=== PATIENT | female | born 1985 | race Caucasian/White ===

== ENCOUNTER 2017-02-01 05:39 | Outpatient (CLI) | payer MEDICAID ==
[~2017-02-01] VITALS: Ht 172.7 cm; Wt 103.9 kg
[~2017-02-01 05:39] MED LIST: AC325T PO; ALBU17AE23 IH; AMOX1TAB12 PO; AMOX500C2 PO; AMOX500T2 PO; ANTI ANXIETY; BUSP5TAB59 PO; BUTA1TAB55 PO; CEPH500C PO; CITA10TA70 PO; DCS100C PO; DULO60CA6 PO; FAMO40TA6 PO; FERR-74 PO; FLUO20CA25 PO; FLUO40CA PO; FRS325T PO; Famotidine PO; HYDR-1231 PO; HYDR-2997 PO; IBP800T PO; Ibuprofen PO; METR500T PO; NITR100C3 PO; ONDA4TAB11 PO; OXC5T PO; PNV1TABL67 PO; PREN-93 PO; PREN1TAB39 PO; PREN1TAB71 PO; PROP1TAB77; SULF-222 PO; TRM50T PO; ZPR40C PO; antibiotic PO
[2017-02-01] MEDS ORDERED: VILA40TA PO (14:20)
[2017-02-03] MEDS ORDERED: DICY10CA59 PO (11:56)
== END 2017-02-01 14:26 ==
LOC: PREOP 05:39
PROVIDERS: ATTEND Surgery Pediatric Surgery
DX: Z01.818 Encounter for other preprocedural examination (principal); R19.5 Other fecal abnormalities; R19.7 Diarrhea, unspecified

== ENCOUNTER → 2017-02-03 | Day surgery (SDC) | payer MEDICAID ==
[~2017-02-03] VITALS: Ht 172.7 cm; Wt 103.9 kg
[~2017-02-03] MED LIST changes: +ACETAMINOPHEN 325 MG TABLET/CAPLET (TYLENOL) PO PRN; +DICY10CA59 PO; +FLUMAZENIL (ROMAZICON) 0.1 MG/ML 5 ML VIAL INJ PRN; +HURRICAINE EXT TUBE (BENZOCAINE) XX PRN; +HYDROcodone/APAP 5 MG/325 MG (LORTAB) TAB PO PRN; +LIDOCAINE JELLY 2% (XYLOCAINE) 5 ML TUBE MM PRN; +MIDAZOLAM 2 MG/2 ML (VERSED) VIAL IVP PRN; +MIDAZOLAM 2 MG/2 ML (VERSED) VIAL ONE; +NALOXONE 0.4 MG/ML 1 ML (NARCAN) VIAL IVP PRN; +NS IV 1000 ML 0 ML ONE; +NS IV 500 ML 500 ML IV PRN; +NS IV 500 ML 500 ML ONE; +ONDANSETRON 4 MG/2 ML (SDV) Z0FRAN IV PRN; +VILA40TA PO; +fentaNYL INJECTION 100 MCG/2 ML AMP IVP PRN; +morphine INJ 10 MG/ML 1ML (SYR OR VIAL) IV PRN; +proPOfol 200 MG/20 ML (DIPRIVAN) VIAL IV ONE
[2017-02-03 09:05] VITALS: BP_SYST 133; BP_SYST 134; BP_DIAS 74; BP_DIAS 79
--- NOTE | 2017-02-03 09:43 | Conscious Sedation/ASA ---
Conscious Sedation Pre-Proced Time Reviewed: 09:40 ASA Class: 2 Airway Mallampati Classification: ([place] appropriate class) I. II. III, IV Lungs Heart ASA score ASA 1: a normal healthy patient ASA 2: a patient with a mild systemic disease (mid diabetes, controlled hypertension, obesity ASA 3: a patient with a severe systemic disease that limits activity (angina , COPD, prior Myocardial infarction) ASA 4: a patient with an incapacitating disease that is a constant threat to life (CHF, renal failure) ASA 5: a moribund patient not expected to survive 24 hrs. (ruptured aneurysm) ASA 6: a declared brain patient whose organs are being harvested. For emergent operations, add the letter E after the classification Grade 2 Sedation Plan: Analgesia, Amnesia, Plan communicated to team members, Discussed options with patient/fam, Discussed risks with patient/fam Note The patient is an appropriate candidate to undergo the planned procedure, sedation, and anesthesia. The patient immediately re-assessed prior to indication. ANGLE GARCIA MD Feb 03, 2017 9:43 am
--- NOTE | 2017-02-03 09:44 | Progress Note-Pre Operative ---
Pre-Operative Progress Note H&P Reviewed The H&P was reviewed, patient examined and no changes noted. Date H&P Reviewed: Feb 03, 2017 Time H&P Reviewed: 09:40 Pre-Operative Diagnosis: heme occ positive ANGLE GARCIA MD Feb 03, 2017 9:44 am
[2017-02-03 11:45] VITALS: BP 114/74
--- NOTE | 2017-02-03 11:55 | Progress Note-Post Operative ---
Post-Operative Progess Note Surgeon (s)/Cardiovascular Tech (s) Surgeon ANGLE GARCIA MD Cardiovascular Tech: none Pre-Operative Diagnosis heme occ positive Post-Operative Diagnosis chronic stage 2 ext and int hemorrhoids, small lesions anal canal, no inflammatory changes. Post-Op Procedure Note Date of Procedure: Feb 03, 2017 Name of Procedure Performed: Colonoscopy with bx. Description of the Procedure: Colonoscopy with bx. Findings of the Procedure . Anesthesia Type MAC Estimated blood loss (mL): minimal Specimen(s) collected/removed anal canal lesion. ANGLE GARCIA MD Feb 03, 2017 11:55 am
--- NOTE | 2017-02-03 11:57 | Discharge Inst-Surgical ---
D/C Lap Instructions-KIDO New, Converted, or Re-Newed RX: RX on Chart Follow Up PRN Activity as tolerated High Fiber Diet 25g or more per day Avoid Alcohol, Caffeine, Spicy [place] and Acid foods. Drink 64 fluid oz or more of fluids per day. Symptoms to Report: Fever over 101 degree F, Nausea/Vomiting If any problems/questions: Contact your physician or go to Emergency Room ANGLE GARCIA MD Feb 03, 2017 11:57 am
[2017-02-03 12:10] VITALS: BP 120/76
[2017-02-03 12:20] VITALS: BP 120/76
--- NOTE | 2017-02-03 15:02 | PROCEDURE REPORT ---
PROCEDURE PHYSICIAN: ANGLE GARCÍA DATE OF PROCEDURE: 02/03/2017 ATTENDING PRIMARY CARE PHYSICIAN: Dr. Josefa Jenkins. PREOPERATIVE DIAGNOSIS: 1. Chronic diarrhea. 2. Hemoccult positive stools. 3. Remote family history of colon cancer with her maternal grandfather having the disease. POSTOPERATIVE DIAGNOSES: 1. Chronic, stage II external and internal hemorrhoids. 2. Small multiple small lesions at the anal canal. 3. The remainder of the rectum and colon were normal. PROCEDURE: Colonoscopy with biopsy. SURGEON: Dr. García. ANESTHESIA: Monitored anesthesia care administered by anesthesia. ESTIMATED BLOOD LOSS: Minimal. FINDINGS: Chronic, stage II external and internal hemorrhoids. Within the anal canal just below the dentate line, were small fleshy projections which may indicate possible condyloma. The remainder of the rectum and colon were normal. There were no mucosal inflammatory changes, no polyps. DISPOSITION: The patient tolerated procedure well. Ms. Melisa Hartley is a 31-year-old female who is referred over to us for a colonoscopy. She has been having issues with diarrhea for a significant amount of time. She also reports crampy lower abdominal pain as well. She did have a Hemoccult test performed, which was positive. She also does report a remote family history of colon cancer with her maternal grandfather having the disease. The patient was brought to the endoscopy suite and laid in left lateral decubitus position. Due to her severe anxiety and needing MAC anesthesia in the past we consulted anesthesia for another MAC anesthesia. A digital rectal examination was performed. Chronic, stage II external and internal hemorrhoids were identified which were not actively edematous or inflamed and no bleeding. Normal sphincter tone was felt and there were no palpable mass. The endoscope was then intubated into the anus and the rectum gently insufflated. At just below the dentate line were small fleshy fingerlike projections. This may be consistent with condyloma. Biopsies were taken of one of these using forceps and electrocautery with visualization of good hemostasis. The endoscope was then advanced through the valves of Casey the rectum where no polyps or any neoplasms identified, as well as no mucosal inflammatory changes. The endoscope was then advanced through the sigmoid colon where no diverticulosis identified. The endoscope was advanced through the remainder of the descending, transverse, and ascending colon of the cecum. These segments were normal as well. There were no mucosal inflammatory changes or any polyps identified throughout the colon or rectum. The endoscope was slowly withdrawn while taking a second look and suctioning of residual air with no additional findings. The patient tolerated the procedure well. We will have her continue with medical management a high fiber diet with at least 25 grams of fiber per day to promote soft stools on a daily basis. We will also proceed with a trial of Bentyl for potential diarrhea, predominant irritable bowel syndrome, as well as [id number] antidiarrheals such as diphenoxylate. Job ID: [id number] Dictated Date: 02/03/2017 11:49:00 Facility Maintenance Worker Date: 02/03/2017 14:53:47 / vonnie
--- OUTSIDE RECORDS SUMMARY | 2017-03-07 16:43 | XMS REPORT ---
Author Author FABY GONZALEZ Organization 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
--- OUTSIDE RECORDS SUMMARY | 2017-03-07 16:43 | XMS REPORT ---
Author Author FABY GONZALEZ [facility] eClinicalWorks Address Unknown Phone Unavailable Care Team Providers Care Inspector Firearms Name Role Phone FABY GONZALEZ CP Unavailable Allergies No Known Allergies Problems Problem Type Condition Code Onset Dates Condition Status Assessment 30 weeks gestation of Z3A.30 Active Assessment Unspecified high-risk O09.90 Active Assessment Encounter for immunization Z23 Active Problem Major depressive disorder, recurrent episode, moderate F33.1 Active Problem Tobacco use affecting in second trimester, antepartum O99.332 Active Problem Generalized anxiety disorder F41.1 Active Problem ASCUS with positive high risk HPV 796.9 Active Problem Unspecified high-risk O09.90 Active Problem Atyp squam cell of undet signfc cyto smr crvx (ASC-US) R87.610 Active Problem Cervical high risk HPV (human papillomavirus) test positive R87.810 Active Medications No Known Medications Procedures Procedure Coding System Code Date Office Visit, Est Pt., Level 2 CPT-4 40564 Sep 17, 2015 TDAP (BOOSTRIX) CPT-4 46964 Sep 17, 2015 URINE-NO MICRO CPT-4 51492 Sep 17, 2015 SINGLE IMMUNIZATION ADMIN CPT-4 57777 Sep 17, 2015 Vital Signs Date/Time: Sep 17, 2015 Temperature 97.0 F Weight 224.9 lbs Height 68 in BMI 34.196 Index Blood Pressure Diastolic 70 mmHg Blood Pressure Systolic 126 mmHg Cardiac Monitoring Heart Rate 78 bpm Results Name Result Date Reference Range Unit Abnormality Flag UA OB DIP (IN HOUSE) Immunizations Vaccine Administration Date TDAP (BOOSTRIX) Sep 17, 2015 Summary Purpose eClinicalWorks Submission
--- OUTSIDE RECORDS SUMMARY | 2017-03-07 16:43 | XMS REPORT ---
Author Author FABY GONZALEZ [facility] eClinicalWorks Address Unknown Phone Unavailable Care Team Providers Care Culturist Name Role Phone FABY GONZALEZ Unavailable Allergies No Known Allergies Problems Problem Type Condition Code Onset Dates Condition Status Problem UTI in 646.60 Active Problem Vomiting 643.90 Active Problem ASCUS with positive high risk HPV 796.9 Active Problem Tobacco use disorder complicating , childbirth, or the puerperium, unspecified as to episode of care or not applicable 649.00 Active Assessment Dysuria R30.0 Active Problem Major depressive disorder, recurrent episode, moderate 296.32 Active Problem Unspecified high-risk V23.9 Active Medications No Known Medications Results No Known Results Summary Purpose eClinicalWorks Submission
--- OUTSIDE RECORDS SUMMARY | 2017-03-07 16:43 | XMS REPORT ---
Author Author SKY ANDERSON [facility] eClinicalWorks Address Unknown Phone Unavailable Care Team Providers Care Piping Blocker Name Role Phone SKY ANDERSON CP Unavailable Allergies, Adverse Reactions, Alerts Substance Reaction Event Type Naproxen Info Not Available Drug Allergy Problems Problem Type Condition Code Onset Dates Condition Status Problem UTI in 646.60 Active Problem Vomiting 643.90 Active Problem ASCUS with positive high risk HPV 796.9 Active Problem Tobacco use disorder complicating , childbirth, or the puerperium, unspecified as to episode of care or not applicable 649.00 Active Assessment Dental infection K04.7 Active Problem Major depressive disorder, recurrent episode, moderate 296.32 Active Problem Unspecified high-risk V23.9 Active Medications Medication Code System Code Instructions Start Date End Date Status Dosage BuSpar NDC 0 not defined One Daily [facility] [address] 27-0.8 MG Orally not defined Clindamycin HCl [facility] [address]-10 150 MG Orally 4 times a day Aug 07, 2015 Aug 17, 2015 2 caps for first dose then 1 capsule Procedures Procedure Coding System Code Date Office Visit, Est Pt., Level 3 CPT-4 60637 Aug 07, 2015 Vital Signs Date/Time: Aug 07, 2015 Temperature 97.0 F Weight 220.0 lbs Height 68 in BMI 33.451 Index Blood Pressure Diastolic 78 mmHg Blood Pressure Systolic 130 mmHg Cardiac Monitoring Heart Rate 80 bpm Results No Known Results Summary Purpose eClinicalWorks Submission
--- OUTSIDE RECORDS SUMMARY | 2017-03-07 16:43 | XMS REPORT ---
Author Author FABY GONZALEZ [facility] eClinicalWorks Address Unknown Phone Unavailable Care Team Providers Care Roller Shop Supervisor Name Role Phone FABY GONZALEZ Unavailable Allergies No Known Allergies Problems Problem Type Condition ICD-9 Code Onset Dates Condition Status Problem UTI in 646.60 Active Problem Vomiting 643.90 Active Problem ASCUS with positive high risk HPV 796.9 Active Problem Tobacco use disorder complicating , childbirth, or the puerperium, unspecified as to episode of care or not applicable 649.00 Active Assessment Unspecified high-risk V23.9 Active Problem Major depressive disorder, recurrent episode, moderate 296.32 Active Problem Unspecified high-risk V23.9 Active Medications No Known Medications Results No Known Results Summary Purpose eClinicalWorks Submission
--- OUTSIDE RECORDS SUMMARY | 2017-03-07 16:43 | XMS REPORT ---
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 Problem Generalized anxiety disorder F41.1 Active Problem Tobacco abuse Z72.0 Active Problem Cervical high risk HPV (human papillomavirus) test positive R87.810 Active Assessment Generalized anxiety disorder F41.1 Active Problem Major depressive disorder, recurrent episode, moderate F33.1 Active Problem Atyp squam cell of undet signfc cyto smr crvx (ASC-US) R87.610 Active Medications No Known Medications Procedures Procedure Coding System Code Date Psychotherapy, patient &/family, 30 minutes, established patient CPT-4 41595 May 11, 2016 Results No Known Results Summary Purpose Mobile [employer] Submission
--- OUTSIDE RECORDS SUMMARY | 2017-03-07 16:43 | XMS REPORT ---
Author Author FABY GONZALEZ Organization eClinicalWorks Address Unknown Phone Unavailable Care Team Providers Care Web Producer Name Role Phone FABY GONZALEZ CP Unavailable Allergies, Adverse Reactions, Alerts Substance Reaction Event Type Naproxen Info Not Available Drug Allergy Problems Problem Type Condition Code Onset Dates Condition Status Assessment Unspecified high-risk O09.90 Active Assessment 38 weeks gestation of Z3A.38 Active Problem Major depressive disorder, recurrent episode, [...] (human papillomavirus) test positive R87.810 Active Medications Medication Code System Code Instructions Start Date End Date Status Dosage Clindamycin HCl [facility] [address]-96 300 MG Orally every 8 hrs Nov 06, 2015 Nov 16, 2015 1 capsule Procedures Procedure Coding System Code Date Office Visit, Est Pt., Level 2 CPT-4 20912 Nov 13, 2015 URINE-NO MICRO CPT-4 46703 Nov 13, 2015 Vital Signs Date/Time: Nov 13, 2015 Temperature 98.4 F Weight 235.4 lbs Height 68 in BMI 35.792 Index Blood Pressure Diastolic 88 mmHg Blood Pressure Systolic 132 mmHg Cardiac Monitoring Heart Rate 84 bpm Results Name Result Date Reference Range Unit Abnormality Flag UA OB DIP (IN HOUSE) ----Glucose negative 20151113 ----Protein negative 20151113 Summary Purpose eClinicalWorks Submission
--- OUTSIDE RECORDS SUMMARY | 2017-03-07 16:43 | XMS REPORT ---
Author Author IRENA SHETH Organization eClinicalWorks Address Unknown Phone Unavailable Care Team Providers Care Inspector Wire Rope Name Role Phone IRENA SHETH CP Unavailable Allergies No Known Allergies Problems Problem Type Condition ICD-9 Code Onset Dates Condition Status Problem Vomiting 643.90 Active Problem Major depressive disorder, recurrent episode, moderate 296.32 Active Problem UTI in 646.60 Active Problem Tobacco use disorder complicating , childbirth, or the puerperium, unspecified as to episode of care or not applicable 649.00 Active Problem Unspecified high-risk V23.9 Active Problem Maternal drug dependence complicating , childbirth, or the puerperium, unspecified as to episode of care 648.30 Active Medications No Known Medications Results No Known Results Summary Purpose eClinicalWorks Submission
--- OUTSIDE RECORDS SUMMARY | 2017-03-07 16:43 | XMS REPORT ---
Author Author IRENA SHETH Organization eClinicalWorks Address Unknown Phone Unavailable Care Team Providers Care Property Manager Name Role Phone IRENA SHETH CP Unavailable Allergies No Known Allergies Problems Problem Type Condition ICD-9 Code Onset Dates Condition Status Problem Absence of menstruation 626.0 Active Problem Vomiting alone 787.03 Active Problem Cough 786.2 Active Problem Vomiting 643.90 Active Problem examination or test, negative result V72.41 Active Problem UTI in 646.60 Active Problem Major depressive disorder, recurrent episode, moderate 296.32 Active Problem Diarrhea 787.91 Active Problem Other malaise and fatigue 780.79 Active Problem Lump or mass in breast 611.72 Active Problem Tobacco use disorder complicating , childbirth, or the puerperium, unspecified as to episode of care or not applicable 649.00 Active Problem Maternal drug dependence complicating , childbirth, or the puerperium, unspecified as to episode of care 648.30 Active Problem Infections of genitourinary tract in , unspecified as to episode of care 646.60 Active Problem Abdominal pain, unspecified site 789.00 Active Problem Unspecified high-risk V23.9 Active Medications No Known Medications Results No Known Results Summary Purpose eClinicalWorks Submission
--- OUTSIDE RECORDS SUMMARY | 2017-03-07 16:43 | XMS REPORT ---
Author Author SUZANNE BURNHAM [facility] eClinicalWorks Address Unknown Phone Unavailable Care Team Providers Care Training And Development Coordinator Name Role Phone SUZANNE BURNHAM Unavailable Allergies [...] Coding System Code Date Psychotherapy, patient &/family, 45 minutes, established patient CPT-4 26595 Sep 16, 2016 Results No Known Results Summary Purpose [employer]Works Submission
--- OUTSIDE RECORDS SUMMARY | 2017-03-07 16:43 | XMS REPORT ---
Author Author FABY GONZALEZ [facility] eClinicalWorks Address Unknown Phone Unavailable Care Team Providers Care Office Rep Name Role Phone FABY GONZALEZ Unavailable Allergies [...] high-risk V23.9 Active Medications No Known Medications Procedures Procedure Coding System Code Date URINALYSIS, AUTO, W/O SCOPE CPT-4 43840 Aug 05, 2015 URINE CULTURE/COLONY COUNT CPT-4 10040 Aug 05, 2015 Results No Known Results Summary Purpose eClinicalWorks Submission
--- OUTSIDE RECORDS SUMMARY | 2017-03-07 16:43 | XMS REPORT ---
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 Problem Generalized anxiety disorder F41.1 Active Problem Tobacco abuse Z72.0 Active Problem Cervical high risk HPV (human papillomavirus) test positive R87.810 Active Assessment Encounter for Depo-Provera contraception Z30.42 Active Problem Major depressive disorder, recurrent episode, moderate F33.1 Active Problem Atyp squam cell of undet signfc cyto smr crvx (ASC-US) R87.610 Active Medications No Known Medications Procedures Procedure Coding System Code Date THER/PROPH/DIAG INJ, SC/IM CPT-4 46696 Sep 01, 2016 DEPO PROVERA (150 MG/ML) CPT-4 J1050 Sep 01, 2016 Results No Known Results Summary Purpose eClinicalWorks Submission
--- OUTSIDE RECORDS SUMMARY | 2017-03-07 16:43 | XMS REPORT ---
Author Author FABY GONZALEZ eClinicalWorks Address Unknown Phone Unavailable Care Team Providers Care Manager Latin Name Role Phone FABY GONZALEZ CP Unavailable Allergies No Known Allergies Problems Problem Type Condition Code Onset Dates Condition Status Assessment 37 weeks gestation of Z3A.37 Active Assessment Unspecified high-risk O09.90 Active Assessment Dental infection K04.7 Active Problem [...] Date End Date Status Dosage Clindamycin HCl [facility] [address]-93 300 MG Orally every 8 hrs Nov 06, 2015 Nov 16, 2015 1 capsule Procedures Procedure Coding System Code Date Office Visit, Est Pt., Level 2 CPT-4 83149 Nov 06, 2015 URINE-NO MICRO CPT-4 28518 Nov 06, 2015 Vital Signs Date/Time: Nov 06, 2015 Temperature 97.6 F Weight 231.4 lbs Height 68 in BMI 35.184 Index Blood Pressure Diastolic 78 mmHg Blood Pressure Systolic 117 mmHg Cardiac Monitoring Heart Rate 82 bpm Results Name Result Date Reference Range Unit Abnormality Flag UA OB DIP (IN HOUSE) ----Glucose negative 20151106 ----Protein negative [id number] Summary Purpose eClinicalWorks Submission
--- OUTSIDE RECORDS SUMMARY | 2017-03-07 16:43 | XMS REPORT ---
Author Author IRENA SHETH Organization eClinicalWorks Address Unknown Phone Unavailable Care Team Providers Care Vending Supervisor Name Role Phone IRENA SHETH CP Unavailable Allergies, Adverse Reactions, Alerts Substance Reaction Event Type Naproxen Info Not Available Drug Allergy Problems Problem Type Condition ICD-9 Code Onset [...] Lump or mass in breast 611.72 Active Assessment UTI in 646.60 Active Assessment Unspecified high-risk V23.9 Active Assessment Vomiting 643.90 Active Problem Tobacco use disorder complicating , childbirth, or the puerperium, unspecified as to episode of care or not applicable 649.00 Active Problem Maternal drug dependence complicating , childbirth, or the puerperium, unspecified as to episode of care 648.30 Active Assessment test positive V72.42 Active Problem Infections of genitourinary tract in , unspecified as to episode of care 646.60 Active Problem Abdominal pain, unspecified site 789.00 Active Problem Unspecified high-risk V23.9 Active Medications Medication Code System Code Instructions Start Date End Date Status Dosage BuSpar NDC 0 not defined Amoxicillin [facility] [address]-80 500 MG Orally Twice a day Jun 18, 2015 Jun 25, 2015 1 tablet Zofran ODT [facility] [address]-62 8 MG Orally every 8 hrs as needed Jun 18, 2015 as directed Procedures Procedure Coding System Code Date URINE CULTURE/COLONY COUNT CPT-4 75503 Jun 18, 2015 Office Visit, Est Pt., Level 3 CPT-4 68260 Jun 18, 2015 URINALYSIS, AUTO, W/O SCOPE CPT-4 86230 Jun 18, 2015 Vital Signs Date/Time: Jun 18, 2015 Temperature 98.7 F Weight 218.1 lbs Height 68 in BMI 33.16 Index Blood Pressure Diastolic 82 mmHg Blood Pressure Systolic 120 mmHg Cardiac Monitoring Heart Rate 76 bpm Results Name Result Date Reference Range Unit Abnormality Flag UA W/CULTURE IF INDICATED (IN HOUSE) CULTURE, URINE Summary Purpose eClinicalWorks Submission
--- OUTSIDE RECORDS SUMMARY | 2017-03-07 16:43 | XMS REPORT ---
Author Author FABY GONZALEZ [facility] eClinicalWorks Address Unknown Phone Unavailable Care Team Providers Care Biochemistry Professor Name Role Phone FABY GONZALEZ CP Unavailable [...] Medications Procedures Procedure Coding System Code Date DEPO PROVERA (150 MG/ML) CPT-4 J1050 Jun 15, 2016 THER/PROPH/DIAG INJ, SC/IM CPT-4 92225 Jun 15, 2016 URINE TEST CPT-4 95570 Jun 15, 2016 Results No Known Results Summary Purpose eClinicalWorks Submission
--- OUTSIDE RECORDS SUMMARY | 2017-03-07 16:43 | XMS REPORT ---
Author Author FABY GONZALEZ eClinicalWorks Address Unknown Phone Unavailable Care Team Providers Care Finish Mill Operator Name Role Phone FABY GONZALEZ CP Unavailable Allergies, Adverse Reactions, Alerts Substance Reaction Event Type Naproxen Info Not Available Drug Allergy Problems Problem Type Condition Code Onset Dates Condition Status Assessment Unspecified high-risk O09.90 Active Assessment 34 weeks gestation of Z3A.34 Active Problem Major depressive disorder, recurrent episode, [...] Instructions Start Date End Date Status Dosage One Daily [facility] [address] 27-0.8 MG Orally not defined BuSpar NDC 0 not defined Procedures Procedure Coding System Code Date Office Visit, Est Pt., Level 2 CPT-4 38866 Oct 15, 2015 URINE CULTURE/COLONY COUNT CPT-4 31734 Oct 15, 2015 URINALYSIS, AUTO, W/O SCOPE CPT-4 27550 Oct 15, 2015 Vital Signs Date/Time: Oct 15, 2015 Temperature 97.8 F Weight 229.4 lbs Height 68 in BMI 34.88 Index Blood Pressure Diastolic 84 mmHg Blood Pressure Systolic 126 mmHg Cardiac Monitoring Heart Rate 84 bpm Results Name Result Date Reference Range Unit Abnormality Flag UA LONG DIP (IN HOUSE) ----SIN 1+ 20151015 ----NIT negative 20151015 ----SG 1.015 20151015 ----KET negative 20151015 ----DOROTA negative 20151015 ----GLU negative 20151015 ----Odor no 20151015 ----pH 6.5 20151015 ----BLO negative 20151015 ----URO 0.2 20151015 ----Protein negative 20151015 ----Lot # [id number] ----Exp date 20151015 ----Clarity slightly cloudy 20151015 ----Color yellow 20151015 Summary Purpose eClinicalWorks Submission
--- OUTSIDE RECORDS SUMMARY | 2017-03-07 16:44 | XMS REPORT ---
Author Author SKY ANDERSON [facility] [place] eClinicalWorks Address Unknown Phone Unavailable Care Team Providers Care Meat Cutting Teacher Name Role Phone SKY ANDERSON CP Unavailable Allergies No Known Allergies Problems [...]
--- OUTSIDE RECORDS SUMMARY | 2017-03-07 16:45 | XMS REPORT ---
Author Author SUZANNE BURNHAM [facility] eClinicalWorks Address Unknown Phone Unavailable Care Team Providers Care Water Project Manager Name Role Phone SUZANNE BURNHAM Unavailable Allergies No Known Allergies Problems Problem Type Condition Code Onset Dates Condition Status Assessment Generalized anxiety disorder F41.1 Active Assessment Major depressive disorder, recurrent episode, moderate F33.1 Active Problem Major depressive disorder, recurrent episode, [...] Date End Date Status Dosage One Daily NDC 19608-34824 27-0.8 MG Orally not defined BuSpar NDC 0 not defined Procedures Procedure Coding System Code Date Psych diagnostic evaluation, established patient CPT-4 60980 Sep 11, 2015 Results No Known Results Summary Purpose eClinicalWorks Submission
--- OUTSIDE RECORDS SUMMARY | 2017-03-07 16:45 | XMS REPORT ---
Author Author IRENA SHETH Organization eClinicalWorks Address Unknown Phone Unavailable Care Team Providers Care Record Searcher Name Role Phone IRENA SHETH CP Unavailable Allergies, Adverse Reactions, Alerts Substance Reaction Event Type Naproxen Info Not Available Drug Allergy Problems Problem Type Condition ICD-9 Code Onset Dates Condition Status Assessment Pap test, as part of routine gynecological examination V76.2 Active Assessment Screen for STD (sexually transmitted disease) V74.5 Active Problem Vomiting 643.90 Active Problem Major depressive disorder, recurrent episode, moderate 296.32 Active Problem UTI in 646.60 Active Problem Tobacco use disorder complicating , childbirth, or the puerperium, unspecified as to episode of care or not applicable 649.00 Active Assessment Unspecified high-risk V23.9 Active Problem Unspecified high-risk V23.9 Active Problem Maternal drug dependence complicating , childbirth, or the puerperium, unspecified as to episode of care 648.30 Active Medications Medication Code System Code Instructions Start Date End Date Status Dosage BuSpar NDC 0 not defined Zofran ODT [facility] [address]-95 8 MG Orally every 8 hrs as needed Jun 18, 2015 as directed Amoxicillin [facility] [address]-26 500 MG Orally Twice a day Jun 18, 2015 Jun 25, 2015 1 tablet Procedures Procedure Coding System Code Date COMPREHEN METABOLIC PANEL CPT-4 08753 Jun 24, 2015 BLOOD TYPING, ABO CPT-4 82830 Jun 24, 2015 SPECIMEN HANDLING CPT-4 90363 Jun 24, 2015 COMPLETE CBC W/AUTO DIFF WBC CPT-4 17878 Jun 24, 2015 No Charge CPT-4 51327 Jun 24, 2015 BLOOD TYPING, RH (D) CPT-4 08681 Jun 24, 2015 RUBELLA ANTIBODY CPT-4 21034 Jun 24, 2015 CULTURE, BACTERIA, OTHER CPT-4 22662 Jun 24, 2015 TRICHOMONAS VAGIN, DIR PROBE CPT-4 76233 Jun 24, 2015 ASSAY THYROID STIM HORMONE CPT-4 07093 Jun 24, 2015 VENIPUNCT, ROUTINE* CPT-4 69362 Jun 24, 2015 Office Visit, Est Pt., Level 4 CPT-4 72691 Jun 24, 2015 DRUG SCREEN NON TLC DEVICES CPT-4 41148 Jun 24, 2015 RBC ANTIBODY SCREEN CPT-4 08379 Jun 24, 2015 Vital Signs Date/Time: Jun 24, 2015 Temperature 98.1 F Weight 219.7 lbs Height 68 in BMI 33.405 Index Blood Pressure Diastolic 80 mmHg Blood Pressure Systolic 122 mmHg Cardiac Monitoring Heart Rate 74 bpm Results Name Result Date Reference Range Unit Abnormality Flag TRICHOMONAS (IN HOUSE) TSH () Summary Purpose eClinicalWorks Submission
--- OUTSIDE RECORDS SUMMARY | 2017-03-07 16:45 | XMS REPORT ---
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 Active 638980119 Problem Atyp squam cell of undet signfc cyto smr crvx (ASC-US) R87.610 Active 318278686 Problem Cervical high risk HPV (human papillomavirus) test positive R87.810 Active 688111990 Problem Generalized anxiety disorder F41.1 Active 29467280 Problem Major depressive disorder, recurrent episode, moderate F33.1 Active [id number] ALLERGIES Unknown Allergies SOCIAL HISTORY No smoking Hx information available PLAN OF CARE VITAL SIGNS MEDICATIONS Unknown Medications RESULTS No Results PROCEDURES Procedure Date Ordered Related Diagnosis Body Site FLUARIX QUAD P-FREE 3 AND UP .50 2015Jul 20, 2016 SINGLE IMMUNIZATION ADMIN Jul 20, 2016 IMMUNIZATIONS Vaccine Route Administration Date Status FLUARIX QUAD P-FREE 3 AND UP .50 2015 IM Intramuscular Jul 20, 2016 Administered
--- OUTSIDE RECORDS SUMMARY | 2017-03-07 16:45 | XMS REPORT ---
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 Problem Generalized anxiety disorder F41.1 Active Problem Tobacco abuse Z72.0 Active Problem Cervical high risk HPV (human papillomavirus) test positive R87.810 Active Assessment Oral infection K12.2 Active Problem Major depressive disorder, recurrent episode, moderate F33.1 Active Problem Atyp squam cell of undet signfc cyto smr crvx (ASC-US) R87.610 Active Medications Medication Code System Code Instructions Start Date End Date Status Dosage Augmentin [facility] [address]-66 875-125 MG Orally every 12 hrs February 21, 2016 March 02, 2016 1 tablet HydrOXYzine HCl [facility] [address]-36 25 MG Orally every 8 hrs 1 tablet as needed Viibryd [facility] [address]-14 20 MG Orally Once a day 1 tablets with food Depo-Provera [facility] [address]-83 150 MG/ML Intramuscular 1 ml Chantix Continuing Month Devin [facility] [address]-51 1 MG Orally Twice a day February 20, 2016 April 20, 2016 1 tablet Procedures Procedure Coding System Code Date Office Visit, Est Pt., Level 3 CPT-4 91524 February 21, 2016 Vital Signs Date/Time: February 21, 2016 Temperature 98.8 F Weight 220.6 lbs Height 68 in BMI 33.54 Index Blood Pressure Diastolic 86 mmHg Blood Pressure Systolic 140 mmHg Cardiac Monitoring Heart Rate 84 bpm Results No Known Results Summary Purpose eClinicalWorks Submission
--- OUTSIDE RECORDS SUMMARY | 2017-03-07 16:45 | XMS REPORT ---
Author Author FABY GONZALEZ eClinicalWorks Address Unknown Phone Unavailable Care Team Providers Care Electronics Assembler And Tester Name Role Phone FABY GONZALEZ CP Unavailable Allergies No Known Allergies Problems Problem Type Condition Code Onset Dates Condition Status Problem Tobacco use affecting in second trimester, antepartum O99.332 Active Problem Atyp squam cell of undet signfc cyto smr crvx (ASC-US) R87.610 Active Problem Major depressive disorder, recurrent episode, moderate F33.1 Active Problem Unspecified high-risk O09.90 Active Assessment Unspecified high-risk O09.90 Active Problem Cervical high risk HPV (human papillomavirus) test positive R87.810 Active Problem ASCUS with positive high risk HPV 796.9 Active Medications No Known Medications Procedures Procedure Coding System Code Date Office Visit, Est Pt., Level 2 CPT-4 36450 Aug 20, 2015 URINE-NO MICRO CPT-4 81231 Aug 20, 2015 Vital Signs Date/Time: Aug 20, 2015 Temperature 98.0 F Weight 220.9 lbs Height 68 in BMI 33.588 Index Blood Pressure Diastolic 78 mmHg Blood Pressure Systolic 126 mmHg Cardiac Monitoring Heart Rate 82 bpm Results No Known Results Summary Purpose eClinicalWorks Submission
--- OUTSIDE RECORDS SUMMARY | 2017-03-07 16:45 | XMS REPORT | Continuity of Care Document ---
Author Author [facility] Address Unknown Phone Unavailable Allergies Active Description Code Type Severity Reaction Onset Reported/Identified Relationship to Patient Clinical Status Yes naproxen [id number] Drug Allergy Severe N/A 09/14/2008 Yes naproxen Drug Allergy 05/25/2009 Yes naproxen Drug Allergy N/A N/A 05/25/2009 Medications Problems Date Dx Coded Attending Type Code Diagnosis Diagnosed By 05/25/2009 V22.0 Supervision Of Normal First 05/25/2009 YESSY CHINO MD V22.0 Supervision Of Normal First 05/25/2009 EHSAN BUCHANAN APRN V22.0 Supervision Of Normal First 05/25/2009 EHSAN BUCHANAN APRN V22.0 Supervision Of Normal First 05/25/2009 IRENA SHETH APRN V22.0 Supervision Of Normal First 05/25/2009 IRENA SHETH APRN V22.0 Supervision Of Normal First 05/25/2009 DEBORAH BRYANT DDS V22.0 Supervision Of Normal First 05/25/2009 DEBORAH BRYANT DDS V22.0 Supervision Of Normal First 05/25/2009 ARMEN MCINTYRE APRN R V22.0 Supervision Of Normal First 05/25/2009 RICHARD NELSON APRN R V22.0 Supervision Of Normal First 05/25/2009 MAN BARRIENTOS, DAVID Finney V22.0 Supervision Of Normal First 08/06/2009 656.90 And Placental Problem Affecting Care Of Mother 08/06/2009 YESSY CHINO MD 656.90 And Placental Problem Affecting Care Of Mother 08/06/2009 EHSAN BUCHANAN APRN 656.90 And Placental Problem Affecting Care Of Mother 08/06/2009 EHSAN BUCHANAN APRN 656.90 And Placental Problem Affecting Care Of Mother 08/06/2009 MERYL VOLTAGE INSPECTOR, IRENA A 656.90 And Placental Problem Affecting Care Of Mother 08/06/2009 MERYL HAND, IRENA A 656.90 And Placental Problem Affecting Care Of Mother 08/06/2009 WHITE DDS, DEBORAH J 656.90 And Placental Problem Affecting Care Of Mother 08/06/2009 WHITE DDS, DEBORAH J 656.90 And Placental Problem Affecting Care Of Mother 08/06/2009 ARMEN MCINTYRE APRN R 656.90 And Placental Problem Affecting Care Of Mother 08/06/2009 RICHARD NELSON APRN R 656.90 And Placental Problem Affecting Care Of Mother 08/06/2009 MAN PHD, DAVID Finney 656.90 And Placental Problem Affecting Care Of Mother 08/13/2009 599.0 Urinary Tract Infection 08/13/2009 616.10 Vaginitis 08/13/2009 795.03 Pap Smear (+) Low Grade Squamous Intraepithelial Lesion 08/13/2009 YESSY CHINO MD 599.0 Urinary Tract Infection 08/13/2009 YESSY CHINO MD 616.10 Vaginitis 08/13/2009 YESSY CHINO MD 795.03 Pap Smear (+) Low Grade Squamous Intraepithelial Lesion 08/13/2009 EHSAN BUCHANAN APRN 599.0 Urinary Tract Infection 08/13/2009 EHSAN BUCHANAN APRN 616.10 Vaginitis 08/13/2009 EHSAN BUCHANAN APRN 795.03 Pap Smear (+) Low Grade Squamous Intraepithelial Lesion 08/13/2009 EHSAN BUCHANAN APRN 599.0 Urinary Tract Infection 08/13/2009 EHSAN BUCHANAN APRN 616.10 Vaginitis 08/13/2009 EHSAN BUCHANAN APRNH 795.03 Pap Smear (+) Low Grade Squamous Intraepithelial Lesion 08/13/2009 IRENA SHETH APRN A 599.0 Urinary Tract Infection 08/13/2009 IRENA SHETH APRN A 616.10 Vaginitis 08/13/2009 IRENA SHETH APRN A 795.03 Pap Smear (+) Low Grade Squamous Intraepithelial Lesion 08/13/2009 IRENA SHETH APRN A 599.0 Urinary Tract Infection 08/13/2009 MERYL FRANKN, IRENA A 616.10 Vaginitis 08/13/2009 MERYL APRN, IRENA A 795.03 Pap Smear (+) Low Grade Squamous Intraepithelial Lesion 08/13/2009 WHITE DDS, DEBORAH J 599.0 Urinary Tract Infection 08/13/2009 WHITE DDS, DEBORAH J 616.10 Vaginitis 08/13/2009 WHITE DDS, DEBORAH J 795.03 Pap Smear (+) Low Grade Squamous Intraepithelial Lesion 08/13/2009 WHITE DDS, DEBORAH J 599.0 Urinary Tract Infection 08/13/2009 WHITE DDS, DEBORAH J 616.10 Vaginitis 08/13/2009 WHITE DDS, DEBORAH J 795.03 Pap Smear (+) Low Grade Squamous Intraepithelial Lesion 08/13/2009 MIGUELINA HAND, ARMEN R 599.0 Urinary Tract Infection 08/13/2009 MIGUELINA HAND, ARMEN R 616.10 Vaginitis 08/13/2009 MIGUELINA HAND ARMEN R 795.03 Pap Smear (+) Low Grade Squamous Intraepithelial Lesion 08/13/2009 OMAR HAND, RICHARD R 599.0 Urinary Tract Infection 08/13/2009 OMAR FRANKN, RICHARD R 616.10 Vaginitis 08/13/2009 OMAR HAND, RICHARD R 795.03 Pap Smear (+) Low Grade Squamous Intraepithelial Lesion 08/13/2009 MAN PHD, DAVID Finney 599.0 Urinary Tract Infection 08/13/2009 MAN PHD, DAVID Finney 616.10 Vaginitis 08/13/2009 MAN PHD, DAVID Finney 795.03 Pap Smear (+) Low Grade Squamous Intraepithelial Lesion 10/15/2009 133.0 Scabies 10/15/2009 YESSY CHINO MD 133.0 Scabies 10/15/2009 EHSAN BUCHANAN APRN 133.0 Scabies 10/15/2009 EHSAN BUCHANAN APRN 133.0 Scabies 10/15/2009 MERYL HAND, IRENA A 133.0 Scabies 10/15/2009 MERYL APRN, IRENA A 133.0 Scabies 10/15/2009 WHITE DDS, DEBORAH J 133.0 Scabies 10/15/2009 WHITE DDS, DEBORAH J 133.0 Scabies 10/15/2009 MIGUELINA VOLTAGE INSPECTOR, ARMEN R 133.0 Scabies 10/15/2009 OMAR VOLTAGE INSPECTOR, RICHARD R 133.0 Scabies 10/15/2009 MAN PHD, DAVID Finney 133.0 Scabies 10/29/2009 599.0 Urinary Tract Infection, Site Not Specified 10/29/2009 YESSY CHINO MD 599.0 Urinary Tract Infection, Site Not Specified 10/29/2009 BUCHANAN VOLTAGE INSPECTOR, EHSAN BOLIVAR 599.0 Urinary Tract Infection, Site Not Specified 10/29/2009 BUCHANAN VOLTAGE INSPECTOR, EHSAN BOLIVAR 599.0 Urinary Tract Infection, Site Not Specified 10/29/2009 MERYL VOLTAGE INSPECTOR, IRENA A 599.0 Urinary Tract Infection, Site Not Specified 10/29/2009 MERYL VOLTAGE INSPECTOR, IRENA A 599.0 Urinary Tract Infection, Site Not Specified 10/29/2009 WHITE DDS, DEBORAH J 599.0 Urinary Tract Infection, Site Not Specified 10/29/2009 WHITE DDS, DEBORAH J 599.0 Urinary Tract Infection, Site Not Specified 10/29/2009 MIGUELINA VOLTAGE INSPECTOR, ARMEN R 599.0 Urinary Tract Infection, Site Not Specified 10/29/2009 OMAR VOLTAGE INSPECTOR, RICHARD R 599.0 Urinary Tract Infection, Site Not Specified 10/29/2009 MAN PHD, DAVID Finney 599.0 Urinary Tract Infection, Site Not Specified 11/20/2009 466.0 Acute Bronchitis 11/20/2009 YESSY CHINO MD 466.0 Acute Bronchitis 11/20/2009 BUCHANAN VOLTAGE INSPECTOR, EHSAN BOLIVAR 466.0 Acute Bronchitis 11/20/2009 BUCHANAN VOLTAGE INSPECTOR, EHSAN OSMEL 466.0 Acute Bronchitis 11/20/2009 MERYL VOLTAGE INSPECTOR, IRENA A 466.0 Acute Bronchitis 11/20/2009 MERYL VOLTAGE INSPECTOR, IRENA A 466.0 Acute Bronchitis 11/20/2009 WHITE DDS, DEBORAH J 466.0 Acute Bronchitis 11/20/2009 WHITE DDS, DEBORAH J 466.0 Acute Bronchitis 11/20/2009 MIGUELINA VOLTAGE INSPECTOR, ARMEN R 466.0 Acute Bronchitis 11/20/2009 OMAR HAND, RICHARD R 466.0 Acute Bronchitis 11/20/2009 MAN PHD, DAVID Finney 466.0 Acute Bronchitis 11/20/2009 Ot 646.83 11/20/2009 Ot 787.02 11/22/2009 Ot 646.83 11/22/2009 Ot 787.02 12/04/2009 782.1 Rash And Other Nonspecific Skin Eruption 12/04/2009 YESSY CHINO MD 782.1 Rash And Other Nonspecific Skin Eruption 12/04/2009 EHSAN BUCHANAN APRN 782.1 Rash And Other Nonspecific Skin Eruption 12/04/2009 EHSAN BUCHANAN APRN 782.1 Rash And Other Nonspecific Skin Eruption 12/04/2009 MERYLBecki HAND IRENA A 782.1 Rash And Other Nonspecific Skin Eruption 12/04/2009 MERYLKOREY Connell APRNIDI A 782.1 Rash And Other Nonspecific Skin Eruption 12/04/2009 WHITE DDS, DEBORAH J 782.1 Rash And Other Nonspecific Skin Eruption 12/04/2009 WHITE DDS, DEBORAH J 782.1 Rash And Other Nonspecific Skin Eruption 12/04/2009 MIGUELINA HAND ARMEN R 782.1 Rash And Other Nonspecific Skin Eruption 12/04/2009 OMAR HAND RICHARD R 782.1 Rash And Other Nonspecific Skin Eruption 12/04/2009 MAN BARRIENTOS, DAVID Finney 782.1 Rash And Other Nonspecific Skin Eruption 12/12/2009 655.70 Decreased Movements, Affecting Management Of Mother, Unspecified As To Episode Of Care Or Not Applicable 12/12/2009 YESSY CHINO MD 655.70 Decreased Movements, Affecting Management Of Mother, Unspecified As To Episode Of Care Or Not Applicable 12/12/2009 EHSAN BUCHANAN APRN 655.70 Decreased Movements, Affecting Management Of Mother, Unspecified As To Episode Of Care Or Not Applicable 12/12/2009 EHSAN BUCHANAN APRN 655.70 Decreased Movements, Affecting Management Of Mother, Unspecified As To Episode Of Care Or Not Applicable 12/12/2009 IRENA SHETH APRN A 655.70 Decreased Movements, Affecting Management Of Mother, Unspecified As To Episode Of Care Or Not Applicable 12/12/2009 IRENA SHETH APRN A 655.70 Decreased Movements, Affecting Management Of Mother, Unspecified As To Episode Of Care Or Not Applicable 12/12/2009 WHITE DDS, DEBORAH J 655.70 Decreased Movements, Affecting Management Of Mother, Unspecified As To Episode Of Care Or Not Applicable 12/12/2009 ANNETTE GABRIELSDEBORAH J 655.70 Decreased Movements, Affecting Management Of Mother, Unspecified As To Episode Of Care Or Not Applicable 12/12/2009 ARMEN MCINTYRE APRN R 655.70 Decreased Movements, Affecting Management Of Mother, Unspecified As To Episode Of Care Or Not Applicable 12/12/2009 RICHARD NELSON APRN R 655.70 Decreased Movements, Affecting Management Of Mother, Unspecified As To Episode Of Care Or Not Applicable 12/12/2009 MAN PHD, DAVID Finney 655.70 Decreased Movements, Affecting Management Of Mother, Unspecified As To Episode Of Care Or Not Applicable 05/09/2010 132.0 Lice Head 05/09/2010 YESSY CHINO MD 132.0 Lice Head 05/09/2010 EHSAN BUCHANAN APRN 132.0 Lice Head 05/09/2010 EHSAN BUCHANAN APRN 132.0 Lice Head 05/09/2010 MERYLBecki HAND IRENA A 132.0 Lice Head 05/09/2010 MERYLBecki HAND IRENA A 132.0 Lice Head 05/09/2010 DEBORAH BRYANT DDS J 132.0 Lice Head 05/09/2010 DEBORAH BRYANT DDS J 132.0 Lice Head 05/09/2010 ARMEN MCINTYRE APRN R 132.0 Lice Head 05/09/2010 ILIA ENLSON APRNINA R 132.0 Lice Head 05/09/2010 MAN PHD, DAVID Finney 132.0 Lice Head 08/29/2010 Ot 784.0 10/08/2010 305.1 NICOTINE DEPENDENCE 10/08/2010 346.90 MIGRAINE HEADACHE 10/08/2010 YESSY CHINO MD 305.1 NICOTINE DEPENDENCE 10/08/2010 YESSY CHINO MD 346.90 MIGRAINE HEADACHE 10/08/2010 EHSAN BUCHANAN APRN 305.1 NICOTINE DEPENDENCE 10/08/2010 DEWAYNE HAND, EHSAN BOLIVAR 346.90 MIGRAINE HEADACHE 10/08/2010 EHSAN BUCHANAN APRN 305.1 NICOTINE DEPENDENCE 10/08/2010 EHSAN BUCHANAN APRN 346.90 MIGRAINE HEADACHE 10/08/2010 MERYL FRANKN, IRENA A 305.1 NICOTINE DEPENDENCE 10/08/2010 MERYL FRANKN, IRENA A 346.90 MIGRAINE HEADACHE 10/08/2010 MERYL VOLTAGE INSPECTOR, IRENA A 305.1 NICOTINE DEPENDENCE 10/08/2010 MERYL FRANKN, IRENA A 346.90 MIGRAINE HEADACHE 10/08/2010 WHITE DDS, DEBORAH J 305.1 NICOTINE DEPENDENCE 10/08/2010 WHITE DDS, DEBORAH J 346.90 MIGRAINE HEADACHE 10/08/2010 WHITE DDS, DEBORAH J 305.1 NICOTINE DEPENDENCE 10/08/2010 WHITE DDS, DEBORAH J 346.90 MIGRAINE HEADACHE 10/08/2010 MIGUELINA HAND, ARMEN R 305.1 NICOTINE DEPENDENCE 10/08/2010 MIGUELINA HAND, ARMEN R 346.90 MIGRAINE HEADACHE 10/08/2010 OMAR HAND, RICHARD R 305.1 NICOTINE DEPENDENCE 10/08/2010 OMAR HAND, RICHARD R 346.90 MIGRAINE HEADACHE 10/08/2010 MAN BARRIENTOS, DAVID Finney 305.1 NICOTINE DEPENDENCE 10/08/2010 DAVID CONWAY PHD 346.90 MIGRAINE HEADACHE 10/16/2010 298.9 UNSPECIFIED PSYCHOSIS 10/16/2010 300.00 AN ANXIETY UNSPEC 10/16/2010 311 MO DEPRESS NOS 10/16/2010 YESSY CHINO MD 298.9 UNSPECIFIED PSYCHOSIS 10/16/2010 YESSY CHINO MD 300.00 AN ANXIETY UNSPEC 10/16/2010 YESSY CHINO MD 311 MO DEPRESS NOS 10/16/2010 BUCHANAN APRN, EHSAN OSMEL 298.9 UNSPECIFIED PSYCHOSIS 10/16/2010 BUCHANAN APRN, EHSAN OSMEL 300.00 AN ANXIETY UNSPEC 10/16/2010 DEWAYNE FRANKN, EHSAN SANCHEZH 311 MO DEPRESS NOS 10/16/2010 BUCHANAN VOLTAGE INSPECTOR, EHSAN OSMEL 298.9 UNSPECIFIED PSYCHOSIS 10/16/2010 DEWAYNE FRANKN, EHSAN SANCHEZH 300.00 AN ANXIETY UNSPEC 10/16/2010 BUCHANAN VOLTAGE INSPECTOR, EHSAN OSMEL 311 MO DEPRESS NOS 10/16/2010 MERYL VOLTAGE INSPECTOR, IRENA A 298.9 UNSPECIFIED PSYCHOSIS 10/16/2010 MERYL VOLTAGE INSPECTOR, IRENA A 300.00 AN ANXIETY UNSPEC 10/16/2010 MERYL VOLTAGE INSPECTOR, IRENA A 311 MO DEPRESS NOS 10/16/2010 MERYL VOLTAGE INSPECTOR, IRENA A 298.9 UNSPECIFIED PSYCHOSIS 10/16/2010 MERYL VOLTAGE INSPECTOR, IRENA A 300.00 AN ANXIETY UNSPEC 10/16/2010 MERYL VOLTAGE INSPECTOR, IRENA A 311 MO DEPRESS NOS 10/16/2010 WHITE DDS, DEBORAH J 298.9 UNSPECIFIED PSYCHOSIS 10/16/2010 WHITE DDS, DEBORAH J 300.00 AN ANXIETY UNSPEC 10/16/2010 WHITE DDS, DEBORAH J 311 MO DEPRESS NOS 10/16/2010 WHITE DDS, DEBORAH J 298.9 UNSPECIFIED PSYCHOSIS 10/16/2010 WHITE DDS, DEBORAH J 300.00 AN ANXIETY UNSPEC 10/16/2010 WHITE DDS, DEBORAH J 311 MO DEPRESS NOS 10/16/2010 MIGUELINA HAND, ARMEN R 298.9 UNSPECIFIED PSYCHOSIS 10/16/2010 MIGUELINA HAND, ARMEN R 300.00 AN ANXIETY UNSPEC 10/16/2010 MIGUELINA HAND ARMEN R 311 MO DEPRESS NOS 10/16/2010 OMAR HAND, RICHARD R 298.9 UNSPECIFIED PSYCHOSIS 10/16/2010 OMAR HAND, RICHARD R 300.00 AN ANXIETY UNSPEC 10/16/2010 OMAR HAND, RICHARD R 311 MO DEPRESS NOS 10/16/2010 MAN PHD, DAVID Finney 298.9 UNSPECIFIED PSYCHOSIS 10/16/2010 MAN PHD, DAVID Finney 300.00 AN ANXIETY UNSPEC 10/16/2010 MAN PHD, DAVID Finney 311 MO DEPRESS NOS 10/17/2010 Ot 846.0 10/17/2010 Ot 959.19 10/17/2010 Ot E000.8 10/17/2010 Ot E029.9 10/17/2010 Ot E849.0 10/17/2010 Ot E927.0 11/27/2010 296.90 MO MOOD DIS NOS 11/27/2010 300.02 AN GEN ANXIETY 11/27/2010 YESSY CHINO MD 296.90 MO MOOD DIS NOS 11/27/2010 YESSY CHINO MD 300.02 AN GEN ANXIETY 11/27/2010 EHSAN BUCHANAN APRN 296.90 MO MOOD DIS NOS 11/27/2010 EHSAN BUCHANAN APRN 300.02 AN GEN ANXIETY 11/27/2010 EHSAN BUCHANAN APRN 296.90 MO MOOD DIS NOS 11/27/2010 BUCHANANNANCY HAND EHSAN OSMEL 300.02 AN GEN ANXIETY 11/27/2010 MERYL APRN, IRENA A 296.90 MO MOOD DIS NOS 11/27/2010 MERYL VOLTAGE INSPECTOR, IRENA A 300.02 AN GEN ANXIETY 11/27/2010 MERYL FRANKN, IRENA A 296.90 MO MOOD DIS NOS 11/27/2010 MERYL HAND, IRENA A 300.02 AN GEN ANXIETY 11/27/2010 WHITE DDS, DEBORAH J 296.90 MO MOOD DIS NOS 11/27/2010 WHITE DDS, DEBORAH J 300.02 AN GEN ANXIETY 11/27/2010 WHITE DDS, DEBORAH J 296.90 MO MOOD DIS NOS 11/27/2010 WHITE DDS, DEBORAH J 300.02 AN GEN ANXIETY 11/27/2010 MIGUELINA HAND, ARMEN R 296.90 MO MOOD DIS NOS 11/27/2010 MIGUELINA HAND, ARMEN R 300.02 AN GEN ANXIETY 11/27/2010 OMAR HAND, RICHARD R 296.90 MO MOOD DIS NOS 11/27/2010 OMAR HAND, RICHARD R 300.02 AN GEN ANXIETY 11/27/2010 MAN PHD, DAVID Finney 296.90 MO MOOD DIS NOS 11/27/2010 MAN PHD, DAVID Finney 300.02 AN GEN ANXIETY 12/05/2010 616.10 Vaginitis 12/05/2010 V25.01 Oral Contraceptives 12/05/2010 V72.31 Routine Pelvic Exam 12/05/2010 V74.5 Visit For: Screening Exam Bact/spirochetal Venereal Disease 12/05/2010 YESSY CHINO MD 616.10 Vaginitis 12/05/2010 YESSY CHINO MD V25.01 Oral Contraceptives 12/05/2010 YESSY CHINO MD V72.31 Routine Pelvic Exam 12/05/2010 YESSY CHINO MD V74.5 Visit For: Screening Exam Bact/spirochetal Venereal Disease 12/05/2010 EHSAN BUCHANAN APRN 616.10 Vaginitis 12/05/2010 EHSAN BUCHANAN APRN V25.01 Oral Contraceptives 12/05/2010 EHSAN BUCHANAN APRN V72.31 Routine Pelvic Exam 12/05/2010 EHSAN BUCHANAN APRN V74.5 Visit For: Screening Exam Bact/ spirochetal Venereal Disease 12/05/2010 EHSAN BUCHANAN APRN 616.10 Vaginitis 12/05/2010 EHSAN BUCHANAN APRN V25.01 Oral Contraceptives 12/05/2010 EHSAN BUCHANAN APRN V72.31 Routine Pelvic Exam 12/05/2010 EHSAN BUCHANAN APRN V74.5 Visit For: Screening Exam Bact/ spirochetal Venereal Disease 12/05/2010 MERYL YAZAN IRENA A 616.10 Vaginitis 12/05/2010 MERYLBecki HAND IRENA A V25.01 Oral Contraceptives 12/05/2010 MERYLBecki HAND IRENA A V72.31 Routine Pelvic Exam 12/05/2010 MERYLBecki HAND IRENA A V74.5 Visit For: Screening Exam Bact/ spirochetal Venereal Disease 12/05/2010 MERYLBecki HAND IRENA A 616.10 Vaginitis 12/05/2010 MERYLBecki HAND IRENA A V25.01 Oral Contraceptives 12/05/2010 MERYLBecki HAND IRENA A V72.31 Routine Pelvic Exam 12/05/2010 MERYLBecki HAND IRENA A V74.5 Visit For: Screening Exam Bact/ spirochetal Venereal Disease 12/05/2010 WHITE DDS, DEBORAH J 616.10 Vaginitis 12/05/2010 WHITE DDS, DEBORAH J V25.01 Oral Contraceptives 12/05/2010 WHITE DDS, DEBORAH J V72.31 Routine Pelvic Exam 12/05/2010 WHITE DDS, DEBORAH J V74.5 Visit For: Screening Exam Bact/ spirochetal Venereal Disease 12/05/2010 WHITE DDS, DEBORAH J 616.10 Vaginitis 12/05/2010 WHITE DDS, DEBORAH J V25.01 Oral Contraceptives 12/05/2010 WHITE DDS, DEBORAH J V72.31 Routine Pelvic Exam 12/05/2010 WHITE DDS, DEBORAH J V74.5 Visit For: Screening Exam Bact/ spirochetal Venereal Disease 12/05/2010 ARMEN MCINTYRE APRN 616.10 Vaginitis 12/05/2010 MIGUELINA HAND, ARMEN R V25.01 Oral Contraceptives 12/05/2010 MIGUELINA HAND, ARMEN R V72.31 Routine Pelvic Exam 12/05/2010 NATALIE MCINTYRE APRNRICIA R V74.5 Visit For: Screening Exam Bact/ spirochetal Venereal Disease 12/05/2010 OMAR VOLTAGE INSPECTOR, RICHARD R 616.10 Vaginitis 12/05/2010 OMAR VOLTAGE INSPECTOR, RICHARD R V25.01 Oral Contraceptives 12/05/2010 OMAR VOLTAGE INSPECTOR, RICHARD R V72.31 Routine Pelvic Exam 12/05/2010 OMAR VOLTAGE INSPECTOR, RICHARD R V74.5 Visit For: Screening Exam Bact/ spirochetal Venereal Disease 12/05/2010 MAN PHD, DAVID Finney 616.10 Vaginitis 12/05/2010 MAN BARRIENTOS, DAVID Finney V25.01 Oral Contraceptives 12/05/2010 MAN PHD, DAVID Finney V72.31 Routine Pelvic Exam 12/05/2010 MAN BARRIENTOS, DAVID Finney V74.5 Visit For: Screening Exam Bact/ spirochetal Venereal Disease 01/25/2011 Ot 648.93 01/25/2011 Ot 922.31 01/25/2011 Ot 995.81 01/25/2011 Ot E000.8 01/25/2011 Ot E849.0 01/25/2011 Ot E960.0 01/25/2011 Ot E967.0 02/24/2011 796.2 Elevated Blood Pressure Reading Without Diagnosis Of Hypertension 02/24/2011 YESSY CHINO MD 796.2 Elevated Blood Pressure Reading Without Diagnosis Of Hypertension 02/24/2011 EHSAN BUCHANAN APRN 796.2 Elevated Blood Pressure Reading Without Diagnosis Of Hypertension 02/24/2011 EHSAN BUCHANAN APRN 796.2 Elevated Blood Pressure Reading Without Diagnosis Of Hypertension 02/24/2011 IRENA SHETH APRN 796.2 Elevated Blood Pressure Reading Without Diagnosis Of Hypertension 02/24/2011 IRENA SHETH APRN A 796.2 Elevated Blood Pressure Reading Without Diagnosis Of Hypertension 02/24/2011 DEBORAH BRYANT DDS 796.2 Elevated Blood Pressure Reading Without Diagnosis Of Hypertension 02/24/2011 DEBORAH BRYANT DDS 796.2 Elevated Blood Pressure Reading Without Diagnosis Of Hypertension 02/24/2011 MIGUELINA HAND, ARMEN R 796.2 Elevated Blood Pressure Reading Without Diagnosis Of Hypertension 02/24/2011 OMAR HAND RICHARD R 796.2 Elevated Blood Pressure Reading Without Diagnosis Of Hypertension 02/24/2011 MAN PHD, DAVID Finney 796.2 Elevated Blood Pressure Reading Without Diagnosis Of Hypertension 03/05/2011 785.1 Palpitations 03/05/2011 786.52 Chest Wall Pain 03/05/2011 YESSY CHINO MD 785.1 Palpitations 03/05/2011 YESSY CHINO MD 786.52 Chest Wall Pain 03/05/2011 BUCHANAN VOLTAGE INSPECTOR, EHSAN BOLIVAR 785.1 Palpitations 03/05/2011 BUCHANAN VOLTAGE INSPECTOR, EHSAN BOLIVAR 786.52 Chest Wall Pain 03/05/2011 BUCHANAN VOLTAGE INSPECTOR, EHSAN BOLIVAR 785.1 Palpitations 03/05/2011 BUCHANAN VOLTAGE INSPECTOR, EHSAN BOLIVAR 786.52 Chest Wall Pain 03/05/2011 MERYL VOLTAGE INSPECTOR, IRENA A 785.1 Palpitations 03/05/2011 MERYL VOLTAGE INSPECTOR, IRENA A 786.52 Chest Wall Pain 03/05/2011 MERYL VOLTAGE INSPECTOR, IRENA A 785.1 Palpitations 03/05/2011 MERYL VOLTAGE INSPECTOR, IRENA A 786.52 Chest Wall Pain 03/05/2011 WHITE DDS, DEBORAH J 785.1 Palpitations 03/05/2011 WHITE DDS, DEBORAH J 786.52 Chest Wall Pain 03/05/2011 WHITE DDS, DEBORAH J 785.1 Palpitations 03/05/2011 WHITE DDS, DEBORAH J 786.52 Chest Wall Pain 03/05/2011 MIGUELINA HAND, ARMEN R 785.1 Palpitations 03/05/2011 MIGUELINA FRANKN, ARMEN R 786.52 Chest Wall Pain 03/05/2011 OMAR HAND, RICHARD R 785.1 Palpitations 03/05/2011 OMAR HAND RICHARD R 786.52 Chest Wall Pain 03/05/2011 MAN BARRIENTOS, DAVID Finney 785.1 Palpitations 03/05/2011 MAN BARRIENTOS, DAVID Finney 786.52 Chest Wall Pain 08/24/2011 V22.1 , NORMAL OTHER 08/24/2011 YESSY CHINO MD V22.1 , NORMAL OTHER 08/24/2011 DEWAYNE FRANKNEHSAN V22.1 , NORMAL OTHER 08/24/2011 DEWAYNE FRANKNEHSAN V22.1 , NORMAL OTHER 08/24/2011 MERYLCHRIS FRANKN, IRENA A V22.1 , NORMAL OTHER 08/24/2011 MERYL VOLTAGE INSPECTOR, IRENA A V22.1 , NORMAL OTHER 08/24/2011 WHITE DDS, DEBORAH J V22.1 , NORMAL OTHER 08/24/2011 WHITE DDS, DEBORAH J V22.1 , NORMAL OTHER 08/24/2011 NATALIE MCINTYRE APRNRICIA R V22.1 , NORMAL OTHER 08/24/2011 OMAR HAND RICHARD R V22.1 , NORMAL OTHER 08/24/2011 MAN PHD, DAVID Finney V22.1 , NORMAL OTHER 09/02/2011 789.00 Abdominal Pain Unspecified Site 09/02/2011 YESSY CHINO MD 789.00 Abdominal Pain Unspecified Site 09/02/2011 EHSAN BUCHANAN APRN 789.00 Abdominal Pain Unspecified Site 09/02/2011 DEWAYNE FRANKN, EHSAN BOLIVAR 789.00 Abdominal Pain Unspecified Site 09/02/2011 MERYL FRANKN, IRENA A 789.00 Abdominal Pain Unspecified Site 09/02/2011 MERYL FRANKN, IRENA A 789.00 Abdominal Pain Unspecified Site 09/02/2011 ANNETTE DDS, DEBORAH J 789.00 Abdominal Pain Unspecified Site 09/02/2011 ANNETTE DDS, DEBORAH J 789.00 Abdominal Pain Unspecified Site 09/02/2011 NATALIE MCINTYRE APRNRICIA R 789.00 Abdominal Pain Unspecified Site 09/02/2011 OMAR HAND RICHARD R 789.00 Abdominal Pain Unspecified Site 09/02/2011 MAN PHD, DAVID Finney 789.00 Abdominal Pain Unspecified Site 09/07/2011 Ot 599.0 URIN TRACT INFECTION NOS 09/07/2011 Ot 646.63 INFECTION-ANTEPARTUM 10/12/2011 Ot 465.9 ACUTE URI NOS 10/12/2011 Ot 519.11 ACUTE BRONCHOSPASM 10/12/2011 Ot 786.2 COUGH 10/15/2011 692.9 Dermatitis Contact Unspecified 10/15/2011 YESSY CHINO MD 692.9 Dermatitis Contact Unspecified 10/15/2011 EHSAN BUCHANAN APRN 692.9 Dermatitis Contact Unspecified 10/15/2011 BUCHANANEHSAN THORNTON APRN 692.9 Dermatitis Contact Unspecified 10/15/2011 MERYL VOLTAGE INSPECTOR, IRENA A 692.9 Dermatitis Contact Unspecified 10/15/2011 MERYL VOLTAGE INSPECTOR, IRENA A 692.9 Dermatitis Contact Unspecified 10/15/2011 WHITE DDS, DEBORAH J 692.9 Dermatitis Contact Unspecified 10/15/2011 WHITE DDS, DEBORAH J 692.9 Dermatitis Contact Unspecified 10/15/2011 ARMEN MCINTYRE APRN R 692.9 Dermatitis Contact Unspecified 10/15/2011 RICHARD NELSON APRN R 692.9 Dermatitis Contact Unspecified 10/15/2011 MAN BARRIENTOS, DAVID Finney 692.9 Dermatitis Contact Unspecified 10/21/2011 599.0 Urinary Tract Infection 10/21/2011 616.10 Vaginitis Vulvovaginitis Unspecified 10/21/2011 YESSY CHINO MD 599.0 Urinary Tract Infection 10/21/2011 YESSY CHINO MD 616.10 Vaginitis Vulvovaginitis Unspecified 10/21/2011 EHSAN BUCHANAN APRN 599.0 Urinary Tract Infection 10/21/2011 EHSAN BUCHANAN APRN 616.10 Vaginitis Vulvovaginitis Unspecified 10/21/2011 EHSAN BUCHANAN APRN 599.0 Urinary Tract Infection 10/21/2011 BUCHANANEHSAN THORNTON APRN 616.10 Vaginitis Vulvovaginitis Unspecified 10/21/2011 MERYL VOLTAGE INSPECTOR, IRENA A 599.0 Urinary Tract Infection 10/21/2011 MERYL VOLTAGE INSPECTOR, IRENA A 616.10 Vaginitis Vulvovaginitis Unspecified 10/21/2011 MERYL VOLTAGE INSPECTOR, IRENA A 599.0 Urinary Tract Infection 10/21/2011 MERYL VOLTAGE INSPECTOR, IRENA A 616.10 Vaginitis Vulvovaginitis Unspecified 10/21/2011 ANNETTE DDS, DEBORAH J 599.0 Urinary Tract Infection 10/21/2011 WHITE DDS, DEBORAH J 616.10 Vaginitis Vulvovaginitis Unspecified 10/21/2011 WHITE DDS, DEBORAH J 599.0 Urinary Tract Infection 10/21/2011 WHITE DDS, DEBORAH J 616.10 Vaginitis Vulvovaginitis Unspecified 10/21/2011 MIGUELINA HAND, ARMEN R 599.0 Urinary Tract Infection 10/21/2011 MIGUELINA HAND ARMEN R 616.10 Vaginitis Vulvovaginitis Unspecified 10/21/2011 OMAR HAND RICHARD R 599.0 Urinary Tract Infection 10/21/2011 OMAR HAND RICHARD R 616.10 Vaginitis Vulvovaginitis Unspecified 10/21/2011 MAN PHD, DAVID Finney 599.0 Urinary Tract Infection 10/21/2011 MAN PHD, DAVID Finney 616.10 Vaginitis Vulvovaginitis Unspecified 11/26/2011 Ot 648.93 OTH CURR COND-ANTEPARTUM 11/26/2011 Ot 789.00 ABDOMINAL PAIN, UNSPECIFIED SITE 12/12/2011 296.32 MO DEPRESSIVE RECURRENT MODERATE 12/12/2011 YESSY CHINO MD 296.32 MO DEPRESSIVE RECURRENT MODERATE 12/12/2011 DEWAYEN HAND EHSAN OSMEL 296.32 MO DEPRESSIVE RECURRENT MODERATE 12/12/2011 DEWAYNE HAND EHSAN OSMEL 296.32 MO DEPRESSIVE RECURRENT MODERATE 12/12/2011 IRENA SHETH APRN A 296.32 MO DEPRESSIVE RECURRENT MODERATE 12/12/2011 KOREY SHETH APRNIDI A 296.32 MO DEPRESSIVE RECURRENT MODERATE 12/12/2011 ANNETTE DDSBEHZADON J 296.32 MO DEPRESSIVE RECURRENT MODERATE 12/12/2011 ANNETTE DDS, DEBORAH J 296.32 MO DEPRESSIVE RECURRENT MODERATE 12/12/2011 NATALIE MCINTYRE APRNRICIA R 296.32 MO DEPRESSIVE RECURRENT MODERATE 12/12/2011 OMAR HAND RICHARD R 296.32 MO DEPRESSIVE RECURRENT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
--- OUTSIDE RECORDS SUMMARY | 2017-03-07 16:45 | XMS REPORT ---
Author Author SUZANNE BUNRHAM [facility] Address [address] [place] [address] Care Team Providers Care Uniform Attendant Name Role Phone SUZANNE BURNHAM Unavailable PROBLEMS Type Condition ICD9-CM Code [id number] Code Onset Dates Condition Status SNOMED Code Problem Cervical high risk HPV (human papillomavirus) test positive R87.810 Active 909792138 Assessment Generalized anxiety disorder F41.1 Oct, Active 68879273 Problem Other chronic pain G89.29 Active 67878300 Problem Tobacco abuse Z72.0 Active 47850668 Problem Major depressive disorder, recurrent episode, moderate F33.1 Active 487132838 Problem Atyp squam cell of undet signfc cyto smr crvx (ASC-US) R87.610 Active 237313017 Problem History of methamphetamine abuse Z87.898 Active 730922477 Problem Generalized anxiety disorder F41.1 Active 95376900 ALLERGIES Unknown Allergies SOCIAL HISTORY No smoking Hx information available PLAN OF CARE VITAL SIGNS MEDICATIONS Unknown Medications RESULTS No Results PROCEDURES Procedure Date Ordered Related Diagnosis Body Site Psychotherapy, patient &/family, 45 minutes, established patient Oct 14, 2016 IMMUNIZATIONS No Known Immunizations
--- OUTSIDE RECORDS SUMMARY | 2017-03-07 16:46 | XMS REPORT ---
Author Author SUZANNE BURNHAM [facility] [employer] Address Unknown Phone Unavailable Care Team Providers Care Non Destructive Testing Supervisor Name Role Phone SUZANNE BURNHAM Unavailable Allergies [...] patient &/family, 45 minutes, established patient CPT-4 97269 Jun 01, 2016 Results No Known Results Summary Purpose [employer] Submission
--- OUTSIDE RECORDS SUMMARY | 2017-03-07 16:46 | XMS REPORT ---
Author Author FABY GONZALEZ [facility] e[employer] Address Unknown Phone Unavailable Care Team Providers Care Food Counter Worker Name Role Phone FABY GONZALEZ CP Unavailable Allergies No Known Allergies Problems Problem Type Condition Code Onset Dates Condition Status Assessment 32 weeks gestation of Z3A.32 Active Assessment Unspecified high-risk O09.90 Active Problem Major depressive disorder, recurrent episode, [...] Office Visit, Est Pt., Level 2 CPT-4 09698 Oct 01, 2015 NON-STRESS TEST CPT-4 49440 Oct 01, 2015 URINALYSIS, AUTO, W/O SCOPE CPT-4 42604 Oct 01, 2015 Vital Signs Date/Time: Oct 01, 2015 Temperature 97.8 F Weight 224.8 lbs Height 68 in BMI 34.181 Index Blood Pressure Diastolic 76 mmHg Blood Pressure Systolic 116 mmHg Cardiac Monitoring Heart Rate 78 bpm Results No Known Results Summary Purpose [employer] Submission
--- OUTSIDE RECORDS SUMMARY | 2017-03-07 16:46 | XMS REPORT ---
Author Author SUZANNE BURNHAM [facility] [employer] Address Unknown Phone Unavailable Care Team Providers Care Collision Technician Name Role Phone SUZANNE BURNHAM Unavailable Allergies [...] patient &/family, 45 minutes, established patient CPT-4 61883 February 25, 2016 Results No Known Results Summary Purpose [employer] Submission
--- OUTSIDE RECORDS SUMMARY | 2017-03-07 16:46 | XMS REPORT ---
Author Author FABY GONZALEZ [employer] Address Unknown Phone Unavailable Care Team Providers Care Mail List Librarian Name Role Phone FABY GONZALEZ CP Unavailable [...] Medications Procedures Procedure Coding System Code Date COMPLETE CBC W/AUTO DIFF WBC CPT-4 94548 Aug 27, 2015 VENIPUNCT, ROUTINE* CPT-4 70083 Aug 27, 2015 GLUCOSE TEST CPT-4 39978 Aug 27, 2015 Results Name Result Date Reference Range Unit Abnormality Flag ROUTINE VENIPUNCTURE Summary Purpose [employer]ClinicalWorks Submission
--- OUTSIDE RECORDS SUMMARY | 2017-03-07 16:46 | XMS REPORT ---
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 Active Problem Generalized anxiety disorder F41.1 Active Problem Tobacco abuse Z72.0 Active Problem Cervical high risk HPV (human papillomavirus) test positive R87.810 Active Assessment Tobacco abuse Z72.0 Active Problem Major depressive disorder, recurrent episode, moderate F33.1 Active Problem Atyp squam cell of undet signfc cyto smr crvx (ASC-US) R87.610 Active Medications Medication Code System Code Instructions Start Date End Date Status Dosage Viibryd [facility] [address]-09 20 MG Orally Once a day 1 tablets with food HydrOXYzine HCl [facility] [address]-43 25 MG Orally every 8 hrs 1 tablet as needed Depo-Provera [facility] [place] [address]-34 150 MG/ML Intramuscular 1 ml Chantix Continuing Month Devin [facility] [place] [address]-61 1 MG Orally Twice a day February 20, 2016 April 20, 2016 1 tablet Procedures Procedure Coding System Code Date [facility] NOBLL February 20, 2016 VENIPUNCT, ROUTINE* CPT-4 29036 February 20, 2016 Office Visit, Est Pt., Level 3 CPT-4 76819 February 20, 2016 Vital Signs Date/Time: February 20, 2016 Temperature 98.3 F Weight 222.0 lbs Height 68 in BMI 33.75 Index Blood Pressure Diastolic 90 mmHg Blood Pressure Systolic 142 mmHg Cardiac Monitoring Heart Rate 88 bpm Results Name Result Date Reference Range Unit Abnormality Flag ROUTINE VENIPUNCTURE BMP ----Calcium, Serum 8.8 20160220 8.7-10.2 mg/dL ----Sodium, Serum 141 20160220 134-144 mmol/L ----BUN/Creatinine Ratio 13 20160220 8-20 ----Chloride, Serum 104 20160220 97-108 mmol/L ----Carbon Dioxide, Total 21 20160220 18-29 mmol/L ----Potassium, Serum 3.5 20160220 3.5-5.2 mmol/L ----eGFR If NonAfricn Am 98 20160220 >59 mL/min/1.73 ----eGFR If Africn Am 113 [id number] >59 mL/min/1.73 ----BUN 10 20160220 6-20 mg/dL ----Creatinine, Serum 0.80 20160220 0.57-1.00 mg/dL ----Glucose, Serum 129 20160220 65-99 mg/dL H Summary Purpose eClinicalWorks Submission
--- OUTSIDE RECORDS SUMMARY | 2017-03-07 16:46 | XMS REPORT ---
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
--- OUTSIDE RECORDS SUMMARY | 2017-03-07 16:46 | XMS REPORT ---
Author Author FABY GONZALEZ eClinicalWorks Address Unknown Phone Unavailable Care Team Providers Care Production Supv Name Role Phone FABY GONZALEZ CP Unavailable Allergies, Adverse Reactions, Alerts Substance Reaction Event Type Naproxen Info Not Available Drug Allergy Problems Problem Type Condition Code Onset Dates Condition Status Assessment Breech presentation, not applicable or unspecified fetus O32.1XX0 Active Assessment screening for streptococcus B Z36 Active Assessment 36 weeks gestation of Z3A.36 Active Problem Major depressive disorder, recurrent episode, [...] Instructions Start Date End Date Status Dosage Albuterol Sulfate [facility] [address]-29 90 mcg/actuation Oct 19, 2014 inhale 1 puff by Inhalation route as needed every 4-6 hours PRN SOB, wheezing, cough BuSpar NDC 0 not defined Amoxicillin [facility] [address]-09 500 MG Orally every 12 hrs 1 tablet One Daily [facility] [address] 27-0.8 MG Orally not defined Procedures Procedure Coding System Code Date URINE-NO MICRO CPT-4 24573 Oct 29, 2015 Office Visit, Est Pt., Level 3 CPT-4 71724 Oct 29, 2015 DETECT AGNT MULT, DNA, AMPLI CPT-4 87942 Oct 29, 2015 Vital Signs Date/Time: Oct 29, 2015 Temperature 97.1 F Weight 232 lbs Height 68 in BMI 35.275 Index Blood Pressure Diastolic 84 mmHg Blood Pressure Systolic 124 mmHg Cardiac Monitoring Heart Rate 84 bpm Results Name Result Date Reference Range Unit Abnormality Flag CULTURE, GROUP B STREP (VAGINAL) ----Strep Gp B Culture Negative [id number] Negative Summary Purpose eClinicalWorks Submission
--- OUTSIDE RECORDS SUMMARY | 2017-03-07 16:46 | XMS REPORT ---
Author Author FABY GONZALEZ Organization [facility] Address [address] [place] [address] Care Team Providers Care Supervisor Fur Floor Worker Name Role Phone FABY GONZALEZ Unavailable PROBLEMS Type Condition ICD9-CM Code NNP93-SR Code Onset Dates Condition Status SNOMED Code Problem Tobacco abuse Z72.0 Active 57556146 Problem History of methamphetamine abuse Z87.898 Active 800701220 Problem Atyp squam cell of undet signfc cyto smr crvx (ASC-US) R87.610 Active 910730504 Problem Cervical high risk HPV (human papillomavirus) test positive R87.810 Active 825328550 Problem Generalized anxiety disorder F41.1 Active 74516516 Problem Major depressive disorder, recurrent episode, moderate F33.1 Active 300630805 ALLERGIES Unknown Allergies SOCIAL HISTORY No smoking Hx information available PLAN OF CARE VITAL SIGNS MEDICATIONS Medication Instructions Dosage Frequency Start Date End Date Duration Status Natroba 0.9 % as directed Jan, Active RESULTS No Results PROCEDURES No Known procedures IMMUNIZATIONS No Known Immunizations
--- OUTSIDE RECORDS SUMMARY | 2017-03-07 16:46 | XMS REPORT ---
Author Author SUZANNE BURNHAM [facility] eClinicalWorks Address Unknown Phone Unavailable Care Team Providers Care Boring Machine Operator Horizontal Name Role Phone SUZANNE BURNHAM Unavailable Allergies [...] patient &/family, 45 minutes, established patient CPT-4 52114 Dec 09, 2015 Results No Known Results Summary Purpose eClinicalWorks Submission
== END | disposition home or self-care (01) ==
LOC: ENDO 08:48
PROVIDERS: ATTEND Surgery Pediatric Surgery
DX: K64.1 Second degree hemorrhoids (principal); K62.9 Disease of anus and rectum, unspecified; I10 Essential (primary) hypertension; F32.9 Major depressive disorder, single episode, unspecified; F41.9 Anxiety disorder, unspecified
CPT/HCPCS: 84703; 88305

== ENCOUNTER 2017-03-16 16:55 | Emergency (ER) | payer MEDICAID ==
[~2017-03-16] VITALS: Ht 172.7 cm; Wt 103.9 kg
[~2017-03-16 16:55] MED LIST changes: -ACETAMINOPHEN 325 MG TABLET/CAPLET (TYLENOL) PO PRN; -FLUMAZENIL (ROMAZICON) 0.1 MG/ML 5 ML VIAL INJ PRN; -HURRICAINE EXT TUBE (BENZOCAINE) XX PRN; -HYDROcodone/APAP 5 MG/325 MG (LORTAB) TAB PO PRN; -LIDOCAINE JELLY 2% (XYLOCAINE) 5 ML TUBE MM PRN; -MIDAZOLAM 2 MG/2 ML (VERSED) VIAL IVP PRN; -MIDAZOLAM 2 MG/2 ML (VERSED) VIAL ONE; -NALOXONE 0.4 MG/ML 1 ML (NARCAN) VIAL IVP PRN; -NS IV 1000 ML 0 ML ONE; -NS IV 500 ML 500 ML IV PRN; -NS IV 500 ML 500 ML ONE; -ONDANSETRON 4 MG/2 ML (SDV) Z0FRAN IV PRN; -fentaNYL INJECTION 100 MCG/2 ML AMP IVP PRN; -morphine INJ 10 MG/ML 1ML (SYR OR VIAL) IV PRN; -proPOfol 200 MG/20 ML (DIPRIVAN) VIAL IV ONE
--- NOTE | 2017-03-16 18:17 | ED General ---
General Chief Complaint: Dizziness/Syncope Stated Complaint: VOMITING/DIZZINESS/CP/DENTAL PAIN Nursing Triage Note: PT STATES HER GUMS ARE INFLAMMED, DIZZY, VOMITED X1 TODAY, AND HAVING CHEST PAIN. Nursing Sepsis Screen: No Definite Risk Source of Information: Patient Exam Limitations: No Limitations History of Present Illness Time Seen by Provider: 18:03 Initial Comments This 31-year-old woman presents to the emergency room with numerous vague complaints including left-sided dental pain, dizziness, lightheadedness, vomiting 1, and chest pain. Most of the symptoms have been present for about a week except the chest pain which has been present just today. She has had diarrhea for about one year and is presently under workup for that. She had a colonoscopy about one month ago. She denies any new medications to correlate with the symptoms. She denies any cough or fever. Chest discomfort is worse with inspiration. Allergies and Home Medications Allergies Coded Allergies: naproxen (Unverified Allergy, Severe, 09/14/08) Home Medications Clindamycin HCl 300 Mg Capsule, 300 MG PO QID, #40 Prescribed by: DANAE GA on 03/16/17 1852 Dicyclomine HCl 10 Mg Capsule, 10 MG PO QID, #120 Prescribed by: ANGLE GARCIA on 02/03/17 1156 Vilazodone Hydrochloride 40 Mg Tablet, 40 MG PO HS, (Reported) Constitutional: no symptoms reported EENTM: see HPI Respiratory: see HPI Cardiovascular: no symptoms reported Gastrointestinal: see HPI Genitourinary: no symptoms reported : No Musculoskeletal: no symptoms reported Skin: no symptoms reported Psychiatric/Neurological: See HPI Hematologic/Lymphatic: No Symptoms Reported Past Yhqyffx-Pizmoh-Wwmzdk Hx Patient Social History Alcohol Use: Denies Use Recreational Drug Use: No Smoking Status: Former Smoker 2nd Hand Smoke Exposure: No Recent Foreign Travel: No Contact w/Someone Who Travel: No Recent Infectious Disease Expo: No Recent Hopitalizations: No Immunizations Up To Date Tetanus Booster (TDap): Unknown PED Vaccines UTD: Yes Date of Influenza Vaccine: Aug 27, 2016 Seasonal Allergies Seasonal Allergies: No Surgeries HX Surgeries: Yes Surgeries: Adenoidectomy, Gallbladder, Tonsillectomy Respiratory Hx Respiratory Disorders: No Cardiovascular Hx Cardiac Disorders: No Neurological Hx Neurological Disorders: No Reproductive System Hx Reproductive Disorders: No Sexually Transmitted Disease: No HIV/AIDS: No Genitourinary Hx Genitourinary Disorders: No Gastrointestinal Hx Gastrointestinal Disorders: Yes Gastrointestinal Disorders: Chronic Diarrhea Musculoskeletal Hx Musculoskeletal Disorders: No Endocrine Hx Endocrine Disorders: No HEENT HX ENT Disorders: No Loss of Vision: Denies Hearing Impairment: Denies Cancer Hx Cancer: No Psychosocial Hx Psychiatric Problems: Yes Behavioral Health Disorders: Anxiety, Bipolar, Depression Integumentary HX Skin/Integumentary Disorder: Yes (scarred arms and legs) Blood Transfusions Hx Blood Disorders: No Adverse Reaction to a Blood Tr: No Family Medical History Significant Family History: Heart Disease, Stroke Family Medial History: Patient reports no known family medical history. Physical Exam Vital Signs Vital Sign - Last 12Hours 03/16/17 03/16/17 17:06 19:03 Temp 98.5 Pulse 76 Resp 20 B/P (MAP) 140/81 Pulse Ox 99 O2 Delivery Room Air Capillary Refill : Less Than 3 Seconds General Appearance: No Apparent Distress, WD/WN HEENT: Normal ENT Inspection, Other (significant dental decay and gingivitis on the left lower jaw. Gums are swollen and inflamed.) Neck: Normal Inspection Respiratory: Chest Non Tender, Lungs Clear, Normal Breath Sounds, No Accessory Muscle Use, No Respiratory Distress, Other (no wheezing with forced expiration) Cardiovascular: Regular Rate, Rhythm, No Edema, No Murmur Gastrointestinal: Normal Bowel Sounds, Non Tender, Soft Extremity: Normal Capillary Refill, Normal Inspection, Non Tender, No Calf Tenderness, No Pedal Edema, Other (negative Blaise) Neurologic/Psychiatric: Alert, Oriented x3, No Motor/Sensory Deficits, Normal Mood/Affect, denture laboratory technician II-XII Norm as Tested Skin: Normal Color, Warm/Dry Progress/Results/Core Measures Results/Orders Lab Results Laboratory Tests Test 03/16/17 17:28 Range/Units White Blood Count 7.2 4.3-11.0 10^3/uL Red Blood Count 4.84 4.35-5.85 10^6/uL Hemoglobin 12.6 11.5-16.0 G/DL Hematocrit 39 35-52 % Mean Corpuscular Volume 80 80-99 FL Mean Corpuscular Hemoglobin 26 25-34 PG Mean Corpuscular Hemoglobin Concent 33 32-36 G/DL Red Cell Distribution Width 14.6 H 10.0-14.5 % Platelet Count 356 130-400 10^3/uL Mean Platelet Volume 10.2 7.4-10.4 FL Neutrophils (%) (Auto) 48 42-75 % Lymphocytes (%) (Auto) 41 12-44 % Monocytes (%) (Auto) 9 0-12 % Eosinophils (%) (Auto) 2 0-10 % Basophils (%) (Auto) 0 0-10 % Neutrophils # (Auto) 3.5 1.8-7.8 X 10^3 Lymphocytes # (Auto) 2.9 1.0-4.0 X 10^3 Monocytes # (Auto) 0.6 0.0-1.0 X 10^3 Eosinophils # (Auto) 0.2 0.0-0.3 10^3/uL Basophils # (Auto) 0.0 0.0-0.1 10^3/uL Sodium Level 139 135-145 MMOL/L Potassium Level 3.7 3.6-5.0 MMOL/L Chloride Level 112 H 98-107 MMOL/L Carbon Dioxide Level 17 L 21-32 MMOL/L Anion Gap 10 5-14 MMOL/L Blood Urea Nitrogen 8 7-18 MG/DL Creatinine 0.87 0.60-1.30 MG/DL Estimat Glomerular Filtration Rate > 60 BUN/Creatinine Ratio 9 Glucose Level 102 70-105 MG/DL Calcium Level 8.6 8.5-10.1 MG/DL Magnesium Level 2.3 1.8-2.4 MG/DL Total Bilirubin 0.7 0.1-1.0 MG/DL Aspartate Amino Transf (AST/SGOT) 21 5-34 U/L Alanine Aminotransferase (ALT/SGPT) 19 0-55 U/L Alkaline Phosphatase 106 40-136 U/L Total Protein 6.9 6.4-8.2 G/DL Albumin 4.0 3.2-4.5 G/DL Serum Test, Qualitative NEGATIVE NEGATIVE My Orders Orders - DANAE PHILLIPS MD Cbc With Automated Diff (03/16/17 18:12) Comprehensive Metabolic Panel (03/16/17 18:12) Hcg,Qualitative Serum (03/16/17 18:12) Magnesium (03/16/17 18:12) Chest Pa/Lat (2 View) (03/16/17 18:12) Saline Lock/Iv-Start (03/16/17 18:12) Vital Signs/I&O Vital Sign - Last 12Hours 03/16/17 03/16/17 17:06 19:03 Temp 98.5 97.3 Pulse 76 72 Resp 20 20 B/P (MAP) 140/81 Pulse Ox 99 O2 Delivery Room Air Blood Pressure Mean: 100 Progress Note : Time: 18:16 Progress Note Chest x-ray and labs pending. Patient seen and examined. Chest pain is worse with inspiration and atypical in nature. There is no tachycardia, lower extremity pain or tenderness, or hypoxia. Homans sign negative. Vital signs all within normal limits. Patient has significant gingivitis of the left lower jaw which may be a contributing factor to her symptoms. Diagnostic Imaging Diagonstic Imaging: Xray Plain Films/CT/US/NM/MRI: chest Comments Chest x-ray viewed by me and report reviewed. See report below: NAME: [facility] REC#: [id number] PT STATUS: DEP ER : 1985 PHYSICIAN: DANAE PHILLIPS MD ADMIT DATE: 03/16/17/ER Signed Date of Exam: 03/16/17 CHEST PA/LAT (2 VIEW) CLINICAL INDICATION: Patient with dizziness, vomiting x1 today and having chest pain. EXAM: Chest x-ray, PA and lateral views. COMPARISONS: Chest x-ray dated 07/13/2007. FINDINGS: Lungs/pleura: Lungs are clear. There is no pneumothorax. There is no pleural effusion. Mediastinum: Unremarkable. Pulmonary vasculature: Unremarkable. Heart: Unremarkable. Bones/extrathoracic soft tissue: Unremarkable. IMPRESSION: There is no radiographic evidence of acute cardiopulmonary process. Dictated by: Dictated on workstation # [id number] Dict: 03/16/171835 Trans: 03/16/171945 Interpreted by: KRISTEN LANDAVERDE MD Electronically signed by: KRISTEN LANDAVERDE MD 03/16/171945 Departure Impression Impression: Primary Impression: Lightheaded Additional Impressions: Gingivitis Dental caries Atypical chest pain Disposition: 01 HOME, SELF-CARE Condition: Stable Departure-Patient Inst. Decision time for Depature: 18:50 Referrals: FABY GONZALEZ MD (PCP/Family) Primary Care Physician Patient Instructions: Gingivitis (DC) Add. Discharge Instructions: Drink plenty of clear liquids. Follow-up with your primary care provider and your dentist as soon as possible. Ultimately, you need to have your effected teeth extracted. For pain you may take ibuprofen up to 600 mg every 6 hours as needed. You may also take Tylenol (acetaminophen) up to 1000 mg every 6 hours as needed for additional pain relief. You may use Orajel topically for pain as well. Return to emergency room if symptoms worsen. Complete your antibiotics as prescribed. All discharge instructions reviewed with patient and/or family. Voiced understanding. Scripts Clindamycin HCl (Clindamycin HCl) 300 Mg Capsule 300 MG PO QID, #40 CAP Prov: DANAE PHILLIPS MD 03/16/17 DANAE PHILLIPS MD March 16, 2017 18:17
[2017-03-16 18:18] LABS: BASOPHILS % (AUTO) 0 % (0-10); EOSINOPHILS # (AUTO) 0.2 10^3/uL (0.0-0.3); EOSINOPHILS % (AUTO) 2 % (0-10); LYMPHOCYTES # (AUTO) 2.9 X 10^3 (1.0-4.0); LYMPHOCYTES % (AUTO) 41 % (12-44); MEAN CORPUSCULAR HEMOGLOBIN 26 PG (25-34); MEAN CORPUSCULAR HGB CONC 33 G/DL (32-36); MEAN CORPUSCULAR VOLUME 80 FL (80-99); MEAN PLATELET VOLUME 10.2 FL (7.4-10.4); MONOCYTES # (AUTO) 0.6 X 10^3 (0.0-1.0); MONOCYTES % (AUTO) 9 % (0-12); NEUTROPHILS # (AUTO) 3.5 X 10^3 (1.8-7.8); NEUTROPHILS % (AUTO) 48 % (42-75); PLATELET COUNT 356 10^3/uL (130-400); RED BLOOD COUNT 4.84 10^6/uL (4.35-5.85); RED CELL DISTRIBUTION WIDTH 14.6 % (10.0-14.5); WHITE BLOOD COUNT 7.2 10^3/uL (4.3-11.0)
[2017-03-16 18:30] LABS: ALANINE AMINOTRANSFERASE 19 U/L (0-55); ANION GAP 10 MMOL/L (5-14); ASPARTATE AMINO TRANSFERASE 21 U/L (5-34); BILIRUBIN,TOTAL 0.7 MG/DL (0.1-1.0); BLOOD UREA NITROGEN 8 MG/DL (7-18); BUN/CREATININE RATIO 9; CALCIUM 8.6 MG/DL (8.5-10.1); CARBON DIOXIDE 17 MMOL/L (21-32); CHLORIDE 112 MMOL/L (98-107); CREATININE SERUM 0.87 MG/DL (0.60-1.30); GFR ESTIMATED > 60; GLUCOSE 102 MG/DL (70-105); MAGNESIUM 2.3 MG/DL (1.8-2.4); POTASSIUM 3.7 MMOL/L (3.6-5.0); SODIUM 139 MMOL/L (135-145); TOTAL PROTEIN 6.9 G/DL (6.4-8.2)
--- NOTE | 2017-03-16 18:40 | Diagnostic Imaging Report ---
CLINICAL INDICATION: Patient with dizziness, vomiting x1 today and having chest pain. EXAM: Chest x-ray, PA and lateral views. COMPARISONS: Chest x-ray dated 07/13/2007. FINDINGS: Lungs/pleura: Lungs are clear. There is no pneumothorax. There is no pleural effusion. Mediastinum: Unremarkable. Pulmonary vasculature: Unremarkable. Heart: Unremarkable. Bones/extrathoracic soft tissue: Unremarkable. IMPRESSION: There is no radiographic evidence of acute cardiopulmonary process. Dictated by: Dictated on workstation # [id number]
[2017-03-16] MEDS ORDERED: CLIN300C11 PO (18:52)
[2017-03-16 19:03] VITALS: BP 147/101
== END 2017-03-16 19:03 | disposition home or self-care (01) ==
LOC: EDUNIT# 16:55 → ER 16:56
DX: R42 Dizziness and giddiness (principal); K05.10 Chronic gingivitis, plaque induced; K02.9 Dental caries, unspecified; R07.89 Other chest pain
CPT/HCPCS: 36415; 71020; 80053; 83735; 84703; 85025

== ENCOUNTER 2017-10-31 17:33 | Emergency (ER) | payer MEDICAID ==
[~2017-10-31] VITALS: Ht 172.7 cm; Wt 113.4 kg
[~2017-10-31 17:33] MED LIST changes: +CLIN300C11 PO
--- OUTSIDE RECORDS SUMMARY | 2017-10-31 17:38 | XMS REPORT ---
Demographics Address [address] [place] [address] Preferred Language Unknown Marital Status Unknown Religion Affiliation Unknown Race Unknown Ethnic Group Unknown Author Author SUZANNE BURNHAM Organization [facility] Address [address] [place] [address] Care Team Providers Care Agricultural Science Professor Name Role Phone SUZANNE BURNHAM Unavailable PROBLEMS Type Condition ICD9-CM Code PUZ39-RS Code Onset Dates Condition Status SNOMED Code Problem Cervical high risk HPV (human papillomavirus) test positive R87.810 Active 881492423 Problem Major depressive disorder, recurrent episode, moderate F33.1 Active 899909635 Problem Atyp squam cell of undet signfc cyto smr crvx (ASC-US) R87.610 Active 756694870 Problem Anxiety F41.9 Active 08755558 Problem Alkaline phosphatase elevation R74.8 Active 945141389 Problem History of methamphetamine abuse Z87.898 Active 503009796 Problem Generalized anxiety disorder F41.1 Active 25890405 Problem Irritable bowel syndrome with diarrhea K58.0 Active 061238207 Problem Other chronic pain G89.29 Active 46063152 ALLERGIES No Information SOCIAL HISTORY Never Assessed PLAN OF CARE Activity Details Follow Up 3 Weeks Reason:BH F/U VITAL SIGNS MEDICATIONS Unknown Medications RESULTS No Results PROCEDURES Procedure Date Ordered Result Body Site Psychotherapy, patient &/family, 45 minutes, established patient March 12, 2017 IMMUNIZATIONS No Known Immunizations MEDICAL (GENERAL) HISTORY Type Description Date Medical History Tobacco abuse Surgical History tonsillectomy age 15 Surgical History cholecystectomy 2010 Surgical History colonoscopy 3 times Surgical History 4 natural births Hospitalization History Hospitalization for surgery only
--- OUTSIDE RECORDS SUMMARY | 2017-10-31 17:39 | XMS REPORT ---
Demographics Address [address] [place] [address] Preferred Language Unknown Marital Status Unknown Shinto Affiliation Unknown Race Unknown Ethnic Group Unknown Author Author SUZANNE BURNHAM [facility] Address [address] [place] [address] Care Team Providers Care Venetian Blind Installer Name Role Phone SUZANNE BURNHAM Unavailable PROBLEMS Type Condition ICD9-CM Code TTY56-DF Code Onset Dates Condition Status SNOMED Code Problem Atyp squam cell of undet signfc cyto smr crvx (ASC-US) R87.610 Active 787341709 Problem Cervical high risk HPV (human papillomavirus) test positive R87.810 Active 369017667 Problem Alkaline phosphatase elevation R74.8 Active 552893095 Problem Irritable bowel syndrome with diarrhea K58.0 Active 099354060 Problem Generalized anxiety disorder F41.1 Active 70870981 Problem Major depressive disorder, recurrent episode, moderate F33.1 Active 074589301 Problem Other chronic pain G89.29 Active 77478670 Problem History of methamphetamine abuse Z87.898 Active 914467781 ALLERGIES No Information SOCIAL HISTORY Never Assessed PLAN OF CARE Activity Details Follow Up 2 Weeks Reason:BH F/U VITAL SIGNS MEDICATIONS Unknown Medications RESULTS No Results PROCEDURES Procedure Date Ordered Result Body Site Psychotherapy, patient &/family, 45 minutes, established patient January 01, 2017 IMMUNIZATIONS No Known Immunizations MEDICAL (GENERAL) HISTORY Type Description Date Medical History Tobacco abuse Surgical History tonsillectomy age 15 Surgical History cholecystectomy 2010 Hospitalization History Hospitalization for surgery only
--- OUTSIDE RECORDS SUMMARY | 2017-10-31 17:39 | XMS REPORT ---
Author Author BETH MCCANN Organization [facility] Address [address] [place] [address] Care Team Providers Care Penal Officer Name Role Phone BETH MCCANN Unavailable PROBLEMS Type Condition ICD9-CM Code FJS50-HZ Code Onset Dates Condition Status SNOMED Code Problem Atyp squam cell of undet signfc cyto smr crvx (ASC-US) R87.610 Active 268834143 Problem Cervical high risk HPV (human papillomavirus) test positive R87.810 Active 036244344 Problem Alkaline phosphatase elevation R74.8 Active 175033041 Problem Irritable bowel syndrome with diarrhea K58.0 Active 333420324 Problem Generalized anxiety disorder F41.1 Active 09661395 Problem Major depressive disorder, recurrent episode, moderate F33.1 Active 674504317 Problem Other chronic pain G89.29 Active 11128574 Problem History of methamphetamine abuse Z87.898 Active 673755854 ALLERGIES Substance Reaction Event Type Date Status Naproxen Unknown Drug Allergy Nov, Active SOCIAL HISTORY No smoking Hx information available PLAN OF CARE Activity Details Follow Up prn Reason: VITAL SIGNS Height 68 in 2016-11-27 Weight 239.0 lbs 2016-11-27 Temperature 97.7 degrees Fahrenheit 2016-11-27 Heart Rate 74 bpm 2016-11-27 Respiratory Rate 18 2016-11-27 BMI 36.34 kg/m2 2016-11-27 Blood pressure systolic 120 mmHg 2016-11-27 Blood pressure diastolic 80 mmHg 2016-11-27 MEDICATIONS Medication Instructions Dosage Frequency Start Date End Date Duration Status Viibryd 20 MG Orally Once a day 1 tablets with food 24h Active Tizanidine HCl 4 MG Orally Three times a day 1 tablet as needed 8h 30 Sep, 2016 Active Depo-Provera 150 MG/ML 1 ml Active RESULTS Name Result Date Reference Range INFLUENZA A & B (IN HOUSE) 2016-11-27 INFLUENZA A negative INFLUENZA B negative Control + Lot # [id number] Exp date 2018-12-01 PROCEDURES Procedure Date Ordered Related Diagnosis Body Site INFLUENZA ASSAY W/OPTIC Nov 27, 2016 Office Visit, Est Pt., Level 3 Nov 27, 2016 IMMUNIZATIONS No Known Immunizations
--- OUTSIDE RECORDS SUMMARY | 2017-10-31 17:39 | XMS REPORT ---
Demographics Address [address] [place] [address] Preferred Language Unknown Marital Status Unknown Orthodoxy Affiliation Unknown Race Unknown Ethnic Group Unknown Author Author SUZANNE BURNHAM [facility] Address [address] [place] [address] Care Team Providers Care Parole Or Probation Officer Name Role Phone SUZANNE BURNHAM Unavailable PROBLEMS Type Condition ICD9-CM Code BVE12-VO Code Onset Dates Condition Status SNOMED Code Problem Atyp squam cell of undet signfc cyto smr crvx (ASC-US) R87.610 Active 646335868 Problem Cervical high risk HPV (human papillomavirus) test positive R87.810 Active 756648418 Problem Alkaline phosphatase elevation R74.8 Active 732601025 Problem Irritable bowel syndrome with diarrhea K58.0 Active 907530502 Problem Generalized anxiety disorder F41.1 Active 89169028 Problem Major depressive disorder, recurrent episode, moderate F33.1 Active 537833604 Problem Other chronic pain G89.29 Active 98778265 Problem History of methamphetamine abuse 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
--- OUTSIDE RECORDS SUMMARY | 2017-10-31 17:39 | XMS REPORT ---
Demographics Address [address] [place] [address] Preferred Language Unknown Marital Status Unknown Congregational Affiliation Unknown Race Unknown Ethnic Group Unknown Author Author FABY GONZALEZ [facility] Address [address] [place] [address] Care Team Providers Care Multimedia Authoring Specialist Name Role Phone FABY GONZALEZ Unavailable PROBLEMS Type Condition ICD9-CM Code DFS66-FB Code Onset Dates Condition Status SNOMED Code Problem Atyp squam cell of undet signfc cyto smr crvx (ASC-US) R87.610 Active 292227786 Problem Cervical high risk HPV (human papillomavirus) test positive R87.810 Active 362403687 Problem Alkaline phosphatase elevation R74.8 Active 987219421 Problem Irritable bowel syndrome with diarrhea K58.0 Active 800450622 Problem Generalized anxiety disorder F41.1 Active 82724818 Problem Major depressive disorder, recurrent episode, moderate F33.1 Active 906488790 Problem Other chronic pain G89.29 Active 33083180 Problem History of methamphetamine abuse 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 Active 558064399 ALLERGIES Substance Reaction Event Type Date Status Naproxen Unknown Drug Allergy Dec, Active SOCIAL HISTORY Never Assessed PLAN OF CARE Activity Details Follow Up prn Reason: VITAL SIGNS Height 68 in 2017-01-05 Weight 240 lbs 2017-01-05 Temperature 99 degrees Fahrenheit 2017-01-05 Heart Rate 86 bpm 2017-01-05 Respiratory Rate 20 2017-01-05 BMI 36.49 kg/m2 2017-01-05 Blood pressure systolic 110 mmHg 2017-01-05 Blood pressure diastolic 80 mmHg 2017-01-05 MEDICATIONS Medication Instructions Dosage Frequency Start Date End Date Duration Status Viibryd 20 MG Orally Once a day 1 tablets with food 24h Active Depo-Provera 150 MG/ML 1 ml Active Tizanidine HCl 4 MG Orally Three times a day 1 tablet as needed 8h 30 Sep, 2016 Active RESULTS Name Result Date Reference Range GGT 2017-01-05 GGT 17 0-60 ESR/SED RATE 2017-01-05 Sedimentation Rate-Westergren 24 0-32 CMP 2017-01-05 Glucose, Serum 113 65-99 BUN 7 6-20 Creatinine, Serum 0.84 0.57-1.00 eGFR If NonAfricn Am 92 >59 eGFR If Africn Am 106 >59 BUN/Creatinine Ratio 8 8-20 Sodium, Serum 142 134-144 Potassium, Serum 3.5 3.5-5.2 Chloride, Serum 105 96-106 Carbon Dioxide, Total 24 18-29 Calcium, Serum 8.4 8.7-10.2 Protein, Total, Serum 6.4 6.0-8.5 Albumin, Serum 3.8 3.5-5.5 Globulin, Total 2.6 1.5-4.5 A/G Ratio 1.5 1.1-2.5 Bilirubin, Total 0.4 0.0-1.2 Alkaline Phosphatase, S 115 39-117 AST (SGOT) 12 0-40 ALT (SGPT) 7 0-32 PROCEDURES Procedure Date Ordered Result Body Site COMPREHEN METABOLIC PANEL January 05, 2017 ASSAY OF GGT January 05, 2017 VENIPUNCT, ROUTINE* January 05, 2017 RBC SED RATE, AUTOMATED January 05, 2017 IMMUNIZATIONS No Known Immunizations MEDICAL (GENERAL) HISTORY Type Description Date Medical History Tobacco abuse Surgical History tonsillectomy age 15 Surgical History cholecystectomy 2010 Hospitalization History Hospitalization for surgery only
--- OUTSIDE RECORDS SUMMARY | 2017-10-31 17:39 | XMS REPORT ---
Author Author SUZANNE BURNHAM [facility] Address [address] [place] [address] Care Team Providers Care Deputy Bailiff Name Role Phone SUZANNE BURNHAM Unavailable PROBLEMS Type Condition ICD9-CM Code BAY00-ZH Code Onset Dates Condition Status SNOMED Code Problem Atyp squam cell of undet signfc cyto smr crvx (ASC-US) R87.610 Active 839727394 Problem Cervical high risk HPV (human papillomavirus) test positive R87.810 Active 788435176 Problem Alkaline phosphatase elevation R74.8 Active 667583886 Problem Irritable bowel syndrome with diarrhea K58.0 Active 568743524 Problem Generalized anxiety disorder F41.1 Active 25094559 Problem Major depressive disorder, recurrent episode, moderate F33.1 Active 595498383 Problem Other chronic pain G89.29 Active 84113397 Problem History of methamphetamine abuse Z87.898 Active 640429763 ALLERGIES Unknown Allergies SOCIAL HISTORY No smoking Hx information available PLAN OF CARE Activity Details Follow Up 1 Week Reason:BH F/U VITAL SIGNS MEDICATIONS Unknown Medications RESULTS No Results PROCEDURES Procedure Date Ordered Related Diagnosis Body Site Psychotherapy, patient &/family, 45 minutes, established patient Nov 19, 2016 IMMUNIZATIONS No Known Immunizations
--- OUTSIDE RECORDS SUMMARY | 2017-10-31 17:39 | XMS REPORT ---
Demographics Address [address] [place] [address] Preferred Language Unknown Marital Status Unknown Taoist Affiliation Unknown Race Unknown Ethnic Group Unknown Author Author SUZANNE BURNHAM [facility] Address [address] [place] [address] Care Team Providers Care Camp Nurse Name Role Phone SUZANNE BURNHAM Unavailable PROBLEMS Type Condition ICD9-CM Code [id number] Code Onset Dates Condition Status SNOMED Code Problem Cervical high risk HPV (human papillomavirus) test positive R87.810 Active 779557743 Problem Major depressive disorder, recurrent episode, moderate F33.1 Active 004012729 Problem Atyp squam cell of undet signfc cyto smr crvx (ASC-US) R87.610 Active 765202653 Problem Anxiety F41.9 Active 03240816 Problem Alkaline phosphatase elevation R74.8 Active 902800251 Problem History of methamphetamine abuse Z87.898 Active 766306009 Problem Generalized anxiety disorder F41.1 Active 31480305 Problem Irritable bowel syndrome with diarrhea K58.0 Active 823357890 Problem Other chronic pain G89.29 Active 08811118 ALLERGIES No Information SOCIAL HISTORY Never Assessed PLAN OF CARE VITAL SIGNS MEDICATIONS Unknown Medications RESULTS No Results PROCEDURES No Known procedures IMMUNIZATIONS No Known Immunizations MEDICAL (GENERAL) HISTORY Type Description Date Medical History Tobacco abuse Surgical History tonsillectomy age 15 Surgical History cholecystectomy 2010 Surgical History colonoscopy 3 times Surgical History 4 natural births Hospitalization History Hospitalization for surgery only
--- OUTSIDE RECORDS SUMMARY | 2017-10-31 17:39 | XMS REPORT ---
Author Author FABY GONZALEZ Organization [facility] Address [address] [place] [address] Care Team Providers Care Gate Watchman Name Role Phone FABY GONZALEZ Unavailable PROBLEMS Type Condition ICD9-CM Code [id number] Code Onset Dates Condition Status SNOMED Code Problem Atyp squam cell of undet signfc cyto smr crvx (ASC-US) R87.610 Active 301149846 Problem Cervical high risk HPV (human papillomavirus) test positive R87.810 Active 123510518 Problem Alkaline phosphatase elevation R74.8 Active 788415003 Problem Irritable bowel syndrome with diarrhea K58.0 Active 044072269 Problem Generalized anxiety disorder F41.1 Active 80712208 Problem Major depressive disorder, recurrent episode, moderate F33.1 Active 774865261 Problem Other chronic pain G89.29 Active 32563649 Problem History of methamphetamine abuse Z87.898 Active 194943031 ALLERGIES Unknown Allergies SOCIAL HISTORY No smoking Hx information available PLAN OF CARE VITAL SIGNS MEDICATIONS Medication Instructions Dosage Frequency Start Date End Date Duration Status Tizanidine HCl 4 MG Orally Three times a day 1 tablet as needed 8h 30 Sep, 2016 Active RESULTS No Results PROCEDURES No Known procedures IMMUNIZATIONS No Known Immunizations
--- OUTSIDE RECORDS SUMMARY | 2017-10-31 17:39 | XMS REPORT ---
Demographics Address [address] [place] [address] Preferred Language Unknown Marital Status Unknown Anabaptist Affiliation Unknown Race Unknown Ethnic Group Unknown Author Author FABY GONZALEZ [facility] Address [address] [place] [address] Care Team Providers Care Compound Worker Name Role Phone CARLOSKESHA GRIGGSY Unavailable PROBLEMS Type Condition ICD9-CM Code [id number]-[id number] Code Onset Dates Condition Status SNOMED Code Problem Atyp squam cell of undet signfc cyto smr crvx (ASC-US) R87.610 Active 559876874 Problem Cervical high risk HPV (human papillomavirus) test positive R87.810 Active 689405278 Problem Alkaline phosphatase elevation R74.8 Active 475452235 Problem Irritable bowel syndrome with diarrhea K58.0 Active 799435860 Problem Generalized anxiety disorder F41.1 Active 58355113 Problem Major depressive disorder, recurrent episode, moderate F33.1 Active 666902558 Problem Other chronic pain G89.29 Active 09193575 Problem History of methamphetamine abuse Z87.898 Active 400709100 ALLERGIES Substance Reaction Event Type Date Status Naproxen Unknown Drug Allergy Dec, Active SOCIAL HISTORY Never Assessed PLAN OF CARE Activity Details Follow Up 4 Weeks Reason:Diarrhea VITAL SIGNS Height 68 in 2016-12-09 Weight 248.2 lbs 2016-12-09 Temperature 99.0 degrees Fahrenheit 2016-12-09 Heart Rate 94 bpm 2016-12-09 Respiratory Rate 20 2016-12-09 BMI 37.73 kg/m2 2016-12-09 Blood pressure systolic 130 mmHg 2016-12-09 Blood pressure diastolic 88 mmHg 2016-12-09 MEDICATIONS Medication Instructions Dosage Frequency Start Date End Date Duration Status Depo-Provera 150 MG/ML 1 ml Active Viibryd 20 MG Orally Once a day 1 tablets with food 24h Active Tizanidine HCl 4 MG Orally Three times a day 1 tablet as needed 8h 30 Sep, 2016 Active RESULTS Name Result Date Reference Range TSH 2016-12-09 TSH 2.140 0.450-4.500 CBC 2016-12-09 WBC 8.9 3.4-10.8 RBC 5.00 3.77-5.28 Hemoglobin 12.9 11.1-15.9 Hematocrit 39.5 34.0-46.6 MCV 79 79-97 MCH 25.8 26.6-33.0 MCHC 32.7 31.5-35.7 RDW 14.5 12.3-15.4 Platelets 347 150-379 Neutrophils 60 Lymphs 33 Monocytes 6 Eos 1 Basos 0 Neutrophils (Absolute) 5.4 1.4-7.0 Lymphs (Absolute) 2.9 0.7-3.1 Monocytes(Absolute) 0.5 0.1-0.9 Eos (Absolute) 0.1 0.0-0.4 Baso (Absolute) 0.0 0.0-0.2 Immature Granulocytes 0 Immature Grans (Abs) 0.0 0.0-0.1 ESR/SED RATE 2016-12-09 Sedimentation Rate-Westergren 40 0-32 CMP 2016-12-09 Glucose, Serum 105 65-99 BUN 8 6-20 Creatinine, Serum 0.80 0.57-1.00 eGFR If NonAfricn Am 97 >59 eGFR If Africn Am 112 >59 BUN/Creatinine Ratio 10 8-20 Sodium, Serum 140 134-144 Potassium, Serum 3.8 3.5-5.2 Chloride, Serum 103 96-106 Carbon Dioxide, Total 21 18-29 Calcium, Serum 8.7 8.7-10.2 Protein, Total, Serum 6.9 6.0-8.5 Albumin, Serum 4.3 3.5-5.5 Globulin, Total 2.6 1.5-4.5 A/G Ratio 1.7 1.1-2.5 Bilirubin, Total 0.9 0.0-1.2 Alkaline Phosphatase, S 142 39-117 AST (SGOT) 18 0-40 ALT (SGPT) 16 0-32 PROCEDURES Procedure Date Ordered Result Body Site VENIPUNCT, ROUTINE* Dec 09, 2016 IMMUNIZATIONS No Known Immunizations MEDICAL (GENERAL) HISTORY Type Description Date Medical History Tobacco abuse Surgical History tonsillectomy age 15 Surgical History cholecystectomy 2009 Hospitalization History Hospitalization for surgery only
--- OUTSIDE RECORDS SUMMARY | 2017-10-31 17:40 | XMS REPORT ---
Author Author CARLOS FABY Organization [facility] Address [address] [place] [address] Care Team Providers Care Manufacturer'S Representative Name Role Phone FABY GONZALEZ Unavailable PROBLEMS Type Condition ICD9-CM Code [id number] Code Onset Dates Condition Status SNOMED Code Problem Atyp squam cell of undet signfc cyto smr crvx (ASC-US) R87.610 Active 265418144 Problem Cervical high risk HPV (human papillomavirus) test positive R87.810 Active 289427293 Problem Alkaline phosphatase elevation R74.8 Active 706875297 Problem Irritable bowel syndrome with diarrhea K58.0 Active 561625075 Problem Generalized anxiety disorder F41.1 Active 76830944 Problem Major depressive disorder, recurrent episode, moderate F33.1 Active 084501791 Problem Other chronic pain G89.29 Active 97439637 Problem History of methamphetamine abuse Z87.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
--- OUTSIDE RECORDS SUMMARY | 2017-10-31 17:40 | XMS REPORT ---
Demographics Address [address] [place] [address] Preferred Language Unknown Marital Status Unknown Latter-Day Affiliation Unknown Race Unknown Ethnic Group Unknown Author Author FABY GONZALEZ [facility] Address [address] [place] [address] Care Team Providers Care Regional Environmental Manager Name Role Phone CARLOSSHANICE GRIGGSHANY Unavailable PROBLEMS Type Condition ICD9-CM Code [id number] Code Onset Dates Condition Status SNOMED Code Problem Cervical high risk HPV (human papillomavirus) test positive R87.810 Active 168701266 Problem Major depressive disorder, recurrent episode, moderate F33.1 Active 196293333 Problem Atyp squam cell of undet signfc cyto smr crvx (ASC-US) R87.610 Active 657299909 Problem Anxiety F41.9 Active 66126625 Problem Alkaline phosphatase elevation R74.8 Active 177491488 Problem History of methamphetamine abuse 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 Active 595807669 Problem Generalized anxiety disorder F41.1 Active 82248085 Problem Irritable bowel syndrome with diarrhea K58.0 Active 486549766 Problem Other chronic pain G89.29 Active 34155435 ALLERGIES Substance Reaction Event Type Date Status Naproxen Unknown Drug Allergy March, Active SOCIAL HISTORY Never Assessed PLAN OF CARE Activity Details Follow Up Next avail well woman Reason: VITAL SIGNS Height 68 in 2017-03-09 Weight 247 lbs 2017-03-09 Temperature 98.9 degrees Fahrenheit 2017-03-09 Heart Rate 90 bpm 2017-03-09 Respiratory Rate 20 2017-03-09 BMI 37.55 kg/m2 2017-03-09 Blood pressure systolic 112 mmHg 2017-03-09 Blood pressure diastolic 84 mmHg 2017-03-09 MEDICATIONS Medication Instructions Dosage Frequency Start Date End Date Duration Status Viibryd 20 MG Orally Once a day 1 tablets with food 24h Active Tizanidine HCl 4 MG Orally Three times a day 1 tablet as needed 8h 30 Sep, 2016 Active Bentyl 10 MG Orally Four times a day 1 capsule 6h Active RESULTS No Results PROCEDURES No Known procedures IMMUNIZATIONS No Known Immunizations MEDICAL (GENERAL) HISTORY Type Description Date Medical History Tobacco abuse Surgical History tonsillectomy age 15 Surgical History cholecystectomy 2009 Surgical History colonoscopy 3 times Surgical History 4 natural births Hospitalization History Hospitalization for surgery only
--- OUTSIDE RECORDS SUMMARY | 2017-10-31 17:40 | XMS REPORT ---
Demographics Address [address] [place] [address] Preferred Language Unknown Marital Status Unknown Advent Affiliation Unknown Race Unknown Ethnic Group Unknown Author Author CARLOSFABY GRIGGS [facility] Address [address] [place] [address] Care Team Providers Care Third Hand Name Role Phone FABY GONZALEZ Unavailable PROBLEMS Type Condition ICD9-CM Code [id number] Code Onset Dates Condition Status SNOMED Code Problem Atyp squam cell of undet signfc cyto smr crvx (ASC-US) R87.610 Active 695435498 Problem Cervical high risk HPV (human papillomavirus) test positive R87.810 Active 473770361 Problem Alkaline phosphatase elevation R74.8 Active 516981950 Problem Irritable bowel syndrome with diarrhea K58.0 Active 821306649 Problem Generalized anxiety disorder F41.1 Active 31922355 Problem Major depressive disorder, recurrent episode, moderate F33.1 Active 034982622 Problem Other chronic pain G89.29 Active 63465100 Problem History of methamphetamine abuse Z87.898 Active 374532320 ALLERGIES No Information SOCIAL HISTORY Never Assessed PLAN OF CARE VITAL SIGNS MEDICATIONS Unknown Medications RESULTS Name Result Date Reference Range HEMOCCULT (IN HOUSE)-Additional 2017-01-13 RESULTS POSITIVE Control + Lot # [id number] Exp Date Oct 2017 HEMOCCULT (IN HOUSE) 2017-01-13 RESULTS POSITIVE Control + Lot # [id number] Exp date Oct 2017 CULTURE, STOOL 2017-01-13 Salmonella/Shigella Screen Final report Campylobacter Culture Final report E coli Shiga Toxin EIA Negative Negative Result 1 Result 1 STOOL (O & P) 2017-01-13 Ova + Parasite Exam Final report Result 1 STOOL (WBC) 2017-01-13 White Blood Cells (WBC), Stool Final report None Seen Result 1 PROCEDURES Procedure Date Ordered Result Body Site FECES CULTURE, BACTERIA January 13, 2017 OVA AND PARASITES SMEARS January 13, 2017 TEST FOR BLOOD, FECES January 13, 2017 SMEAR, COMPLEX STAIN January 13, 2017 LEUKOCYTE COUNT, FECAL January 13, 2017 IMMUNIZATIONS No Known Immunizations MEDICAL (GENERAL) HISTORY Type Description Date Medical History Tobacco abuse Surgical History tonsillectomy age 15 Surgical History cholecystectomy 2010 Hospitalization History Hospitalization for surgery only
--- OUTSIDE RECORDS SUMMARY | 2017-10-31 17:40 | XMS REPORT ---
Demographics Address [address] [place] [address] Preferred Language Unknown Marital Status Unknown Yarsani Affiliation Unknown Race Unknown Ethnic Group Unknown Author Author SUZANNE BURNHAM [facility] Address [address] [place] [address] Care Team Providers Care E Learning Developer Name Role Phone SUZANNE BURNHAM Unavailable PROBLEMS Type Condition ICD9-CM Code POL03-YL Code Onset Dates Condition Status SNOMED Code Problem Atyp squam cell of undet signfc cyto smr crvx (ASC-US) R87.610 Active 982564340 Problem Cervical high risk HPV (human papillomavirus) test positive R87.810 Active 073815565 Problem Alkaline phosphatase elevation R74.8 Active 634420856 Problem Irritable bowel syndrome with diarrhea K58.0 Active 804995350 Problem Generalized anxiety disorder F41.1 Active 47951823 Problem Major depressive disorder, recurrent episode, moderate F33.1 Active 938028029 Problem Other chronic pain G89.29 Active 41351519 Problem History of methamphetamine abuse Z87.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
--- OUTSIDE RECORDS SUMMARY | 2017-10-31 17:40 | XMS REPORT ---
Author Author ISADORA MILLER [facility] Address [address] [place] [address] Care Team Providers Care Mail Manager Name Role Phone ISADORA MILLER Unavailable PROBLEMS Type Condition ICD9-CM Code [id number] Code Onset Dates Condition Status SNOMED Code Problem Cervical high risk HPV (human papillomavirus) test positive R87.810 Active 795419679 Problem Major depressive disorder, recurrent episode, moderate F33.1 Active 991864170 Problem Atyp squam cell of undet signfc cyto smr crvx (ASC-US) R87.610 Active 218700133 Problem Anxiety F41.9 Active 18749238 Problem Alkaline phosphatase elevation R74.8 Active 294836187 Problem History of methamphetamine abuse Z87.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 Active 400215939 Problem Generalized anxiety disorder F41.1 Active 62808100 Problem Irritable bowel syndrome with diarrhea K58.0 Active 612492599 Problem Other chronic pain G89.29 Active 33779423 ALLERGIES No Information SOCIAL HISTORY Never Assessed PLAN OF CARE Activity Details Follow Up 2-3 Weeks Reason:F/U PT VITAL SIGNS MEDICATIONS Unknown Medications RESULTS No Results PROCEDURES Procedure Date Ordered Result Body Site PT EVAL MOD COMPLEX 30 MIN Dec 23, 2016 THERAPEUTIC EXERCISES Dec 23, 2016 IMMUNIZATIONS No Known Immunizations MEDICAL (GENERAL) HISTORY Type Description Date Medical History Tobacco abuse Surgical History tonsillectomy age 15 Surgical History cholecystectomy 2010 Surgical History colonoscopy 3 times Surgical History 4 natural births Hospitalization History Hospitalization for surgery only
--- OUTSIDE RECORDS SUMMARY | 2017-10-31 17:40 | XMS REPORT ---
Demographics Address [address] [place] [address] [place] [address] Preferred Language Unknown Marital Status Unknown Gnosticism Affiliation Unknown Race Unknown Ethnic Group Unknown Author Author FBAY GONZALEZ [facility] Address [address] [place] [address] Care Team Providers Care Resident Program Specialist Name Role Phone CARLOS FABY Unavailable PROBLEMS Type Condition ICD9-CM Code [id number] Code Onset Dates Condition Status SNOMED Code Problem Cervical high risk HPV (human papillomavirus) test positive R87.810 Active 113220129 Problem Major depressive disorder, recurrent episode, moderate F33.1 Active 894871685 Problem Atyp squam cell of undet signfc cyto smr crvx (ASC-US) R87.610 Active 303844282 Problem Anxiety F41.9 Active 79054104 Problem Alkaline phosphatase elevation R74.8 Active 201621582 Problem History of methamphetamine abuse Z87.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
--- OUTSIDE RECORDS SUMMARY | 2017-10-31 17:40 | XMS REPORT ---
Author Author SUZANNE BURNHAM Organization [facility] Address [address] [place] [address] Care Team Providers Care Paper Rewinder Operator Name Role Phone SUZANNE BURNHAM Unavailable PROBLEMS Type Condition ICD9-CM Code PRT54-ZO Code Onset Dates Condition Status SNOMED Code Problem Cervical high risk HPV (human papillomavirus) test positive R87.810 Active 164852084 Problem Major depressive disorder, recurrent episode, moderate F33.1 Active 543014319 Problem Atyp squam cell of undet signfc cyto smr crvx (ASC-US) R87.610 Active 911482041 Problem Anxiety F41.9 Active 66195610 Problem Alkaline phosphatase elevation R74.8 Active 570547045 Problem History of methamphetamine abuse Z87.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 Active 679193443 Problem Generalized anxiety disorder F41.1 Active 12025354 Problem Irritable bowel syndrome with diarrhea K58.0 Active 058690780 Problem Other chronic pain G89.29 Active 08953625 ALLERGIES No Information SOCIAL HISTORY Never Assessed PLAN OF CARE Activity Details Follow Up Next available Reason:BH F/U VITAL SIGNS MEDICATIONS Unknown Medications RESULTS No Results PROCEDURES Procedure Date Ordered Result Body Site Psychotherapy, patient &/family, 45 minutes, established patient January 14, 2017 IMMUNIZATIONS No Known Immunizations MEDICAL (GENERAL) HISTORY Type Description Date Medical History Tobacco abuse Surgical History tonsillectomy age 15 Surgical History cholecystectomy 2010 Surgical History colonoscopy 3 times Surgical History 4 natural births Hospitalization History Hospitalization for surgery only
--- OUTSIDE RECORDS SUMMARY | 2017-10-31 17:40 | XMS REPORT ---
Demographics Address [address] [place] [address] Preferred Language Unknown Marital Status Unknown Confucianist Affiliation Unknown Race Unknown Ethnic Group Unknown Author Author FABY GONZALEZ [facility] Address [address] [place] [address] Care Team Providers Care Solar System Designer Name Role Phone FABY GONZALEZ Unavailable PROBLEMS Type Condition ICD9-CM Code SIL49-JT Code Onset Dates Condition Status SNOMED Code Problem Atyp squam cell of undet signfc cyto smr crvx (ASC-US) R87.610 Active 266324764 Problem Cervical high risk HPV (human papillomavirus) test positive R87.810 Active 412453136 Problem Alkaline phosphatase elevation R74.8 Active 428036945 Problem Irritable bowel syndrome with diarrhea K58.0 Active 914339213 Problem Generalized anxiety disorder F41.1 Active 98648958 Problem Major depressive disorder, recurrent episode, moderate F33.1 Active 282290933 Problem Other chronic pain G89.29 Active 61829342 Problem History of methamphetamine abuse Z87.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
--- OUTSIDE RECORDS SUMMARY | 2017-10-31 17:42 | XMS REPORT | Continuity of Care Document ---
Author Author [facility] Address Unknown Phone Unavailable Allergies Active Description Code Type Severity Reaction Onset Reported/Identified Relationship to Patient Clinical Status Yes naproxen [id number] Drug Allergy Severe N/A 09/14/2008 Yes naproxen Drug Allergy 05/25/2009 Yes naproxen Drug Allergy N/A N/A 05/25/2009 Medications There is no data. Problems Date Dx Coded Attending Type Code [...] V22.0 Supervision Of Normal First 05/25/2009 MAN PHD, DAVID Finney V22.0 Supervision Of Normal First 08/06/2009 656.90 And Placental Problem Affecting Care Of Mother 08/06/2009 YESSY CHINO MD 656.90 And Placental Problem Affecting Care Of Mother 08/06/2009 EHSAN BUCHANAN APRN 656.90 And Placental Problem Affecting Care Of Mother 08/06/2009 EHSAN BUCHANAN APRN 656.90 And Placental Problem Affecting Care Of Mother 08/06/2009 IRENA SHETH APRN A 656.90 And Placental Problem Affecting Care Of Mother 08/06/2009 IRENA SHETH APRN A 656.90 And Placental Problem Affecting Care Of Mother 08/06/2009 WHITE DDS, DEBORAH J 656.90 And Placental Problem Affecting Care Of Mother 08/06/2009 WHITE DDS, DEBORAH J 656.90 And Placental Problem Affecting Care Of Mother 08/06/2009 ARMEN MCINTYRE APRN R 656.90 And Placental Problem Affecting Care Of Mother 08/06/2009 RICHARD NELSON APRN R 656.90 And Placental Problem Affecting Care Of Mother 08/06/2009 MAN BARRIENTOS, DAVID Finney 656.90 And Placental Problem Affecting Care Of Mother 08/13/2009 599.0 Urinary Tract Infection 08/13/2009 616.10 Vaginitis 08/13/2009 795.03 Pap Smear (+ ) Low Grade Squamous Intraepithelial Lesion 08/13/2009 YESSY CHINO MD 599.0 Urinary Tract Infection 08/13/2009 YESSY CHINO MD 616.10 Vaginitis 08/13/2009 YESSY CHINO MD 795.03 Pap Smear (+) Low Grade Squamous Intraepithelial Lesion 08/13/2009 EHSAN BUCHANAN APRN 599.0 Urinary Tract Infection 08/13/2009 EHSAN BUCHANAN APRNH 616.10 Vaginitis 08/13/2009 DEWAYNE HAND HESAN OSMEL 795.03 Pap Smear (+) Low Grade Squamous Intraepithelial Lesion 08/13/2009 EHSAN BUCHANAN APRN 599.0 Urinary Tract Infection 08/13/2009 DEWAYNE HAND, EHSAN OSMEL 616.10 Vaginitis 08/13/2009 DEWAYNE HAND [facility] 795.03 Pap Smear (+) Low Grade Squamous Intraepithelial Lesion 08/13/2009 IRENA SHETH APRN A 599.0 Urinary Tract Infection 08/13/2009 IRENA SHETH APRN A 616.10 Vaginitis 08/13/2009 IRENA SHETH APRN A 795.03 Pap Smear (+) Low Grade Squamous Intraepithelial Lesion 08/13/2009 IRENA SHETH APRN A 599.0 Urinary Tract Infection 08/13/2009 MERYL APRN, IRENA A 616.10 Vaginitis 08/13/2009 MERYLCHRIS HAND, IRENA A 795.03 Pap Smear (+) Low [...] R 599.0 Urinary Tract Infection 08/13/2009 MIGUELINA HAND ARMEN R 616.10 Vaginitis 08/13/2009 MIGUELINA HAND ARMEN R 795.03 Pap Smear (+) Low Grade Squamous Intraepithelial Lesion 08/13/2009 OMAR HAND, RICHARD R 599.0 Urinary Tract Infection 08/13/2009 OMAR HAND, RICHARD R 616.10 Vaginitis 08/13/2009 OMAR HAND, RICHARD R 795.03 Pap Smear (+) Low Grade Squamous Intraepithelial Lesion 08/13/2009 MAN PHD, DAVID Finney 599.0 Urinary Tract Infection 08/13/2009 MAN PHD, DAVID Finney 616.10 Vaginitis 08/13/2009 MAN BARRIENTOS, DAVID Finney 795.03 Pap Smear (+) Low Grade Squamous Intraepithelial Lesion 10/15/2009 133.0 Scabies 10/15/2009 YESSY CHINO MD 133.0 Scabies 10/15/2009 EHSAN BUCHANAN APRN 133.0 Scabies 10/15/2009 EHSAN BUCHANAN APRN 133.0 Scabies 10/15/2009 IRENA SHETH APRN A 133.0 Scabies 10/15/2009 KOREY SHETH APRNIDI A 133.0 Scabies 10/15/2009 WHITE DDS, DEBORAH J 133.0 Scabies 10/15/2009 WHITE DDS, DEBORAH J 133.0 Scabies 10/15/2009 MIGUELINA BUSINESS ANALYST PROJECT MANAGER, ARMEN R 133.0 Scabies 10/15/2009 OMAR HAND, RICHARD R 133.0 Scabies 10/15/2009 MAN PHD, DAVID Finney 133.0 Scabies 10/29/2009 599.0 Urinary Tract Infection, Site Not Specified 10/29/2009 YESSY CHINO MD 599.0 Urinary Tract Infection, Site Not Specified 10/29/2009 BUCHANAN BUSINESS ANALYST PROJECT MANAGER, EHSAN OSMEL 599.0 Urinary Tract Infection, Site Not Specified 10/29/2009 BUCHANAN BUSINESS ANALYST PROJECT MANAGER, EHSAN OSMEL 599.0 Urinary Tract Infection, Site Not Specified 10/29/2009 MERYL BUSINESS ANALYST PROJECT MANAGER, IRENA A 599.0 Urinary Tract Infection, Site Not Specified 10/29/2009 MERYL BUSINESS ANALYST PROJECT MANAGER, IRENA A 599.0 Urinary Tract Infection, Site Not Specified 10/29/2009 ANNETTE DDS, DEBORAH J 599.0 Urinary Tract Infection, Site Not Specified 10/29/2009 WHITE DDS, DEBORAH J 599.0 Urinary Tract Infection, Site Not Specified 10/29/2009 MIGUELINA FRANKN, ARMEN R 599.0 Urinary Tract Infection, Site Not Specified 10/29/2009 ILIA NELSON APRNINA R 599.0 Urinary Tract Infection, Site Not Specified 10/29/2009 MAN PHD, DAVID Finney 599.0 Urinary Tract Infection, Site Not Specified 11/20/2009 466.0 Acute Bronchitis 11/20/2009 YESSY CHINO MD 466.0 Acute Bronchitis 11/20/2009 BUCHANAN BUSINESS ANALYST PROJECT MANAGER, EHSAN OSMEL 466.0 Acute Bronchitis 11/20/2009 BUCHANAN BUSINESS ANALYST PROJECT MANAGER, EHSAN OSMEL 466.0 Acute Bronchitis 11/20/2009 MERYL BUSINESS ANALYST PROJECT MANAGER, IRENA A 466.0 Acute Bronchitis 11/20/2009 MERYL BUSINESS ANALYST PROJECT MANAGER, IRENA A 466.0 Acute Bronchitis 11/20/2009 WHITE DDS, DEBORAH J 466.0 Acute Bronchitis 11/20/2009 WHITE DDS, DEBORAH J 466.0 Acute Bronchitis 11/20/2009 MIGUELINA HAND, ARMEN R 466.0 Acute Bronchitis 11/20/2009 OMAR HAND RICHARD R 466.0 Acute Bronchitis 11/20/2009 MAN PHD, DAVID Finney 466.0 Acute Bronchitis 11/20/2009 Ot 646.83 11/20/2009 Ot 787.02 11/22/2009 Ot 646.83 11/22/2009 Ot 787.02 12/04/2009 782.1 Rash And Other Nonspecific Skin Eruption 12/04/2009 YESSY CHINO MD 782.1 Rash And Other Nonspecific Skin Eruption 12/04/2009 BUCHANAN BUSINESS ANALYST PROJECT MANAGEREHSAN 782.1 Rash And Other Nonspecific Skin Eruption 12/04/2009 BUCHANAN BUSINESS ANALYST PROJECT MANAGEREHSAN 782.1 Rash And Other Nonspecific Skin Eruption 12/04/2009 MERYL BUSINESS ANALYST PROJECT MANAGER, IRENA A 782.1 Rash And Other Nonspecific Skin Eruption 12/04/2009 MERYL BUSINESS ANALYST PROJECT MANAGER, IRENA A 782.1 Rash And Other Nonspecific Skin Eruption 12/04/2009 WHITE DDS, DEBORAH J 782.1 Rash And Other Nonspecific Skin Eruption 12/04/2009 WHITE DDS, DEBORAH J 782.1 Rash And Other Nonspecific Skin Eruption 12/04/2009 MCINTYRE BUSINESS ANALYST PROJECT MANAGER, ARMEN R 782.1 Rash And Other Nonspecific Skin Eruption 12/04/2009 OMAR BUSINESS ANALYST PROJECT MANAGER, RICHARD R 782.1 Rash And Other Nonspecific Skin Eruption 12/04/2009 MAN PHD, DAVID Finney 782.1 Rash And Other Nonspecific [...] Of Care Or Not Applicable 12/12/2009 EHSAN BUCHNAAN APRN 655.70 Decreased Movements, Affecting Management Of Mother, Unspecified As To Episode Of Care Or Not Applicable 12/12/2009 IRENA SHETH APRN A 655.70 Decreased Movements, Affecting Management Of Mother, Unspecified As To Episode Of Care Or Not Applicable 12/12/2009 IRENA SHETH APRN A 655.70 Decreased Movements, Affecting Management Of Mother, Unspecified As To Episode Of Care Or Not Applicable 12/12/2009 ANNETTE DDSDEBORAH J 655.70 Decreased Movements, Affecting Management Of Mother, Unspecified As To Episode Of Care Or Not Applicable 12/12/2009 ANNETTE DDSDEBORAH J 655.70 Decreased Movements, Affecting Management Of Mother, Unspecified As To Episode Of Care Or Not Applicable 12/12/2009 ARMEN MCINTYRE APRN R 655.70 Decreased Movements, Affecting Management Of Mother, Unspecified As To Episode Of Care Or Not Applicable 12/12/2009 ILIA NELSON APRNINA R 655.70 Decreased Movements, Affecting Management Of Mother, Unspecified As To Episode Of Care Or Not Applicable 12/12/2009 MAN PHD, DAVID Finney 655.70 Decreased Movements, Affecting Management Of Mother, Unspecified As To Episode Of Care Or Not Applicable 05/09/2010 132.0 Lice Head 05/09/2010 YESSY CHINO MD 132.0 Lice Head 05/09/2010 EHSAN BUCHANAN APRN 132.0 Lice Head 05/09/2010 EHSAN BUCAHNAN APRN 132.0 Lice Head 05/09/2010 MERYLBecki HAND IRENA A 132.0 Lice Head 05/09/2010 MERYLBecki HAND IRENA A 132.0 Lice Head 05/09/2010 DEBORAH BRYANT DDS J 132.0 Lice Head 05/09/2010 DEBORAH BRYANT DDS J 132.0 Lice Head 05/09/2010 ARMEN MCINTYRE APRN R 132.0 Lice Head 05/09/2010 ILAI NELSON APRNINA R 132.0 Lice Head 05/09/2010 MAN PHD, DAVID Finney 132.0 Lice Head 08/29/2010 Ot 784.0 10/08/2010 305.1 NICOTINE DEPENDENCE 10/08/2010 346.90 MIGRAINE HEADACHE 10/08/2010 YESSY CHINO MD 305.1 NICOTINE DEPENDENCE 10/08/2010 YESSY CHINO MD 346.90 MIGRAINE HEADACHE 10/08/2010 EHSAN BUCHANAN APRN 305.1 NICOTINE DEPENDENCE 10/08/2010 EHSAN BUCHANAN APRN 346.90 MIGRAINE HEADACHE 10/08/2010 EHSAN BUCHANAN APRN 305.1 NICOTINE DEPENDENCE 10/08/2010 EHSAN BUCHANAN APRN OSMEL 346.90 MIGRAINE HEADACHE 10/08/2010 MERYL FRANKN, IRENA A 305.1 NICOTINE DEPENDENCE 10/08/2010 MERYL BUSINESS ANALYST PROJECT MANAGER, IRENA A 346.90 MIGRAINE HEADACHE 10/08/2010 MERYL BUSINESS ANALYST PROJECT MANAGER, IRENA A 305.1 NICOTINE DEPENDENCE 10/08/2010 MERYL BUSINESS ANALYST PROJECT MANAGER, IRENA A 346.90 MIGRAINE HEADACHE 10/08/2010 WHITE DDS, DEBORAH J 305.1 NICOTINE DEPENDENCE 10/08/2010 WHITE DDS, DEBORAH J 346.90 MIGRAINE HEADACHE 10/08/2010 WHITE DDS, DEBORAH J 305.1 NICOTINE DEPENDENCE 10/08/2010 WHITE DDS, DEBORAH J 346.90 MIGRAINE HEADACHE 10/08/2010 MIGUELINA HAND, ARMEN R 305.1 NICOTINE DEPENDENCE 10/08/2010 MCINTYRE YAZAN, ARMEN R 346.90 MIGRAINE HEADACHE 10/08/2010 OMAR [...] EHSAN OSMEL 298.9 UNSPECIFIED PSYCHOSIS 10/16/2010 BUCHANAN BUSINESS ANALYST PROJECT MANAGER, EHSAN OSMEL 300.00 AN ANXIETY UNSPEC 10/16/2010 BUCHANAN BUSINESS ANALYST PROJECT MANAGER, EHSAN OSMEL 311 MO DEPRESS NOS 10/16/2010 BUCHANANNANCY FRANKBecki EHSAN OSMEL 298.9 UNSPECIFIED PSYCHOSIS 10/16/2010 BUCHANAN BUSINESS ANALYST PROJECT MANAGER, EHSAN OSMEL 300.00 AN ANXIETY UNSPEC 10/16/2010 BUCHANAN BUSINESS ANALYST PROJECT MANAGER, EHSAN OSMEL 311 MO DEPRESS NOS 10/16/2010 MERYL BUSINESS ANALYST PROJECT MANAGER, IRENA A 298.9 UNSPECIFIED PSYCHOSIS 10/16/2010 MERYL BUSINESS ANALYST PROJECT MANAGER, IRENA A 300.00 AN ANXIETY UNSPEC 10/16/2010 MERYL HAND IRENA A 311 MO DEPRESS NOS 10/16/2010 MERYL BUSINESS ANALYST PROJECT MANAGER, IRENA A 298.9 UNSPECIFIED PSYCHOSIS 10/16/2010 MERYL BUSINESS ANALYST PROJECT MANAGER, IRENA A 300.00 AN ANXIETY UNSPEC 10/16/2010 MERYL FRANKN, IRENA A 311 MO DEPRESS NOS 10/16/2010 WHITE DDS, DEBORAH J 298.9 UNSPECIFIED PSYCHOSIS 10/16/2010 WHITE DDS, DEBORAH J 300.00 AN ANXIETY UNSPEC 10/16/2010 WHITE DDS, DEBORAH J 311 MO DEPRESS NOS 10/16/2010 WHITE DDS, DEBORAH J 298.9 UNSPECIFIED PSYCHOSIS 10/16/2010 WHITE DDS, DEBORAH J 300.00 AN ANXIETY UNSPEC 10/16/2010 WHITE DDS, DEBORAH J 311 MO DEPRESS NOS 10/16/2010 MIGUELINA HAND ARMEN R 298.9 UNSPECIFIED PSYCHOSIS 10/16/2010 MIGUELINA HAND, ARMEN R 300.00 AN ANXIETY UNSPEC 10/16/2010 MIGUELINA HAND ARMEN R 311 MO DEPRESS NOS 10/16/2010 OMAR HAND RICHARD R 298.9 UNSPECIFIED PSYCHOSIS 10/16/2010 OMAR HAND RICHARD R 300.00 AN ANXIETY UNSPEC 10/16/2010 [...] BUCHANAN APRN 300.02 AN GEN ANXIETY 11/27/2010 MERYL HAND, IRENA A 296.90 MO MOOD DIS NOS 11/27/2010 MERYLCHRIS FRANKN, IRENA A 300.02 AN GEN ANXIETY 11/27/2010 MERYL HAND, IRENA A 296.90 MO MOOD DIS NOS [...] 296.90 MO MOOD DIS NOS 11/27/2010 MIGUELINA HAND ARMEN R 300.02 AN GEN ANXIETY 11/27/2010 [...] 12/05/2010 EHSAN BUCHANAN APRN 616.10 Vaginitis 12/05/2010 DEWAYNE HAND EHSAN OSMEL V25.01 Oral Contraceptives 12/05/2010 DEWAYNE HAND EHSAN OSMEL V72.31 Routine Pelvic Exam 12/05/2010 EHSAN BUCHANAN APRN V74.5 Visit For: Screening Exam Bact/spirochetal Venereal Disease 12/05/2010 EHSAN BUCHANAN APRN 616.10 Vaginitis 12/05/2010 EHSAN BUCHANAN APRN V25.01 Oral Contraceptives 12/05/2010 EHSAN BUCHANAN APRN V72.31 Routine Pelvic Exam 12/05/2010 EHSAN BUCHANAN APRN V74.5 Visit For: Screening Exam Bact/spirochetal Venereal Disease 12/05/2010 MERYLBecki HAND IRENA A 616.10 Vaginitis 12/05/2010 MERYLCHRIS HAND IRENA A V25.01 Oral Contraceptives 12/05/2010 MERYLBecki HAND IRENA A V72.31 Routine Pelvic Exam 12/05/2010 MERYLBecki HAND IRENA A V74.5 Visit For: Screening Exam Bact/spirochetal Venereal Disease 12/05/2010 MERYL HAND IRENA A 616.10 Vaginitis 12/05/2010 MERYLBecki HAND IRENA A V25.01 Oral Contraceptives 12/05/2010 MERYLBecki HAND IRENA A V72.31 Routine Pelvic Exam 12/05/2010 MERYLBecki HAND IRENA A V74.5 Visit For: Screening Exam Bact/spirochetal Venereal Disease 12/05/2010 WHITE DDS, DEBORAH J 616.10 Vaginitis 12/05/2010 WHITE DDS, DEBORAH J V25.01 Oral Contraceptives 12/05/2010 WHITE DDS, DEBORAH J V72.31 Routine Pelvic Exam 12/05/2010 WHITE DDS, DEBORAH J V74.5 Visit For: Screening Exam Bact/spirochetal Venereal Disease 12/05/2010 WHITE DDS, DEBORAH J 616.10 Vaginitis 12/05/2010 WHITE DDS, DEBORAH J V25.01 Oral Contraceptives 12/05/2010 WHITE DDS, DEBORAH J V72.31 Routine Pelvic Exam 12/05/2010 WHITE DDS, DEBORAH J V74.5 Visit For: Screening Exam Bact/spirochetal Venereal Disease 12/05/2010 ARMEN MCINTYRE APRN 616.10 Vaginitis 12/05/2010 MIGUELINA HAND, ARMEN R V25.01 Oral Contraceptives 12/05/2010 MIGUELINA HAND, ARMEN R V72.31 Routine Pelvic Exam 12/05/2010 MIGUELINA HAND ARMEN R V74.5 Visit For: Screening Exam Bact/spirochetal Venereal Disease 12/05/2010 OMAR BUSINESS ANALYST PROJECT MANAGER, RICHARD R 616.10 Vaginitis 12/05/2010 OMAR BUSINESS ANALYST PROJECT MANAGER, RICHARD R V25.01 Oral Contraceptives 12/05/2010 OMAR BUSINESS ANALYST PROJECT MANAGER, RICHARD R V72.31 Routine Pelvic Exam 12/05/2010 OMAR BUSINESS ANALYST PROJECT MANAGER, RICHARD R V74.5 Visit For: Screening Exam Bact/spirochetal Venereal Disease 12/05/2010 MAN BARRIENTOS, DAVID Finney 616.10 Vaginitis 12/05/2010 DAVID CONWAY PHD V25.01 Oral Contraceptives 12/05/2010 DAVID CONWAY PHD V72.31 Routine Pelvic Exam 12/05/2010 MAN BARRIENTOS, DAVID Finney V74.5 Visit For: Screening Exam Bact/spirochetal Venereal Disease 01/25/2011 Ot 648.93 01/25/2011 Ot [...] Reading Without Diagnosis Of Hypertension 02/24/2011 OMAR HAND, RICHARD R 796.2 Elevated Blood Pressure Reading Without Diagnosis Of Hypertension 02/24/2011 MAN BARRIENTOS, DAVID Finney 796.2 Elevated Blood Pressure Reading Without Diagnosis Of Hypertension 03/05/2011 785.1 Palpitations 03/05/2011 786.52 Chest Wall Pain 03/05/2011 YESSY CHINO MD 785.1 Palpitations 03/05/2011 YESSY CHINO MD 786.52 Chest Wall Pain 03/05/2011 BUCHANAN BUSINESS ANALYST PROJECT MANAGER, EHSAN BOLIVAR 785.1 Palpitations 03/05/2011 BUCHANAN BUSINESS ANALYST PROJECT MANAGER, EHSAN BOLIVAR 786.52 Chest Wall Pain 03/05/2011 BUCHANAN BUSINESS ANALYST PROJECT MANAGER, EHSAN BOLIVAR 785.1 Palpitations 03/05/2011 BUCHANAN BUSINESS ANALYST PROJECT MANAGER, EHSAN BOLIVAR 786.52 Chest Wall Pain 03/05/2011 MERYL BUSINESS ANALYST PROJECT MANAGER, IRENA A 785.1 Palpitations 03/05/2011 MERYL BUSINESS ANALYST PROJECT MANAGER, IRENA A 786.52 Chest Wall Pain 03/05/2011 MERYL BUSINESS ANALYST PROJECT MANAGER, IRENA A 785.1 Palpitations 03/05/2011 MERYL BUSINESS ANALYST PROJECT MANAGER, IRENA A 786.52 Chest Wall Pain 03/05/2011 WHITE DDS, DEBORAH J 785.1 Palpitations 03/05/2011 WHITE DDS, DEBORAH J 786.52 Chest Wall Pain 03/05/2011 WHITE DDS, DEBORAH J 785.1 Palpitations 03/05/2011 WHITE DDS, DEBORAH J 786.52 Chest Wall Pain 03/05/2011 MIGUELINA HAND, ARMEN R 785.1 Palpitations 03/05/2011 MIGUELINA HAND, ARMEN R 786.52 Chest Wall Pain 03/05/2011 OMAR HAND, RICHARD R 785.1 Palpitations 03/05/2011 OMAR HAND, RICHARD R 786.52 Chest Wall Pain 03/05/2011 MAN BARRIENTOS, DAVID Finney 785.1 Palpitations 03/05/2011 MAN BARRIENTOS, DAVID Finney 786.52 Chest Wall Pain 08/24/2011 V22.1 , NORMAL OTHER 08/24/2011 YESSY CHINO MD V22.1 , NORMAL OTHER 08/24/2011 BUCHANAN BUSINESS ANALYST PROJECT MANAGER, EHSAN BOLIVAR V22.1 , NORMAL OTHER 08/24/2011 BUCHANAN BUSINESS ANALYST PROJECT MANAGER, EHSAN BOLIVAR V22.1 , NORMAL OTHER 08/24/2011 MERYL BUSINESS ANALYST PROJECT MANAGER, IRENA A V22.1 , NORMAL OTHER 08/24/2011 MERYL BUSINESS ANALYST PROJECT MANAGER, IRENA A V22.1 , NORMAL OTHER 08/24/2011 WHITE DDS, DEBORAH J V22.1 , NORMAL OTHER 08/24/2011 WHITE DDS, DEBORAH J V22.1 , NORMAL OTHER 08/24/2011 MIGUELINA BUSINESS ANALYST PROJECT MANAGER, ARMEN R V22.1 , NORMAL OTHER 08/24/2011 OMAR BUSINESS ANALYST PROJECT MANAGER, RICHARD R V22.1 , NORMAL OTHER 08/24/2011 MAN PHD, DAVID Finney V22.1 , NORMAL OTHER 09/02/2011 789.00 Abdominal Pain Unspecified Site 09/02/2011 LULÚ IBRAHIM, YESSY 789.00 Abdominal Pain Unspecified Site 09/02/2011 DEWAYNE BUSINESS ANALYST PROJECT MANAGER, EHSAN BOLIVAR 789.00 Abdominal Pain Unspecified Site 09/02/2011 BUCHANAN BUSINESS ANALYST PROJECT MANAGER, EHSAN SANCHEZH 789.00 Abdominal Pain Unspecified Site 09/02/2011 MERYL BUSINESS ANALYST PROJECT MANAGER, IRENA A 789.00 Abdominal Pain Unspecified Site 09/02/2011 MERYL BUSINESS ANALYST PROJECT MANAGER, IRENA A 789.00 Abdominal Pain Unspecified Site 09/02/2011 ANNETTE DDS, DEBORAH J 789.00 Abdominal Pain Unspecified Site 09/02/2011 ANNETTE DDS, DEBORAH J 789.00 Abdominal Pain Unspecified Site 09/02/2011 MIGUELINA HAND, ARMEN R 789.00 Abdominal Pain Unspecified Site 09/02/2011 OMAR HAND, RICHARD R 789.00 Abdominal Pain Unspecified Site 09/02/2011 MAN PHD, DAVID Finney 789.00 Abdominal Pain Unspecified Site 09/07/2011 Ot 599.0 URIN TRACT INFECTION NOS 09/07/2011 Ot 646.63 INFECTION -ANTEPARTUM 10/12/2011 Ot 465.9 ACUTE URI NOS 10/12/2011 Ot 519.11 ACUTE BRONCHOSPASM 10/12/2011 Ot 786.2 COUGH 10/15/2011 692.9 Dermatitis Contact Unspecified 10/15/2011 YESSY CHINO MD 692.9 Dermatitis Contact Unspecified 10/15/2011 BUCHANANEHSAN THORNTON APRN 692.9 Dermatitis Contact Unspecified 10/15/2011 BUCHANAN BUSINESS ANALYST PROJECT MANAGEREHSAN Connell 692.9 Dermatitis Contact Unspecified 10/15/2011 MERYL BUSINESS ANALYST PROJECT MANAGER, IRENA A 692.9 Dermatitis Contact Unspecified 10/15/2011 MERYL BUSINESS ANALYST PROJECT MANAGER, IRENA A 692.9 Dermatitis Contact Unspecified 10/15/2011 WHITE DDS, DEBORAH J 692.9 Dermatitis Contact Unspecified 10/15/2011 WHITE DDS, DEBORAH J 692.9 Dermatitis Contact Unspecified 10/15/2011 ARMEN MCINTYRE APRN R 692.9 Dermatitis Contact Unspecified 10/15/2011 ILIA NELSON APRNINA R 692.9 Dermatitis Contact Unspecified 10/15/2011 MAN [...] BUCHANAN APRN 599.0 Urinary Tract Infection 10/21/2011 BUCHANAN BUSINESS ANALYST PROJECT MANAGEREHSAN Connell 616.10 Vaginitis Vulvovaginitis Unspecified 10/21/2011 MERYL BUSINESS ANALYST PROJECT MANAGER, IRENA A 599.0 Urinary Tract Infection 10/21/2011 MERYL BUSINESS ANALYST PROJECT MANAGER, IRENA A 616.10 Vaginitis Vulvovaginitis Unspecified 10/21/2011 MERYL BUSINESS ANALYST PROJECT MANAGER, IRENA A 599.0 Urinary Tract Infection 10/21/2011 MERYL BUSINESS ANALYST PROJECT MANAGER, IRENA A 616.10 Vaginitis Vulvovaginitis Unspecified 10/21/2011 WHITE DDS, DEBORAH J 599.0 Urinary Tract Infection 10/21/2011 WHITE DDS, DEBORAH J 616.10 Vaginitis Vulvovaginitis Unspecified 10/21/2011 WHITE DDS, DEBORAH J 599.0 Urinary Tract Infection 10/21/2011 WHITE DDS, DEBORAH J 616.10 Vaginitis Vulvovaginitis Unspecified 10/21/2011 MIGUELINA HAND, ARMEN R 599.0 Urinary Tract Infection 10/21/2011 MIGUELINA HAND, ARMEN R 616.10 Vaginitis Vulvovaginitis Unspecified 10/21/2011 OMAR HAND, RICHARD R 599.0 Urinary Tract Infection 10/21/2011 OMAR FRANKN, RICHARD R 616.10 Vaginitis Vulvovaginitis Unspecified 10/21/2011 MAN PHD, DAVID Finney 599.0 Urinary Tract Infection 10/21/2011 MAN BARRIENTOS, DAVID Finney 616.10 Vaginitis Vulvovaginitis Unspecified 11/26/2011 Ot 648.93 OTH CURR COND-ANTEPARTUM 11/26/2011 Ot 789.00 ABDOMINAL PAIN, UNSPECIFIED SITE 12/12/2011 296.32 MO DEPRESSIVE RECURRENT MODERATE 12/12/2011 YESSY CHINO MD 296.32 MO DEPRESSIVE RECURRENT MODERATE 12/12/2011 DEWAYNE HAND EHSAN BOLIVAR 296.32 MO DEPRESSIVE RECURRENT MODERATE 12/12/2011 DEWAYNE HAND EHSAN BOLIVAR 296.32 MO DEPRESSIVE RECURRENT MODERATE 12/12/2011 IRENA SHETH APRN A 296.32 MO DEPRESSIVE RECURRENT MODERATE 12/12/2011 KOREY SHETH APRNIDI A 296.32 MO DEPRESSIVE RECURRENT MODERATE 12/12/2011 ANNETTE DDS, DEBORAH J 296.32 MO DEPRESSIVE RECURRENT MODERATE 12/12/2011 ANNETTE DDS, DEBORAH J 296.32 MO DEPRESSIVE RECURRENT MODERATE 12/12/2011 MIGUELINA HAND ARMEN R 296.32 MO DEPRESSIVE RECURRENT MODERATE 12/12/2011 [...] HAND, IRENA A 787.91 Diarrhea 12/14/2011 MERYL HAND, IRENA A 787.03 Vomiting Alone 12/14/2011 MERYL HAND, IRENA A 787.91 Diarrhea 12/14/2011 WHITE DDS, DEBORAH J 787.03 Vomiting Alone 12/14/2011 WHITE DDS, DEBORAH J 787.91 Diarrhea 12/14/2011 WHITE DDS, DEBORAH J 787.03 Vomiting Alone 12/14/2011 WHITE DDS, DEBORAH J 787.91 Diarrhea 12/14/2011 MIGUELINA HAND ARMEN R 787.03 Vomiting Alone 12/14/2011 MIGUELINA HAND ARMEN R 787.91 Diarrhea 12/14/2011 OMAR HAND RICHARD [...] URIN TRACT INFECTION NOS 01/13/2012 Ot 646.63 INFECTION -ANTEPARTUM 02/01/2012 Ot 623.5 NONINFECT VAG LEUKORRHEA 02/01/2012 Ot 644.13 THREAT LABOR NEC-ANTEPAR 02/01/2012 Ot 654.73 ABNORM VAGINA-ANTEPARTUM 02/05/2012 Ot 285.9 ANEMIA NOS 02/05/2012 Ot 295.90 SCHIZOPHRENIA NOS-UNSPEC 02/05/2012 Ot 311 DEPRESSIVE DISORDER NEC 02/05/2012 Ot 622.11 MILD DYSPLASIA OF CERVIX 02/05/2012 Ot 648.22 ANEMIA- DELIVERED W P/P 02/05/2012 Ot 648.41 MENTAL DISORDER-DELIVER 02/05/2012 Ot 649.01 TOBACCO USE DISORDER COMP PREG/CHILDBIRT 02/05/2012 Ot 654.61 ABN CERVIX NEC-DELIVERED 02/05/2012 Ot 663.31 CORD ENTANGLE NEC-DELIV 02/05/2012 Ot 664.21 DEL W 3 DEG LACERAT-DEL 02/05/2012 Ot V27.0 DELIVER- SINGLE LIVEBORN 06/09/2012 Ot 521.00 UNSPEC DENTAL CARIES 06/09/2012 Ot 525.9 DENTAL DISORDER NOS 09/01/2012 V72.41 TEST NEGATIVE RESULT 09/01/2012 YESSY CHINO MD V72.41 TEST NEGATIVE RESULT 09/01/2012 EHSAN BUCHANAN APRN V72.41 TEST NEGATIVE RESULT 09/01/2012 EHSAN BUCHANAN APRN V72.41 TEST NEGATIVE RESULT 09/01/2012 IRENA SHETH APRN A V72.41 TEST NEGATIVE RESULT 09/01/2012 IRENA SHETH APRN A V72.41 TEST NEGATIVE RESULT 09/01/2012 ANNETTE DDSDEBORAH J V72.41 TEST NEGATIVE RESULT 09/01/2012 ANNETTE DDSDEBORAH J V72.41 TEST NEGATIVE RESULT 09/01/2012 ARMEN [...] EHSAN BUCHANAN APRN 780.79 FATIGUE 10/05/2012 MERYL BUSINESS ANALYST PROJECT MANAGER, IRENA A 611.72 breast lump 10/05/2012 MERYL HAND, IRENA A 780.79 FATIGUE 10/05/2012 MERYL HAND, IRENA A 611.72 breast lump 10/05/2012 MERYL HAND, IRENA A 780.79 FATIGUE 10/05/2012 WHITE DDS, DEBORAH J 611.72 breast lump 10/05/2012 WHITE DDS, DEBORAH J 780.79 FATIGUE 10/05/2012 WHITE DDS, DEBORAH J 611.72 breast lump 10/05/2012 WHITE DDS, DEBORAH J 780.79 FATIGUE 10/05/2012 MIGUELINA FRANKN, ARMEN R 611.72 breast lump 10/05/2012 MCINTYRE BUSINESS ANALYST PROJECT MANAGER, ARMEN R 780.79 FATIGUE 10/05/2012 OMAR BUSINESS ANALYST PROJECT MANAGER, RICHARD R 611.72 breast lump 10/05/2012 OMAR BUSINESS ANALYST PROJECT MANAGER, RICHARD R 780.79 FATIGUE 10/05/2012 MAN PHD, [...] J V23.9 , HIGH-RISK (UNSPEC) 11/22/2013 MIGUELINA BUSINESS ANALYST PROJECT MANAGER, ARMEN R 646.60 COMPL OF - UTI 11/22/2013 MIGUELINA BUSINESS ANALYST PROJECT MANAGER, ARMEN R 648.30 COMPL OF - DRUG DEPENDENCE 11/22/2013 MIGUELINA BUSINESS ANALYST PROJECT MANAGER, ARMEN R 649.00 COMPL OF - TOBACCO USE 11/22/2013 NATALIE MCINTYRE APRNRICIA R V23.9 , HIGH-RISK (UNSPEC) 11/22/2013 OMAR HAND RICHARD R 646.60 COMPL OF - UTI 11/22/2013 OMAR FRANKN, RICHARD R 648.30 COMPL OF - DRUG DEPENDENCE 11/22/2013 OMAR FRANKN, RICHARD R 649.00 COMPL OF - TOBACCO USE 11/22/2013 OMAR HAND RICHARD R V23.9 , HIGH-RISK (UNSPEC) 11/22/2013 MAN PHD, DAVID Finney 646.60 COMPL OF - UTI 11/22/2013 MAN PHD, DAVID Finney 648.30 COMPL OF - DRUG DEPENDENCE 11/22/2013 MAN PHD, DAVID Finney 649.00 COMPL OF - TOBACCO USE 11/22/2013 MAN BARRIENTOS, DAVID Finney V23.9 , HIGH-RISK (UNSPEC) 02/14/2014 WILLIAM IBRAHIM, RIMMA Sorto Ot 525.9 DENTAL DISORDER NOS 02/14/2014 WILLIAM IBRAHIM, RIMMA Sorto Ot 648.93 OTH CURR COND-ANTEPARTUM 02/14/2014 RIMMA THOMAS MD Ot 789.09 ABDOMINAL PAIN, OTHER SPECIFIED SITE 03/05/2014 FRANKLIN IBRAHIM, JACKI Byers Ot 644.13 THREAT LABOR NEC-ANTEPAR 04/09/2014 JACKI REID MD Ot 521.00 UNSPEC DENTAL CARIES 04/09/2014 FRANKLIN IBRAHIM, JACKI Byers Ot 648.93 OTH CURR COND-ANTEPARTUM 04/09/2014 JACQUELINE [...] 611.72 10/30/2014 Ot V16.3 10/30/2014 LUPE ANTONY BUSINESS ANALYST PROJECT MANAGER Ot 599.0 URIN TRACT INFECTION NOS 10/30/2014 LUPE ANTONY BUSINESS ANALYST PROJECT MANAGER Ot 620.2 OVARIAN CYST NEC/NOS 10/30/2014 LUPE ANTONY BUSINESS ANALYST PROJECT MANAGER Ot 626.4 IRREGULAR MENSTRUATION 10/30/2014 LUPE ANTONY BUSINESS ANALYST PROJECT MANAGER Ot 789.04 ABDOMINAL PAIN, LEFT LOWER QUADRANT 10/31/2014 OMAR BUSINESS ANALYST PROJECT MANAGER, RICHARD R 787.91 DIARRHEA 10/31/2014 OMAR BUSINESS ANALYST PROJECT MANAGER, RICHARD R 789.00 ABDOMINAL PAIN UNSPECIFIED SITE [...] LEONILA IBRAHIM, SANDOR Garcia Ot V57.1 04/23/2015 SANDOR KEEN MD Ot 724.2 04/23/2015 LEONILA IBRAHIM, SANDOR Garcia Ot V57.1 05/01/2015 LEONILA IBRAHIM, SANDOR aGrcia Ot 724.2 05/01/2015 LEONILA IBRAHIM, SANDOR Garcia Ot V57.1 05/01/2015 SANDOR KEEN MD Ot 724.2 05/01/2015 SANDOR KEEN MD Ot V57.1 05/01/2015 LEONILA IBRAHIM, SANDOR Garcia Ot 724.2 05/01/2015 LEONILA IBRAHIM, SANDOR Garcia Ot V57.1 05/07/2015 LEONILA IBRAHIM, SANDOR Garcia Ot 724.2 LUMBAGO 05/07/2015 LEONILA IBRAHIM, SANDOR Garcia Ot V57.1 PHYSICAL THERAPY NEC 06/03/2015 NEYMAR IBRAHIM, DEYSI Aldridge Ot 276.51 06/03/2015 DEYSI BLACKMON MD Ot 276.8 06/03/2015 DEYSI BLACKMON MD Ot 305.70 06/03/2015 DEYSI BLACKMON MD Ot 573.3 06/03/2015 DEYSI BLACKMON MD Ot 599.0 06/03/2015 EDYSI BLACKMON MD Ot 646.63 06/03/2015 DEYSI BLACKMON [...] 06/05/2015 DEYSI BLACKMON MD, Ot 648.93 06/05/2015 DEYSI BLACKMON MD Ot 649.03 TOBACCO USE DISOR COMP PREG/CHILDBIRTH/P 06/05/2015 DEYSI BLACKMON MD Ot 659.33 SEPTICEM IN LABOR-ANTEPA 06/05/2015 DEYSI BLACKMON MD Ot 995.91 SEPSIS 06/08/2015 WILLIAM IBRAHIM, RIMMA Sorto Ot 599.0 URIN TRACT INFECTION NOS 06/08/2015 RIMMA THOMAS MD Ot 646.63 INFECTION-ANTEPARTUM 06/08/2015 RIMMA THOMAS MD Ot 789.09 ABDOMINAL PAIN, OTHER SPECIFIED SITE 07/02/2015 Ot V22.1 07/02/2015 Ot V28.89 07/02/2015 Ot 611.71 07/02/2015 Ot 611.72 07/02/2015 Ot V16.3 07/02/2015 LEONILA IBRAHIM, SANDOR Garcia Ot 724.2 07/09/2015 IRENA SHETH BUSINESS ANALYST PROJECT MANAGER Ot V23.9 07/09/2015 IRENA SHETH BUSINESS ANALYST PROJECT MANAGER Ot V28.81 07/15/2015 IRENA SHETH BUSINESS ANALYST PROJECT MANAGER Ot V23.9 07/15/2015 IRENA SHETH BUSINESS ANALYST PROJECT MANAGER Ot V28.81 08/05/2015 JACQUELINE IBRAHIM, DANAE Berg Ot R42 DIZZINESS AND GIDDINESS 08/06/2015 FABY GONZALEZ MD Ot V23.9 08/06/2015 FABY GONZALEZ MD Ot V28.81 08/13/2015 FABY GONZALEZ MD Ot V23.9 08/13/2015 FABY GOZNALEZ MD Ot V28.81 10/27/2015 FABY GONZALEZ MD Ot O23.43 UNSP INFCT OF URINARY TRACT IN 10/27/2015 FABY GONZALEZ MD Ot O47.03 FALSE LABOR BEFORE 37 COMPLETED WEEKS OF 10/27/2015 FABY GONZALEZ MD Ot Z3A.36 36 WEEKS GESTATION OF 11/20/2015 Ot V22.1 11/20/2015 Ot V28.89 11/20/2015 Ot 611.71 11/20/2015 Ot 611.72 11/20/2015 Ot V16.3 11/20/2015 LEONILA IBRAHIM, SANDOR L Ot 724.2 11/20/2015 IRENA SHETH APRN Ot [...] MASS IN BREAST 02/03/2017 Ot V16.3 FAMILY HX- BREAST MALIG 02/03/2017 LEONILA IBRAHIM, SANDOR L Ot 724.2 LUMBAGO 02/03/2017 IRENA SHETH APRN [...] MASS IN BREAST 02/03/2017 Ot V16.3 FAMILY HX- BREAST MALIG 02/03/2017 LEONILA IBRAHIM, SANDOR Garcia Ot 724.2 LUMBAGO 02/03/2017 IRENA SHETH APRN Ot V23.9 SUPRV HIGH-RISK PREG NOS 02/03/2017 IRENA SHETH BUSINESS ANALYST PROJECT MANAGER Ot V28.81 ENCOUNTER FOR ANATOMIC SURVEY 02/03/2017 [...] K64.1 SECOND DEGREE HEMORRHOIDS 02/16/2017 ANGLE GARCIA MD Ot F32.9 MAJOR DEPRESSIVE DISORDER, SINGLE EPISOD 02/16/2017 ANGLE GARCIA MD, Ot F41.9 ANXIETY DISORDER, UNSPECIFIED 02/16/2017 ANGLE GARCIA MD Ot I10 ESSENTIAL (PRIMARY) HYPERTENSION 02/16/2017 ANGLE GARCIA MD Ot K62.9 DISEASE OF ANUS AND RECTUM, UNSPECIFIED 02/16/2017 ANGLE GARCIA MD Ot K64.1 SECOND DEGREE HEMORRHOIDS 03/16/2017 Ot V28.89 OTHER SPECIFIED SCREENING 03/16/2017 Ot 611.71 MASTODYNIA 03/16/2017 Ot 611.72 LUMP OR MASS IN BREAST 03/16/2017 Ot V16.3 FAMILY HX- BREAST MALIG 03/16/2017 LEONILA IBRAHIM, SANDOR Garcia Ot 724.2 LUMBAGO 03/16/2017 IRENA SHETH APRN Ot V23.9 SUPRV HIGH-RISK PREG NOS 03/16/2017 IRENA SHETH BUSINESS ANALYST PROJECT MANAGER Ot V28.81 ENCOUNTER FOR ANATOMIC SURVEY 03/16/2017 FABY GONZALEZ MD Ot V23.9 SUPRV HIGH-RISK PREG NOS 03/16/2017 FABY GONZALEZ MD Ot V28.81 ENCOUNTER FOR ANATOMIC SURVEY 03/16/2017 ANGLE GARCIA MD Ot F32.9 MAJOR DEPRESSIVE DISORDER, SINGLE EPISOD 03/16/2017 ANGLE GARCIA MD, Ot F41.9 ANXIETY DISORDER, UNSPECIFIED 03/16/2017 ANGLE GARCIA MD Ot I10 ESSENTIAL (PRIMARY) HYPERTENSION 03/16/2017 ANGLE GARCIA MD Ot K62.9 DISEASE OF ANUS AND RECTUM, UNSPECIFIED 03/16/2017 ANGLE GARCIA MD Ot K64.1 SECOND DEGREE HEMORRHOIDS 03/16/2017 DANAE PHILLIPS MD Ot K02.9 DENTAL CARIES, UNSPECIFIED 03/16/2017 DANAE PHILLIPS MD Ot K05.10 CHRONIC GINGIVITIS, PLAQUE INDUCED 03/16/2017 DANAE PHILLIPS MD Ot R07.89 OTHER CHEST PAIN 03/16/2017 DANAE PHILLIPS MD Ot R11.2 NAUSEA WITH VOMITING, UNSPECIFIED 03/16/2017 DANAE PHILLIPS MD Ot R42 DIZZINESS AND GIDDINESS 03/17/2017 DANAE PHILLIPS MD Ot K02.9 DENTAL CARIES, UNSPECIFIED 03/17/2017 DANAE PHILLIPS MD Ot K05.10 CHRONIC GINGIVITIS, PLAQUE INDUCED 03/17/2017 DANAE PHILLIPS MD Ot R07.89 OTHER CHEST PAIN 03/17/2017 DANAE PHILLIPS MD Ot R11.2 NAUSEA WITH VOMITING, UNSPECIFIED 03/17/2017 JACQUELINE IBRAHIM, DANAE Berg Ot R42 DIZZINESS AND GIDDINESS Procedures Code Description Performed By Performed On 96.49 OTHER INSTILLATION 02/02/2012 75.62 REPAIR OB LAC RECT/ANUS 02/03/2012 92567 URINE TEST (IN- HOUSE) 09/01/2012 79280 PSYCH IND W/MED CK 20 10/05/2012 79723 US OB - EARLY <14 WEEKS 11/22/2013 68215 TEST, URINE (IN- HOUSE) 11/22/2013 78078 UA W/ CULTURE IF INDICATED 11/22/2013 37085 URINE DRUG SCREEN (IN-HOUSE ) 11/22/2013 36756 CULTURE URINE 11/23/2013 73.59 MANUAL ASSIST DELIV NEC 07/15/2014 48912 TEST, URINE (IN- HOUSE) 10/19/2014 64384 OXIMETRY 10/19/2014 20002 AMERITOX 10/31/2014 39221 PSYCH DIAGNOSTIC EVALUATION 11/09/2014 [id number] DELIVERY OF PRODUCTS OF CONCEPTION, EXTE 11/20/2015 [id number] INTRODUCTION OF OTH HORMONE INTO PERIPH 11/20/2015 Results Test Result Range Urine beta human chorionic gonadotropin (hCG) measurement - 02/03/17 09:00 Urine beta human chorionic gonadotropin (hCG) measurement NEGATIVE NEGATIVE Complete blood count (CBC) with automated white blood cell (WBC) differential - 03/16/17 17:28 Blood leukocytes automated count (number/volume) 7.2 10*3/uL 4.3-11.0 Blood erythrocytes automated count (number/volume) 4.84 10*6/uL 4.35-5.85 Venous blood hemoglobin measurement (mass/volume) 12.6 g/dL 11.5-16.0 Blood hematocrit (volume fraction) 39 % 35-52 Automated erythrocyte mean corpuscular volume 80 [foz_us] 80-99 Automated erythrocyte mean corpuscular hemoglobin (mass per erythrocyte) 26 pg 25-34 Automated erythrocyte mean corpuscular hemoglobin concentration measurement ( mass/volume) 33 g/dL 32-36 Automated erythrocyte distribution width ratio 14.6 % 10.0-14.5 Automated blood platelet count (count/volume) 356 10*3/uL 130-400 Automated blood platelet mean volume measurement 10.2 [foz_us] 7.4-10.4 Automated blood neutrophils/100 leukocytes 48 % 42-75 Automated blood lymphocytes/100 leukocytes 41 % 12-44 Blood monocytes/100 leukocytes 9 % 0-12 Automated blood eosinophils/100 leukocytes 2 % 0-10 Automated blood basophils/100 leukocytes 0 % 0-10 Blood neutrophils automated count (number/volume) 3.5 10*3 1.8-7.8 Blood lymphocytes automated count (number/volume) 2.9 10*3 1.0-4.0 Blood monocytes automated count (number/volume) 0.6 10*3 0.0-1.0 Automated eosinophil count 0.2 10*3/uL 0.0-0.3 Automated blood basophil count (count/volume) 0.0 10*3/uL 0.0-0.1 Serum or plasma choriogonadotropin ( test) detection - 03/16/17 17:28 Serum or plasma choriogonadotropin ( test) detection NEGATIVE NEGATIVE Comprehensive metabolic panel - 03/16/17 17:28 Serum or plasma sodium measurement (moles/volume) 139 mmol/L 135-145 Serum or plasma potassium measurement (moles/volume) 3.7 mmol/L 3.6-5.0 Serum or plasma chloride measurement (moles/volume) 112 mmol/L 98-107 Carbon dioxide 17 mmol/L 21-32 Serum or plasma anion gap determination (moles/volume) 10 mmol/L 5-14 Serum or plasma urea nitrogen measurement (mass/volume) 8 mg/dL 7-18 Serum or plasma creatinine measurement (mass/volume) 0.87 mg/dL 0.60-1.30 Serum or plasma urea nitrogen/creatinine mass ratio 9 NRG Serum or plasma creatinine measurement with calculation of estimated glomerular filtration rate > NRG Serum or plasma glucose measurement (mass/volume) 102 mg/dL 70-105 Serum or plasma calcium measurement (mass/volume) 8.6 mg/dL 8.5-10.1 Serum or plasma total bilirubin measurement (mass/volume) 0.7 mg/dL 0.1-1.0 Serum or plasma alkaline phosphatase measurement (enzymatic activity/volume) 106 U/L 40-136 Serum or plasma aspartate aminotransferase measurement (enzymatic activity/ volume) 21 U/L 5-34 Serum or plasma alanine aminotransferase measurement (enzymatic activity/volume ) 19 U/L 0-55 Serum or plasma protein measurement (mass/volume) 6.9 g/dL 6.4-8.2 Serum or plasma albumin measurement (mass/volume) 4.0 g/dL 3.2-4.5 Magnesium - 03/16/17 17:28 Magnesium 2.3 mg/dL 1.8-2.4 Encounters ACCT No. Visit Date/Time Discharge Status Pt. Type Provider Facility Loc./Unit Complaint [id number] 11/09/2014 14:55:00 11/09/2014 23:59:59 CLS Outpatient MAN BARRIENTOS, DAVID Finney [id number] 10/31/2014 13:40:00 10/31/2014 23:59:59 CLS Outpatient RICHARD NELSON APRN [id number] 10/19/2014 14:19:00 10/19/2014 23:59:59 CLS Outpatient ARMEN MCINTYRE APRN [id number] 04/09/2014 13:50:00 04/09/2014 23:59:59 CLS Outpatient DEBORAH BRYANT DDS [id number] 02/16/2014 09:59:00 02/16/2014 23:59:59 CLS Outpatient DEBORAH BRYANT DDS [id number] 11/22/2013 08:23:00 11/22/2013 23:59:59 CLS Outpatient IRENA SHETH APRN [id number] 11/22/2013 08:23:00 11/22/2013 23:59:59 CLS Outpatient IRENA SHETH APRN [id number] 08/30/2013 00:00:00 08/30/2013 23:59:59 CLS Outpatient DEWAYNE HAND EHSAN OSMEL [id number] 06/09/2013 10:04:00 06/09/2013 23:59:59 CLS Outpatient DEWAYNE HAND EHSAN OSMEL [id number] 10/05/2012 15:02:00 10/05/2012 23:59:59 CLS Outpatient LULÚ IBRAHIM, YESSY [id number] 09/01/2012 10:39:00 09/01/2012 23:59:59 CLS Outpatient [id number] 03/16/2017 16:56:00 03/16/2017 19:03:00 DIS Emergency DANAE PHILLIPS MD [facility] ER VOMITING/DIZZINESS/CP/ DENTAL PAIN [id number] 02/03/2017 08:48:00 02/03/2017 23:59:59 CLS Outpatient ANGLE GARCIA MD [facility] ENDO POSITIVE OCCULT BLOOD; DIARRHEA [id number] 02/01/2017 05:39:00 02/01/2017 14:26:00 DIS Outpatient ANGLE GARCIA MD [facility] PREOP POSITIVE OCCULT BLOOD; DIARRHEA [id number] 11/20/2015 06:08:00 11/22/2015 12:05:00 DIS Inpatient FABY GONZALEZ MD [facility] LDRP INDUCTION [id number] 10/27/2015 19:37:00 10/27/2015 22:36:00 DIS Outpatient FABY GONZALEZ MD [facility] WSo CONTRACTIONS [id number] 08/05/2015 11:40:00 08/05/2015 13:28:00 DIS Emergency DANAE PHILILPS MD [facility] ER DIZZINESS/SOA 24 WKS PREG [id number] 07/30/2015 15:20:00 07/30/2015 23:59:59 CLS Outpatient FABY GONZALEZ MD [facility] RAD FOLLOW POOR VISUALIZATION OF HEART AND SPINE [id number] 07/02/2015 12:48:00 07/02/2015 23:59:59 CLS Outpatient IRNEA SHETH APRN [facility] RAD SURVEY, LATE CARE [id number] 06/08/2015 01:48:00 06/08/2015 02:38:00 DIS Emergency RIMMA THOMAS MD [facility] ER UPPER ABD PAIN,POSS SEPSIS [id number] 06/02/2015 03:41:00 06/05/2015 16:35:00 DIS Inpatient NEYMAR IBRAHIM, DEYSI Aldridge [facility] 4TH HYPOKALEMIA,N/V,ABD PAIN, ACUTE HEPATITIS, [id number] 04/29/2015 09:16:00 05/07/2015 13:55:00 DIS Outpatient SANDOR KEEN MD [facility] REHAB CHRONIC LOW BACK PAIN [id number] 11/23/2014 13:57:00 11/23/2014 23:59:59 CLS Preadmit SANDOR KEEN MD [facility] REHAB [id number] 11/21/2014 10:26:00 11/21/2014 23:59:59 CLS Outpatient SANDOR KEEN MD [facility] RAD CHRONIC LBP [id number] 11/01/2014 20:54:00 11/01/2014 21:24:00 DIS Emergency RIMMA THOMAS MD [facility] ER OVERDOSE [id number] 10/30/2014 19:58:00 10/30/2014 22:32:00 DIS Emergency LUPE ANTONY APRN [facility] ER HIGH BP;DIZZINESS;DIARRHEA ;BLOODY STOOL;WEIGHT LOS [id number] 07/15/2014 13:14:00 07/17/2014 13:55:00 DIS Inpatient TANO GRANDA DO [facility] LDRP LABOR [id number] 06/30/2014 18:18:00 07/01/2014 09:17:00 [id number]/19/2014 12:15:00 06/19/2014 14:05:00 DIS [facility] [id number] 06/10/2014 19:31:00 06/10/2014 22:45:00 DIS Outpatient SK[facility] ANDERSON DO [facility] FALL [id number] 05/24/2014 14:20:00 05/24/2014 15:45:00 DIS Outpatient JACKI REID MD [facility] C/O ABD CRAMPING [id number] 04/09/2014 03:57:00 04/09/2014 04:34:00 DIS Emergency DANAE PHILLIPS MD [facility] ER DENTAL PAIN [id number] 04/09/2014 03:26:00 04/09/2014 03:53:00 DIS Outpatient JACKI REID MD [facility] DENTAL PAIN [id number] 03/05/2014 01:34:00 03/05/2014 10:10:00 DIS Outpatient JACKI REID MD [facility] WSo CTXS;ABD PAIN [id number] 02/14/2014 19:49:00 02/14/2014 21:10:00 DIS Emergency RIMMA THOMAS MD [facility] ER ABD PAIN [id number] 10/30/2014 19:57:00 Document Registration [id number] 10/30/2014 19:57:00 Document Registration [id number] 10/30/2014 19:57:00 Document Registration [id number] 11/02/2012 10:50:00 Document Registration [id number] 06/09/2012 19:52:00 Document Registration [id number] 02/02/2012 16:38:00 Document Registration [id number] 01/31/2012 21:13:00 Document Registration [id number] 01/13/2012 19:41:00 Document Registration [id number] 12/29/2011 19:17:00 Document Registration [id number] 12/14/2011 16:34:00 Document Registration [id number] 11/25/2011 22:14:00 Document Registration [id number] 11/20/2011 12:40:00 Document Registration [id number] 10/12/2011 18:41:00 Document Registration [id number] 09/07/2011 13:55:00 Document Registration [id number] 08/28/2011 12:37:00 Document Registration [id number] 01/25/2011 22:53:00 Document Registration [id number] 10/17/2010 20:56:00 Document Registration [id number] 08/29/2010 19:57:00 Document Registration [id number] 12/12/2009 12:29:00 Document Registration [id number] 11/22/2009 22:35:00 Document Registration [id number] 11/19/2009 23:30:00 Document Registration [id number] 10/16/2009 09:46:00 Document Registration [id number] 07/30/2009 12:35:00 Document Registration
[2017-10-31] MEDS ORDERED: VILA20TA PO (19:05)
[2017-10-31] MEDS ORDERED: HYDR-3584 PO (19:05)
[2017-10-31] MEDS ORDERED: TIZA4TAB3 PO (19:05)
--- NOTE | 2017-10-31 19:22 | ED General ---
General Chief Complaint: Cough/Cold/Flu Symptoms Stated Complaint: CONGESTION/COUGH/CP/DIZZINESS Nursing Triage Note: Pt c/o cough and fever x4 days and dizziness and CP starting today. Pt states pain in chest is worse w/ movement. Nursing Sepsis Screen: Possible Sepsis Risk Source of Information: Patient Exam Limitations: No Limitations History of Present Illness Time Seen by Provider: 19:22 Initial Comments To ER with a four-day history of nonproductive cough, dizziness, chest pain, body aches, sore throat. Timing/Duration: 3-4 Days Severity: Moderate Associated Systoms: Cough Allergies and Home Medications Allergies Coded Allergies: naproxen (Unverified Allergy, Severe, 09/14/08) Home Medications Hydroxyzine HCl 10 Mg Tablet, 10 MG PO DAILY, (Reported) Tizanidine HCl 4 Mg Tablet, 8 MG PO HS, (Reported) Vilazodone Hydrochloride 20 Mg Tablet, 20 MG PO HS, (Reported) Constitutional: see HPI, fever EENTM: see HPI Respiratory: see HPI, cough Cardiovascular: no symptoms reported Genitourinary: no symptoms reported Musculoskeletal: no symptoms reported Skin: no symptoms reported Psychiatric/Neurological: No Symptoms Reported Past Tsjzdml-Bewphg-Lmpptt Hx Patient Social History Alcohol Use: Denies Use Recreational Drug Use: No Smoking Status: Former Smoker Former Smoker, Quit: Feb 02, 2016 2nd Hand Smoke Exposure: No Recent Foreign Travel: No Contact w/Someone Who Travel: No Recent Infectious Disease Expo: No Recent Hopitalizations: No Immunizations Up To Date Tetanus Booster (TDap): Unknown PED Vaccines UTD: Yes Date of Influenza Vaccine: Aug 27, 2016 Seasonal Allergies Seasonal Allergies: No Surgeries History of Surgeries: Yes (GALL BLADDER & TONSILS REMOVED) Surgeries: Adenoidectomy, Gallbladder, Tonsillectomy Respiratory History of Respiratory Disorde: No Cardiovascular History of Cardiac Disorders: No Neurological History of Neurological Disord: No Reproductive System Hx Reproductive Disorders: No Sexually Transmitted Disease: No HIV/AIDS: No Genitourinary History of Genitourinary Disor: No Gastrointestinal History of Gastrointestinal Di: No Gastrointestinal Disorders: Chronic Diarrhea Musculoskeletal History of Musculoskeletal Dis: Yes Musculoskeletal Disorders: Chronic Back Pain Endocrine History of Endocrine Disorders: No HEENT History of HEENT Disorders: No Loss of Vision: Denies Hearing Impairment: Denies Cancer History of Cancer: No Psychosocial History of Psychiatric Problem: Yes Behavioral Health Disorders: Anxiety, Bipolar, Depression Integumentary History of Skin or Integumenta: Yes (scarred arms and legs) Blood Transfusions History of Blood Disorders: No Adverse Reaction to a Blood Tr: No Family Medical History Significant Family History: Heart Disease, Stroke Family Medial History: Patient reports no known family medical history. Physical Exam Vital Signs Vital Sign - Last 12Hours 10/31/17 18:58 Temp 100.0 Pulse 113 Resp 18 B/P (MAP) 146/113 (124) Pulse Ox 97 O2 Delivery Room Air Capillary Refill : Less Than 3 Seconds General Appearance: No Apparent Distress, WD/WN, Obese Eyes: Bilateral Eye Normal Inspection, Bilateral Eye PERRL, Bilateral Eye EOMI HEENT: PERRL/EOMI, TMs Normal Neck: Full Range of Motion, Normal Inspection Respiratory: Normal Breath Sounds, No Accessory Muscle Use, No Respiratory Distress Cardiovascular: Regular Rate, Rhythm, Normal Peripheral Pulses Gastrointestinal: Normal Bowel Sounds, Non Tender, Soft Extremity: Normal Capillary Refill, Normal Inspection Neurologic/Psychiatric: Alert, Oriented x3, No Motor/Sensory Deficits Progress/Results/Core Measures Suspected Sepsis Recent Fever Within 48 Hours: Yes Infection Criteria Present: Suspected New Infection New/Unexplained Altered Menta: No Sepsis Screen: Possible Sepsis Risk Sepsis Diagnosis: SIRS Temperature:100.0 Pulse: 113 Respiratory Rate: 18 Laboratory Tests 10/31/17 19:17: White Blood Count 7.5 Blood Pressure 146 /113 Mean: 124 Laboratory Tests 10/31/17 19:17: Platelet Count 278 Results/Orders Lab Results Laboratory Tests Test 10/31/17 19:17 Range/Units White Blood Count 7.5 4.3-11.0 10^3/uL Red Blood Count 4.88 4.35-5.85 10^6/uL Hemoglobin 12.8 11.5-16.0 G/DL Hematocrit 39 35-52 % Mean Corpuscular Volume 80 80-99 FL Mean Corpuscular Hemoglobin 26 25-34 PG Mean Corpuscular Hemoglobin Concent 33 32-36 G/DL Red Cell Distribution Width 13.8 10.0-14.5 % Platelet Count 278 130-400 10^3/uL Mean Platelet Volume 9.8 7.4-10.4 FL Neutrophils (%) (Auto) 64 42-75 % Lymphocytes (%) (Auto) 23 12-44 % Monocytes (%) (Auto) 12 0-12 % Eosinophils (%) (Auto) 1 0-10 % Basophils (%) (Auto) 0 0-10 % Neutrophils # (Auto) 4.8 1.8-7.8 X 10^3 Lymphocytes # (Auto) 1.7 1.0-4.0 X 10^3 Monocytes # (Auto) 0.9 0.0-1.0 X 10^3 Eosinophils # (Auto) 0.1 0.0-0.3 10^3/uL Basophils # (Auto) 0.0 0.0-0.1 10^3/uL My Orders Orders - LUPE ANTONY APRN Cbc With Automated Diff (10/31/17 19:05) Ekg Tracing (10/31/17 19:05) Chest Pa/Lat (2 View) (10/31/17 19:05) Influenza A And B Antigens (10/31/17 19:05) Vital Signs/I&O Vital Sign - Last 12Hours 10/31/17 10/31/17 18:58 18:58 Temp 100.0 Pulse 113 Resp 18 B/P (MAP) 146/113 (124) Pulse Ox 97 O2 Delivery Room Air Room Air Capillary Refill : Less Than 3 Seconds Blood Pressure Mean: 124 Departure Impression Impression: Primary Impression: Viral syndrome Disposition: 01 HOME, SELF-CARE Condition: Stable Departure-Patient Inst. Decision time for Depature: 19:39 Referrals: FABY GONZALEZ MD (PCP/Family) Primary Care Physician Patient Instructions: VIRAL SYNDROME Add. Discharge Instructions: 1. Tylenol and Motrin for fevers and body aches 2. Cough medication as directed 3. Use qsht-dib-obhyhkm cough medication which would be DayQuil and NyQuil. All discharge instructions reviewed with patient and/or family. Voiced understanding. LUPE ANTONY APRN Oct 31, 2017 19:22
[2017-10-31 19:29] LABS: BASOPHILS % (AUTO) 0 % (0-10); EOSINOPHILS # (AUTO) 0.1 10^3/uL (0.0-0.3); EOSINOPHILS % (AUTO) 1 % (0-10); HEMATOCRIT 39 % (35-52); HEMOGLOBIN 12.8 G/DL (11.5-16.0); LYMPHOCYTES # (AUTO) 1.7 X 10^3 (1.0-4.0); LYMPHOCYTES % (AUTO) 23 % (12-44); MEAN CORPUSCULAR HEMOGLOBIN 26 PG (25-34); MEAN CORPUSCULAR HGB CONC 33 G/DL (32-36); MEAN CORPUSCULAR VOLUME 80 FL (80-99); MEAN PLATELET VOLUME 9.8 FL (7.4-10.4); MONOCYTES # (AUTO) 0.9 X 10^3 (0.0-1.0); MONOCYTES % (AUTO) 12 % (0-12); NEUTROPHILS # (AUTO) 4.8 X 10^3 (1.8-7.8); NEUTROPHILS % (AUTO) 64 % (42-75); PLATELET COUNT 278 10^3/uL (130-400); RED BLOOD COUNT 4.88 10^6/uL (4.35-5.85); RED CELL DISTRIBUTION WIDTH 13.8 % (10.0-14.5); WHITE BLOOD COUNT 7.5 10^3/uL (4.3-11.0)
--- NOTE | 2017-10-31 19:37 | Diagnostic Imaging Report ---
INDICATION: Cough and fever COMPARISON: 03/16/2017 FINDINGS: Frontal and lateral views of the chest demonstrate clear lungs bilaterally. The heart is normal. No pneumothorax. The osseous structures normal. IMPRESSION: Negative chest Dictated by: Dictated on workstation # [id number]
[2017-10-31 20:08] VITALS: BP 145/105
== END 2017-10-31 20:08 | disposition home or self-care (01) ==
LOC: EDUNIT# 17:33 → ER 17:34
DX: B34.9 Viral infection, unspecified (principal); F41.9 Anxiety disorder, unspecified; F31.9 Bipolar disorder, unspecified; Z82.49 Family history of ischemic heart disease and other diseases of the circulatory system; Z87.891 Personal history of nicotine dependence; Z90.89 Acquired absence of other organs; Z87.19 Personal history of other diseases of the digestive system
CPT/HCPCS: 36415; 71020; 85025; 87804; 93005

== ENCOUNTER → 2017-12-16 | Outpatient (CLI) | payer MEDICAID ==
[~2017-12-16] MED LIST changes: -FERR-74 PO; +FERR325T18 PO; +HYDR-3584 PO; +TIZA4TAB3 PO; +VILA20TA PO
[2017-12-16 11:06] LABS: ALANINE AMINOTRANSFERASE 14 U/L (0-55); ALBUMIN 3.8 GM/DL (3.2-4.5); ALKALINE PHOSPHATASE 124 U/L (40-136); BILIRUBIN,TOTAL 0.8 MG/DL (0.1-1.0); BUN/CREATININE RATIO 8; CALCIUM 8.5 MG/DL (8.5-10.1); CARBON DIOXIDE 22 MMOL/L (21-32); CHLORIDE 109 MMOL/L (98-107); CREATININE SERUM 0.79 MG/DL (0.60-1.30); GFR ESTIMATED > 60; GLUCOSE 103 MG/DL (70-105); MAGNESIUM 1.9 MG/DL (1.8-2.4); PHOSPHORUS 3.2 MG/DL (2.3-4.7); POTASSIUM 3.2 MMOL/L (3.6-5.0); SODIUM 142 MMOL/L (135-145); TOTAL PROTEIN 6.8 GM/DL (6.4-8.2)
== END ==
LOC: LAB 10:21
PROVIDERS: ATTEND Internal Medicine Endocrinology, Diabetes & Metabolism
DX: R74.8 Abnormal levels of other serum enzymes (principal)
CPT/HCPCS: 36415; 80053; 82306; 83735; 83970; 84100

== ENCOUNTER → 2017-12-23 | Outpatient (CLI) | payer MEDICAID ==
--- NOTE | 2017-12-23 09:01 | Diagnostic Imaging Report ---
INDICATION: Elevated alkaline phosphatase. The liver is normal in size at 17 cm. There is increased echogenicity consistent with hepatic steatosis. No discrete liver mass is identified. The gallbladder is surgically absent. No biliary ductal dilatation is seen. The visualized pancreas is unremarkable. The right kidney is unremarkable. There is no ascites. IMPRESSION: Hepatic steatosis. No other significant abnormality is seen. Dictated by: Dictated on workstation # [id number]
--- NOTE | 2017-12-23 09:17 | Diagnostic Imaging Report ---
INDICATION: Elevated alkaline phosphatase. Time of exam 8:52 AM A skeletal survey was performed. The skull is unremarkable. Cervical, thoracic and lumbar spine are unremarkable. The ribs bilaterally are unremarkable. The upper and lower extremities of the long bones and the bony pelvis are unremarkable. No osteolytic or blastic lesions are seen. No areas of abnormal trabecular thickening are seen. IMPRESSION: Unremarkable skeletal survey. Dictated by: Dictated on workstation # [id number]
== END ==
LOC: RAD 07:43
PROVIDERS: ATTEND Internal Medicine Endocrinology, Diabetes & Metabolism
DX: R74.8 Abnormal levels of other serum enzymes (principal)
CPT/HCPCS: 76705; 77075

== ENCOUNTER 2018-04-12 11:22 | Emergency (ER) | payer MEDICAID ==
[~2018-04-12] VITALS: Ht 172.7 cm; Wt 109.8 kg
--- NOTE | 2018-04-12 11:31 | ED General ---
General Stated Complaint: PRESCRIPTION REACTION -REACTION TO PHENTERMINE Source of Information: Patient Exam Limitations: No Limitations History of Present Illness Date Seen by Provider: Apr 12, 2018 Time Seen by Provider: 11:29 Initial Comments to ER with reports of palpitations and has pain. She was started on 15 mg of phentermine yesterday. She first noticed some palpitations yesterday evening. She then took her phentermine 15 mg tablet this morning at about 8 AM. About 1 hour ago she had a recurrence of the chest pain palpitations. She is worried she may be having a heart attack. Timing/Duration: 1-2 Days Severity: Moderate Allergies and Home Medications Allergies Coded Allergies: naproxen (Unverified Allergy, Severe, 09/14/08) Home Medications Hydroxyzine HCl 10 Mg Tablet, 10 MG PO DAILY, (Reported) Tizanidine HCl 4 Mg Tablet, 8 MG PO HS, (Reported) Vilazodone Hydrochloride 20 Mg Tablet, 20 MG PO HS, (Reported) Patient Home Medication List Home Medication List Reviewed: Yes Review of Systems Constitutional: see HPI EENTM: see HPI Respiratory: no symptoms reported Cardiovascular: no symptoms reported Genitourinary: no symptoms reported Musculoskeletal: no symptoms reported Skin: no symptoms reported Psychiatric/Neurological: No Symptoms Reported Hematologic/Lymphatic: No Symptoms Reported Past [id number] Hx Patient Social History Former Smoker, Quit: Feb 02, 2016 2nd Hand Smoke Exposure: No Recent Foreign Travel: No Contact w/Someone Who Travel: No Recent Hopitalizations: No Immunizations Up To Date Tetanus Booster (TDap): Unknown PED Vaccines UTD: Yes Date of Influenza Vaccine: Aug 27, 2016 Seasonal Allergies Seasonal Allergies: No Past Medical History Surgeries: Yes (GALL BLADDER & TONSILS REMOVED) Adenoidectomy, Gallbladder, Tonsillectomy Respiratory: No Cardiac: No Neurological: No Reproductive Disorders: No Sexually Transmitted Disease: No HIV/AIDS: No Genitourinary: No Gastrointestinal: No Chronic Diarrhea Musculoskeletal: Yes Chronic Back Pain Endocrine: No HEENT: No Loss of Vision: Denies Hearing Impairment: Denies Cancer: No Psychosocial: Yes Anxiety, Bipolar, Depression Integumentary: Yes (scarred arms and legs) Blood Disorders: No Adverse Reaction/Blood Tranf: No Family Medical History Patient reports no known family medical history. Heart Disease, Stroke Physical Exam Vital Signs Capillary Refill : General Appearance: No Apparent Distress, WD/WN Eyes: Bilateral Eye Normal Inspection, Bilateral Eye PERRL HEENT: PERRL/EOMI, TMs Normal Neck: Full Range of Motion, Normal Inspection Respiratory: No Accessory Muscle Use, No Respiratory Distress Cardiovascular: Normal Peripheral Pulses, Tachycardia (sinus 113 no ectopy) Gastrointestinal: Normal Bowel Sounds, Non Tender, Soft Extremity: Normal Capillary Refill Neurologic/Psychiatric: Alert, Oriented x3 Skin: Normal Color, Warm/Dry Progress/Results/Core Measures Suspected Sepsis SIRS Temperature: Pulse: Respiratory Rate: Laboratory Tests 04/12/18 11:36: Blood Pressure / Mean: Laboratory Tests 04/12/18 11:36: Results/Orders Lab Results Laboratory Tests Test 04/12/18 11:36 Range/Units My Orders Orders - LUPE ANTONY APRN Cbc With Automated Diff (04/12/18 11:28) Comprehensive Metabolic Panel (04/12/18 11:28) Troponin I (04/12/18 11:28) Ekg Tracing (04/12/18 11:28) Chest 1 View, Ap/Pa Only (04/12/18 11:28) Vital Signs/I&O Capillary Refill : ECG Initial ECG Impression Date: Apr 12, 2018 Initial ECG Impression Time: 11:46 Initial ECG Rate: 77 Initial ECG Rhythm: Normal Sinus Initial ECG Intervals: Normal Initial ECG Impression: Normal Comment no ST segment changes, sinus rhythm, no ectopy, normal intervals. Departure Impression Primary Impression: Adverse effects of medication Disposition: 01 HOME, SELF-CARE Condition: Stable Departure-Patient Inst. Decision time for Depature: 11:46 Referrals: FABY GONZALEZ MD (PCP/Family) Primary Care Physician Patient Instructions: MEDICATION REACTION Add. Discharge Instructions: 1. Stop using the phentermine. Follow-up with your primary care provider for other weight loss strategies. LUPE ANTONY APRN Apr 12, 2018 11:31
[2018-04-12 11:43] LABS: BASOPHILS % (AUTO) 0 % (0-10); EOSINOPHILS # (AUTO) 0.1 10^3/uL (0.0-0.3); EOSINOPHILS % (AUTO) 1 % (0-10); HEMATOCRIT 38 % (35-52); HEMOGLOBIN 12.5 G/DL (11.5-16.0); LYMPHOCYTES # (AUTO) 2.1 X 10^3 (1.0-4.0); LYMPHOCYTES % (AUTO) 31 % (12-44); MEAN CORPUSCULAR HEMOGLOBIN 27 PG (25-34); MEAN CORPUSCULAR HGB CONC 33 G/DL (32-36); MEAN CORPUSCULAR VOLUME 80 FL (80-99); MEAN PLATELET VOLUME 10.5 FL (7.4-10.4); MONOCYTES # (AUTO) 0.4 X 10^3 (0.0-1.0); MONOCYTES % (AUTO) 6 % (0-12); NEUTROPHILS # (AUTO) 4.2 X 10^3 (1.8-7.8); NEUTROPHILS % (AUTO) 62 % (42-75); PLATELET COUNT 285 10^3/uL (130-400); RED CELL DISTRIBUTION WIDTH 14.8 % (10.0-14.5); WHITE BLOOD COUNT 6.9 10^3/uL (4.3-11.0)
[2018-04-12 12:02] LABS: ALANINE AMINOTRANSFERASE 36 U/L (0-55); ALBUMIN 4.1 GM/DL (3.2-4.5); ALKALINE PHOSPHATASE 112 U/L (40-136); BILIRUBIN,TOTAL 0.8 MG/DL (0.1-1.0); BUN/CREATININE RATIO 12; CALCIUM 8.8 MG/DL (8.5-10.1); CARBON DIOXIDE 21 MMOL/L (21-32); CHLORIDE 111 MMOL/L (98-107); CREATININE SERUM 0.84 MG/DL (0.60-1.30); GFR ESTIMATED > 60; GLUCOSE 106 MG/DL (70-105); POTASSIUM 3.9 MMOL/L (3.6-5.0); SODIUM 140 MMOL/L (135-145); TOTAL PROTEIN 7.4 GM/DL (6.4-8.2)
--- NOTE | 2018-04-12 12:24 | Diagnostic Imaging Report ---
INDICATION: Drug reaction COMPARISON: 10/31/2017 FINDINGS: Single view of the chest demonstrates clear lungs bilaterally. The heart is normal. There is no pneumothorax. The osseous structures normal. IMPRESSION: Negative chest Dictated by: Dictated on workstation # [id number]
[2018-04-12 12:31] VITALS: BP 119/68
== END 2018-04-12 12:31 | disposition home or self-care (01) ==
LOC: EDUNIT# 11:22 → ER 11:24
DX: R00.2 Palpitations (principal); T50.5X5A Adverse effect of appetite depressants, initial encounter; F41.9 Anxiety disorder, unspecified; F31.9 Bipolar disorder, unspecified; Z82.49 Family history of ischemic heart disease and other diseases of the circulatory system; Z88.8 Allergy status to other drugs, medicaments and biological substances; Z87.891 Personal history of nicotine dependence; Z90.89 Acquired absence of other organs
CPT/HCPCS: 36415; 71045; 80053; 84484; 85025; 93005

== ENCOUNTER → 2018-05-06 | Outpatient (CLI) | payer MEDICAID ==
[2018-05-06 09:59] LABS: ALANINE AMINOTRANSFERASE 23 U/L (0-55); ALBUMIN 4.1 GM/DL (3.2-4.5); ALKALINE PHOSPHATASE 120 U/L (40-136); BUN/CREATININE RATIO 14; CALCIUM 8.9 MG/DL (8.5-10.1); CARBON DIOXIDE 22 MMOL/L (21-32); CHLORIDE 110 MMOL/L (98-107); CREATININE SERUM 0.83 MG/DL (0.60-1.30); GFR ESTIMATED > 60; GLUCOSE 108 MG/DL (70-105); POTASSIUM 3.6 MMOL/L (3.6-5.0); SODIUM 138 MMOL/L (135-145); TOTAL PROTEIN 7.1 GM/DL (6.4-8.2)
== END ==
LOC: LAB 09:23
PROVIDERS: ATTEND Internal Medicine Endocrinology, Diabetes & Metabolism
DX: E55.9 Vitamin D deficiency, unspecified (principal)
CPT/HCPCS: 36415; 80053; 82306; 83970

== ENCOUNTER 2018-08-17 17:58 | Emergency (ER) | payer MEDICAID ==
[~2018-08-17] VITALS: Ht 170.2 cm; Wt 104.3 kg
--- OUTSIDE RECORDS SUMMARY | 2018-08-17 18:04 | XMS REPORT ---
Author Author SUZANNE BURNHAM [facility] Address [address] [place] [address] Care Team Providers Care Hotel Guest Service Agent Name Role Phone SUZANNE BURNHAM Unavailable PROBLEMS Type Condition ICD9-CM Code CZV48-CB Code Onset Dates Condition Status SNOMED Code Problem Generalized anxiety disorder F41.1 Active 98746270 Problem Other chronic pain G89.29 Active 38895583 Problem History of methamphetamine abuse Z87.898 Active 772845929 Problem Cervical high risk HPV (human papillomavirus) test positive R87.810 Active 308039172 Problem Atyp squam cell of undet signfc cyto smr crvx (ASC-US) R87.610 Active 658627365 Problem Major depressive disorder, recurrent episode, moderate F33.1 Active 700724164 Problem BMI 36.0-36.9,adult Z68.36 Active 382977337 Problem BMI 39.0-39.9,adult Z68.39 Active 700845920 Problem Alkaline phosphatase elevation R74.8 Active 761263360 Problem Irritable bowel syndrome with diarrhea K58.0 Active 258537353 Problem Recurrent major depressive disorder, in partial remission F33.41 Active 60731076 Problem Anxiety F41.9 Active 58605459 ALLERGIES No Information ENCOUNTERS Encounter Location Date Diagnosis [facility] [id number] [place] [address] 06585- 3177 May, Generalized anxiety disorder F41.1 and Major depressive disorder, recurrent episode, moderate F33.1 [facility] [id number] [place] [address] 43766- 0860 Apr, Anxiety F41.9 [facility] [id number] [place] [address] 20925- 2522 Apr, [facility] [id number] [place] [address] 02580- 6062 Apr, Weight loss counseling, encounter for Z71.3 and BMI 36.0- 36.9,adult Z68.36 [facility] [id number] [place] [address] 35523- 2685 04 Apr, 2018 Anxiety F41.9 [facility] [id number] [place] [address] 06984- 7966 March, Other chronic pain G89.29 [facility] [id number] [place] [address] 72768- 9647 March, [facility] [id number] [place] [address] 03958- 5361 March, Generalized anxiety disorder F41.1 and Major depressive disorder, recurrent episode, moderate F33.1 [facility] [id number] [place] [address] 16296- 6699 Jan, Encounter for Depo-Provera contraception Z30.42 [facility] [id number] [place] [address] 83887- 7849 Jan, Generalized anxiety disorder F41.1 and Major depressive disorder, recurrent episode, moderate F33.1 [facility] [id number] [place] [address] 78913- 4527 Dec, Anxiety F41.9 and Recurrent major depressive disorder, in partial remission F33.41 [facility] [id number] [place] [address] 58504- 4496 Nov, [place] [id number] [place] [address] 55087- 9467 Nov, Other chronic pain G89.29 ; Encounter for surveillance of injectable contraceptive Z30.42 ; BMI 39.0-39.9,adult Z68.39 and Encounter for Depo-Provera contraception Z30.42 [facility] [address] [place] [address] 23871- 6813 Sep, Anxiety F41.9 and Recurrent major depressive disorder, in partial remission F33.41 [facility] [id number] [place] [address] 11385- 7364 Aug, Generalized anxiety disorder F41.1 and Major depressive disorder, recurrent episode, moderate F33.1 [facility] [id number] [place] [address] 81881- 7858 Aug, [facility] [id number] [place] [address] 51556- 4072 Aug, Anxiety F41.9 and Major depressive disorder, recurrent episode, moderate F33.1 [facility] [id number] [place] [address] 80328- 7379 25 Jul, 2017 Encounter for immunization Z23 [facility] [id number] [place] [address] 87658- 4388 19 Jul, 2017 [facility] [id number] [place] [address] 66284- 1625 Jul, [facility] [id number] [place] [address] 61830- 6954 14 Jul, 2017 Alkaline phosphatase elevation R74.8 [facility] [address] 11086- 0573 13 Jul, 2017 Encounter for annual physical exam Z00.00 [facility] [id number] [place] [address] 26675- 1164 Jul, [facility] [id number] [place] [address] 33278- 3907 12 Jul, 2017 Routine gynecological examination Z01.419 ; Dysuria R30.0 and Screening breast examination Z12.31 [facility] [id number] [place] [address] 63085- 0226 12 Jul, 2017 Generalized anxiety disorder F41.1 and Major depressive disorder, recurrent episode, moderate F33.1 [facility] [id number] [place] [address] 18803- 8920 08 Jul, 2017 [facility] [address] [place] [address]- 2079 Jun, Generalized anxiety disorder F41.1 and Major depressive disorder, recurrent episode, moderate F33.1 [facility] [id number] [place] [address] 19923- 0572 Jun, Other chronic pain G89.29 [facility] [address] [place] [address] [id number] May, Dental caries K02.9 [facility] [id number] [place] [address] 07733- 3185 May, Generalized anxiety disorder F41.1 and Major depressive disorder, recurrent episode, moderate F33.1 [facility] [id number] [place] [address] [id number] May, Dental examination Z01.20 [facility] [id number] [place] [address] 32279- 9441 March, [facility] [id number] [place] [address] 35541- 8103 March, Generalized anxiety disorder F41.1 and Major depressive disorder, recurrent episode, moderate F33.1 [facility] [address] [place] [address] 14087- 0998 March, Encounter for annual physical exam Z00.00 and Other chronic pain G89.29 [facility] [address] [address]- 4789 Jan, Generalized anxiety disorder F41.1 and Major depressive disorder, recurrent episode, moderate F33.1 [facility] [address] [place] [address] 90610- 4990 Jan, [facility] [id number] [place] [address] 09621- 5822 Dec, Generalized anxiety disorder F41.1 and Major depressive disorder, recurrent episode, moderate F33.1 [facility] [address] [place] [address] 12595- 7672 Dec, Generalized anxiety disorder F41.1 and Major depressive disorder, recurrent episode, moderate F33.1 [facility] [id number] [place] [address] 95061- 3791 Dec, [facility] [id number] [place] [address] 69745- 9113 Dec, Generalized anxiety disorder F41.1 and Major depressive disorder, recurrent episode, moderate F33.1 [facility] [id number] [place] [address] 24619- 5179 Dec, Diarrhea, unspecified type R19.7 ; Irritable bowel syndrome with diarrhea K58.0 and Alkaline phosphatase elevation R74.8 [facility] [id number] [place] [address] 89559- 0108 Dec, Diarrhea, unspecified type R19.7 and Alkaline phosphatase elevation R74.8 [facility] [address] 69775- 9099 Dec, Generalized anxiety disorder F41.1 and Major depressive disorder, recurrent episode, moderate F33.1 [facility] [id number] [place] [address] 99263- 1501 Dec, Low back pain M54.5 [facility] [id number] [place] [address] 58541- 3938 Dec, Generalized anxiety disorder F41.1 and Major depressive disorder, recurrent episode, moderate F33.1 [facility] [id number] [place] [address] 54835- 3203 Dec, Irritable bowel syndrome with diarrhea K58.0 and Diarrhea, unspecified type R19.7 [facility] [address] 58992- 9821 Dec, [facility] [id number] [place] [address] 53662- 6836 Dec, Generalized anxiety disorder F41.1 and Major depressive disorder, recurrent episode, moderate F33.1 [facility] [id number] [place] [address] 86978 -0331 Nov, Cough R05 ; Viral illness B34.9 and Chronic diarrhea K52.9 [facility] [address] 48272- 3091 Nov, Generalized anxiety disorder F41.1 and Major depressive disorder, recurrent episode, moderate F33.1 [facility] [address] 98603- 0242 Nov, Encounter for Depo-Provera contraception Z30.42 [facility] [address] 72635- 1171 Nov, Generalized anxiety disorder F41.1 and Major depressive disorder, recurrent episode, moderate F33.1 [facility] [address] 23224- 1960 Nov, Low back pain M54.5 [facility] [address] 18244- 3749 Oct, Generalized anxiety disorder F41.1 and Major depressive disorder, recurrent episode, moderate F33.1 [facility] [address] 74867- 4674 Sep, Low back pain M54.5 and Other chronic pain G89.29 [facility] [address] 58888- 9993 Sep, Generalized anxiety disorder F41.1 and Major depressive disorder, recurrent episode, moderate F33.1 [facility] [address] 42357- 2080 Sep, Encounter for Depo-Provera contraception Z30.42 [facility] [address] 47672- 8020 Jul, [facility] [address] 07761- 2075 Jul, [facility] [id number] [place] [address] 26719- 1635 Jul, Encounter for immunization Z23 [facility] [facility] [address] 63036- 2571 Jun, Encounter for Depo-Provera contraception Z30.42 [facility] [id number] [place] [address] 59995- 9706 Jun, Generalized anxiety disorder F41.1 and Major depressive disorder, recurrent episode, moderate F33.1 [facility] [id number] [place] [address] 46134- 5285 May, Generalized anxiety disorder F41.1 and Major depressive disorder, recurrent episode, moderate F33.1 [facility] [id number] [place] [address] 79612- 7837 Apr, Generalized anxiety disorder F41.1 and Major depressive disorder, recurrent episode, moderate F33.1 [facility] [id number] [place] [address] 71866- 9681 March, Encounter for Depo-Provera contraception Z30.42 [facility] [id number] [place] [address] 30749- 2957 March, Generalized anxiety disorder F41.1 and Major depressive disorder, recurrent episode, moderate F33.1 [facility] [id number] [place] [address] 82962- 2632 Jan, Generalized anxiety disorder F41.1 and Major depressive disorder, recurrent episode, moderate F33.1 [facility] [id number] [place] [address] 83776- 4425 Jan, [facility] [id number] [place] [address] 52997 -1950 Jan, Oral infection K12.2 [facility] [id number] [place] [address] 33757- 5816 Jan, Tobacco abuse Z72.0 and Hypokalemia E87.6 [facility] [address] [place] [address] 54628- 0589 Jan, [facility] [id number] [place] [address] 91562- 1350 Dec, Screening, lipid Z13.220 and Hypokalemia E87.6 [facility] [id number] [place] [address] 93910- 4871 Dec, Screening, lipid Z13.220 ; Screening for diabetes mellitus Z13.1 and Tobacco abuse Z72.0 [place] [id number] [place] [address] 97991- 5091 Dec, Generalized anxiety disorder F41.1 and Major depressive disorder, recurrent episode, moderate F33.1 [place] [id number] [place] [address] 39639- 8428 Dec, Routine follow-up Z39.2 ; Encounter for Depo- Provera contraception Z30.42 ; Atyp squam cell of undet signfc cyto smr crvx ( ASC-US) R87.610 and Cervical high risk human papillomavirus (HPV) DNA test positive R87.810 [place] [id number] [place] [address] 01657- 6339 08 Dec, 2015 Generalized anxiety disorder F41.1 and Major depressive disorder, recurrent episode, moderate F33.1 [address] [place] [address] 69635- 8684 Nov, Unspecified high-risk O09.90 and 39 weeks gestation of Z3A.39 [place] [id number] [place] [address] 71376- 3088 Nov, Unspecified high-risk O09.90 and 38 weeks gestation of Z3A.38 [facility] [id number] [place] [address] 24955- 8969 Nov, Unspecified high-risk O09.90 ; Dental infection K04.7 and 37 weeks gestation of Z3A.[id number] [place] [address] 82419- 7404 Oct, screening for streptococcus B Z36 ; 36 weeks gestation of Z3A.36 and Breech presentation, not applicable or unspecified fetus O32.1XX0 [facility] [id number] [place] [address] 51077- 7307 Oct, Unspecified high-risk O09.90 and 34 weeks gestation of Z3A.34 [facility] [address] 84848- 5788 Oct, 32 weeks gestation of Z3A.32 and Unspecified high- risk O09.90 [facility] [facility] [address] 72979- 6375 Sep, Unspecified high-risk O09.90 ; Encounter for immunization Z23 and 30 weeks gestation of Z3A.30 [facility] [address] 34987- 2102 Sep, Generalized anxiety disorder F41.1 and Major depressive disorder, recurrent episode, moderate F33.1 [facility] [address] 04375- 7697 Aug, Unspecified high-risk O09.90 [facility] [id number] [place] [address] 73152- 1997 Aug, Unspecified high-risk O09.90 [facility] [id number] [place] [address] 31999- 0439 Aug, Dental infection K04.7 [facility] [address] 35292- 0782 Aug, Dysuria R30.0 [facility] [id number] [place] [address] 38924- 5723 Aug, Dysuria R30.0 [facility] [facility] [address] 85030- 4907 Jul, Influenza vaccine administered V04.81 [facility] [address] [address]- 9025 Jul, Unspecified high-risk V23.9 [place] [address] [place] [address] 15649- 1478 Jul, Unspecified high-risk V23.9 and ASCUS with positive high risk HPV 796.9 [facility] [place] [id number] [place] [address] 02927- 2489 Jul, [place] [address] [place] [address] 06405- 1182 Jun, [place] [id number] [place] [address] 55958- 2244 Jun, Unspecified high-risk V23.9 ; Pap test, as part of routine gynecological examination V76.2 and Screen for STD (sexually transmitted disease) V74.5 [facility] [address] [address]- 1276 Jun, test positive V72.42 ; Unspecified high-risk V23.9 ; UTI in 646.60 and Vomiting 643.90 [place] [address] [address]- 2836 Jun, [place] [address] [address]- 7932 Jun, [place] [address] [place] [address] 35200- 1159 Jun, [place] [address] [place] [address] 00322- 8716 May, [place] [id number] [place] [address] 21846- 2368 Apr, [place] [address] [place] [address] 46905- 0984 Apr, Absence of menstruation 626.0 [facility] [place] [facility] [address] [id number] [place] [address]- 2593 14 Jan, 2015 [facility] [place] [facility] [address] [id number] [place] [address]- 6526 Jan, [facility] [place] [facility] [address] [id number] [place] [address]- 6209 Dec, [facility] [place] [facility] [address] [id number] [place] [address]- 4145 Dec, [facility] [place] [facility] [address] [id number] [place] [address]- 1148 Dec, [facility] [place] [facility] [address] [id number] [place] [address]- 7015 Dec, [facility] [place] [facility] [address] [facility] [id number] [place] [address]- 1525 Nov, [facility] [place] [facility] [address] [id number], [place] [address]- 6335 Nov, [facility] [place] [facility] [address] [facility] [id number] [place] [address]- 3805 Nov, [facility] [place] [facility] [address] [facility] [id number], [place] [address]- 6300 Nov, [facility] [place] [facility] [address] [facility] [id number], [place] [address]- 6550 Nov, [facility] [place] [facility] [address] [id number], [place] [address]- 4691 Nov, [facility] [place] [facility] [address] [id number] [place] [address]- 6990 Nov, [facility] [place] [facility] [address] [id number], [place] [address]- 3900 Nov, [facility] [place] [facility] [address] [facility] [id number] [place] [address]- 9558 Oct, [facility] [place] [facility] [address] [id number] [place] [address]- 6280 Oct, [facility] [place] [facility] [address] [id number] [place] [address]- 3331 Oct, [facility] [place] [facility] [address] [id number] [place] 9633 Oct, [facility] [place] [facility] [address] [id number] [place] [address]- 2733 Sep, [facility] [place] [facility] [address] [id number] [place] [address]- 9581 Sep, [facility] [place] [facility] [address] [id number] [place] 9197 Jul, [facility] [place] [facility] [address] [id number] [place] [address]- 8581 Jul, [facility] [place] [facility] [address] [id number] [place] [address]- 7344 Apr, [facility] [place] [facility] [address] [id number] [place] [address]- 6685 Apr, [facility] [place] [facility] [address] [id number] [place] [address]- 8505 March, [facility] [place] [facility] [address] [id number] [place] [address]- 3010 March, [facility] [place] [facility] [address] [id number] [place] [address]- 1227 March, [facility] [place] [facility] [address] [id number] [place] [address]- 2829 March, [facility] [place] [facility] [address] [id number] [place] [address]- 0382 Nov, [facility] [place] [facility] [address] [id number] [place] 4833 Nov, [facility] [place] [facility] [address] [id number] [place] [address]- 6209 Nov, [facility] [place] [facility] [address] [id number] [place] [address]- 1783 Nov, [facility] [address] [id number] [place] [address]- 9069 Nov, [facility] [address] [id number] [place] [address]- 5187 Nov, [facility] [address] [id number] [place] [address]- 3770 Nov, [facility] [address] [id number] [place] [address]- 8196 Nov, [facility] [address] [id number] [place] [address]- 5900 Nov, [facility] [address] [id number] [place] [address]- 7652 Nov, [facility] [address] [id number] [place] [address]- 7230 Nov, [facility] [address] [id number] [place] [address]- 5727 Oct, [facility] [address] [id number] [place] [address]- 3767 Oct, [facility] [address] [id number] [place] [address]- 7971 16 Oct, 2013 [facility] [address] [id number] [place] [address]- 7584 13 Oct, 2013 [facility] [address] [id number] [place] [address]- 6931 Oct, [facility] [place] [facility] [address] [id number] [place] [address]- 2253 12 Oct, 2013 [facility] [place] [facility] [address] [id number] [place] [address]- 3934 11 Oct, 2013 [facility] [address] [id number] [place] [address]- 4812 Oct, [facility] [place] [facility] [address] [id number] [place] [address]- 8347 Oct, [facility] [place] [facility] [address] [id number] [place] [address]- 1732 Oct, [facility] [place] [facility] [address] [id number] [place] 4803 Oct, [facility] [place] [facility] [address] [id number] [place] 9184 Oct, [facility] [place] [facility] [address] [id number] [place] [address]- 9030 Sep, [facility] [place] [facility] [address] [id number] [place] [address]- 5996 Sep, [facility] [place] [facility] [address] [id number] [place] 0770 Sep, [facility] [place] [facility] [address] [id number] [place] [address]- 7082 Sep, [facility] [place] [facility] [address] [id number] [place] [address]- 6267 Aug, [facility] [place] [facility] [address] [id number] [place] [address]- 4077 Aug, [facility] [place] [facility] [address] [id number], [place] [address]- 5861 Aug, [facility] [place] [facility] [address] [id number], [place] [address] Aug, [facility] [place] [facility] [address] [id number] [place] [address] Jun, [facility] [place] [facility] [address] [id number], [place] [address] Jun, [facility] [place] [facility] [address] [id number] [place] [address] Apr, [facility] [place] [facility] [address] [id number] [place] [address] 14 Mar, 2013 [facility] [address] [id number] [place] [address] 17 Jan, 2013 [facility] [address] [id number] [place] [address] 16 Jan, 2013 [facility] [address] [id number] [place] [address] 15 Jan, 2013 [facility] [address] [id number] [place] [address] 11 Jan, 2013 [facility] [address] [id number] [place] [address] Dec, [facility] [address] [id number] [place] [address] Dec, [facility] [address] [id number] [place] [address] Dec, [facility] [address] [id number] [place] [address] Dec, [facility] [address] [id number] [place] [address] Oct, [facility] [address] [id number] [place] [address] Oct, [facility] [address] [id number] [place] [address] Oct, [facility] [address] [id number] [place] [address] Oct, [facility] [place] [facility] [address] [id number] [place] [address] Oct, [facility] [place] [facility] [address] [id number] [place] [address] Oct, [facility] [address] [id number] [place] [address] Sep, [facility] [place] [facility] [address] [id number] [place] [address] Sep, [facility] [place] [facility] [address] [id number] [place] [address] Aug, [facility] [place] [facility] [address] [id number] [place] [address] Aug, [facility] [place] [facility] [address] [id number] [place] [address] Aug, [facility] [place] [facility] [address] [id number] [place] [address] Jul, [facility] [place] [facility] [address] [id number] [place] [address] Jul, [facility] [place] [facility] [address] [id number] [place] [address] Jul, [facility] [place] [facility] [address] [id number] [place] [address] Jul, [facility] [place] [facility] [address] [id number] [place] [address] Jun, [facility] [place] [facility] [address] [id number] [place] [address] Jun, [facility] [place] [facility] [address] [id number] [place] [address] Jun, [facility] [place] [facility] [address] [id number], [place] [address] Jun, [facility] [place] [facility] [address] [id number] [place] [address] Jun, [facility] [place] [facility] [address] [id number] [place] [address] May, [facility] [place] [facility] [address] [id number] [place] [address] May, [facility] [place] [facility] [address] [id number] [place] [address] Apr, [facility] [place] [facility] [address] [id number] [place] [address] 2000 Apr, [facility] [place] [facility] [address] [id number] [place] [address] Apr, [facility] [place] [facility] [address] [id number] [place] [address] March, [facility] [place] [facility] [address] [id number] [place] [address] March, [facility] [place] [facility] [address] [id number] [place] [address] March, [facility] [place] [facility] [address] [id number] [place] [address] Jan, [facility] [place] [facility] [address] [id number] [place] [address] Dec, [facility] [place] [facility] [address] [id number] [place] [address] Dec, [facility] [place] [facility] [address] [id number] [place] [address] Dec, [facility] [place] [facility] [address] [facility] [id number] [place] [address] Dec, [facility] [place] [facility] [address] [id number] [place] [address] Dec, [facility] [place] [facility] [address] [id number] [place] [address] 16 Dec, 2011 [facility] [place] [facility] [address] [id number] [place] [address] Dec, [facility] [place] [facility] [address] [id number] [place] [address] 29 Dec, 2011 [facility] [place] [facility] [address] [id number] [place] [address] Dec, [facility] [place] [facility] [address] [id number] [place] [address] Dec, [facility] [place] [facility] [address] [id number] [place] [address]- 4[address] 13 Dec, 2011 [facility] [place] [facility] [address] [id number] [place] [address] 11 Dec, 2011 [facility] [place] [facility] [address] [id number] [place] [address] 47[address] Dec, [facility] [place] [facility] [address] [id number] [place] [address]- [address] 30 Nov, 2011 [facility] [place] [facility] [address] [id number] [place] [address] Nov, [facility] [place] [facility] [address] [id number] [place] [address] 30[address] Nov, [facility] [place] [facility] [address] [id number] [place] [address] Nov, [facility] [place] [facility] [address] [id number] [place] [address] Nov, [facility] [place] [facility] [address] [id number] [place] [address] Nov, [facility] [place] [facility] [address] [id number] [place] [address] 18[address] Nov, [facility] [place] [facility] [address] [id number] [place] [address] Nov, [facility] [place] [facility] [address] [id number] [place] [address] Oct, [facility] [place] [facility] [address] [id number] [place] [address] Oct, [facility] [place] [facility] [address] [id number] [place] [address] 4199 Oct, [facility] [place] [facility] [address] [id number], [place] [address] 15 Oct, 2011 [facility] [place] [facility] [address] [id number] [place] [address] 13 Oct, 2011 [facility] [place] [facility] [address] [id number] [place] [address] 13 Oct, 2011 [facility] [place] [facility] [address] [facility] [id number] [place] [address] 07 Oct, 2011 [facility] [place] [facility] [address] [id number] [place] [address]- 60[address] 23 Sep, 2011 [facility] [place] [facility] [address] [id number] [place] [address], [place] [address]- [address] 18 Sep, 2011 [facility] [place] [facility] [address] [id number] [place] [address] 18 Sep, 2011 [facility] [place] [facility] [address] [facility] [id number], [place] [address] 16 Sep, 2011 [facility] [place] [facility] [address] [id number] [place] [address]- 9687 16 Sep, 2011 [facility] [place] [facility] [address] [facility] [id number] [place] [address] 08 Sep, 2011 [facility] [place] [facility] [address] [facility] [id number] [place] [address] Sep, [facility] [place] [facility] [address] [id number], [place] [address] Aug, [facility] [place] [facility] [address] [id number], [place] [address] Aug, [facility] [place] [facility] [address] [id number], [place] [address] Jun, [facility] [place] [facility] [address] [id number] [place] [address]- 8[address] Oct, [facility] [place] [facility] [address] [facility] [id number], [place] [address] 19 Oct, 2010 [facility] [place] [facility] [address] [id number] [place] [address]- [address] 08 Oct, 2010 [facility] [place] [facility] [address] [id number] [place] [address]- [address]296 16 Dec, 2009 [facility] [place] [facility] [address] [id number] [place] [address] 2546 11 Dec, 2009 [facility] [place] [facility] [address] [id number] [place] [address] 2546 18 Dec, 2009 [facility] [place] [facility] [address] [id number] [place] [address] 2546 11 Dec, 2009 [facility] [place] [facility] [address] [id number] [place] [address]- 7636 Nov, [facility] [place] [facility] [address] [id number] [place] [address] 3856 29 Oct, 2009 [facility] [place] [facility] [address] [id number] [place] [address]- 8616 17 Oct, 2009 [facility] [place] [facility] [address] [id number] [place] [address]- 7795 15 Oct, 2009 [facility] [place] [facility] [address] [id number] [place] [address]- 8587 15 Oct, 2009 [facility] [place] [facility] [address] [id number] [place] [address] 2548 24 Sep, 2009 [facility] [place] [facility] [address] [id number], [place] [address] 2546 03 Sep, 2009 [facility] [place] [facility] [address] [id number] [place] [address] 2548 29 Aug, 2009 [facility] [place] [facility] [address] [id number] [place] [address] 2546 23 Aug, 2009 [facility] [place] [facility] [address] [id number] [place] [address] 2546 13 Aug, 2009 [facility] [place] [facility] [address] [id number] [place] [address] 6[address] Aug, [facility] [address] [facility] [id number] [place] [address] Aug, [facility] [address] [facility] [id number] [place] [address]- [address] Jun, IMMUNIZATIONS No Known Immunizations SOCIAL HISTORY Never Assessed REASON FOR VISIT f/u PLAN OF CARE Activity Details Follow Up prn Reason: F/U VITAL SIGNS MEDICATIONS Unknown Medications RESULTS No Results PROCEDURES Procedure Date Ordered Result Body Site Psychotherapy, patient &/family, 30 minutes, established patient May 09, 2018 INSTRUCTIONS MEDICATIONS ADMINISTERED No Known Medications MEDICAL (GENERAL) HISTORY Type Description Date Medical History Tobacco abuse Surgical History tonsillectomy age 15 Surgical History cholecystectomy 2009 Surgical History colonoscopy 3 times Surgical History 4 natural births Hospitalization History Hospitalization for surgery only
--- OUTSIDE RECORDS SUMMARY | 2018-08-17 18:04 | XMS REPORT ---
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 Name Role Phone FABY GONZALEZ Unavailable PROBLEMS Type Condition ICD9-CM Code YNY95-DG Code Onset Dates Condition Status SNOMED Code Problem Generalized anxiety disorder F41.1 Active 80506325 Problem Other chronic pain G89.29 Active 39366387 Problem History of methamphetamine abuse Z87.898 Active 675779156 Problem Cervical high risk HPV (human papillomavirus) test positive R87.810 Active 418618618 Problem Atyp squam cell of undet signfc cyto smr crvx (ASC-US) R87.610 Active 037137940 Problem Major depressive disorder, recurrent episode, moderate F33.1 Active 631451040 Problem BMI 36.0-36.9,adult Z68.36 Active 628783290 Problem BMI 39.0-39.9,adult Z68.39 Active 575980538 Problem Alkaline phosphatase elevation R74.8 Active 106616023 Problem Irritable bowel syndrome with diarrhea K58.0 Active 748110457 Problem Recurrent major depressive disorder, in partial remission F33.41 Active 62270313 Problem Anxiety F41.9 Active 08557995 ALLERGIES No Information ENCOUNTERS Encounter Location Date Diagnosis [facility] [id number] [place] [address] 12799- 9953 May, Generalized anxiety disorder F41.1 and Major depressive disorder, recurrent episode, moderate F33.1 [facility] [address] [place] [address] 57144- 9987 Apr, Anxiety F41.9 [facility] [address] [place] [address] 16424- 9222 Apr, [facility] [address] [place] [address] 03589- 1650 Apr, Weight loss counseling, encounter for Z71.3 and BMI 36.0- 36.9,adult Z68.36 [facility] [id number] [place] [address] 11340- 3334 04 Apr, 2018 Anxiety F41.9 [facility] [id number] [place] [address] 15529- 4769 March, Other chronic pain G89.29 [facility] [id number] [place] [address] 57547- 7959 March, [facility] [id number] [place] [address] 44891- 6780 March, Generalized anxiety disorder F41.1 and Major depressive disorder, recurrent episode, moderate F33.1 [facility] [id number] [place] [address] 75685- 3821 Jan, Encounter for Depo-Provera contraception Z30.42 [facility] [id number] [place] [address] 33038- 0447 Jan, Generalized anxiety disorder F41.1 and Major depressive disorder, recurrent episode, moderate F33.1 [facility] [id number] [place] [address] 09944- 4645 Dec, Anxiety F41.9 and Recurrent major depressive disorder, in partial remission F33.41 [facility] [id number] [place] [address] 28913- 3156 Nov, [place] [id number] [place] [address] 58674- 3559 Nov, Other chronic pain G89.29 ; Encounter for surveillance of injectable contraceptive Z30.42 ; BMI 39.0-39.9,adult Z68.39 and Encounter for Depo-Provera contraception Z30.42 [facility] [address] [place] [address] 93565- 4987 Sep, Anxiety F41.9 and Recurrent major depressive disorder, in partial remission F33.41 [facility] [id number] [place] [address] 63125- 9729 Aug, Generalized anxiety disorder F41.1 and Major depressive disorder, recurrent episode, moderate F33.1 [facility] [id number] [place] [address] 99052- 0978 Aug, [facility] [id number] [place] [address] 33046- 4747 Aug, Anxiety F41.9 and Major depressive disorder, recurrent episode, moderate F33.1 [facility] [id number] [place] [address] 97889- 3123 25 Jul, 2017 Encounter for immunization Z23 [facility] [id number] [place] [address] 52368- 4540 19 Jul, 2017 [facility] [id number] [place] [address] 42429- 7582 Jul, [facility] [id number] [place] [address] 58139- 8600 14 Jul, 2017 Alkaline phosphatase elevation R74.8 [facility] [address] 43473- 4133 13 Jul, 2017 Encounter for annual physical exam Z00.00 [facility] [id number] [place] [address] 49706- 6660 Jul, [facility] [id number] [place] [address] 98822- 3984 12 Jul, 2017 Routine gynecological examination Z01.419 ; Dysuria R30.0 and Screening breast examination Z12.31 [facility] [id number] [place] [address] 04614- 9971 12 Jul, 2017 Generalized anxiety disorder F41.1 and Major depressive disorder, recurrent episode, moderate F33.1 [facility] [id number] [place] [address] 17256- 4649 08 Jul, 2017 [facility] [address] [place] [address]- 0290 Jun, Generalized anxiety disorder F41.1 and Major depressive disorder, recurrent episode, moderate F33.1 [facility] [id number] [place] [address] 77805- 4968 Jun, Other chronic pain G89.29 [facility] [address] [place] [address] [id number] May, Dental caries K02.9 [facility] [id number] [place] [address] 95478- 5075 May, Generalized anxiety disorder F41.1 and Major depressive disorder, recurrent episode, moderate F33.1 [facility] [id number] [place] [address] [id number] May, Dental examination Z01.20 [facility] [id number] [place] [address] 33512- 1383 March, [facility] [id number] [place] [address] 16091- 8509 March, Generalized anxiety disorder F41.1 and Major depressive disorder, recurrent episode, moderate F33.1 [facility] [address] [place] [address] 29968- 0724 March, Encounter for annual physical exam Z00.00 and Other chronic pain G89.29 [facility] [address], [place] [address]- 5716 Jan, Generalized anxiety disorder F41.1 and Major depressive disorder, recurrent episode, moderate F33.1 [facility] [address] [place] [address] 28654- 4297 Jan, [facility] [id number] [place] [address] 98168- 2639 Dec, Generalized anxiety disorder F41.1 and Major depressive disorder, recurrent episode, moderate F33.1 [facility] [address] [place] [address] 40299- 9087 Dec, Generalized anxiety disorder F41.1 and Major depressive disorder, recurrent episode, moderate F33.1 [facility] [id number] [place] [address] 24435- 0056 Dec, [facility] [id number] [place] [address] 98301- 1545 Dec, Generalized anxiety disorder F41.1 and Major depressive disorder, recurrent episode, moderate F33.1 [facility] [id number] [place] [address] 62880- 7752 Dec, Diarrhea, unspecified type R19.7 ; Irritable bowel syndrome with diarrhea K58.0 and Alkaline phosphatase elevation R74.8 [facility] [id number] [place] [address] 43747- 3619 Dec, Diarrhea, unspecified type R19.7 and Alkaline phosphatase elevation R74.8 [facility] [address] 57283- 7650 Dec, Generalized anxiety disorder F41.1 and Major depressive disorder, recurrent episode, moderate F33.1 [facility] [id number] [place] [address] 92795- 9716 Dec, Low back pain M54.5 [facility] [id number] [place] [address] 78786- 5130 Dec, Generalized anxiety disorder F41.1 and Major depressive disorder, recurrent episode, moderate F33.1 [facility] [id number] [place] [address] 95648- 0668 Dec, Irritable bowel syndrome with diarrhea K58.0 and Diarrhea, unspecified type R19.7 [facility] [address] 88498- 5109 Dec, [facility] [id number] [place] [address] 78145- 9375 Dec, Generalized anxiety disorder F41.1 and Major depressive disorder, recurrent episode, moderate F33.1 [facility] [id number] [place] [address] 60312 -3896 Nov, Cough R05 ; Viral illness B34.9 and Chronic diarrhea K52.9 [facility] [address] 90104- 6862 Nov, Generalized anxiety disorder F41.1 and Major depressive disorder, recurrent episode, moderate F33.1 [facility] [address] 36406- 2830 Nov, Encounter for Depo-Provera contraception Z30.42 [facility] [facility] [address] 20655- 3767 Nov, Generalized anxiety disorder F41.1 and Major depressive disorder, recurrent episode, moderate F33.1 [facility] [address] 24059- 7963 Nov, Low back pain M54.5 [facility] [address] 97912- 9845 Oct, Generalized anxiety disorder F41.1 and Major depressive disorder, recurrent episode, moderate F33.1 [facility] [address] 10199- 7139 Sep, Low back pain M54.5 and Other chronic pain G89.29 [facility] [address] 49876- 6079 Sep, Generalized anxiety disorder F41.1 and Major depressive disorder, recurrent episode, moderate F33.1 [facility] [address] 23656- 6909 Sep, Encounter for Depo-Provera contraception Z30.42 [facility] [address] 83871- 0675 Jul, [facility] [address] 63660- 5767 Jul, [facility] [id number] [place] [address] 01981- 0566 Jul, Encounter for immunization Z23 [facility] [address] 46352- 3076 Jun, Encounter for Depo-Provera contraception Z30.42 [facility] [id number] [place] [address] 37581- 1144 Jun, Generalized anxiety disorder F41.1 and Major depressive disorder, recurrent episode, moderate F33.1 [facility] [id number] [place] [address] 86973- 9672 May, Generalized anxiety disorder F41.1 and Major depressive disorder, recurrent episode, moderate F33.1 [facility] [id number] [place] [address] 12181- 1531 Apr, Generalized anxiety disorder F41.1 and Major depressive disorder, recurrent episode, moderate F33.1 [facility] [id number] [place] [address] 14399- 8926 March, Encounter for Depo-Provera contraception Z30.42 [facility] [id number] [place] [address] 70944- 9129 March, Generalized anxiety disorder F41.1 and Major depressive disorder, recurrent episode, moderate F33.1 [facility] [id number] [place] [address] 81287- 2659 Jan, Generalized anxiety disorder F41.1 and Major depressive disorder, recurrent episode, moderate F33.1 [facility] [id number] [place] [address] 32775- 0061 Jan, [facility] [id number] [place] [address] 45595 -8076 Jan, Oral infection K12.2 [facility] [id number] [place] [address] 68931- 9982 Jan, Tobacco abuse Z72.0 and Hypokalemia E87.6 [facility] [address] [place] [address] 67899- 7235 Jan, [facility] [id number] [place] [address] 57950- 4460 Dec, Screening, lipid Z13.220 and Hypokalemia E87.6 [facility] [id number] [place] [address] 06180- 3824 Dec, Screening, lipid Z13.220 ; Screening for diabetes mellitus Z13.1 and Tobacco abuse Z72.0 [place] [id number] [place] [address] 32294- 8997 Dec, Generalized anxiety disorder F41.1 and Major depressive disorder, recurrent episode, moderate F33.1 [place] [id number] [place] [address] 90187- 5141 Dec, Routine follow-up Z39.2 ; Encounter for Depo- Provera contraception Z30.42 ; Atyp squam cell of undet signfc cyto smr crvx ( ASC-US) R87.610 and Cervical high risk human papillomavirus (HPV) DNA test positive R87.810 [place] [id number] [place] [address] 16751- 1379 08 Dec, 2015 Generalized anxiety disorder F41.1 and Major depressive disorder, recurrent episode, moderate F33.1 [address] [place] [address] 11141- 9809 Nov, Unspecified high-risk O09.90 and 39 weeks gestation of Z3A.39 [place] [id number] [place] [address] 02775- 4653 Nov, Unspecified high-risk O09.90 and 38 weeks gestation of Z3A.38 [facility] [id number] [place] [address] 00183- 5919 Nov, Unspecified high-risk O09.90 ; Dental infection K04.7 and 37 weeks gestation of Z3A.[id number] [place] [address] 79318- 5781 Oct, screening for streptococcus B Z36 ; 36 weeks gestation of Z3A.36 and Breech presentation, not applicable or unspecified fetus O32.1XX0 [facility] [id number] [place] [address] 98023- 7869 Oct, Unspecified high-risk O09.90 and 34 weeks gestation of Z3A.34 [facility] [address] 23716- 7872 Oct, 32 weeks gestation of Z3A.32 and Unspecified high- risk O09.90 [facility] [address] 17476- 6375 Sep, Unspecified high-risk O09.90 ; Encounter for immunization Z23 and 30 weeks gestation of Z3A.30 [facility] [address] 17754- 1170 Sep, Generalized anxiety disorder F41.1 and Major depressive disorder, recurrent episode, moderate F33.1 [facility] [address] 17959- 7417 Aug, Unspecified high-risk O09.90 [facility] [place] [id number] [place] [address] 04006- 3507 Aug, Unspecified high-risk O09.90 [facility] [place] [id number] [place] [address] 62986- 1285 Aug, Dental infection K04.7 [facility] [address] 74034- 7246 Aug, Dysuria R30.0 [place] [id number] [place] [address] 60401- 6280 Aug, Dysuria R30.0 [facility] [address] 57210- 7747 Jul, Influenza vaccine administered V04.81 [facility] [address] [place] [address]- 3439 Jul, Unspecified high-risk V23.9 [facility] [address] [place] [address] 92426- 0794 Jul, Unspecified high-risk V23.9 and ASCUS with positive high risk HPV 796.9 [place] [id number] [place] [address] 78756- 6250 Jul, [facility] [address] [place] [address] 82032- 6260 Jun, [place] [id number] [place] [address] 10321- 0140 Jun, Unspecified high-risk V23.9 ; Pap test, as part of routine gynecological examination V76.2 and Screen for STD (sexually transmitted disease) V74.5 [facility] [address] [address]- 2740 Jun, test positive V72.42 ; Unspecified high-risk V23.9 ; UTI in 646.60 and Vomiting 643.90 [place] [address], [place] [address]- 6712 Jun, [facility] [address] [address]- 8119 Jun, [facility] [place] [address] [place] [address] 03254- 7685 Jun, [facility] [address] [place] [address] 23372- 6595 May, [facility] [place] [id number] [place] [address] 70640- 4952 Apr, [facility] [address] [place] [address] 26981- 9740 Apr, Absence of menstruation 626.0 [facility] [place] [facility] [address] [id number] [place] [address]- 3859 14 Jan, 2015 [facility] [place] [facility] [address] [id number] [place] [address]- 0996 Jan, [facility] [place] [facility] [address] [id number] [place] [address]- 9768 Dec, [facility] [place] [facility] [address] [id number] [place] [address]- 4228 Dec, [facility] [place] [facility] [address] [id number] [place] [address]- 7512 Dec, [facility] [place] [facility] [address] [id number] [place] [address]- 7436 Dec, [facility] [place] [facility] [address] [facility] [id number] [place] [address]- 0264 Nov, [facility] [place] [facility] [address] [id number], [place] [address]- 4014 Nov, [facility] [place] [facility] [address] [facility] [facility] [id number] [place] [address]- 7777 Nov, [facility] [place] [facility] [address] [facility] [id number], [place] [address]- 7394 Nov, [facility] [place] [facility] [address] [facility] [facility] [id number], [place] [address]- 7368 Nov, [facility] [place] [facility] [address] [id number], [place] [address]- 4751 Nov, [facility] [place] [facility] [address] [id number] [place] [address]- 2024 Nov, [facility] [place] [facility] [address] [id number], [place] [address]- 9347 Nov, [facility] [place] [facility] [address] [facility] [facility] [id number] [place] [address]- 9850 Oct, [facility] [place] [facility] [address] [id number] [place] [address]- 9513 Oct, [facility] [place] [facility] [address] [id number] [place] [address]- 0921 Oct, [facility] [place] [facility] [address] [id number] [place] 5459 Oct, [facility] [place] [facility] [address] [id number] [place] [address]- 1378 Sep, [facility] [place] [facility] [address] [id number] [place] [address]- 2142 Sep, [facility] [place] [facility] [address] [id number] [place] 3621 Jul, [facility] [place] [facility] [address] [id number] [place] [address]- 3799 Jul, [facility] [place] [facility] [address] [id number] [place] [address]- 2682 Apr, [facility] [place] [facility] [address] [id number] [place] [address]- 9881 Apr, [facility] [place] [facility] [address] [id number] [place] [address]- 9433 March, [facility] [place] [facility] [address] [id number] [place] [address]- 4316 March, [facility] [place] [facility] [address] [id number] [place] [address]- 9914 March, [facility] [place] [facility] [address] [id number] [place] [address]- 1744 March, [facility] [place] [facility] [address] [id number] [place] [address]- 8909 Nov, [facility] [place] [facility] [address] [id number] [place] 3083 Nov, [facility] [place] [facility] [address] [id number] [place] [address]- 2333 Nov, [facility] [place] [facility] [address] [id number] [place] [address]- 4863 Nov, [facility] [address] [id number] [place] [address]- 8340 Nov, [facility] [address] [id number] [place] [address]- 2924 Nov, [facility] [address] [id number] [place] [address]- 9721 Nov, [facility] [address] [id number] [place] [address]- 7037 Nov, [facility] [address] [id number] [place] [address]- 5436 Nov, [facility] [address] [id number] [place] [address]- 7097 Nov, [facility] [address] [id number] [place] [address]- 1320 Nov, [facility] [address] [id number] [place] [address]- 8374 Oct, [facility] [address] [id number] [place] [address]- 1129 Oct, [facility] [address] [id number] [place] [address]- 7088 16 Oct, 2013 [facility] [address] [id number] [place] [address]- 1563 13 Oct, 2013 [facility] [address] [id number] [place] [address]- 7046 Oct, [facility] [place] [facility] [address] [id number] [place] [address]- 8060 12 Oct, 2013 [facility] [place] [facility] [address] [id number] [place] [address]- 9499 11 Oct, 2013 [facility] [address] [id number] [place] [address]- 0130 Oct, [facility] [place] [facility] [address] [id number] [place] [address]- 2108 Oct, [facility] [place] [facility] [address] [id number] [place] [address]- 7205 Oct, [facility] [place] [facility] [address] [id number] [place] 6001 Oct, [facility] [place] [facility] [address] [id number] [place] 4277 Oct, [facility] [place] [facility] [address] [id number] [place] [address]- 8590 Sep, [facility] [place] [facility] [address] [id number] [place] [address]- 4781 Sep, [facility] [place] [facility] [address] [id number] [place] [address] Sep, [facility] [place] [facility] [address] [id number] [place] [address] Sep, [facility] [place] [facility] [address] [id number] [place] [address] Aug, [facility] [place] [facility] [address] [id number] [place] [address] Aug, [facility] [place] [facility] [address] [id number], [place] [address] Aug, [facility] [place] [facility] [address] [id number], [place] [address] Aug, [facility] [place] [facility] [address] [id number] [place] [address] Jun, [facility] [place] [facility] [address] [id number], [place] [address] Jun, [facility] [place] [facility] [address] [id number] [place] [address] Apr, [facility] [place] [facility] [address] [id number] [place] [address] 14 Mar, 2013 [facility] [address] [id number] [place] [address] 17 Jan, 2013 [facility] [address] [id number] [place] [address] 16 Jan, 2013 [facility] [address] [id number] [place] [address] 15 Jan, 2013 [facility] [address] [id number] [place] [address] 11 Jan, 2013 [facility] [address] [id number] [place] [address] Dec, [facility] [address] [id number] [place] [address] Dec, [facility] [address] [id number] [place] [address] Dec, [facility] [address] [id number] [place] [address] Dec, [facility] [address] [id number] [place] [address] Oct, [facility] [address] [id number] [place] [address] Oct, [facility] [address] [id number] [place] [address] Oct, [facility] [address] [id number] [place] [address] Oct, [facility] [place] [facility] [address] [id number] [place] [address] Oct, [facility] [place] [facility] [address] [id number] [place] [address] Oct, [facility] [address] [id number] [place] [address] Sep, [facility] [place] [facility] [address] [id number] [place] [address] Sep, [facility] [place] [facility] [address] [id number] [place] [address] Aug, [facility] [place] [facility] [address] [id number] [place] [address] Aug, [facility] [place] [facility] [address] [id number] [place] [address] Aug, [facility] [place] [facility] [address] [id number] [place] [address] Jul, [facility] [place] [facility] [address] [id number] [place] [address] Jul, [facility] [place] [facility] [address] [id number] [place] [address] Jul, [facility] [place] [facility] [address] [id number] [place] [address] Jul, [facility] [place] [facility] [address] [id number] [place] [address] Jun, [facility] [place] [facility] [address] [id number] [place] [address] Jun, [facility] [place] [facility] [address] [id number] [place] [address] Jun, [facility] [place] [facility] [address] [id number], [place] [address] Jun, [facility] [place] [facility] [address] [id number] [place] [address] Jun, [facility] [place] [facility] [address] [id number] [place] [address] May, [facility] [place] [facility] [address] [id number] [place] [address] May, [facility] [place] [facility] [address] [id number] [place] [address] Apr, [facility] [place] [facility] [address] [id number] [place] [address] Apr, [facility] [place] [facility] [address] [id number] [place] [address] Apr, [facility] [place] [facility] [address] [id number] [place] [address] March, [facility] [place] [facility] [address] [id number] [place] [address] March, [facility] [place] [facility] [address] [id number] [place] [address] March, [facility] [place] [facility] [address] [id number] [place] [address] Jan, [facility] [place] [facility] [address] [id number] [place] [address] Dec, [facility] [place] [facility] [address] [id number] [place] [address] Dec, [facility] [place] [facility] [address] [id number] [place] [address] Dec, [facility] [place] [facility] [address] [facility] [id number] [place] [address] Dec, [facility] [place] [facility] [address] [id number] [place] [address] Dec, [facility] [place] [facility] [address] [id number] [place] [address] 16 Dec, 2011 [facility] [place] [facility] [address] [id number] [place] [address] Dec, [facility] [place] [facility] [address] [id number] [place] [address] 29 Dec, 2011 [facility] [place] [facility] [address] [id number] [place] [address] Dec, [facility] [place] [facility] [address] [id number] [place] [address]164 Dec, [facility] [place] [facility] [address] [id number] [place] [address] 13 Dec, 2011 [facility] [place] [facility] [address] [id number] [place] [address] 1596 11 Dec, 2011 [facility] [place] [facility] [address] [id number] [place] [address] Dec, [facility] [place] [facility] [address] [id number] [place] [address] 30 Nov, 2011 [facility] [place] [facility] [address] [id number] [place] [address] Nov, [facility] [place] [facility] [address] [id number] [place] [address] Nov, [facility] [place] [facility] [address] [id number] [place] [address]36 Nov, [facility] [place] [facility] [address] [id number] [place] [address]- [address] Nov, [facility] [place] [facility] [address] [id number] [place] [address] Nov, [facility] [place] [facility] [address] [id number] [place] [address] Nov, [facility] [place] [facility] [address] [id number] [place] [address] Nov, [facility] [place] [facility] [address] [id number] [place] [address] 6084 Oct, [facility] [place] [facility] [address] [id number] [place] [address] Oct, [facility] [place] [facility] [address] [id number] [place] [address] Oct, [facility] [place] [facility] [address] [id number], [place] [address] 15 Oct, 2011 [facility] [place] [facility] [address] [id number] [place] [address] 9461 13 Oct, 2011 [facility] [place] [facility] [address] [id number] [place] [address]- [address] 13 Oct, 2011 [facility] [place] [facility] [address] [facility] [id number] [place] [address] 47[address] 07 Oct, 2011 [facility] [place] [facility] [address] [id number] [place] [address]- 0653 23 Sep, 2011 [facility] [place] [facility] [address] [id number] [place] [address], [place] [address] 18 Sep, 2011 [facility] [place] [facility] [address] [id number] [place] [address] 18 Sep, 2011 [facility] [place] [facility] [address] [facility] [id number], [place] [address]- [address] 16 Sep, 2011 [facility] [place] [facility] [address] [id number] [place] [address]- 7521 16 Sep, 2011 [facility] [place] [facility] [address] [facility] [id number] [place] [address] 08 Sep, 2011 [facility] [place] [facility] [address] [facility] [id number] [place] [address] Sep, [facility] [place] [facility] [address] [id number], [place] [address] Aug, [facility] [place] [facility] [address] [id number], [place] [address] Aug, [facility] [place] [facility] [address] [id number], [place] [address] Jun, [facility] [place] [facility] [address] [id number] [place] [address]- 3832 Oct, [facility] [place] [facility] [address] [facility] [id number], [place] [address]- [address]27 19 Oct, 2010 [facility] [place] [facility] [address] [id number] [place] [address]- 3848 08 Oct, 2010 [facility] [place] [facility] [address] [id number] [place] [address]- 6166 16 Dec, 2009 [facility] [place] [facility] [address] [id number] [place] [address] 2546 11 Dec, 2009 [facility] [place] [facility] [address] [id number] [place] [address] 2546 18 Dec, 2009 [facility] [place] [facility] [address] [id number] [place] [address] 2546 11 Dec, 2009 [facility] [place] [facility] [address] [id number] [place] [address]- 1646 Nov, [facility] [place] [facility] [address] [id number] [place] [address] 1968 29 Oct, 2009 [facility] [place] [facility] [address] [id number] [place] [address]- 1936 17 Oct, 2009 [facility] [place] [facility] [address] [id number] [place] [address]- 1166 15 Oct, 2009 [facility] [place] [facility] [address] [id number] [place] [address]- 0346 15 Oct, 2009 [facility] [place] [facility] [address] [id number] [place] [address] 2545 24 Sep, 2009 [facility] [place] [facility] [address] [id number], [place] [address] 2546 03 Sep, 2009 [facility] [place] [facility] [address] [id number] [place] [address] 2549 29 Aug, 2009 [facility] [place] [facility] [address] [id number] [place] [address] 2546 23 Aug, 2009 [facility] [place] [facility] [address] [id number] [place] [address] 2546 13 Aug, 2009 [facility] [place] [facility] [address] [id number] [place] [address]- [address] Aug, [facility] [address] [facility] [id number] [place] [address]- [address] Aug, [facility] [address] [facility] [id number] [place] [address]- [address] Jun, IMMUNIZATIONS No Known Immunizations SOCIAL HISTORY Never Assessed REASON FOR VISIT [facility] Intake PLAN OF CARE VITAL SIGNS MEDICATIONS Unknown Medications RESULTS No Results PROCEDURES No Known procedures INSTRUCTIONS MEDICATIONS ADMINISTERED No Known Medications MEDICAL (GENERAL) HISTORY Type Description Date Medical History Tobacco abuse Surgical History tonsillectomy age 15 Surgical History cholecystectomy 2009 Surgical History colonoscopy 3 times Surgical History 4 natural births Hospitalization History Hospitalization for surgery only
--- OUTSIDE RECORDS SUMMARY | 2018-08-17 18:05 | XMS REPORT ---
Author Author CARLOSFABY GRIGGS Organization [facility] Address [address] [place] [address] Care Team Providers Care Electronics Engineering Technician Name Role Phone FABY GONZALEZ Unavailable PROBLEMS Type Condition ICD9-CM Code [id number] Code Onset Dates Condition Status SNOMED Code Problem Generalized anxiety disorder F41.1 Active 18268168 Problem Other chronic pain G89.29 Active 09738679 Problem History of methamphetamine abuse Z87.898 Active 012242771 Problem Cervical high risk HPV (human papillomavirus) test positive R87.810 Active 646732768 Problem Atyp squam cell of undet signfc cyto smr crvx (ASC-US) R87.610 Active 682053388 Problem Major depressive disorder, recurrent episode, moderate F33.1 Active 009557759 Problem BMI 36.0-36.9,adult Z68.36 Active 222837425 Problem BMI 39.0-39.9,adult Z68.39 Active 335340297 Problem Alkaline phosphatase elevation R74.8 Active 323149438 Problem Irritable bowel syndrome with diarrhea K58.0 Active 975928202 Problem Recurrent major depressive disorder, in partial remission F33.41 Active 53093989 Problem Anxiety F41.9 Active 86168380 ALLERGIES Substance Reaction Event Type Date Status Naproxen swelling Drug Allergy Apr, Active ENCOUNTERS Encounter Location Date Diagnosis [facility] [address] [address] May, Generalized anxiety disorder F41.1 and Major depressive disorder, recurrent episode, moderate F33.1 [facility] [address] [address] Apr, Anxiety F41.9 [facility] [id number] [address] Apr, [facility] [id number] [place] [address] 64842- 8341 11 Apr, 2018 Weight loss counseling, encounter for Z71.3 and BMI 36.0- 36.9,adult Z68.36 [facility] [id number] [place] [address] 05675- 2448 04 Apr, 2018 Anxiety F41.9 [facility] [id number] [place] [address] 29628- 7594 March, Other chronic pain G89.29 [facility] [id number] [place] [address] 63098- 4686 March, [facility] [id number] [place] [address] 54177- 9163 March, Generalized anxiety disorder F41.1 and Major depressive disorder, recurrent episode, moderate F33.1 [facility] [id number] [place] [address] 47249- 4798 Jan, Encounter for Depo-Provera contraception Z30.42 [facility] [id number] [place] [address] 86391- 4061 Jan, Generalized anxiety disorder F41.1 and Major depressive disorder, recurrent episode, moderate F33.1 [facility] [id number] [place] [address] 17566- 2422 Dec, Anxiety F41.9 and Recurrent major depressive disorder, in partial remission F33.41 [facility] [id number] [place] [address] 03733- 6595 Nov, [facility] [id number] [place] [address] 46631- 5903 Nov, Other chronic pain G89.29 ; Encounter for surveillance of injectable contraceptive Z30.42 ; BMI 39.0-39.9,adult Z68.39 and Encounter for Depo-Provera contraception Z30.42 [facility] [id number] [place] [address] 63627- 6069 Sep, Anxiety F41.9 and Recurrent major depressive disorder, in partial remission F33.41 [facility] [id number] [place] [address] 24684- 4985 Aug, Generalized anxiety disorder F41.1 and Major depressive disorder, recurrent episode, moderate F33.1 [facility] [id number] [place] [address] 70575- 4530 Aug, [facility] [address] 99415- 8577 Aug, Anxiety F41.9 and Major depressive disorder, recurrent episode, moderate F33.1 [facility] [address] 367663- 7216 25 Jul, 2017 Encounter for immunization Z23 [facility] [address] 19434- 9964 19 Jul, 2017 [facility] [address] 86897- 4905 19 Jul, 2017 [facility] [id number] [place] [address] 97332- 8080 14 Jul, 2017 Alkaline phosphatase elevation R74.8 [facility] [address] 75040- 6554 13 Jul, 2017 Encounter for annual physical exam Z00.00 [facility] [id number] [place] [address] 40165- 2364 13 Jul, 2017 [facility] [address] 55812- 3491 12 Jul, 2017 Routine gynecological examination Z01.419 ; Dysuria R30.0 and Screening breast examination Z12.31 [facility] [address] 26122- 9108 12 Jul, 2017 Generalized anxiety disorder F41.1 and Major depressive disorder, recurrent episode, moderate F33.1 [facility] [address] 02197- 7056 Jul, [facility] [address] [address] 9892 Jun, Generalized anxiety disorder F41.1 and Major depressive disorder, recurrent episode, moderate F33.1 [facility] [address] [address] 3569 Jun, Other chronic pain G89.29 [facility] [address] [address] May, Dental caries K02.9 [facility] [id number] [place] [address] 88012- 8052 May, Generalized anxiety disorder F41.1 and Major depressive disorder, recurrent episode, moderate F33.1 [facility] [address] [address] May, Dental examination Z01.20 [facility] [address] [address] 8[address] March, [facility] [id number] [place] [address] 02631- 2116 March, Generalized anxiety disorder F41.1 and Major depressive disorder, recurrent episode, moderate F33.1 [facility] [address] [address] 1377 March, Encounter for annual physical exam Z00.00 and Other chronic pain G89.29 [facility] [address] [address]- 5837 Jan, Generalized anxiety disorder F41.1 and Major depressive disorder, recurrent episode, moderate F33.1 [facility] [address] [address]- 6825 Jan, [facility] [address] [address]- 8623 Dec, Generalized anxiety disorder F41.1 and Major depressive disorder, recurrent episode, moderate F33.1 [facility] [id number] [address]- 1170 17 Dec, 2016 Generalized anxiety disorder F41.1 and Major depressive disorder, recurrent episode, moderate F33.1 [facility] [id number] [place] [address] 10905- 6989 16 Dec, 2016 [facility] [id number] [place] [address] 10657- 9972 16 Dec, 2016 Generalized anxiety disorder F41.1 and Major depressive disorder, recurrent episode, moderate F33.1 [facility] [id number] [place] [address] 70788- 3287 15 Dec, 2016 Diarrhea, unspecified type R19.7 ; Irritable bowel syndrome with diarrhea K58.0 and Alkaline phosphatase elevation R74.8 [facility] [id number] [place] [address] 85087- 5837 Dec, Diarrhea, unspecified type R19.7 and Alkaline phosphatase elevation R74.8 [facility] [id number] [place] [address] 41073- 8068 Dec, Generalized anxiety disorder F41.1 and Major depressive disorder, recurrent episode, moderate F33.1 [facility] [id number] [place] [address] 24438- 0291 Dec, Low back pain M54.5 [facility] [id number] [place] [address] 34429- 2260 Dec, Generalized anxiety disorder F41.1 and Major depressive disorder, recurrent episode, moderate F33.1 [facility] [id number] [place] [address] 13087- 7381 Dec, Irritable bowel syndrome with diarrhea K58.0 and Diarrhea, unspecified type R19.7 [facility] [id number] [place] [address] 22263- 6583 Dec, [facility] [id number] [place] [address] 12225- 1932 Dec, Generalized anxiety disorder F41.1 and Major depressive disorder, recurrent episode, moderate F33.1 [facility] [id number] [place] [address] 33495 -9418 Nov, Cough R05 ; Viral illness B34.9 and Chronic diarrhea K52.9 [facility] [id number] [place] [address] 57618- 4381 Nov, Generalized anxiety disorder F41.1 and Major depressive disorder, recurrent episode, moderate F33.1 [facility] [address] 47334- 2218 Nov, Encounter for Depo-Provera contraception Z30.42 [facility] [facility] [address] 80239- 3284 Nov, Generalized anxiety disorder F41.1 and Major depressive disorder, recurrent episode, moderate F33.1 [facility] [address] 53304- 0693 Nov, Low back pain M54.5 [facility] [facility] [address] 27649- 2145 Oct, Generalized anxiety disorder F41.1 and Major depressive disorder, recurrent episode, moderate F33.1 [facility] [id number] [place] [address] 85850- 6429 Sep, Low back pain M54.5 and Other chronic pain G89.29 [facility] [id number] [place] [address] 78612- 6922 Sep, Generalized anxiety disorder F41.1 and Major depressive disorder, recurrent episode, moderate F33.1 [facility] [facility] [address] 95417- 7344 Sep, Encounter for Depo-Provera contraception Z30.42 [facility] [id number] [place] [address] 48195- 6497 30 Jul, 2016 [facility] [address] 93131- 7981 Jul, [facility] [id number] [place] [address] 76168- 7698 Jul, Encounter for immunization Z23 [facility] [id number] [place] [address] 04756- 4842 Jun, Encounter for Depo-Provera contraception Z30.42 [facility] [id number] [place] [address] 69428- 8801 Jun, Generalized anxiety disorder F41.1 and Major depressive disorder, recurrent episode, moderate F33.1 [facility] [id number] [place] [address] 42290- 2138 May, Generalized anxiety disorder F41.1 and Major depressive disorder, recurrent episode, moderate F33.1 [facility] [id number] [place] [address] 55664- 0733 Apr, Generalized anxiety disorder F41.1 and Major depressive disorder, recurrent episode, moderate F33.1 [facility] [id number] [place] [address] 16691- 4679 March, Encounter for Depo-Provera contraception Z30.42 [facility] [id number] [place] [address] 83196- 1315 March, Generalized anxiety disorder F41.1 and Major depressive disorder, recurrent episode, moderate F33.1 [facility] [id number] [place] [address] 44183- 3301 Jan, Generalized anxiety disorder F41.1 and Major depressive disorder, recurrent episode, moderate F33.1 [facility] [id number] [place] [address] 52912- 2513 Jan, [facility] [id number] [place] [address] 48425 -4942 Jan, Oral infection K12.2 [facility] [id number] [place] [address] 92350- 4902 Jan, Tobacco abuse Z72.0 and Hypokalemia E87.6 [facility] [id number] [place] [address] 00456- 7547 Jan, [facility] [id number] [place] [address]01 Dec, Screening, lipid Z13.220 and Hypokalemia E87.6 [facility] [facility] [address] 81487- 8790 Dec, Screening, lipid Z13.220 ; Screening for diabetes mellitus Z13.1 and Tobacco abuse Z72.0 [facility] [address] 13779- 4341 Dec, Generalized anxiety disorder F41.1 and Major depressive disorder, recurrent episode, moderate F33.[address] 50826- 9127 Dec, Routine follow-up Z39.2 ; Encounter for Depo- Provera contraception Z30.42 ; Atyp squam cell of undet signfc cyto smr crvx ( ASC-US) R87.610 and Cervical high risk human papillomavirus (HPV) DNA test positive R87.810 [facility] [id number] [place] [address] 85608- 0633 Dec, Generalized anxiety disorder F41.1 and Major depressive disorder, recurrent episode, moderate F33.1 [facility] [id number] [place] [address] 89217- 4246 Nov, Unspecified high-risk O09.90 and 39 weeks gestation of Z3A.39 [facility] [address] 50667- 2022 13 Nov, 2015 Unspecified high-risk O09.90 and 38 weeks gestation of Z3A.38 [facility] [id number] [place] [address] 92679- 4711 Nov, Unspecified high-risk O09.90 ; Dental infection K04.7 and 37 weeks gestation of Z3A.37 [facility] [id number] [place] [address] 22031- 3973 Oct, screening for streptococcus B Z36 ; 36 weeks gestation of Z3A.36 and Breech presentation, not applicable or unspecified fetus O32.1XX0 [facility] [id number] [place] [address] 10181- 4020 Oct, Unspecified high-risk O09.90 and 34 weeks gestation of Z3A.34 [facility] [id number] [place] [address] 71725- 3146 Oct, 32 weeks gestation of Z3A.32 and Unspecified high- risk O09.90 [facility] [id number] [place] [address] 85150- 6391 Sep, Unspecified high-risk O09.90 ; Encounter for immunization Z23 and 30 weeks gestation of Z3A.30 [facility] [id number] [place] [address] 17431- 0163 Sep, Generalized anxiety disorder F41.1 and Major depressive disorder, recurrent episode, moderate F33.1 [facility] [id number] [place] [address] 50549- 5410 Aug, Unspecified high-risk O09.90 [facility] [id number] [place] [address] 30368- 5438 Aug, Unspecified high-risk O09.90 [facility] [id number] [place] [address] 69991- 0229 Aug, Dental infection K04.7 [facility] [id number] [place] [address] 56565- 1261 Aug, Dysuria R30.0 [facility] [id number] [place] [address] 78691- 9798 Aug, Dysuria R30.0 [facility] [address] [place] [address]- 9767 Jul, Influenza vaccine administered V04.81 [facility] [id number] [place] [address] 65297- 6429 Jul, Unspecified high-risk V23.9 [facility] [id number] [place] [address] 00574- 4419 Jul, Unspecified high-risk V23.9 and ASCUS with positive high risk HPV 796.9 [facility] [id number] [place] [address] 42757- 5495 Jul, [facility] [facility] [id number] [place] [address] 49260- 1045 Jun, [facility] [id number] [place] [address] 92558- 4143 Jun, Unspecified high-risk V23.9 ; Pap test, as part of routine gynecological examination V76.2 and Screen for STD (sexually transmitted disease) V74.5 [facility] [address] [place] [address] 14177- 6018 Jun, test positive V72.42 ; Unspecified high-risk V23.9 ; UTI in 646.60 and Vomiting 643.90 [facility] [address] [address]- 7724 Jun, [facility] [address] [place] [address] 83812- 5683 Jun, [facility] [facility] [address] [place] [address] 81850- 5912 Jun, [facility] [facility] [id number] [place] [address] 94032- 5063 May, [facility] [facility] [id number] [place] [address] 73108- 7593 Apr, [facility] [id number] [place] [address] 24232- 5278 Apr, Absence of menstruation 626.0 [facility] [address] [id number] [address]- 9456 14 Jan, 2015 [facility] [address] [id number] [address]83 Jan, [facility] [address] [facility] [id number] [address]- 9244 Dec, [facility] [place] [facility] [address] [id number] [address]- 7496 Dec, [facility] [address] [facility] [id number] [place] [address]- 6745 Dec, [facility] [address] [facility] [id number] [place] [address]61 Dec, [facility] [id number] [address]- 2687 Nov, [facility] [address] [facility] [id number] [place] [address]- 2568 Nov, [facility] [address] [address]- 7364 Nov, [facility] [address] [facility] [id number] [place] [address]- 4580 Nov, [facility] [address] [facility] [id number] [address]- 5788 Nov, [facility] [address] [facility] [id number] [place] [address]- 5562 Nov, [facility] [place] [facility] [address] [facility] [id number] [address]- 6963 Nov, [facility] [place] [facility] [address] [facility] [id number] [place] [address]- 8226 Nov, [facility] [address] [facility] [id number] [address]- 1749 Oct, [facility] [place] [facility] [address] [id number] [place] [address]- 8609 Oct, [facility] [place] [facility] [address] [id number] [place] [address]- 2628 Oct, [facility] [place] [facility] [address] [id number] [place] [address]- 2545 Oct, [facility] [place] [facility] [address] [id number] [place] [address]- 2260 Sep, [facility] [place] [facility] [address] [id number] [place] [address]- 0569 Sep, [facility] [place] [facility] [address] [id number] [place] [address]- 6719 Jul, [facility] [place] [facility] [address] [id number] [place] [address]- 1063 Jul, [facility] [place] [facility] [address] [id number] [place] [address]- 2652 Apr, [facility] [place] [facility] [address] [id number] [place] [address]- 4303 Apr, [facility] [place] [facility] [address] [id number] [place] [address]- 8553 March, [facility] [place] [facility] [address] [id number] [place] [address]- 6944 March, [facility] [place] [facility] [address] [id number] [place] [address]- 9917 March, [facility] [place] [facility] [address] [id number] [place] [address]- 9488 March, [facility] [place] [facility] [address] [id number] [place] [address]- 4206 Nov, [facility] [place] [facility] [address] [id number] [place] [address]- 2143 Nov, [facility] [place] [facility] [address] [id number] [address]- 1060 Nov, [facility] [address] [id number] [place] [address]- 9062 Nov, [facility] [place] [facility] [address] [id number] [place] [address]- 1236 Nov, [facility] [place] [facility] [address] [id number] [place] [address]- 5513 Nov, [facility] [place] [facility] [address] [id number] [place] [address]- 0261 Nov, [facility] [place] [facility] [address] [id number] [place] [address]- 5778 Nov, [facility] [place] [facility] [address] [id number] [place] [address]- 1013 Nov, [facility] [address] [id number] [place] [address]- 5230 Nov, [facility] [place] [facility] [address] [id number] [place] [address]- 6178 Nov, [facility] [address] [id number] [place] [address]- 3431 Oct, [facility] [place] [facility] [address] [id number] [place] [address]- 9601 16 Oct, 2013 [facility] [place] [facility] [address] [id number] [place] [address]- 8842 16 Oct, 2013 [facility] [place] [facility] [address] [id number] [place] [address]- 2886 13 Oct, 2013 [facility] [place] [facility] [address] [id number] [place] [address]- 0259 13 Oct, 2013 [facility] [place] [facility] [address] [id number] [place] [address]- 7929 12 Oct, 2013 [facility] [place] [facility] [address] [id number] [place] [address]- 8445 11 Oct, 2013 [facility] [place] [facility] [address] [id number] [place] [address]- 6139 Oct, [facility] [place] [facility] [address] [id number] [place] [address]- 7093 Oct, [facility] [place] [facility] [address] [id number] [place] [address]- 0450 Oct, [facility] [place] [facility] [address] [id number] [place] [address]- 6040 Oct, [facility] [place] [facility] [address] [id number] [place] [address]- 8634 Oct, [facility] [place] [facility] [address] [id number] [place] [address]- 9809 Sep, [facility] [place] [facility] [address] [id number] [place] [address]- 4133 Sep, [facility] [place] [facility] [address] [id number] [place] [address]- 6328 Sep, [facility] [place] [facility] [address] [id number] [place] [address] Sep, [facility] [place] [facility] [address] [id number] [place] [address] Aug, [facility] [place] [facility] [address] [id number] [place] [address] Aug, [facility] [place] [facility] [address] [id number] [place] [address] Aug, [facility] [place] [facility] [address] [id number] [place] [address] Aug, [facility] [place] [facility] [address] [id number] [place] [address] Jun, [facility] [place] [facility] [address] [id number] [place] [address] Jun, [facility] [place] [facility] [address] [id number] [place] [address] Apr, [facility] [address] [id number] [place] [address] 14 Mar, 2013 [facility] [place] [facility] [address] [id number] [place] [address] 17 Jan, 2013 [facility] [place] [facility] [address] [id number] [place] [address] 16 Jan, 2013 [facility] [place] [facility] [address] [id number] [place] [address] 15 Jan, 2013 [facility] [address] [id number] [place] [address] Jan, [facility] [place] [facility] [address] [id number] [place] [address] Dec, [facility] [place] [facility] [address] [id number] [place] [address] Dec, [facility] [place] [facility] [address] [id number] [place] [address] Dec, [facility] [place] [facility] [address] [id number] [place] [address] Dec, [facility] [place] [facility] [address] [id number] [place] [address] Oct, [facility] [place] [facility] [address] [id number] [place] [address] Oct, [facility] [place] [facility] [address] [id number] [place] [address] Oct, [facility] [place] [facility] [address] [id number] [place] [address] Oct, [facility] [place] [facility] [address] [id number] [place] [address] Oct, [facility] [place] [facility] [address] [id number] [place] [address] Oct, [facility] [place] [facility] [address] [id number] [place] [address] Sep, [facility] [place] [facility] [address] [id number] [place] [address] Sep, [facility] [place] [facility] [address] [id number] [place] [address] Aug, [facility] [place] [facility] [address] [id number] [place] [address] Aug, [facility] [place] [facility] [address] [id number] [place] [address] Aug, [facility] [place] [facility] [address] [id number] [place] [address] Jul, [facility] [place] [facility] [address] [id number] [place] [address] Jul, [facility] [place] [facility] [address] [id number] [place] [address] Jul, [facility] [place] [facility] [address] [id number] [place] [address] Jul, [facility] [place] [facility] [address] [id number] [place] [address] Jun, [facility] [place] [facility] [address] [id number] [place] [address] Jun, [facility] [place] [facility] [address] [id number] [place] [address] Jun, [facility] [place] [facility] [address] [id number] [place] [address] Jun, [facility] [place] [facility] [address] [id number] [place] [address] Jun, [facility] [place] [facility] [address] [id number] [place] [address] May, [facility] [place] [facility] [address] [id number] [place] [address] May, [facility] [place] [facility] [address] [id number] [place] [address] Apr, [facility] [place] [facility] [address] [id number] [place] [address] Apr, [facility] [address] [id number] [place] [address] Apr, [facility] [address] [id number] [place] [address] March, [facility] [address] [id number] [place] [address] March, [facility] [address] [id number] [place] [address] March, [facility] [address] [id number] [place] [address] Jan, [facility] [address] [id number] [place] [address] Dec, [facility] [address] [id number] [place] [address] Dec, [facility] [address] [id number] [place] [address] Dec, [facility] [place] [facility] [address] [id number] [place] [address] Dec, [facility] [place] [facility] [address] [id number] [place] [address] Dec, [facility] [place] [facility] [address] [id number] [place] [address] 16 Dec, 2011 [facility] [place] [facility] [address] [id number] [place] [address] Dec, [facility] [place] [facility] [address] [id number] [place] [address] Dec, [facility] [place] [facility] [address] [id number] [place] [address] 28 Dec, 2011 [facility] [address] [id number] [place] [address] 21 Dec, 2011 [facility] [place] [facility] [address] [id number] [place] [address] 13 Dec, 2011 [facility] [address] [id number] [place] [address] 11 Dec, 2011 [facility] [place] [facility] [address] [id number] [place] [address] 10 Dec, 2011 [facility] [address] [id number] [place] [address] 30 Nov, 2011 [facility] [address] [id number] [place] [address] 24 Nov, 2011 [facility] [address] [id number] [place] [address] Nov, [facility] [address] [id number] [place] [address] Nov, [facility] [address] [id number] [place] [address] 17 Nov, 2011 [facility] [address] [id number] [place] [address] Nov, [facility] [address] [id number] [place] [address] Nov, [facility] [place] [facility] [address] [id number] [place] [address] Nov, [facility] [place] [facility] [address] [id number] [place] [address] Oct, [facility] [place] [facility] [address] [id number] [place] [address] Oct, [facility] [address] [id number] [place] [address] Oct, [facility] [place] [facility] [address] [id number] [place] [address] 15 Oct, 2011 [facility] [place] [facility] [address] [id number] [place] [address] Oct, [facility] [place] [facility] [address] [id number] [place] [address] 13 Oct, 2011 [facility] [place] [facility] [address] [id number] [place] [address] 07 Oct, 2011 [facility] [place] [facility] [address] [id number] [place] [address] 23 Sep, 2011 [facility] [place] [facility] [address] [id number] [place] [address] 18 Sep, 2011 [facility] [place] [facility] [address] [id number] [place] [address] Sep, [facility] [place] [facility] [address] [id number] [place] [address]295 16 Sep, 2011 [facility] [place] [facility] [address] [id number] [place] [address] 8527 16 Sep, 2011 [facility] [place] [facility] [address] [id number] [place] [address]- 16[address] Sep, [facility] [place] [facility] [address] [id number] [place] [address] Sep, [facility] [place] [facility] [address] [id number] [place] [address] 58[address] Aug, [facility] [place] [facility] [address] [id number] [place] [address] Aug, [facility] [place] [facility] [address] [id number] [place] [address] Jun, [facility] [place] [facility] [address] [id number] [place] [address] Oct, [facility] [place] [facility] [address] [id number] [address] 19 Oct, 2010 [facility] [address] [id number] [place] [address]- 488[address] 08 Oct, 2010 [facility] [place] [facility] [address] [id number] [place] [address]196 16 Dec, 2009 [facility] [place] [facility] [address] [id number] [place] [address] 2546 11 Dec, 2009 [facility] [place] [facility] [address] [id number] [address] 18 Dec, 2009 [facility] [address] [id number] [place] [address]696 11 Dec, 2009 [facility] [place] [facility] [address] [id number] [place] [address] Nov, [facility] [address] [id number] [address] 29 Oct, 2009 [facility] [place] [facility] [address] [id number] [address] 17 Oct, 2009 [facility] [address] [id number] [address] 15 Oct, 2009 [facility] [place] [facility] [address] [id number] [place] [address] 15 Oct, 2009 [facility] [place] [facility] [address] [id number] [place] [address] 2547 24 Sep, 2009 [facility] [place] [facility] [address] [id number] [place] [address] 2549 03 Sep, 2009 [facility] [place] [facility] [address] [id number] [place] [address] 2544 29 Aug, 2009 [facility] [place] [facility] [address] [id number] [address]- [address] 23 Aug, 2009 [facility] [place] [facility] [address] [id number] [place] [address] 2546 13 Aug, 2009 [facility] [place] [facility] [address] [facility] [id number] [place] [address] Aug, [facility] [address] [facility] [id number] [place] [address] Aug, [facility] [address] [facility] [id number] [place] [address] Jun, IMMUNIZATIONS No Known Immunizations SOCIAL HISTORY Never Assessed REASON FOR VISIT medication, patient states she needs a diet pill to help he rto lose weigh and also muscle relax medication -- shelia whiteside PLAN OF CARE Activity Details Follow Up 4 Weeks Reason:weight management VITAL SIGNS Height 68 in 2018-04-11 Weight 242.0 lbs 2018-04-11 Temperature 98.0 degrees Fahrenheit 2018-04-11 Heart Rate 80 bpm 2018-04-11 Respiratory Rate 18 2018-04-11 BMI 36.79 kg/m2 2018-04-11 Blood pressure systolic 132 mmHg 2018-04-11 Blood pressure diastolic 82 mmHg 2018-04-11 MEDICATIONS Medication Instructions Dosage Frequency Start Date End Date Duration Status HydrOXYzine HCl 10 MG Orally twice a day as needed for anxiety 1 tablet Aug, Not-Taking Phentermine HCl 15 mg Orally Once a day 1 capsule 24h Apr,May 30 days Active Viibryd 20 mg Orally Once a day 1 tablet with food 24h 30 days Active Vitamin D 03139 iu Orally once weekly 1 tablet Active Tizanidine HCl 4 MG Orally Three times a day 1 tablet as needed 8h 90 days Active RESULTS No Results PROCEDURES No Known procedures INSTRUCTIONS MEDICATIONS ADMINISTERED No Known Medications MEDICAL (GENERAL) HISTORY Type Description Date Medical History Tobacco abuse Surgical History tonsillectomy age 15 Surgical History cholecystectomy 2009 Surgical History colonoscopy 3 times Surgical History 4 natural births Hospitalization History Hospitalization for surgery only
--- OUTSIDE RECORDS SUMMARY | 2018-08-17 18:05 | XMS REPORT ---
Author Author LARRY HILDA Organization [facility] Address [address] [place] [address] Care Team Providers Care Administrative Job Titles Name Role Phone ELISEHILDA NASH Unavailable PROBLEMS Type Condition ICD9-CM Code [id number] Code Onset Dates Condition Status SNOMED Code Problem Generalized anxiety disorder F41.1 Active 89534243 Problem Other chronic pain G89.29 Active 78503530 Problem History of methamphetamine abuse Z87.898 Active 967727888 Problem Cervical high risk HPV (human papillomavirus) test positive R87.810 Active 654852855 Problem Atyp squam cell of undet signfc cyto smr crvx (ASC-US) R87.610 Active 298616962 Problem Major depressive disorder, recurrent episode, moderate F33.1 Active 032937281 Problem BMI 36.0-36.9,adult Z68.36 Active 366603637 Problem BMI 39.0-39.9,adult Z68.39 Active 694960182 Problem Alkaline phosphatase elevation R74.8 Active 894463837 Problem Irritable bowel syndrome with diarrhea K58.0 Active 915816450 Problem Recurrent major depressive disorder, in partial remission F33.41 Active 94106324 Problem Anxiety F41.9 Active 40761228 ALLERGIES No Information ENCOUNTERS Encounter Location Date Diagnosis [facility] [id number] [place] [address] 44325- 5712 May, Generalized anxiety disorder F41.1 and Major depressive disorder, recurrent episode, moderate F33.1 [facility] [id number] [place] [address] 35423- 3341 Apr, Anxiety F41.9 [facility] [id number] [place] [address] 54155- 4898 Apr, [facility] [id number] [place] [address] 02097- 4394 Apr, Weight loss counseling, encounter for Z71.3 and BMI 36.0- 36.9,adult Z68.36 [facility] [id number] [place] [address] 84451- 7868 04 Apr, 2018 Anxiety F41.9 [facility] [id number] [place] [address] 55454- 0972 March, Other chronic pain G89.29 [facility] [id number] [place] [address] 10879- 0414 March, [facility] [id number] [place] [address] 28476- 9214 March, Generalized anxiety disorder F41.1 and Major depressive disorder, recurrent episode, moderate F33.1 [facility] [id number] [place] [address] 33167- 8522 Jan, Encounter for Depo-Provera contraception Z30.42 [facility] [id number] [place] [address] 16234- 5035 Jan, Generalized anxiety disorder F41.1 and Major depressive disorder, recurrent episode, moderate F33.1 [facility] [id number] [place] [address] 76207- 2402 Dec, Anxiety F41.9 and Recurrent major depressive disorder, in partial remission F33.41 [facility] [id number] [place] [address] 56438- 2577 Nov, [place] [id number] [place] [address] 26279- 3928 Nov, Other chronic pain G89.29 ; Encounter for surveillance of injectable contraceptive Z30.42 ; BMI 39.0-39.9,adult Z68.39 and Encounter for Depo-Provera contraception Z30.42 [facility] [address] [place] [address] 68333- 5641 Sep, Anxiety F41.9 and Recurrent major depressive disorder, in partial remission F33.41 [facility] [id number] [place] [address] 35413- 1107 Aug, Generalized anxiety disorder F41.1 and Major depressive disorder, recurrent episode, moderate F33.1 [facility] [id number] [place] [address] 08991- 9837 Aug, [facility] [id number] [place] [address] 30284- 0148 Aug, Anxiety F41.9 and Major depressive disorder, recurrent episode, moderate F33.1 [facility] [id number] [place] [address] 55372- 4838 25 Jul, 2017 Encounter for immunization Z23 [facility] [id number] [place] [address] 46002- 1154 19 Jul, 2017 [facility] [id number] [place] [address] 65933- 4716 Jul, [facility] [id number] [place] [address] 74145- 8056 14 Jul, 2017 Alkaline phosphatase elevation R74.8 [facility] [id number] [place] [address] 12795- 7678 13 Jul, 2017 Encounter for annual physical exam Z00.00 [facility] [id number] [place] [address] 47467- 6491 13 Jul, 2017 [facility] [id number] [place] [address] 49989- 4706 12 Jul, 2017 Dysuria R30.0 ; Routine gynecological examination Z01.419 and Screening breast examination Z12.31 [facility] [id number] [place] [address] 53001- 8126 12 Jul, 2017 Generalized anxiety disorder F41.1 and Major depressive disorder, recurrent episode, moderate F33.1 [facility] [id number] [place] [address] 41698- 4719 08 Jul, 2017 [facility] [address] [place] [address]- 8732 Jun, Generalized anxiety disorder F41.1 and Major depressive disorder, recurrent episode, moderate F33.1 [facility] [id number] [place] [address] 53947- 5007 Jun, Other chronic pain G89.29 [facility] [address] [place] [address] [id number] May, Dental caries K02.9 [facility] [id number] [place] [address] 94259- 5539 May, Generalized anxiety disorder F41.1 and Major depressive disorder, recurrent episode, moderate F33.1 [facility] [id number] [place] [address] [id number] May, Dental examination Z01.20 [facility] [id number] [place] [address] 57874- 6545 March, [facility] [id number] [place] [address] 17093- 1685 March, Generalized anxiety disorder F41.1 and Major depressive disorder, recurrent episode, moderate F33.1 [facility] [address] [place] [address] 95388- 7307 March, Encounter for annual physical exam Z00.00 and Other chronic pain G89.29 [facility] [address] [address]- 7791 Jan, Generalized anxiety disorder F41.1 and Major depressive disorder, recurrent episode, moderate F33.1 [facility] [address] [place] [address] 93250- 9586 Jan, [facility] [id number] [place] [address] 50434- 6987 Dec, Generalized anxiety disorder F41.1 and Major depressive disorder, recurrent episode, moderate F33.1 [facility] [address] [place] [address] 99226- 1352 Dec, Generalized anxiety disorder F41.1 and Major depressive disorder, recurrent episode, moderate F33.1 [facility] [id number] [place] [address] 11068- 8986 Dec, [facility] [id number] [place] [address] 54766- 6860 Dec, Generalized anxiety disorder F41.1 and Major depressive disorder, recurrent episode, moderate F33.1 [facility] [id number] [place] [address] 32482- 5199 Dec, Diarrhea, unspecified type R19.7 ; Irritable bowel syndrome with diarrhea K58.0 and Alkaline phosphatase elevation R74.8 [facility] [id number] [place] [address] 78138- 3031 Dec, Diarrhea, unspecified type R19.7 and Alkaline phosphatase elevation R74.8 [facility] [address] 23814- 7777 Dec, Generalized anxiety disorder F41.1 and Major depressive disorder, recurrent episode, moderate F33.1 [facility] [id number] [place] [address] 26270- 3754 Dec, Low back pain M54.5 [facility] [id number] [place] [address] 67060- 0995 Dec, Generalized anxiety disorder F41.1 and Major depressive disorder, recurrent episode, moderate F33.1 [facility] [id number] [place] [address] 96823- 0431 Dec, Irritable bowel syndrome with diarrhea K58.0 and Diarrhea, unspecified type R19.7 [facility] [address] 48249- 9762 Dec, [facility] [id number] [place] [address] 18106- 6749 Dec, Generalized anxiety disorder F41.1 and Major depressive disorder, recurrent episode, moderate F33.1 [facility] [id number] [place] [address] 04912 -0400 Nov, Cough R05 ; Viral illness B34.9 and Chronic diarrhea K52.9 [facility] [address] 59539- 0506 Nov, Generalized anxiety disorder F41.1 and Major depressive disorder, recurrent episode, moderate F33.1 [facility] [address] 10711- 6783 Nov, Encounter for Depo-Provera contraception Z30.42 [facility] [address] 62115- 6377 Nov, Generalized anxiety disorder F41.1 and Major depressive disorder, recurrent episode, moderate F33.1 [facility] [address] 51147- 9100 Nov, Low back pain M54.5 [facility] [address] 02680- 4019 Oct, Generalized anxiety disorder F41.1 and Major depressive disorder, recurrent episode, moderate F33.1 [facility] [address] 70085- 6586 Sep, Low back pain M54.5 and Other chronic pain G89.29 [facility] [address] 39803- 5595 Sep, Generalized anxiety disorder F41.1 and Major depressive disorder, recurrent episode, moderate F33.1 [facility] [address] 57480- 8426 Sep, Encounter for Depo-Provera contraception Z30.42 [facility] [address] 96446- 7512 Jul, [facility] [address] 92261- 6479 Jul, [facility] [id number] [place] [address] 34542- 7077 Jul, Encounter for immunization Z23 [facility] [address] 53135- 1447 Jun, Encounter for Depo-Provera contraception Z30.42 [facility] [id number] [place] [address] 19098- 0987 Jun, Generalized anxiety disorder F41.1 and Major depressive disorder, recurrent episode, moderate F33.1 [facility] [id number] [place] [address] 45183- 2573 May, Generalized anxiety disorder F41.1 and Major depressive disorder, recurrent episode, moderate F33.1 [facility] [id number] [place] [address] 57971- 4406 Apr, Generalized anxiety disorder F41.1 and Major depressive disorder, recurrent episode, moderate F33.1 [facility] [id number] [place] [address] 10149- 2328 March, Encounter for Depo-Provera contraception Z30.42 [facility] [id number] [place] [address] 33044- 5039 March, Generalized anxiety disorder F41.1 and Major depressive disorder, recurrent episode, moderate F33.1 [facility] [id number] [place] [address] 05182- 0224 Jan, Generalized anxiety disorder F41.1 and Major depressive disorder, recurrent episode, moderate F33.1 [facility] [id number] [place] [address] 88026- 8702 Jan, [facility] [id number] [place] [address] 95041 -2852 Jan, Oral infection K12.2 [facility] [id number] [place] [address] 09177- 1399 Jan, Tobacco abuse Z72.0 and Hypokalemia E87.6 [facility] [address] [place] [address] 70203- 0510 Jan, [facility] [id number] [place] [address] 22294- 6694 Dec, Screening, lipid Z13.220 and Hypokalemia E87.6 [facility] [id number] [place] [address] 53758- 9719 Dec, Screening, lipid Z13.220 ; Screening for diabetes mellitus Z13.1 and Tobacco abuse Z72.0 [place] [id number] [place] [address] 30727- 4172 Dec, Generalized anxiety disorder F41.1 and Major depressive disorder, recurrent episode, moderate F33.1 [place] [id number] [place] [address] 64332- 9062 Dec, Routine follow-up Z39.2 ; Encounter for Depo- Provera contraception Z30.42 ; Atyp squam cell of undet signfc cyto smr crvx ( ASC-US) R87.610 and Cervical high risk human papillomavirus (HPV) DNA test positive R87.810 [place] [id number] [place] [address] 58830- 0511 08 Dec, 2015 Generalized anxiety disorder F41.1 and Major depressive disorder, recurrent episode, moderate F33.1 [address] [place] [address] 95143- 6181 Nov, Unspecified high-risk O09.90 and 39 weeks gestation of Z3A.39 [place] [id number] [place] [address] 56260- 2727 Nov, Unspecified high-risk O09.90 and 38 weeks gestation of Z3A.38 [facility] [id number] [place] [address] 43391- 4117 Nov, Unspecified high-risk O09.90 ; Dental infection K04.7 and 37 weeks gestation of Z3A.[id number] [place] [address] 46600- 0034 Oct, screening for streptococcus B Z36 ; 36 weeks gestation of Z3A.36 and Breech presentation, not applicable or unspecified fetus O32.1XX0 [facility] [id number] [place] [address] 48649- 9536 Oct, Unspecified high-risk O09.90 and 34 weeks gestation of Z3A.34 [facility] [address] 82542- 4027 Oct, 32 weeks gestation of Z3A.32 and Unspecified high- risk O09.90 [facility] [address] 41929- 3499 Sep, Encounter for immunization Z23 ; Unspecified high-risk O09.90 and 30 weeks gestation of Z3A.30 [facility] [address] 29809- 2089 Sep, Generalized anxiety disorder F41.1 and Major depressive disorder, recurrent episode, moderate F33.1 [facility] [address] 79841- 9700 Aug, Unspecified high-risk O09.90 [facility] [id number] [place] [address] 27282- 6330 Aug, Unspecified high-risk O09.90 [facility] [id number] [place] [address] 93593- 0196 Aug, Dental infection K04.7 [facility] [address] 30709- 1305 Aug, Dysuria R30.0 [facility] [id number] [place] [address] 63554- 7184 Aug, Dysuria R30.0 [facility] [address] 11302- 9044 Jul, Influenza vaccine administered V04.81 [facility] [address] [address]- 9367 Jul, Unspecified high-risk V23.9 [facility] [address] [place] [address] 01438- 9625 Jul, Unspecified high-risk V23.9 and ASCUS with positive high risk HPV 796.9 [facility] [id number] [place] [address] 85739- 0144 Jul, [facility] [address] [place] [address] 16329- 2327 Jun, [facility] [id number] [place] [address] 81919- 5761 Jun, Unspecified high-risk V23.9 ; Pap test, as part of routine gynecological examination V76.2 and Screen for STD (sexually transmitted disease) V74.5 [facility] [address] [address]- 4381 Jun, test positive V72.42 ; Unspecified high-risk V23.9 ; UTI in 646.60 and Vomiting 643.90 [place] [address] [address]- 9020 Jun, [facility] [address] [address]- 9227 Jun, [facility] [address] [place] [address] 42656- 3189 Jun, [place] [address] [place] [address] 88533- 4821 May, [facility] [id number] [place] [address] 38603- 4537 Apr, [facility] [address] [place] [address] 73285- 7916 Apr, Absence of menstruation 626.0 [facility] [place] [facility] [address] [id number] [place] [address]- 3833 14 Jan, 2015 [facility] [place] [facility] [address] [id number] [place] [address]- 0350 Jan, [facility] [place] [facility] [address] [id number] [place] [address]- 8994 Dec, [facility] [place] [facility] [address] [id number] [place] [address]- 7538 Dec, [facility] [place] [facility] [address] [id number] [place] [address]- 9741 Dec, [facility] [place] [facility] [address] [id number] [place] [address]- 1635 Dec, [facility] [place] [facility] [address] [facility] [id number] [place] [address]- 7683 Nov, [facility] [place] [facility] [address] [id number], [place] [address]- 8142 Nov, [facility] [place] [facility] [address] [facility] [id number] [place] [address]- 2416 Nov, [facility] [place] [facility] [address] [facility] [id number], [place] [address]- 1431 Nov, [facility] [place] [facility] [address] [facility] [id number], [place] [address]- 6608 Nov, [facility] [place] [facility] [address] [id number], [place] [address]- 0213 Nov, [facility] [place] [facility] [address] [id number] [place] [address]- 3715 Nov, [facility] [place] [facility] [address] [id number], [place] [address]- 9885 Nov, [facility] [place] [facility] [address] [facility] [id number] [place] [address]- 1849 Oct, [facility] [place] [facility] [address] [id number] [place] [address]- 7473 Oct, [facility] [place] [facility] [address] [id number] [place] [address]- 8583 Oct, [facility] [place] [facility] [address] [id number] [place] 0628 Oct, [facility] [place] [facility] [address] [id number] [place] [address]- 9101 Sep, [facility] [place] [facility] [address] [id number] [place] [address]- 2897 Sep, [facility] [place] [facility] [address] [id number] [place] 2885 Jul, [facility] [place] [facility] [address] [id number] [place] [address]- 9075 Jul, [facility] [place] [facility] [address] [id number] [place] [address]- 5346 Apr, [facility] [place] [facility] [address] [id number] [place] [address]- 0147 Apr, [facility] [place] [facility] [address] [id number] [place] [address]- 3584 March, [facility] [place] [facility] [address] [id number] [place] [address]- 8485 March, [facility] [place] [facility] [address] [id number] [place] [address]- 3841 March, [facility] [place] [facility] [address] [id number] [place] [address]- 0736 March, [facility] [place] [facility] [address] [id number] [place] [address]- 3244 Nov, [facility] [place] [facility] [address] [id number] [place] 5419 Nov, [facility] [place] [facility] [address] [id number] [place] [address]- 1038 Nov, [facility] [place] [facility] [address] [id number] [place] [address]- 6352 Nov, [facility] [address] [id number] [place] [address]- 7337 Nov, [facility] [address] [id number] [place] [address]- 4173 Nov, [facility] [address] [id number] [place] [address]- 3685 Nov, [facility] [address] [id number] [place] [address]- 2906 Nov, [facility] [address] [id number] [place] [address]- 4495 Nov, [facility] [address] [id number] [place] [address]- 5354 Nov, [facility] [address] [id number] [place] [address]- 9704 Nov, [facility] [address] [id number] [place] [address]- 7158 Oct, [facility] [address] [id number] [place] [address]- 3126 Oct, [facility] [address] [id number] [place] [address]- 9602 16 Oct, 2013 [facility] [address] [id number] [place] [address]- 0878 13 Oct, 2013 [facility] [address] [id number] [place] [address]- 3644 Oct, [facility] [place] [facility] [address] [id number] [place] [address]- 4951 12 Oct, 2013 [facility] [place] [facility] [address] [id number] [place] [address]- 5018 11 Oct, 2013 [facility] [address] [id number] [place] [address]- 2709 Oct, [facility] [place] [facility] [address] [id number] [place] [address]- 7089 Oct, [facility] [place] [facility] [address] [id number] [place] [address]- 0751 Oct, [facility] [place] [facility] [address] [id number] [place] 1009 Oct, [facility] [place] [facility] [address] [id number] [place] 9633 Oct, [facility] [place] [facility] [address] [id number] [place] [address]- 9171 Sep, [facility] [place] [facility] [address] [id number] [place] [address]- 6918 Sep, [facility] [place] [facility] [address] [id number] [place] 2261 Sep, [facility] [place] [facility] [address] [id number] [place] [address]- 3618 Sep, [facility] [place] [facility] [address] [id number] [place] [address]- 1944 Aug, [facility] [place] [facility] [address] [id number] [place] [address] Aug, [facility] [place] [facility] [address] [id number], [place] [address] Aug, [facility] [place] [facility] [address] [id number], [place] [address] Aug, [facility] [place] [facility] [address] [id number] [place] [address] Jun, [facility] [place] [facility] [address] [id number], [place] [address] Jun, [facility] [place] [facility] [address] [id number] [place] [address] Apr, [facility] [place] [facility] [address] [id number] [place] [address] 14 Mar, 2013 [facility] [address] [id number] [place] [address] 17 Jan, 2013 [facility] [address] [id number] [place] [address] 16 Jan, 2013 [facility] [address] [id number] [place] [address] 15 Jan, 2013 [facility] [address] [id number] [place] [address] 11 Jan, 2013 [facility] [address] [id number] [place] [address] Dec, [facility] [address] [id number] [place] [address] Dec, [facility] [address] [id number] [place] [address] Dec, [facility] [address] [id number] [place] [address] Dec, [facility] [address] [id number] [place] [address] Oct, [facility] [address] [id number] [place] [address] Oct, [facility] [address] [id number] [place] [address] Oct, [facility] [address] [id number] [place] [address] Oct, [facility] [place] [facility] [address] [id number] [place] [address] Oct, [facility] [place] [facility] [address] [id number] [place] [address] Oct, [facility] [address] [id number] [place] [address] Sep, [facility] [place] [facility] [address] [id number] [place] [address] Sep, [facility] [place] [facility] [address] [id number] [place] [address] Aug, [facility] [place] [facility] [address] [id number] [place] [address] Aug, [facility] [place] [facility] [address] [id number] [place] [address] Aug, [facility] [place] [facility] [address] [id number] [place] [address] Jul, [facility] [place] [facility] [address] [id number] [place] [address] Jul, [facility] [place] [facility] [address] [id number] [place] [address] Jul, [facility] [place] [facility] [address] [id number] [place] [address] Jul, [facility] [place] [facility] [address] [id number] [place] [address] Jun, [facility] [place] [facility] [address] [id number] [place] [address] Jun, [facility] [place] [facility] [address] [id number] [place] [address] Jun, [facility] [place] [facility] [address] [id number], [place] [address] Jun, [facility] [place] [facility] [address] [id number] [place] [address] Jun, [facility] [place] [facility] [address] [id number] [place] [address] May, [facility] [place] [facility] [address] [id number] [place] [address] May, [facility] [place] [facility] [address] [id number] [place] [address] Apr, [facility] [place] [facility] [address] [id number] [place] [address] Apr, [facility] [place] [facility] [address] [id number] [place] [address] Apr, [facility] [place] [facility] [address] [id number] [place] [address] March, [facility] [place] [facility] [address] [id number] [place] [address] March, [facility] [place] [facility] [address] [id number] [place] [address] March, [facility] [place] [facility] [address] [id number] [place] [address] Jan, [facility] [place] [facility] [address] [id number] [place] [address] Dec, [facility] [place] [facility] [address] [id number] [place] [address] Dec, [facility] [place] [facility] [address] [id number] [place] [address] Dec, [facility] [place] [facility] [address] [facility] [id number] [place] [address] Dec, [facility] [place] [facility] [address] [id number] [place] [address] Dec, [facility] [place] [facility] [address] [id number] [place] [address] 16 Dec, 2011 [facility] [place] [facility] [address] [id number] [place] [address] Dec, [facility] [place] [facility] [address] [id number] [place] [address] 29 Dec, 2011 [facility] [place] [facility] [address] [id number] [place] [address] Dec, [facility] [place] [facility] [address] [id number] [place] [address]- [address] Dec, [facility] [place] [facility] [address] [id number] [place] [address]- [address] 13 Dec, 2011 [facility] [place] [facility] [address] [id number] [place] [address]- [address] 11 Dec, 2011 [facility] [place] [facility] [address] [id number] [place] [address] Dec, [facility] [place] [facility] [address] [id number] [place] [address] 30 Nov, 2011 [facility] [place] [facility] [address] [id number] [place] [address] Nov, [facility] [place] [facility] [address] [id number] [place] [address] Nov, [facility] [place] [facility] [address] [id number] [place] [address] Nov, [facility] [place] [facility] [address] [id number] [place] [address] Nov, [facility] [place] [facility] [address] [id number] [place] [address] Nov, [facility] [place] [facility] [address] [id number] [place] [address] Nov, [facility] [place] [facility] [address] [id number] [place] [address]- [address] Nov, [facility] [place] [facility] [address] [id number] [place] [address]- [address] Oct, [facility] [place] [facility] [address] [id number] [place] [address] Oct, [facility] [place] [facility] [address] [id number] [place] [address] Oct, [facility] [place] [facility] [address] [id number], [place] [address] 15 Oct, 2011 [facility] [place] [facility] [address] [id number] [place] [address]- [address] 13 Oct, 2011 [facility] [place] [facility] [address] [id number] [place] [address] 13 Oct, 2011 [facility] [place] [facility] [address] [facility] [id number] [place] [address]- [address] 07 Oct, 2011 [facility] [place] [facility] [address] [id number] [place] [address]- [address] 23 Sep, 2011 [facility] [place] [facility] [address] [id number] [place] [address], [place] [address]- [address] 18 Sep, 2011 [facility] [place] [facility] [address] [id number] [place] [address]- [address] 18 Sep, 2011 [facility] [place] [facility] [address] [facility] [id number], [place] [address] 16 Sep, 2011 [facility] [place] [facility] [address] [id number] [place] [address]- [address] 16 Sep, 2011 [facility] [place] [facility] [address] [facility] [id number] [place] [address]- [address] 08 Sep, 2011 [facility] [place] [facility] [address] [facility] [id number] [place] [address]- [address] Sep, [facility] [place] [facility] [address] [id number], [place] [address] Aug, [facility] [place] [facility] [address] [id number], [place] [address] Aug, [facility] [place] [facility] [address] [id number], [place] [address] Jun, [facility] [place] [facility] [address] [id number] [place] [address] 9[address] Oct, [facility] [place] [facility] [address] [facility] [id number], [place] [address]- [address] 19 Oct, 2010 [facility] [place] [facility] [address] [id number] [place] [address]- 4[address] 08 Oct, 2010 [facility] [place] [facility] [address] [id number] [place] [address]- 4516 16 Dec, 2009 [facility] [place] [facility] [address] [id number] [place] [address] 2546 11 Dec, 2009 [facility] [place] [facility] [address] [id number] [place] [address] 2546 18 Dec, 2009 [facility] [place] [facility] [address] [id number] [place] [address] 2546 11 Dec, 2009 [facility] [place] [facility] [address] [id number] [place] [address]- [address] Nov, [facility] [place] [facility] [address] [id number] [place] [address]- 6584 29 Oct, 2009 [facility] [place] [facility] [address] [id number] [place] [address]- 2656 17 Oct, 2009 [facility] [place] [facility] [address] [id number] [place] [address]- 1249 15 Oct, 2009 [facility] [place] [facility] [address] [id number] [place] [address]- 0913 15 Oct, 2009 [facility] [place] [facility] [address] [id number] [place] [address] 2547 24 Sep, 2009 [facility] [place] [facility] [address] [id number], [place] [address]46 03 Sep, 2009 [facility] [place] [facility] [address] [id number] [place] [address] 2544 29 Aug, 2009 [facility] [place] [facility] [address] [id number] [place] [address] 2546 23 Aug, 2009 [facility] [place] [facility] [address] [id number] [place] [address] 2546 13 Aug, 2009 [facility] [place] [facility] [address] [id number] [place] [address]- [address] Aug, [facility] [address] [facility] [id number] [place] [address]- [address] Aug, [facility] [address] [facility] [id number] [place] [address]- [address] Jun, IMMUNIZATIONS No Known Immunizations SOCIAL HISTORY Never Assessed REASON FOR VISIT Refill request PLAN OF CARE VITAL SIGNS MEDICATIONS Medication Instructions Dosage Frequency Start Date End Date Duration Status Viibryd 20 mg Orally Once a day 1 tablet with food 24h 30 days Active RESULTS No Results PROCEDURES No Known procedures INSTRUCTIONS MEDICATIONS ADMINISTERED No Known Medications MEDICAL (GENERAL) HISTORY Type Description Date Medical History Tobacco abuse Surgical History tonsillectomy age 15 Surgical History cholecystectomy 2009 Surgical History colonoscopy 3 times Surgical History 4 natural births Hospitalization History Hospitalization for surgery only
--- OUTSIDE RECORDS SUMMARY | 2018-08-17 18:06 | XMS REPORT ---
Demographics Address [address] [place] [address] Preferred Language Unknown Marital Status Unknown Latter Day Affiliation Unknown Race Unknown Ethnic Group Unknown Author Author CARLOSFABY GRIGGS [facility] Address [address] [place] [address] Care Team Providers Care Can Cleaner Name Role Phone FABY GONZALEZ Unavailable PROBLEMS Type Condition ICD9-CM Code QDY98-CH Code Onset Dates Condition Status SNOMED Code Problem Generalized anxiety disorder F41.1 Active 70467939 Problem Other chronic pain G89.29 Active 33495455 Problem History of methamphetamine abuse Z87.898 Active 823324481 Problem Cervical high risk HPV (human papillomavirus) test positive R87.810 Active 002524150 Problem Atyp squam cell of undet signfc cyto smr crvx (ASC-US) R87.610 Active 523172732 Problem Major depressive disorder, recurrent episode, moderate F33.1 Active 795169810 Problem BMI 36.0-36.9,adult Z68.36 Active 925897252 Problem BMI 39.0-39.9,adult Z68.39 Active 875291673 Problem Alkaline phosphatase elevation R74.8 Active 416010850 Problem Irritable bowel syndrome with diarrhea K58.0 Active 665571071 Problem Recurrent major depressive disorder, in partial remission F33.41 Active 97198781 Problem Anxiety F41.9 Active 72684039 ALLERGIES No Information ENCOUNTERS Encounter Location Date Diagnosis [facility] [id number] [place] [address] 14335- 9040 May, Generalized anxiety disorder F41.1 and Major depressive disorder, recurrent episode, moderate F33.1 [facility] [id number] [place] [address] 25047- 5758 Apr, Anxiety F41.9 [facility] [id number] [place] [address] 93623- 2728 Apr, [facility] [id number] [place] [address] 87224- 6046 Apr, Weight loss counseling, encounter for Z71.3 and BMI 36.0- 36.9,adult Z68.36 [facility] [id number] [place] [address] 46912- 2626 04 Apr, 2018 Anxiety F41.9 [facility] [id number] [place] [address] 22743- 9151 March, Other chronic pain G89.29 [facility] [id number] [place] [address] 28040- 7810 March, [facility] [id number] [place] [address] 54899- 3540 March, Generalized anxiety disorder F41.1 and Major depressive disorder, recurrent episode, moderate F33.1 [facility] [id number] [place] [address] 83809- 1288 Jan, Encounter for Depo-Provera contraception Z30.42 [facility] [id number] [place] [address] 04934- 2763 Jan, Generalized anxiety disorder F41.1 and Major depressive disorder, recurrent episode, moderate F33.1 [facility] [id number] [place] [address] 24391- 7676 Dec, Anxiety F41.9 and Recurrent major depressive disorder, in partial remission F33.41 [facility] [id number] [place] [address] 10549- 5950 Nov, [facility] [id number] [place] [address] 58742- 4431 Nov, Other chronic pain G89.29 ; Encounter for surveillance of injectable contraceptive Z30.42 ; BMI 39.0-39.9,adult Z68.39 and Encounter for Depo-Provera contraception Z30.42 [facility] [id number] [place] [address] 47884- 3274 Sep, Anxiety F41.9 and Recurrent major depressive disorder, in partial remission F33.41 [facility] [id number] [place] [address] 15323- 3714 Aug, Generalized anxiety disorder F41.1 and Major depressive disorder, recurrent episode, moderate F33.1 [facility] [id number] [place] [address] 64319- 4163 Aug, [facility] [id number] [place] [address] 18065- 6871 Aug, Anxiety F41.9 and Major depressive disorder, recurrent episode, moderate F33.1 [facility] [id number] [place] [address] 73481- 1580 25 Jul, 2017 Encounter for immunization Z23 [facility] [id number] [place] [address] 80890- 9616 19 Jul, 2017 [facility] [id number] [place] [address] 96393- 8467 Jul, [facility] [id number] [place] [address] 98748- 2699 14 Jul, 2017 Alkaline phosphatase elevation R74.8 [facility] [address] 72261- 6150 13 Jul, 2017 Encounter for annual physical exam Z00.00 [facility] [id number] [place] [address] 77446- 4504 Jul, [facility] [id number] [place] [address] 44986- 6492 12 Jul, 2017 Routine gynecological examination Z01.419 ; Dysuria R30.0 and Screening breast examination Z12.31 [facility] [id number] [place] [address] 59582- 3854 12 Jul, 2017 Generalized anxiety disorder F41.1 and Major depressive disorder, recurrent episode, moderate F33.1 [facility] [id number] [place] [address] 24946- 7437 08 Jul, 2017 [facility] [address] [place] [address] 3649 Jun, Generalized anxiety disorder F41.1 and Major depressive disorder, recurrent episode, moderate F33.1 [facility] [id number] [place] [address] 96256- 2515 Jun, Other chronic pain G89.29 [facility] [id number] [place] [address] [id number] May, Dental caries K02.9 [facility] [id number] [place] [address] 92612- 2924 May, Generalized anxiety disorder F41.1 and Major depressive disorder, recurrent episode, moderate F33.1 [facility] [id number] [place] [address] [id number] May, Dental examination Z01.20 [facility] [id number] [place] [address] 40996- 4200 March, [facility] [id number] [place] [address] 48397- 9598 March, Generalized anxiety disorder F41.1 and Major depressive disorder, recurrent episode, moderate F33.1 [facility] [id number] [place] [address] 12741- 8512 March, Encounter for annual physical exam Z00.00 and Other chronic pain G89.29 [facility] [address] [address]- 6387 Jan, Generalized anxiety disorder F41.1 and Major depressive disorder, recurrent episode, moderate F33.1 [facility] [id number] [place] [address] 58816- 6479 Jan, [facility] [id number] [place] [address] 74181- 1681 Dec, Generalized anxiety disorder F41.1 and Major depressive disorder, recurrent episode, moderate F33.1 [facility] [id number] [place] [address] 43588- 0057 Dec, Generalized anxiety disorder F41.1 and Major depressive disorder, recurrent episode, moderate F33.1 [facility] [id number] [place] [address] 57296- 3084 Dec, [facility] [id number] [place] [address] 24080- 0312 Dec, Generalized anxiety disorder F41.1 and Major depressive disorder, recurrent episode, moderate F33.1 [facility] [id number] [place] [address] 96640- 2146 Dec, Diarrhea, unspecified type R19.7 ; Irritable bowel syndrome with diarrhea K58.0 and Alkaline phosphatase elevation R74.8 [facility] [id number] [place] [address] 77610- 2900 Dec, Diarrhea, unspecified type R19.7 and Alkaline phosphatase elevation R74.8 [facility] [address] 49575- 6779 Dec, Generalized anxiety disorder F41.1 and Major depressive disorder, recurrent episode, moderate F33.1 [facility] [id number] [place] [address] 37087- 8921 Dec, Low back pain M54.5 [facility] [id number] [place] [address] 49224- 1132 Dec, Generalized anxiety disorder F41.1 and Major depressive disorder, recurrent episode, moderate F33.1 [facility] [id number] [place] [address] 91903- 4443 Dec, Irritable bowel syndrome with diarrhea K58.0 and Diarrhea, unspecified type R19.7 [facility] [address] 92963- 8251 Dec, [facility] [id number] [place] [address] 17955- 1391 Dec, Generalized anxiety disorder F41.1 and Major depressive disorder, recurrent episode, moderate F33.1 [facility] [id number] [place] [address] 80977 -9703 Nov, Cough R05 ; Viral illness B34.9 and Chronic diarrhea K52.9 [facility] [address] 23388- 4789 Nov, Generalized anxiety disorder F41.1 and Major depressive disorder, recurrent episode, moderate F33.1 [facility] [address] 41015- 8071 Nov, Encounter for Depo-Provera contraception Z30.42 [facility] [address] 14063- 5884 Nov, Generalized anxiety disorder F41.1 and Major depressive disorder, recurrent episode, moderate F33.1 [facility] [address] 67733- 8089 Nov, Low back pain M54.5 [facility] [address] 03794- 0952 Oct, Generalized anxiety disorder F41.1 and Major depressive disorder, recurrent episode, moderate F33.1 [facility] [address] 08067- 7893 Sep, Low back pain M54.5 and Other chronic pain G89.29 [facility] [address] 84026- 8176 Sep, Generalized anxiety disorder F41.1 and Major depressive disorder, recurrent episode, moderate F33.1 [facility] [address] 37565- 9767 Sep, Encounter for Depo-Provera contraception Z30.42 [facility] [address] 00473- 8091 Jul, [facility] [address] 61786- 8152 Jul, [facility] [id number] [place] [address] 93179- 4753 Jul, Encounter for immunization Z23 [facility] [address] 84581- 4066 Jun, Encounter for Depo-Provera contraception Z30.42 [facility] [id number] [place] [address] 89016- 9857 Jun, Generalized anxiety disorder F41.1 and Major depressive disorder, recurrent episode, moderate F33.1 [facility] [id number] [place] [address] 35189- 1329 May, Generalized anxiety disorder F41.1 and Major depressive disorder, recurrent episode, moderate F33.1 [facility] [id number] [place] [address] 10490- 0879 Apr, Generalized anxiety disorder F41.1 and Major depressive disorder, recurrent episode, moderate F33.1 [facility] [id number] [place] [address] 68656- 9290 March, Encounter for Depo-Provera contraception Z30.42 [facility] [id number] [place] [address] 92187- 3778 March, Generalized anxiety disorder F41.1 and Major depressive disorder, recurrent episode, moderate F33.1 [facility] [id number] [place] [address] 20242- 3671 Jan, Generalized anxiety disorder F41.1 and Major depressive disorder, recurrent episode, moderate F33.1 [facility] [id number] [place] [address] 85917- 5694 Jan, [facility] [id number] [place] [address] 46954 -8756 Jan, Oral infection K12.2 [facility] [id number] [place] [address] 81913- 2584 Jan, Tobacco abuse Z72.0 and Hypokalemia E87.6 [facility] [id number] [place] [address] 97425- 8926 Jan, [facility] [id number] [place] [address] 46120- 9214 Dec, Screening, lipid Z13.220 and Hypokalemia E87.6 [facility] [id number] [place] [address] 25345- 2113 Dec, Screening, lipid Z13.220 ; Screening for diabetes mellitus Z13.1 and Tobacco abuse Z72.0 [place] [facility] [id number] [place] [address] 62508- 0200 Dec, Generalized anxiety disorder F41.1 and Major depressive disorder, recurrent episode, moderate F33.1 [place] [id number] [place] [address] 45805- 9786 Dec, Routine follow-up Z39.2 ; Encounter for Depo- Provera contraception Z30.42 ; Atyp squam cell of undet signfc cyto smr crvx ( ASC-US) R87.610 and Cervical high risk human papillomavirus (HPV) DNA test positive R87.810 [facility] [id number] [place] [address] 24837- 2126 08 Dec, 2015 Generalized anxiety disorder F41.1 and Major depressive disorder, recurrent episode, moderate F33.1 [address] [place] [address] 70378- 9345 Nov, Unspecified high-risk O09.90 and 39 weeks gestation of Z3A.39 [facility] [id number] [place] [address] 62963- 8163 Nov, Unspecified high-risk O09.90 and 38 weeks gestation of Z3A.38 [facility] [id number] [place] [address] 91403- 2296 Nov, Unspecified high-risk O09.90 ; Dental infection K04.7 and 37 weeks gestation of Z3A.[id number] [place] [address] 69915- 4057 Oct, screening for streptococcus B Z36 ; 36 weeks gestation of Z3A.36 and Breech presentation, not applicable or unspecified fetus O32.1XX0 [facility] [id number] [place] [address] 12831- 1928 Oct, Unspecified high-risk O09.90 and 34 weeks gestation of Z3A.34 [facility] [address] 49823- 4171 Oct, 32 weeks gestation of Z3A.32 and Unspecified high- risk O09.90 [facility] [address] 22155- 1850 Sep, Unspecified high-risk O09.90 ; Encounter for immunization Z23 and 30 weeks gestation of Z3A.30 [facility] [address] 20168- 9631 Sep, Generalized anxiety disorder F41.1 and Major depressive disorder, recurrent episode, moderate F33.1 [facility] [address] 47024- 9826 Aug, Unspecified high-risk O09.90 [facility] [id number] [place] [address] 64275- 5630 Aug, Unspecified high-risk O09.90 [facility] [id number] [place] [address] 35174- 5286 Aug, Dental infection K04.7 [facility] [address] 41387- 0286 Aug, Dysuria R30.0 [facility] [id number] [place] [address] 61799- 1082 Aug, Dysuria R30.0 [facility] [address] 67662- 0931 Jul, Influenza vaccine administered V04.81 [facility] [address] [address]- 2286 Jul, Unspecified high-risk V23.9 [facility] [id number] [place] [address] 51512- 8514 Jul, Unspecified high-risk V23.9 and ASCUS with positive high risk HPV 796.9 [facility] [id number] [place] [address] 73665- 6443 Jul, [facility] [id number] [place] [address] 27419- 8338 Jun, [facility] [id number] [place] [address] 74461- 8228 Jun, Unspecified high-risk V23.9 ; Pap test, as part of routine gynecological examination V76.2 and Screen for STD (sexually transmitted disease) V74.5 [facility] [address] [address]- 3322 Jun, test positive V72.42 ; Unspecified high-risk V23.9 ; UTI in 646.60 and Vomiting 643.90 [facility] [address] [address]- 9147 Jun, [facility] [address] [address]- 5438 Jun, [facility] [id number] [place] [address] 48340- 9614 Jun, [facility] [id number] [place] [address] 90165- 3940 May, [facility] [id number] [place] [address] 51732- 2447 Apr, [facility] [id number] [place] [address] 55164- 1576 Apr, Absence of menstruation 626.0 [facility] [place] [facility] [address] [id number] [place] [address]- 1093 14 Jan, 2015 [facility] [place] [facility] [address] [id number] [place] [address]- 4159 Jan, [facility] [place] [facility] [address] [id number] [place] [address]- 3879 Dec, [facility] [place] [facility] [address] [id number] [place] [address]- 2554 Dec, [facility] [place] [facility] [address] [id number] [place] [address]- 8843 Dec, [facility] [place] [facility] [address] [id number] [place] [address]- 4303 Dec, [facility] [place] [facility] [address] [facility] [id number] [place] [address]- 2124 Nov, [facility] [place] [facility] [address] [id number] [address]- 3633 Nov, [facility] [place] [facility] [address] [facility] [id number] [place] [address]- 8356 Nov, [facility] [place] [facility] [address] [facility] [id number] [address]- 5052 Nov, [facility] [place] [facility] [address] [facility] [id number] [address]- 8678 Nov, [facility] [place] [facility] [address] [id number], [place] [address]- 3360 Nov, [facility] [place] [facility] [address] [id number] [place] [address]- 9948 Nov, [facility] [place] [facility] [address] [id number] [address]- 4337 Nov, [facility] [place] [facility] [address] [facility] [id number] [place] [address]- 3285 Oct, [facility] [place] [facility] [address] [id number] [place] [address]- 9293 Oct, [facility] [place] [facility] [address] [id number] [place] [address]- 7530 Oct, [facility] [place] [facility] [address] [id number] [place]- 2426 Oct, [facility] [place] [facility] [address] [id number] [place] [address]- 3672 Sep, [facility] [place] [facility] [address] [id number] [place] [address]- 4400 Sep, [facility] [place] [facility] [address] [id number] [place] 0977 Jul, [facility] [place] [facility] [address] [id number] [place] [address]- 0916 Jul, [facility] [place] [facility] [address] [id number] [place] [address]- 7404 Apr, [facility] [place] [facility] [address] [id number] [place] [address]- 3372 Apr, [facility] [place] [facility] [address] [id number] [place] [address]- 7230 March, [facility] [place] [facility] [address] [id number] [place] [address]- 1051 March, [facility] [place] [facility] [address] [id number] [place] [address]- 9835 March, [facility] [place] [facility] [address] [id number] [place] [address]- 1756 March, [facility] [place] [facility] [address] [id number] [place] [address]- 8500 Nov, [facility] [place] [facility] [address] [id number] [place] 3213 Nov, [facility] [place] [facility] [address] [id number] [place] [address]- 2318 Nov, [facility] [place] [facility] [address] [id number] [place] [address]- 4767 Nov, [facility] [address] [id number] [place] [address]- 4543 Nov, [facility] [address] [id number] [place] [address]- 5012 Nov, [facility] [address] [id number] [place] [address]- 8748 Nov, [facility] [address] [id number] [place] [address]- 5719 Nov, [facility] [address] [id number] [place] [address]- 8102 Nov, [facility] [address] [id number] [place] [address]- 6564 Nov, [facility] [address] [id number] [place] [address]- 8290 Nov, [facility] [address] [id number] [place] [address]- 9813 Oct, [facility] [address] [id number] [place] [address]- 2206 Oct, [facility] [address] [id number] [place] [address]- 2202 16 Oct, 2013 [facility] [address] [id number] [place] [address]- 5099 13 Oct, 2013 [facility] [address] [id number] [place] [address]- 7546 Oct, [facility] [place] [facility] [address] [id number] [place] [address]- 9226 12 Oct, 2013 [facility] [place] [facility] [address] [id number] [place] [address]- 1800 11 Oct, 2013 [facility] [address] [id number] [place] [address]- 1403 Oct, [facility] [place] [facility] [address] [id number] [place] [address]- 9539 Oct, [facility] [place] [facility] [address] [id number] [place] [address]- 3671 Oct, [facility] [place] [facility] [address] [id number] [place] 4326 Oct, [facility] [place] [facility] [address] [id number] [place] 2961 Oct, [facility] [place] [facility] [address] [id number] [place] [address]- 9046 Sep, [facility] [place] [facility] [address] [id number] [place] [address]- 1749 Sep, [facility] [place] [facility] [address] [id number] [place] 8362 Sep, [facility] [place] [facility] [address] [id number] [place] [address] Sep, [facility] [place] [facility] [address] [id number] [place] [address] Aug, [facility] [place] [facility] [address] [id number] [place] [address] Aug, [facility] [place] [facility] [address] [id number] [address] Aug, [facility] [place] [facility] [address] [id number], [place] [address] Aug, [facility] [place] [facility] [address] [id number] [place] [address] Jun, [facility] [place] [facility] [address] [id number], [place] [address] Jun, [facility] [place] [facility] [address] [id number] [place] [address] Apr, [facility] [place] [facility] [address] [id number] [place] [address] 14 Mar, 2013 [facility] [address] [id number] [place] [address] 17 Jan, 2013 [facility] [address] [id number] [place] [address] 16 Jan, 2013 [facility] [address] [id number] [place] [address] 15 Jan, 2013 [facility] [address] [id number] [place] [address] 11 Jan, 2013 [facility] [address] [id number] [place] [address] Dec, [facility] [address] [id number] [place] [address] Dec, [facility] [address] [id number] [place] [address] Dec, [facility] [address] [id number] [place] [address] Dec, [facility] [address] [id number] [place] [address] Oct, [facility] [address] [id number] [place] [address] Oct, [facility] [address] [id number] [place] [address] Oct, [facility] [address] [id number] [place] [address] Oct, [facility] [place] [facility] [address] [id number] [place] [address] Oct, [facility] [place] [facility] [address] [id number] [place] [address] Oct, [facility] [address] [id number] [place] [address] Sep, [facility] [place] [facility] [address] [id number] [place] [address] Sep, [facility] [place] [facility] [address] [id number] [place] [address] Aug, [facility] [place] [facility] [address] [id number] [place] [address] Aug, [facility] [place] [facility] [address] [id number] [place] [address] Aug, [facility] [place] [facility] [address] [id number] [place] [address] Jul, [facility] [place] [facility] [address] [id number] [place] [address] Jul, [facility] [place] [facility] [address] [id number] [place] [address] Jul, [facility] [place] [facility] [address] [id number] [place] [address] Jul, [facility] [place] [facility] [address] [id number] [place] [address] Jun, [facility] [place] [facility] [address] [id number] [place] [address] Jun, [facility] [place] [facility] [address] [id number] [place] [address] Jun, [facility] [place] [facility] [address] [id number] [address] Jun, [facility] [place] [facility] [address] [id number] [place] [address] 1463 Jun, [facility] [place] [facility] [address] [id number] [place] [address] May, [facility] [place] [facility] [address] [id number] [place] [address] May, [facility] [place] [facility] [address] [id number] [place] [address] Apr, [facility] [place] [facility] [address] [id number] [place] [address] Apr, [facility] [place] [facility] [address] [id number] [place] [address] Apr, [facility] [place] [facility] [address] [id number] [place] [address] March, [facility] [place] [facility] [address] [id number] [place] [address] March, [facility] [place] [facility] [address] [id number] [place] [address] March, [facility] [place] [facility] [address] [id number] [place] [address] Jan, [facility] [place] [facility] [address] [id number] [place] [address] Dec, [facility] [place] [facility] [address] [id number] [place] [address] Dec, [facility] [place] [facility] [address] [id number] [place] [address] Dec, [facility] [place] [facility] [address] [facility] [id number] [place] [address] Dec, [facility] [place] [facility] [address] [id number] [place] [address] Dec, [facility] [place] [facility] [address] [id number] [place] [address] 16 Dec, 2011 [facility] [place] [facility] [address] [id number] [place] [address] Dec, [facility] [place] [facility] [address] [id number] [place] [address] 29 Dec, 2011 [facility] [place] [facility] [address] [id number] [place] [address] Dec, [facility] [place] [facility] [address] [id number] [place] [address] Dec, [facility] [place] [facility] [address] [id number] [place] [address] 13 Dec, 2011 [facility] [place] [facility] [address] [id number] [place] [address]- [address] 11 Dec, 2011 [facility] [place] [facility] [address] [id number] [place] [address] Dec, [facility] [place] [facility] [address] [id number] [place] [address] 30 Nov, 2011 [facility] [place] [facility] [address] [id number] [place] [address] Nov, [facility] [place] [facility] [address] [id number] [place] [address] Nov, [facility] [place] [facility] [address] [id number] [place] [address]- [address] Nov, [facility] [place] [facility] [address] [id number] [place] [address]- 6369 Nov, [facility] [place] [facility] [address] [id number] [place] [address]- 4916 Nov, [facility] [place] [facility] [address] [id number] [place] [address] Nov, [facility] [place] [facility] [address] [id number] [place] [address] Nov, [facility] [place] [facility] [address] [id number] [place] [address]- 2942 Oct, [facility] [place] [facility] [address] [id number] [place] [address]- [address] Oct, [facility] [place] [facility] [address] [id number] [place] [address]- 7727 Oct, [facility] [place] [facility] [address] [id number], [place] [address] 15 Oct, 2011 [facility] [place] [facility] [address] [id number] [place] [address]- [address]1 13 Oct, 2011 [facility] [place] [facility] [address] [id number] [place] [address]- [address]856 13 Oct, 2011 [facility] [place] [facility] [address] [facility] [id number] [place] [address]- [address] 07 Oct, 2011 [facility] [place] [facility] [address] [id number] [place] [address]- 2473 23 Sep, 2011 [facility] [place] [facility] [address] [id number] [place] [address], [place] [address]- [address]121 18 Sep, 2011 [facility] [place] [facility] [address] [id number] [place] [address]- 4[address] 18 Sep, 2011 [facility] [place] [facility] [address] [facility] [id number], [place] [address] 16 Sep, 2011 [facility] [place] [facility] [address] [id number] [place] [address]- 0821 16 Sep, 2011 [facility] [place] [facility] [address] [facility] [id number] [place] [address]- 9474 08 Sep, 2011 [facility] [place] [facility] [address] [facility] [id number] [place] [address]- 9944 Sep, [facility] [place] [facility] [address] [id number], [place] [address]66 Aug, [facility] [place] [facility] [address] [id number], [place] [address]- [address] Aug, [facility] [place] [facility] [address] [id number], [place] [address] 0897 Jun, [facility] [place] [facility] [address] [id number] [place] [address]- 1718 Oct, [facility] [place] [facility] [address] [facility] [id number], [place] [address]- [address]75 19 Oct, 2010 [facility] [place] [facility] [address] [id number] [place] [address]- 4049 08 Oct, 2010 [facility] [place] [facility] [address] [id number] [place] [address]- 6966 16 Dec, 2009 [facility] [place] [facility] [address] [id number] [place] [address] 2546 11 Dec, 2009 [facility] [place] [facility] [address] [id number] [place] [address] 2546 18 Dec, 2009 [facility] [place] [facility] [address] [id number] [place] [address] 2546 11 Dec, 2009 [facility] [place] [facility] [address] [id number] [place] [address]- 9206 Nov, [facility] [place] [facility] [address] [id number] [place] [address]- 7404 29 Oct, 2009 [facility] [place] [facility] [address] [id number] [place] [address]- 8286 17 Oct, 2009 [facility] [place] [facility] [address] [id number] [place] [address]- 3843 15 Oct, 2009 [facility] [place] [facility] [address] [id number] [place] [address]- 8018 15 Oct, 2009 [facility] [place] [facility] [address] [id number] [place] [address] 2547 24 Sep, 2009 [facility] [place] [facility] [address] [id number], [place] [address] 2546 03 Sep, 2009 [facility] [place] [facility] [address] [id number] [place] [address] 2549 29 Aug, 2009 [facility] [place] [facility] [address] [id number] [place] [address] 2546 23 Aug, 2009 [facility] [place] [facility] [address] [id number] [place] [address] 2546 13 Aug, 2009 [facility] [place] [facility] [address] [id number] [place] [address]- [address]183 Aug, [facility] [address] [facility] [id number] [place] [address]- 44[address] Aug, [facility] [address] [facility] [id number] [place] [address] Jun, IMMUNIZATIONS No Known Immunizations SOCIAL HISTORY Never Assessed REASON FOR VISIT FYI drug reaction PLAN OF CARE VITAL SIGNS MEDICATIONS Unknown Medications RESULTS No Results PROCEDURES No Known procedures INSTRUCTIONS MEDICATIONS ADMINISTERED No Known Medications MEDICAL (GENERAL) HISTORY Type Description Date Medical History Tobacco abuse Surgical History tonsillectomy age 15 Surgical History cholecystectomy 2009 Surgical History colonoscopy 3 times Surgical History 4 natural births Hospitalization History Hospitalization for surgery only
--- OUTSIDE RECORDS SUMMARY | 2018-08-17 18:07 | XMS REPORT ---
Author Author LARRY HILDA Organization [facility] Address [address] [place] [address] Care Team Providers Care Head Of Quality Name Role Phone ELISEHILDA NASH Unavailable PROBLEMS Type Condition ICD9-CM Code [id number] Code Onset Dates Condition Status SNOMED Code Problem Generalized anxiety disorder F41.1 Active 14890810 Problem Other chronic pain G89.29 Active 94116606 Problem History of methamphetamine abuse Z87.898 Active 765192672 Problem Cervical high risk HPV (human papillomavirus) test positive R87.810 Active 890430690 Problem Atyp squam cell of undet signfc cyto smr crvx (ASC-US) R87.610 Active 679658303 Problem Major depressive disorder, recurrent episode, moderate F33.1 Active 379196810 Problem BMI 36.0-36.9,adult Z68.36 Active 484101234 Problem BMI 39.0-39.9,adult Z68.39 Active 444799791 Problem Alkaline phosphatase elevation R74.8 Active 325003821 Problem Irritable bowel syndrome with diarrhea K58.0 Active 337357320 Problem Recurrent major depressive disorder, in partial remission F33.41 Active 03675685 Problem Anxiety F41.9 Active 57415767 ALLERGIES No Information ENCOUNTERS Encounter Location Date Diagnosis [facility] [id number] [place] [address] 56035- 0021 May, Generalized anxiety disorder F41.1 and Major depressive disorder, recurrent episode, moderate F33.1 [facility] [id number] [place] [address] 39455- 8670 Apr, Anxiety F41.9 [facility] [id number] [place] [address] 57123- 4642 Apr, [facility] [id number] [place] [address] 67197- 5131 Apr, Weight loss counseling, encounter for Z71.3 and BMI 36.0- 36.9,adult Z68.36 [facility] [id number] [place] [address] 91408- 5835 04 Apr, 2018 Anxiety F41.9 [facility] [id number] [place] [address] 45640- 8242 March, Other chronic pain G89.29 [facility] [id number] [place] [address] 65987- 3766 March, [facility] [id number] [place] [address] 44010- 5042 March, Generalized anxiety disorder F41.1 and Major depressive disorder, recurrent episode, moderate F33.1 [facility] [id number] [place] [address] 49457- 0126 Jan, Encounter for Depo-Provera contraception Z30.42 [facility] [id number] [place] [address] 94779- 6349 Jan, Generalized anxiety disorder F41.1 and Major depressive disorder, recurrent episode, moderate F33.1 [facility] [id number] [place] [address] 71100- 9162 Dec, Anxiety F41.9 and Recurrent major depressive disorder, in partial remission F33.41 [facility] [id number] [place] [address] 48749- 7187 Nov, [place] [id number] [place] [address] 78570- 2952 Nov, Other chronic pain G89.29 ; Encounter for surveillance of injectable contraceptive Z30.42 ; BMI 39.0-39.9,adult Z68.39 and Encounter for Depo-Provera contraception Z30.42 [facility] [address] [place] [address] 36883- 8102 Sep, Anxiety F41.9 and Recurrent major depressive disorder, in partial remission F33.41 [facility] [id number] [place] [address] 91968- 3288 Aug, Generalized anxiety disorder F41.1 and Major depressive disorder, recurrent episode, moderate F33.1 [facility] [id number] [place] [address] 74606- 9230 Aug, [facility] [id number] [place] [address] 43630- 7717 Aug, Anxiety F41.9 and Major depressive disorder, recurrent episode, moderate F33.1 [facility] [id number] [place] [address] 35128- 9654 25 Jul, 2017 Encounter for immunization Z23 [facility] [id number] [place] [address] 84377- 0900 19 Jul, 2017 [facility] [id number] [place] [address] 93658- 9582 Jul, [facility] [id number] [place] [address] 75019- 3310 14 Jul, 2017 Alkaline phosphatase elevation R74.8 [facility] [id number] [place] [address] 99480- 3053 13 Jul, 2017 Encounter for annual physical exam Z00.00 [facility] [id number] [place] [address] 74062- 4595 13 Jul, 2017 [facility] [id number] [place] [address] 41254- 9111 12 Jul, 2017 Dysuria R30.0 ; Routine gynecological examination Z01.419 and Screening breast examination Z12.31 [facility] [id number] [place] [address] 88367- 4381 12 Jul, 2017 Generalized anxiety disorder F41.1 and Major depressive disorder, recurrent episode, moderate F33.1 [facility] [id number] [place] [address] 14188- 5750 08 Jul, 2017 [facility] [address] [place] [address]- 3935 Jun, Generalized anxiety disorder F41.1 and Major depressive disorder, recurrent episode, moderate F33.1 [facility] [id number] [place] [address] 28240- 4057 Jun, Other chronic pain G89.29 [facility] [address] [place] [address] [id number] May, Dental caries K02.9 [facility] [id number] [place] [address] 20821- 4252 May, Generalized anxiety disorder F41.1 and Major depressive disorder, recurrent episode, moderate F33.1 [facility] [id number] [place] [address] [id number] May, Dental examination Z01.20 [facility] [id number] [place] [address] 88572- 0350 March, [facility] [id number] [place] [address] 32076- 5211 March, Generalized anxiety disorder F41.1 and Major depressive disorder, recurrent episode, moderate F33.1 [facility] [address] [place] [address] 51107- 2404 March, Encounter for annual physical exam Z00.00 and Other chronic pain G89.29 [facility] [address] [address]- 6603 Jan, Generalized anxiety disorder F41.1 and Major depressive disorder, recurrent episode, moderate F33.1 [facility] [address] [place] [address] 26791- 2777 Jan, [facility] [id number] [place] [address] 68987- 9754 Dec, Generalized anxiety disorder F41.1 and Major depressive disorder, recurrent episode, moderate F33.1 [facility] [address] [place] [address] 25978- 1357 Dec, Generalized anxiety disorder F41.1 and Major depressive disorder, recurrent episode, moderate F33.1 [facility] [id number] [place] [address] 35151- 2753 Dec, [facility] [id number] [place] [address] 89239- 0232 Dec, Generalized anxiety disorder F41.1 and Major depressive disorder, recurrent episode, moderate F33.1 [facility] [id number] [place] [address] 07788- 2352 Dec, Diarrhea, unspecified type R19.7 ; Irritable bowel syndrome with diarrhea K58.0 and Alkaline phosphatase elevation R74.8 [facility] [id number] [place] [address] 68314- 5512 Dec, Diarrhea, unspecified type R19.7 and Alkaline phosphatase elevation R74.8 [facility] [address] 86694- 8247 Dec, Generalized anxiety disorder F41.1 and Major depressive disorder, recurrent episode, moderate F33.1 [facility] [id number] [place] [address] 82944- 2175 Dec, Low back pain M54.5 [facility] [id number] [place] [address] 00613- 4535 Dec, Generalized anxiety disorder F41.1 and Major depressive disorder, recurrent episode, moderate F33.1 [facility] [id number] [place] [address] 45305- 4656 Dec, Irritable bowel syndrome with diarrhea K58.0 and Diarrhea, unspecified type R19.7 [facility] [address] 02206- 1009 Dec, [facility] [id number] [place] [address] 74329- 3455 Dec, Generalized anxiety disorder F41.1 and Major depressive disorder, recurrent episode, moderate F33.1 [facility] [id number] [place] [address] 52810 -5895 Nov, Cough R05 ; Viral illness B34.9 and Chronic diarrhea K52.9 [facility] [address] 86054- 1958 Nov, Generalized anxiety disorder F41.1 and Major depressive disorder, recurrent episode, moderate F33.1 [facility] [address] 10778- 1614 Nov, Encounter for Depo-Provera contraception Z30.42 [facility] [address] 08228- 8498 Nov, Generalized anxiety disorder F41.1 and Major depressive disorder, recurrent episode, moderate F33.1 [facility] [address] 45774- 4804 Nov, Low back pain M54.5 [facility] [address] 37072- 2851 Oct, Generalized anxiety disorder F41.1 and Major depressive disorder, recurrent episode, moderate F33.1 [facility] [address] 44522- 2244 Sep, Low back pain M54.5 and Other chronic pain G89.29 [facility] [address] 09186- 8669 Sep, Generalized anxiety disorder F41.1 and Major depressive disorder, recurrent episode, moderate F33.1 [facility] [address] 02937- 5163 Sep, Encounter for Depo-Provera contraception Z30.42 [facility] [address] 01178- 2729 Jul, [facility] [address] 54070- 6354 Jul, [facility] [id number] [place] [address] 38993- 4793 Jul, Encounter for immunization Z23 [facility] [address] 89161- 2656 Jun, Encounter for Depo-Provera contraception Z30.42 [facility] [id number] [place] [address] 25142- 6967 Jun, Generalized anxiety disorder F41.1 and Major depressive disorder, recurrent episode, moderate F33.1 [facility] [id number] [place] [address] 50597- 6384 May, Generalized anxiety disorder F41.1 and Major depressive disorder, recurrent episode, moderate F33.1 [facility] [id number] [place] [address] 72278- 3523 Apr, Generalized anxiety disorder F41.1 and Major depressive disorder, recurrent episode, moderate F33.1 [facility] [id number] [place] [address] 22246- 3083 March, Encounter for Depo-Provera contraception Z30.42 [facility] [facility] [id number] [place] [address] 34976- 4648 March, Generalized anxiety disorder F41.1 and Major depressive disorder, recurrent episode, moderate F33.1 [facility] [id number] [place] [address] 00697- 9905 Jan, Generalized anxiety disorder F41.1 and Major depressive disorder, recurrent episode, moderate F33.1 [facility] [id number] [place] [address] 91165- 6179 Jan, [facility] [id number] [place] [address] 97923 -6224 Jan, Oral infection K12.2 [facility] [id number] [place] [address] 55603- 9527 Jan, Tobacco abuse Z72.0 and Hypokalemia E87.6 [place] [address] [place] [address] 58387- 8394 Jan, [facility] [id number] [place] [address] 05742- 9201 Dec, Screening, lipid Z13.220 and Hypokalemia E87.6 [facility] [id number] [place] [address] 50686- 1952 Dec, Screening, lipid Z13.220 ; Screening for diabetes mellitus Z13.1 and Tobacco abuse Z72.0 [place] [id number] [place] [address] 82541- 3454 Dec, Generalized anxiety disorder F41.1 and Major depressive disorder, recurrent episode, moderate F33.1 [place] [id number] [place] [address] 89861- 2079 Dec, Routine follow-up Z39.2 ; Encounter for Depo- Provera contraception Z30.42 ; Atyp squam cell of undet signfc cyto smr crvx ( ASC-US) R87.610 and Cervical high risk human papillomavirus (HPV) DNA test positive R87.810 [place] [id number] [place] [address] 23153- 1817 08 Dec, 2015 Generalized anxiety disorder F41.1 and Major depressive disorder, recurrent episode, moderate F33.1 [address] [place] [address] 13527- 2753 Nov, Unspecified high-risk O09.90 and 39 weeks gestation of Z3A.39 [place] [id number] [place] [address] 90748- 8446 Nov, Unspecified high-risk O09.90 and 38 weeks gestation of Z3A.38 [facility] [id number] [place] [address] 30235- 7178 Nov, Unspecified high-risk O09.90 ; Dental infection K04.7 and 37 weeks gestation of Z3A.[id number] [place] [address] 15118- 7823 Oct, screening for streptococcus B Z36 ; 36 weeks gestation of Z3A.36 and Breech presentation, not applicable or unspecified fetus O32.1XX0 [facility] [id number] [place] [address] 89697- 5711 Oct, Unspecified high-risk O09.90 and 34 weeks gestation of Z3A.34 [facility] [address] 86514- 3404 Oct, 32 weeks gestation of Z3A.32 and Unspecified high- risk O09.90 [facility] [address] 52681- 6748 Sep, Encounter for immunization Z23 ; Unspecified high-risk O09.90 and 30 weeks gestation of Z3A.30 [facility] [address] 41626- 5312 Sep, Generalized anxiety disorder F41.1 and Major depressive disorder, recurrent episode, moderate F33.1 [place] [address] 33891- 6369 Aug, Unspecified high-risk O09.90 [facility] [id number] [place] [address] 75292- 0244 Aug, Unspecified high-risk O09.90 [place] [facility] [id number] [place] [address] 43949- 1993 Aug, Dental infection K04.7 [facility] [address] 32819- 9938 Aug, Dysuria R30.0 [facility] [id number] [place] [address] 35573- 5659 Aug, Dysuria R30.0 [facility] [address] 06596- 8644 Jul, Influenza vaccine administered V04.81 [facility] [address] [address]- 4523 Jul, Unspecified high-risk V23.9 [place] [address] [place] [address] 20296- 4949 Jul, Unspecified high-risk V23.9 and ASCUS with positive high risk HPV 796.9 [place] [id number] [place] [address] 38599- 2979 Jul, [place] [address] [place] [address] 01926- 7066 Jun, [place] [id number] [place] [address] 06718- 9859 Jun, Unspecified high-risk V23.9 ; Pap test, as part of routine gynecological examination V76.2 and Screen for STD (sexually transmitted disease) V74.5 [place] [address] [address]- 3537 Jun, test positive V72.42 ; Unspecified high-risk V23.9 ; UTI in 646.60 and Vomiting 643.90 [place] [address] [address]- 0593 Jun, [place] [address] [address]- 7440 Jun, [place] [address] [place] [address] 22710- 2199 Jun, [place] [address] [place] [address] 52316- 3943 May, [place] [id number] [place] [address] 97773- 3852 Apr, [place] [address] [place] [address] 79309- 1902 Apr, Absence of menstruation 626.0 [facility] [place] [facility] [address] [id number] [place] [address]- 1060 14 Jan, 2015 [facility] [place] [facility] [address] [id number] [place] [address]- 3580 Jan, [facility] [place] [facility] [address] [id number] [place] [address]- 5639 Dec, [facility] [place] [facility] [address] [id number] [place] [address]- 9940 Dec, [facility] [place] [facility] [address] [id number] [place] [address]- 1937 Dec, [facility] [place] [facility] [address] [id number] [place] [address]- 4473 Dec, [facility] [place] [facility] [address] [facility] [id number] [place] [address]- 0232 Nov, [facility] [place] [facility] [address] [id number] [address]- 6535 Nov, [facility] [place] [facility] [address] [facility] [id number] [place] [address]- 1839 Nov, [facility] [place] [facility] [address] [facility] [id number] [address]- 8183 Nov, [facility] [place] [facility] [address] [facility] [id number] [address]- 6980 Nov, [facility] [place] [facility] [address] [id number] [address]- 0127 Nov, [facility] [place] [facility] [address] [id number] [place] [address]- 9193 Nov, [facility] [place] [facility] [address] [id number] [address]- 3383 Nov, [facility] [place] [facility] [address] [facility] [id number] [place] [address]- 3569 Oct, [facility] [place] [facility] [address] [id number] [place] [address]- 1712 Oct, [facility] [place] [facility] [address] [id number] [place] [address]- 1304 Oct, [facility] [place] [facility] [address] [id number] [place] 7065 Oct, [facility] [place] [facility] [address] [id number] [place] [address]- 7570 Sep, [facility] [place] [facility] [address] [id number] [place] [address]- 6937 Sep, [facility] [place] [facility] [address] [id number] [place] 2882 Jul, [facility] [place] [facility] [address] [id number] [place] [address]- 1507 Jul, [facility] [place] [facility] [address] [id number] [place] [address]- 8699 Apr, [facility] [place] [facility] [address] [id number] [place] [address]- 8588 Apr, [facility] [place] [facility] [address] [id number] [place] [address]- 2637 March, [facility] [place] [facility] [address] [id number] [place] [address]- 1004 March, [facility] [place] [facility] [address] [id number] [place] [address]- 8207 March, [facility] [place] [facility] [address] [id number] [place] [address]- 6090 March, [facility] [place] [facility] [address] [id number] [place] [address]- 7403 Nov, [facility] [place] [facility] [address] [id number] [place] 5903 Nov, [facility] [place] [facility] [address] [id number] [place] [address]- 9003 Nov, [facility] [place] [facility] [address] [id number] [place] [address]- 5056 Nov, [facility] [address] [id number] [place] [address]- 6858 Nov, [facility] [address] [id number] [place] [address]- 6236 Nov, [facility] [address] [id number] [place] [address]- 4824 Nov, [facility] [address] [id number] [place] [address]- 6261 Nov, [facility] [address] [id number] [place] [address]- 8219 Nov, [facility] [address] [id number] [place] [address]- 7361 Nov, [facility] [address] [id number] [place] [address]- 3822 Nov, [facility] [address] [id number] [place] [address]- 6612 Oct, [facility] [address] [id number] [place] [address]- 3995 Oct, [facility] [address] [id number] [place] [address]- 9737 16 Oct, 2013 [facility] [address] [id number] [place] [address]- 6477 13 Oct, 2013 [facility] [address] [id number] [place] [address]- 4976 Oct, [facility] [place] [facility] [address] [id number] [place] [address]- 8892 12 Oct, 2013 [facility] [place] [facility] [address] [id number] [place] [address]- 7705 11 Oct, 2013 [facility] [address] [id number] [place] [address]- 3702 Oct, [facility] [place] [facility] [address] [id number] [place] [address]- 4831 Oct, [facility] [place] [facility] [address] [id number] [place] [address]- 5876 Oct, [facility] [place] [facility] [address] [id number] [place] 1140 Oct, [facility] [place] [facility] [address] [id number] [place] 8385 Oct, [facility] [place] [facility] [address] [id number] [place] [address]- 5100 Sep, [facility] [place] [facility] [address] [id number] [place] [address]- 1928 Sep, [facility] [place] [facility] [address] [id number] [place] 8290 Sep, [facility] [place] [facility] [address] [id number] [place] [address]- 3629 Sep, [facility] [place] [facility] [address] [id number] [place] [address]- 1303 Aug, [facility] [place] [facility] [address] [id number] [place] [address]- 9562 Aug, [facility] [place] [facility] [address] [id number] [address]- 1981 Aug, [facility] [place] [facility] [address] [id number], [place] [address]- 3753 Aug, [facility] [place] [facility] [address] [id number] [place] [address]- 5441 Jun, [facility] [place] [facility] [address] [id number], [place] [address]- 9587 Jun, [facility] [place] [facility] [address] [id number] [place] [address]- 6189 Apr, [facility] [place] [facility] [address] [id number] [place] [address]- [address] 14 Mar, 2013 [facility] [address] [id number] [place] [address] 17 Jan, 2013 [facility] [address] [id number] [place] [address] 16 Jan, 2013 [facility] [address] [id number] [place] [address] 15 Jan, 2013 [facility] [address] [id number] [place] [address] 11 Jan, 2013 [facility] [address] [id number] [place] [address] Dec, [facility] [address] [id number] [place] [address] Dec, [facility] [address] [id number] [place] [address] Dec, [facility] [address] [id number] [place] [address] Dec, [facility] [address] [id number] [place] [address] Oct, [facility] [address] [id number] [place] [address] Oct, [facility] [address] [id number] [place] [address] Oct, [facility] [address] [id number] [place] [address] Oct, [facility] [place] [facility] [address] [id number] [place] [address] Oct, [facility] [place] [facility] [address] [id number] [place] [address] Oct, [facility] [address] [id number] [place] [address] Sep, [facility] [place] [facility] [address] [id number] [place] [address] Sep, [facility] [place] [facility] [address] [id number] [place] [address] Aug, [facility] [place] [facility] [address] [id number] [place] [address] Aug, [facility] [place] [facility] [address] [id number] [place] [address] Aug, [facility] [place] [facility] [address] [id number] [place] [address] Jul, [facility] [place] [facility] [address] [id number] [place] [address] Jul, [facility] [place] [facility] [address] [id number] [place] [address] Jul, [facility] [place] [facility] [address] [id number] [place] [address] Jul, [facility] [place] [facility] [address] [id number] [place] [address] Jun, [facility] [place] [facility] [address] [id number] [place] [address] Jun, [facility] [place] [facility] [address] [id number] [place] [address] Jun, [facility] [place] [facility] [address] [id number] [address] Jun, [facility] [place] [facility] [address] [id number] [place] [address] Jun, [facility] [place] [facility] [address] [id number] [place] [address] May, [facility] [place] [facility] [address] [id number] [place] [address] May, [facility] [place] [facility] [address] [id number] [place] [address] Apr, [facility] [place] [facility] [address] [id number] [place] [address] Apr, [facility] [place] [facility] [address] [id number] [place] [address] Apr, [facility] [place] [facility] [address] [id number] [place] [address] March, [facility] [place] [facility] [address] [id number] [place] [address] March, [facility] [place] [facility] [address] [id number] [place] [address] March, [facility] [place] [facility] [address] [id number] [place] [address] Jan, [facility] [place] [facility] [address] [id number] [place] [address] Dec, [facility] [place] [facility] [address] [id number] [place] [address] Dec, [facility] [place] [facility] [address] [id number] [place] [address] Dec, [facility] [place] [facility] [address] [facility] [id number] [place] [address] Dec, [facility] [place] [facility] [address] [id number] [place] [address] Dec, [facility] [place] [facility] [address] [id number] [place] [address] 16 Dec, 2011 [facility] [place] [facility] [address] [id number] [place] [address]35 Dec, [facility] [place] [facility] [address] [id number] [place] [address] 29 Dec, 2011 [facility] [place] [facility] [address] [id number] [place] [address] Dec, [facility] [place] [facility] [address] [id number] [place] [address]17 Dec, [facility] [place] [facility] [address] [id number] [place] [address] 13 Dec, 2011 [facility] [place] [facility] [address] [id number] [place] [address] 11 Dec, 2011 [facility] [place] [facility] [address] [id number] [place] [address] Dec, [facility] [place] [facility] [address] [id number] [place] [address]0 30 Nov, 2011 [facility] [place] [facility] [address] [id number] [place] [address] Nov, [facility] [place] [facility] [address] [id number] [place] [address] Nov, [facility] [place] [facility] [address] [id number] [place] [address] Nov, [facility] [place] [facility] [address] [id number] [place] [address]- [address] Nov, [facility] [place] [facility] [address] [id number] [place] [address] Nov, [facility] [place] [facility] [address] [id number] [place] [address] Nov, [facility] [place] [facility] [address] [id number] [place] [address] Nov, [facility] [place] [facility] [address] [id number] [place] [address] Oct, [facility] [place] [facility] [address] [id number] [place] [address] Oct, [facility] [place] [facility] [address] [id number] [place] [address] 8286 Oct, [facility] [place] [facility] [address] [id number], [place] [address] 15 Oct, 2011 [facility] [place] [facility] [address] [id number] [place] [address] 13 Oct, 2011 [facility] [place] [facility] [address] [id number] [place] [address] 13 Oct, 2011 [facility] [place] [facility] [address] [facility] [id number] [place] [address] 07 Oct, 2011 [facility] [place] [facility] [address] [id number] [place] [address] 23 Sep, 2011 [facility] [place] [facility] [address] [id number] [place] [address], [place] [address] 18 Sep, 2011 [facility] [place] [facility] [address] [id number] [place] [address]607 18 Sep, 2011 [facility] [place] [facility] [address] [facility] [id number], [place] [address] 16 Sep, 2011 [facility] [place] [facility] [address] [id number] [place] [address]- 4242 16 Sep, 2011 [facility] [place] [facility] [address] [facility] [id number] [place] [address] 08 Sep, 2011 [facility] [place] [facility] [address] [facility] [id number] [place] [address] Sep, [facility] [place] [facility] [address] [id number], [place] [address] Aug, [facility] [place] [facility] [address] [id number], [place] [address] 118[address] Aug, [facility] [place] [facility] [address] [id number], [place] [address] Jun, [facility] [place] [facility] [address] [id number] [place] [address] Oct, [facility] [place] [facility] [address] [facility] [id number], [place] [address] 19 Oct, 2010 [facility] [place] [facility] [address] [id number] [place] [address]- [address]65 08 Oct, 2010 [facility] [place] [facility] [address] [id number] [place] [address]- 1846 16 Dec, 2009 [facility] [place] [facility] [address] [id number] [place] [address] 2546 11 Dec, 2009 [facility] [place] [facility] [address] [id number] [place] [address] 2546 18 Dec, 2009 [facility] [place] [facility] [address] [id number] [place] [address] 2546 11 Dec, 2009 [facility] [place] [facility] [address] [id number] [place] [address] 43[address] Nov, [facility] [place] [facility] [address] [id number] [place] [address] 8812 29 Oct, 2009 [facility] [place] [facility] [address] [id number] [place] [address]- 9066 17 Oct, 2009 [facility] [place] [facility] [address] [id number] [place] [address]- 2406 15 Oct, 2009 [facility] [place] [facility] [address] [id number] [place] [address]- 7516 15 Oct, 2009 [facility] [place] [facility] [address] [id number] [place] [address] 2547 24 Sep, 2009 [facility] [place] [facility] [address] [id number], [place] [address] 2546 03 Sep, 2009 [facility] [place] [facility] [address] [id number] [place] [address] 2541 29 Aug, 2009 [facility] [place] [facility] [address] [id number] [place] [address] 2546 23 Aug, 2009 [facility] [place] [facility] [address] [id number] [place] [address] 2546 13 Aug, 2009 [facility] [place] [facility] [address] [id number] [place] [address]- [address]68 Aug, [facility] [address] [facility] [id number] [place] [address] Aug, [facility] [address] [facility] [id number] [place] [address] Jun, IMMUNIZATIONS No Known Immunizations SOCIAL HISTORY Never Assessed REASON FOR VISIT med refill PLAN OF CARE VITAL SIGNS MEDICATIONS Medication [...]
--- OUTSIDE RECORDS SUMMARY | 2018-08-17 18:07 | XMS REPORT ---
Author Author CARLOSFABY GRIGGS [facility] Address [address] [place] [address] Care Team Providers Care Strategic Marketing Associate Name Role Phone FABY GONZALEZ Unavailable PROBLEMS Type Condition ICD9-CM Code NIA85-EK Code Onset Dates Condition Status SNOMED Code Problem Generalized anxiety disorder F41.1 Active 12003026 Problem Other chronic pain G89.29 Active 75961017 Problem History of methamphetamine abuse Z87.898 Active 658356639 Problem Cervical high risk HPV (human papillomavirus) test positive R87.810 Active 052076975 Problem Atyp squam cell of undet signfc cyto smr crvx (ASC-US) R87.610 Active 004516429 Problem Major depressive disorder, recurrent episode, moderate F33.1 Active 979219925 Problem BMI 36.0-36.9,adult Z68.36 Active 399502575 Problem BMI 39.0-39.9,adult Z68.39 Active 910134951 Problem Alkaline phosphatase elevation R74.8 Active 821430096 Problem Irritable bowel syndrome with diarrhea K58.0 Active 130404843 Problem Recurrent major depressive disorder, in partial remission F33.41 Active 51092010 Problem Anxiety F41.9 Active [id number] ALLERGIES No Information ENCOUNTERS Encounter Location Date Diagnosis [facility] [id number] [place] [address] 58346- 4878 May, Generalized anxiety disorder F41.1 and Major depressive disorder, recurrent episode, moderate F33.1 [facility] [id number] [place] [address] 19702- 3450 Apr, Anxiety F41.9 [facility] [id number] [place] [address] 73458- 1679 Apr, [facility] [id number] [place] [address] 11124- 0893 Apr, Weight loss counseling, encounter for Z71.3 and BMI 36.0- 36.9,adult Z68.36 [facility] [id number] [place] [address] 68431- 2363 04 Apr, 2018 Anxiety F41.9 [facility] [id number] [place] [address] 32208- 6225 March, Other chronic pain G89.29 [facility] [id number] [place] [address] 57412- 4492 March, [facility] [id number] [place] [address] 02196- 9459 March, Generalized anxiety disorder F41.1 and Major depressive disorder, recurrent episode, moderate F33.1 [facility] [id number] [place] [address] 09073- 6285 Jan, Encounter for Depo-Provera contraception Z30.42 [facility] [id number] [place] [address] 20427- 1126 Jan, Generalized anxiety disorder F41.1 and Major depressive disorder, recurrent episode, moderate F33.1 [facility] [id number] [place] [address] 48432- 0518 Dec, Anxiety F41.9 and Recurrent major depressive disorder, in partial remission F33.41 [facility] [id number] [place] [address] 19460- 2367 Nov, [place] [id number] [place] [address] 42929- 1113 Nov, Other chronic pain G89.29 ; Encounter for surveillance of injectable contraceptive Z30.42 ; BMI 39.0-39.9,adult Z68.39 and Encounter for Depo-Provera contraception Z30.42 [facility] [id number] [place] [address] 98468- 4845 Sep, Anxiety F41.9 and Recurrent major depressive disorder, in partial remission F33.41 [facility] [id number] [place] [address] 24755- 2735 Aug, Generalized anxiety disorder F41.1 and Major depressive disorder, recurrent episode, moderate F33.1 [facility] [id number] [place] [address] 57262- 5733 Aug, [facility] [id number] [place] [address] 29484- 3312 Aug, Anxiety F41.9 and Major depressive disorder, recurrent episode, moderate F33.1 [facility] [id number] [place] [address] 69115- 1861 25 Jul, 2017 Encounter for immunization Z23 [facility] [id number] [place] [address] 04986- 3321 19 Jul, 2017 [facility] [id number] [place] [address] 23138- 8350 Jul, [facility] [id number] [place] [address] 91305- 7625 14 Jul, 2017 Alkaline phosphatase elevation R74.8 [facility] [address] 97170- 4772 13 Jul, 2017 Encounter for annual physical exam Z00.00 [facility] [id number] [place] [address] 94518- 7460 Jul, [facility] [id number] [place] [address] 22469- 4163 12 Jul, 2017 Routine gynecological examination Z01.419 ; Dysuria R30.0 and Screening breast examination Z12.31 [facility] [id number] [place] [address] 44354- 2255 12 Jul, 2017 Generalized anxiety disorder F41.1 and Major depressive disorder, recurrent episode, moderate F33.1 [facility] [id number] [place] [address] 13224- 4839 08 Jul, 2017 [facility] [address] [place] [address]- 0991 Jun, Generalized anxiety disorder F41.1 and Major depressive disorder, recurrent episode, moderate F33.1 [facility] [id number] [place] [address] 27153- 0242 Jun, Other chronic pain G89.29 [facility] [id number] [place] [address] [id number] May, Dental caries K02.9 [facility] [id number] [place] [address] 22386- 1330 May, Generalized anxiety disorder F41.1 and Major depressive disorder, recurrent episode, moderate F33.1 [facility] [id number] [place] [address] [id number] May, Dental examination Z01.20 [facility] [id number] [place] [address] 24467- 1149 March, [facility] [id number] [place] [address] 86512- 7987 March, Generalized anxiety disorder F41.1 and Major depressive disorder, recurrent episode, moderate F33.1 [facility] [address] [place] [address] 90179- 4907 March, Encounter for annual physical exam Z00.00 and Other chronic pain G89.29 [facility] [address] [address]- 4674 Jan, Generalized anxiety disorder F41.1 and Major depressive disorder, recurrent episode, moderate F33.1 [facility] [address] [place] [address] 54347- 0495 Jan, [facility] [id number] [place] [address] 12565- 8802 Dec, Generalized anxiety disorder F41.1 and Major depressive disorder, recurrent episode, moderate F33.1 [facility] [address] [place] [address] 27402- 1874 Dec, Generalized anxiety disorder F41.1 and Major depressive disorder, recurrent episode, moderate F33.1 [facility] [id number] [place] [address] 20114- 7108 Dec, [facility] [id number] [place] [address] 73919- 7448 Dec, Generalized anxiety disorder F41.1 and Major depressive disorder, recurrent episode, moderate F33.1 [facility] [id number] [place] [address] 27064- 0785 Dec, Diarrhea, unspecified type R19.7 ; Irritable bowel syndrome with diarrhea K58.0 and Alkaline phosphatase elevation R74.8 [facility] [facility] [id number] [place] [address] 40486- 9980 Dec, Diarrhea, unspecified type R19.7 and Alkaline phosphatase elevation R74.8 [facility] [address] 73936- 2666 Dec, Generalized anxiety disorder F41.1 and Major depressive disorder, recurrent episode, moderate F33.1 [facility] [id number] [place] [address] 22620- 4059 Dec, Low back pain M54.5 [facility] [id number] [place] [address] 32403- 9210 Dec, Generalized anxiety disorder F41.1 and Major depressive disorder, recurrent episode, moderate F33.1 [facility] [id number] [place] [address] 44379- 0140 Dec, Irritable bowel syndrome with diarrhea K58.0 and Diarrhea, unspecified type R19.7 [facility] [address] 29378- 9068 Dec, [facility] [id number] [place] [address] 20705- 1239 Dec, Generalized anxiety disorder F41.1 and Major depressive disorder, recurrent episode, moderate F33.1 [facility] [id number] [place] [address] 77616 -1963 Nov, Cough R05 ; Viral illness B34.9 and Chronic diarrhea K52.9 [facility] [address] 25938- 9046 Nov, Generalized anxiety disorder F41.1 and Major depressive disorder, recurrent episode, moderate F33.1 [facility] [address] 77043- 6324 Nov, Encounter for Depo-Provera contraception Z30.42 [place] [address] 05974- 7007 Nov, Generalized anxiety disorder F41.1 and Major depressive disorder, recurrent episode, moderate F33.1 [facility] [address] 01573- 2355 Nov, Low back pain M54.5 [facility] [address] 26307- 5196 Oct, Generalized anxiety disorder F41.1 and Major depressive disorder, recurrent episode, moderate F33.1 [facility] [address] 37583- 5857 Sep, Low back pain M54.5 and Other chronic pain G89.29 [facility] [facility] [address] 94615- 4211 Sep, Generalized anxiety disorder F41.1 and Major depressive disorder, recurrent episode, moderate F33.1 [facility] [facility] [address] 98226- 4090 Sep, Encounter for Depo-Provera contraception Z30.42 [facility] [address] 16110- 8371 Jul, [facility] [address] 48138- 6070 Jul, [facility] [id number] [place] [address] 67370- 9810 Jul, Encounter for immunization Z23 [facility] [address] 85490- 5235 Jun, Encounter for Depo-Provera contraception Z30.42 [facility] [id number] [place] [address] 08530- 6693 Jun, Generalized anxiety disorder F41.1 and Major depressive disorder, recurrent episode, moderate F33.1 [facility] [id number] [place] [address] 56909- 8724 May, Generalized anxiety disorder F41.1 and Major depressive disorder, recurrent episode, moderate F33.1 [facility] [id number] [place] [address] 61969- 7925 Apr, Generalized anxiety disorder F41.1 and Major depressive disorder, recurrent episode, moderate F33.1 [facility] [id number] [place] [address] 07145- 0841 March, Encounter for Depo-Provera contraception Z30.42 [facility] [id number] [place] [address] 53966- 3050 March, Generalized anxiety disorder F41.1 and Major depressive disorder, recurrent episode, moderate F33.1 [facility] [id number] [place] [address] 13005- 7481 Jan, Generalized anxiety disorder F41.1 and Major depressive disorder, recurrent episode, moderate F33.1 [facility] [id number] [place] [address] 32409- 4614 Jan, [facility] [id number] [place] [address] 40671 -5177 Jan, Oral infection K12.2 [facility] [id number] [place] [address] 48800- 2459 Jan, Tobacco abuse Z72.0 and Hypokalemia E87.6 [facility] [id number] [place] [address] 63378- 8232 Jan, [facility] [id number] [place] [address] 90691- 9722 Dec, Screening, lipid Z13.220 and Hypokalemia E87.6 [facility] [id number] [place] [address] 79519- 1415 Dec, Screening, lipid Z13.220 ; Screening for diabetes mellitus Z13.1 and Tobacco abuse Z72.0 [place] [id number] [place] [address] 07551- 3130 Dec, Generalized anxiety disorder F41.1 and Major depressive disorder, recurrent episode, moderate F33.1 [place] [id number] [place] [address] 67170- 8871 Dec, Routine follow-up Z39.2 ; Encounter for Depo- Provera contraception Z30.42 ; Atyp squam cell of undet signfc cyto smr crvx ( ASC-US) R87.610 and Cervical high risk human papillomavirus (HPV) DNA test positive R87.810 [place] [id number] [place] [address] 53638- 0878 08 Dec, 2015 Generalized anxiety disorder F41.1 and Major depressive disorder, recurrent episode, moderate F33.1 [address] [place] [address] 57638- 4270 Nov, Unspecified high-risk O09.90 and 39 weeks gestation of Z3A.39 [place] [id number] [place] [address] 91216- 3958 Nov, Unspecified high-risk O09.90 and 38 weeks gestation of Z3A.38 [facility] [id number] [place] [address] 17992- 4199 Nov, Unspecified high-risk O09.90 ; Dental infection K04.7 and 37 weeks gestation of Z3A.[id number] [place] [address] 38994- 3580 Oct, screening for streptococcus B Z36 ; 36 weeks gestation of Z3A.36 and Breech presentation, not applicable or unspecified fetus O32.1XX0 [facility] [id number] [place] [address] 82894- 2192 Oct, Unspecified high-risk O09.90 and 34 weeks gestation of Z3A.34 [place] [address] 99228- 1687 Oct, 32 weeks gestation of Z3A.32 and Unspecified high- risk O09.90 [facility] [facility] [address] 64219- 2394 Sep, Unspecified high-risk O09.90 ; Encounter for immunization Z23 and 30 weeks gestation of Z3A.30 [place] [address] 12665- 2661 Sep, Generalized anxiety disorder F41.1 and Major depressive disorder, recurrent episode, moderate F33.1 [place] [address] 33732- 2340 Aug, Unspecified high-risk O09.90 [facility] [id number] [place] [address] 40029- 8241 Aug, Unspecified high-risk O09.90 [place] [id number] [place] [address] 66993- 2907 Aug, Dental infection K04.7 [facility] [address] 20347- 5818 Aug, Dysuria R30.0 [place] [id number] [place] [address] 52176- 8669 Aug, Dysuria R30.0 [place] [address] 08255- 9819 Jul, Influenza vaccine administered V04.81 [place] [address] [address]- 1261 Jul, Unspecified high-risk V23.9 [place] [address] [place] [address] 73611- 7482 Jul, Unspecified high-risk V23.9 and ASCUS with positive high risk HPV 796.9 [place] [id number] [place] [address] 10115- 3546 Jul, [place] [address] [place] [address] 04552- 8578 Jun, [place] [id number] [place] [address] 18158- 7455 Jun, Unspecified high-risk V23.9 ; Pap test, as part of routine gynecological examination V76.2 and Screen for STD (sexually transmitted disease) V74.5 [place] [address] [address]- 1539 Jun, test positive V72.42 ; Unspecified high-risk V23.9 ; UTI in 646.60 and Vomiting 643.90 [place] [address] [address]- 3644 Jun, [place] [address] [address]- 9276 Jun, [place] [id number] [place] [address] 73995- 1021 Jun, [place] [address] [place] [address] 94889- 4816 May, [place] [id number] [place] [address] 27882- 4055 Apr, [place] [address] [place] [address] 57196- 9536 Apr, Absence of menstruation 626.0 [facility] [place] [facility] [address] [id number] [place] [address]- 9120 14 Jan, 2015 [facility] [place] [facility] [address] [id number] [place] [address]- 7874 Jan, [facility] [place] [facility] [address] [id number] [place] [address]- 2809 Dec, [facility] [place] [facility] [address] [id number] [place] [address]- 3008 Dec, [facility] [place] [facility] [address] [id number] [place] [address]- 8076 Dec, [facility] [place] [facility] [address] [id number] [place] [address]- 8857 Dec, [facility] [place] [facility] [address] [facility] [id number] [place] [address]- 4253 Nov, [facility] [place] [facility] [address] [id number], [place] [address]- 6488 Nov, [facility] [place] [facility] [address] [facility] [id number] [place] [address]- 2974 Nov, [facility] [place] [facility] [address] [facility] [id number], [place] [address]- 8724 Nov, [facility] [place] [facility] [address] [facility] [id number], [place] [address]- 6870 Nov, [facility] [place] [facility] [address] [id number], [place] [address]- 3267 Nov, [facility] [place] [facility] [address] [id number] [place] [address]- 1162 Nov, [facility] [place] [facility] [address] [id number], [place] [address]- 3507 Nov, [facility] [place] [facility] [address] [facility] [id number] [place] [address]- 4479 Oct, [facility] [place] [facility] [address] [id number] [place] [address]- 4014 Oct, [facility] [place] [facility] [address] [id number] [place] [address]- 5773 Oct, [facility] [place] [facility] [address] [id number] [place] 7084 Oct, [facility] [place] [facility] [address] [id number] [place] [address]- 7090 Sep, [facility] [place] [facility] [address] [id number] [place] [address]- 6620 Sep, [facility] [place] [facility] [address] [id number] [place]- 6890 Jul, [facility] [place] [facility] [address] [id number] [place] [address]- 1286 Jul, [facility] [place] [facility] [address] [id number] [place] [address]- 8461 Apr, [facility] [place] [facility] [address] [id number] [place] [address]- 3202 Apr, [facility] [place] [facility] [address] [id number] [place] [address]- 8445 March, [facility] [place] [facility] [address] [id number] [place] [address]- 2098 March, [facility] [place] [facility] [address] [id number] [place] [address]- 3151 March, [facility] [place] [facility] [address] [id number] [place] [address]- 4294 March, [facility] [place] [facility] [address] [id number] [place] [address]- 6950 Nov, [facility] [place] [facility] [address] [id number] [place]- 4811 Nov, [facility] [place] [facility] [address] [id number] [place] [address]- 6672 Nov, [facility] [place] [facility] [address] [id number] [place] [address]- 9236 Nov, [facility] [address] [id number] [place] [address]- 9643 Nov, [facility] [address] [id number] [place] [address]- 5501 Nov, [facility] [address] [id number] [place] [address]- 6616 Nov, [facility] [address] [id number] [place] [address]- 9522 Nov, [facility] [address] [id number] [place] [address]- 7555 Nov, [facility] [address] [id number] [place] [address]- 1028 Nov, [facility] [address] [id number] [place] [address]- 8245 Nov, [facility] [address] [id number] [place] [address]- 7992 Oct, [facility] [address] [id number] [place] [address]- 8204 Oct, [facility] [address] [id number] [place] [address]- 6816 16 Oct, 2013 [facility] [address] [id number] [place] [address]- 8990 13 Oct, 2013 [facility] [address] [id number] [place] [address]- 0960 Oct, [facility] [place] [facility] [address] [id number] [place] [address]- 2141 12 Oct, 2013 [facility] [place] [facility] [address] [id number] [place] [address]- 0876 11 Oct, 2013 [facility] [address] [id number] [place] [address]- 5534 Oct, [facility] [place] [facility] [address] [id number] [place] [address]- 5805 Oct, [facility] [place] [facility] [address] [id number] [place] [address]- 0708 Oct, [facility] [place] [facility] [address] [id number] [place] 5459 Oct, [facility] [place] [facility] [address] [id number] [place] 5879 Oct, [facility] [place] [facility] [address] [id number] [place] [address]- 1485 Sep, [facility] [place] [facility] [address] [id number] [place] [address]- 9376 Sep, [facility] [place] [facility] [address] [id number] [place] 6958 Sep, [facility] [place] [facility] [address] [id number] [place] [address]- 5609 Sep, [facility] [place] [facility] [address] [id number] [place] [address] Aug, [facility] [place] [facility] [address] [id number] [place] [address] Aug, [facility] [place] [facility] [address] [id number] [address] Aug, [facility] [place] [facility] [address] [id number], [place] [address] Aug, [facility] [place] [facility] [address] [id number] [place] [address] Jun, [facility] [place] [facility] [address] [id number], [place] [address] Jun, [facility] [place] [facility] [address] [id number] [place] [address] Apr, [facility] [place] [facility] [address] [id number] [place] [address] 14 Mar, 2013 [facility] [address] [id number] [place] [address] 17 Jan, 2013 [facility] [address] [id number] [place] [address] 16 Jan, 2013 [facility] [address] [id number] [place] [address] 15 Jan, 2013 [facility] [address] [id number] [place] [address] 11 Jan, 2013 [facility] [address] [id number] [place] [address] Dec, [facility] [address] [id number] [place] [address] Dec, [facility] [address] [id number] [place] [address] Dec, [facility] [address] [id number] [place] [address] Dec, [facility] [address] [id number] [place] [address] Oct, [facility] [address] [id number] [place] [address] Oct, [facility] [address] [id number] [place] [address] Oct, [facility] [address] [id number] [place] [address] Oct, [facility] [place] [facility] [address] [id number] [place] [address] Oct, [facility] [place] [facility] [address] [id number] [place] [address] Oct, [facility] [address] [id number] [place] [address] Sep, [facility] [place] [facility] [address] [id number] [place] [address] Sep, [facility] [place] [facility] [address] [id number] [place] [address] Aug, [facility] [place] [facility] [address] [id number] [place] [address] Aug, [facility] [place] [facility] [address] [id number] [place] [address] Aug, [facility] [place] [facility] [address] [id number] [place] [address] Jul, [facility] [place] [facility] [address] [id number] [place] [address] Jul, [facility] [place] [facility] [address] [id number] [place] [address] Jul, [facility] [place] [facility] [address] [id number] [place] [address] Jul, [facility] [place] [facility] [address] [id number] [place] [address] Jun, [facility] [place] [facility] [address] [id number] [place] [address] Jun, [facility] [place] [facility] [address] [id number] [place] [address] Jun, [facility] [place] [facility] [address] [id number], [place] [address] Jun, [facility] [place] [facility] [address] [id number] [place] [address] Jun, [facility] [place] [facility] [address] [id number] [place] [address] May, [facility] [place] [facility] [address] [id number] [place] [address]162 May, [facility] [place] [facility] [address] [id number] [place] [address] Apr, [facility] [place] [facility] [address] [id number] [place] [address] Apr, [facility] [place] [facility] [address] [id number] [place] [address]186 Apr, [facility] [place] [facility] [address] [id number] [place] [address] March, [facility] [place] [facility] [address] [id number] [place] [address]489 March, [facility] [place] [facility] [address] [id number] [place] [address]997 March, [facility] [place] [facility] [address] [id number] [place] [address] Jan, [facility] [place] [facility] [address] [id number] [place] [address]649 Dec, [facility] [place] [facility] [address] [id number] [place] [address] 4677 Dec, [facility] [place] [facility] [address] [id number] [place] [address] Dec, [facility] [place] [facility] [address] [facility] [id number] [place] [address]- 7364 Dec, [facility] [place] [facility] [address] [id number] [place] [address]642 Dec, [facility] [place] [facility] [address] [id number] [place] [address] 2541 16 Dec, 2011 [facility] [place] [facility] [address] [id number] [place] [address]- 4291 Dec, [facility] [place] [facility] [address] [id number] [place] [address]- 7146 29 Dec, 2011 [facility] [place] [facility] [address] [id number] [place] [address]- [address]64 Dec, [facility] [place] [facility] [address] [id number] [place] [address]- [address]508 Dec, [facility] [place] [facility] [address] [id number] [place] [address]106 13 Dec, 2011 [facility] [place] [facility] [address] [id number] [place] [address]- 4426 11 Dec, 2011 [facility] [place] [facility] [address] [id number] [place] [address]- [address]676 Dec, [facility] [place] [facility] [address] [id number] [place] [address]- 1732 30 Nov, 2011 [facility] [place] [facility] [address] [id number] [place] [address] 2800 Nov, [facility] [place] [facility] [address] [id number] [place] [address] 1743 Nov, [facility] [place] [facility] [address] [id number] [place] [address]800 Nov, [facility] [place] [facility] [address] [id number] [place] [address] 7976 Nov, [facility] [place] [facility] [address] [id number] [place] [address] 3045 Nov, [facility] [place] [facility] [address] [id number] [place] [address] 5518 Nov, [facility] [place] [facility] [address] [id number] [place] [address]- 3771 Nov, [facility] [place] [facility] [address] [id number] [place] [address] 1444 Oct, [facility] [place] [facility] [address] [id number] [place] [address]- 7526 Oct, [facility] [place] [facility] [address] [id number] [place] [address] 4260 Oct, [facility] [place] [facility] [address] [id number], [place] [address] 15 Oct, 2011 [facility] [place] [facility] [address] [id number] [place] [address]- 1303 13 Oct, 2011 [facility] [place] [facility] [address] [id number] [place] [address]- 4758 13 Oct, 2011 [facility] [place] [facility] [address] [facility] [id number] [place] [address]- [address]368 07 Oct, 2011 [facility] [place] [facility] [address] [id number] [place] [address]- 8720 23 Sep, 2011 [facility] [place] [facility] [address] [id number] [place] [address], [place] [address]- 1385 18 Sep, 2011 [facility] [place] [facility] [address] [id number] [place] [address]- 0247 18 Sep, 2011 [facility] [place] [facility] [address] [facility] [id number], [place] [address]- [address] 16 Sep, 2011 [facility] [place] [facility] [address] [id number] [place] [address]- 0384 16 Sep, 2011 [facility] [place] [facility] [address] [facility] [id number] [place] [address]- 8895 08 Sep, 2011 [facility] [place] [facility] [address] [facility] [id number] [place] [address]- 7914 Sep, [facility] [place] [facility] [address] [id number], [place] [address] Aug, [facility] [place] [facility] [address] [id number], [place] [address] Aug, [facility] [place] [facility] [address] [id number], [place] [address] Jun, [facility] [place] [facility] [address] [id number] [place] [address]- 2060 Oct, [facility] [place] [facility] [address] [facility] [id number], [place] [address]- 9839 19 Oct, 2010 [facility] [place] [facility] [address] [id number] [place] [address]- 7960 08 Oct, 2010 [facility] [place] [facility] [address] [id number] [place] [address]- 4456 16 Dec, 2009 [facility] [place] [facility] [address] [id number] [place] [address] 2546 11 Dec, 2009 [facility] [place] [facility] [address] [id number] [place] [address] 2546 18 Dec, 2009 [facility] [place] [facility] [address] [id number] [place] [address] 2546 11 Dec, 2009 [facility] [place] [facility] [address] [id number] [place] [address]- 1546 Nov, [facility] [place] [facility] [address] [id number] [place] [address]- 0097 29 Oct, 2009 [facility] [place] [facility] [address] [id number] [place] [address]- 5046 17 Oct, 2009 [facility] [place] [facility] [address] [id number] [place] [address]- 8414 15 Oct, 2009 [facility] [place] [facility] [address] [id number] [place] [address]- 8729 15 Oct, 2009 [facility] [place] [facility] [address] [id number] [place] [address] 254 24 Sep, 2009 [facility] [place] [facility] [address] [id number], [place] [address] 2546 03 Sep, 2009 [facility] [place] [facility] [address] [id number] [place] [address] 2542 29 Aug, 2009 [facility] [place] [facility] [address] [id number] [place] [address] 2546 23 Aug, 2009 [facility] [place] [facility] [address] [id number] [place] [address] 2546 13 Aug, 2009 [facility] [place] [facility] [address] [id number] [place] [address] 8453 Aug, [facility] [address] [facility] [id number] [place] [address]- 8436 Aug, [facility] [address] [facility] [id number] [place] [address]- [address] Jun, IMMUNIZATIONS No Known Immunizations SOCIAL HISTORY Never Assessed REASON FOR VISIT Refill Request PLAN OF CARE VITAL SIGNS MEDICATIONS Medication [...]
--- OUTSIDE RECORDS SUMMARY | 2018-08-17 18:08 | XMS REPORT ---
Author Author SUZANNE BURNHAM [facility] Address [address] [place] [address] Care Team Providers Care Head Sawyer Automatic Name Role Phone SUZANNE BURNHAM Unavailable PROBLEMS Type Condition ICD9-CM Code [id number] Code Onset Dates Condition Status SNOMED Code Problem Generalized anxiety disorder F41.1 Active 80607582 Problem Other chronic pain G89.29 Active 33310912 Problem History of methamphetamine abuse Z87.898 Active 226737006 Problem Cervical high risk HPV (human papillomavirus) test positive R87.810 Active 371728718 Problem Atyp squam cell of undet signfc cyto smr crvx (ASC-US) R87.610 Active 487774597 Problem Major depressive disorder, recurrent episode, moderate F33.1 Active 877209655 Problem BMI 36.0-36.9,adult Z68.36 Active 430973946 Problem BMI 39.0-39.9,adult Z68.39 Active 201515272 Problem Alkaline phosphatase elevation R74.8 Active 332298826 Problem Irritable bowel syndrome with diarrhea K58.0 Active 986697789 Problem Recurrent major depressive disorder, in partial remission F33.41 Active 65830547 Problem Anxiety F41.9 Active 61335779 ALLERGIES No Information ENCOUNTERS Encounter Location Date Diagnosis [facility] [id number] [place] [address] 00935- 5074 May, Generalized anxiety disorder F41.1 and Major depressive disorder, recurrent episode, moderate F33.1 [facility] [id number] [place] [address] 60894- 5664 Apr, Anxiety F41.9 [facility] [address] [place] [address] 47173- 5049 Apr, [facility] [address] [place] [address] 31745- 4685 Apr, Weight loss counseling, encounter for Z71.3 and BMI 36.0- 36.9,adult Z68.36 [facility] [id number] [place] [address] 03505- 7172 04 Apr, 2018 Anxiety F41.9 [facility] [id number] [place] [address] 03100- 6644 March, Other chronic pain G89.29 [facility] [id number] [place] [address] 35316- 8913 March, [facility] [id number] [place] [address] 25436- 7011 March, Generalized anxiety disorder F41.1 and Major depressive disorder, recurrent episode, moderate F33.1 [facility] [id number] [place] [address] 51154- 6313 Jan, Encounter for Depo-Provera contraception Z30.42 [facility] [id number] [place] [address] 69505- 7852 Jan, Generalized anxiety disorder F41.1 and Major depressive disorder, recurrent episode, moderate F33.1 [facility] [id number] [place] [address] 95124- 2700 Dec, Anxiety F41.9 and Recurrent major depressive disorder, in partial remission F33.41 [facility] [id number] [place] [address] 35997- 3042 Nov, [place] [id number] [place] [address] 30717- 5863 Nov, Other chronic pain G89.29 ; Encounter for surveillance of injectable contraceptive Z30.42 ; BMI 39.0-39.9,adult Z68.39 and Encounter for Depo-Provera contraception Z30.42 [facility] [address] [place] [address] 90670- 6737 Sep, Anxiety F41.9 and Recurrent major depressive disorder, in partial remission F33.41 [facility] [id number] [place] [address] 60961- 5471 Aug, Generalized anxiety disorder F41.1 and Major depressive disorder, recurrent episode, moderate F33.1 [facility] [id number] [place] [address] 23281- 0025 Aug, [facility] [id number] [place] [address] 91942- 9162 Aug, Anxiety F41.9 and Major depressive disorder, recurrent episode, moderate F33.1 [facility] [id number] [place] [address] 55577- 2973 25 Jul, 2017 Encounter for immunization Z23 [facility] [id number] [place] [address] 03054- 8936 19 Jul, 2017 [facility] [id number] [place] [address] 19834- 0514 Jul, [facility] [id number] [place] [address] 15985- 4885 14 Jul, 2017 Alkaline phosphatase elevation R74.8 [facility] [id number] [place] [address] 60685- 6873 13 Jul, 2017 Encounter for annual physical exam Z00.00 [facility] [id number] [place] [address] 17364- 0884 13 Jul, 2017 [facility] [id number] [place] [address] 67244- 1546 12 Jul, 2017 Dysuria R30.0 ; Routine gynecological examination Z01.419 and Screening breast examination Z12.31 [facility] [id number] [place] [address] 35026- 4730 12 Jul, 2017 Generalized anxiety disorder F41.1 and Major depressive disorder, recurrent episode, moderate F33.1 [facility] [id number] [place] [address] 08197- 9814 08 Jul, 2017 [facility] [address] [place] [address]- 9380 Jun, Generalized anxiety disorder F41.1 and Major depressive disorder, recurrent episode, moderate F33.1 [facility] [id number] [place] [address] 26988- 6396 Jun, Other chronic pain G89.29 [facility] [address] [place] [address] [id number] May, Dental caries K02.9 [facility] [id number] [place] [address] 26320- 1006 May, Generalized anxiety disorder F41.1 and Major depressive disorder, recurrent episode, moderate F33.1 [facility] [id number] [place] [address] [id number] May, Dental examination Z01.20 [facility] [id number] [place] [address] 06794- 2067 March, [facility] [id number] [place] [address] 59783- 8102 March, Generalized anxiety disorder F41.1 and Major depressive disorder, recurrent episode, moderate F33.1 [facility] [address] [place] [address] 00506- 6390 March, Encounter for annual physical exam Z00.00 and Other chronic pain G89.29 [facility] [address] [address]- 3552 Jan, Generalized anxiety disorder F41.1 and Major depressive disorder, recurrent episode, moderate F33.1 [facility] [address] [place] [address] 46708- 8230 Jan, [facility] [id number] [place] [address] 55329- 4631 Dec, Generalized anxiety disorder F41.1 and Major depressive disorder, recurrent episode, moderate F33.1 [facility] [address] [place] [address] 43673- 8913 Dec, Generalized anxiety disorder F41.1 and Major depressive disorder, recurrent episode, moderate F33.1 [facility] [id number] [place] [address] 72481- 2787 Dec, [facility] [id number] [place] [address] 77575- 5387 Dec, Generalized anxiety disorder F41.1 and Major depressive disorder, recurrent episode, moderate F33.1 [facility] [id number] [place] [address] 15196- 3239 Dec, Diarrhea, unspecified type R19.7 ; Irritable bowel syndrome with diarrhea K58.0 and Alkaline phosphatase elevation R74.8 [facility] [id number] [place] [address] 67363- 7678 Dec, Diarrhea, unspecified type R19.7 and Alkaline phosphatase elevation R74.8 [facility] [address] 90157- 5494 Dec, Generalized anxiety disorder F41.1 and Major depressive disorder, recurrent episode, moderate F33.1 [facility] [id number] [place] [address] 30129- 5435 Dec, Low back pain M54.5 [facility] [id number] [place] [address] 57966- 2108 Dec, Generalized anxiety disorder F41.1 and Major depressive disorder, recurrent episode, moderate F33.1 [facility] [id number] [place] [address] 48029- 4347 Dec, Irritable bowel syndrome with diarrhea K58.0 and Diarrhea, unspecified type R19.7 [facility] [address] 07858- 8973 Dec, [facility] [id number] [place] [address] 71624- 8320 Dec, Generalized anxiety disorder F41.1 and Major depressive disorder, recurrent episode, moderate F33.1 [facility] [id number] [place] [address] 23928 -3293 Nov, Cough R05 ; Viral illness B34.9 and Chronic diarrhea K52.9 [facility] [address] 71525- 3780 Nov, Generalized anxiety disorder F41.1 and Major depressive disorder, recurrent episode, moderate F33.1 [facility] [address] 94745- 6429 Nov, Encounter for Depo-Provera contraception Z30.42 [facility] [address] 20904- 2444 Nov, Generalized anxiety disorder F41.1 and Major depressive disorder, recurrent episode, moderate F33.1 [facility] [address] 55311- 8625 Nov, Low back pain M54.5 [facility] [address] 53284- 7561 Oct, Generalized anxiety disorder F41.1 and Major depressive disorder, recurrent episode, moderate F33.1 [facility] [address] 41752- 1827 Sep, Low back pain M54.5 and Other chronic pain G89.29 [facility] [address] 13702- 8229 Sep, Generalized anxiety disorder F41.1 and Major depressive disorder, recurrent episode, moderate F33.1 [facility] [address] 53779- 7141 Sep, Encounter for Depo-Provera contraception Z30.42 [facility] [address] 11583- 6563 Jul, [facility] [address] 48760- 3265 Jul, [facility] [id number] [place] [address] 09727- 1758 Jul, Encounter for immunization Z23 [facility] [address] 65190- 4989 Jun, Encounter for Depo-Provera contraception Z30.42 [facility] [id number] [place] [address] 68377- 2432 Jun, Generalized anxiety disorder F41.1 and Major depressive disorder, recurrent episode, moderate F33.1 [facility] [id number] [place] [address] 69041- 4835 May, Generalized anxiety disorder F41.1 and Major depressive disorder, recurrent episode, moderate F33.1 [facility] [id number] [place] [address] 42914- 0495 Apr, Generalized anxiety disorder F41.1 and Major depressive disorder, recurrent episode, moderate F33.1 [facility] [id number] [place] [address] 01444- 4720 March, Encounter for Depo-Provera contraception Z30.42 [facility] [id number] [place] [address] 28346- 0935 March, Generalized anxiety disorder F41.1 and Major depressive disorder, recurrent episode, moderate F33.1 [facility] [id number] [place] [address] 82016- 9198 Jan, Generalized anxiety disorder F41.1 and Major depressive disorder, recurrent episode, moderate F33.1 [facility] [id number] [place] [address] 95859- 9183 Jan, [facility] [id number] [place] [address] 95775 -5936 Jan, Oral infection K12.2 [facility] [id number] [place] [address] 91034- 2954 Jan, Tobacco abuse Z72.0 and Hypokalemia E87.6 [facility] [address] [place] [address] 99268- 0547 Jan, [facility] [id number] [place] [address] 57129- 5871 Dec, Screening, lipid Z13.220 and Hypokalemia E87.6 [facility] [id number] [place] [address] 23364- 3681 Dec, Screening, lipid Z13.220 ; Screening for diabetes mellitus Z13.1 and Tobacco abuse Z72.0 [place] [id number] [place] [address] 08570- 7577 Dec, Generalized anxiety disorder F41.1 and Major depressive disorder, recurrent episode, moderate F33.1 [place] [id number] [place] [address] 43767- 6273 Dec, Routine follow-up Z39.2 ; Encounter for Depo- Provera contraception Z30.42 ; Atyp squam cell of undet signfc cyto smr crvx ( ASC-US) R87.610 and Cervical high risk human papillomavirus (HPV) DNA test positive R87.810 [place] [id number] [place] [address] 39019- 6757 08 Dec, 2015 Generalized anxiety disorder F41.1 and Major depressive disorder, recurrent episode, moderate F33.1 [address] [place] [address] 09542- 1648 Nov, Unspecified high-risk O09.90 and 39 weeks gestation of Z3A.39 [place] [id number] [place] [address] 02184- 9775 Nov, Unspecified high-risk O09.90 and 38 weeks gestation of Z3A.38 [facility] [id number] [place] [address] 78304- 9300 Nov, Unspecified high-risk O09.90 ; Dental infection K04.7 and 37 weeks gestation of Z3A.[id number] [place] [address] 08848- 6027 Oct, screening for streptococcus B Z36 ; 36 weeks gestation of Z3A.36 and Breech presentation, not applicable or unspecified fetus O32.1XX0 [facility] [id number] [place] [address] 55307- 4310 Oct, Unspecified high-risk O09.90 and 34 weeks gestation of Z3A.34 [facility] [address] 24728- 5543 Oct, 32 weeks gestation of Z3A.32 and Unspecified high- risk O09.90 [facility] [address] 62894- 8793 Sep, Encounter for immunization Z23 ; Unspecified high-risk O09.90 and 30 weeks gestation of Z3A.30 [facility] [address] 86572- 1319 Sep, Generalized anxiety disorder F41.1 and Major depressive disorder, recurrent episode, moderate F33.1 [facility] [address] 49819- 5514 Aug, Unspecified high-risk O09.90 [facility] [id number] [place] [address] 21460- 7731 Aug, Unspecified high-risk O09.90 [facility] [id number] [place] [address] 73716- 7561 Aug, Dental infection K04.7 [facility] [address] 65352- 8697 Aug, Dysuria R30.0 [facility] [id number] [place] [address] 45984- 6035 Aug, Dysuria R30.0 [facility] [address] 63391- 6700 Jul, Influenza vaccine administered V04.81 [facility] [address] [address]- 9351 Jul, Unspecified high-risk V23.9 [facility] [address] [place] [address] 72477- 8738 Jul, Unspecified high-risk V23.9 and ASCUS with positive high risk HPV 796.9 [facility] [id number] [place] [address] 01453- 3069 Jul, [facility] [address] [place] [address] 58368- 1783 Jun, [facility] [id number] [place] [address] 71524- 9409 Jun, Unspecified high-risk V23.9 ; Pap test, as part of routine gynecological examination V76.2 and Screen for STD (sexually transmitted disease) V74.5 [facility] [address] [address]- 0442 Jun, test positive V72.42 ; Unspecified high-risk V23.9 ; UTI in 646.60 and Vomiting 643.90 [facility] [address] [address]- 7700 Jun, [facility] [address] [address]- 3657 Jun, [facility] [place] [address] [place] [address] 29045- 5487 Jun, [facility] [address] [place] [address] 67902- 8755 May, [facility] [id number] [place] [address] 77778- 4747 Apr, [facility] [address] [place] [address] 74864- 9645 Apr, Absence of menstruation 626.0 [facility] [place] [facility] [address] [id number] [place] [address]- 8529 14 Jan, 2015 [facility] [place] [facility] [address] [id number] [place] [address]- 3577 Jan, [facility] [place] [facility] [address] [id number] [place] [address]- 5415 Dec, [facility] [place] [facility] [address] [id number] [place] [address]- 2178 Dec, [facility] [place] [facility] [address] [id number] [place] [address]- 2950 Dec, [facility] [place] [facility] [address] [id number] [place] [address]- 2798 Dec, [facility] [place] [facility] [address] [facility] [id number] [place] [address]- 9366 Nov, [facility] [place] [facility] [address] [id number] [address]- 5099 Nov, [facility] [place] [facility] [address] [facility] [id number] [place] [address]- 2403 Nov, [facility] [place] [facility] [address] [facility] [id number] [address]- 2289 Nov, [facility] [place] [facility] [address] [facility] [id number] [address]- 7007 Nov, [facility] [place] [facility] [address] [id number] [address]- 4281 Nov, [facility] [place] [facility] [address] [id number] [place] [address]- 1053 Nov, [facility] [place] [facility] [address] [id number] [address]- 3300 Nov, [facility] [place] [facility] [address] [facility] [id number] [place] [address]- 8051 Oct, [facility] [place] [facility] [address] [id number] [place] [address]- 8098 Oct, [facility] [place] [facility] [address] [id number] [place] [address]- 6640 Oct, [facility] [place] [facility] [address] [id number] [place] 8516 Oct, [facility] [place] [facility] [address] [id number] [place] [address]- 6436 Sep, [facility] [place] [facility] [address] [id number] [place] [address]- 4916 Sep, [facility] [place] [facility] [address] [id number] [place] 4008 Jul, [facility] [place] [facility] [address] [id number] [place] [address]- 0567 Jul, [facility] [place] [facility] [address] [id number] [place] [address]- 0983 Apr, [facility] [place] [facility] [address] [id number] [place] [address]- 9495 Apr, [facility] [place] [facility] [address] [id number] [place] [address]- 2445 March, [facility] [place] [facility] [address] [id number] [place] [address]- 2671 March, [facility] [place] [facility] [address] [id number] [place] [address]- 2034 March, [facility] [place] [facility] [address] [id number] [place] [address]- 0605 March, [facility] [place] [facility] [address] [id number] [place] [address]- 3173 Nov, [facility] [place] [facility] [address] [id number] [place] 9482 Nov, [facility] [place] [facility] [address] [id number] [place] [address]- 1600 Nov, [facility] [place] [facility] [address] [id number] [place] [address]- 4209 Nov, [facility] [address] [id number] [place] [address]- 8868 Nov, [facility] [address] [id number] [place] [address]- 9359 Nov, [facility] [address] [id number] [place] [address]- 4191 Nov, [facility] [address] [id number] [place] [address]- 4237 Nov, [facility] [address] [id number] [place] [address]- 8712 Nov, [facility] [address] [id number] [place] [address]- 3237 Nov, [facility] [address] [id number] [place] [address]- 4461 Nov, [facility] [address] [id number] [place] [address]- 0650 Oct, [facility] [address] [id number] [place] [address]- 2943 Oct, [facility] [address] [id number] [place] [address]- 1251 16 Oct, 2013 [facility] [address] [id number] [place] [address]- 3501 13 Oct, 2013 [facility] [address] [id number] [place] [address]- 1193 Oct, [facility] [place] [facility] [address] [id number] [place] [address]- 9398 12 Oct, 2013 [facility] [place] [facility] [address] [id number] [place] [address]- 7927 11 Oct, 2013 [facility] [address] [id number] [place] [address]- 6047 Oct, [facility] [place] [facility] [address] [id number] [place] [address]- 4532 Oct, [facility] [place] [facility] [address] [id number] [place] [address]- 6833 Oct, [facility] [place] [facility] [address] [id number] [place] 1649 Oct, [facility] [place] [facility] [address] [id number] [place] 3412 Oct, [facility] [place] [facility] [address] [id number] [place] [address]- 1293 Sep, [facility] [place] [facility] [address] [id number] [place] [address]- 3667 Sep, [facility] [place] [facility] [address] [id number] [place] 1142 Sep, [facility] [place] [facility] [address] [id number] [place] [address]- 2860 Sep, [facility] [place] [facility] [address] [id number] [place] [address]- 3820 Aug, [facility] [place] [facility] [address] [id number] [place] [address]- 0559 Aug, [facility] [place] [facility] [address] [id number] [address] Aug, [facility] [place] [facility] [address] [id number] [address] Aug, [facility] [place] [facility] [address] [id number] [place] [address] Jun, [facility] [place] [facility] [address] [id number] [address] Jun, [facility] [place] [facility] [address] [id number] [place] [address] Apr, [facility] [place] [facility] [address] [id number] [place] [address] 14 Mar, 2013 [facility] [address] [id number] [place] [address] 17 Jan, 2013 [facility] [address] [id number] [place] [address] 16 Jan, 2013 [facility] [address] [id number] [place] [address] 15 Jan, 2013 [facility] [address] [id number] [place] [address] 11 Jan, 2013 [facility] [address] [id number] [place] [address] Dec, [facility] [address] [id number] [place] [address] Dec, [facility] [address] [id number] [place] [address] Dec, [facility] [address] [id number] [place] [address] Dec, [facility] [address] [id number] [place] [address] Oct, [facility] [address] [id number] [place] [address] Oct, [facility] [address] [id number] [place] [address] Oct, [facility] [address] [id number] [place] [address] Oct, [facility] [place] [facility] [address] [id number] [place] [address] Oct, [facility] [place] [facility] [address] [id number] [place] [address] Oct, [facility] [address] [id number] [place] [address] Sep, [facility] [place] [facility] [address] [id number] [place] [address] Sep, [facility] [place] [facility] [address] [id number] [place] [address] Aug, [facility] [place] [facility] [address] [id number] [place] [address] Aug, [facility] [place] [facility] [address] [id number] [place] [address] Aug, [facility] [place] [facility] [address] [id number] [place] [address] Jul, [facility] [place] [facility] [address] [id number] [place] [address] Jul, [facility] [place] [facility] [address] [id number] [place] [address] Jul, [facility] [place] [facility] [address] [id number] [place] [address] Jul, [facility] [place] [facility] [address] [id number] [place] [address] Jun, [facility] [place] [facility] [address] [id number] [place] [address] Jun, [facility] [place] [facility] [address] [id number] [place] [address] Jun, [facility] [place] [facility] [address] [id number] [address] Jun, [facility] [place] [facility] [address] [id number] [place] [address] Jun, [facility] [place] [facility] [address] [id number] [place] [address] May, [facility] [place] [facility] [address] [id number] [place] [address] May, [facility] [place] [facility] [address] [id number] [place] [address] Apr, [facility] [place] [facility] [address] [id number] [place] [address] Apr, [facility] [place] [facility] [address] [id number] [place] [address] Apr, [facility] [place] [facility] [address] [id number] [place] [address] March, [facility] [place] [facility] [address] [id number] [place] [address] March, [facility] [place] [facility] [address] [id number] [place] [address] March, [facility] [place] [facility] [address] [id number] [place] [address] Jan, [facility] [place] [facility] [address] [id number] [place] [address] Dec, [facility] [place] [facility] [address] [id number] [place] [address] Dec, [facility] [place] [facility] [address] [id number] [place] [address] Dec, [facility] [place] [facility] [address] [facility] [id number] [place] [address] Dec, [facility] [place] [facility] [address] [id number] [place] [address]- [address] Dec, [facility] [place] [facility] [address] [id number] [place] [address] 16 Dec, 2011 [facility] [place] [facility] [address] [id number] [place] [address] Dec, [facility] [place] [facility] [address] [id number] [place] [address] 29 Dec, 2011 [facility] [place] [facility] [address] [id number] [place] [address] Dec, [facility] [place] [facility] [address] [id number] [place] [address] Dec, [facility] [place] [facility] [address] [id number] [place] [address] 13 Dec, 2011 [facility] [place] [facility] [address] [id number] [place] [address] 11 Dec, 2011 [facility] [place] [facility] [address] [id number] [place] [address]- [address] Dec, [facility] [place] [facility] [address] [id number] [place] [address] 30 Nov, 2011 [facility] [place] [facility] [address] [id number] [place] [address] Nov, [facility] [place] [facility] [address] [id number] [place] [address] Nov, [facility] [place] [facility] [address] [id number] [place] [address] Nov, [facility] [place] [facility] [address] [id number] [place] [address]99 Nov, [facility] [place] [facility] [address] [id number] [place] [address] Nov, [facility] [place] [facility] [address] [id number] [place] [address] Nov, [facility] [place] [facility] [address] [id number] [place] [address] 3936 Nov, [facility] [place] [facility] [address] [id number] [place] [address] 2973 Oct, [facility] [place] [facility] [address] [id number] [place] [address] Oct, [facility] [place] [facility] [address] [id number] [place] [address] Oct, [facility] [place] [facility] [address] [id number] [address] 15 Oct, 2011 [facility] [place] [facility] [address] [id number] [place] [address]66 13 Oct, 2011 [facility] [place] [facility] [address] [id number] [place] [address] 13 Oct, 2011 [facility] [place] [facility] [address] [facility] [id number] [place] [address] 07 Oct, 2011 [facility] [place] [facility] [address] [id number] [place] [address]- [address] 23 Sep, 2011 [facility] [place] [facility] [address] [id number] [place] [address], [place] [address]- [address] 18 Sep, 2011 [facility] [place] [facility] [address] [id number] [place] [address] 18 Sep, 2011 [facility] [place] [facility] [address] [facility] [id number] [place] [address] 16 Sep, 2011 [facility] [place] [facility] [address] [id number] [place] [address] 3961 16 Sep, 2011 [facility] [place] [facility] [address] [facility] [id number] [place] [address]- [address] 08 Sep, 2011 [facility] [place] [facility] [address] [facility] [id number] [place] [address]673 Sep, [facility] [place] [facility] [address] [id number] [address] Aug, [facility] [place] [facility] [address] [id number] [place] [address] 1427 Aug, [facility] [place] [facility] [address] [id number] [place] [address] Jun, [facility] [place] [facility] [address] [id number] [place] [address] 9843 Oct, [facility] [place] [facility] [address] [facility] [id number] [place] [address]- [address] 19 Oct, 2010 [facility] [place] [facility] [address] [id number] [place] [address]- [address]47 08 Oct, 2010 [facility] [place] [facility] [address] [id number] [place] [address]- 2766 16 Dec, 2009 [facility] [place] [facility] [address] [id number] [place] [address] 2546 11 Dec, 2009 [facility] [place] [facility] [address] [id number] [place] [address] 2546 18 Dec, 2009 [facility] [place] [facility] [address] [id number] [place] [address] 2546 11 Dec, 2009 [facility] [place] [facility] [address] [id number] [place] [address] Nov, [facility] [place] [facility] [address] [id number] [place] [address]- 234[address] 29 Oct, 2009 [facility] [place] [facility] [address] [id number] [place] [address]- 7036 17 Oct, 2009 [facility] [place] [facility] [address] [id number] [place] [address]- 8595 15 Oct, 2009 [facility] [place] [facility] [address] [id number] [place] [address]- 9830 15 Oct, 2009 [facility] [place] [facility] [address] [id number] [place] [address] 2543 24 Sep, 2009 [facility] [place] [facility] [address] [id number] [place] [address] 2546 03 Sep, 2009 [facility] [place] [facility] [address] [id number] [place] [address] 2541 29 Aug, 2009 [facility] [place] [facility] [address] [id number] [place] [address] 2546 23 Aug, 2009 [facility] [place] [facility] [address] [id number] [place] [address] 2546 13 Aug, 2009 [facility] [place] [facility] [address] [id number] [place] [address] Aug, [facility] [address] [facility] [id number] [place] [address] Aug, [facility] [address] [facility] [id number] [place] [address] Jun, IMMUNIZATIONS No Known Immunizations SOCIAL HISTORY Never Assessed REASON FOR VISIT f/u PLAN OF CARE Activity Details Follow Up 2 Months Reason: F/U VITAL SIGNS MEDICATIONS Unknown Medications RESULTS No Results PROCEDURES Procedure Date Ordered Result Body Site Psychotherapy, patient &/family, 30 minutes, established patient March 01, 2018 INSTRUCTIONS MEDICATIONS ADMINISTERED No Known Medications MEDICAL (GENERAL) HISTORY Type Description Date Medical History Tobacco abuse Surgical History tonsillectomy age 15 Surgical History cholecystectomy 2009 Surgical History colonoscopy 3 times Surgical History 4 natural births Hospitalization History Hospitalization for surgery only
--- OUTSIDE RECORDS SUMMARY | 2018-08-17 18:09 | XMS REPORT ---
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 Name Role Phone SUZANNE BURNHAM Unavailable PROBLEMS Type Condition ICD9-CM Code KCR52-TU Code Onset Dates Condition Status SNOMED Code Problem Generalized anxiety disorder F41.1 Active 37637354 Problem Other chronic pain G89.29 Active 16965874 Problem History of methamphetamine abuse Z87.898 Active 640365450 Problem Cervical high risk HPV (human papillomavirus) test positive R87.810 Active 650700133 Problem Atyp squam cell of undet signfc cyto smr crvx (ASC-US) R87.610 Active 897903150 Problem Major depressive disorder, recurrent episode, moderate F33.1 Active 481229771 Problem BMI 36.0-36.9,adult Z68.36 Active 426366799 Problem BMI 39.0-39.9,adult Z68.39 Active 434724761 Problem Alkaline phosphatase elevation R74.8 Active 874758581 Problem Irritable bowel syndrome with diarrhea K58.0 Active 910537982 Problem Recurrent major depressive disorder, in partial remission F33.41 Active 28270993 Problem Anxiety F41.9 Active 80958582 ALLERGIES No Information ENCOUNTERS Encounter Location Date Diagnosis [facility] [id number] [place] [address] 48543- 3125 May, Generalized anxiety disorder F41.1 and Major depressive disorder, recurrent episode, moderate F33.1 [facility] [id number] [place] [address] 14612- 3167 Apr, Anxiety F41.9 [facility] [id number] [place] [address] 24129- 1193 Apr, [facility] [id number] [place] [address] 25039- 4229 Apr, Weight loss counseling, encounter for Z71.3 and BMI 36.0- 36.9,adult Z68.36 [facility] [id number] [place] [address] 78552- 8726 04 Apr, 2018 Anxiety F41.9 [facility] [id number] [place] [address] 02392- 9027 March, Other chronic pain G89.29 [facility] [id number] [place] [address] 16969- 4744 March, [facility] [id number] [place] [address] 28592- 4683 March, Generalized anxiety disorder F41.1 and Major depressive disorder, recurrent episode, moderate F33.1 [facility] [id number] [place] [address] 23295- 0037 Jan, Encounter for Depo-Provera contraception Z30.42 [facility] [id number] [place] [address] 22527- 7909 Jan, Generalized anxiety disorder F41.1 and Major depressive disorder, recurrent episode, moderate F33.1 [facility] [id number] [place] [address] 73650- 6526 Dec, Anxiety F41.9 and Recurrent major depressive disorder, in partial remission F33.41 [facility] [id number] [place] [address] 20617- 0462 Nov, [place] [id number] [place] [address] 03885- 4078 Nov, Other chronic pain G89.29 ; Encounter for surveillance of injectable contraceptive Z30.42 ; BMI 39.0-39.9,adult Z68.39 and Encounter for Depo-Provera contraception Z30.42 [facility] [address] [place] [address] 31392- 9692 Sep, Anxiety F41.9 and Recurrent major depressive disorder, in partial remission F33.41 [facility] [id number] [place] [address] 99121- 4501 Aug, Generalized anxiety disorder F41.1 and Major depressive disorder, recurrent episode, moderate F33.1 [facility] [id number] [place] [address] 80388- 6423 Aug, [facility] [id number] [place] [address] 27258- 0837 Aug, Anxiety F41.9 and Major depressive disorder, recurrent episode, moderate F33.1 [facility] [id number] [place] [address] 69577- 3791 25 Jul, 2017 Encounter for immunization Z23 [facility] [id number] [place] [address] 97844- 7687 19 Jul, 2017 [facility] [id number] [place] [address] 84194- 7849 Jul, [facility] [id number] [place] [address] 00131- 5225 14 Jul, 2017 Alkaline phosphatase elevation R74.8 [facility] [address] 55758- 5354 13 Jul, 2017 Encounter for annual physical exam Z00.00 [facility] [id number] [place] [address] 47068- 1662 Jul, [facility] [id number] [place] [address] 99575- 1530 12 Jul, 2017 Routine gynecological examination Z01.419 ; Dysuria R30.0 and Screening breast examination Z12.31 [facility] [id number] [place] [address] 22380- 2912 12 Jul, 2017 Generalized anxiety disorder F41.1 and Major depressive disorder, recurrent episode, moderate F33.1 [facility] [id number] [place] [address] 91863- 8983 08 Jul, 2017 [facility] [address] [place] [address]- 8326 Jun, Generalized anxiety disorder F41.1 and Major depressive disorder, recurrent episode, moderate F33.1 [facility] [id number] [place] [address] 86144- 7780 Jun, Other chronic pain G89.29 [facility] [address] [place] [address] [id number] May, Dental caries K02.9 [facility] [id number] [place] [address] 50401- 1064 May, Generalized anxiety disorder F41.1 and Major depressive disorder, recurrent episode, moderate F33.1 [facility] [id number] [place] [address] [id number] May, Dental examination Z01.20 [facility] [id number] [place] [address] 00691- 7446 March, [facility] [id number] [place] [address] 00402- 1614 March, Generalized anxiety disorder F41.1 and Major depressive disorder, recurrent episode, moderate F33.1 [facility] [address] [place] [address] 59363- 0750 March, Encounter for annual physical exam Z00.00 and Other chronic pain G89.29 [facility] [address] [place] [address]- 6050 Jan, Generalized anxiety disorder F41.1 and Major depressive disorder, recurrent episode, moderate F33.1 [facility] [address] [place] [address] 30647- 8935 Jan, [facility] [id number] [place] [address] 16195- 8690 Dec, Generalized anxiety disorder F41.1 and Major depressive disorder, recurrent episode, moderate F33.1 [facility] [address] [place] [address] 05488- 6333 Dec, Generalized anxiety disorder F41.1 and Major depressive disorder, recurrent episode, moderate F33.1 [facility] [id number] [place] [address] 28617- 0999 Dec, [facility] [id number] [place] [address] 43883- 2760 Dec, Generalized anxiety disorder F41.1 and Major depressive disorder, recurrent episode, moderate F33.1 [facility] [id number] [place] [address] 72926- 3914 Dec, Diarrhea, unspecified type R19.7 ; Irritable bowel syndrome with diarrhea K58.0 and Alkaline phosphatase elevation R74.8 [facility] [id number] [place] [address] 36235- 8888 Dec, Diarrhea, unspecified type R19.7 and Alkaline phosphatase elevation R74.8 [facility] [address] 41819- 7941 Dec, Generalized anxiety disorder F41.1 and Major depressive disorder, recurrent episode, moderate F33.1 [facility] [id number] [place] [address] 57058- 0889 Dec, Low back pain M54.5 [facility] [id number] [place] [address] 11233- 0526 Dec, Generalized anxiety disorder F41.1 and Major depressive disorder, recurrent episode, moderate F33.1 [facility] [id number] [place] [address] 42068- 8243 Dec, Irritable bowel syndrome with diarrhea K58.0 and Diarrhea, unspecified type R19.7 [facility] [address] 75756- 2106 Dec, [facility] [id number] [place] [address] 52938- 6524 Dec, Generalized anxiety disorder F41.1 and Major depressive disorder, recurrent episode, moderate F33.1 [facility] [id number] [place] [address] 30794 -0552 Nov, Cough R05 ; Viral illness B34.9 and Chronic diarrhea K52.9 [facility] [address] 21720- 0387 Nov, Generalized anxiety disorder F41.1 and Major depressive disorder, recurrent episode, moderate F33.1 [facility] [address] 46413- 1480 Nov, Encounter for Depo-Provera contraception Z30.42 [facility] [address] 53165- 9596 Nov, Generalized anxiety disorder F41.1 and Major depressive disorder, recurrent episode, moderate F33.1 [facility] [address] 02162- 4900 Nov, Low back pain M54.5 [facility] [address] 71377- 9407 Oct, Generalized anxiety disorder F41.1 and Major depressive disorder, recurrent episode, moderate F33.1 [facility] [address] 50485- 1586 Sep, Low back pain M54.5 and Other chronic pain G89.29 [facility] [address] 16471- 3029 Sep, Generalized anxiety disorder F41.1 and Major depressive disorder, recurrent episode, moderate F33.1 [facility] [address] 34647- 4102 Sep, Encounter for Depo-Provera contraception Z30.42 [facility] [address] 18921- 1454 Jul, [facility] [address] 13477- 5487 Jul, [facility] [id number] [place] [address] 96785- 0689 Jul, Encounter for immunization Z23 [facility] [address] 46166- 6229 Jun, Encounter for Depo-Provera contraception Z30.42 [facility] [id number] [place] [address] 11599- 2823 Jun, Generalized anxiety disorder F41.1 and Major depressive disorder, recurrent episode, moderate F33.1 [facility] [id number] [place] [address] 70064- 8085 May, Generalized anxiety disorder F41.1 and Major depressive disorder, recurrent episode, moderate F33.1 [facility] [id number] [place] [address] 57572- 5957 Apr, Generalized anxiety disorder F41.1 and Major depressive disorder, recurrent episode, moderate F33.1 [facility] [id number] [place] [address] 46322- 7209 March, Encounter for Depo-Provera contraception Z30.42 [facility] [id number] [place] [address] 64562- 5194 March, Generalized anxiety disorder F41.1 and Major depressive disorder, recurrent episode, moderate F33.1 [facility] [id number] [place] [address] 57440- 2773 Jan, Generalized anxiety disorder F41.1 and Major depressive disorder, recurrent episode, moderate F33.1 [facility] [id number] [place] [address] 51299- 7214 Jan, [facility] [id number] [place] [address] 98941 -4786 Jan, Oral infection K12.2 [facility] [id number] [place] [address] 45219- 7419 Jan, Tobacco abuse Z72.0 and Hypokalemia E87.6 [facility] [address] [place] [address] 37699- 4255 Jan, [facility] [id number] [place] [address] 43950- 5672 Dec, Screening, lipid Z13.220 and Hypokalemia E87.6 [facility] [id number] [place] [address] 71082- 2728 Dec, Screening, lipid Z13.220 ; Screening for diabetes mellitus Z13.1 and Tobacco abuse Z72.0 [place] [id number] [place] [address] 37025- 2988 Dec, Generalized anxiety disorder F41.1 and Major depressive disorder, recurrent episode, moderate F33.1 [place] [id number] [place] [address] 64290- 2279 Dec, Routine follow-up Z39.2 ; Encounter for Depo- Provera contraception Z30.42 ; Atyp squam cell of undet signfc cyto smr crvx ( ASC-US) R87.610 and Cervical high risk human papillomavirus (HPV) DNA test positive R87.810 [place] [id number] [place] [address] 37773- 5711 08 Dec, 2015 Generalized anxiety disorder F41.1 and Major depressive disorder, recurrent episode, moderate F33.1 [address] [place] [address] 76896- 7060 Nov, Unspecified high-risk O09.90 and 39 weeks gestation of Z3A.39 [place] [id number] [place] [address] 72994- 9881 Nov, Unspecified high-risk O09.90 and 38 weeks gestation of Z3A.38 [facility] [id number] [place] [address] 03076- 7560 Nov, Unspecified high-risk O09.90 ; Dental infection K04.7 and 37 weeks gestation of Z3A.[id number] [place] [address] 76620- 2889 Oct, screening for streptococcus B Z36 ; 36 weeks gestation of Z3A.36 and Breech presentation, not applicable or unspecified fetus O32.1XX0 [facility] [id number] [place] [address] 21885- 4602 Oct, Unspecified high-risk O09.90 and 34 weeks gestation of Z3A.34 [facility] [address] 33523- 4205 Oct, 32 weeks gestation of Z3A.32 and Unspecified high- risk O09.90 [facility] [address] 29092- 5694 Sep, Unspecified high-risk O09.90 ; Encounter for immunization Z23 and 30 weeks gestation of Z3A.30 [facility] [address] 10217- 1010 Sep, Generalized anxiety disorder F41.1 and Major depressive disorder, recurrent episode, moderate F33.1 [facility] [address] 38813- 6390 Aug, Unspecified high-risk O09.90 [facility] [id number] [place] [address] 64478- 3534 Aug, Unspecified high-risk O09.90 [facility] [address] [id number] [place] [address] 73171- 4754 Aug, Dental infection K04.7 [facility] [address] 57648- 9114 Aug, Dysuria R30.0 [facility] [address] [id number] [place] [address] 97926- 7749 Aug, Dysuria R30.0 [facility] [address] 17929- 7573 Jul, Influenza vaccine administered V04.81 [facility] [address] [place] [address]- 5341 Jul, Unspecified high-risk V23.9 [facility] [place] [address] [place] [address] 19663- 3856 Jul, Unspecified high-risk V23.9 and ASCUS with positive high risk HPV 796.9 [facility] [id number] [place] [address] 17753- 3948 Jul, [facility] [place] [address] [place] [address] 23115- 2119 Jun, [facility] [id number] [place] [address] 21388- 6372 Jun, Unspecified high-risk V23.9 ; Pap test, as part of routine gynecological examination V76.2 and Screen for STD (sexually transmitted disease) V74.5 [facility] [address] [address]- 8842 Jun, test positive V72.42 ; Unspecified high-risk V23.9 ; UTI in 646.60 and Vomiting 643.90 [facility] [address] [place] [address]- 2708 Jun, [facility] [address] [address]- 8392 Jun, [facility] [address] [place] [address] 34445- 4909 Jun, [facility] [address] [place] [address] 94267- 0073 May, [facility] [id number] [place] [address] 76643- 1376 Apr, [facility] [address] [place] [address] 93806- 2647 Apr, Absence of menstruation 626.0 [facility] [place] [facility] [address] [id number] [place] [address]- 9157 14 Jan, 2015 [facility] [place] [facility] [address] [id number] [place] [address]- 1577 Jan, [facility] [place] [facility] [address] [id number] [place] [address]- 7265 Dec, [facility] [place] [facility] [address] [id number] [place] [address]- 8021 Dec, [facility] [place] [facility] [address] [id number] [place] [address]- 5354 Dec, [facility] [place] [facility] [address] [id number] [place] [address]- 8317 Dec, [facility] [place] [facility] [address] [facility] [id number] [place] [address]- 7792 Nov, [facility] [place] [facility] [address] [id number], [place] [address]- 1874 Nov, [facility] [place] [facility] [address] [facility] [id number] [place] [address]- 9021 Nov, [facility] [place] [facility] [address] [facility] [id number], [place] [address]- 2623 Nov, [facility] [place] [facility] [address] [facility] [id number], [place] [address]- 6857 Nov, [facility] [place] [facility] [address] [id number], [place] [address]- 1136 Nov, [facility] [place] [facility] [address] [id number] [place] [address]- 6147 Nov, [facility] [place] [facility] [address] [id number], [place] [address]- 8954 Nov, [facility] [place] [facility] [address] [facility] [id number] [place] [address]- 7408 Oct, [facility] [place] [facility] [address] [id number] [place] [address]- 3774 Oct, [facility] [place] [facility] [address] [id number] [place] [address]- 5471 Oct, [facility] [place] [facility] [address] [id number] [place] 3298 Oct, [facility] [place] [facility] [address] [id number] [place] [address]- 4573 Sep, [facility] [place] [facility] [address] [id number] [place] [address]- 6068 Sep, [facility] [place] [facility] [address] [id number] [place] 7932 Jul, [facility] [place] [facility] [address] [id number] [place] [address]- 2991 Jul, [facility] [place] [facility] [address] [id number] [place] [address]- 3233 Apr, [facility] [place] [facility] [address] [id number] [place] [address]- 2138 Apr, [facility] [place] [facility] [address] [id number] [place] [address]- 0987 March, [facility] [place] [facility] [address] [id number] [place] [address]- 2613 March, [facility] [place] [facility] [address] [id number] [place] [address]- 2373 March, [facility] [place] [facility] [address] [id number] [place] [address]- 9650 March, [facility] [place] [facility] [address] [id number] [place] [address]- 7815 Nov, [facility] [place] [facility] [address] [id number] [place] 2614 Nov, [facility] [place] [facility] [address] [id number] [place] [address]- 6138 Nov, [facility] [place] [facility] [address] [id number] [place] [address]- 7696 Nov, [facility] [address] [id number] [place] [address]- 7642 Nov, [facility] [address] [id number] [place] [address]- 0528 Nov, [facility] [address] [id number] [place] [address]- 4128 Nov, [facility] [address] [id number] [place] [address]- 7150 Nov, [facility] [address] [id number] [place] [address]- 9892 Nov, [facility] [address] [id number] [place] [address]- 9726 Nov, [facility] [address] [id number] [place] [address]- 0738 Nov, [facility] [address] [id number] [place] [address]- 1945 Oct, [facility] [address] [id number] [place] [address]- 9587 Oct, [facility] [address] [id number] [place] [address]- 8844 16 Oct, 2013 [facility] [address] [id number] [place] [address]- 2881 13 Oct, 2013 [facility] [address] [id number] [place] [address]- 9158 Oct, [facility] [place] [facility] [address] [id number] [place] [address]- 7383 12 Oct, 2013 [facility] [place] [facility] [address] [id number] [place] [address]- 0011 11 Oct, 2013 [facility] [address] [id number] [place] [address]- 5608 Oct, [facility] [place] [facility] [address] [id number] [place] [address]- 9996 Oct, [facility] [place] [facility] [address] [id number] [place] [address]- 4309 Oct, [facility] [place] [facility] [address] [id number] [place] 3607 Oct, [facility] [place] [facility] [address] [id number] [place] 3589 Oct, [facility] [place] [facility] [address] [id number] [place] [address]- 2938 Sep, [facility] [place] [facility] [address] [id number] [place] [address] Sep, [facility] [place] [facility] [address] [id number] [place] [address] [address] Sep, [facility] [place] [facility] [address] [id number] [place] [address] Sep, [facility] [place] [facility] [address] [id number] [place] [address] Aug, [facility] [place] [facility] [address] [id number] [place] [address] Aug, [facility] [place] [facility] [address] [id number], [place] [address] Aug, [facility] [place] [facility] [address] [id number], [place] [address] Aug, [facility] [place] [facility] [address] [id number] [place] [address] Jun, [facility] [place] [facility] [address] [id number], [place] [address] Jun, [facility] [place] [facility] [address] [id number] [place] [address] Apr, [facility] [place] [facility] [address] [id number] [place] [address] 14 Mar, 2013 [facility] [address] [id number] [place] [address] 17 Jan, 2013 [facility] [address] [id number] [place] [address] 16 Jan, 2013 [facility] [address] [id number] [place] [address] 15 Jan, 2013 [facility] [address] [id number] [place] [address] 11 Jan, 2013 [facility] [address] [id number] [place] [address] Dec, [facility] [address] [id number] [place] [address] Dec, [facility] [address] [id number] [place] [address] Dec, [facility] [address] [id number] [place] [address] Dec, [facility] [address] [id number] [place] [address] Oct, [facility] [address] [id number] [place] [address] [address] Oct, [facility] [address] [id number] [place] [address] Oct, [facility] [address] [id number] [place] [address] Oct, [facility] [place] [facility] [address] [id number] [place] [address] Oct, [facility] [place] [facility] [address] [id number] [place] [address] Oct, [facility] [address] [id number] [place] [address] Sep, [facility] [place] [facility] [address] [id number] [place] [address] Sep, [facility] [place] [facility] [address] [id number] [place] [address] Aug, [facility] [place] [facility] [address] [id number] [place] [address] Aug, [facility] [place] [facility] [address] [id number] [place] [address] Aug, [facility] [place] [facility] [address] [id number] [place] [address] Jul, [facility] [place] [facility] [address] [id number] [place] [address] Jul, [facility] [place] [facility] [address] [id number] [place] [address] Jul, [facility] [place] [facility] [address] [id number] [place] [address] Jul, [facility] [place] [facility] [address] [id number] [place] [address] Jun, [facility] [place] [facility] [address] [id number] [place] [address] Jun, [facility] [place] [facility] [address] [id number] [place] [address] Jun, [facility] [place] [facility] [address] [id number], [place] [address] Jun, [facility] [place] [facility] [address] [id number] [place] [address] Jun, [facility] [place] [facility] [address] [id number] [place] [address] May, [facility] [place] [facility] [address] [id number] [place] [address] May, [facility] [place] [facility] [address] [id number] [place] [address] Apr, [facility] [place] [facility] [address] [id number] [place] [address]- [address] Apr, [facility] [place] [facility] [address] [id number] [place] [address] Apr, [facility] [place] [facility] [address] [id number] [place] [address] March, [facility] [place] [facility] [address] [id number] [place] [address] March, [facility] [place] [facility] [address] [id number] [place] [address] March, [facility] [place] [facility] [address] [id number] [place] [address] Jan, [facility] [place] [facility] [address] [id number] [place] [address] Dec, [facility] [place] [facility] [address] [id number] [place] [address] Dec, [facility] [place] [facility] [address] [id number] [place] [address] Dec, [facility] [place] [facility] [address] [facility] [id number] [place] [address] Dec, [facility] [place] [facility] [address] [id number] [place] [address] Dec, [facility] [place] [facility] [address] [id number] [place] [address] 16 Dec, 2011 [facility] [place] [facility] [address] [id number] [place] [address] Dec, [facility] [place] [facility] [address] [id number] [place] [address] 29 Dec, 2011 [facility] [place] [facility] [address] [id number] [place] [address] Dec, [facility] [place] [facility] [address] [id number] [place] [address] Dec, [facility] [place] [facility] [address] [id number] [place] [address] 13 Dec, 2011 [facility] [place] [facility] [address] [id number] [place] [address]- [address] 11 Dec, 2011 [facility] [place] [facility] [address] [id number] [place] [address]- [address] Dec, [facility] [place] [facility] [address] [id number] [place] [address] 30 Nov, 2011 [facility] [place] [facility] [address] [id number] [place] [address] Nov, [facility] [place] [facility] [address] [id number] [place] [address]- [address] Nov, [facility] [place] [facility] [address] [id number] [place] [address] Nov, [facility] [place] [facility] [address] [id number] [place] [address] Nov, [facility] [place] [facility] [address] [id number] [place] [address]- [address] Nov, [facility] [place] [facility] [address] [id number] [place] [address] Nov, [facility] [place] [facility] [address] [id number] [place] [address] Nov, [facility] [place] [facility] [address] [id number] [place] [address] Oct, [facility] [place] [facility] [address] [id number] [place] [address] Oct, [facility] [place] [facility] [address] [id number] [place] [address] Oct, [facility] [place] [facility] [address] [id number], [place] [address] 15 Oct, 2011 [facility] [place] [facility] [address] [id number] [place] [address]- [address]36 13 Oct, 2011 [facility] [place] [facility] [address] [id number] [place] [address]- [address] 13 Oct, 2011 [facility] [place] [facility] [address] [facility] [id number] [place] [address]- [address] 07 Oct, 2011 [facility] [place] [facility] [address] [id number] [place] [address]- [address] 23 Sep, 2011 [facility] [place] [facility] [address] [id number] [place] [address], [place] [address]- [address] 18 Sep, 2011 [facility] [place] [facility] [address] [id number] [place] [address]- [address] 18 Sep, 2011 [facility] [place] [facility] [address] [facility] [id number], [place] [address]- [address] 16 Sep, 2011 [facility] [place] [facility] [address] [id number] [place] [address]- [address] 16 Sep, 2011 [facility] [place] [facility] [address] [facility] [id number] [place] [address]- [address] 08 Sep, 2011 [facility] [place] [facility] [address] [facility] [id number] [place] [address]- [address] Sep, [facility] [place] [facility] [address] [id number], [place] [address] Aug, [facility] [place] [facility] [address] [id number], [place] [address] Aug, [facility] [place] [facility] [address] [id number], [place] [address] Jun, [facility] [place] [facility] [address] [id number] [place] [address]- [address] Oct, [facility] [place] [facility] [address] [facility] [id number], [place] [address] 19 Oct, 2010 [facility] [place] [facility] [address] [id number] [place] [address]- [address] 08 Oct, 2010 [facility] [place] [facility] [address] [id number] [place] [address]- [address]446 16 Dec, 2009 [facility] [place] [facility] [address] [id number] [place] [address] 2546 11 Dec, 2009 [facility] [place] [facility] [address] [id number] [place] [address] 2546 18 Dec, 2009 [facility] [place] [facility] [address] [id number] [place] [address] 2546 11 Dec, 2009 [facility] [place] [facility] [address] [id number] [place] [address]- 2016 Nov, [facility] [place] [facility] [address] [id number] [place] [address]- [address] 29 Oct, 2009 [facility] [place] [facility] [address] [id number] [place] [address]- 3966 17 Oct, 2009 [facility] [place] [facility] [address] [id number] [place] [address]- 6[address] 15 Oct, 2009 [facility] [place] [facility] [address] [id number] [place] [address]- 6760 15 Oct, 2009 [facility] [place] [facility] [address] [id number] [place] [address] 2542 24 Sep, 2009 [facility] [place] [facility] [address] [id number], [place] [address] 2546 03 Sep, 2009 [facility] [place] [facility] [address] [id number] [place] [address] 2541 29 Aug, 2009 [facility] [place] [facility] [address] [id number] [place] [address] 2546 23 Aug, 2009 [facility] [place] [facility] [address] [id number] [place] [address] 2546 13 Aug, 2009 [facility] [place] [facility] [address] [id number] [place] [address] Aug, [facility] [address] [facility] [id number] [place] [address] Aug, [facility] [address] [facility] [id number] [place] [address]- [address] Jun, IMMUNIZATIONS No Known Immunizations SOCIAL HISTORY Never Assessed REASON FOR VISIT f/u PLAN OF CARE Activity Details Follow Up 3 Weeks Reason: F/U VITAL SIGNS MEDICATIONS Unknown Medications RESULTS No Results PROCEDURES Procedure Date Ordered Result Body Site Psychotherapy, patient &/family, 30 minutes, established patient February 09, 2018 INSTRUCTIONS MEDICATIONS ADMINISTERED No Known Medications MEDICAL (GENERAL) HISTORY Type Description Date Medical History Tobacco abuse Surgical History tonsillectomy age 15 Surgical History cholecystectomy 2009 Surgical History colonoscopy 3 times Surgical History 4 natural births Hospitalization History Hospitalization for surgery only
--- OUTSIDE RECORDS SUMMARY | 2018-08-17 18:09 | XMS REPORT ---
Author Author CARLOSFABY GRIGGS [facility] Address [address] [place] [address] Care Team Providers Care Produce Weigher Name Role Phone FABY GONZALEZ Unavailable PROBLEMS Type Condition ICD9-CM Code EKQ27-SQ Code Onset Dates Condition Status SNOMED Code Problem Generalized anxiety disorder F41.1 Active 57012461 Problem Other chronic pain G89.29 Active 70183324 Problem History of methamphetamine abuse Z87.898 Active 452508001 Problem Cervical high risk HPV (human papillomavirus) test positive R87.810 Active 151175619 Problem Atyp squam cell of undet signfc cyto smr crvx (ASC-US) R87.610 Active 533671987 Problem Major depressive disorder, recurrent episode, moderate F33.1 Active 808641498 Problem BMI 36.0-36.9,adult Z68.36 Active 828353907 Problem BMI 39.0-39.9,adult Z68.39 Active 152583986 Problem Alkaline phosphatase elevation R74.8 Active 136133034 Problem Irritable bowel syndrome with diarrhea K58.0 Active 330162768 Problem Recurrent major depressive disorder, in partial remission F33.41 Active 36123308 Problem Anxiety F41.9 Active 29478777 ALLERGIES No Information ENCOUNTERS Encounter Location Date Diagnosis [facility] [id number] [place] [address] 36096- 3694 May, Generalized anxiety disorder F41.1 and Major depressive disorder, recurrent episode, moderate F33.1 [facility] [id number] [place] [address] 95500- 0923 Apr, Anxiety F41.9 [facility] [id number] [place] [address] 11478- 5694 Apr, [facility] [id number] [place] [address] 65762- 5065 Apr, Weight loss counseling, encounter for Z71.3 and BMI 36.0- 36.9,adult Z68.36 [facility] [id number] [place] [address] 47641- 7964 04 Apr, 2018 Anxiety F41.9 [facility] [id number] [place] [address] 89786- 8229 March, Other chronic pain G89.29 [facility] [id number] [place] [address] 45635- 4070 March, [facility] [id number] [place] [address] 57432- 2568 March, Generalized anxiety disorder F41.1 and Major depressive disorder, recurrent episode, moderate F33.1 [facility] [id number] [place] [address] 85385- 6397 Jan, Encounter for Depo-Provera contraception Z30.42 [facility] [id number] [place] [address] 47117- 2986 Jan, Generalized anxiety disorder F41.1 and Major depressive disorder, recurrent episode, moderate F33.1 [facility] [id number] [place] [address] 33433- 1146 Dec, Anxiety F41.9 and Recurrent major depressive disorder, in partial remission F33.41 [facility] [id number] [place] [address] 31464- 7592 Nov, [place] [id number] [place] [address] 20390- 6100 Nov, Other chronic pain G89.29 ; Encounter for surveillance of injectable contraceptive Z30.42 ; BMI 39.0-39.9,adult Z68.39 and Encounter for Depo-Provera contraception Z30.42 [facility] [id number] [place] [address] 90366- 8696 Sep, Anxiety F41.9 and Recurrent major depressive disorder, in partial remission F33.41 [facility] [id number] [place] [address] 84541- 8889 Aug, Generalized anxiety disorder F41.1 and Major depressive disorder, recurrent episode, moderate F33.1 [facility] [id number] [place] [address] 26792- 6198 Aug, [facility] [id number] [place] [address] 70056- 8318 Aug, Anxiety F41.9 and Major depressive disorder, recurrent episode, moderate F33.1 [facility] [id number] [place] [address] 95356- 2619 25 Jul, 2017 Encounter for immunization Z23 [facility] [id number] [place] [address] 95773- 1990 19 Jul, 2017 [facility] [id number] [place] [address] 55637- 7916 Jul, [facility] [id number] [place] [address] 98534- 0275 14 Jul, 2017 Alkaline phosphatase elevation R74.8 [facility] [address] 31476- 2045 13 Jul, 2017 Encounter for annual physical exam Z00.00 [facility] [id number] [place] [address] 21047- 4801 Jul, [facility] [id number] [place] [address] 88492- 0143 12 Jul, 2017 Routine gynecological examination Z01.419 ; Dysuria R30.0 and Screening breast examination Z12.31 [facility] [id number] [place] [address] 68568- 9964 12 Jul, 2017 Generalized anxiety disorder F41.1 and Major depressive disorder, recurrent episode, moderate F33.1 [facility] [id number] [place] [address] 52122- 7103 08 Jul, 2017 [facility] [facility] [address] [place] [address]- 6645 Jun, Generalized anxiety disorder F41.1 and Major depressive disorder, recurrent episode, moderate F33.1 [facility] [id number] [place] [address] 26805- 9080 Jun, Other chronic pain G89.29 [facility] [id number] [place] [address] [id number] May, Dental caries K02.9 [facility] [id number] [place] [address] 01340- 3568 May, Generalized anxiety disorder F41.1 and Major depressive disorder, recurrent episode, moderate F33.1 [facility] [id number] [place] [address] [id number] May, Dental examination Z01.20 [facility] [id number] [place] [address] 33062- 8460 March, [facility] [id number] [place] [address] 93207- 0127 March, Generalized anxiety disorder F41.1 and Major depressive disorder, recurrent episode, moderate F33.1 [facility] [facility] [id number] [place] [address] 24328- 2469 March, Encounter for annual physical exam Z00.00 and Other chronic pain G89.29 [facility] [address] [address]- 4704 Jan, Generalized anxiety disorder F41.1 and Major depressive disorder, recurrent episode, moderate F33.1 [facility] [id number] [place] [address] 91453- 2460 Jan, [facility] [id number] [place] [address] 92052- 2334 Dec, Generalized anxiety disorder F41.1 and Major depressive disorder, recurrent episode, moderate F33.1 [facility] [id number] [place] [address] 72050- 2412 Dec, Generalized anxiety disorder F41.1 and Major depressive disorder, recurrent episode, moderate F33.1 [facility] [id number] [place] [address] 17182- 8194 Dec, [facility] [id number] [place] [address] 32078- 2654 Dec, Generalized anxiety disorder F41.1 and Major depressive disorder, recurrent episode, moderate F33.1 [facility] [facility] [id number] [place] [address] 02191- 8735 Dec, Diarrhea, unspecified type R19.7 ; Irritable bowel syndrome with diarrhea K58.0 and Alkaline phosphatase elevation R74.8 [facility] [facility] [id number] [place] [address] 15534- 3877 Dec, Diarrhea, unspecified type R19.7 and Alkaline phosphatase elevation R74.8 [place] [facility] [address] 93382- 1935 Dec, Generalized anxiety disorder F41.1 and Major depressive disorder, recurrent episode, moderate F33.1 [facility] [facility] [id number] [place] [address] 06211- 7389 Dec, Low back pain M54.5 [facility] [id number] [place] [address] 06359- 7571 Dec, Generalized anxiety disorder F41.1 and Major depressive disorder, recurrent episode, moderate F33.1 [facility] [id number] [place] [address] 28903- 2823 Dec, Irritable bowel syndrome with diarrhea K58.0 and Diarrhea, unspecified type R19.7 [facility] [facility] [address] 11753- 9015 Dec, [facility] [facility] [id number] [place] [address] 80754- 1288 Dec, Generalized anxiety disorder F41.1 and Major depressive disorder, recurrent episode, moderate F33.1 [facility] [id number] [place] [address] 74489 -3536 Nov, Cough R05 ; Viral illness B34.9 and Chronic diarrhea K52.9 [facility] [address] 16862- 1117 Nov, Generalized anxiety disorder F41.1 and Major depressive disorder, recurrent episode, moderate F33.1 [facility] [address] 28213- 9822 Nov, Encounter for Depo-Provera contraception Z30.42 [facility] [facility] [address] 97051- 4008 Nov, Generalized anxiety disorder F41.1 and Major depressive disorder, recurrent episode, moderate F33.1 [facility] [facility] [address] 33507- 2490 Nov, Low back pain M54.5 [facility] [facility] [address] 23156- 6589 Oct, Generalized anxiety disorder F41.1 and Major depressive disorder, recurrent episode, moderate F33.1 [facility] [address] 19529- 3191 Sep, Low back pain M54.5 and Other chronic pain G89.29 [facility] [address] 71366- 4680 Sep, Generalized anxiety disorder F41.1 and Major depressive disorder, recurrent episode, moderate F33.1 [facility] [facility] [address] 51691- 7499 Sep, Encounter for Depo-Provera contraception Z30.42 [facility] [address] 75094- 8325 Jul, [facility] [address] 84094- 8868 Jul, [place] [id number] [place] [address] 63882- 0880 Jul, Encounter for immunization Z23 [place] [address] 88713- 2077 Jun, Encounter for Depo-Provera contraception Z30.42 [facility] [id number] [place] [address] 49202- 4451 Jun, Generalized anxiety disorder F41.1 and Major depressive disorder, recurrent episode, moderate F33.1 [facility] [id number] [place] [address] 40049- 4211 May, Generalized anxiety disorder F41.1 and Major depressive disorder, recurrent episode, moderate F33.1 [facility] [facility] [id number] [place] [address] 50213- 0070 Apr, Generalized anxiety disorder F41.1 and Major depressive disorder, recurrent episode, moderate F33.1 [place] [facility] [id number] [place] [address] 01304- 1803 March, Encounter for Depo-Provera contraception Z30.42 [place] [id number] [place] [address] 83553- 7789 March, Generalized anxiety disorder F41.1 and Major depressive disorder, recurrent episode, moderate F33.1 [place] [id number] [place] [address] 55582- 4551 Jan, Generalized anxiety disorder F41.1 and Major depressive disorder, recurrent episode, moderate F33.1 [place] [id number] [place] [address] 01359- 2532 Jan, [facility] [id number] [place] [address] 30520 -8490 Jan, Oral infection K12.2 [facility] [facility] [id number] [place] [address] 47418- 9368 Jan, Tobacco abuse Z72.0 and Hypokalemia E87.6 [facility] [id number] [place] [address] 00092- 2275 Jan, [place] [facility] [id number] [place] [address] 28744- 7550 Dec, Screening, lipid Z13.220 and Hypokalemia E87.6 [place] [id number] [place] [address] 72692- 6853 Dec, Screening, lipid Z13.220 ; Screening for diabetes mellitus Z13.1 and Tobacco abuse Z72.0 [place] [id number] [place] [address] 44591- 5942 Dec, Generalized anxiety disorder F41.1 and Major depressive disorder, recurrent episode, moderate F33.1 [place] [id number] [place] [address] 32042- 6604 Dec, Routine follow-up Z39.2 ; Encounter for Depo- Provera contraception Z30.42 ; Atyp squam cell of undet signfc cyto smr crvx ( ASC-US) R87.610 and Cervical high risk human papillomavirus (HPV) DNA test positive R87.810 [place] [id number] [place] [address] 20206- 3125 08 Dec, 2015 Generalized anxiety disorder F41.1 and Major depressive disorder, recurrent episode, moderate F33.1 [address] [place] [address] 11904- 9508 Nov, Unspecified high-risk O09.90 and 39 weeks gestation of Z3A.39 [place] [id number] [place] [address] 42331- 9470 Nov, Unspecified high-risk O09.90 and 38 weeks gestation of Z3A.38 [place] [id number] [place] [address] 16422- 5793 Nov, Unspecified high-risk O09.90 ; Dental infection K04.7 and 37 weeks gestation of Z3A.[id number] [place] [address] 33914- 3202 Oct, screening for streptococcus B Z36 ; 36 weeks gestation of Z3A.36 and Breech presentation, not applicable or unspecified fetus O32.1XX0 [place] [id number] [place] [address] 29168- 0421 Oct, Unspecified high-risk O09.90 and 34 weeks gestation of Z3A.34 [place] [address] 08242- 9341 Oct, 32 weeks gestation of Z3A.32 and Unspecified high- risk O09.90 [place] [address] 10214- 9890 Sep, Unspecified high-risk O09.90 ; Encounter for immunization Z23 and 30 weeks gestation of Z3A.30 [place] [address] 15284- 6050 Sep, Generalized anxiety disorder F41.1 and Major depressive disorder, recurrent episode, moderate F33.1 [place] [facility] [address] 64727- 1385 Aug, Unspecified high-risk O09.90 [place] [id number] [place] [address] 22827- 1925 Aug, Unspecified high-risk O09.90 [place] [id number] [place] [address] 10982- 5328 Aug, Dental infection K04.7 [place] [address] 60901- 0357 Aug, Dysuria R30.0 [place] [id number] [place] [address] 73224- 4265 Aug, Dysuria R30.0 [place] [address] 57511- 4578 Jul, Influenza vaccine administered V04.81 [place] [address] [address]- 8456 Jul, Unspecified high-risk V23.9 [place] [address] [place] [address] 71470- 8614 Jul, Unspecified high-risk V23.9 and ASCUS with positive high risk HPV 796.9 [place] [id number] [place] [address] 08318- 5498 Jul, [place] [address] [place] [address] 28088- 3676 Jun, [place] [id number] [place] [address] 15569- 4261 Jun, Unspecified high-risk V23.9 ; Pap test, as part of routine gynecological examination V76.2 and Screen for STD (sexually transmitted disease) V74.5 [place] [address] [address]- 3568 Jun, test positive V72.42 ; Unspecified high-risk V23.9 ; UTI in 646.60 and Vomiting 643.90 [place] [address] [address]- 9965 Jun, [place] [address] [address]- 3107 Jun, [place] [address] [place] [address] 16701- 8995 Jun, [place] [address] [place] [address] 49582- 4466 May, [place] [id number] [place] [address] 29053- 4103 Apr, [place] [address] [place] [address] 91877- 8525 Apr, Absence of menstruation 626.0 [facility] [place] [facility] [address] [id number] [place] [address]- 2725 14 Jan, 2015 [facility] [place] [facility] [address] [id number] [place] [address]- 2388 Jan, [facility] [place] [facility] [address] [id number] [place] [address]- 2778 Dec, [facility] [place] [facility] [address] [id number] [place] [address]- 9847 Dec, [facility] [place] [facility] [address] [id number] [place] [address]- 7937 Dec, [facility] [place] [facility] [address] [id number] [place] [address]- 2807 Dec, [facility] [place] [facility] [address] [facility] [id number] [place] [address]- 5382 Nov, [facility] [place] [facility] [address] [id number] [address]- 0524 Nov, [facility] [place] [facility] [address] [facility] [id number] [place] [address]- 7783 Nov, [facility] [place] [facility] [address] [facility] [id number] [address]- 3230 Nov, [facility] [place] [facility] [address] [facility] [id number] [address]- 5190 Nov, [facility] [place] [facility] [address] [id number] [address]- 2721 Nov, [facility] [place] [facility] [address] [id number] [place] [address]- 5196 Nov, [facility] [place] [facility] [address] [id number] [address]- 9994 Nov, [facility] [place] [facility] [address] [facility] [id number] [place] [address]- 6357 Oct, [facility] [place] [facility] [address] [id number] [place] [address]- 5678 Oct, [facility] [place] [facility] [address] [id number] [place] [address]- 5887 Oct, [facility] [place] [facility] [address] [id number] [place] 4994 Oct, [facility] [place] [facility] [address] [id number] [place] [address]- 4259 Sep, [facility] [place] [facility] [address] [id number] [place] [address]- 5566 Sep, [facility] [place] [facility] [address] [id number] [place] 0952 Jul, [facility] [place] [facility] [address] [id number] [place] [address]- 1607 Jul, [facility] [place] [facility] [address] [id number] [place] [address]- 7955 Apr, [facility] [place] [facility] [address] [id number] [place] [address]- 2838 Apr, [facility] [place] [facility] [address] [id number] [place] [address]- 6735 March, [facility] [place] [facility] [address] [id number] [place] [address]- 2421 March, [facility] [place] [facility] [address] [id number] [place] [address]- 6563 March, [facility] [place] [facility] [address] [id number] [place] [address]- 1967 March, [facility] [place] [facility] [address] [id number] [place] [address]- 7187 Nov, [facility] [place] [facility] [address] [id number] [place] 7591 Nov, [facility] [place] [facility] [address] [id number] [place] [address]- 3679 Nov, [facility] [place] [facility] [address] [id number] [place] [address]- 9265 Nov, [facility] [address] [id number] [place] [address]- 2173 Nov, [facility] [address] [id number] [place] [address]- 1949 Nov, [facility] [address] [id number] [place] [address]- 7332 Nov, [facility] [address] [id number] [place] [address]- 5740 Nov, [facility] [address] [id number] [place] [address]- 2138 Nov, [facility] [address] [id number] [place] [address]- 2912 Nov, [facility] [address] [id number] [place] [address]- 0203 Nov, [facility] [address] [id number] [place] [address]- 0701 Oct, [facility] [address] [id number] [place] [address]- 8541 Oct, [facility] [address] [id number] [place] [address]- 6969 16 Oct, 2013 [facility] [address] [id number] [place] [address]- 4263 13 Oct, 2013 [facility] [address] [id number] [place] [address]- 6045 Oct, [facility] [place] [facility] [address] [id number] [place] [address]- 4689 12 Oct, 2013 [facility] [place] [facility] [address] [id number] [place] [address]- 2628 11 Oct, 2013 [facility] [address] [id number] [place] [address]- 6336 Oct, [facility] [place] [facility] [address] [id number] [place] [address]- 6729 Oct, [facility] [place] [facility] [address] [id number] [place] [address]- 6318 Oct, [facility] [place] [facility] [address] [id number] [place] 0580 Oct, [facility] [place] [facility] [address] [id number] [place] 0198 Oct, [facility] [place] [facility] [address] [id number] [place] [address]- 0461 Sep, [facility] [place] [facility] [address] [id number] [place] [address]- 8235 Sep, [facility] [place] [facility] [address] [id number] [place] 2923 Sep, [facility] [place] [facility] [address] [id number] [place] [address] Sep, [facility] [place] [facility] [address] [id number] [place] [address] Aug, [facility] [place] [facility] [address] [id number] [place] [address] Aug, [facility] [place] [facility] [address] [id number] [address] Aug, [facility] [place] [facility] [address] [id number] [address] Aug, [facility] [place] [facility] [address] [id number] [place] [address] Jun, [facility] [place] [facility] [address] [id number] [address] Jun, [facility] [place] [facility] [address] [id number] [place] [address] Apr, [facility] [place] [facility] [address] [id number] [place] [address] 14 Mar, 2013 [facility] [address] [id number] [place] [address] 17 Jan, 2013 [facility] [address] [id number] [place] [address] 16 Jan, 2013 [facility] [address] [id number] [place] [address] 15 Jan, 2013 [facility] [address] [id number] [place] [address] 11 Jan, 2013 [facility] [address] [id number] [place] [address] Dec, [facility] [address] [id number] [place] [address] Dec, [facility] [address] [id number] [place] [address] Dec, [facility] [address] [id number] [place] [address] Dec, [facility] [address] [id number] [place] [address] Oct, [facility] [address] [id number] [place] Oct, [facility] [address] [id number] [place] [address] Oct, [facility] [address] [id number] [place] [address] Oct, [facility] [place] [facility] [address] [id number] [place] [address] Oct, [facility] [place] [facility] [address] [id number] [place] [address] Oct, [facility] [address] [id number] [place] [address] Sep, [facility] [place] [facility] [address] [id number] [place] [address] Sep, [facility] [place] [facility] [address] [id number] [place] [address] Aug, [facility] [place] [facility] [address] [id number] [place] [address] Aug, [facility] [place] [facility] [address] [id number] [place] [address] Aug, [facility] [place] [facility] [address] [id number] [place] [address] Jul, [facility] [place] [facility] [address] [id number] [place] [address]- [address] Jul, [facility] [place] [facility] [address] [id number] [place] [address] Jul, [facility] [place] [facility] [address] [id number] [place] [address] Jul, [facility] [place] [facility] [address] [id number] [place] [address] Jun, [facility] [place] [facility] [address] [id number] [place] [address] Jun, [facility] [place] [facility] [address] [id number] [place] [address] Jun, [facility] [place] [facility] [address] [id number] [address] Jun, [facility] [place] [facility] [address] [id number] [place] [address] Jun, [facility] [place] [facility] [address] [id number] [place] [address] May, [facility] [place] [facility] [address] [id number] [place] [address] May, [facility] [place] [facility] [address] [id number] [place] [address] Apr, [facility] [place] [facility] [address] [id number] [place] [address] Apr, [facility] [place] [facility] [address] [id number] [place] [address] Apr, [facility] [place] [facility] [address] [id number] [place] [address] March, [facility] [place] [facility] [address] [id number] [place] [address] March, [facility] [place] [facility] [address] [id number] [place] [address] March, [facility] [place] [facility] [address] [id number] [place] [address] Jan, [facility] [place] [facility] [address] [id number] [place] [address] Dec, [facility] [place] [facility] [address] [id number] [place] [address]- [address] Dec, [facility] [place] [facility] [address] [id number] [place] [address]- [address] Dec, [facility] [place] [facility] [address] [facility] [id number] [place] [address] Dec, [facility] [place] [facility] [address] [id number] [place] [address] Dec, [facility] [place] [facility] [address] [id number] [place] [address]40 16 Dec, 2011 [facility] [place] [facility] [address] [id number] [place] [address] Dec, [facility] [place] [facility] [address] [id number] [place] [address] 29 Dec, 2011 [facility] [place] [facility] [address] [id number] [place] [address] Dec, [facility] [place] [facility] [address] [id number] [place] [address] Dec, [facility] [place] [facility] [address] [id number] [place] [address]- [address] 13 Dec, 2011 [facility] [place] [facility] [address] [id number] [place] [address] 11 Dec, 2011 [facility] [place] [facility] [address] [id number] [place] [address] Dec, [facility] [place] [facility] [address] [id number] [place] [address] 30 Nov, 2011 [facility] [place] [facility] [address] [id number] [place] [address]- [address] Nov, [facility] [place] [facility] [address] [id number] [place] [address] Nov, [facility] [place] [facility] [address] [id number] [place] [address]- [address] Nov, [facility] [place] [facility] [address] [id number] [place] [address] Nov, [facility] [place] [facility] [address] [id number] [place] [address] Nov, [facility] [place] [facility] [address] [id number] [place] [address] Nov, [facility] [place] [facility] [address] [id number] [place] [address] 39[address] Nov, [facility] [place] [facility] [address] [id number] [place] [address] 1134 Oct, [facility] [place] [facility] [address] [id number] [place] [address] Oct, [facility] [place] [facility] [address] [id number] [place] [address] Oct, [facility] [place] [facility] [address] [id number] [address] 15 Oct, 2011 [facility] [place] [facility] [address] [id number] [place] [address] 13 Oct, 2011 [facility] [place] [facility] [address] [id number] [place] [address]- [address] 13 Oct, 2011 [facility] [place] [facility] [address] [facility] [id number] [place] [address] 07 Oct, 2011 [facility] [place] [facility] [address] [id number] [place] [address]- [address]81 23 Sep, 2011 [facility] [place] [facility] [address] [id number] [place] [address], [place] [address]- [address] 18 Sep, 2011 [facility] [place] [facility] [address] [id number] [place] [address] 18 Sep, 2011 [facility] [place] [facility] [address] [facility] [id number] [address] 16 Sep, 2011 [facility] [place] [facility] [address] [id number] [place] [address]- 4105 16 Sep, 2011 [facility] [place] [facility] [address] [facility] [id number] [place] [address] 08 Sep, 2011 [facility] [place] [facility] [address] [facility] [id number] [place] [address] 1734 Sep, [facility] [place] [facility] [address] [id number], [place] [address] Aug, [facility] [place] [facility] [address] [id number], [place] [address] Aug, [facility] [place] [facility] [address] [id number], [place] [address] Jun, [facility] [place] [facility] [address] [id number] [place] [address] 47[address] Oct, [facility] [place] [facility] [address] [facility] [id number], [place] [address] 19 Oct, 2010 [facility] [place] [facility] [address] [id number] [place] [address]- [address] 08 Oct, 2010 [facility] [place] [facility] [address] [id number] [place] [address]- [address]396 16 Dec, 2009 [facility] [place] [facility] [address] [id number] [place] [address] 2546 11 Dec, 2009 [facility] [place] [facility] [address] [id number] [place] [address] 2546 18 Dec, 2009 [facility] [place] [facility] [address] [id number] [place] [address] 2546 11 Dec, 2009 [facility] [place] [facility] [address] [id number] [place] [address]- 3626 Nov, [facility] [place] [facility] [address] [id number] [place] [address]- 9044 29 Oct, 2009 [facility] [place] [facility] [address] [id number] [place] [address]- 3666 17 Oct, 2009 [facility] [place] [facility] [address] [id number] [place] [address]- 9524 15 Oct, 2009 [facility] [place] [facility] [address] [id number] [place] [address]- [address]005 15 Oct, 2009 [facility] [place] [facility] [address] [id number] [place] [address] 2548 24 Sep, 2009 [facility] [place] [facility] [address] [id number], [place] [address]46 03 Sep, 2009 [facility] [place] [facility] [address] [id number] [place] [address] 2544 29 Aug, 2009 [facility] [place] [facility] [address] [id number] [place] [address] 2546 23 Aug, 2009 [facility] [place] [facility] [address] [id number] [place] [address] 2546 13 Aug, 2009 [facility] [place] [facility] [address] [id number] [place] [address] 365 Aug, [facility] [address] [facility] [id number] [place] [address] Aug, [facility] [address] [facility] [id number] [place] [address] Jun, IMMUNIZATIONS Vaccine Route Administration Date Status DEPO PROVERA (150 MG/ML) IM Intramuscular February 09, 2018 Administered SOCIAL HISTORY Never Assessed REASON FOR VISIT Depo Provera injection--[facility] PLAN OF CARE Activity Details Follow Up 3 Months Reason: VITAL SIGNS MEDICATIONS Unknown Medications RESULTS Name Result Date Reference Range TEST, URINE (IN HOUSE) 2018-02-09 RESULTS Negative Lot # [id number] Control + Exp date 09/2019 PROCEDURES Procedure Date Ordered Result Body Site DEPO PROVERA (150 MG/ML) February 09, 2018 THER/PROPH/DIAG INJ, SC/IM February 09, 2018 URINE TEST February 09, 2018 INSTRUCTIONS MEDICATIONS ADMINISTERED No Known Medications MEDICAL (GENERAL) HISTORY Type Description Date Medical History Tobacco abuse Surgical History tonsillectomy age 15 Surgical History cholecystectomy 2009 Surgical History colonoscopy 3 times Surgical History 4 natural births Hospitalization History Hospitalization for surgery only
--- OUTSIDE RECORDS SUMMARY | 2018-08-17 18:10 | XMS REPORT ---
Author Author LARRY HILDA Organization [facility] [place] Address [address] [place] [address] Care Team Providers Care Career Guidance Technician Name Role Phone ELISEHILDA NASH Unavailable PROBLEMS Type Condition ICD9-CM Code VNL14-KS Code Onset Dates Condition Status SNOMED Code Problem Generalized anxiety disorder F41.1 Active 95700961 Problem Other chronic pain G89.29 Active 89803095 Problem History of methamphetamine abuse Z87.898 Active 596334306 Problem Cervical high risk HPV (human papillomavirus) test positive R87.810 Active 415102120 Problem Atyp squam cell of undet signfc cyto smr crvx (ASC-US) R87.610 Active 656741496 Problem Major depressive disorder, recurrent episode, moderate F33.1 Active 502412437 Problem BMI 36.0-36.9,adult Z68.36 Active 972022142 Problem BMI 39.0-39.9,adult Z68.39 Active 232893322 Problem Alkaline phosphatase elevation R74.8 Active 965878119 Problem Irritable bowel syndrome with diarrhea K58.0 Active 279006204 Problem Recurrent major depressive disorder, in partial remission F33.41 Active 02625461 Problem Anxiety F41.9 Active 03256284 ALLERGIES Substance Reaction Event Type Date Status Naproxen swelling Drug Allergy Dec, Active ENCOUNTERS Encounter Location Date Diagnosis [facility] [place] [id number] [address] May, Generalized anxiety disorder F41.1 and Major depressive disorder, recurrent episode, moderate F33.1 [facility] [place] [id number] [address] Apr, Anxiety F41.9 [facility] [place] [id number] [address] Apr, [facility] [place] [id number] [place] [address] 90957- 3890 11 Apr, 2018 Weight loss counseling, encounter for Z71.3 and BMI 36.0- 36.9,adult Z68.36 [facility] [id number] [place] [address] 81378- 8592 04 Apr, 2018 Anxiety F41.9 [facility] [id number] [place] [address] 76421- 5353 March, Other chronic pain G89.29 [facility] [id number] [place] [address] 98718- 5773 March, [facility] [id number] [place] [address] 29355- 9096 March, Generalized anxiety disorder F41.1 and Major depressive disorder, recurrent episode, moderate F33.1 [facility] [id number] [place] [address] 88304- 8611 Jan, Encounter for Depo-Provera contraception Z30.42 [facility] [id number] [place] [address] 91334- 8859 Jan, Generalized anxiety disorder F41.1 and Major depressive disorder, recurrent episode, moderate F33.1 [facility] [id number] [place] [address] 34056- 3154 Dec, Anxiety F41.9 and Recurrent major depressive disorder, in partial remission F33.41 [facility] [id number] [place] [address] 81379- 8952 Nov, [facility] [id number] [place] [address] 69439- 0692 Nov, Other chronic pain G89.29 ; Encounter for surveillance of injectable contraceptive Z30.42 ; BMI 39.0-39.9,adult Z68.39 and Encounter for Depo-Provera contraception Z30.42 [facility] [id number] [place] [address] 88633- 8600 Sep, Anxiety F41.9 and Recurrent major depressive disorder, in partial remission F33.41 [facility] [id number] [place] [address] 75879- 9623 Aug, Generalized anxiety disorder F41.1 and Major depressive disorder, recurrent episode, moderate F33.1 [facility] [id number] [place] [address] 70508- 9050 Aug, [facility] [address] 57876- 7062 Aug, Anxiety F41.9 and Major depressive disorder, recurrent episode, moderate F33.1 [place] [address] 248824- 2148 25 Jul, 2017 Encounter for immunization Z23 [place] [address] 63875- 5166 19 Jul, 2017 [place] [address] 65737- 9863 19 Jul, 2017 [place] [id number] [place] [address] 41731- 1488 14 Jul, 2017 Alkaline phosphatase elevation R74.8 [facility] [place] [id number] [place] [address] 59434- 2135 13 Jul, 2017 Encounter for annual physical exam Z00.00 [facility] [id number] [place] [address] 59075- 1865 13 Jul, 2017 [place] [address] 68908- 0226 12 Jul, 2017 Dysuria R30.0 ; Routine gynecological examination Z01.419 and Screening breast examination Z12.31 [place] [address] 41813- 4313 12 Jul, 2017 Generalized anxiety disorder F41.1 and Major depressive disorder, recurrent episode, moderate F33.1 [place] [address] 17231- 4668 Jul, [facility] [place] [address] [address] Jun, Generalized anxiety disorder F41.1 and Major depressive disorder, recurrent episode, moderate F33.1 [facility] [place] [address] [address] 6[address] Jun, Other chronic pain G89.29 [facility] [id number] [place] [address] [id number] May, Dental caries K02.9 [facility] [place] [id number] [place] [address] 27185- 2526 May, Generalized anxiety disorder F41.1 and Major depressive disorder, recurrent episode, moderate F33.1 [facility] [address] [id number] May, Dental examination Z01.20 [facility] [place] [address] [address] 15[address] March, [facility] [place] [id number] [place] [address] 74225- 4513 March, Generalized anxiety disorder F41.1 and Major depressive disorder, recurrent episode, moderate F33.1 [facility] [place] [address] [address] 76[address] March, Encounter for annual physical exam Z00.00 and Other chronic pain G89.29 [facility] [place] [address] [address]- 1514 Jan, Generalized anxiety disorder F41.1 and Major depressive disorder, recurrent episode, moderate F33.1 [facility] [place] [address] [address]- 0512 Jan, [facility] [place] [address] [address]- 8883 Dec, Generalized anxiety disorder F41.1 and Major depressive disorder, recurrent episode, moderate F33.1 [facility] [place] [id number] [address]- 6095 17 Dec, 2016 Generalized anxiety disorder F41.1 and Major depressive disorder, recurrent episode, moderate F33.1 [facility] [id number] [place] [address] 14806- 7953 16 Dec, 2016 [facility] [place] [id number] [place] [address] 18355- 7985 16 Dec, 2016 Generalized anxiety disorder F41.1 and Major depressive disorder, recurrent episode, moderate F33.1 [facility] [id number] [place] [address] 23086- 7908 15 Dec, 2016 Diarrhea, unspecified type R19.7 ; Irritable bowel syndrome with diarrhea K58.0 and Alkaline phosphatase elevation R74.8 [facility] [place] [id number] [place] [address] 28888- 7373 Dec, Diarrhea, unspecified type R19.7 and Alkaline phosphatase elevation R74.8 [facility] [id number] [place] [address] 89207- 6556 Dec, Generalized anxiety disorder F41.1 and Major depressive disorder, recurrent episode, moderate F33.1 [facility] [id number] [place] [address] 86591- 1036 Dec, Low back pain M54.5 [facility] [id number] [place] [address] 16481- 1420 Dec, Generalized anxiety disorder F41.1 and Major depressive disorder, recurrent episode, moderate F33.1 [facility] [id number] [place] [address] 17245- 7012 Dec, Irritable bowel syndrome with diarrhea K58.0 and Diarrhea, unspecified type R19.7 [facility] [id number] [place] [address] 94550- 8346 Dec, [facility] [id number] [place] [address] 54346- 3929 Dec, Generalized anxiety disorder F41.1 and Major depressive disorder, recurrent episode, moderate F33.1 [facility] [id number] [place] [address] 49164 -7581 Nov, Cough R05 ; Viral illness B34.9 and Chronic diarrhea K52.9 [facility] [place] [id number] [place] [address] 96591- 0069 Nov, Generalized anxiety disorder F41.1 and Major depressive disorder, recurrent episode, moderate F33.1 [facility] [place] [address] 40394- 9881 Nov, Encounter for Depo-Provera contraception Z30.42 [place] [address] 15685- 2056 Nov, Generalized anxiety disorder F41.1 and Major depressive disorder, recurrent episode, moderate F33.1 [place] [address] 48970- 2599 Nov, Low back pain M54.5 [place] [address] 17191- 6388 Oct, Generalized anxiety disorder F41.1 and Major depressive disorder, recurrent episode, moderate F33.1 [facility] [place] [id number] [place] [address] 26664- 1397 Sep, Low back pain M54.5 and Other chronic pain G89.29 [facility] [id number] [place] [address] 16672- 2283 Sep, Generalized anxiety disorder F41.1 and Major depressive disorder, recurrent episode, moderate F33.1 [place] [address] 67278- 7958 Sep, Encounter for Depo-Provera contraception Z30.42 [facility] [place] [id number] [place] [address] 19555- 5660 30 Jul, 2016 [facility] [place] [address] 18257- 5806 Jul, [facility] [place] [id number] [place] [address] 21794- 1102 Jul, Encounter for immunization Z23 [facility] [place] [id number] [place] [address] 855194- 2071 Jun, Encounter for Depo-Provera contraception Z30.42 [facility] [place] [id number] [place] [address] 77754- 2859 Jun, Generalized anxiety disorder F41.1 and Major depressive disorder, recurrent episode, moderate F33.1 [place] [id number] [place] [address] 48382- 9247 May, Generalized anxiety disorder F41.1 and Major depressive disorder, recurrent episode, moderate F33.1 [facility] [place] [id number] [place] [address] 73682- 3623 Apr, Generalized anxiety disorder F41.1 and Major depressive disorder, recurrent episode, moderate F33.1 [facility] [place] [id number] [place] [address] 53374- 7798 March, Encounter for Depo-Provera contraception Z30.42 [facility] [place] [id number] [place] [address] 20165- 0597 March, Generalized anxiety disorder F41.1 and Major depressive disorder, recurrent episode, moderate F33.1 [facility] [place] [id number] [place] [address] 27977- 7120 Jan, Generalized anxiety disorder F41.1 and Major depressive disorder, recurrent episode, moderate F33.1 [facility] [place] [id number] [place] [address] 20905- 0805 Jan, [facility] [id number] [place] [address] 12976 -1590 Jan, Oral infection K12.2 [facility] [place] [id number] [place] [address] 53085- 2697 Jan, Tobacco abuse Z72.0 and Hypokalemia E87.6 [place] [id number] [place] [address] 98743- 5788 Jan, [place] [id number] [place] [address]- [address]255 Dec, Screening, lipid Z13.220 and Hypokalemia E87.6 [place] [address] 98339- 1502 Dec, Screening, lipid Z13.220 ; Screening for diabetes mellitus Z13.1 and Tobacco abuse Z72.0 [place] [address] 20838- 3284 Dec, Generalized anxiety disorder F41.1 and Major depressive disorder, recurrent episode, moderate F33.[address] 48744- 8108 Dec, Routine follow-up Z39.2 ; Encounter for Depo- Provera contraception Z30.42 ; Atyp squam cell of undet signfc cyto smr crvx ( ASC-US) R87.610 and Cervical high risk human papillomavirus (HPV) DNA test positive R87.810 [place] [id number] [place] [address] 98894- 3511 Dec, Generalized anxiety disorder F41.1 and Major depressive disorder, recurrent episode, moderate F33.1 [facility] [id number] [place] [address] 46970- 5950 Nov, Unspecified high-risk O09.90 and 39 weeks gestation of Z3A.39 [place] [address] 00546- 5827 Nov, Unspecified high-risk O09.90 and 38 weeks gestation of Z3A.38 [place] [id number] [place] [address] 75504- 2063 Nov, Unspecified high-risk O09.90 ; Dental infection K04.7 and 37 weeks gestation of Z3A.37 [facility] [id number] [place] [address] 33763- 1743 Oct, screening for streptococcus B Z36 ; 36 weeks gestation of Z3A.36 and Breech presentation, not applicable or unspecified fetus O32.1XX0 [facility] [id number] [place] [address] 86886- 9674 Oct, Unspecified high-risk O09.90 and 34 weeks gestation of Z3A.34 [place] [id number] [place] [address] 84423- 3460 Oct, 32 weeks gestation of Z3A.32 and Unspecified high- risk O09.90 [facility] [id number] [place] [address] 56560- 6412 Sep, Encounter for immunization Z23 ; Unspecified high-risk O09.90 and 30 weeks gestation of Z3A.30 [place] [id number] [place] [address] 12647- 1026 Sep, Generalized anxiety disorder F41.1 and Major depressive disorder, recurrent episode, moderate F33.1 [facility] [id number] [place] [address] 48382- 6219 Aug, Unspecified high-risk O09.90 [facility] [id number] [place] [address] 12091- 5600 Aug, Unspecified high-risk O09.90 [place] [id number] [place] [address] 67555- 4446 Aug, Dental infection K04.7 [facility] [id number] [place] [address] 84959- 2761 Aug, Dysuria R30.0 [place] [id number] [place] [address] 06734- 0971 Aug, Dysuria R30.0 [place] [address] [address]- 1114 Jul, Influenza vaccine administered V04.81 [facility] [place] [id number] [place] [address] 15294- 5656 Jul, Unspecified high-risk V23.9 [place] [id number] [place] [address] 34889- 4116 Jul, Unspecified high-risk V23.9 and ASCUS with positive high risk HPV 796.9 [place] [id number] [place] [address] 88175- 9172 Jul, [place] [id number] [place] [address] 09393- 5314 Jun, [place] [id number] [place] [address] 70708- 4321 Jun, Unspecified high-risk V23.9 ; Pap test, as part of routine gynecological examination V76.2 and Screen for STD (sexually transmitted disease) V74.5 [place] [address] [place] [address] 43917- 4722 Jun, test positive V72.42 ; Unspecified high-risk V23.9 ; UTI in 646.60 and Vomiting 643.90 [place] [address] [address]- 6072 Jun, [place] [address] [place] [address] 38057- 3064 Jun, [place] [id number] [place] [address] 82118- 4080 Jun, [place] [place] [id number] [place] [address] 97577- 3888 May, [place] [address] [address]- 0540 Apr, [place] [place] [id number] [place] [address] 68330- 2479 Apr, Absence of menstruation 626.0 [facility] [address] [id number] [place] [address]- 4961 14 Jan, 2015 [facility] [address] [id number] [address]- 2387 Jan, [facility] [address] [facility] [id number] [address]- 2189 Dec, [facility] [address] [id number] [address]- 4307 Dec, [facility] [address] [facility] [id number] [place] [address]- 5772 Dec, [facility] [id number] [place] [address]- 5668 Dec, [facility] [address] [address]- 4460 Nov, [facility] [id number] [address]- 9423 Nov, [facility] [address] [address]- 6646 Nov, [facility] [id number] [address]- 4732 Nov, [facility] [id number] [address]- 8276 Nov, [facility] [address] [facility] [id number], [place] [address]- 0698 Nov, [facility] [address] [facility] [id number] [address]- 7941 Nov, [facility] [address] [facility] [id number] [address]- 8636 Nov, [facility] [id number] [address]- 1087 Oct, [facility] [place] [facility] [address] [id number] [place] [address]- 7198 Oct, [facility] [place] [facility] [address] [id number] [place] [address]- 5152 Oct, [facility] [place] [facility] [address] [id number] [place] [address]- 3165 Oct, [facility] [place] [facility] [address] [id number] [place] [address]- 8401 Sep, [facility] [place] [facility] [address] [id number] [place] [address]- 3119 Sep, [facility] [place] [facility] [address] [id number] [place] [address]- 5509 Jul, [facility] [place] [facility] [address] [id number] [place] [address]- 9013 Jul, [facility] [place] [facility] [address] [id number] [place] [address]- 0986 Apr, [facility] [place] [facility] [address] [id number] [place] [address]- 3976 Apr, [facility] [place] [facility] [address] [id number] [place] [address]- 5195 March, [facility] [place] [facility] [address] [id number] [place] [address]- 3572 March, [facility] [place] [facility] [address] [id number] [address]- 3331 March, [facility] [place] [facility] [address] [id number] [place] [address]- 2394 March, [facility] [place] [facility] [address] [id number] [place] [address]- 9108 Nov, [facility] [place] [facility] [address] [id number] [place] 1715 Nov, [facility] [place] [facility] [address] [id number] [address]- 8989 Nov, [facility] [address] [id number] [place] [address]- 7616 Nov, [facility] [place] [facility] [address] [id number] [place] [address]- 8225 Nov, [facility] [address] [id number] [place] [address]- 0546 Nov, [facility] [place] [facility] [address] [id number] [place] [address]- 6607 Nov, [facility] [address] [id number] [place] [address]- 0897 Nov, [facility] [address] [id number] [place] [address]- 4348 Nov, [facility] [address] [id number] [place] [address]- 5671 Nov, [facility] [address] [id number] [place] [address]- 7122 Nov, [facility] [address] [id number] [place] [address]- 7436 Oct, [facility] [address] [id number] [place] [address]- 9659 16 Oct, 2013 [facility] [address] [id number] [place] [address]- 9724 16 Oct, 2013 [facility] [place] [facility] [address] [id number], [place] [address]- 6146 13 Oct, 2013 [facility] [place] [facility] [address] [id number] [place] [address]- 5808 13 Oct, 2013 [facility] [place] [facility] [address] [id number] [place] [address]- 6406 12 Oct, 2013 [facility] [place] [facility] [address] [id number] [place] [address]- 8944 11 Oct, 2013 [facility] [place] [facility] [address] [id number] [place] [address]- 3118 Oct, [facility] [place] [facility] [address] [id number] [place] [address]- 6018 Oct, [facility] [place] [facility] [address] [id number] [place] [address]- 7528 Oct, [facility] [place] [facility] [address] [id number] [place] [address]- 2349 Oct, [facility] [place] [facility] [address] [id number] [place] [address]- 0801 Oct, [facility] [place] [facility] [address] [id number] [place] [address] Sep, [facility] [place] [facility] [address] [id number] [place] [address] Sep, [facility] [place] [facility] [address] [id number] [place] [address] Sep, [facility] [place] [facility] [address] [id number] [place] [address] Sep, [facility] [place] [facility] [address] [id number] [place] [address] Aug, [facility] [place] [facility] [address] [id number] [place] [address] Aug, [facility] [place] [facility] [address] [id number] [place] [address] Aug, [facility] [place] [facility] [address] [id number] [place] [address] Aug, [facility] [place] [facility] [address] [id number] [place] [address] Jun, [facility] [place] [facility] [address] [id number] [place] [address] Jun, [facility] [place] [facility] [address] [id number] [place] [address] Apr, [facility] [address] [id number] [place] [address] 14 Mar, 2013 [facility] [place] [facility] [address] [id number] [place] [address] 17 Jan, 2013 [facility] [place] [facility] [address] [id number] [place] [address] 16 Jan, 2013 [facility] [place] [facility] [address] [id number] [place] [address] 15 Jan, 2013 [facility] [address] [id number] [place] [address] Jan, [facility] [address] [id number] [place] [address] Dec, [facility] [address] [id number] [place] [address] Dec, [facility] [place] [facility] [address] [id number] [place] [address] Dec, [facility] [address] [id number] [place] [address] Dec, [facility] [place] [facility] [address] [id number] [place] [address] Oct, [facility] [place] [facility] [address] [id number] [place] [address] Oct, [facility] [place] [facility] [address] [id number] [place] [address] Oct, [facility] [place] [facility] [address] [id number] [place] [address] Oct, [facility] [place] [facility] [address] [facility] [id number] [place] [address] Oct, [facility] [place] [facility] [address] [facility] [id number] [place] [address] Oct, [facility] [place] [facility] [address] [id number] [place] [address] Sep, [facility] [place] [facility] [address] [id number] [place] [address] Sep, [facility] [place] [facility] [address] [id number] [place] [address] Aug, [facility] [place] [facility] [address] [id number] [place] [address] Aug, [facility] [place] [facility] [address] [id number] [place] [address] Aug, [facility] [place] [facility] [address] [id number] [place] [address] Jul, [facility] [place] [facility] [address] [id number] [place] [address] Jul, [facility] [place] [facility] [address] [id number] [place] [address] Jul, [facility] [place] [facility] [address] [id number] [place] [address] Jul, [facility] [place] [facility] [address] [id number] [place] [address] Jun, [facility] [place] [facility] [address] [id number] [place] [address] Jun, [facility] [place] [facility] [address] [id number] [place] [address] Jun, [facility] [place] [facility] [address] [id number] [place] [address] Jun, [facility] [place] [facility] [address] [id number] [place] [address] Jun, [facility] [place] [facility] [address] [id number] [place] [address] May, [facility] [place] [facility] [address] [id number] [place] [address] May, [facility] [place] [facility] [address] [id number] [place] [address] Apr, [facility] [place] [facility] [address] [id number] [place] [address]- [address] Apr, [facility] [place] [facility] [address] [id number] [place] [address]46 Apr, [facility] [place] [facility] [address] [id number] [place] [address] March, [facility] [place] [facility] [address] [id number] [place] [address] March, [facility] [place] [facility] [address] [id number] [place] [address] March, [facility] [place] [facility] [address] [id number] [place] [address] Jan, [facility] [place] [facility] [address] [id number] [place] [address] Dec, [facility] [place] [facility] [address] [id number] [place] [address]- [address] Dec, [facility] [place] [facility] [address] [id number] [place] [address]- 8516 Dec, [facility] [place] [facility] [address] [id number] [place] [address]- [address] Dec, [facility] [place] [facility] [address] [id number] [place] [address]- 48[address] Dec, [facility] [place] [facility] [address] [id number] [place] [address]- 1467 16 Dec, 2011 [facility] [place] [facility] [address] [id number] [place] [address]- [address]296 Dec, [facility] [place] [facility] [address] [id number] [place] [address]- [address] Dec, [facility] [place] [facility] [address] [id number] [place] [address] 28 Dec, 2011 [facility] [address] [id number] [place] [address]- [address] 21 Dec, 2011 [facility] [place] [facility] [address] [id number] [place] [address]- 1546 13 Dec, 2011 [facility] [address] [id number] [place] [address]- 8866 11 Dec, 2011 [facility] [place] [facility] [address] [id number] [place] [address]- [address]206 10 Dec, 2011 [facility] [address] [id number] [place] [address]- 47[address] 30 Nov, 2011 [facility] [place] [facility] [address] [id number] [place] [address]- [address] 24 Nov, 2011 [facility] [address] [id number] [place] [address]- [address] Nov, [facility] [address] [id number] [place] [address]- [address] 17 Nov, 2011 [facility] [place] [facility] [address] [id number] [place] [address] 17 Nov, 2011 [facility] [address] [id number] [place] [address]- 9434 16 Nov, 2011 [facility] [address] [id number] [place] [address]- [address] Nov, [facility] [place] [facility] [address] [id number] [place] [address] 2542 Nov, [facility] [place] [facility] [address] [id number] [place] [address]- [address]226 Oct, [facility] [place] [facility] [address] [id number] [place] [address]- [address]166 Oct, [facility] [address] [id number] [place] [address]- [address] Oct, [facility] [place] [facility] [address] [id number] [place] [address]- [address] 15 Oct, 2011 [facility] [place] [facility] [address] [id number] [place] [address]- [address]706 Oct, [facility] [place] [facility] [address] [id number] [place] [address]- 3[address] Oct, [facility] [place] [facility] [address] [id number] [place] [address]- 4[address] 07 Oct, 2011 [facility] [place] [facility] [address] [id number] [place] [address]- 25[address] 23 Sep, 2011 [facility] [place] [facility] [address] [id number] [place] [address]- 9566 Sep, [facility] [place] [facility] [address] [id number] [place] [address]- 2648 Sep, [facility] [place] [facility] [address] [id number] [place] [address]- 6882 Sep, [facility] [place] [facility] [address] [id number] [place] [address]- 9918 Sep, [facility] [place] [facility] [address] [id number] [place] [address]- 8277 Sep, [facility] [place] [facility] [address] [id number] [place] [address]- 7784 Sep, [facility] [place] [facility] [address] [id number] [place] [address]- 3908 Aug, [facility] [place] [facility] [address] [id number] [place] [address]- 30[address] Aug, [facility] [place] [facility] [address] [id number] [place] [address]- 9376 Jun, [facility] [place] [facility] [address] [id number] [place] [address]- 8753 Oct, [facility] [place] [facility] [address] [id number] [address]- [address] 19 Oct, 2010 [facility] [address] [id number] [place] [address] 2546 08 Oct, 2010 [facility] [place] [facility] [address] [id number][place] [address] 2546 16 Dec, 2009 [facility] [place] [facility] [address] [id number] [place] [address] 2546 11 Dec, 2009 [facility] [place] [facility] [address] [id number] [address] 2546 18 Dec, 2009 [facility] [place] [facility] [address] [id number] [place] [address] 2546 11 Dec, 2009 [facility] [place] [facility] [address] [id number] [place] [address]- 6876 20 Nov, 2009 [facility] [address] [id number] [address]- 9[address] 29 Oct, 2009 [facility] [place] [facility] [address] [id number] [place] [address]- 8293 17 Oct, 2009 [facility] [address] [facility] [id number], [place] [address]- [address] 15 Oct, 2009 [facility] [place] [facility] [address] [facility] [id number] [place] [address] 254 15 Oct, 2009 [facility] [place] [facility] [address] [id number], [place] [address] 2548 24 Sep, 2009 [facility] [place] [facility] [address] [id number] [address] 2546 03 Sep, 2009 [facility] [place] [facility] [address] [id number], [place] [address] 2546 29 Aug, 2009 [facility] [place] [facility] [address] [id number], [place] [address] 254 23 Aug, 2009 [facility] [place] [facility] [address] [id number][place] [address] 2546 13 Aug, 2009 [facility] [place] [facility] [address] [facility] [id number] [place] [address]- [address] Aug, [facility] [place] [address] [facility] [id number] [place] [address]- 287[address] Aug, [facility] [place] [address] [facility] [id number] [place] [address]- 1666 Jun, IMMUNIZATIONS No Known Immunizations SOCIAL HISTORY Never Assessed REASON FOR VISIT f/u Molly PLAN OF CARE Activity Details Follow Up 4 Months Reason: VITAL SIGNS Height 68 in 2017-12-29 Weight 257.9 lbs 2017-12-29 Heart Rate 92 bpm 2017-12-29 Respiratory Rate 20 2017-12-29 BMI 39.21 kg/m2 2017-12-29 Blood pressure systolic 130 mmHg 2017-12-29 Blood pressure diastolic 82 mmHg 2017-12-29 MEDICATIONS Medication Instructions Dosage Frequency Start Date End Date Duration Status Viibryd 20 MG Orally Once a day 1 tablet with food 24h 30 days Active HydrOXYzine HCl 10 MG Orally twice a day as needed for anxiety 1 tablet Aug, Active Vitamin D 29245 iu Orally once weekly 1 tablet Active [...]
[2018-08-17] MEDS ORDERED: LACTATED RINGERS 1,000 ML IV ONE (18:11)
--- OUTSIDE RECORDS SUMMARY | 2018-08-17 18:11 | XMS REPORT ---
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 Name Role Phone FABY GONZALEZ Unavailable PROBLEMS Type Condition ICD9-CM Code ZUI23-BS Code Onset Dates Condition Status SNOMED Code Problem Major depressive disorder, recurrent episode, moderate F33.1 Active 096318531 Problem History of methamphetamine abuse Z87.898 Active 542198694 Problem Generalized anxiety disorder F41.1 Active 71354889 Problem Cervical high risk HPV (human papillomavirus) test positive R87.810 Active 874759679 Problem Atyp squam cell of undet signfc cyto smr crvx (ASC-US) R87.610 Active 728794670 Problem BMI 39.0-39.9,adult Z68.39 Active 849368392 Problem Recurrent major depressive disorder, in partial remission F33.41 Active 50359731 Problem Irritable bowel syndrome with diarrhea K58.0 Active 326165529 Problem Other chronic pain G89.29 Active 99372057 Problem Anxiety F41.9 Active 12829209 Problem Alkaline phosphatase elevation R74.8 Active 135297847 ALLERGIES No Information ENCOUNTERS Encounter Location Date Diagnosis [place] [id number] [place] [address] 51530- 1339 March, [facility] [id number] [place] [address] 10361- 9335 Jan, Encounter for Depo-Provera contraception Z30.42 [facility] [id number] [place] [address] 43479- 2335 Jan, Generalized anxiety disorder F41.1 and Major depressive disorder, recurrent episode, moderate F33.1 [place] [id number] [place] [address] 14608- 7835 Dec, Anxiety F41.9 and Recurrent major depressive disorder, in partial remission F33.41 [facility] [id number] [place] [address] 26807- 3627 Nov, [place] [id number] [place] [address] 29977- 0452 Nov, Other chronic pain G89.29 ; Encounter for surveillance of injectable contraceptive Z30.42 ; BMI 39.0-39.9,adult Z68.39 and Encounter for Depo-Provera contraception Z30.42 [place] [address] [place] [address] [id number] [place] [address] 62622- 8411 Sep, Anxiety F41.9 and Recurrent major depressive disorder, in partial remission F33.41 [place] [address] [place] [id number] [place] [address] 88863- 2342 Aug, Generalized anxiety disorder F41.1 and Major depressive disorder, recurrent episode, moderate F33.1 [place] [address] [place] [id number] [place] [address] 62057- 6971 Aug, [place] [address] [place] [address] [id number] [place] [address] 89152- 2014 Aug, Anxiety F41.9 and Major depressive disorder, recurrent episode, moderate F33.1 [place] [id number] [place] [address] 46577- 1914 25 Jul, 2017 Encounter for immunization Z23 [place] [address] [place] [id number] [place] [address] 82349- 0697 19 Jul, 2017 [place] [address] [place] [id number] [place] [address] 86075- 8878 19 Jul, 2017 [place] [address] [place] [id number] [place] [address] 38269- 9221 14 Jul, 2017 Alkaline phosphatase elevation R74.8 [place] [address] [place] [address] 49589- 1896 13 Jul, 2017 Encounter for annual physical exam Z00.00 [place] [id number] [address]- 1665 13 Jul, 2017 [facility] [id number] [place] [address] 78802- 3228 12 Jul, 2017 Routine gynecological examination Z01.419 ; Dysuria R30.0 and Screening breast examination Z12.31 [facility] [address] [place] [address] 18784- 4993 12 Jul, 2017 Generalized anxiety disorder F41.1 and Major depressive disorder, recurrent episode, moderate F33.1 [facility] [id number] [place] [address] 89998- 5004 08 Jul, 2017 [facility] [id number] [place] [address] 11421- 3002 Jun, Generalized anxiety disorder F41.1 and Major depressive disorder, recurrent episode, moderate F33.1 [place] [address] [place] [id number] [place] [address] 80354- 8021 Jun, Other chronic pain G89.29 [facility] [id number] [place] [address] [id number] May, Dental caries K02.9 [place] [address] [place] [id number] [place] [address] 56051- 8023 10 May, 2017 Generalized anxiety disorder F41.1 and Major depressive disorder, recurrent episode, moderate F33.1 [facility] [id number] [place] [address] [id number] 05 May, 2017 Dental examination Z01.20 [facility] [address] [address]- 1152 March, [facility] [address] [id number] [place] [address] 90686- 6450 March, Generalized anxiety disorder F41.1 and Major depressive disorder, recurrent episode, moderate F33.1 [facility] [address] [address] 9988 March, Encounter for annual physical exam Z00.00 and Other chronic pain G89.29 [facility] [address] [place] [address] 05832- 1828 Jan, Generalized anxiety disorder F41.1 and Major depressive disorder, recurrent episode, moderate F33.1 [facility] [address] [place] [address] 22707- 8788 Jan, [facility] [id number] [place] [address] 35823- 7649 Dec, Generalized anxiety disorder F41.1 and Major depressive disorder, recurrent episode, moderate F33.1 [place] [address] [place] [address] [id number] [place] [address] 43405- 5246 Dec, Generalized anxiety disorder F41.1 and Major depressive disorder, recurrent episode, moderate F33.1 [place] [address] [place] [address] [id number] [place] [address] 28908- 0388 Dec, [facility] [address] [id number] [place] [address] 48452- 2402 Dec, Generalized anxiety disorder F41.1 and Major depressive disorder, recurrent episode, moderate F33.1 [place] [address] [place] [id number] [place] [address] 11519- 6703 15 Dec, 2016 Diarrhea, unspecified type R19.7 ; Irritable bowel syndrome with diarrhea K58.0 and Alkaline phosphatase elevation R74.8 [place] [address] [place] [address] 03480- 0602 Dec, Diarrhea, unspecified type R19.7 and Alkaline phosphatase elevation R74.8 [place] [address] [place] [address] 46368- 0745 Dec, Generalized anxiety disorder F41.1 and Major depressive disorder, recurrent episode, moderate F33.1 [facility] [address] [address]- 9344 Dec, Low back pain M54.5 [facility] [id number] [place] [address] 53761- 1310 Dec, Generalized anxiety disorder F41.1 and Major depressive disorder, recurrent episode, moderate F33.1 [place] [address] [place] [address] [id number] [place] [address] 00374- 6042 Dec, Irritable bowel syndrome with diarrhea K58.0 and Diarrhea, unspecified type R19.7 [place] [address] 37352- 7893 Dec, [place] [address] 06670- 1284 Dec, Generalized anxiety disorder F41.1 and Major depressive disorder, recurrent episode, moderate F33.1 [facility] [id number] [place] [address] 98580 -2553 Nov, Cough R05 ; Viral illness B34.9 and Chronic diarrhea K52.9 [place] [address] [place] [id number] [place] [address] 08476- 3813 Nov, Generalized anxiety disorder F41.1 and Major depressive disorder, recurrent episode, moderate F33.1 [place] [address] [place] [id number] [place] [address] 81405- 3243 Nov, Encounter for Depo-Provera contraception Z30.42 [place] [address] [place] [id number] [place] [address] 79249- 7843 Nov, Generalized anxiety disorder F41.1 and Major depressive disorder, recurrent episode, moderate F33.1 [place] [address] [place] [id number] [place] [address] 22669- 8808 Nov, Low back pain M54.5 [place] [address] 14683- 9951 Oct, Generalized anxiety disorder F41.1 and Major depressive disorder, recurrent episode, moderate F33.1 [place] [address] [place] [id number] [place] [address] 23760- 7818 Sep, Low back pain M54.5 and Other chronic pain G89.29 [facility] [address] [place] [address] 65610- 2926 16 Sep, 2016 Generalized anxiety disorder F41.1 and Major depressive disorder, recurrent episode, moderate F33.1 [facility] [id number] [place] [address] 28050- 0782 Sep, Encounter for Depo-Provera contraception Z30.42 [facility] [id number] [place] [address] 32702- 4285 Jul, [facility] [id number] [place] [address] 77433- 6586 Jul, [facility] [address] [place] [id number] [place] [address] 81664- 5922 Jul, Encounter for immunization Z23 [facility] [address] [place] [id number] [place] [address] 59133- 0827 Jun, Encounter for Depo-Provera contraception Z30.42 [facility] [id number] [place] [address] 66234- 6027 Jun, Generalized anxiety disorder F41.1 and Major depressive disorder, recurrent episode, moderate F33.1 [facility] [address] [place] [address] 96676- 1515 May, Generalized anxiety disorder F41.1 and Major depressive disorder, recurrent episode, moderate F33.1 [facility] [address] [place] [address] [id number] [place] [address] 02270- 9115 Apr, Generalized anxiety disorder F41.1 and Major depressive disorder, recurrent episode, moderate F33.1 [place] [address] [place] [id number] [place] [address] 42194- 6606 March, Encounter for Depo-Provera contraception Z30.42 [facility] [address] [place] [address] 38275- 7238 March, Generalized anxiety disorder F41.1 and Major depressive disorder, recurrent episode, moderate F33.1 [place] [address] [place] [address] 97684- 6054 Jan, Generalized anxiety disorder F41.1 and Major depressive disorder, recurrent episode, moderate F33.1 [place] [address] [place] [id number] [place] [address] 35185- 2748 Jan, [facility] [id number] [place] [address] 61480 -6635 Jan, Oral infection K12.2 [place] [address] [place] [id number] [place] [address] 10596- 2983 Jan, Tobacco abuse Z72.0 and Hypokalemia E87.6 [place] [address] [place] [id number] [place] [address] 14671- 8215 Jan, [place] [address] 24844- 3923 Dec, Screening, lipid Z13.220 and Hypokalemia E87.6 [place] [address] [place] [id number] [place] [address] 24721- 8518 Dec, Screening, lipid Z13.220 ; Screening for diabetes mellitus Z13.1 and Tobacco abuse Z72.0 [place] [address] [place] [id number] [place] [address] 19802- 1174 Dec, Generalized anxiety disorder F41.1 and Major depressive disorder, recurrent episode, moderate F33.1 [place] [address] [place] [id number] [place] [address] 42949- 9582 03 Dec, 2015 Routine follow-up Z39.2 ; Encounter for Depo- Provera contraception Z30.42 ; Atyp squam cell of undet signfc cyto smr crvx ( ASC-US) R87.610 and Cervical high risk human papillomavirus (HPV) DNA test positive R87.810 [place] [address] [place] [address] 35202- 2188 Dec, Generalized anxiety disorder F41.1 and Major depressive disorder, recurrent episode, moderate F33.1 [place] [address] [place] [address] 48027- 8314 Nov, Unspecified high-risk O09.90 and 39 weeks gestation of Z3A.39 [place] [address] [place] [id number] [place] [address] 71350- 1524 Nov, Unspecified high-risk O09.90 and 38 weeks gestation of Z3A.38 [place] [address] 86004- 7028 Nov, Unspecified high-risk O09.90 ; Dental infection K04.7 and 37 weeks gestation of Z3A.37 [place] [address] [place] [id number] [place] [address] 68948- 0246 Oct, screening for streptococcus B Z36 ; 36 weeks gestation of Z3A.36 and Breech presentation, not applicable or unspecified fetus O32.1XX0 [place] [address] 64564- 2120 Oct, Unspecified high-risk O09.90 and 34 weeks gestation of Z3A.34 [place] [address] [place] [id number] [place] [address] 40784- 7889 Oct, 32 weeks gestation of Z3A.32 and Unspecified high- risk O09.90 [place] [address] [place] [id number] [place] [address] 00531- 2163 Sep, Unspecified high-risk O09.90 ; Encounter for immunization Z23 and 30 weeks gestation of Z3A.30 [place] [address] [place] [id number] [place] [address] 95503- 7324 Sep, Generalized anxiety disorder F41.1 and Major depressive disorder, recurrent episode, moderate F33.1 [place] [address] [place] [id number] [place] [address] 53158- 3712 Aug, Unspecified high-risk O09.90 [place] [address] [place] [id number] [place] [address] 55832- 9879 Aug, Unspecified high-risk O09.90 [place] [address] 58422- 0785 Aug, Dental infection K04.7 [place] [address] 49679- 1652 Aug, Dysuria R30.0 [place] [address] 15015- 2605 Aug, Dysuria R30.0 [place] [address] 13545- 0309 Jul, Influenza vaccine administered V04.81 [place] [address] 12172- 1893 Jul, Unspecified high-risk V23.9 [place] [address] 21973- 0240 Jul, Unspecified high-risk V23.9 and ASCUS with positive high risk HPV 796.9 [place] [address] 61262- 4661 Jul, [place] [address] [place] [id number] [place] [address] 31421- 2106 Jun, [place] [address] 92543- 9216 Jun, Unspecified high-risk V23.9 ; Pap test, as part of routine gynecological examination V76.2 and Screen for STD (sexually transmitted disease) V74.5 [place] [address] [place] [id number] [place] [address] 59175- 0950 Jun, test positive V72.42 ; Unspecified high-risk V23.9 ; UTI in 646.60 and Vomiting 643.90 [place] [address] 71288- 2546 Jun, [facility] [address] [id number] [place] [address]- 8918 Jun, [facility] [place] [facility] [address] [id number] [place] [address]- 9632 Jun, [facility] [place] [facility] [address] [facility] [id number] [place] [address]- 1158 May, [facility] [place] [facility] [address] [id number] [place] [address]- 4442 Apr, [facility] [address] [facility] [id number] [place] [address]- 9559 Apr, Absence of menstruation 626.0 [facility] [address] [facility] [id number] [place] [address]- 7443 Jan, [facility] [address] [facility] [id number] [place] [address]- 5453 Jan, [facility] [place] [facility] [address] [facility] [id number] [place] [address]- 2843 Dec, [facility] [place] [facility] [address] [facility] [id number] [place] [address]- 4714 Dec, [facility] [place] [facility] [address] [facility] [id number] [place] [address]- 1051 Dec, [facility] [place] [facility] [address] [facility] [id number] [place] [address]- 4335 Dec, [facility] [place] [facility] [address] [facility] [id number] [place] [address]- 7486 Nov, [facility] [place] [facility] [address] [id number] [place] [address]- 2160 Nov, [facility] [place] [facility] [address] [facility] [id number] [place] [address]- 2045 Nov, [facility] [place] [facility] [address] [facility] [id number] [place] [address]- 2522 Nov, [facility] [place] [facility] [address] [id number] [place] [address]- 0109 Nov, [facility] [place] [facility] [address] [id number] [place] [address]- 4290 Nov, [facility] [place] [facility] [address] [id number] [place] [address]- 7964 Nov, [facility] [place] [facility] [address] [id number] [place] [address]- 8409 Nov, [facility] [place] [facility] [address] [id number] [place] [address]- 1762 Oct, [facility] [place] [facility] [address] [id number] [place] [address]- 1779 Oct, [facility] [place] [facility] [address] [id number] [place] [address]- 3692 Oct, [facility] [place] [facility] [address] [id number] [place] [address]- 7388 Oct, [facility] [place] [facility] [address] [id number] [place] [address]- 1695 Sep, [facility] [place] [facility] [address] [id number] [place] [address]- 9335 Sep, [facility] [place] [facility] [address] [id number] [place] [address]- 0211 Jul, [facility] [place] [facility] [address] [id number] [place] [address]- 0523 Jul, [facility] [place] [facility] [address] [id number] [place] [address]- 6375 Apr, [facility] [place] [facility] [address] [id number] [place] [address]- 8987 Apr, [facility] [place] [facility] [address] [id number] [place] [address]- 8628 March, [facility] [place] [facility] [address] [id number] [place] [address]- 9853 March, [facility] [address] [id number] [place] [address]- 4262 March, [facility] [place] [facility] [address] [id number] [place] [address]- 9843 March, [facility] [place] [facility] [address] [id number] [place] [address]- 2480 Nov, [facility] [place] [facility] [address] [id number] [place] [address]- 5533 Nov, [facility] [place] [facility] [address] [id number] [place] [address]- 0360 Nov, [facility] [place] [facility] [address] [id number] [place] [address]- 2460 Nov, [facility] [place] [facility] [address] [id number] [place] [address]- 7367 Nov, [facility] [place] [facility] [address] [id number] [place] [address]- 2766 Nov, [facility] [place] [facility] [address] [id number] [place] [address]- 0229 Nov, [facility] [place] [facility] [address] [id number] [place] [address]- 5481 Nov, [facility] [place] [facility] [address] [id number] [place] [address]- 8559 Nov, [facility] [place] [facility] [address] [id number] [place] [address]- 8531 Nov, [facility] [place] [facility] [address] [id number] [place] [address]- 6970 Nov, [facility] [place] [facility] [address] [id number] [place] [address]- 8110 Oct, [facility] [place] [facility] [address] [id number] [place] [address]- 5230 Oct, [facility] [place] [facility] [address] [id number] [place] [address]- 2779 16 Oct, 2013 [facility] [address] [id number] [place] [address]- 7686 13 Oct, 2013 [facility] [place] [facility] [address] [id number] [place] [address]- 2126 13 Oct, 2013 [facility] [place] [facility] [address] [id number] [place] [address]- 1081 12 Oct, 2013 [facility] [place] [facility] [address] [id number] [place] [address]- 3569 11 Oct, 2013 [facility] [place] [facility] [address] [id number] [place] [address]- 3411 Oct, [facility] [place] [facility] [address] [id number] [place] [address]- 4753 Oct, [facility] [place] [facility] [address] [id number] [place] [address]- 9241 Oct, [facility] [address] [id number] [place] [address]- 3642 Oct, [facility] [place] [facility] [address] [id number] [place] [address]- 1600 Oct, [facility] [place] [facility] [address] [id number] [place] [address]- 3709 Sep, [facility] [place] [facility] [address] [id number] [place] [address]- 6757 Sep, [facility] [place] [facility] [address] [id number] [place] [address]- 8748 Sep, [facility] [place] [facility] [address] [id number] [place] [address]- 2056 Sep, [facility] [place] [facility] [address] [id number] [place] [address]- 9522 Aug, [facility] [place] [facility] [address] [id number] [place] [address]- 2248 Aug, [facility] [address] [id number] [place] [address]- 6224 Aug, [facility] [place] [facility] [address] [id number] [place] [address]- 8702 Aug, [facility] [place] [facility] [address] [id number] [place] [address]- 2043 Jun, [facility] [place] [facility] [address] [id number] [place] [address]- 8131 Jun, [facility] [address] [id number] [place] [address]- 1028 Apr, [facility] [place] [facility] [address] [id number] [place] [address]- 6615 March, [facility] [place] [facility] [address] [id number] [place] [address] 17 Jan, 2013 [facility] [place] [facility] [address] [id number], [place] [address] 16 Jan, 2013 [facility] [place] [facility] [address] [id number] [place] [address] 15 Jan, 2013 [facility] [place] [facility] [address] [id number], [place] [address] Jan, [facility] [place] [facility] [address] [id number], [place] [address] Dec, [facility] [place] [facility] [address] [id number], [place] [address] Dec, [facility] [place] [facility] [address] [id number] [place] [address] Dec, [facility] [place] [facility] [address] [id number], [place] [address] Dec, [facility] [place] [facility] [address] [id number] [place] [address] Oct, [facility] [place] [facility] [address] [id number] [place] [address] Oct, [facility] [place] [facility] [address] [id number] [place] [address] Oct, [facility] [place] [facility] [address] [id number] [place] [address] Oct, [facility] [place] [facility] [address] [id number] [place] [address] Oct, [facility] [place] [facility] [address] [id number] [place] [address] Oct, [facility] [place] [facility] [address] [id number] [place] [address] Sep, [facility] [place] [facility] [address] [id number] [place] [address] Sep, [facility] [place] [facility] [address] [facility] [id number] [place] [address] Aug, [facility] [place] [facility] [address] [id number] [place] [address] Aug, [facility] [place] [facility] [address] [id number] [place] [address] Aug, [facility] [place] [facility] [address] [facility] [id number] [place] [address] Jul, [facility] [place] [facility] [address] [id number] [place] [address] Jul, [facility] [place] [facility] [address] [id number] [place] [address] Jul, [facility] [place] [facility] [address] [id number] [place] [address] Jul, [facility] [place] [facility] [address] [facility] [id number] [place] [address] Jun, [facility] [place] [facility] [address] [facility] [id number] [place] [address] Jun, [facility] [place] [facility] [address] [id number] [place] [address] Jun, [facility] [place] [facility] [address] [id number] [place] [address] Jun, [facility] [place] [facility] [address] [id number] [place] [address] Jun, [facility] [place] [facility] [address] [id number] [place] [address] May, [facility] [address] [id number] [place] [address] May, [facility] [place] [facility] [address] [id number] [place] [address] Apr, [facility] [address] [id number] [place] [address] Apr, [facility] [address] [id number] [place] [address] Apr, [facility] [place] [facility] [address] [id number] [place] [address] March, [facility] [place] [facility] [address] [id number] [place] [address] March, [facility] [place] [facility] [address] [id number] [place] [address] March, [facility] [place] [facility] [address] [id number] [place] [address] Jan, [facility] [place] [facility] [address] [id number] [place] [address] Dec, [facility] [place] [facility] [address] [id number] [place] [address] Dec, [facility] [place] [facility] [address] [id number] [place] [address] Dec, [facility] [place] [facility] [address] [id number] [place] [address] Dec, [facility] [address] [id number] [place] [address] Dec, [facility] [place] [facility] [address] [id number] [place] [address] 16 Dec, 2011 [facility] [address] [id number] [place] [address] Dec, [facility] [place] [facility] [address] [id number] [place] [address] 29 Dec, 2011 [facility] [place] [facility] [address] [id number] [place] [address] 28 Dec, 2011 [facility] [place] [facility] [address] [id number] [place] [address] 21 Dec, 2011 [facility] [address] [id number] [place] [address] 13 Dec, 2011 [facility] [place] [facility] [address] [id number] [place] [address] Dec, [facility] [place] [facility] [address] [id number] [place] [address]85 10 Dec, 2011 [facility] [place] [facility] [address] [facility] [id number] [place] [address] Nov, [facility] [place] [facility] [address] [id number] [place] [address] 24 Nov, 2011 [facility] [place] [facility] [address] [id number] [place] [address] Nov, [facility] [place] [facility] [address] [id number] [place] [address] Nov, [facility] [place] [facility] [address] [id number] [place] [address] 17 Nov, 2011 [facility] [place] [facility] [address] [facility] [id number] [place] [address] 16 Nov, 2011 [facility] [place] [facility] [address] [id number] [place] [address] Nov, [facility] [place] [facility] [address] [id number] [place] [address] Nov, [facility] [place] [facility] [address] [id number] [place] [address] Oct, [facility] [place] [facility] [address] [id number] [place] [address] Oct, [facility] [place] [facility] [address] [id number] [place] [address] 15 Oct, 2011 [facility] [place] [facility] [address] [id number] [place] [address] 15 Oct, 2011 [facility] [place] [facility] [address] [id number] [place] [address] Oct, [facility] [place] [facility] [address] [id number] [place] [address] Oct, [facility] [place] [facility] [address] [id number] [place] [address] Oct, [facility] [place] [facility] [address] [id number] [place] [address] 23 Sep, 2011 [facility] [place] [facility] [address] [id number] [place] [address]1 18 Sep, 2011 [facility] [place] [facility] [address] [id number] [place] [address] 18 Sep, 2011 [facility] [place] [facility] [address] [id number] [place] [address] 16 Sep, 2011 [facility] [place] [facility] [address] [id number] [place] [address] 16 Sep, 2011 [facility] [place] [facility] [address] [id number] [place] [address] 08 Sep, 2011 [facility] [place] [facility] [address] [id number] [place] [address] Sep, [facility] [place] [facility] [address] [id number] [place] [address] Aug, [facility] [place] [facility] [address] [id number] [place] [address] 5416 Aug, [facility] [place] [facility] [address] [id number] [place] [address] 8[address] Jun, [facility] [place] [facility] [address] [id number] [place] [address] Oct, [facility] [place] [facility] [address] [id number] [place] [address] Oct, [facility] [place] [facility] [address] [id number] [place] [address] 08 Oct, 2010 [facility] [place] [facility] [address] [id number] [place] [address]- 2442 16 Dec, 2009 [facility] [place] [facility] [address] [id number] [place] [address]- [address] Dec, [facility] [place] [facility] [address] [id number] [place] [address] 6347 18 Dec, 2009 [facility] [place] [facility] [address] [id number] [place] [address] Dec, [facility] [place] [facility] [address] [id number] [place] [address] 7270 Nov, [facility] [place] [facility] [address] [id number] [place] [address]- [address]84 29 Oct, 2009 [facility] [place] [facility] [address] [id number] [place] [address] 2033 17 Oct, 2009 [facility] [place] [facility] [address] [id number] [place] [address] 15 Oct, 2009 [facility] [place] [facility] [address] [id number] [place] [address] 15 Oct, 2009 [facility] [place] [facility] [id number] [address] Sep, [facility] [id number] [place] [address] Sep, [facility] [id number] [place] [address] Aug, [facility] [id number] [place] [address] Aug, [facility] [id number] [address] Aug, [facility] [id number] [address] Aug, [facility] [id number] Aug, [facility] [id number] [id number] Jun, IMMUNIZATIONS No Known Immunizations SOCIAL HISTORY Never Assessed REASON FOR VISIT Refill Request PLAN OF CARE VITAL SIGNS MEDICATIONS Unknown Medications RESULTS No Results PROCEDURES No Known procedures INSTRUCTIONS MEDICATIONS ADMINISTERED No Known Medications MEDICAL (GENERAL) HISTORY Type Description Date Medical History Tobacco abuse Surgical History tonsillectomy age 15 Surgical History cholecystectomy 2009 Surgical History colonoscopy 3 times Surgical History 4 natural births Hospitalization History Hospitalization for surgery only
--- OUTSIDE RECORDS SUMMARY | 2018-08-17 18:11 | XMS REPORT ---
Author Author CARLOSFABY GRIGGS Organization [facility] Address [address] [place] [address] Care Team Providers Care Groover And Turner Name Role Phone FABY GONZALEZ Unavailable PROBLEMS Type Condition ICD9-CM Code RVT27-MP Code Onset Dates Condition Status SNOMED Code Problem Generalized anxiety disorder F41.1 Active 63547432 Problem Other chronic pain G89.29 Active 45683001 Problem History of methamphetamine abuse Z87.898 Active 976481702 Problem Cervical high risk HPV (human papillomavirus) test positive R87.810 Active 706263622 Problem Atyp squam cell of undet signfc cyto smr crvx (ASC-US) R87.610 Active 713643498 Problem Major depressive disorder, recurrent episode, moderate F33.1 Active 671265733 Problem BMI 36.0-36.9,adult Z68.36 Active 928485351 Problem BMI 39.0-39.9,adult Z68.39 Active 398469914 Problem Alkaline phosphatase elevation R74.8 Active 636302803 Problem Irritable bowel syndrome with diarrhea K58.0 Active 470134970 Problem Recurrent major depressive disorder, in partial remission F33.41 Active 18615861 Problem Anxiety F41.9 Active 17560939 ALLERGIES Substance Reaction Event Type Date Status Naproxen swelling Drug Allergy Nov, Active ENCOUNTERS Encounter Location Date Diagnosis [facility] [id number], [place] [address] May, [facility] [address], [place] [address] Apr, [facility] [address], [place] [address] Apr, Weight loss counseling, encounter for Z71.3 and BMI 36.0- 36.9,adult Z68.36 [facility] [address], [place] [address] Apr, Anxiety F41.9 [facility] [id number] [place] [address] 57903- 5328 March, Other chronic pain G89.29 [place] [id number] [place] [address] 41492- 4093 March, [facility] [id number] [place] [address] 91297- 0476 March, Generalized anxiety disorder F41.1 and Major depressive disorder, recurrent episode, moderate F33.1 [facility] [id number] [place] [address] 76358- 9863 Jan, Encounter for Depo-Provera contraception Z30.42 [facility] [id number] [place] [address] 26296- 6915 Jan, Generalized anxiety disorder F41.1 and Major depressive disorder, recurrent episode, moderate F33.1 [facility] [facility] [id number] [place] [address] 24107- 7746 Dec, Anxiety F41.9 and Recurrent major depressive disorder, in partial remission F33.41 [place] [id number] [place] [address] 31286- 6844 Nov, [place] [id number] [place] [address] 23039- 9105 Nov, Other chronic pain G89.29 ; Encounter for surveillance of injectable contraceptive Z30.42 ; BMI 39.0-39.9,adult Z68.39 and Encounter for Depo-Provera contraception Z30.42 [facility] [id number] [place] [address] 90685- 4753 Sep, Anxiety F41.9 and Recurrent major depressive disorder, in partial remission F33.41 [facility] [address], [place] [address] Aug, Generalized anxiety disorder F41.1 and Major depressive disorder, recurrent episode, moderate F33.1 [facility] [id number] [place] [address] 61914- 8905 Aug, [facility] [id number] [place] [address] 35605- 5849 Aug, Anxiety F41.9 and Major depressive disorder, recurrent episode, moderate F33.1 [facility] [id number] [place] [address] 79490- 4520 25 Jul, 2017 Encounter for immunization Z23 [facility] [id number] [place] [address] 38028- 6873 Jul, [place] [id number] [place] [address] 13979- 7642 19 Jul, 2017 [place] [id number] [place] [address] 45109- 6696 14 Jul, 2017 Alkaline phosphatase elevation R74.8 [facility] [id number] [place] [address] 36819- 8755 13 Jul, 2017 Encounter for annual physical exam Z00.00 [facility] [id number] [place] [address] 98663- 0876 13 Jul, 2017 [facility] [id number] [place] [address] 99639- 3520 12 Jul, 2017 Routine gynecological examination Z01.419 ; Dysuria R30.0 and Screening breast examination Z12.31 [place] [id number] [place] [address] 94618- 0436 12 Jul, 2017 Generalized anxiety disorder F41.1 and Major depressive disorder, recurrent episode, moderate F33.1 [facility] [id number] [place] [address] 64372- 3032 08 Jul, 2017 [place] [id number] [place] [address] 34373- 6855 Jun, Generalized anxiety disorder F41.1 and Major depressive disorder, recurrent episode, moderate F33.1 [facility] [address], [place] [address] 0315 Jun, Other chronic pain G89.29 [facility] [address] [address] May, Dental caries K02.9 [facility] [id number] [place] [address] 35642- 0224 May, Generalized anxiety disorder F41.1 and Major depressive disorder, recurrent episode, moderate F33.1 [facility] [address] [address] May, Dental examination Z01.20 [facility] [id number] [place] [address] 20627- 1009 March, [facility] [id number] [place] [address] 34863- 1679 March, Generalized anxiety disorder F41.1 and Major depressive disorder, recurrent episode, moderate F33.1 [facility] [address], [place] [address] 9567 March, Encounter for annual physical exam Z00.00 and Other chronic pain G89.29 [facility] [address], [place] [address]- 7932 Jan, Generalized anxiety disorder F41.1 and Major depressive disorder, recurrent episode, moderate F33.1 [facility] [address], [place] [address]- 7401 Jan, [facility] [address], [place] [address]- 8613 Dec, Generalized anxiety disorder F41.1 and Major depressive disorder, recurrent episode, moderate F33.1 [facility] [address] [address] [address] Dec, Generalized anxiety disorder F41.1 and Major depressive disorder, recurrent episode, moderate F33.1 [facility] [address], [place] [address]- 7587 Dec, [place] [id number] [place] [address] 74421- 7110 Dec, Generalized anxiety disorder F41.1 and Major depressive disorder, recurrent episode, moderate F33.1 [place] [id number] [place] [address] 24560- 6216 15 Dec, 2016 Diarrhea, unspecified type R19.7 ; Irritable bowel syndrome with diarrhea K58.0 and Alkaline phosphatase elevation R74.8 [place] [id number] [place] [address] 36384- 1789 Dec, Diarrhea, unspecified type R19.7 and Alkaline phosphatase elevation R74.8 [place] [id number] [place] [address] 00800- 6508 Dec, Generalized anxiety disorder F41.1 and Major depressive disorder, recurrent episode, moderate F33.1 [facility] [id number] [place] [address] 99233- 8165 Dec, Low back pain M54.5 [facility] [id number] [place] [address] 70142- 9494 Dec, Generalized anxiety disorder F41.1 and Major depressive disorder, recurrent episode, moderate F33.1 [place] [id number] [place] [address] 46576- 8153 Dec, Irritable bowel syndrome with diarrhea K58.0 and Diarrhea, unspecified type R19.7 [facility] [id number] [place] [address] 27909- 0771 Dec, [place] [id number] [place] [address] 41408- 4630 Dec, Generalized anxiety disorder F41.1 and Major depressive disorder, recurrent episode, moderate F33.1 [facility] [id number] [place] [address] 95076 -7350 Nov, Cough R05 ; Viral illness B34.9 and Chronic diarrhea K52.9 [facility] [address] [place] [address] 62492- 7472 Nov, Generalized anxiety disorder F41.1 and Major depressive disorder, recurrent episode, moderate F33.1 [facility] [id number] [place] [address] 34707- 4929 Nov, Encounter for Depo-Provera contraception Z30.42 [place] [id number] [place] [address] 84301- 8959 Nov, Generalized anxiety disorder F41.1 and Major depressive disorder, recurrent episode, moderate F33.1 [place] [id number] [place] [address] 23589- 9184 Nov, Low back pain M54.5 [place] [id number] [place] [address] 93571- 4638 Oct, Generalized anxiety disorder F41.1 and Major depressive disorder, recurrent episode, moderate F33.1 [place] [id number] [place] [address] 28803- 1758 Sep, Low back pain M54.5 and Other chronic pain G89.29 [place] [id number] [place] [address] 29607- 7235 Sep, Generalized anxiety disorder F41.1 and Major depressive disorder, recurrent episode, moderate F33.1 [place] [id number] [place] [address] 00311- 8678 Sep, Encounter for Depo-Provera contraception Z30.42 [facility] [id number] [place] [address] 19344- 5807 Jul, [place] [id number] [place] [address] 02377- 8364 Jul, [place] [id number] [place] [address] 67366- 4948 Jul, Encounter for immunization Z23 [place] [id number] [place] [address] 43930- 6855 Jun, Encounter for Depo-Provera contraception Z30.42 [facility] [id number] [place] [address] 27224- 3148 Jun, Generalized anxiety disorder F41.1 and Major depressive disorder, recurrent episode, moderate F33.1 [facility] [id number] [place] [address] 84020- 0070 May, Generalized anxiety disorder F41.1 and Major depressive disorder, recurrent episode, moderate F33.1 [facility] [id number] [place] [address] 14632- 7801 Apr, Generalized anxiety disorder F41.1 and Major depressive disorder, recurrent episode, moderate F33.1 [place] [id number] [place] [address] 35516- 4227 March, Encounter for Depo-Provera contraception Z30.42 [facility] [id number] [place] [address] 78577- 5079 March, Generalized anxiety disorder F41.1 and Major depressive disorder, recurrent episode, moderate F33.1 [facility] [id number] [place] [address] 92182- 0877 Jan, Generalized anxiety disorder F41.1 and Major depressive disorder, recurrent episode, moderate F33.1 [facility] [id number] [place] [address] 73832- 1578 Jan, [facility] [id number] [place] [address] 99291 -4886 Jan, Oral infection K12.2 [facility] [id number] [place] [address] 09511- 2057 Jan, Tobacco abuse Z72.0 and Hypokalemia E87.6 [facility] [id number] [place] [address] 89001- 7559 Jan, [facility] [address] [place] [address]- 3298 Dec, Screening, lipid Z13.220 and Hypokalemia E87.6 [place] [address] 50531- 0936 Dec, Screening, lipid Z13.220 ; Screening for diabetes mellitus Z13.1 and Tobacco abuse Z72.[address] 71653- 7371 Dec, Generalized anxiety disorder F41.1 and Major depressive disorder, recurrent episode, moderate F33.[address] 96208- 1988 03 Dec, 2015 Routine follow-up Z39.2 ; Encounter for Depo- Provera contraception Z30.42 ; Atyp squam cell of undet signfc cyto smr crvx ( ASC-US) R87.610 and Cervical high risk human papillomavirus (HPV) DNA test positive R87.810 [place] [address] 55646- 5180 Dec, Generalized anxiety disorder F41.1 and Major depressive disorder, recurrent episode, moderate F33.[address] 85823- 2077 Nov, Unspecified high-risk O09.90 and 39 weeks gestation of Z3A.[address] 57315- 0534 Nov, Unspecified high-risk O09.90 and 38 weeks gestation of Z3A.[address] 85196- 0604 Nov, Unspecified high-risk O09.90 ; Dental infection K04.7 and 37 weeks gestation of Z3A.37 [id number] [place] [address] 50197- 0929 Oct, screening for streptococcus B Z36 ; 36 weeks gestation of Z3A.36 and Breech presentation, not applicable or unspecified fetus O32.1XX0 [place] [id number] [place] [address] 02029- 6071 Oct, Unspecified high-risk O09.90 and 34 weeks gestation of Z3A.34 [place] [address] 92814- 2305 Oct, 32 weeks gestation of Z3A.32 and Unspecified high- risk O09.90 [place] [address] 63797- 5081 Sep, Unspecified high-risk O09.90 ; Encounter for immunization Z23 and 30 weeks gestation of Z3A.30 [place] [address] 66546- 7790 Sep, Generalized anxiety disorder F41.1 and Major depressive disorder, recurrent episode, moderate F33.1 [place] [address] 41170- 6965 Aug, Unspecified high-risk O09.90 [place] [address] 12375- 5327 Aug, Unspecified high-risk O09.90 [place] [address] 30938- 5865 Aug, Dental infection K04.7 [place] [address] 84769- 7598 Aug, Dysuria R30.0 [place] [address] 59113- 8154 Aug, Dysuria R30.0 [place] [address] 55761- 3568 Jul, Influenza vaccine administered V04.81 [place] [address] 65013- 9540 Jul, Unspecified high-risk V23.9 [facility] [address] [address]- 2094 Jul, Unspecified high-risk V23.9 and ASCUS with positive high risk HPV 796.9 [facility] [address], [place] [address]- 8048 Jul, [facility] [id number] [place] [address] 29017- 2685 Jun, [facility] [address] [place] [address] 41657- 4772 Jun, Unspecified high-risk V23.9 ; Pap test, as part of routine gynecological examination V76.2 and Screen for STD (sexually transmitted disease) V74.5 [place] [address], [place] [address]- 7591 Jun, test positive V72.42 ; Unspecified high-risk V23.9 ; UTI in 646.60 and Vomiting 643.90 [facility] [address], [place] [address]- 2645 Jun, [facility] [id number] [place] [address] 89298- 8919 Jun, [facility] [address], [place] [address]- 4816 Jun, [facility] [address] [place] [address] 79746- 8808 May, [facility] [address], [place] [address]- 2316 Apr, [facility] [id number] [place] [address] 73928- 4653 Apr, Absence of menstruation 626.0 [facility] [address], [place] [address]- 8686 Jan, [facility] [place] [facility] [address] [id number] [place] [address]- 4896 Jan, [facility] [place] [facility] [address] [id number] [place] [address]- 3987 Dec, [facility] [place] [facility] [address] [id number] [place] [address]- 5106 Dec, [facility] [place] [facility] [address] [id number] [place] [address]- 6415 Dec, [facility] [place] [facility] [address] [id number] [place] [address]- 3714 Dec, [facility] [place] [facility] [address] [id number] [place] [address]- 2192 Nov, [facility] [place] [facility] [address] [id number] [place] [address]- 6106 Nov, [facility] [place] [facility] [address] [id number] [place] [address]- 7757 Nov, [facility] [place] [facility] [address] [id number] [place] [address]- 7721 Nov, [facility] [place] [facility] [address] [id number] [place] [address]- 2039 Nov, [facility] [place] [facility] [address] [id number] [place] [address]- 2267 Nov, [facility] [place] [facility] [address] [id number] [place] [address]- 2180 Nov, [facility] [place] [facility] [address] [id number] [place] [address]- 4019 Nov, [facility] [place] [facility] [address] [id number] [place] [address]- 1002 Oct, [facility] [place] [facility] [address] [id number] [place] [address]- 5229 Oct, [facility] [place] [facility] [address] [id number] [place] [address]- 8771 Oct, [facility] [place] [facility] [address] [id number] [place] [address]- 8028 Oct, [facility] [place] [facility] [address] [id number] [place] [address]- 7305 Sep, [facility] [place] [facility] [address] [id number] [place] [address]- 2061 Sep, [facility] [place] [facility] [address] [id number] [place] [address]- 9799 Jul, [facility] [place] [facility] [address] [id number] [place] [address]- 6935 Jul, [facility] [place] [facility] [address] [id number] [place] [address]- 1921 Apr, [facility] [place] [facility] [address] [id number] [place] [address]- 5574 Apr, [facility] [place] [facility] [address] [id number] [place] [address]- 2490 March, [facility] [place] [facility] [address] [id number] [place] [address]- 6344 March, [facility] [place] [facility] [address] [id number] [place] [address]- 4144 March, [facility] [place] [facility] [address] [id number] [place] [address]- 8800 March, [facility] [place] [facility] [address] [id number], [place] [address]- 5050 Nov, [facility] [place] [facility] [address] [id number] [place] [address]- 2214 Nov, [facility] [place] [facility] [address] [id number] [place] [address]- 3036 Nov, [facility] [place] [facility] [address] [id number] [place] [address]- 3015 Nov, [facility] [place] [facility] [address] [id number] [place] [address]- 1292 Nov, [facility] [address] [id number] [place] [address]- 2528 Nov, [facility] [address] [id number] [place] [address]- 8404 Nov, [facility] [address] [id number] [place] [address]- 9229 Nov, [facility] [address] [id number] [place] [address]- 4133 Nov, [facility] [address] [id number] [place] [address]- 8748 Nov, [facility] [address] [id number] [place] [address]- 9928 Nov, [facility] [address] [id number] [place] [address]- 4588 Oct, [facility] [address] [id number] [place] [address]- 4117 16 Oct, 2013 [facility] [address] [id number] [place] [address]- 2806 16 Oct, 2013 [facility] [address] [id number] [place] [address]- 9448 13 Oct, 2013 [facility] [address] [id number] [place] [address]- 6470 13 Oct, 2013 [facility] [address] [id number] [place] [address]- 6538 12 Oct, 2013 [facility] [address] [id number] [place] [address]- 5985 11 Oct, 2013 [facility] [address] [id number] [place] [address]- 6160 11 Oct, 2013 [facility] [address] [id number] [place] [address]- 4166 Oct, [facility] [place] [facility] [address] [id number] [place] [address]- 3425 Oct, [facility] [place] [facility] [address] [id number] [place] [address]- 9354 Oct, [facility] [place] [facility] [address] [id number] [place] [address]- 2280 Oct, [facility] [place] [facility] [address] [id number] [place] [address]- 7522 Sep, [facility] [place] [facility] [address] [id number] [place] [address]- 4715 Sep, [facility] [place] [facility] [address] [id number] [place] [address]- 6095 Sep, [facility] [place] [facility] [address] [id number] [place] [address]- 9172 Sep, [facility] [place] [facility] [address] [id number] [place] [address]- 3661 Aug, [facility] [place] [facility] [address] [id number] [place] [address]- 7764 Aug, [facility] [place] [facility] [address] [id number], [place] [address]- 6028 Aug, [facility] [place] [facility] [address] [id number], [place] [address]- 0436 Aug, [facility] [place] [facility] [address] [id number], [place] [address]- 7109 Jun, [facility] [place] [facility] [address] [id number], [place] [address]- 8367 Jun, [facility] [place] [facility] [address] [id number], [place] [address]- 1166 Apr, [facility] [place] [facility] [address] [id number], [place] [address]- 8106 March, [facility] [place] [facility] [address] [id number], [place] [address] 17 Jan, 2013 [facility] [address] [id number] [place] [address] 16 Jan, 2013 [facility] [place] [facility] [address] [id number] [place] [address] 15 Jan, 2013 [facility] [place] [facility] [address] [facility] [id number] [place] [address] 11 Jan, 2013 [facility] [place] [facility] [address] [id number] [place] [address] Dec, [facility] [place] [facility] [address] [id number] [place] [address] Dec, [facility] [place] [facility] [address] [facility] [id number] [place] [address] Dec, [facility] [address] [facility] [id number] [place] [address] Dec, [facility] [place] [facility] [address] [facility] [id number] [place] [address] Oct, [facility] [address] [facility] [id number] [place] [address] Oct, [facility] [place] [facility] [address] [facility] [id number] [place] [address] Oct, [facility] [address] [facility] [id number] [place] [address] Oct, [facility] [place] [facility] [address] [facility] [id number] [place] [address] Oct, [facility] [place] [facility] [address] [id number] [place] [address] Oct, [facility] [place] [facility] [address] [facility] [id number] [place] [address] Sep, [facility] [place] [facility] [address] [facility] [id number] [place] [address] Sep, [facility] [place] [facility] [address] [id number] [place] [address] Aug, [facility] [place] [facility] [address] [id number] [place] [address] Aug, [facility] [place] [facility] [address] [id number] [place] [id number] Aug, [facility] [place] [facility] [address] [id number] [place] [address] Jul, [facility] [place] [facility] [address] [id number] [place] [id number] Jul, [facility] [place] [facility] [address] [id number] [place] [address]- [address] Jul, [facility] [place] [facility] [address] [id number] [place] [address] Jul, [facility] [place] [facility] [address] [id number] [place] [address]- [address] Jun, [facility] [place] [facility] [address] [id number] [place] [address] Jun, [facility] [place] [facility] [address] [id number] [place] [address] Jun, [facility] [place] [facility] [address] [id number] [place] [address] Jun, [facility] [place] [facility] [address] [id number] [place] [address] Jun, [facility] [facility] [address] [id number] [place] [address] May, [facility] [place] [facility] [address] [id number] [place] [address] May, [facility] [place] [facility] [address] [id number] [place] [address] Apr, [facility] [place] [facility] [address] [id number] [place] [address] Apr, [facility] [place] [facility] [address] [id number] [place] [address] Apr, [facility] [place] [facility] [address] [id number] [place] [address] March, [facility] [place] [facility] [address] [id number] [place] [address] March, [facility] [place] [facility] [address] [id number] [place] [address] March, [facility] [place] [facility] [address] [id number] [place] [address] Jan, [facility] [place] [facility] [address] [id number] [place] [address] Dec, [facility] [place] [facility] [address] [id number] [place] [address] Dec, [facility] [place] [facility] [address] [id number] [place] [address] Dec, [facility] [place] [facility] [address] [id number] [place] [address] Dec, [facility] [place] [facility] [address] [facility] [id number] [place] [address] Dec, [facility] [place] [facility] [address] [id number] [place] [address] Dec, [facility] [place] [facility] [address] [id number] [place] [address] Dec, [facility] [place] [facility] [address] [id number] [place] [address] Dec, [facility] [place] [facility] [address] [id number] [place] [address] Dec, [facility] [place] [facility] [address] [facility] [id number] [place] [address] Dec, [facility] [place] [facility] [address] [id number] [place] [address] 13 Dec, 2011 [facility] [address] [id number] [place] [address] 11 Dec, 2011 [facility] [address] [id number] [place] [address]656 10 Dec, 2011 [facility] [address] [id number] [place] [address] 30 Nov, 2011 [facility] [address] [id number] [place] [address]- 6[address] 24 Nov, 2011 [facility] [address] [id number] [place] [address] Nov, [facility] [address] [id number] [place] [address] 17 Nov, 2011 [facility] [address] [id number] [place] [address] 17 Nov, [address] [facility] [address] [id number] [place] [address] 7925 16 Nov, 2011 [facility] [address] [id number] [place] [address] Nov, [facility] [address] [id number] [place] [address] Nov, [facility] [address] [id number] [place] [address] Oct, [facility] [address] [id number] [place] [address] Oct, [facility] [address] [id number] [place] [address] Oct, [facility] [address] [id number] [place] [address] Oct, [facility] [address] [id number] [place] [address] Oct, [facility] [place] [facility] [address] [id number] [place] [address] 94[address] 13 Oct, 2011 [facility] [place] [facility] [address] [id number] [place] [address] 07 Oct, 2011 [facility] [place] [facility] [address] [id number] [place] [address] Sep, [facility] [place] [facility] [address] [id number] [place] [address] Sep, [facility] [place] [facility] [address] [id number] [place] [address] Sep, [facility] [place] [facility] [address] [id number] [place] [address]- 1506 16 Sep, 2011 [facility] [place] [facility] [address] [id number] [place] [address]- [address] Sep, [facility] [place] [facility] [address] [id number] [place] [address] Sep, [facility] [place] [facility] [address] [id number] [place] [address]70 Sep, [facility] [address] [id number], [place] [address] Aug, [facility] [facility] [address] [id number], [place] [address] Aug, [facility] [facility] [address] [id number], [place] [address] Jun, [facility] [place] [facility] [address] [id number] [place] [address]- 2028 Oct, [facility] [place] [facility] [address] [id number] [place] [address] 8699 Oct, [facility] [place] [facility] [address] [id number] [place] [address] 08 Oct, 2010 [facility] [place] [facility] [address] [id number] [place] [address] 16 Dec, 2009 [facility] [place] [facility] [address] [id number] [place] [address]- 3986 11 Dec, 2009 [facility] [place] [facility] [address] [id number] [place] [address] 2546 18 Dec, 2009 [facility] [place] [facility] [address] [id number] [place] [address] 2546 11 Dec, 2009 [facility] [place] [facility] [address] [id number] [place] [address] 254 20 Nov, 2009 [facility] [place] [facility] [address] [id number] [place] [address] 29 Oct, 2009 [facility] [place] [facility] [address] [id number] [place] [address] 2546 17 Oct, 2009 [facility] [place] [facility] [address] [facility] [id number] [place] [address]- [address]01 15 Oct, 2009 [facility] [place] [facility] [address] [id number] [place] [address] 2540 15 Oct, 2009 [facility] [place] [facility] [address] [facility] [id number] [place] [address]- 2614 24 Sep, 2009 [facility] [place] [facility] [address] [facility] [id number] [place] [address]- [address] 03 Sep, 2009 [facility] [place] [facility] [address] [id number] [place] [address] 2544 29 Aug, 2009 [facility] [facility] [address] [id number], [place] [address]48 23 Aug, 2009 [facility] [address] [id number] [place] [address] 2549 13 Aug, 2009 [facility] [facility] [address] [id number] [place] [address]- 2546 13 Aug, 2009 [facility] [address] [id number], [place] [address] Aug, [facility] [address] [facility] [id number] [place] [address] Jun, IMMUNIZATIONS Vaccine Route Administration Date Status DEPO PROVERA (150 MG/ML) IM Intramuscular Nov 12, 2017 Administered SOCIAL HISTORY Never Assessed REASON FOR VISIT IBS-tjanssenMA, --needs refill on her muscle relaxers at [facility], --questions about taking phentermine again to help her loose weight as she has been dieting and exercising with no change. , --wants to get tubes tied, talk about getting depo inj PLAN OF CARE Activity Details Follow Up 4 Weeks Reason:weight management VITAL SIGNS Height 68 in 2017-11-12 Weight 262 lbs 2017-11-12 Temperature 97.8 degrees Fahrenheit 2017-11-12 Heart Rate 80 bpm 2017-11-12 Respiratory Rate 18 2017-11-12 BMI 39.83 kg/m2 2017-11-12 Blood pressure systolic 122 mmHg 2017-11-12 Blood pressure diastolic 88 mmHg 2017-11-12 MEDICATIONS Medication Instructions Dosage Frequency Start Date End Date Duration Status Tizanidine HCl 4 MG Orally Three times a day 1 tablet as needed 8h 90 days Active Viibryd 20 MG Orally Once a day 1 tablet with food 24h 30 days Active Contrave 8-90 MG Orally Twice a day 2 tablets 12h 12 Nov, 2017 Dec, 30 day(s) Active HydrOXYzine HCl 10 MG Orally twice a day as needed for anxiety 1 tablet 05 Aug, 2017 30 days Not-Taking RESULTS Name Result Date Reference Range TEST, URINE (IN HOUSE) 2017-11-12 RESULTS negative Lot # [id number] Control + Exp date 03/2019 PROCEDURES Procedure Date Ordered Result Body Site URINE TEST Nov 12, 2017 THER/PROPH/DIAG INJ, SC/IM Nov 12, 2017 DEPO PROVERA (150 MG/ML) Nov 12, 2017 INSTRUCTIONS MEDICATIONS ADMINISTERED No Known Medications MEDICAL (GENERAL) HISTORY Type Description Date Medical History Tobacco abuse Surgical History tonsillectomy age 15 Surgical History cholecystectomy 2010 Surgical History colonoscopy 3 times Surgical History 4 natural births Hospitalization History Hospitalization for surgery only
--- OUTSIDE RECORDS SUMMARY | 2018-08-17 18:12 | XMS REPORT ---
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 Name Role Phone ELISEJUAN MANUEL NASHA Unavailable PROBLEMS Type Condition ICD9-CM Code [id number] Code Onset Dates Condition Status SNOMED Code Problem Major depressive disorder, recurrent episode, moderate F33.1 Active 804457834 Problem History of methamphetamine abuse Z87.898 Active 142674170 Problem Generalized anxiety disorder F41.1 Active 33520922 Problem Cervical high risk HPV (human papillomavirus) test positive R87.810 Active 615984602 Problem Atyp squam cell of undet signfc cyto smr crvx (ASC-US) R87.610 Active 988043780 Problem BMI 39.0-39.9,adult Z68.39 Active 574627755 Problem Recurrent major depressive disorder, in partial remission F33.41 Active 91227927 Problem Irritable bowel syndrome with diarrhea K58.0 Active 489005633 Problem Other chronic pain G89.29 Active 17449714 Problem Anxiety F41.9 Active 38913508 Problem Alkaline phosphatase elevation R74.8 Active 652119873 ALLERGIES Substance Reaction Event Type Date Status Naproxen swelling Drug Allergy Aug, Active ENCOUNTERS Encounter Location Date Diagnosis [facility] [id number] [address] May, [facility] [id number], [place] [address] Apr, [facility] [id number] [place] [address] 64153- 1299 March, Generalized anxiety disorder F41.1 and Major depressive disorder, recurrent episode, moderate F33.1 [facility] [id number] [place] [address] 55330- 8491 Jan, Encounter for Depo-Provera contraception Z30.42 [facility] [id number] [place] [address] 98921- 8993 Jan, Generalized anxiety disorder F41.1 and Major depressive disorder, recurrent episode, moderate F33.1 [facility] [id number] [place] [address] 81122- 4172 Dec, Anxiety F41.9 and Recurrent major depressive disorder, in partial remission F33.41 [facility] [id number] [place] [address] 15997- 6919 Nov, [facility] [address] 08430- 7456 Nov, Other chronic pain G89.29 ; Encounter for surveillance of injectable contraceptive Z30.42 ; BMI 39.0-39.9,adult Z68.39 and Encounter for Depo-Provera contraception Z30.42 [facility] [id number] [place] [address] 31709- 3976 Sep, Anxiety F41.9 and Recurrent major depressive disorder, in partial remission F33.41 [facility] [id number] [place] [address] 31259- 0721 Aug, Generalized anxiety disorder F41.1 and Major depressive disorder, recurrent episode, moderate F33.1 [facility] [id number] [place] [address] 75774- 8582 Aug, [facility] [id number] [place] [address] 22372- 4976 Aug, Anxiety F41.9 and Major depressive disorder, recurrent episode, moderate F33.1 [facility] [address] 96651- 4034 Jul, Encounter for immunization Z23 [facility] [id number] [place] [address] 52456- 9672 Jul, [facility] [address] 14461- 2816 19 Jul, 2017 [facility] [id number] [place] [address] 82743- 1721 14 Jul, 2017 Alkaline phosphatase elevation R74.8 [facility] [id number] [place] [address] 42339- 0858 13 Jul, 2017 Encounter for annual physical exam Z00.00 [facility] [address] 63375- 8075 13 Jul, 2017 [facility] [id number] [place] [address] 57460- 4165 12 Jul, 2017 Routine gynecological examination Z01.419 ; Dysuria R30.0 and Screening breast examination Z12.31 [facility] [id number] [place] [address] 42163- 9423 12 Jul, 2017 Generalized anxiety disorder F41.1 and Major depressive disorder, recurrent episode, moderate F33.1 [facility] [id number] [place] [address] 61620- 2548 08 Jul, 2017 [facility] [id number] [place] [address] 71958- 3881 Jun, Generalized anxiety disorder F41.1 and Major depressive disorder, recurrent episode, moderate F33.1 [facility] [id number] [place] [address] 40342- 5544 09 Jun, 2017 Other chronic pain G89.29 [facility] [id number] [place] [address] [id number] May, Dental caries K02.9 [facility] [id number] [place] [address] 84728- 7018 May, Generalized anxiety disorder F41.1 and Major depressive disorder, recurrent episode, moderate F33.1 [facility] [id number] [place] [address] [id number] May, Dental examination Z01.20 [facility] [id number] [place] [address] 90819- 0624 March, [facility] [address], [place] [address] 1607 March, Generalized anxiety disorder F41.1 and Major depressive disorder, recurrent episode, moderate F33.1 [facility] [address], [place] [address] 9294 March, Encounter for annual physical exam Z00.00 and Other chronic pain G89.29 [facility] [id number] [place] [address] 19145- 3305 Jan, Generalized anxiety disorder F41.1 and Major depressive disorder, recurrent episode, moderate F33.1 [facility] [id number] [place] [address] 10029- 1193 Jan, [facility] [address] [place] [address] 72902- 2634 Dec, Generalized anxiety disorder F41.1 and Major depressive disorder, recurrent episode, moderate F33.1 [facility] [id number] [place] [address] 43941- 1791 Dec, Generalized anxiety disorder F41.1 and Major depressive disorder, recurrent episode, moderate F33.1 [facility] [address], [place] [address]- 8018 Dec, [facility] [address] [place] [address] 41649- 8956 Dec, Generalized anxiety disorder F41.1 and Major depressive disorder, recurrent episode, moderate F33.1 [facility] [address] [address]- 5512 15 Dec, 2016 Diarrhea, unspecified type R19.7 ; Irritable bowel syndrome with diarrhea K58.0 and Alkaline phosphatase elevation R74.8 [facility] [address] [address]- 5550 07 Dec, 2016 Diarrhea, unspecified type R19.7 and Alkaline phosphatase elevation R74.8 [facility] [id number] [place] [address] 70521- 1054 Dec, Generalized anxiety disorder F41.1 and Major depressive disorder, recurrent episode, moderate F33.1 [facility] [id number] [place] [address] 28001- 2346 Dec, Low back pain M54.5 [facility] [id number] [place] [address] 90769- 8287 Dec, Generalized anxiety disorder F41.1 and Major depressive disorder, recurrent episode, moderate F33.1 [facility] [address] 73004- 2440 Dec, Irritable bowel syndrome with diarrhea K58.0 and Diarrhea, unspecified type R19.7 [facility] [id number] [place] [address] 81216- 9605 Dec, [facility] [address] 34407- 3758 Dec, Generalized anxiety disorder F41.1 and Major depressive disorder, recurrent episode, moderate F33.1 [facility] [id number] [place] [address] 76490 -0407 Nov, Cough R05 ; Viral illness B34.9 and Chronic diarrhea K52.9 [facility] [id number] [place] [address] 22255- 8702 Nov, Generalized anxiety disorder F41.1 and Major depressive disorder, recurrent episode, moderate F33.1 [facility] [id number] [place] [address] 28552- 0325 Nov, Encounter for Depo-Provera contraception Z30.42 [facility] [id number] [place] [address] 87477- 6447 Nov, Generalized anxiety disorder F41.1 and Major depressive disorder, recurrent episode, moderate F33.1 [facility] [id number] [place] [address] 89212- 3888 Nov, Low back pain M54.5 [facility] [id number] [place] [address] 74641- 3905 Oct, Generalized anxiety disorder F41.1 and Major depressive disorder, recurrent episode, moderate F33.1 [facility] [id number] [place] [address] 13971- 4078 Sep, Low back pain M54.5 and Other chronic pain G89.29 [facility] [id number] [place] [address] 26796- 8099 Sep, Generalized anxiety disorder F41.1 and Major depressive disorder, recurrent episode, moderate F33.1 [facility] [id number] [place] [address] 73779- 4365 Sep, Encounter for Depo-Provera contraception Z30.42 [facility] [id number] [place] [address] 29001- 3709 Jul, [facility] [id number] [place] [address] 56357- 0276 Jul, [facility] [id number] [place] [address] 07777- 6396 Jul, Encounter for immunization Z23 [facility] [id number] [place] [address] 14504- 2526 Jun, Encounter for Depo-Provera contraception Z30.42 [facility] [id number] [place] [address] 55045- 9155 Jun, Generalized anxiety disorder F41.1 and Major depressive disorder, recurrent episode, moderate F33.1 [facility] [id number] [place] [address] 84430- 2096 May, Generalized anxiety disorder F41.1 and Major depressive disorder, recurrent episode, moderate F33.1 [facility] [id number] [place] [address] 97481- 5223 Apr, Generalized anxiety disorder F41.1 and Major depressive disorder, recurrent episode, moderate F33.1 [facility] [id number] [place] [address] 98822- 8996 March, Encounter for Depo-Provera contraception Z30.42 [facility] [id number] [place] [address] 66417- 5965 March, Generalized anxiety disorder F41.1 and Major depressive disorder, recurrent episode, moderate F33.1 [facility] [address] 90684- 4911 Jan, Generalized anxiety disorder F41.1 and Major depressive disorder, recurrent episode, moderate F33.1 [address] [facility] [address] 370602- 6116 Jan, [facility] [id number] [place] [address] 60433 -8096 Jan, Oral infection K12.2 [facility] [address] 88589- 1881 Jan, Tobacco abuse Z72.0 and Hypokalemia E87.6 [address] [address] 06029- 7361 Jan, [facility] [id number] [place] [address] 61887- 6875 Dec, Screening, lipid Z13.220 and Hypokalemia E87.6 [facility] [id number] [place] [address] 21539- 0285 Dec, Screening, lipid Z13.220 ; Screening for diabetes mellitus Z13.1 and Tobacco abuse Z72.0 [address] [address] 80128- 7584 Dec, Generalized anxiety disorder F41.1 and Major depressive disorder, recurrent episode, moderate F33.1 [facility] [id number] [place] [address] 71168- 2676 Dec, Routine follow-up Z39.2 ; Encounter for Depo- Provera contraception Z30.42 ; Atyp squam cell of undet signfc cyto smr crvx ( ASC-US) R87.610 and Cervical high risk human papillomavirus (HPV) DNA test positive R87.810 [address] [facility] [address] 28731- 6709 08 Dec, 2015 Generalized anxiety disorder F41.1 and Major depressive disorder, recurrent episode, moderate F33.[address] 73935- 6232 Nov, Unspecified high-risk O09.90 and 39 weeks gestation of Z3A.[address] 70898- 6715 Nov, Unspecified high-risk O09.90 and 38 weeks gestation of Z3A.[address] 85151- 7702 Nov, Unspecified high-risk O09.90 ; Dental infection K04.7 and 37 weeks gestation of Z3A.[address] 90548- 1029 Oct, screening for streptococcus B Z36 ; 36 weeks gestation of Z3A.36 and Breech presentation, not applicable or unspecified fetus O32.1XX0 [address] 10095- 9060 Oct, Unspecified high-risk O09.90 and 34 weeks gestation of Z3A.[address] 62602- 6878 Oct, 32 weeks gestation of Z3A.32 and Unspecified high- risk O09.[address] 84740- 1749 Sep, Unspecified high-risk O09.90 ; Encounter for immunization Z23 and 30 weeks gestation of Z3A.[id number] [place] [address] 52462- 7535 Sep, Generalized anxiety disorder F41.1 and Major depressive disorder, recurrent episode, moderate F33.1 [facility] [id number] [place] [address] 57625- 3976 Aug, Unspecified high-risk O09.90 [facility] [address] 31848- 1704 Aug, Unspecified high-risk O09.90 [facility] [id number] [place] [address] 58396- 7149 Aug, Dental infection K04.7 [facility] [id number] [place] [address] 65199- 0075 Aug, Dysuria R30.0 [facility] [id number] [place] [address] 41878- 7648 Aug, Dysuria R30.0 [facility] [id number] [place] [address] 08696- 9948 Jul, Influenza vaccine administered V04.81 [facility] [id number] [place] [address] 56383- 4750 Jul, Unspecified high-risk V23.9 [facility] [id number] [place] [address] 47691- 0524 Jul, Unspecified high-risk V23.9 and ASCUS with positive high risk HPV 796.9 [facility] [id number] [place] [address] 43191- 6286 Jul, [facility] [id number] [place] [address] 79450- 5282 Jun, [facility] [id number] [place] [address] 87046- 6308 Jun, Unspecified high-risk V23.9 ; Pap test, as part of routine gynecological examination V76.2 and Screen for STD (sexually transmitted disease) V74.5 [facility] [address] [address]- 9979 Jun, test positive V72.42 ; Unspecified high-risk V23.9 ; UTI in 646.60 and Vomiting 643.90 [facility] [address], [place] [address]- 4052 Jun, [facility] [id number] [place] [address] 189030- 3759 Jun, [facility] [id number] [place] [address] 826240- 5110 Jun, [facility] [id number] [place] [address] 782104- 0565 May, [facility] [id number] [place] [address] 17192- 2518 Apr, [facility] [id number] [place] [address] 98188- 1790 Apr, Absence of menstruation 626.0 [facility] [id number] [place] [address] 69666- 6082 Jan, [facility] [address], [place] [address]- 8127 Jan, [facility] [address] [place] [address] 44115- 2999 Dec, [facility] [address] [address]- 8283 Dec, [facility] [id number] [place] [address] 18444- 1253 Dec, [facility] [address] 4846 Dec, [facility] [address] [place] [address] 915872- 8817 Nov, [facility] [place] [facility] [address] [id number] [place] [address]- 3690 Nov, [facility] [place] [facility] [address] [id number] [place] [address]- 1596 Nov, [facility] [place] [facility] [address] [id number] [place] [address]- 2258 Nov, [facility] [place] [facility] [address] [id number] [place] [address]- 0198 Nov, [facility] [place] [facility] [address] [id number] [place] [address]- 3921 Nov, [facility] [place] [facility] [address] [id number] [place] [address]- 9733 Nov, [facility] [place] [facility] [address] [id number] [place] [address]- 3973 Nov, [facility] [place] [facility] [address] [id number] [place] [address]- 0125 Oct, [facility] [place] [facility] [address] [id number] [place] [address]- 0914 Oct, [facility] [place] [facility] [address] [id number] [place] [address]- 2015 Oct, [facility] [place] [facility] [address] [id number] [place] [address]- 2356 Oct, [facility] [place] [facility] [address] [id number] [address]- 1243 Sep, [facility] [place] [facility] [address] [id number] [place] [address]- 9611 Sep, [facility] [place] [facility] [address] [id number] [place] [address]- 8276 Jul, [facility] [place] [facility] [address] [id number] [place] [address]- 9924 Jul, [facility] [place] [facility] [address] [id number] [place] [address]- 7238 Apr, [facility] [address] [id number] [place] [address]- 2466 Apr, [facility] [place] [facility] [address] [id number] [place] [address]- 3436 March, [facility] [place] [facility] [address] [id number] [place] [address]- 2556 March, [facility] [place] [facility] [address] [id number] [place] [address]- 7890 March, [facility] [place] [facility] [address] [id number] [place] [address]- 9468 March, [facility] [place] [facility] [address] [id number] [place] [address]- 8101 Nov, [facility] [place] [facility] [address] [id number] [place] [address]- 1547 Nov, [facility] [place] [facility] [address] [id number] [place] [address]- 3549 Nov, [facility] [place] [facility] [address] [id number] [place] [address]- 9782 Nov, [facility] [place] [facility] [address] [id number] [place] [address]- 8244 Nov, [facility] [place] [facility] [address] [id number] [place] [address]- 4180 Nov, [facility] [place] [facility] [address] [id number] [place] [address]- 4967 Nov, [facility] [place] [facility] [address] [id number] [place] [address]- 5687 Nov, [facility] [place] [facility] [address] [id number] [place] [address]- 7195 Nov, [facility] [place] [facility] [address] [id number] [place] [address]- 7079 Nov, [facility] [place] [facility] [address] [id number] [place] [address]- 5715 16 Nov, 2013 [facility] [address] [id number] [place] 3526 20 Oct, 2013 [facility] [place] [facility] [address] [id number] [place] [address]- 2546 16 Oct, 2013 [facility] [place] [facility] [address] [id number] [place] [address]- 6786 16 Oct, 2013 [facility] [place] [facility] [address] [id number] [place] [address]- 7501 13 Oct, 2013 [facility] [place] [facility] [address] [id number] [place] [address]- 7171 13 Oct, 2013 [facility] [place] [facility] [address] [id number] [place] [address]- 0055 12 Oct, 2013 [facility] [place] [facility] [address] [id number] [place] [address]- 2591 11 Oct, 2013 [facility] [place] [facility] [address] [id number] [place] [address]- 7182 11 Oct, 2013 [facility] [place] [facility] [address] [id number] [place] [address]- 4218 10 Oct, 2013 [facility] [place] [facility] [address] [id number] [place] [address]- 9379 10 Oct, 2013 [facility] [place] [facility] [address] [id number] [place] [address]- 9106 09 Oct, 2013 [facility] [place] [facility] [address] [id number] [place]- 6167 09 Oct, 2013 [facility] [place] [facility] [address] [id number] [place]- 2174 11 Sep, 2013 [facility] [place] [facility] [address] [id number] [place] [address]- 3661 11 Sep, 2013 [facility] [place] [facility] [address] [id number] [place] [address]- 1052 Sep, [facility] [address] [id number] [place] [address]- 0276 Sep, [facility] [place] [facility] [address] [id number] [place] [address]- 2196 Aug, [facility] [place] [facility] [address] [id number] [place] [address] 2546 Aug, [facility] [place] [facility] [address] [id number] [place] [address]- 2546 Aug, [facility] [place] [facility] [address] [id number] [place] [address]- 2474 Aug, [facility] [place] [facility] [address] [id number] [place] [address]- 4307 Jun, [facility] [place] [facility] [address] [id number] [place] [address] Jun, [facility] [place] [facility] [address] [id number], [place] [address] Apr, [facility] [place] [facility] [address] [id number] [place] [address] March, [facility] [place] [facility] [address] [id number][place] [address] 17 Jan, 2013 [facility] [place] [facility] [address] [id number], [place] [address] 16 Jan, 2013 [facility] [place] [facility] [address] [id number], [place] [address] 15 Jan, 2013 [facility] [place] [facility] [address] [id number] [place] [address] 11 Jan, 2013 [facility] [place] [facility] [address] [id number], [place] [address] Dec, [facility] [place] [facility] [address] [id number][place] [address] Dec, [facility] [place] [facility] [address] [id number] [place] [address] Dec, [facility] [address] [id number] [place] [address] Dec, [facility] [address] [id number] [place] [address] Oct, [facility] [address] [id number] [place] [address] Oct, [facility] [place] [facility] [address] [id number] [place] [address] Oct, [facility] [address] [id number] [place] [address] Oct, [facility] [address] [facility] [id number] [place] Oct, [facility] [address] [facility] [id number] [place] [address] Oct, [facility] [address] [facility] [id number] [place] [address] Sep, [facility] [place] [facility] [address] [id number] [place] [address] Sep, [facility] [address] [facility] [id number] [place] [address] Aug, [facility] [place] [facility] [address] [facility] [id number] [place] [address] Aug, [facility] [place] [facility] [address] [facility] [id number] [place] [address] Aug, [facility] [place] [facility] [address] [id number] [place] [address] Jul, [facility] [place] [facility] [address] [facility] [id number] [place] [address] Jul, [facility] [place] [facility] [address] [facility] [id number] [place] [address] Jul, [facility] [place] [facility] [address] [id number] [place] [address] Jul, [facility] [place] [facility] [address] [id number] [place] [address] Jun, [facility] [place] [facility] [address] [id number] [place] [address] Jun, [facility] [place] [facility] [address] [id number] [place] [address] Jun, [facility] [place] [facility] [address] [id number] [place] [address] Jun, [facility] [place] [facility] [address] [id number] [place] [address] Jun, [facility] [place] [facility] [address] [id number] [place] [address] May, [facility] [place] [facility] [address] [id number] [place] [address] May, [facility] [place] [facility] [address] [id number] [place] [address] Apr, [facility] [place] [facility] [address] [id number] [place] [address] Apr, [facility] [place] [facility] [address] [id number] [place] [address] Apr, [facility] [place] [facility] [address] [id number] [address] March, [facility] [place] [facility] [address] [id number] [place] [address] March, [facility] [place] [facility] [address] [id number] [place] [address] March, [facility] [place] [facility] [address] [id number] [place] [address] Jan, [facility] [place] [facility] [address] [id number] [place] [address]- [address] 26 Dec, 2011 [facility] [address] [id number] [place] [address]- [address] 23 Dec, 2011 [facility] [place] [facility] [address] [id number] [place] [address]- 1806 22 Dec, 2011 [facility] [place] [facility] [address] [id number] [place] [address]- 9736 21 Dec, 2011 [facility] [place] [facility] [address] [id number] [place] [address]- 5760 19 Dec, 2011 [facility] [place] [facility] [address] [id number] [place] [address]- 1228 16 Dec, 2011 [facility] [place] [facility] [address] [id number] [place] [address] 3428 09 Dec, 2011 [facility] [id number] [place] [address] 29 Dec, 2011 [facility] [place] [facility] [address] [id number] [place] [address] 28 Dec, 2011 [facility] [place] [facility] [address] [id number] [place] [address]- 8396 21 Dec, 2011 [facility] [place] [facility] [address] [facility] [id number] [place] [address]- 8647 13 Dec, 2011 [facility] [place] [facility] [address] [id number] [place] [address] 11 Dec, 2011 [facility] [place] [facility] [address] [id number] [place] [address]- 0654 10 Dec, 2011 [facility] [place] [facility] [address] [id number] [place] [address]- 1448 30 Nov, 2011 [facility] [place] [facility] [address] [id number] [place] [address]- 4186 24 Nov, 2011 [facility] [place] [facility] [address] [id number] [place] [address]- 6245 Nov, [facility] [place] [facility] [address] [id number] [place] [address]- 7293 17 Nov, 2011 [facility] [address] [id number] [place] [address]- 9615 17 Nov, 2011 [facility] [address] [id number] [place] [address] 16 Nov, 2011 [facility] [address] [id number] [place] [address]- 2086 Nov, [facility] [address] [id number] [place] [address]- 9845 Nov, [facility] [address] [id number] [place] [address]- 6997 Oct, [facility] [address] [id number] [place] [address] 4408 Oct, [facility] [address] [id number] [place] [address] 4546 Oct, [facility] [address] [id number] [place] [address]- 3106 15 Oct, 2011 [facility] [address] [id number] [place] [address]- 6914 Oct, [facility] [address] [id number] [place] [address]- 2531 Oct, [facility] [address] [id number] [place] [address]- 5489 07 Oct, 2011 [facility] [address] [id number] [place] [address]- 7746 Sep, [facility] [place] [facility] [address] [id number] [place] [address]- 3332 18 Sep, 2011 [facility] [address] [id number] [place] [address]- 3401 18 Sep, 2011 [facility] [address] [id number][place] [address] 80[address] Sep, [facility] [place] [facility] [address] [id number] [place] [address]- 6330 16 Sep, 2011 [facility] [place] [facility] [address] [id number] [place] [address]- 9355 Sep, [facility] [place] [facility] [address] [id number] [place] [address]- 0369 Sep, [facility] [place] [facility] [address] [id number] [place] [address]- 4953 Aug, [facility] [place] [facility] [address] [id number] [place] [address]- 7959 Aug, [facility] [place] [facility] [address] [id number] [place] [address]- 0658 Jun, [facility] [place] [facility] [address] [id number] [place] [address]- 1073 Oct, [facility] [place] [facility] [address] [id number] [place] [address]- 9675 Oct, [facility] [place] [facility] [address] [id number] [place] [address]- 6290 Oct, [facility] [place] [facility] [address] [id number] [place] [address]- 9509 Dec, [facility] [place] [facility] [address] [id number] [place] [address]- 0437 Dec, [facility] [place] [facility] [address] [id number] [place] [address]- 6372 Dec, [facility] [place] [facility] [address] [id number] [place] [address]- 0437 Dec, [facility] [place] [facility] [address] [id number] [place] [address]- 3559 Nov, [facility] [place] [facility] [address] [id number] [place] [address]- 0940 Oct, [facility] [place] [facility] [address] [address] 17 Oct, 2009 [facility] [address] [address] Oct, [facility] [address], [place] [address] Oct, [facility] [id number] [place] [address]- [address] Sep, [facility] [address], [place] [address]- 5[address] Sep, [facility] [id number] [place] [address]- 6198 Aug, [facility] [id number] [place] [address]- 3747 Aug, [facility] [id number] [place] [address]- 6354 Aug, [facility] [address], [place] [address]- 1317 Aug, [facility] [address], [place] [address]- [address] Aug, [facility] [address], [place] [address] Jun, IMMUNIZATIONS No Known Immunizations SOCIAL HISTORY Never Assessed REASON FOR VISIT chip 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, Has been out of meds for one month PLAN OF CARE Activity Details Follow Up 4 Weeks Reason: VITAL SIGNS Height 68 in 2017-08-05 Weight 258.3 lbs 2017-08-05 Heart Rate 96 bpm 2017-08-05 Respiratory Rate 20 2017-08-05 BMI 39.27 kg/m2 2017-08-05 Blood pressure systolic 138 mmHg 2017-08-05 Blood pressure diastolic 90 mmHg 2017-08-05 MEDICATIONS Medication Instructions Dosage Frequency Start Date End Date Duration Status Tizanidine HCl 4 MG Orally Three times a day 1 tablet as needed 8h 30 Active Viibryd 20 MG Orally Once a day 0.5 tablet every day for one week then take 1 tablet every day 24h 30 days Active HydrOXYzine HCl 10 MG Orally twice a day as needed for anxiety as directed Aug, 30 days Active RESULTS No Results PROCEDURES No Known procedures INSTRUCTIONS MEDICATIONS ADMINISTERED No Known Medications MEDICAL (GENERAL) HISTORY Type Description Date Medical History Tobacco abuse Surgical History tonsillectomy age 15 Surgical History cholecystectomy 2009 Surgical History colonoscopy 3 times Surgical History 4 natural births Hospitalization History Hospitalization for surgery only
--- OUTSIDE RECORDS SUMMARY | 2018-08-17 18:13 | XMS REPORT ---
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 Name Role Phone FABY GONZALEZ Unavailable PROBLEMS Type Condition ICD9-CM Code ISO80-OQ Code Onset Dates Condition Status SNOMED Code Problem Major depressive disorder, recurrent episode, moderate F33.1 Active 010593210 Problem History of methamphetamine abuse Z87.898 Active 269465674 Problem Generalized anxiety disorder F41.1 Active 59713553 Problem Cervical high risk HPV (human papillomavirus) test positive R87.810 Active 773725760 Problem Atyp squam cell of undet signfc cyto smr crvx (ASC-US) R87.610 Active 079270986 Problem BMI 39.0-39.9,adult Z68.39 Active 004669260 Problem Recurrent major depressive disorder, in partial remission F33.41 Active 66701507 Problem Irritable bowel syndrome with diarrhea K58.0 Active 769296345 Problem Other chronic pain G89.29 Active 89333502 Problem Anxiety F41.9 Active 70626573 Problem Alkaline phosphatase elevation R74.8 Active 861403339 ALLERGIES No Information ENCOUNTERS Encounter Location Date Diagnosis [place] [id number] [place] [address] 56453- 4633 March, [facility] [id number] [place] [address] 45633- 7878 Jan, Encounter for Depo-Provera contraception Z30.42 [facility] [id number] [place] [address] 86217- 8992 Jan, Generalized anxiety disorder F41.1 and Major depressive disorder, recurrent episode, moderate F33.1 [place] [id number] [place] [address] 18452- 8072 Dec, Anxiety F41.9 and Recurrent major depressive disorder, in partial remission F33.41 [facility] [id number] [place] [address] 91527- 0534 Nov, [place] [id number] [place] [address] 33487- 5214 Nov, Other chronic pain G89.29 ; Encounter for surveillance of injectable contraceptive Z30.42 ; BMI 39.0-39.9,adult Z68.39 and Encounter for Depo-Provera contraception Z30.42 [place] [id number] [place] [address] 93151- 8727 Sep, Anxiety F41.9 and Recurrent major depressive disorder, in partial remission F33.41 [place] [id number] [place] [address] 23479- 0982 Aug, Generalized anxiety disorder F41.1 and Major depressive disorder, recurrent episode, moderate F33.1 [place] [id number] [place] [address] 93628- 0720 Aug, [place] [id number] [place] [address] 81405- 6474 Aug, Anxiety F41.9 and Major depressive disorder, recurrent episode, moderate F33.1 [place] [id number] [place] [address] 76001- 5851 25 Jul, 2017 Encounter for immunization Z23 [place] [id number] [place] [address] 66296- 1439 19 Jul, 2017 [place] [id number] [place] [address] 22317- 4015 19 Jul, 2017 [place] [id number] [place] [address] 33151- 4730 14 Jul, 2017 Alkaline phosphatase elevation R74.8 [place] [address] [place] [address] 93769- 2651 13 Jul, 2017 Encounter for annual physical exam Z00.00 [place] [id number] [address]- 1564 13 Jul, 2017 [facility] [address] [place] [address] 27260- 7236 12 Jul, 2017 Routine gynecological examination Z01.419 ; Dysuria R30.0 and Screening breast examination Z12.31 [facility] [address] [place] [address] 72934- 0976 12 Jul, 2017 Generalized anxiety disorder F41.1 and Major depressive disorder, recurrent episode, moderate F33.1 [facility] [id number] [place] [address] 71047- 4195 08 Jul, 2017 [facility] [id number] [place] [address] 82866- 4227 Jun, Generalized anxiety disorder F41.1 and Major depressive disorder, recurrent episode, moderate F33.1 [place] [id number] [place] [address] 70528- 5603 Jun, Other chronic pain G89.29 [facility] [id number] [place] [address] [id number] May, Dental caries K02.9 [place] [id number] [place] [address] 04258- 5998 10 May, 2017 Generalized anxiety disorder F41.1 and Major depressive disorder, recurrent episode, moderate F33.1 [facility] [id number] [place] [address] [id number] [phone] May, 2017 Dental examination Z01.20 [facility] [address] [address]- 7626 March, [facility] [id number] [place] [address] 03157- 3774 March, Generalized anxiety disorder F41.1 and Major depressive disorder, recurrent episode, moderate F33.1 [facility] [address] [address]- 6746 March, Encounter for annual physical exam Z00.00 and Other chronic pain G89.29 [facility] [address] [place] [address] 34949- 1563 Jan, Generalized anxiety disorder F41.1 and Major depressive disorder, recurrent episode, moderate F33.1 [facility] [address] [place] [address] 73609- 7629 Jan, [facility] [id number] [place] [address] 89092- 1013 Dec, Generalized anxiety disorder F41.1 and Major depressive disorder, recurrent episode, moderate F33.1 [place] [id number] [place] [address] 62214- 5377 Dec, Generalized anxiety disorder F41.1 and Major depressive disorder, recurrent episode, moderate F33.1 [place] [id number] [place] [address] 40700- 7283 Dec, [facility] [id number] [place] [address] 99201- 6471 Dec, Generalized anxiety disorder F41.1 and Major depressive disorder, recurrent episode, moderate F33.1 [place] [id number] [place] [address] 66246- 3864 15 Dec, 2016 Diarrhea, unspecified type R19.7 ; Irritable bowel syndrome with diarrhea K58.0 and Alkaline phosphatase elevation R74.8 [place] [address] [place] [address] 93210- 4082 Dec, Diarrhea, unspecified type R19.7 and Alkaline phosphatase elevation R74.8 [place] [address] [place] [address] 04122- 9957 Dec, Generalized anxiety disorder F41.1 and Major depressive disorder, recurrent episode, moderate F33.1 [facility] [address] [address]- 5260 Dec, Low back pain M54.5 [facility] [id number] [place] [address] 11027- 4659 Dec, Generalized anxiety disorder F41.1 and Major depressive disorder, recurrent episode, moderate F33.1 [place] [id number] [place] [address] 06577- 6041 Dec, Irritable bowel syndrome with diarrhea K58.0 and Diarrhea, unspecified type R19.7 [place] [address] 35222- 7077 Dec, [place] [address] 03278- 1164 Dec, Generalized anxiety disorder F41.1 and Major depressive disorder, recurrent episode, moderate F33.1 [facility] [id number] [place] [address] 44400 -5975 Nov, Cough R05 ; Viral illness B34.9 and Chronic diarrhea K52.9 [place] [id number] [place] [address] 85225- 9414 Nov, Generalized anxiety disorder F41.1 and Major depressive disorder, recurrent episode, moderate F33.1 [place] [id number] [place] [address] 18506- 7688 Nov, Encounter for Depo-Provera contraception Z30.42 [place] [id number] [place] [address] 13040- 0628 Nov, Generalized anxiety disorder F41.1 and Major depressive disorder, recurrent episode, moderate F33.1 [place] [id number] [place] [address] 64511- 5687 Nov, Low back pain M54.5 [place] [address] 29392- 5257 Oct, Generalized anxiety disorder F41.1 and Major depressive disorder, recurrent episode, moderate F33.1 [place] [id number] [place] [address] 66814- 3988 Sep, Low back pain M54.5 and Other chronic pain G89.29 [facility] [address] [place] [address] 84624- 4739 16 Sep, 2016 Generalized anxiety disorder F41.1 and Major depressive disorder, recurrent episode, moderate F33.1 [facility] [id number] [place] [address] 09781- 5948 Sep, Encounter for Depo-Provera contraception Z30.42 [facility] [id number] [place] [address] 77874- 5363 Jul, [facility] [id number] [place] [address] 60534- 0735 Jul, [facility] [id number] [place] [address] 71365- 3495 Jul, Encounter for immunization Z23 [facility] [id number] [place] [address] 64168- 6961 Jun, Encounter for Depo-Provera contraception Z30.42 [facility] [id number] [place] [address] 12252- 1833 Jun, Generalized anxiety disorder F41.1 and Major depressive disorder, recurrent episode, moderate F33.1 [facility] [address] [place] [address] 40129- 5523 May, Generalized anxiety disorder F41.1 and Major depressive disorder, recurrent episode, moderate F33.1 [facility] [id number] [place] [address] 40286- 4426 Apr, Generalized anxiety disorder F41.1 and Major depressive disorder, recurrent episode, moderate F33.1 [place] [id number] [place] [address] 70966- 7693 March, Encounter for Depo-Provera contraception Z30.42 [facility] [address] [place] [address] 31867- 2502 March, Generalized anxiety disorder F41.1 and Major depressive disorder, recurrent episode, moderate F33.1 [place] [address] [place] [address] 10191- 5896 Jan, Generalized anxiety disorder F41.1 and Major depressive disorder, recurrent episode, moderate F33.1 [place] [id number] [place] [address] 83863- 3286 Jan, [facility] [id number] [place] [address] 38057 -3126 Jan, Oral infection K12.2 [place] [id number] [place] [address] 24720- 2219 Jan, Tobacco abuse Z72.0 and Hypokalemia E87.6 [place] [id number] [place] [address] 96046- 8522 Jan, [place] [address] 97012- 4483 Dec, Screening, lipid Z13.220 and Hypokalemia E87.6 [place] [id number] [place] [address] 05851- 1477 Dec, Screening, lipid Z13.220 ; Screening for diabetes mellitus Z13.1 and Tobacco abuse Z72.0 [place] [id number] [place] [address] 45051- 9125 Dec, Generalized anxiety disorder F41.1 and Major depressive disorder, recurrent episode, moderate F33.1 [place] [id number] [place] [address] 59081- 8220 03 Dec, 2015 Routine follow-up Z39.2 ; Encounter for Depo- Provera contraception Z30.42 ; Atyp squam cell of undet signfc cyto smr crvx ( ASC-US) R87.610 and Cervical high risk human papillomavirus (HPV) DNA test positive R87.810 [place] [address] [place] [address] 78178- 5680 Dec, Generalized anxiety disorder F41.1 and Major depressive disorder, recurrent episode, moderate F33.1 [place] [address] [place] [address] 12104- 5065 Nov, Unspecified high-risk O09.90 and 39 weeks gestation of Z3A.39 [place] [id number] [place] [address] 26539- 8885 Nov, Unspecified high-risk O09.90 and 38 weeks gestation of Z3A.38 [place] [address] 96061- 5952 Nov, Unspecified high-risk O09.90 ; Dental infection K04.7 and 37 weeks gestation of Z3A.37 [place] [id number] [place] [address] 87078- 7530 Oct, screening for streptococcus B Z36 ; 36 weeks gestation of Z3A.36 and Breech presentation, not applicable or unspecified fetus O32.1XX0 [place] [address] 17913- 0830 Oct, Unspecified high-risk O09.90 and 34 weeks gestation of Z3A.34 [place] [id number] [place] [address] 67489- 9194 Oct, 32 weeks gestation of Z3A.32 and Unspecified high- risk O09.90 [place] [id number] [place] [address] 26124- 0793 Sep, Unspecified high-risk O09.90 ; Encounter for immunization Z23 and 30 weeks gestation of Z3A.30 [place] [id number] [place] [address] 89424- 8579 Sep, Generalized anxiety disorder F41.1 and Major depressive disorder, recurrent episode, moderate F33.1 [place] [id number] [place] [address] 33027- 1658 Aug, Unspecified high-risk O09.90 [place] [id number] [place] [address] 11239- 8066 Aug, Unspecified high-risk O09.90 [place] [address] 33535- 9707 Aug, Dental infection K04.7 [place] [address] 74936- 2807 Aug, Dysuria R30.0 [place] [address] 13823- 1421 Aug, Dysuria R30.0 [place] [address] 47056- 8089 Jul, Influenza vaccine administered V04.81 [place] [address] 58220- 5796 Jul, Unspecified high-risk V23.9 [place] [address] 56365- 4655 Jul, Unspecified high-risk V23.9 and ASCUS with positive high risk HPV 796.9 [place] [address] 75848- 6168 Jul, [place] [id number] [place] [address] 89451- 8926 Jun, [place] [address] 37346- 8532 Jun, Unspecified high-risk V23.9 ; Pap test, as part of routine gynecological examination V76.2 and Screen for STD (sexually transmitted disease) V74.5 [place] [id number] [place] [address] 37110- 7288 Jun, test positive V72.42 ; Unspecified high-risk V23.9 ; UTI in 646.60 and Vomiting 643.90 [place] [address] 77720- 2546 Jun, [facility] [address] [id number] [place] [address]- 0959 Jun, [facility] [place] [facility] [address] [id number] [place] [address]- 8566 Jun, [facility] [place] [facility] [address] [facility] [id number] [place] [address]- 8646 May, [facility] [place] [facility] [address] [id number] [place] [address]- 6495 Apr, [facility] [address] [facility] [id number] [place] [address]- 0073 Apr, Absence of menstruation 626.0 [facility] [address] [facility] [id number] [place] [address]- 0922 Jan, [facility] [address] [facility] [id number] [place] [address]- 6034 Jan, [facility] [place] [facility] [address] [facility] [id number] [place] [address]- 6772 Dec, [facility] [place] [facility] [address] [facility] [id number] [place] [address]- 2449 Dec, [facility] [place] [facility] [address] [facility] [id number] [place] [address]- 0745 Dec, [facility] [place] [facility] [address] [facility] [id number] [place] [address]- 8070 Dec, [facility] [place] [facility] [address] [facility] [id number] [place] [address]- 9794 Nov, [facility] [place] [facility] [address] [id number] [place] [address]- 9877 Nov, [facility] [place] [facility] [address] [facility] [id number] [place] [address]- 3991 Nov, [facility] [place] [facility] [address] [facility] [id number] [place] [address]- 4988 Nov, [facility] [place] [facility] [address] [id number] [place] [address]- 4892 Nov, [facility] [place] [facility] [address] [id number] [place] [address]- 3308 Nov, [facility] [place] [facility] [address] [id number] [place] [address]- 4770 Nov, [facility] [place] [facility] [address] [id number] [place] [address]- 8089 Nov, [facility] [place] [facility] [address] [id number] [place] [address]- 5673 Oct, [facility] [place] [facility] [address] [id number] [place] [address]- 1581 Oct, [facility] [place] [facility] [address] [id number] [place] [address]- 8635 Oct, [facility] [place] [facility] [address] [id number] [place] [address]- 2025 Oct, [facility] [place] [facility] [address] [id number] [place] [address]- 1197 Sep, [facility] [place] [facility] [address] [id number] [place] [address]- 1282 Sep, [facility] [place] [facility] [address] [id number] [place] [address]- 3650 Jul, [facility] [place] [facility] [address] [id number] [place] [address]- 2658 Jul, [facility] [place] [facility] [address] [id number] [place] [address]- 9801 Apr, [facility] [place] [facility] [address] [id number] [place] [address]- 2764 Apr, [facility] [place] [facility] [address] [id number] [place] [address]- 7368 March, [facility] [place] [facility] [address] [id number] [place] [address]- 6445 March, [facility] [address] [id number] [place] [address]- 0904 March, [facility] [place] [facility] [address] [id number] [place] [address]- 3600 March, [facility] [place] [facility] [address] [id number] [place] [address]- 2974 Nov, [facility] [place] [facility] [address] [id number] [place] [address]- 4853 Nov, [facility] [place] [facility] [address] [id number] [place] [address]- 0476 Nov, [facility] [place] [facility] [address] [id number] [place] [address]- 1621 Nov, [facility] [place] [facility] [address] [id number] [place] [address]- 2285 Nov, [facility] [place] [facility] [address] [id number] [place] [address]- 0718 Nov, [facility] [place] [facility] [address] [id number] [place] [address]- 5614 Nov, [facility] [place] [facility] [address] [id number] [place] [address]- 7112 Nov, [facility] [place] [facility] [address] [id number] [place] [address]- 1251 Nov, [facility] [place] [facility] [address] [id number] [place] [address]- 8344 Nov, [facility] [place] [facility] [address] [id number] [place] [address]- 1246 Nov, [facility] [place] [facility] [address] [id number] [place] [address]- 5515 Oct, [facility] [place] [facility] [address] [id number] [place] [address]- 7861 Oct, [facility] [place] [facility] [address] [id number] [place] [address]- 7070 16 Oct, 2013 [facility] [address] [id number] [place] [address]- 3394 13 Oct, 2013 [facility] [place] [facility] [address] [id number] [place] [address]- 1516 13 Oct, 2013 [facility] [place] [facility] [address] [id number] [place] [address]- 2191 12 Oct, 2013 [facility] [place] [facility] [address] [id number] [place] [address]- 2318 11 Oct, 2013 [facility] [place] [facility] [address] [id number] [place] [address]- 2923 Oct, [facility] [place] [facility] [address] [id number] [place] [address]- 0181 Oct, [facility] [place] [facility] [address] [id number] [place] [address]- 7393 Oct, [facility] [address] [id number] [place] [address]- 1445 Oct, [facility] [place] [facility] [address] [id number] [place] [address]- 1659 Oct, [facility] [place] [facility] [address] [id number] [place] [address]- 6441 Sep, [facility] [place] [facility] [address] [id number] [place] [address]- 0179 Sep, [facility] [place] [facility] [address] [id number] [place] [address]- 4537 Sep, [facility] [place] [facility] [address] [id number] [place] [address]- 2455 Sep, [facility] [place] [facility] [address] [id number] [place] [address]- 4981 Aug, [facility] [place] [facility] [address] [id number] [place] [address]- 4901 Aug, [facility] [address] [id number] [place] [address]- 7146 Aug, [facility] [place] [facility] [address] [id number] [place] [address]- 7171 Aug, [facility] [place] [facility] [address] [id number] [place] [address]- 6142 Jun, [facility] [place] [facility] [address] [id number] [place] [address]- 8461 Jun, [facility] [address] [id number] [place] [address]- 4479 Apr, [facility] [place] [facility] [address] [id number] [place] [address] March, [facility] [place] [facility] [address] [id number] [place] [address] 17 Jan, 2013 [facility] [place] [facility] [address] [id number], [place] [address] 16 Jan, 2013 [facility] [place] [facility] [address] [id number] [place] [address] 15 Jan, 2013 [facility] [place] [facility] [address] [id number], [place] [address] Jan, [facility] [place] [facility] [address] [id number], [place] [address] Dec, [facility] [place] [facility] [address] [id number], [place] [address] Dec, [facility] [place] [facility] [address] [id number] [place] [address] Dec, [facility] [place] [facility] [address] [id number], [place] [address] Dec, [facility] [place] [facility] [address] [id number] [place] [address] Oct, [facility] [place] [facility] [address] [id number] [place] [address] Oct, [facility] [place] [facility] [address] [id number] [place] [address] Oct, [facility] [place] [facility] [address] [id number] [place] [address] Oct, [facility] [place] [facility] [address] [id number] [place] [address] Oct, [facility] [place] [facility] [address] [id number] [place] [address] Oct, [facility] [place] [facility] [address] [id number] [place] [address] Sep, [facility] [place] [facility] [address] [id number] [place] [address] Sep, [facility] [place] [facility] [address] [facility] [id number] [place] [address] Aug, [facility] [place] [facility] [address] [id number] [place] [address] Aug, [facility] [place] [facility] [address] [id number] [place] [address] Aug, [facility] [place] [facility] [address] [facility] [id number] [place] [address] Jul, [facility] [place] [facility] [address] [id number] [place] [address] Jul, [facility] [place] [facility] [address] [id number] [place] [address] Jul, [facility] [place] [facility] [address] [id number] [place] [address] Jul, [facility] [place] [facility] [address] [facility] [id number] [place] [address] Jun, [facility] [place] [facility] [address] [facility] [id number] [place] [address] Jun, [facility] [place] [facility] [address] [id number] [place] [address] Jun, [facility] [place] [facility] [address] [id number] [place] [address] Jun, [facility] [place] [facility] [address] [id number] [place] [address] Jun, [facility] [place] [facility] [address] [address] [id number] [place] [address] May, [facility] [address] [id number] [place] [address] May, [facility] [place] [facility] [address] [id number] [place] [address] Apr, [facility] [address] [id number] [place] [address] Apr, [facility] [address] [id number] [place] [address] Apr, [facility] [place] [facility] [address] [id number] [place] [address] March, [facility] [place] [facility] [address] [id number] [place] [address] March, [facility] [place] [facility] [address] [id number] [place] [address] March, [facility] [place] [facility] [address] [id number] [place] [address] Jan, [facility] [place] [facility] [address] [id number] [place] [address] Dec, [facility] [place] [facility] [address] [id number] [place] [address] Dec, [facility] [place] [facility] [address] [id number] [place] [address] Dec, [facility] [place] [facility] [address] [id number] [place] [address] Dec, [facility] [address] [id number] [place] [address] Dec, [facility] [place] [facility] [address] [id number] [place] [address] 16 Dec, 2011 [facility] [address] [id number] [place] [address] Dec, [facility] [place] [facility] [address] [id number] [place] [address] 29 Dec, 2011 [facility] [place] [facility] [address] [id number] [place] [address] 28 Dec, 2011 [facility] [place] [facility] [address] [id number] [place] [address] 21 Dec, 2011 [facility] [address] [id number] [place] [address] 13 Dec, 2011 [facility] [place] [facility] [address] [id number] [place] [address] Dec, [facility] [place] [facility] [address] [id number] [place] [address] 10 Dec, 2011 [facility] [place] [facility] [address] [facility] [id number] [place] [address] Nov, [facility] [place] [facility] [address] [id number] [place] [address] 24 Nov, 2011 [facility] [place] [facility] [address] [id number] [place] [address] Nov, [facility] [place] [facility] [address] [id number] [place] [address] Nov, [facility] [place] [facility] [address] [id number] [place] [address] 1766 17 Nov, 2011 [facility] [place] [facility] [address] [facility] [id number] [place] [address]66 16 Nov, 2011 [facility] [place] [facility] [address] [id number] [place] [address] Nov, [facility] [place] [facility] [address] [id number] [place] [address] Nov, [facility] [place] [facility] [address] [id number] [place] [address] Oct, [facility] [place] [facility] [address] [id number] [place] [address] Oct, [facility] [place] [facility] [address] [id number] [place] [address] 15 Oct, 2011 [facility] [place] [facility] [address] [id number] [place] [address] 15 Oct, 2011 [facility] [place] [facility] [address] [id number] [place] [address] Oct, [facility] [place] [facility] [address] [id number] [place] [address] Oct, [facility] [place] [facility] [address] [id number] [place] [address] Oct, [facility] [place] [facility] [address] [id number] [place] [address]26 23 Sep, 2011 [facility] [place] [facility] [address] [id number] [place] [address] 18 Sep, 2011 [facility] [place] [facility] [address] [id number] [place] [address]- [address] 18 Sep, 2011 [facility] [place] [facility] [address] [id number] [place] [address]67 16 Sep, 2011 [facility] [place] [facility] [address] [id number] [place] [address] 16 Sep, 2011 [facility] [place] [facility] [address] [id number] [place] [address] 08 Sep, 2011 [facility] [place] [facility] [address] [id number] [place] [address] Sep, [facility] [place] [facility] [address] [id number] [place] [address]- [address]25 Aug, [facility] [place] [facility] [address] [id number] [place] [address] Aug, [facility] [place] [facility] [address] [id number] [place] [address] Jun, [facility] [place] [facility] [address] [id number] [place] [address] Oct, [facility] [place] [facility] [address] [id number] [place] [address] Oct, [facility] [place] [facility] [address] [id number] [place] [address] [address] 08 Oct, 2010 [facility] [place] [facility] [address] [id number] [place] [address]- [address]647 16 Dec, 2009 [facility] [place] [facility] [address] [id number] [place] [address]- 30[address] Dec, [facility] [place] [facility] [address] [id number] [place] [address]- 1168 18 Dec, 2009 [facility] [place] [facility] [address] [id number] [place] [address]- 8583 Dec, [facility] [place] [facility] [address] [id number] [place] [address]290 Nov, [facility] [place] [facility] [address] [id number] [place] [address]- 4577 29 Oct, 2009 [facility] [place] [facility] [address] [id number] [place] [address]- [address]507 17 Oct, 2009 [facility] [place] [facility] [address] [id number] [place] [address] 15 Oct, 2009 [facility] [place] [facility] [address] [id number] [place] [address] 15 Oct, 2009 [facility] [place] [facility] [id number] [address] Sep, [facility] [id number] [place] [address] Sep, [facility] [id number], [place] [address] Aug, [facility] [id number], [place] [address] Aug, [facility] [id number], [place] [address] Aug, [facility] [id number] [place] [address] Aug, [facility] [id number], [place] [address] Aug, [facility] [id number] [address] Jun, IMMUNIZATIONS No Known Immunizations SOCIAL HISTORY Never Assessed REASON FOR VISIT Endocronology referral PLAN OF CARE VITAL SIGNS MEDICATIONS Unknown Medications RESULTS No Results PROCEDURES No Known procedures INSTRUCTIONS MEDICATIONS ADMINISTERED No Known Medications MEDICAL (GENERAL) HISTORY Type Description Date Medical History Tobacco abuse Surgical History tonsillectomy age 15 Surgical History cholecystectomy 2009 Surgical History colonoscopy 3 times Surgical History 4 natural births Hospitalization History Hospitalization for surgery only
--- OUTSIDE RECORDS SUMMARY | 2018-08-17 18:14 | XMS REPORT ---
Author Author DERICK IBRAHIM 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 Name Role Phone DERICK IBRAHIM Unavailable PROBLEMS Type Condition ICD9-CM Code [id number] Code Onset Dates Condition Status SNOMED Code Problem Major depressive disorder, recurrent episode, moderate F33.1 Active 139989323 Problem History of methamphetamine abuse Z87.898 Active 274268766 Problem Generalized anxiety disorder F41.1 Active 36030831 Problem Cervical high risk HPV (human papillomavirus) test positive R87.810 Active 396445447 Problem Atyp squam cell of undet signfc cyto smr crvx (ASC-US) R87.610 Active 978133636 Problem BMI 39.0-39.9,adult Z68.39 Active 267426721 Problem Recurrent major depressive disorder, in partial remission F33.41 Active 52804726 Problem Irritable bowel syndrome with diarrhea K58.0 Active 697773092 Problem Other chronic pain G89.29 Active 32853109 Problem Anxiety F41.9 Active 64071533 Problem Alkaline phosphatase elevation R74.8 Active [id number] ALLERGIES No Information ENCOUNTERS Encounter Location Date Diagnosis [place] [id number] [place] [address] 85603- 2770 March, [place] [id number] [place] [id number] [place] [address] 89408- 9416 Jan, Encounter for Depo-Provera contraception Z30.42 [place] [address] [place] [id number] [place] [address] 25366- 5377 Jan, Generalized anxiety disorder F41.1 and Major depressive disorder, recurrent episode, moderate F33.1 [place] [id number] [place] [address] 74967- 1748 28 Feb, 2018 Anxiety F41.9 and Recurrent major depressive disorder, in partial remission F33.41 [facility] [address] [place] [address] [id number] [place] [address] 58002- 7086 Nov, [facility] [address] [place] [address] [id number] [place] [address] 14134- 6529 Nov, Other chronic pain G89.29 ; Encounter for surveillance of injectable contraceptive Z30.42 ; BMI 39.0-39.9,adult Z68.39 and Encounter for Depo-Provera contraception Z30.42 [facility] [address] [place] [id number] [place] [address] 13979- 1648 Sep, Anxiety F41.9 and Recurrent major depressive disorder, in partial remission F33.41 [place] [address] [place] [id number] [place] [address] 04450- 8463 Aug, Generalized anxiety disorder F41.1 and Major depressive disorder, recurrent episode, moderate F33.1 [place] [address] [place] [id number] [place] [address] 16320- 6923 Aug, [place] [address] [place] [id number] [place] [address] 04407- 7629 Aug, Anxiety F41.9 and Major depressive disorder, recurrent episode, moderate F33.1 [place] [id number] [place] [address] 91354- 7164 25 Jul, 2017 Encounter for immunization Z23 [place] [address] [place] [id number] [place] [address] 45430- 5170 19 Jul, 2017 [place] [address] [place] [id number] [place] [address] 24221- 4152 19 Jul, 2017 [place] [address] [place] [id number] [place] [address] 47228- 7685 14 Jul, 2017 Alkaline phosphatase elevation R74.8 [place] [address] [place] [id number] [place] [address] 23994- 2539 13 Jul, 2017 Encounter for annual physical exam Z00.00 [place] [address] [place] [id number] [address]- 7557 13 Jul, 2017 [facility] [id number] [place] [address] 03711- 8879 12 Jul, 2017 Routine gynecological examination Z01.419 ; Dysuria R30.0 and Screening breast examination Z12.31 [facility] [address] [place] [id number] [place] [address] 65864- 4655 12 Jul, 2017 Generalized anxiety disorder F41.1 and Major depressive disorder, recurrent episode, moderate F33.1 [place] [address] [place] [id number] [place] [address] 42926- 7911 08 Jul, 2017 [place] [address] [place] [id number] [place] [address] 68374- 1935 Jun, Generalized anxiety disorder F41.1 and Major depressive disorder, recurrent episode, moderate F33.1 [place] [address] [place] [id number] [place] [address] 43656- 6188 Jun, Other chronic pain G89.29 [facility] [id number] [place] [address] [id number] May, Dental caries K02.9 [place] [address] [place] [id number] [place] [address] 06421- 0863 May, Generalized anxiety disorder F41.1 and Major depressive disorder, recurrent episode, moderate F33.1 [facility] [address] [place] [id number] [place] [address] [id number] May, 2017 Dental examination Z01.20 [facility] [id number] [place] [address] 15749- 8887 March, [facility] [address] [place] [id number] [place] [address] 63739- 9897 March, Generalized anxiety disorder F41.1 and Major depressive disorder, recurrent episode, moderate F33.1 [facility] [id number] [place] [address] 67269- 3205 March, Encounter for annual physical exam Z00.00 and Other chronic pain G89.29 [facility] [address] [address]- 3252 Jan, Generalized anxiety disorder F41.1 and Major depressive disorder, recurrent episode, moderate F33.1 [facility] [address] [address]- 2330 Jan, [facility] [id number] [place] [address] 32859- 3921 Dec, Generalized anxiety disorder F41.1 and Major depressive disorder, recurrent episode, moderate F33.1 [place] [address] [place] [address] [id number] [place] [address] 40327- 2717 Dec, Generalized anxiety disorder F41.1 and Major depressive disorder, recurrent episode, moderate F33.1 [place] [address] [place] [id number] [place] [address] 29014- 2875 Dec, [facility] [address] [place] [address] [id number] [place] [address] 23300- 6976 Dec, Generalized anxiety disorder F41.1 and Major depressive disorder, recurrent episode, moderate F33.1 [place] [address] [place] [id number] [place] [address] 52363- 9484 15 Dec, 2016 Diarrhea, unspecified type R19.7 ; Irritable bowel syndrome with diarrhea K58.0 and Alkaline phosphatase elevation R74.8 [place] [address] [place] [address] 40070- 8497 Dec, Diarrhea, unspecified type R19.7 and Alkaline phosphatase elevation R74.8 [facility] [address] [place] [address] 91267- 6258 Dec, Generalized anxiety disorder F41.1 and Major depressive disorder, recurrent episode, moderate F33.1 [facility] [address] [address]- 1969 Dec, Low back pain M54.5 [facility] [address] [place] [id number] [place] [address] 20072- 7517 Dec, Generalized anxiety disorder F41.1 and Major depressive disorder, recurrent episode, moderate F33.1 [place] [address] [place] [address] [id number] [place] [address] 62241- 1285 Dec, Irritable bowel syndrome with diarrhea K58.0 and Diarrhea, unspecified type R19.7 [place] [address] 95989- 9461 Dec, [place] [address] 63253- 1254 Dec, Generalized anxiety disorder F41.1 and Major depressive disorder, recurrent episode, moderate F33.1 [facility] [address] [place] [address] [id number] [place] [address] 46509 -7099 Nov, Cough R05 ; Viral illness B34.9 and Chronic diarrhea K52.9 [place] [address] [place] [id number] [place] [address] 32900- 9214 Nov, Generalized anxiety disorder F41.1 and Major depressive disorder, recurrent episode, moderate F33.1 [place] [address] [place] [id number] [place] [address] 03618- 9414 Nov, Encounter for Depo-Provera contraception Z30.42 [place] [address] [place] [id number] [place] [address] 71368- 4368 Nov, Generalized anxiety disorder F41.1 and Major depressive disorder, recurrent episode, moderate F33.1 [place] [address] [place] [id number] [place] [address] 79206- 4093 Nov, Low back pain M54.5 [place] [address] 04464- 5029 Oct, Generalized anxiety disorder F41.1 and Major depressive disorder, recurrent episode, moderate F33.1 [place] [address] [place] [id number] [place] [address] 73695- 1040 Sep, Low back pain M54.5 and Other chronic pain G89.29 [facility] [address] [place] [address] 78423- 3811 Sep, Generalized anxiety disorder F41.1 and Major depressive disorder, recurrent episode, moderate F33.1 [facility] [address] [place] [id number] [place] [address] 89839- 6886 Sep, Encounter for Depo-Provera contraception Z30.42 [facility] [address] [place] [id number] [place] [address] 21153- 0004 Jul, [facility] [address] [place] [id number] [place] [address] 66796- 2247 Jul, [facility] [address] [place] [id number] [place] [address] 34749- 1388 Jul, Encounter for immunization Z23 [facility] [address] [place] [id number] [place] [address] 01084- 6733 Jun, Encounter for Depo-Provera contraception Z30.42 [facility] [address] [place] [id number] [place] [address] 03865- 4780 Jun, Generalized anxiety disorder F41.1 and Major depressive disorder, recurrent episode, moderate F33.1 [facility] [address] [place] [address] 98338- 5032 May, Generalized anxiety disorder F41.1 and Major depressive disorder, recurrent episode, moderate F33.1 [facility] [address] [place] [id number] [place] [address] 00645- 2284 Apr, Generalized anxiety disorder F41.1 and Major depressive disorder, recurrent episode, moderate F33.1 [place] [address] [place] [id number] [place] [address] 26724- 7047 March, Encounter for Depo-Provera contraception Z30.42 [facility] [address] [place] [address] 26292- 8161 March, Generalized anxiety disorder F41.1 and Major depressive disorder, recurrent episode, moderate F33.1 [place] [address] [place] [address] 21658- 2529 Jan, Generalized anxiety disorder F41.1 and Major depressive disorder, recurrent episode, moderate F33.1 [place] [address] [place] [id number] [place] [address] 69355- 5888 Jan, [facility] [address] [place] [id number] [place] [address] 91993 -9187 Jan, Oral infection K12.2 [place] [address] [place] [id number] [place] [address] 66386- 8165 Jan, Tobacco abuse Z72.0 and Hypokalemia E87.6 [place] [address] [place] [id number] [place] [address] 65393- 4674 Jan, [place] [address] 57734- 9904 Dec, Screening, lipid Z13.220 and Hypokalemia E87.6 [place] [address] [place] [id number] [place] [address] 03003- 0852 Dec, Screening, lipid Z13.220 ; Screening for diabetes mellitus Z13.1 and Tobacco abuse Z72.0 [place] [address] [place] [id number] [place] [address] 42639- 6377 Dec, Generalized anxiety disorder F41.1 and Major depressive disorder, recurrent episode, moderate F33.1 [place] [address] [place] [id number] [place] [address] 94643- 0336 03 Dec, 2015 Routine follow-up Z39.2 ; Encounter for Depo- Provera contraception Z30.42 ; Atyp squam cell of undet signfc cyto smr crvx ( ASC-US) R87.610 and Cervical high risk human papillomavirus (HPV) DNA test positive R87.810 [place] [address] [place] [address] 05469- 5481 Dec, Generalized anxiety disorder F41.1 and Major depressive disorder, recurrent episode, moderate F33.1 [place] [address] [place] [id number] [place] [address] 28894- 9155 Nov, Unspecified high-risk O09.90 and 39 weeks gestation of Z3A.39 [place] [address] [place] [id number] [place] [address] 96181- 9353 Nov, Unspecified high-risk O09.90 and 38 weeks gestation of Z3A.38 [place] [address] 09305- 1387 Nov, Unspecified high-risk O09.90 ; Dental infection K04.7 and 37 weeks gestation of Z3A.37 [place] [address] 59592- 2910 Oct, screening for streptococcus B Z36 ; 36 weeks gestation of Z3A.36 and Breech presentation, not applicable or unspecified fetus O32.1XX0 [place] [address] 14802- 1322 Oct, Unspecified high-risk O09.90 and 34 weeks gestation of Z3A.34 [place] [address] [place] [id number] [place] [address] 60010- 9913 Oct, 32 weeks gestation of Z3A.32 and Unspecified high- risk O09.90 [place] [address] [place] [id number] [place] [address] 10594- 8371 Sep, Unspecified high-risk O09.90 ; Encounter for immunization Z23 and 30 weeks gestation of Z3A.30 [place] [address] [place] [id number] [place] [address] 11610- 0935 Sep, Generalized anxiety disorder F41.1 and Major depressive disorder, recurrent episode, moderate F33.1 [place] [address] [place] [id number] [place] [address] 87561- 3157 Aug, Unspecified high-risk O09.90 [place] [address] [place] [id number] [place] [address] 55775- 7479 Aug, Unspecified high-risk O09.90 [place] [address] 67614- 6382 Aug, Dental infection K04.7 [place] [address] 88529- 7039 Aug, Dysuria R30.0 [place] [address] 76593- 2261 Aug, Dysuria R30.0 [place] [address] 37088- 0954 Jul, Influenza vaccine administered V04.81 [place] [address] [place] [id number] [place] [address] 80131- 8185 Jul, Unspecified high-risk V23.9 [place] [address] 26035- 1806 Jul, Unspecified high-risk V23.9 and ASCUS with positive high risk HPV 796.9 [place] [address] 74796- 5572 Jul, [place] [address] [place] [id number] [place] [address] 05904- 0277 Jun, [place] [address] 67834- 5173 Jun, Unspecified high-risk V23.9 ; Pap test, as part of routine gynecological examination V76.2 and Screen for STD (sexually transmitted disease) V74.5 [place] [address] [place] [id number] [place] [address] 96924- 6106 Jun, test positive V72.42 ; Unspecified high-risk V23.9 ; UTI in 646.60 and Vomiting 643.90 [place] [address] [place] [id number] [place] [address] 79564- 8046 Jun, [facility] [address] [id number] [place] [address]- 0252 Jun, [facility] [place] [facility] [address] [id number] [place] [address]- 9368 Jun, [facility] [place] [facility] [address] [facility] [id number] [place] [address]- 9705 May, [facility] [place] [facility] [address] [id number] [place] [address]- 4793 Apr, [facility] [address] [id number] [place] [address]- 1183 Apr, Absence of menstruation 626.0 [facility] [address] [id number] [place] [address]- 3832 Jan, [facility] [address] [facility] [id number] [place] [address]- 2080 Jan, [facility] [place] [facility] [address] [facility] [id number] [place] [address]- 8771 Dec, [facility] [place] [facility] [address] [facility] [id number] [place] [address]- 9691 Dec, [facility] [place] [facility] [address] [facility] [id number] [place] [address]- 8532 Dec, [facility] [place] [facility] [address] [facility] [id number] [place] [address]- 7611 Dec, [facility] [place] [facility] [address] [facility] [id number] [place] [address]- 5674 Nov, [facility] [place] [facility] [address] [id number] [place] [address]- 0185 Nov, [facility] [place] [facility] [address] [facility] [id number] [place] [address]- 1000 Nov, [facility] [place] [facility] [address] [facility] [id number] [address]- 7877 Nov, [facility] [place] [facility] [address] [id number] [place] [address]- 3070 Nov, [facility] [place] [facility] [address] [id number] [place] [address]- 7741 Nov, [facility] [place] [facility] [address] [id number] [place] [address]- 7824 Nov, [facility] [place] [facility] [address] [id number] [place] [address]- 0265 Nov, [facility] [address] [id number] [place] [address]- 3527 Oct, [facility] [place] [facility] [address] [id number] [place] [address]- 7179 Oct, [facility] [place] [facility] [address] [id number] [place] [address]- 5774 Oct, [facility] [place] [facility] [address] [id number] [place] [address]- 0301 Oct, [facility] [place] [facility] [address] [id number] [place] [address]- 0076 Sep, [facility] [place] [facility] [address] [id number] [place] [address]- 0128 Sep, [facility] [place] [facility] [address] [id number] [place] [address]- 1815 Jul, [facility] [place] [facility] [address] [id number] [place] [address]- 5312 Jul, [facility] [place] [facility] [address] [id number] [place] [address]- 4713 Apr, [facility] [place] [facility] [address] [id number] [place] [address]- 2116 Apr, [facility] [place] [facility] [address] [id number] [place] [address]- 2949 March, [facility] [place] [facility] [address] [id number] [place] [address]- 3051 March, [facility] [address] [id number] [place] [address]- 6607 March, [facility] [place] [facility] [address] [id number] [place] [address]- 0053 March, [facility] [place] [facility] [address] [id number] [place] [address]- 4080 Nov, [facility] [place] [facility] [address] [id number] [place] [address]- 0763 Nov, [facility] [place] [facility] [address] [id number] [place] [address]- 9464 Nov, [facility] [place] [facility] [address] [id number] [place] [address]- 1553 Nov, [facility] [place] [facility] [address] [id number] [place] [address]- 5340 Nov, [facility] [place] [facility] [address] [id number] [place] [address]- 1644 Nov, [facility] [place] [facility] [address] [id number] [place] [address]- 6478 Nov, [facility] [place] [facility] [address] [id number] [place] [address]- 6665 Nov, [facility] [place] [facility] [address] [id number] [place] [address]- 6022 Nov, [facility] [place] [facility] [address] [id number] [place] [address]- 3072 Nov, [facility] [place] [facility] [address] [id number] [place] [address]- 5561 Nov, [facility] [place] [facility] [address] [id number] [place] [address]- 1214 Oct, [facility] [place] [facility] [address] [id number] [place] [address]- 0235 Oct, [facility] [place] [facility] [address] [id number] [place] [address]- 2634 16 Oct, 2013 [facility] [address] [id number] [place] [address]- 7043 13 Oct, 2013 [facility] [place] [facility] [address] [id number] [place] [address]- 7856 13 Oct, 2013 [facility] [address] [id number] [place] [address]- 1396 12 Oct, 2013 [facility] [address] [id number] [place] [address]- 6461 11 Oct, 2013 [facility] [address] [id number] [place] [address]- 7773 Oct, [facility] [address] [id number] [place] [address]- 9205 Oct, [facility] [address] [id number] [place] [address]- 5636 Oct, [facility] [address] [id number] [place] [address]- 9750 Oct, [facility] [address] [id number] [place] [address]- 9197 Oct, [facility] [address] [id number] [place] [address]- 0127 Sep, [facility] [place] [facility] [address] [id number] [place] [address]- 0683 Sep, [facility] [address] [id number] [place] [address]- 1203 Sep, [facility] [place] [facility] [address] [id number] [place] [address]- 1553 Sep, [facility] [place] [facility] [address] [id number] [place] [address]- 9171 Aug, [facility] [place] [facility] [address] [id number] [place] [address] Aug, [facility] [address] [id number] [place] [address] Aug, [facility] [place] [facility] [address] [id number] [place] [address] Aug, [facility] [place] [facility] [address] [id number] [place] [address] Jun, [facility] [place] [facility] [address] [id number] [place] [address] Jun, [facility] [address] [id number] [place] [address] Apr, [facility] [place] [facility] [address] [id number] [place] [address] March, [facility] [place] [facility] [address] [id number] [place] [address] 17 Jan, 2013 [facility] [place] [facility] [address] [id number] [place] [address] 16 Jan, 2013 [facility] [place] [facility] [address] [id number] [place] [address] 15 Jan, 2013 [facility] [place] [facility] [address] [id number] [place] [address] Jan, [facility] [place] [facility] [address] [id number] [place] [address] Dec, [facility] [place] [facility] [address] [id number], [place] [address] Dec, [facility] [place] [facility] [address] [id number] [place] [address] Dec, [facility] [place] [facility] [address] [id number] [place] [address] Dec, [facility] [place] [facility] [address] [id number] [place] [address] Oct, [facility] [place] [facility] [address] [id number] [place] [address] Oct, [facility] [place] [facility] [address] [id number] [place] [address] Oct, [facility] [place] [facility] [address] [id number] [place] [address] Oct, [facility] [place] [facility] [address] [id number] [place] [address] Oct, [facility] [place] [facility] [address] [id number] [place] [address] Oct, [facility] [place] [facility] [address] [id number] [place] [address] Sep, [facility] [place] [facility] [address] [id number] [place] [address] Sep, [facility] [place] [facility] [address] [id number] [place] [address] Aug, [facility] [place] [facility] [address] [id number] [place] [address] Aug, [facility] [place] [facility] [address] [id number] [place] [address] Aug, [facility] [place] [facility] [address] [facility] [id number] [place] [address] Jul, [facility] [place] [facility] [address] [id number] [place] [address] Jul, [facility] [place] [facility] [address] [id number] [place] [address] Jul, [facility] [place] [facility] [address] [id number] [place] [address] Jul, [facility] [place] [facility] [address] [id number] [place] [address] Jun, [facility] [place] [facility] [address] [id number], [place] [address] Jun, [facility] [place] [facility] [address] [id number] [place] [address] Jun, [facility] [place] [facility] [address] [id number] [place] [address] Jun, [facility] [place] [facility] [address] [id number] [place] [address] Jun, [facility] [place] [facility] [address] [id number] [place] [address] May, [facility] [place] [facility] [address] [id number] [place] [address] May, [facility] [place] [facility] [address] [id number] [place] [address] Apr, [facility] [place] [facility] [address] [id number] [place] [address] Apr, [facility] [place] [facility] [address] [id number] [place] [address] Apr, [facility] [place] [facility] [address] [id number] [place] [address] March, [facility] [place] [facility] [address] [id number] [place] [address] March, [facility] [place] [facility] [address] [id number] [place] [address] March, [facility] [place] [facility] [address] [id number] [place] [address] Jan, [facility] [place] [facility] [address] [id number] [place] [address] Dec, [facility] [place] [facility] [address] [id number] [place] [address] Dec, [facility] [place] [facility] [address] [id number] [place] [address] Dec, [facility] [place] [facility] [address] [id number] [place] [address] Dec, [facility] [address] [id number] [place] [address] 19 Dec, 2011 [facility] [address] [id number] [place] [address] 16 Dec, 2011 [facility] [address] [facility] [id number] [place] [address] Dec, [facility] [address] [id number] [place] [address] 29 Dec, 2011 [facility] [address] [id number] [place] [address]- [address] 28 Dec, 2011 [facility] [address] [id number] [place] [address]- 18[address] 21 Dec, 2011 [facility] [address] [id number] [place] [address] 13 Dec, 2011 [facility] [place] [facility] [address] [id number] [place] [address] Dec, [facility] [address] [id number] [place] [address]- [address]36 10 Dec, 2011 [facility] [address] [id number] [place] [address] 9418 Nov, [facility] [address] [id number] [place] [address]- [address] 24 Nov, 2011 [facility] [place] [facility] [address] [id number] [place] [address] Nov, [facility] [place] [facility] [address] [id number] [place] [address] Nov, [facility] [place] [facility] [address] [id number] [place] [address] Nov, [facility] [place] [facility] [address] [facility] [id number] [place] [address]- [address]196 16 Nov, 2011 [facility] [place] [facility] [address] [id number] [place] [address]- [address]270 Nov, [facility] [place] [facility] [address] [id number] [place] [address]- 9660 Nov, [facility] [place] [facility] [address] [id number] [place] [address]246 Oct, [facility] [place] [facility] [address] [id number] [place] [address] Oct, [facility] [place] [facility] [address] [id number] [place] [address]- [address]990 15 Oct, 2011 [facility] [place] [facility] [address] [id number] [place] [address] 15 Oct, 2011 [facility] [place] [facility] [address] [id number] [place] [address] Oct, [facility] [place] [facility] [address] [id number] [place] [address]- 1434 13 Oct, 2011 [facility] [place] [facility] [address] [id number] [place] [address] 9875 07 Oct, 2011 [facility] [place] [facility] [address] [id number] [place] [address]- [address]265 23 Sep, 2011 [facility] [place] [facility] [address] [id number] [place] [address]- [address] 18 Sep, 2011 [facility] [place] [facility] [address] [id number] [place] [address]- [address]20 18 Sep, 2011 [facility] [place] [facility] [address] [id number] [place] [address] 8807 16 Sep, 2011 [facility] [place] [facility] [address] [id number] [place] [address]- 2440 16 Sep, 2011 [facility] [place] [facility] [address] [id number] [place] [address]- [address]76 08 Sep, 2011 [facility] [place] [facility] [address] [id number] [place] [address]- 4714 Sep, [facility] [address] [id number] [place] [address]- [address] Aug, [facility] [place] [facility] [address] [id number] [place] [address]- 6466 Aug, [facility] [place] [facility] [address] [facility] [id number] [place] [address]- [address]476 Jun, [facility] [place] [facility] [address] [id number] [place] [address]- 7739 Oct, [facility] [place] [facility] [address] [id number] [place] [address] Oct, [facility] [place] [facility] [address] [id number] [place] [address]- [address]326 08 Oct, 2010 [facility] [place] [facility] [address] [facility] [id number] [place] [address]- 5662 16 Dec, 2009 [facility] [place] [facility] [address] [id number] [place] [address]- [address]20 Dec, [facility] [place] [facility] [address] [id number] [place] [address]- 3008 18 Dec, 2009 [facility] [place] [facility] [address] [facility] [id number] [place] [address]- [address]484 Dec, [facility] [place] [facility] [address] [id number], [place] [address] Nov, [facility] [place] [facility] [address] [id number], [place] [address] 29 Oct, 2009 [facility] [place] [facility] [address] [id number] [place] [address]- 8476 17 Oct, 2009 [facility] [place] [facility] [address] [facility] [id number] [place] [address]- 4545 15 Oct, 2009 [facility] [place] [facility] [address] [facility] [id number] [place] [address]- 6887 15 Oct, 2009 [facility] [place] [facility] [address] [id number], [place] [address] Sep, [facility] [id number], [place] [address] Sep, [facility] [id number] [id number] Aug, [facility] [id number], [place] [address] Aug, [facility] [id number], [place] [address] Aug, [facility] [id number] [address] [address] Aug, [facility] [id number], [place] [address] 69[address] Aug, [facility] [id number], [place] [address] Jun, IMMUNIZATIONS No Known Immunizations SOCIAL HISTORY Never Assessed REASON FOR VISIT Pap Results history update PLAN OF CARE VITAL SIGNS MEDICATIONS Unknown Medications RESULTS No Results PROCEDURES No Known procedures INSTRUCTIONS MEDICATIONS ADMINISTERED No Known Medications MEDICAL (GENERAL) HISTORY Type Description Date Medical History Tobacco abuse Surgical History tonsillectomy age 15 Surgical History cholecystectomy 2009 Surgical History colonoscopy 3 times Surgical History 4 natural births Hospitalization History Hospitalization for surgery only
--- OUTSIDE RECORDS SUMMARY | 2018-08-17 18:14 | XMS REPORT ---
Author Author SUZANNE BURNHAM [facility] Address [address] [place] [address] Care Team Providers Care Canvas Cutter Machine Name Role Phone SUZANNE BURNHAM Unavailable PROBLEMS Type Condition ICD9-CM Code PEW80-OB Code Onset Dates Condition Status SNOMED Code Problem Major depressive disorder, recurrent episode, moderate F33.1 Active 268385495 Problem History of methamphetamine abuse Z87.898 Active 726563730 Problem Generalized anxiety disorder F41.1 Active 53082037 Problem Cervical high risk HPV (human papillomavirus) test positive R87.810 Active 113429986 Problem Atyp squam cell of undet signfc cyto smr crvx (ASC-US) R87.610 Active 834199621 Problem BMI 39.0-39.9,adult Z68.39 Active 055763119 Problem Recurrent major depressive disorder, in partial remission F33.41 Active 72500227 Problem Irritable bowel syndrome with diarrhea K58.0 Active 627995263 Problem Other chronic pain G89.29 Active 47728193 Problem Anxiety F41.9 Active 05328906 Problem Alkaline phosphatase elevation R74.8 Active 331637385 ALLERGIES No Information ENCOUNTERS Encounter Location Date Diagnosis [place] [id number] [place] [address] 69332- 0020 March, [facility] [id number] [place] [address] 67553- 8304 Jan, Encounter for Depo-Provera contraception Z30.42 [facility] [id number] [place] [address] 06312- 8164 Jan, Generalized anxiety disorder F41.1 and Major depressive disorder, recurrent episode, moderate F33.1 [place] [id number] [place] [address] 87781- 2295 Dec, Anxiety F41.9 and Recurrent major depressive disorder, in partial remission F33.41 [facility] [id number] [place] [address] 76690- 5525 Nov, [place] [id number] [place] [address] 83535- 7781 Nov, Other chronic pain G89.29 ; Encounter for surveillance of injectable contraceptive Z30.42 ; BMI 39.0-39.9,adult Z68.39 and Encounter for Depo-Provera contraception Z30.42 [place] [id number] [place] [address] 02707- 9172 Sep, Anxiety F41.9 and Recurrent major depressive disorder, in partial remission F33.41 [place] [id number] [place] [address] 67874- 4034 Aug, Generalized anxiety disorder F41.1 and Major depressive disorder, recurrent episode, moderate F33.1 [place] [id number] [place] [address] 11124- 3039 Aug, [place] [address] [id number] [place] [address] 11025- 4729 Aug, Anxiety F41.9 and Major depressive disorder, recurrent episode, moderate F33.1 [place] [id number] [place] [address] 03934- 3497 25 Jul, 2017 Encounter for immunization Z23 [place] [address] [id number] [place] [address] 75358- 0112 19 Jul, 2017 [place] [address] [id number] [place] [address] 01427- 5240 19 Jul, 2017 [place] [address] [id number] [place] [address] 56885- 0380 14 Jul, 2017 Alkaline phosphatase elevation R74.8 [place] [id number] [place] [address] 79294- 2290 13 Jul, 2017 Encounter for annual physical exam Z00.00 [place] [id number] [address]- 6765 13 Jul, 2017 [facility] [id number] [place] [address] 54210- 6124 12 Jul, 2017 Routine gynecological examination Z01.419 ; Dysuria R30.0 and Screening breast examination Z12.31 [facility] [id number] [place] [address] 15833- 6881 12 Jul, 2017 Generalized anxiety disorder F41.1 and Major depressive disorder, recurrent episode, moderate F33.1 [facility] [id number] [place] [address] 28239- 0878 08 Jul, 2017 [facility] [id number] [place] [address] 76237- 3984 Jun, Generalized anxiety disorder F41.1 and Major depressive disorder, recurrent episode, moderate F33.1 [place] [id number] [place] [address] 29664- 7599 Jun, Other chronic pain G89.29 [facility] [id number] [place] [address] [id number] May, Dental caries K02.9 [place] [id number] [place] [address] 36612- 3911 10 May, 2017 Generalized anxiety disorder F41.1 and Major depressive disorder, recurrent episode, moderate F33.1 [facility] [id number] [place] [address] [id number] 05 May, 2017 Dental examination Z01.20 [facility] [address] [address]- 0901 March, [facility] [id number] [place] [address] 98391- 3461 March, Generalized anxiety disorder F41.1 and Major depressive disorder, recurrent episode, moderate F33.1 [facility] [address] [address]- 4857 March, Encounter for annual physical exam Z00.00 and Other chronic pain G89.29 [facility] [id number] [place] [address] 17680- 7578 Jan, Generalized anxiety disorder F41.1 and Major depressive disorder, recurrent episode, moderate F33.1 [facility] [id number] [place] [address] 61130- 1800 Jan, [facility] [id number] [place] [address] 61844- 8610 Dec, Generalized anxiety disorder F41.1 and Major depressive disorder, recurrent episode, moderate F33.1 [place] [id number] [place] [address] 06157- 2351 Dec, Generalized anxiety disorder F41.1 and Major depressive disorder, recurrent episode, moderate F33.1 [place] [id number] [place] [address] 61918- 2976 Dec, [facility] [id number] [place] [address] 89389- 5472 Dec, Generalized anxiety disorder F41.1 and Major depressive disorder, recurrent episode, moderate F33.1 [place] [id number] [place] [address] 61403- 4258 15 Dec, 2016 Diarrhea, unspecified type R19.7 ; Irritable bowel syndrome with diarrhea K58.0 and Alkaline phosphatase elevation R74.8 [place] [id number] [place] [address] 96892- 0109 Dec, Diarrhea, unspecified type R19.7 and Alkaline phosphatase elevation R74.8 [place] [id number] [place] [address] 39495- 4695 Dec, Generalized anxiety disorder F41.1 and Major depressive disorder, recurrent episode, moderate F33.1 [facility] [address] [address]- 9537 Dec, Low back pain M54.5 [facility] [id number] [place] [address] 82792- 4161 Dec, Generalized anxiety disorder F41.1 and Major depressive disorder, recurrent episode, moderate F33.1 [place] [id number] [place] [address] 94780- 1168 Dec, Irritable bowel syndrome with diarrhea K58.0 and Diarrhea, unspecified type R19.7 [place] [address] 05641- 0340 Dec, [place] [address] 35261- 5854 Dec, Generalized anxiety disorder F41.1 and Major depressive disorder, recurrent episode, moderate F33.1 [facility] [id number] [place] [address] 55003 -1823 Nov, Cough R05 ; Viral illness B34.9 and Chronic diarrhea K52.9 [place] [address] [id number] [place] [address] 12591- 8528 Nov, Generalized anxiety disorder F41.1 and Major depressive disorder, recurrent episode, moderate F33.1 [place] [address] [address] [id number] [place] [address] 17120- 6834 Nov, Encounter for Depo-Provera contraception Z30.42 [place] [id number] [place] [address] 94389- 7858 Nov, Generalized anxiety disorder F41.1 and Major depressive disorder, recurrent episode, moderate F33.1 [place] [address] [address] [id number] [place] [address] 86470- 0843 Nov, Low back pain M54.5 [place] [address] 42876- 3785 Oct, Generalized anxiety disorder F41.1 and Major depressive disorder, recurrent episode, moderate F33.1 [place] [id number] [place] [address] 34370- 8066 Sep, Low back pain M54.5 and Other chronic pain G89.29 [facility] [id number] [place] [address] 89843- 3285 16 Sep, 2016 Generalized anxiety disorder F41.1 and Major depressive disorder, recurrent episode, moderate F33.1 [facility] [id number] [place] [address] 32187- 5364 Sep, Encounter for Depo-Provera contraception Z30.42 [facility] [id number] [place] [address] 63077- 8643 Jul, [facility] [id number] [place] [address] 30987- 9260 Jul, [facility] [id number] [place] [address] 67878- 9208 Jul, Encounter for immunization Z23 [facility] [id number] [place] [address] 70665- 8555 Jun, Encounter for Depo-Provera contraception Z30.42 [facility] [id number] [place] [address] 25096- 4613 Jun, Generalized anxiety disorder F41.1 and Major depressive disorder, recurrent episode, moderate F33.1 [facility] [id number] [place] [address] 42254- 2421 May, Generalized anxiety disorder F41.1 and Major depressive disorder, recurrent episode, moderate F33.1 [facility] [id number] [place] [address] 22090- 3042 Apr, Generalized anxiety disorder F41.1 and Major depressive disorder, recurrent episode, moderate F33.1 [place] [address] [id number] [place] [address] 16750- 4638 March, Encounter for Depo-Provera contraception Z30.42 [facility] [id number] [place] [address] 24685- 0794 March, Generalized anxiety disorder F41.1 and Major depressive disorder, recurrent episode, moderate F33.1 [place] [id number] [place] [address] 22104- 8674 Jan, Generalized anxiety disorder F41.1 and Major depressive disorder, recurrent episode, moderate F33.1 [place] [address] [address] [id number] [place] [address] 83060- 4699 Jan, [facility] [id number] [place] [address] 88813 -5884 Jan, Oral infection K12.2 [place] [id number] [place] [address] 48813- 3620 Jan, Tobacco abuse Z72.0 and Hypokalemia E87.6 [place] [address] [address] [id number] [place] [address] 85995- 1930 Jan, [place] [address] 99571- 3256 Dec, Screening, lipid Z13.220 and Hypokalemia E87.6 [place] [address] [address] [id number] [place] [address] 57385- 4085 Dec, Screening, lipid Z13.220 ; Screening for diabetes mellitus Z13.1 and Tobacco abuse Z72.0 [place] [address] [id number] [place] [address] 68367- 0032 Dec, Generalized anxiety disorder F41.1 and Major depressive disorder, recurrent episode, moderate F33.1 [place] [id number] [place] [address] 19202- 9703 03 Dec, 2015 Routine follow-up Z39.2 ; Encounter for Depo- Provera contraception Z30.42 ; Atyp squam cell of undet signfc cyto smr crvx ( ASC-US) R87.610 and Cervical high risk human papillomavirus (HPV) DNA test positive R87.810 [place] [address] [place] [address] 38047- 9943 Dec, Generalized anxiety disorder F41.1 and Major depressive disorder, recurrent episode, moderate F33.1 [place] [address] [place] [address] 45572- 1185 Nov, Unspecified high-risk O09.90 and 39 weeks gestation of Z3A.39 [place] [address] [address] [id number] [place] [address] 45659- 0985 Nov, Unspecified high-risk O09.90 and 38 weeks gestation of Z3A.38 [place] [address] 61121- 6574 Nov, Unspecified high-risk O09.90 ; Dental infection K04.7 and 37 weeks gestation of Z3A.37 [place] [address] [address] [id number] [place] [address] 33519- 7192 Oct, screening for streptococcus B Z36 ; 36 weeks gestation of Z3A.36 and Breech presentation, not applicable or unspecified fetus O32.1XX0 [place] [address] 23936- 1551 Oct, Unspecified high-risk O09.90 and 34 weeks gestation of Z3A.34 [place] [address] [address] [id number] [place] [address] 98545- 3090 Oct, 32 weeks gestation of Z3A.32 and Unspecified high- risk O09.90 [place] [id number] [place] [address] 75506- 8444 Sep, Unspecified high-risk O09.90 ; Encounter for immunization Z23 and 30 weeks gestation of Z3A.30 [place] [address] [id number] [place] [address] 06374- 8444 Sep, Generalized anxiety disorder F41.1 and Major depressive disorder, recurrent episode, moderate F33.1 [place] [id number] [place] [address] 11518- 1691 Aug, Unspecified high-risk O09.90 [place] [address] [id number] [place] [address] 37376- 1255 Aug, Unspecified high-risk O09.90 [place] [address] 29919- 4915 Aug, Dental infection K04.7 [place] [address] 56869- 3524 Aug, Dysuria R30.0 [place] [address] 53794- 5688 Aug, Dysuria R30.0 [place] [address] 04017- 7340 Jul, Influenza vaccine administered V04.81 [place] [address] 15199- 9430 Jul, Unspecified high-risk V23.9 [place] [address] 06644- 7809 Jul, Unspecified high-risk V23.9 and ASCUS with positive high risk HPV 796.9 [place] [address] 27372- 9219 Jul, [place] [address] [id number] [place] [address] 68756- 7383 Jun, [place] [address] 59547- 9574 Jun, Unspecified high-risk V23.9 ; Pap test, as part of routine gynecological examination V76.2 and Screen for STD (sexually transmitted disease) V74.5 [place] [address] [place] [id number] [place] [address] 89543- 7762 Jun, test positive V72.42 ; Unspecified high-risk V23.9 ; UTI in 646.60 and Vomiting 643.90 [place] [address] 17266- 2546 Jun, [facility] [address] [id number] [place] [address]- 9214 Jun, [facility] [place] [facility] [address] [id number] [place] [address]- 6996 Jun, [facility] [place] [facility] [address] [facility] [id number] [place] [address]- 5876 May, [facility] [place] [facility] [address] [id number] [place] [address]- 1398 Apr, [facility] [address] [facility] [id number] [place] [address]- 9407 Apr, Absence of menstruation 626.0 [facility] [address] [facility] [id number] [place] [address]- 3920 Jan, [facility] [address] [facility] [id number] [place] [address]- 8131 Jan, [facility] [place] [facility] [address] [facility] [id number] [place] [address]- 9906 Dec, [facility] [place] [facility] [address] [facility] [id number] [place] [address]- 1046 Dec, [facility] [place] [facility] [address] [facility] [id number] [place] [address]- 8624 Dec, [facility] [place] [facility] [address] [facility] [id number] [place] [address]- 3214 Dec, [facility] [place] [facility] [address] [facility] [id number] [place] [address]- 5779 Nov, [facility] [place] [facility] [address] [id number] [place] [address]- 4443 Nov, [facility] [place] [facility] [address] [facility] [id number] [place] [address]- 5717 Nov, [facility] [place] [facility] [address] [facility] [id number] [place] [address]- 3397 Nov, [facility] [place] [facility] [address] [id number] [place] [address]- 1214 Nov, [facility] [place] [facility] [address] [id number] [place] [address]- 8354 Nov, [facility] [place] [facility] [address] [id number] [place] [address]- 7541 Nov, [facility] [place] [facility] [address] [id number] [place] [address]- 1502 Nov, [facility] [place] [facility] [address] [id number] [place] [address]- 1659 Oct, [facility] [place] [facility] [address] [id number] [place] [address]- 3135 Oct, [facility] [place] [facility] [address] [id number] [place] [address]- 7595 Oct, [facility] [place] [facility] [address] [id number] [place] [address]- 9513 Oct, [facility] [place] [facility] [address] [id number] [place] [address]- 4914 Sep, [facility] [place] [facility] [address] [id number] [place] [address]- 4161 Sep, [facility] [place] [facility] [address] [id number] [place] [address]- 9071 Jul, [facility] [place] [facility] [address] [id number] [place] [address]- 0821 Jul, [facility] [place] [facility] [address] [id number] [place] [address]- 7552 Apr, [facility] [place] [facility] [address] [id number] [place] [address]- 3837 Apr, [facility] [place] [facility] [address] [id number] [place] [address]- 7840 March, [facility] [place] [facility] [address] [id number] [place] [address]- 5085 March, [facility] [address] [id number] [place] [address]- 2279 March, [facility] [place] [facility] [address] [id number] [place] [address]- 0366 March, [facility] [place] [facility] [address] [id number] [place] [address]- 2442 Nov, [facility] [place] [facility] [address] [id number] [place] [address]- 7209 Nov, [facility] [place] [facility] [address] [id number] [place] [address]- 0964 Nov, [facility] [place] [facility] [address] [id number] [place] [address]- 3420 Nov, [facility] [place] [facility] [address] [id number] [place] [address]- 9143 Nov, [facility] [place] [facility] [address] [id number] [place] [address]- 7202 Nov, [facility] [place] [facility] [address] [id number] [place] [address]- 4111 Nov, [facility] [place] [facility] [address] [id number] [place] [address]- 0850 Nov, [facility] [place] [facility] [address] [id number] [place] [address]- 6161 Nov, [facility] [place] [facility] [address] [id number] [place] [address]- 9269 Nov, [facility] [place] [facility] [address] [id number] [place] [address]- 2261 Nov, [facility] [place] [facility] [address] [id number] [place] [address]- 5227 Oct, [facility] [place] [facility] [address] [id number] [place] [address]- 2771 Oct, [facility] [place] [facility] [address] [id number] [place] [address]- 2520 16 Oct, 2013 [facility] [address] [id number] [place] [address]- 0463 13 Oct, 2013 [facility] [place] [facility] [address] [id number] [place] [address]- 6396 13 Oct, 2013 [facility] [place] [facility] [address] [id number] [place] [address]- 8634 12 Oct, 2013 [facility] [place] [facility] [address] [id number] [place] [address]- 4197 11 Oct, 2013 [facility] [place] [facility] [address] [id number] [place] [address]- 4619 Oct, [facility] [place] [facility] [address] [id number] [place] [address]- 4699 Oct, [facility] [place] [facility] [address] [id number] [place] [address]- 0039 Oct, [facility] [address] [id number] [place] [address]- 7868 Oct, [facility] [place] [facility] [address] [id number] [place] [address]- 9847 Oct, [facility] [place] [facility] [address] [id number] [place] [address]- 5508 Sep, [facility] [place] [facility] [address] [id number] [place] [address]- 4635 Sep, [facility] [place] [facility] [address] [id number] [place] [address] Sep, [facility] [place] [facility] [address] [id number] [place] [address] Sep, [facility] [place] [facility] [address] [id number] [place] [address] Aug, [facility] [place] [facility] [address] [id number] [place] [address] Aug, [facility] [address] [id number] [place] [address] Aug, [facility] [place] [facility] [address] [id number] [place] [address] Aug, [facility] [place] [facility] [address] [id number] [place] [address] Jun, [facility] [place] [facility] [address] [id number] [place] [address] Jun, [facility] [address] [id number] [place] [address] Apr, [facility] [place] [facility] [address] [id number] [place] [address] March, [facility] [place] [facility] [address] [id number] [place] [address] 17 Jan, 2013 [facility] [place] [facility] [address] [id number], [place] [address] 16 Jan, 2013 [facility] [place] [facility] [address] [id number] [place] [address] 15 Jan, 2013 [facility] [place] [facility] [address] [id number], [place] [address] Jan, [facility] [place] [facility] [address] [id number], [place] [address] Dec, [facility] [place] [facility] [address] [id number], [place] [address] Dec, [facility] [place] [facility] [address] [id number] [place] [address] Dec, [facility] [place] [facility] [address] [id number], [place] [address] Dec, [facility] [place] [facility] [address] [id number] [place] [address] Oct, [facility] [place] [facility] [address] [id number] [place] [address] Oct, [facility] [place] [facility] [address] [id number] [place] [address]- [address] Oct, [facility] [place] [facility] [address] [id number] [place] [address] Oct, [facility] [place] [facility] [address] [id number] [place] [address] Oct, [facility] [place] [facility] [address] [id number] [place] [address] Oct, [facility] [place] [facility] [address] [id number] [place] [address] Sep, [facility] [place] [facility] [address] [id number] [place] [address] Sep, [facility] [place] [facility] [address] [facility] [id number] [place] [address] Aug, [facility] [place] [facility] [address] [id number] [place] [address] Aug, [facility] [place] [facility] [address] [id number] [place] [address] Aug, [facility] [place] [facility] [address] [facility] [id number] [place] [address] Jul, [facility] [place] [facility] [address] [id number] [place] [address] Jul, [facility] [place] [facility] [address] [id number] [place] [address] Jul, [facility] [place] [facility] [address] [id number] [place] [address] Jul, [facility] [place] [facility] [address] [facility] [id number] [place] [address] Jun, [facility] [place] [facility] [address] [facility] [id number] [place] [address] Jun, [facility] [place] [facility] [address] [id number] [place] [address] Jun, [facility] [place] [facility] [address] [id number] [place] [address] Jun, [facility] [place] [facility] [address] [address] [id number] [place] [address] Jun, [facility] [place] [facility] [address] [id number] [place] [address] May, [facility] [address] [id number] [place] [address] May, [facility] [place] [facility] [address] [id number] [place] [address] Apr, [facility] [address] [id number] [place] [address] Apr, [facility] [address] [id number] [place] [address] Apr, [facility] [place] [facility] [address] [id number] [place] [address] March, [facility] [place] [facility] [address] [id number] [place] [address] March, [facility] [place] [facility] [address] [id number] [place] [address] March, [facility] [place] [facility] [address] [id number] [place] [address] Jan, [facility] [place] [facility] [address] [id number] [place] [address] Dec, [facility] [place] [facility] [address] [id number] [place] [address] Dec, [facility] [place] [facility] [address] [id number] [place] [address] Dec, [facility] [place] [facility] [address] [id number] [place] [address] Dec, [facility] [address] [id number] [place] [address] Dec, [facility] [place] [facility] [address] [id number] [place] [address] 16 Dec, 2011 [facility] [address] [id number] [place] [address] Dec, [facility] [place] [facility] [address] [id number] [place] [address] 29 Dec, 2011 [facility] [place] [facility] [address] [id number] [place] [address] 28 Dec, 2011 [facility] [place] [facility] [address] [id number] [place] [address] 21 Dec, 2011 [facility] [address] [id number] [place] [address] 13 Dec, 2011 [facility] [place] [facility] [address] [id number] [place] [address] Dec, [facility] [place] [facility] [address] [id number] [place] [address] 10 Dec, 2011 [facility] [place] [facility] [address] [facility] [id number] [place] [address] Nov, [facility] [place] [facility] [address] [id number] [place] [address] 24 Nov, 2011 [facility] [place] [facility] [address] [id number] [place] [address] Nov, [facility] [place] [facility] [address] [id number] [place] [address] Nov, [facility] [place] [facility] [address] [id number] [place] [address] 17 Nov, 2011 [facility] [place] [facility] [address] [facility] [id number] [place] [address] 16 Nov, 2011 [facility] [place] [facility] [address] [id number] [place] [address] Nov, [facility] [place] [facility] [address] [id number] [place] [address] Nov, [facility] [place] [facility] [address] [id number] [place] [address] Oct, [facility] [place] [facility] [address] [id number] [place] [address] Oct, [facility] [place] [facility] [address] [id number] [place] [address] 15 Oct, 2011 [facility] [place] [facility] [address] [id number] [place] [address] 1574 15 Oct, 2011 [facility] [place] [facility] [address] [id number] [place] [address] Oct, [facility] [place] [facility] [address] [id number] [place] [address] Oct, [facility] [place] [facility] [address] [id number] [place] [address] Oct, [facility] [place] [facility] [address] [id number] [place] [address] 23 Sep, 2011 [facility] [place] [facility] [address] [id number] [place] [address] 18 Sep, 2011 [facility] [place] [facility] [address] [id number] [place] [address] 18 Sep, 2011 [facility] [place] [facility] [address] [id number] [place] [address]- [address] 16 Sep, 2011 [facility] [place] [facility] [address] [id number] [place] [address] 16 Sep, 2011 [facility] [place] [facility] [address] [id number] [place] [address] 08 Sep, 2011 [facility] [place] [facility] [address] [id number] [place] [address] Sep, [facility] [place] [facility] [address] [id number] [place] [address] Aug, [facility] [place] [facility] [address] [id number] [place] [address] Aug, [facility] [place] [facility] [address] [id number] [place] [address] 8915 Jun, [facility] [place] [facility] [address] [id number] [place] [address] Oct, [facility] [place] [facility] [address] [id number] [place] [address] Oct, [facility] [place] [facility] [address] [id number] [place] [address] 08 Oct, 2010 [facility] [place] [facility] [address] [id number] [place] [address]- [address] 16 Dec, 2009 [facility] [place] [facility] [address] [id number] [place] [address] Dec, [facility] [place] [facility] [address] [id number] [place] [address]134 18 Dec, 2009 [facility] [place] [facility] [address] [id number] [place] [address]75 Dec, [facility] [place] [facility] [address] [id number] [place] [address] Nov, [facility] [place] [facility] [address] [id number] [place] [address] 6672 29 Oct, 2009 [facility] [place] [facility] [address] [id number] [place] [address]21 17 Oct, 2009 [facility] [place] [facility] [address] [id number] [place] [address] 15 Oct, 2009 [facility] [place] [facility] [address] [id number] [place] [address] 15 Oct, 2009 [facility] [place] [facility] [address] [id number] [address] Sep, [facility] [address] [id number] [address] Sep, [facility] [id number] [place] [address] Aug, [facility] [id number] [place] [address] Aug, [facility] [id number] [address] Aug, [facility] [id number] [place] [address] Aug, [facility] [id number] [place] [address] Aug, [facility] [id number] [place] [address] Jun, IMMUNIZATIONS No Known Immunizations SOCIAL HISTORY Never Assessed REASON FOR VISIT BH f/u PLAN OF CARE Activity Details Follow Up 2 Weeks Reason:BH F/U VITAL SIGNS MEDICATIONS Unknown Medications RESULTS No Results PROCEDURES Procedure Date Ordered Result Body Site Psychotherapy, patient &/family, 45 minutes, established patient Jul 13, 2017 INSTRUCTIONS MEDICATIONS ADMINISTERED No Known Medications MEDICAL (GENERAL) HISTORY Type Description Date Medical History Tobacco abuse Surgical History tonsillectomy age 15 Surgical History cholecystectomy 2009 Surgical History colonoscopy 3 times Surgical History 4 natural births Hospitalization History Hospitalization for surgery only
--- OUTSIDE RECORDS SUMMARY | 2018-08-17 18:15 | XMS REPORT ---
Author Author CARLOSFABY GRIGGS Organization [facility] Address [address] [place] [address] Care Team Providers Care Management Retail Intern Name Role Phone FABY GONZALEZ Unavailable PROBLEMS Type Condition ICD9-CM Code [id number] Code Onset Dates Condition Status SNOMED Code Problem Generalized anxiety disorder F41.1 Active 89209295 Problem Other chronic pain G89.29 Active 90619903 Problem History of methamphetamine abuse Z87.898 Active 705143012 Problem Cervical high risk HPV (human papillomavirus) test positive R87.810 Active 640280205 Problem Atyp squam cell of undet signfc cyto smr crvx (ASC-US) R87.610 Active 405361428 Problem Major depressive disorder, recurrent episode, moderate F33.1 Active 839562152 Problem BMI 36.0-36.9,adult Z68.36 Active 447659767 Problem BMI 39.0-39.9,adult Z68.39 Active 114553872 Problem Alkaline phosphatase elevation R74.8 Active 416438819 Problem Irritable bowel syndrome with diarrhea K58.0 Active 780208154 Problem Recurrent major depressive disorder, in partial remission F33.41 Active 68336731 Problem Anxiety F41.9 Active 66695909 ALLERGIES No Information ENCOUNTERS Encounter Location Date Diagnosis [facility] [id number] [address] May, [facility] [id number] [address] Apr, [place] [id number] [place] [address] 58635- 8804 Apr, Weight loss counseling, encounter for Z71.3 and BMI 36.0- 36.9,adult Z68.36 [facility] [id number] [place] [address] 33891- 1128 Apr, Anxiety F41.9 [place] [id number] [address] March, Other chronic pain G89.29 [facility] [address], [place] [address] March, [place] [id number] [place] [address] 81026- 6620 March, Generalized anxiety disorder F41.1 and Major depressive disorder, recurrent episode, moderate F33.1 [place] [id number] [place] [address] 32788- 6458 Jan, Encounter for Depo-Provera contraception Z30.42 [place] [id number] [place] [address] 89074- 9583 Jan, Generalized anxiety disorder F41.1 and Major depressive disorder, recurrent episode, moderate F33.1 [place] [id number] [place] [address] 87531- 3079 Dec, Anxiety F41.9 and Recurrent major depressive disorder, in partial remission F33.41 [place] [id number] [place] [address] 35978- 4700 Nov, [place] [id number] [place] [address] 13962- 6813 Nov, Other chronic pain G89.29 ; Encounter for surveillance of injectable contraceptive Z30.42 ; BMI 39.0-39.9,adult Z68.39 and Encounter for Depo-Provera contraception Z30.42 [place] [id number] [place] [address] 53157- 9499 Sep, Anxiety F41.9 and Recurrent major depressive disorder, in partial remission F33.41 [place] [id number] [place] [address] 53241- 4410 Aug, Generalized anxiety disorder F41.1 and Major depressive disorder, recurrent episode, moderate F33.1 [place] [id number] [place] [address] 60070- 1174 Aug, [place] [id number] [place] [address] 54611- 3506 Aug, Anxiety F41.9 and Major depressive disorder, recurrent episode, moderate F33.1 [place] [id number] [place] [address] 27184- 7839 25 Jul, 2017 Encounter for immunization Z23 [place] [id number] [place] [address] 12789- 1247 19 Jul, 2017 [place] [id number] [place] [address] 31308- 4156 Jul, [place] [id number] [place] [address] 02684- 9411 14 Jul, 2017 Alkaline phosphatase elevation R74.8 [place] [address] 02040- 0999 13 Jul, 2017 Encounter for annual physical exam Z00.00 [place] [id number] [place] [address] 39114- 2668 13 Jul, 2017 [place] [id number] [place] [address] 30905- 1150 12 Jul, 2017 Routine gynecological examination Z01.419 ; Dysuria R30.0 and Screening breast examination Z12.31 [place] [id number] [place] [address] 69660- 9596 12 Jul, 2017 Generalized anxiety disorder F41.1 and Major depressive disorder, recurrent episode, moderate F33.1 [place] [id number] [place] [address] 66372- 6418 08 Jul, 2017 [place] [id number] [place] [address] 64130- 3371 Jun, Generalized anxiety disorder F41.1 and Major depressive disorder, recurrent episode, moderate F33.1 [place] [id number] [place] [address] 76926- 9386 Jun, Other chronic pain G89.29 [facility] [id number] [id number] May, Dental caries K02.9 [facility] [address] [address] May, Generalized anxiety disorder F41.1 and Major depressive disorder, recurrent episode, moderate F33.1 [facility] [id number] [place] [address] [id number] May, Dental examination Z01.20 [facility] [id number] [place] [address] 91185- 4276 March, [facility] [id number] [place] [address] [id number]- 6376 March, Generalized anxiety disorder F41.1 and Major depressive disorder, recurrent episode, moderate F33.1 [facility] [address] [place] [address] 98805- 3047 March, Encounter for annual physical exam Z00.00 and Other chronic pain G89.29 [facility] [address] [place] [address] 82070- 3963 Jan, Generalized anxiety disorder F41.1 and Major depressive disorder, recurrent episode, moderate F33.1 [place] [address] [address]- 3686 Jan, [facility] [address] [place] [address] 58716513- 2489 Dec, Generalized anxiety disorder F41.1 and Major depressive disorder, recurrent episode, moderate F33.1 [facility] [address] [place] [address] [id number]- 8026 Dec, Generalized anxiety disorder F41.1 and Major depressive disorder, recurrent episode, moderate F33.1 [facility] [address] [address]- 2077 Dec, [place] [id number] [place] [address] 65419- 0408 Dec, Generalized anxiety disorder F41.1 and Major depressive disorder, recurrent episode, moderate F33.1 [place] [id number] [place] [address] 41830- 2278 Dec, Diarrhea, unspecified type R19.7 ; Irritable bowel syndrome with diarrhea K58.0 and Alkaline phosphatase elevation R74.8 [place] [id number] [place] [address] 36347- 1522 Dec, Diarrhea, unspecified type R19.7 and Alkaline phosphatase elevation R74.8 [place] [address] 20857- 7525 Dec, Generalized anxiety disorder F41.1 and Major depressive disorder, recurrent episode, moderate F33.1 [place] [id number] [place] [address] 95469- 5211 Dec, Low back pain M54.5 [place] [id number] [place] [address] 80850- 0970 Dec, Generalized anxiety disorder F41.1 and Major depressive disorder, recurrent episode, moderate F33.1 [place] [id number] [place] [address] 15286- 1151 Dec, Irritable bowel syndrome with diarrhea K58.0 and Diarrhea, unspecified type R19.7 [place] [id number] [place] [address] 45278- 6934 Dec, [place] [id number] [place] [address] 02129- 8649 Dec, Generalized anxiety disorder F41.1 and Major depressive disorder, recurrent episode, moderate F33.1 [facility] [address] [place] [address] 78067 -3673 Nov, Cough R05 ; Viral illness B34.9 and Chronic diarrhea K52.9 [place] [id number] [place] [address] 23766- 9949 Nov, Generalized anxiety disorder F41.1 and Major depressive disorder, recurrent episode, moderate F33.1 [facility] [id number] [place] [address] 02904- 6575 Nov, Encounter for Depo-Provera contraception Z30.42 [facility] [id number] [place] [address] 42207- 4674 Nov, Generalized anxiety disorder F41.1 and Major depressive disorder, recurrent episode, moderate F33.1 [place] [id number] [place] [address] 87352- 0036 Nov, Low back pain M54.5 [place] [id number] [place] [address] 78979- 3624 Oct, Generalized anxiety disorder F41.1 and Major depressive disorder, recurrent episode, moderate F33.1 [place] [id number] [place] [address] 27601- 1409 Sep, Low back pain M54.5 and Other chronic pain G89.29 [place] [id number] [place] [address] 91131- 8698 Sep, Generalized anxiety disorder F41.1 and Major depressive disorder, recurrent episode, moderate F33.1 [place] [id number] [place] [address] 26131- 7296 Sep, Encounter for Depo-Provera contraception Z30.42 [place] [address] [place] [address] 04847- 5487 Jul, [place] [address] 24718- 7019 Jul, [place] [id number] [place] [address] 00490- 2620 19 Jul, 2016 Encounter for immunization Z23 [facility] [id number] [place] [address] 97884- 1760 Jun, Encounter for Depo-Provera contraception Z30.42 [facility] [id number] [place] [address] 18331- 7458 Jun, Generalized anxiety disorder F41.1 and Major depressive disorder, recurrent episode, moderate F33.1 [facility] [id number] [place] [address] 14941- 3135 May, Generalized anxiety disorder F41.1 and Major depressive disorder, recurrent episode, moderate F33.1 [facility] [id number] [place] [address] 36977- 6071 Apr, Generalized anxiety disorder F41.1 and Major depressive disorder, recurrent episode, moderate F33.1 [facility] [id number] [place] [address] 60468- 5880 March, Encounter for Depo-Provera contraception Z30.42 [facility] [id number] [place] [address] 04160- 9596 March, Generalized anxiety disorder F41.1 and Major depressive disorder, recurrent episode, moderate F33.1 [facility] [id number] [place] [address] 67859- 0579 Jan, Generalized anxiety disorder F41.1 and Major depressive disorder, recurrent episode, moderate F33.1 [facility] [id number] [place] [address] 53042- 4454 Jan, [facility] [id number] [place] [address] 37240 -0411 Jan, Oral infection K12.2 [facility] [id number] [place] [address] 96808- 2017 Jan, Tobacco abuse Z72.0 and Hypokalemia E87.6 [facility] [id number] [place] [address] 62788- 7984 Jan, [facility] [id number] [place] [address] 25180- 3458 Dec, Screening, lipid Z13.220 and Hypokalemia E87.6 [place] [id number] [place] [address] 26446- 1617 Dec, Screening, lipid Z13.220 ; Screening for diabetes mellitus Z13.1 and Tobacco abuse Z72.0 [place] [address] 72258- 0905 Dec, Generalized anxiety disorder F41.1 and Major depressive disorder, recurrent episode, moderate F33.1 [place] [address] 30213- 4158 03 Dec, 2015 Routine follow-up Z39.2 ; Encounter for Depo- Provera contraception Z30.42 ; Atyp squam cell of undet signfc cyto smr crvx ( ASC-US) R87.610 and Cervical high risk human papillomavirus (HPV) DNA test positive R87.810 [place] [address] 97783- 8348 Dec, Generalized anxiety disorder F41.1 and Major depressive disorder, recurrent episode, moderate F33.1 [place] [address] 14839- 4168 Nov, Unspecified high-risk O09.90 and 39 weeks gestation of Z3A.39 [place] [address] 66063- 6564 Nov, Unspecified high-risk O09.90 and 38 weeks gestation of Z3A.38 [place] [address] 91352- 6256 Nov, Unspecified high-risk O09.90 ; Dental infection K04.7 and 37 weeks gestation of Z3A.37 [place] [id number] [place] [address] 36428- 9463 Oct, screening for streptococcus B Z36 ; 36 weeks gestation of Z3A.36 and Breech presentation, not applicable or unspecified fetus O32.1XX0 [place] [id number] [place] [address] 74191- 5151 Oct, Unspecified high-risk O09.90 and 34 weeks gestation of Z3A.34 [place] [id number] [place] [address] 60245- 6661 Oct, 32 weeks gestation of Z3A.32 and Unspecified high- risk O09.90 [place] [address] 13067- 8994 Sep, Unspecified high-risk O09.90 ; Encounter for immunization Z23 and 30 weeks gestation of Z3A.30 [place] [address] 83527- 6294 Sep, Generalized anxiety disorder F41.1 and Major depressive disorder, recurrent episode, moderate F33.1 [place] [address] 88536- 2377 Aug, Unspecified high-risk O09.90 [place] [address] 30878- 6731 Aug, Unspecified high-risk O09.90 [place] [id number] [place] [address] 21178- 6082 Aug, Dental infection K04.7 [place] [address] 92797- 7945 Aug, Dysuria R30.0 [place] [address] 67677- 8215 Aug, Dysuria R30.0 [place] [address] 58291- 5017 Jul, Influenza vaccine administered V04.81 [place] [address] 60829- 9940 Jul, Unspecified high-risk V23.9 [place] [address], [place] [address]- 3968 Jul, Unspecified high-risk V23.9 and ASCUS with positive high risk HPV 796.9 [facility] [address], [place] [address]- 4889 Jul, [facility] [address] [place] [address] 70948- 3049 Jun, [facility] [address] [place] [address] 47376- 7379 Jun, Unspecified high-risk V23.9 ; Pap test, as part of routine gynecological examination V76.2 and Screen for STD (sexually transmitted disease) V74.5 [facility] [address], [place] [address]- 9608 Jun, test positive V72.42 ; Unspecified high-risk V23.9 ; UTI in 646.60 and Vomiting 643.90 [facility] [address], [place] [address]- 5542 Jun, [facility] [id number] [place] [address] 02020- 8008 Jun, [facility] [address] [place] [address] 07002- 9196 Jun, [facility] [address] [place] [address] 51428- 7616 May, [facility] [address] [place] [address] 09796- 9412 Apr, [facility] [id number] [place] [address] 02045- 9437 Apr, Absence of menstruation 626.0 [facility] [address] [address]- 0065 Jan, [facility] [id number] [place] [address] 14790- 5221 Jan, [facility] [place] [facility] [address] [id number] [place] [address]- 7583 Dec, [facility] [place] [facility] [address] [id number] [place] [address]- 0576 Dec, [facility] [place] [facility] [address] [id number] [place] [address]- 7414 Dec, [facility] [place] [facility] [address] [id number] [place] [address]- 6699 Dec, [facility] [place] [facility] [address] [id number] [place] [address]- 9680 Nov, [facility] [place] [facility] [address] [id number] [place] [address]- 9427 Nov, [facility] [place] [facility] [address] [facility] [id number] [place] [address]- 4668 Nov, [facility] [place] [facility] [address] [id number] [place] [address]- 6455 Nov, [facility] [place] [facility] [address] [facility] [id number] [place] [address]- 7964 Nov, [facility] [place] [facility] [address] [facility] [id number] [place] [address]- 3660 Nov, [facility] [place] [facility] [address] [facility] [id number] [address]- 7264 Nov, [facility] [place] [facility] [address] [id number] [address]- 3673 Nov, [facility] [place] [facility] [address] [id number] [place] [address]- 2214 Oct, [facility] [place] [facility] [address] [id number] [place] [address]- 3919 Oct, [facility] [place] [facility] [address] [facility] [id number] [place] [address]- 5352 Oct, [facility] [place] [facility] [address] [id number] [place] [address]- 6145 Oct, [facility] [place] [facility] [address] [id number] [place] [address]- 4848 Sep, [facility] [place] [facility] [address] [id number] [place] [address]- 6988 Sep, [facility] [place] [facility] [address] [id number] [place] [address]- 8637 Jul, [facility] [place] [facility] [address] [id number] [place] [address]- 4782 Jul, [facility] [place] [facility] [address] [id number] [place] [address]- 8015 Apr, [facility] [place] [facility] [address] [id number] [place] [address]- 5212 Apr, [facility] [place] [facility] [address] [id number] [place] [address]- 6376 March, [facility] [place] [facility] [address] [id number] [place] [address]- 0774 March, [facility] [place] [facility] [address] [id number] [place] [address]- 1015 March, [facility] [place] [facility] [address] [id number] [place] [address]- 0746 March, [facility] [place] [facility] [address] [id number] [place] [address]- 9397 Nov, [facility] [place] [facility] [address] [id number] [place] [address]- 3147 Nov, [facility] [place] [facility] [address] [id number] [place] [address]- 1752 Nov, [facility] [place] [facility] [address] [id number] [place] [address]- 1195 Nov, [facility] [place] [facility] [address] [id number] [place] [address]- 9833 Nov, [facility] [place] [facility] [address] [id number] [place] [address]- 3536 Nov, [facility] [place] [facility] [address] [id number] [place] [address]- 3064 Nov, [facility] [place] [facility] [address] [id number] [place] [address]- 3705 Nov, [facility] [place] [facility] [address] [id number] [place] [address]- 8864 Nov, [facility] [place] [facility] [address] [id number] [place] [address]- 5198 Nov, [facility] [place] [facility] [address] [id number] [place] [address]- 7840 Nov, [facility] [place] [facility] [address] [id number] [place] [address]- 5817 Oct, [facility] [place] [facility] [address] [id number] [place] [address]- 6341 16 Oct, 2013 [facility] [place] [facility] [address] [id number] [place] [address]- 9206 16 Oct, 2013 [facility] [place] [facility] [address] [id number] [place] [address]- 2490 13 Oct, 2013 [facility] [place] [facility] [address] [id number] [place] [address]- 2441 13 Oct, 2013 [facility] [place] [facility] [address] [id number] [address]- 5651 12 Oct, 2013 [facility] [place] [facility] [address] [id number] [place] [address]- 9123 11 Oct, 2013 [facility] [place] [facility] [address] [id number] [place] [address]- 3212 11 Oct, 2013 [facility] [place] [facility] [address] [id number] [place] [address]- 6705 10 Oct, 2013 [facility] [place] [facility] [address] [id number] [place] [address]- 3557 Oct, [facility] [address] [id number] [place] [address]- 4123 Oct, [facility] [place] [facility] [address] [id number] [place] [address]- 1783 Oct, [facility] [place] [facility] [address] [id number] [place] [address]- 9444 Sep, [facility] [place] [facility] [address] [id number] [place] [address] Sep, [facility] [place] [facility] [address] [id number] [place] [address] Sep, [facility] [place] [facility] [address] [id number] [place] [address] Sep, [facility] [address] [id number] [place] [address] Aug, [facility] [place] [facility] [address] [id number] [place] [address] Aug, [facility] [place] [facility] [address] [id number] [place] [address] Aug, [facility] [place] [facility] [address] [id number] [place] [address] Aug, [facility] [place] [facility] [address] [id number] [place] [address] Jun, [facility] [place] [facility] [address] [id number] [place] [address] Jun, [facility] [place] [facility] [address] [id number] [place] [address] Apr, [facility] [place] [facility] [address] [id number] [place] [address] March, [facility] [place] [facility] [address] [id number] [address] Jan, [facility] [place] [facility] [address] [id number] [place] [address] 16 Jan, 2013 [facility] [place] [facility] [address] [id number] [place] [address] 15 Jan, 2013 [facility] [place] [facility] [address] [id number] [place] [address] 11 Jan, 2013 [facility] [place] [facility] [address] [id number] [place] [address] Dec, [facility] [place] [facility] [address] [id number] [place] [address] Dec, [facility] [place] [facility] [address] [id number] [place] [address] Dec, [facility] [place] [facility] [address] [id number] [place] [address] Dec, [facility] [place] [facility] [address] [id number] [place] [address] Oct, [facility] [place] [facility] [address] [id number] [place] [address] Oct, [facility] [place] [facility] [address] [id number] [place] [address] Oct, [facility] [place] [facility] [address] [id number] [place] [address] Oct, [facility] [place] [facility] [address] [id number] [place] [address] Oct, [facility] [place] [facility] [address] [id number] [place] [address] Oct, [facility] [place] [facility] [address] [id number] [place] [address] Sep, [facility] [place] [facility] [address] [id number] [place] [address] Sep, [facility] [place] [facility] [address] [id number] [place] [address] Aug, [facility] [place] [facility] [address] [id number] [place] [address] Aug, [facility] [place] [facility] [address] [id number] [place] [address] Aug, [facility] [place] [facility] [address] [id number] [place] [address] Jul, [facility] [place] [facility] [address] [id number] [place] [address] Jul, [facility] [place] [facility] [address] [id number] [place] [address] Jul, [facility] [place] [facility] [address] [id number] [place] [address] Jul, [facility] [place] [facility] [address] [id number] [place] [address] Jun, [facility] [place] [facility] [address] [id number] [place] [address] 79[address] Jun, [facility] [place] [facility] [address] [id number] [place] [address] Jun, [facility] [place] [facility] [address] [id number] [place] [address] 15[address] Jun, [facility] [place] [facility] [address] [id number] [place] [address] Jun, [facility] [place] [facility] [address] [id number] [place] [address] May, [facility] [place] [facility] [address] [id number] [place] [address] May, [facility] [place] [facility] [address] [id number] [place] [address] Apr, [facility] [place] [facility] [address] [id number] [place] [address] 47[address] Apr, [facility] [place] [facility] [address] [id number] [place] [address]47 07 Apr, 2012 [facility] [address] [id number] [place] [address] March, [facility] [place] [facility] [address] [id number] [place] [address] 2546 March, [facility] [address] [id number] [place] [address] March, [facility] [address] [id number] [place] [address] Jan, [facility] [address] [id number] [place] [address] Dec, [facility] [address] [id number] [place] [address] Dec, [facility] [address] [id number] [place] [address] Dec, [facility] [address] [id number] [place] [address] Dec, [facility] [address] [id number] [place] [address] 18[address] Dec, [facility] [address] [id number] [place] [address] 16 Dec, 2011 [facility] [place] [facility] [address] [id number] [place] [address] 09 Dec, 2011 [facility] [address] [id number] [place] [address]- 49[address] 29 Dec, 2011 [facility] [place] [facility] [address] [id number] [place] [address] 28 Dec, 2011 [facility] [place] [facility] [address] [id number] [place] [address] 21 Dec, 2011 [facility] [place] [facility] [address] [id number] [place] [address] 3978 13 Dec, 2011 [facility] [place] [facility] [address] [id number] [place] [address] 9662 11 Dec, 2011 [facility] [place] [facility] [address] [id number] [place] [address] 10 Dec, 2011 [facility] [place] [facility] [address] [id number] [place] [address] 6[address] 30 Nov, 2011 [facility] [place] [facility] [address] [id number] [place] [address] 44[address] Nov, [facility] [place] [facility] [address] [id number] [place] [address] 95[address] Nov, [facility] [place] [facility] [address] [id number] [place] [address]- 1716 Nov, [facility] [place] [facility] [address] [id number] [place] [address]- 8928 Nov, [facility] [place] [facility] [address] [id number] [place] [address]- 6045 Nov, [facility] [place] [facility] [address] [id number] [place] [address]- [address] Nov, [facility] [place] [facility] [address] [id number] [place] [address]- 0568 Nov, [facility] [place] [facility] [address] [id number] [place] [address] Oct, [facility] [place] [facility] [address] [id number] [place] [address]- 6713 Oct, [facility] [place] [facility] [address] [id number] [place] [address] 1570 Oct, [facility] [place] [facility] [address] [id number] [place] [address]- 2927 Oct, [facility] [place] [facility] [address] [id number] [place] [address] 8756 Oct, [facility] [place] [facility] [address] [id number] [place] [address]- 4740 13 Oct, 2011 [facility] [address] [id number] [place] [address] 07 Oct, 2011 [facility] [address] [id number] [place] [address]- 0085 Sep, [facility] [address] [id number] [place] [address]- 0453 Sep, [facility] [address] [id number] [place] [address]- 1441 Sep, [facility] [address] [id number] [place] [address]- 0501 16 Sep, 2011 [facility] [address] [id number] [place] [address] 1375 Sep, [facility] [address] [facility] [id number] [place] [address]- 0988 Sep, [facility] [address] [id number] [place] [address]- 4981 Sep, [facility] [address] [id number] [place] [address] 4499 Aug, [facility] [address] [id number] [place] [address] 8[address] Aug, [facility] [address] [id number] [place] [address]- 8987 Jun, [facility] [address] [id number] [place] [address] Oct, [facility] [place] [facility] [address] [id number] [place] [address]- 7785 Oct, [facility] [place] [facility] [address] [id number] [place] [address] 2546 Oct, [facility] [place] [facility] [address] [id number] [place] [address]- 5243 Dec, [facility] [place] [facility] [address] [id number] [place] [address]- 0336 11 Dec, 2009 [facility] [place] [facility] [address] [id number] [place] [address]- 6676 18 Dec, 2009 [facility] [place] [facility] [address] [id number] [place] [address] 2546 11 Dec, 2009 [facility] [place] [facility] [address] [id number] [place] [address] 2546 20 Nov, 2009 [facility] [place] [facility] [address] [id number] [place] [address]- 2036 29 Oct, 2009 [facility] [place] [facility] [address] [id number] [place] [address]- 8156 17 Oct, 2009 [facility] [place] [facility] [address] [id number] [place] [address]- 2426 15 Oct, 2009 [facility] [place] [facility] [address] [id number] [address] 15 Oct, 2009 [facility] [place] [facility] [address] [id number] [place] [address]- 8534 24 Sep, 2009 [facility] [place] [facility] [address] [facility] [id number], [place] [address] 03 Sep, 2009 [facility] [place] [facility] [address] [id number], [place] [address]- 5256 29 Aug, 2009 [facility] [place] [facility] [address] [id number], [place] [address] 2546 23 Aug, 2009 [facility] [place] [facility] [address] [id number], [place] [address] 2546 13 Aug, 2009 [facility] [place] [facility] [address] [id number], [place] [address] 2546 13 Aug, 2009 [facility] [place] [facility] [address] [facility] [id number], [place] [address] 2546 12 Aug, 2009 [facility] [place] [facility] [address] [id number] [place] [address] Jun, IMMUNIZATIONS No Known Immunizations SOCIAL HISTORY Never Assessed REASON FOR VISIT Requests return call PLAN OF CARE VITAL SIGNS MEDICATIONS Unknown Medications RESULTS No Results PROCEDURES No Known procedures INSTRUCTIONS MEDICATIONS ADMINISTERED No Known Medications MEDICAL (GENERAL) HISTORY Type Description Date Medical History Tobacco abuse Surgical History tonsillectomy age 15 Surgical History cholecystectomy 2009 Surgical History colonoscopy 3 times Surgical History 4 natural births Hospitalization History Hospitalization for surgery only
--- OUTSIDE RECORDS SUMMARY | 2018-08-17 18:16 | XMS REPORT ---
Author Author CARLOSFABY GRIGGS [facility] Address [address] [place] [address] Care Team Providers Care Auditor Supervisor Name Role Phone FABY GONZALEZ Unavailable PROBLEMS Type Condition ICD9-CM Code NBA67-UH Code Onset Dates Condition Status SNOMED Code Problem Major depressive disorder, recurrent episode, moderate F33.1 Active 962139798 Problem History of methamphetamine abuse Z87.898 Active 096306143 Problem Generalized anxiety disorder F41.1 Active 02190407 Problem Cervical high risk HPV (human papillomavirus) test positive R87.810 Active 600550835 Problem Atyp squam cell of undet signfc cyto smr crvx (ASC-US) R87.610 Active 043135747 Problem BMI 39.0-39.9,adult Z68.39 Active 687392804 Problem Recurrent major depressive disorder, in partial remission F33.41 Active 31302450 Problem Irritable bowel syndrome with diarrhea K58.0 Active 794673657 Problem Other chronic pain G89.29 Active 33245050 Problem Anxiety F41.9 Active 91479107 Problem Alkaline phosphatase elevation R74.8 Active 061461630 ALLERGIES No Information ENCOUNTERS Encounter Location Date Diagnosis [place] [id number] [place] [address] 47015- 9243 Jan, [facility] [id number] [place] [address] 85362- 7121 Dec, Anxiety F41.9 and Recurrent major depressive disorder, in partial remission F33.41 [facility] [id number] [place] [address] 10997- 2238 Nov, [place] [id number] [place] [address] 81417- 2700 Nov, Other chronic pain G89.29 ; Encounter for surveillance of injectable contraceptive Z30.42 ; BMI 39.0-39.9,adult Z68.39 and Encounter for Depo-Provera contraception Z30.42 [place] [address] [id number]- 7668 Sep, Anxiety F41.9 and Recurrent major depressive disorder, in partial remission F33.41 [place] [address] 59327- 6881 Aug, Generalized anxiety disorder F41.1 and Major depressive disorder, recurrent episode, moderate F33.1 [place] [address] 54342- 5711 Aug, [place] [address] 82090- 2491 Aug, Anxiety F41.9 and Major depressive disorder, recurrent episode, moderate F33.1 [place] [address] 12600- 2664 Jul, Encounter for immunization Z23 [place] [address] 83726- 5347 19 Jul, 2017 [place] [address] 14174- 6089 Jul, [place] [address] 07849- 0473 14 Jul, 2017 Alkaline phosphatase elevation R74.8 [place] [address] 76301- 2246 13 Jul, 2017 Encounter for annual physical exam Z00.00 [place] [address] 76575- 4159 13 Jul, 2017 [place] [address] 18092- 1602 12 Jul, 2017 Routine gynecological examination Z01.419 ; Dysuria R30.0 and Screening breast examination Z12.31 [place] [address] 472192- 2546 Jul, Generalized anxiety disorder F41.1 and Major depressive disorder, recurrent episode, moderate F33.1 [facility] [id number] [place] [address] 41488- 7077 Jul, [facility] [id number] [place] [address] 65953- 7108 Jun, Generalized anxiety disorder F41.1 and Major depressive disorder, recurrent episode, moderate F33.1 [facility] [id number] [place] [address] 29496- 0249 Jun, Other chronic pain G89.29 [facility] [id number] [place] [address] [id number] May, Dental caries K02.9 [facility] [id number] [place] [address] 58201- 2849 May, Generalized anxiety disorder F41.1 and Major depressive disorder, recurrent episode, moderate F33.1 [facility] [id number] [place] [address] [id number] May, Dental examination Z01.20 [facility] [id number] [place] [address] 26952- 2313 March, [facility] [id number] [place] [address] 04226- 9398 March, Generalized anxiety disorder F41.1 and Major depressive disorder, recurrent episode, moderate F33.1 [facility] [id number] [place] [address] 33431- 2162 March, Encounter for annual physical exam Z00.00 and Other chronic pain G89.29 [facility] [id number] [place] [address] 81369- 8866 Jan, Generalized anxiety disorder F41.1 and Major depressive disorder, recurrent episode, moderate F33.1 [facility] [id number] [place] [address] 12134- 2146 Jan, [facility] [address] [address]- 9422 29 Dec, 2016 Generalized anxiety disorder F41.1 and Major depressive disorder, recurrent episode, moderate F33.1 [place] [address] [address]- 7960 17 Dec, 2016 Generalized anxiety disorder F41.1 and Major depressive disorder, recurrent episode, moderate F33.1 [place] [address] [place] [address] 45791- 2803 Dec, [place] [id number] [place] [address] 56915- 4191 Dec, Generalized anxiety disorder F41.1 and Major depressive disorder, recurrent episode, moderate F33.1 [place] [address] [address]- 0633 Dec, Diarrhea, unspecified type R19.7 ; Irritable bowel syndrome with diarrhea K58.0 and Alkaline phosphatase elevation R74.8 [place] [address] [address]- 7074 Dec, Diarrhea, unspecified type R19.7 and Alkaline phosphatase elevation R74.8 [place] [address] [address]- 4663 Dec, Generalized anxiety disorder F41.1 and Major depressive disorder, recurrent episode, moderate F33.1 [place] [address] [address]- 5158 Dec, Low back pain M54.5 [place] [address] [place] [address] 91895- 1843 Dec, Generalized anxiety disorder F41.1 and Major depressive disorder, recurrent episode, moderate F33.1 [place] [address] [address]- 0386 Dec, Irritable bowel syndrome with diarrhea K58.0 and Diarrhea, unspecified type R19.7 [place] [id number] [place] [address] 79091- 9071 Dec, [place] [address] 55594- 6799 Dec, Generalized anxiety disorder F41.1 and Major depressive disorder, recurrent episode, moderate F33.1 [facility] [id number] [place] [address] 16849 -2189 Nov, Cough R05 ; Viral illness B34.9 and Chronic diarrhea K52.9 [place] [id number] [place] [address] 27447- 9185 Nov, Generalized anxiety disorder F41.1 and Major depressive disorder, recurrent episode, moderate F33.1 [place] [id number] [place] [address] 39530- 9460 Nov, Encounter for Depo-Provera contraception Z30.42 [place] [address] 07919- 3174 Nov, Generalized anxiety disorder F41.1 and Major depressive disorder, recurrent episode, moderate F33.1 [place] [id number] [place] [address] 71863- 9453 Nov, Low back pain M54.5 [place] [id number] [place] [address] 33638- 9565 Oct, Generalized anxiety disorder F41.1 and Major depressive disorder, recurrent episode, moderate F33.1 [place] [id number] [place] [address] 83900- 0402 Sep, Low back pain M54.5 and Other chronic pain G89.29 [place] [address] 86969- 5098 Sep, Generalized anxiety disorder F41.1 and Major depressive disorder, recurrent episode, moderate F33.1 [place] [id number] [place] [address] 55822- 1249 Sep, Encounter for Depo-Provera contraception Z30.42 [facility] [address] [address]- 9891 Jul, [facility] [id number] [place] [address] 71979- 8239 Jul, [facility] [id number] [place] [address] 21841- 6010 Jul, Encounter for immunization Z23 [facility] [id number] [place] [address] 79642- 6435 Jun, Encounter for Depo-Provera contraception Z30.42 [facility] [id number] [place] [address] 34510- 8591 Jun, Generalized anxiety disorder F41.1 and Major depressive disorder, recurrent episode, moderate F33.1 [facility] [id number] [place] [address] 29234- 0801 May, Generalized anxiety disorder F41.1 and Major depressive disorder, recurrent episode, moderate F33.1 [facility] [address] [place] [address] 49552- 9326 Apr, Generalized anxiety disorder F41.1 and Major depressive disorder, recurrent episode, moderate F33.1 [facility] [address] [place] [address] 24311- 5324 March, Encounter for Depo-Provera contraception Z30.42 [facility] [id number] [place] [address] 99540- 0255 March, Generalized anxiety disorder F41.1 and Major depressive disorder, recurrent episode, moderate F33.1 [facility] [id number] [place] [address] 82678- 5834 Jan, Generalized anxiety disorder F41.1 and Major depressive disorder, recurrent episode, moderate F33.1 [facility] [address] [address]- 0991 Jan, [facility] [id number] [place] [address] 18243 -6952 Jan, Oral infection K12.2 [place] [address] 87303- 8571 Jan, Tobacco abuse Z72.0 and Hypokalemia E87.6 [place] [id number] [place] [address] 18277- 8920 Jan, [place] [address] 67659- 0940 Dec, Screening, lipid Z13.220 and Hypokalemia E87.6 [place] [address] 07842- 4873 Dec, Screening, lipid Z13.220 ; Screening for diabetes mellitus Z13.1 and Tobacco abuse Z72.0 [place] [address] 88173- 8956 Dec, Generalized anxiety disorder F41.1 and Major depressive disorder, recurrent episode, moderate F33.1 [place] [address] 65790- 8317 Dec, Routine follow-up Z39.2 ; Encounter for Depo- Provera contraception Z30.42 ; Atyp squam cell of undet signfc cyto smr crvx ( ASC-US) R87.610 and Cervical high risk human papillomavirus (HPV) DNA test positive R87.810 [place] [id number] [place] [address] 72910- 1983 Dec, Generalized anxiety disorder F41.1 and Major depressive disorder, recurrent episode, moderate F33.1 [place] [id number] [place] [address] 20239- 1929 Nov, Unspecified high-risk O09.90 and 39 weeks gestation of Z3A.[address] 67899- 0559 Nov, Unspecified high-risk O09.90 and 38 weeks gestation of Z3A.38 [place] [id number] [place] [address] 84941- 5981 Nov, Unspecified high-risk O09.90 ; Dental infection K04.7 and 37 weeks gestation of Z3A.37 [place] [id number] [place] [address] 20904- 3567 Oct, screening for streptococcus B Z36 ; 36 weeks gestation of Z3A.36 and Breech presentation, not applicable or unspecified fetus O32.1XX0 [place] [id number] [place] [address] 62620- 7801 Oct, Unspecified high-risk O09.90 and 34 weeks gestation of Z3A.34 [place] [id number] [place] [address] 90919- 2258 Oct, 32 weeks gestation of Z3A.32 and Unspecified high- risk O09.90 [place] [id number] [place] [address] 87079- 3830 Sep, Unspecified high-risk O09.90 ; Encounter for immunization Z23 and 30 weeks gestation of Z3A.30 [place] [id number] [place] [address] 77134- 5667 Sep, Generalized anxiety disorder F41.1 and Major depressive disorder, recurrent episode, moderate F33.1 [place] [id number] [place] [address] 48100- 2588 Aug, Unspecified high-risk O09.90 [place] [id number] [place] [address] 57918- 3504 Aug, Unspecified high-risk O09.90 [place] [id number] [place] [address] 04785- 9555 Aug, Dental infection K04.7 [place] [id number] [place] [address] 41946- 0803 Aug, Dysuria R30.0 [place] [address] [place] [address] 42622- 7519 Aug, Dysuria R30.0 [place] [id number] [place] [address] 55243- 5871 Jul, Influenza vaccine administered V04.81 [place] [id number] [place] [address] 89578- 0653 Jul, Unspecified high-risk V23.9 [place] [id number] [place] [address] 76958- 7583 Jul, Unspecified high-risk V23.9 and ASCUS with positive high risk HPV 796.9 [place] [id number] [place] [address] 30336- 6106 Jul, [place] [id number] [place] [address] 58033- 5716 Jun, [place] [id number] [place] [address] 04582- 9321 Jun, Unspecified high-risk V23.9 ; Pap test, as part of routine gynecological examination V76.2 and Screen for STD (sexually transmitted disease) V74.5 [place] [id number] [place] [address] 29767- 1691 Jun, test positive V72.42 ; Unspecified high-risk V23.9 ; UTI in 646.60 and Vomiting 643.90 [place] [address] [place] [address] 10415- 4292 Jun, [place] [id number] [place] [address] 22487- 1275 Jun, [place] [id number] [place] [address] 93865- 1947 Jun, [place] [id number] [place] [address] 42513- 2546 May, [facility] [address] [id number] [place] [address]- 7692 Apr, [facility] [address] [facility] [id number] [place] [address]- 7756 Apr, Absence of menstruation 626.0 [facility] [address] [id number] [place] [address]- 7198 Jan, [facility] [place] [facility] [address] [id number], [place] [address]- 6630 Jan, [facility] [address] [facility] [id number] [place] [address]- 5182 Dec, [facility] [place] [facility] [address] [facility] [id number] [place] [address]- 8581 Dec, [facility] [id number] [place] [address]- 8850 Dec, [facility] [address] [facility] [id number] [place] [address]- 2792 Dec, [facility] [place] [facility] [id number] [place] [address]- 5019 Nov, [facility] [address] [facility] [id number], [place] [address]- 9660 Nov, [facility] [place] [facility] [address] [facility] [id number], [place] [address]- 0713 Nov, [facility] [place] [facility] [address] [facility] [id number], [place] [address]- 1063 Nov, [facility] [place] [facility] [address] [facility] [id number] [place] [address]- 8012 Nov, [facility] [place] [facility] [address] [facility] [id number] 7683 Nov, [facility] [place] [facility] [address] [facility] [id number], [place] [address]- 0783 Nov, [facility] [place] [facility] [address] [id number] [place] [address]- 0985 Nov, [facility] [place] [facility] [address] [id number] [place] 6559 Oct, [facility] [place] [facility] [address] [id number] [place] [address]- 5924 Oct, [facility] [place] [facility] [address] [id number] [place] [address]- 5083 Oct, [facility] [place] [facility] [address] [id number] [place] [address]- 5648 Oct, [facility] [place] [facility] [address] [id number] [place] [address]- 5638 Sep, [facility] [place] [facility] [address] [id number] [place] [address]- 0930 Sep, [facility] [place] [facility] [address] [id number] [place] [address]- 5424 Jul, [facility] [place] [facility] [address] [id number] [place] [address]- 7153 Jul, [facility] [place] [facility] [address] [id number] [place] [address]- 8029 Apr, [facility] [place] [facility] [address] [id number] [place] [address]- 3625 Apr, [facility] [place] [facility] [address] [id number], [place] [address]- 2281 March, [facility] [place] [facility] [address] [id number] [place] [address]- 9186 March, [facility] [place] [facility] [address] [id number] [place] [address]- 1826 March, [facility] [place] [facility] [address] [id number] [place] [address]- 4401 March, [facility] [place] [facility] [address] [id number], [place] [address]- 5258 Nov, [facility] [address] [id number] [place] [address]- 7488 Nov, [facility] [place] [facility] [address] [id number] [place] [address]- 3300 Nov, [facility] [place] [facility] [address] [id number] [place] [address]- 7448 Nov, [facility] [place] [facility] [address] [id number] [place] [address]- 8699 Nov, [facility] [place] [facility] [address] [id number] [place] [address]- 6988 Nov, [facility] [place] [facility] [address] [id number] [place] [address]- 7856 Nov, [facility] [address] [id number] [place] [address]- 6341 Nov, [facility] [place] [facility] [address] [id number] [place] [address]- 8102 Nov, [facility] [address] [id number] [place] [address]- 8190 Nov, [facility] [place] [facility] [address] [id number] [place] [address]- 4540 Nov, [facility] [place] [facility] [address] [id number] [place] [address]- 9537 Oct, [facility] [place] [facility] [address] [id number] [place] [address]- 6634 16 Oct, 2013 [facility] [place] [facility] [address] [id number] [place] [address]- 4546 16 Oct, 2013 [facility] [place] [facility] [address] [id number] [place] [address]- 5387 13 Oct, 2013 [facility] [place] [facility] [address] [id number] [place] [address]- 0807 13 Oct, 2013 [facility] [place] [facility] [address] [id number] [place] [address]- 3890 Oct, [facility] [address] [id number] [place] [address]- 2489 Oct, [facility] [place] [facility] [address] [id number] [place] 3780 Oct, [facility] [place] [facility] [address] [id number] [place] [address]- 9878 Oct, [facility] [place] [facility] [address] [id number] [place] [address]- 1613 Oct, [facility] [place] [facility] [address] [id number] [place] [address]- 2366 Oct, [facility] [place] [facility] [address] [id number] [place] [address]- 5682 Oct, [facility] [place] [facility] [address] [id number] [place] [address]- 0587 Sep, [facility] [place] [facility] [address] [id number] [place] [address]- 5815 Sep, [facility] [place] [facility] [address] [id number] [place] [address]- 9328 Sep, [facility] [place] [facility] [address] [id number] [place] [address]- 3641 Sep, [facility] [place] [facility] [address] [id number] [place] [address]- 4857 Aug, [facility] [place] [facility] [address] [id number] [place] [address]- 1822 Aug, [facility] [place] [facility] [address] [id number] [place] [address]- 0409 Aug, [facility] [place] [facility] [address] [id number] [place] [address]- 2546 Aug, [facility] [place] [facility] [address] [id number] [place] [address]- 7175 Jun, [facility] [address] [id number] [place] [address]- 2471 Jun, [facility] [place] [facility] [address] [id number] [place] [address]- 9596 Apr, [facility] [place] [facility] [address] [id number] [place] [address]- 9653 March, [facility] [place] [facility] [address] [id number] [place] [address]- 1170 Jan, [facility] [address] [id number] [place] [address] 16 Jan, 2013 [facility] [place] [facility] [address] [id number] [place] [address] 15 Jan, 2013 [facility] [address] [id number] [place] [address] Jan, [facility] [place] [facility] [address] [id number] [place] [address] Dec, [facility] [place] [facility] [address] [id number] [place] [address] Dec, [facility] [place] [facility] [address] [id number] [place] [address] Dec, [facility] [place] [facility] [address] [id number] [place] [address] Dec, [facility] [place] [facility] [address] [id number] [place] [address] Oct, [facility] [place] [facility] [address] [id number] [place] [address] Oct, [facility] [place] [facility] [address] [id number] [place] [address] Oct, [facility] [place] [facility] [address] [id number] [place] [address] Oct, [facility] [place] [facility] [address] [id number] [place] [address] Oct, [facility] [place] [facility] [address] [id number] [place] [address] Oct, [facility] [place] [facility] [address] [id number] [place] [address] Sep, [facility] [place] [facility] [address] [id number] [place] [address] Sep, [facility] [place] [facility] [address] [id number] [place] [address] Aug, [facility] [place] [facility] [address] [id number] [place] [address] Aug, [facility] [place] [facility] [address] [id number] [place] [address] Aug, [facility] [place] [facility] [address] [id number] [place] [address] Jul, [facility] [place] [facility] [address] [id number] [place] [address] Jul, [facility] [place] [facility] [address] [id number] [place] [address] Jul, [facility] [place] [facility] [address] [facility] [id number] [place] [address] Jul, [facility] [place] [facility] [address] [id number] [place] [address] Jun, [facility] [place] [facility] [address] [id number] [place] [address] Jun, [facility] [place] [facility] [address] [id number] [place] [address]- [address] Jun, [facility] [place] [facility] [address] [facility] [id number] [place] [address] Jun, [facility] [place] [facility] [address] [id number] [place] [address] Jun, [facility] [place] [facility] [address] [id number] [place] [address] May, [facility] [place] [facility] [address] [id number] [place] [address] May, [facility] [place] [facility] [address] [id number] [place] [address] Apr, [facility] [place] [facility] [address] [id number] [place] [address] Apr, [facility] [address] [id number] [place] [address] Apr, [facility] [address] [id number] [place] [address] March, [facility] [address] [id number] [place] [address] March, [facility] [address] [id number] [place] [address] March, [facility] [facility] [address] [id number] [place] [address] Jan, [facility] [address] [id number] [place] [address] Dec, [facility] [place] [facility] [address] [id number] [place] [address] Dec, [facility] [place] [facility] [address] [id number] [place] [address] Dec, [facility] [place] [facility] [address] [id number] [place] [address] Dec, [facility] [place] [facility] [address] [id number] [place] [address] 19 Dec, 2011 [facility] [place] [facility] [address] [id number] [place] [address] 16 Dec, 2011 [facility] [place] [facility] [address] [id number] [place] [address] Dec, [facility] [address] [id number] [place] [address] 29 Dec, 2011 [facility] [place] [facility] [address] [id number] [place] [address] 28 Dec, 2011 [facility] [address] [id number] [place] [address] 21 Dec, 2011 [facility] [place] [facility] [address] [id number] [place] [address] 4086 13 Dec, 2011 [facility] [address] [id number] [place] [address] Dec, [facility] [address] [id number] [place] [address] Dec, [facility] [address] [id number] [place] [address] Nov, [facility] [address] [id number] [place] [address] Nov, [facility] [address] [id number] [place] [address] Nov, [facility] [address] [facility] [id number] [place] [address] Nov, [facility] [address] [id number] [place] [address] Nov, [facility] [place] [facility] [address] [id number] [place] [address] Nov, [facility] [place] [facility] [address] [id number] [place] [address] Nov, [facility] [place] [facility] [address] [id number] [place] [address] Nov, [facility] [place] [facility] [address] [id number] [place] [address] Oct, [facility] [place] [facility] [address] [id number] [place] [address] Oct, [facility] [place] [facility] [address] [id number] [place] [address] 15 Oct, 2011 [facility] [place] [facility] [address] [id number] [place] [address] 9[address] 15 Oct, 2011 [facility] [place] [facility] [address] [id number] [place] [address] 8971 Oct, [facility] [place] [facility] [address] [id number] [place] [address] 13 Oct, 2011 [facility] [place] [facility] [address] [id number] [place] [address] Oct, [facility] [place] [facility] [address] [id number] [place] [address]- 138[address] 23 Sep, 2011 [facility] [place] [facility] [address] [id number] [place] [address] 18 Sep, 2011 [facility] [place] [facility] [address] [id number] [place] [address]23 18 Sep, 2011 [facility] [place] [facility] [address] [id number] [place] [address] 0[address] 16 Sep, 2011 [facility] [place] [facility] [address] [id number] [place] [address]- 9767 16 Sep, 2011 [facility] [place] [facility] [address] [id number] [place] [address] 08 Sep, 2011 [facility] [place] [facility] [address] [id number] [place] [address]- 1469 Sep, [facility] [place] [facility] [address] [id number] [place] [address] 9215 24 Aug, 2011 [facility] [place] [facility] [address] [id number] [place] [address] 9135 24 Aug, 2011 [facility] [place] [facility] [address] [id number] [place] [address] Jun, [facility] [address] [id number] [place] [address]70 23 Oct, 2010 [facility] [place] [facility] [address] [id number] [place] [address] 19 Oct, 2010 [facility] [place] [facility] [address] [id number] [place] [address] 6[address] 08 Oct, 2010 [facility] [place] [facility] [address] [id number] [place] [address] 9791 16 Dec, 2009 [facility] [place] [facility] [address] [id number] [place] [address] 4687 Dec, [facility] [place] [facility] [address] [id number] [place] [address] 18 Dec, 2009 [facility] [place] [facility] [address] [id number] [place] [address] Dec, [facility] [place] [facility] [address] [id number] [place] [address] Nov, [facility] [place] [facility] [address] [id number] [place] [address]240 29 Oct, 2009 [facility] [place] [facility] [address] [id number] [place] [address]- 5065 17 Oct, 2009 [facility] [place] [facility] [address] [id number], [place] [address] 15 Oct, 2009 [facility] [place] [facility] [address] [id number][place] [address] 15 Oct, 2009 [facility] [place] [facility] [address] [id number] [place] [address] 2547 24 Sep, 2009 [facility] [place] [facility] [address] [id number], [place] [address] 03 Sep, 2009 [facility] [place] [facility] [address] [id number] [place] [address]- 5956 29 Aug, 2009 [facility] [place] [facility] [address] [facility] [id number] [place] [address] Aug, [facility] [address] [facility] [id number], [place] [address] Aug, [facility] [address] [id number], [place] [address] Aug, [facility] [address] [id number], [place] [address] Aug, [facility] [address] [id number], [place] [address] Jun, IMMUNIZATIONS No Known Immunizations SOCIAL HISTORY [...]
--- OUTSIDE RECORDS SUMMARY | 2018-08-17 18:16 | XMS REPORT ---
Author Author LARRY HILDA Organization [facility] Address [address] [place] [address] Care Team Providers Care Distance Learning Program Coordinator Name Role Phone ELISEHILDA NASH Unavailable PROBLEMS Type Condition ICD9-CM Code QWG79-QC Code Onset Dates Condition Status SNOMED Code Problem Major depressive disorder, recurrent episode, moderate F33.1 Active 321034104 Problem History of methamphetamine abuse Z87.898 Active 550165267 Problem Generalized anxiety disorder F41.1 Active 86645968 Problem Cervical high risk HPV (human papillomavirus) test positive R87.810 Active 212951929 Problem Atyp squam cell of undet signfc cyto smr crvx (ASC-US) R87.610 Active 490580455 Problem BMI 39.0-39.9,adult Z68.39 Active 755949306 Problem Recurrent major depressive disorder, in partial remission F33.41 Active 50092195 Problem Irritable bowel syndrome with diarrhea K58.0 Active 174947436 Problem Other chronic pain G89.29 Active 00155330 Problem Anxiety F41.9 Active 06535200 Problem Alkaline phosphatase elevation R74.8 Active 949358874 ALLERGIES No Information ENCOUNTERS Encounter Location Date Diagnosis [facility] [id number] [place] [address] 05326- 2035 May, [facility] [id number] [place] [address] 10487- 9407 Apr, [facility] [id number] [place] [address] 19021- 1262 March, Other chronic pain G89.29 [facility] [id number] [place] [address] 10257- 0201 March, [facility] [id number] [place] [address] 59228- 6217 March, Generalized anxiety disorder F41.1 and Major depressive disorder, recurrent episode, moderate F33.1 [facility] [id number] [place] [address] 36849- 8971 Jan, Encounter for Depo-Provera contraception Z30.42 [facility] [id number] [place] [address] 82384- 6800 Jan, Generalized anxiety disorder F41.1 and Major depressive disorder, recurrent episode, moderate F33.1 [facility] [id number] [place] [address] 97770- 5256 Dec, Anxiety F41.9 and Recurrent major depressive disorder, in partial remission F33.41 [facility] [id number] [place] [address] 89797- 3982 Nov, [facility] [id number] [place] [address] 11537- 2472 Nov, Other chronic pain G89.29 ; Encounter for surveillance of injectable contraceptive Z30.42 ; BMI 39.0-39.9,adult Z68.39 and Encounter for Depo-Provera contraception Z30.42 [facility] [id number] [place] [address] 22421- 9578 Sep, Anxiety F41.9 and Recurrent major depressive disorder, in partial remission F33.41 [facility] [id number] [place] [address] 35182- 4711 Aug, Generalized anxiety disorder F41.1 and Major depressive disorder, recurrent episode, moderate F33.1 [facility] [id number] [place] [address] 77898- 4696 Aug, [facility] [id number] [place] [address] 21865- 8414 Aug, Anxiety F41.9 and Major depressive disorder, recurrent episode, moderate F33.1 [facility] [id number] [place] [address] 35037- 5855 Jul, Encounter for immunization Z23 [facility] [id number] [place] [address] 70199- 9263 19 Jul, 2017 [facility] [id number] [place] [address] 94530- 3438 19 Jul, 2017 [facility] [id number] [place] [address] 66004- 3932 14 Jul, 2017 Alkaline phosphatase elevation R74.8 [facility] [id number] [place] [address] 99714- 3246 13 Jul, 2017 Encounter for annual physical exam Z00.00 [facility] [id number] [place] [address] 00689- 8593 13 Jul, 2017 [facility] [id number] [place] [address] 05478- 2087 12 Jul, 2017 Routine gynecological examination Z01.419 ; Dysuria R30.0 and Screening breast examination Z12.31 [facility] [id number] [place] [address] 39689- 7958 12 Jul, 2017 Generalized anxiety disorder F41.1 and Major depressive disorder, recurrent episode, moderate F33.1 [facility] [id number] [place] [address] 81604- 5774 08 Jul, 2017 [facility] [id number] [place] [address] 26354- 0803 Jun, Generalized anxiety disorder F41.1 and Major depressive disorder, recurrent episode, moderate F33.1 [facility] [id number] [place] [address] 66711- 3006 09 Jun, 2017 Other chronic pain G89.29 [facility] [id number] [place] [address] [id number] May, Dental caries K02.9 [facility] [id number] [place] [address] 34585- 3429 May, Generalized anxiety disorder F41.1 and Major depressive disorder, recurrent episode, moderate F33.1 [facility] [id number] [id number] May, Dental examination Z01.20 [facility] [address] [address]- 6699 March, [facility] [address] [address]- 7846 March, Generalized anxiety disorder F41.1 and Major depressive disorder, recurrent episode, moderate F33.1 [facility] [address] [address]- 2848 March, Encounter for annual physical exam Z00.00 and Other chronic pain G89.29 [facility] [address] [address]- 0897 Jan, Generalized anxiety disorder F41.1 and Major depressive disorder, recurrent episode, moderate F33.1 [facility] [address] [address]- 5711 Jan, [facility] [address] [address]- 8123 Dec, Generalized anxiety disorder F41.1 and Major depressive disorder, recurrent episode, moderate F33.1 [facility] [address] [address]- 0083 Dec, Generalized anxiety disorder F41.1 and Major depressive disorder, recurrent episode, moderate F33.1 [facility] [address] [address]- 6030 Dec, [facility] [address] [address]- 9627 Dec, Generalized anxiety disorder F41.1 and Major depressive disorder, recurrent episode, moderate F33.1 [facility] [id number] [address]- 9472 Dec, Diarrhea, unspecified type R19.7 ; Irritable bowel syndrome with diarrhea K58.0 and Alkaline phosphatase elevation R74.8 [facility] [id number] [place] [address] 42712- 9032 Dec, Diarrhea, unspecified type R19.7 and Alkaline phosphatase elevation R74.8 [facility] [id number] [place] [address] 52184- 6023 Dec, Generalized anxiety disorder F41.1 and Major depressive disorder, recurrent episode, moderate F33.1 [facility] [address] 14352- 4527 Dec, Low back pain M54.5 [facility] [address] 99675- 0280 Dec, Generalized anxiety disorder F41.1 and Major depressive disorder, recurrent episode, moderate F33.1 [facility] [address] 99335- 5903 Dec, Irritable bowel syndrome with diarrhea K58.0 and Diarrhea, unspecified type R19.7 [facility] [id number] [place] [address] 29140- 5593 Dec, [facility] [address] 12526- 3543 Dec, Generalized anxiety disorder F41.1 and Major depressive disorder, recurrent episode, moderate F33.1 [facility] [id number] [place] [address] 00670 -7545 Nov, Cough R05 ; Viral illness B34.9 and Chronic diarrhea K52.9 [facility] [id number] [place] [address] 72137- 0915 Nov, Generalized anxiety disorder F41.1 and Major depressive disorder, recurrent episode, moderate F33.1 [facility] [address] 00460- 8898 Nov, Encounter for Depo-Provera contraception Z30.42 [facility] [address] 57000- 1902 Nov, Generalized anxiety disorder F41.1 and Major depressive disorder, recurrent episode, moderate F33.1 [facility] [id number] [place] [address] 49465- 8984 Nov, Low back pain M54.5 [facility] [id number] [place] [address] 00620- 0420 Oct, Generalized anxiety disorder F41.1 and Major depressive disorder, recurrent episode, moderate F33.1 [facility] [id number] [place] [address] 22654- 7592 Sep, Low back pain M54.5 and Other chronic pain G89.29 [facility] [address] 90728- 9521 Sep, Generalized anxiety disorder F41.1 and Major depressive disorder, recurrent episode, moderate F33.1 [facility] [id number] [place] [address] 33309- 6950 Sep, Encounter for Depo-Provera contraception Z30.42 [facility] [id number] [place] [address] 23537- 8710 Jul, [facility] [id number] [place] [address] 41038- 6411 Jul, [facility] [id number] [place] [address] 43127- 1967 Jul, Encounter for immunization Z23 [facility] [address] 99302- 8530 Jun, Encounter for Depo-Provera contraception Z30.42 [facility] [address] 74757- 2754 Jun, Generalized anxiety disorder F41.1 and Major depressive disorder, recurrent episode, moderate F33.1 [facility] [id number] [place] [address] 25982- 1558 May, Generalized anxiety disorder F41.1 and Major depressive disorder, recurrent episode, moderate F33.1 [facility] [id number] [place] [address] 56901- 2260 Apr, Generalized anxiety disorder F41.1 and Major depressive disorder, recurrent episode, moderate F33.1 [facility] [id number] [place] [address] 60068- 1878 March, Encounter for Depo-Provera contraception Z30.42 [facility] [facility] [address] 64632- 3385 March, Generalized anxiety disorder F41.1 and Major depressive disorder, recurrent episode, moderate F33.[address] 15777- 2899 Jan, Generalized anxiety disorder F41.1 and Major depressive disorder, recurrent episode, moderate F33.[address] 77004- 2908 Jan, [facility] [address] 38714 -3470 Jan, Oral infection K12.[address] 95293- 7385 Jan, Tobacco abuse Z72.0 and Hypokalemia E87.[address] 78885- 1824 Jan, [facility] [address] 02628- 1219 Dec, Screening, lipid Z13.220 and Hypokalemia E87.[address] 79515- 4385 Dec, Screening, lipid Z13.220 ; Screening for diabetes mellitus Z13.1 and Tobacco abuse Z72.[address] 14467- 6560 Dec, Generalized anxiety disorder F41.1 and Major depressive disorder, recurrent episode, moderate F33.1 [facility] [id number] [place] [address] 09264- 1176 03 Dec, 2015 Routine follow-up Z39.2 ; Encounter for Depo- Provera contraception Z30.42 ; Atyp squam cell of undet signfc cyto smr crvx ( ASC-US) R87.610 and Cervical high risk human papillomavirus (HPV) DNA test positive R87.810 [facility] [address] 05534- 1563 08 Dec, 2015 Generalized anxiety disorder F41.1 and Major depressive disorder, recurrent episode, moderate F33.[address] 30379- 9828 Nov, Unspecified high-risk O09.90 and 39 weeks gestation of Z3A.[address] 49916- 5232 Nov, Unspecified high-risk O09.90 and 38 weeks gestation of Z3A.38 [id number] [place] [address] 23647- 6395 Nov, Unspecified high-risk O09.90 ; Dental infection K04.7 and 37 weeks gestation of Z3A.37 [place] [id number] [place] [address] 75190- 4692 Oct, screening for streptococcus B Z36 ; 36 weeks gestation of Z3A.36 and Breech presentation, not applicable or unspecified fetus O32.1XX0 [facility] [facility] [id number] [place] [address] 98709- 0065 Oct, Unspecified high-risk O09.90 and 34 weeks gestation of Z3A.[address] 10348- 3469 Oct, 32 weeks gestation of Z3A.32 and Unspecified high- risk O09.[id number] [place] [address] 56915- 2441 Sep, Unspecified high-risk O09.90 ; Encounter for immunization Z23 and 30 weeks gestation of Z3A.30 [facility] [id number] [place] [address] 03266- 0908 Sep, Generalized anxiety disorder F41.1 and Major depressive disorder, recurrent episode, moderate F33.1 [place] [facility] [address] 30099- 9787 Aug, Unspecified high-risk O09.90 [facility] [facility] [address] 38593- 3478 Aug, Unspecified high-risk O09.90 [facility] [facility] [address] 59421- 4287 Aug, Dental infection K04.7 [facility] [address] 75962- 2376 Aug, Dysuria R30.0 [place] [facility] [address] 48494- 8506 Aug, Dysuria R30.0 [facility] [id number] [place] [address] 73053- 9922 Jul, Influenza vaccine administered V04.81 [facility] [id number] [place] [address] 51581- 6889 Jul, Unspecified high-risk V23.9 [facility] [id number] [place] [address] 90116- 6522 Jul, Unspecified high-risk V23.9 and ASCUS with positive high risk HPV 796.9 [facility] [id number] [place] [address] 16155- 9593 Jul, [facility] [id number] [place] [address] 59387- 5989 Jun, [facility] [address] [address]- 8338 Jun, Unspecified high-risk V23.9 ; Pap test, as part of routine gynecological examination V76.2 and Screen for STD (sexually transmitted disease) V74.5 [facility] [address], [place] [address]- 6519 Jun, test positive V72.42 ; Unspecified high-risk V23.9 ; UTI in 646.60 and Vomiting 643.90 [facility] [address], [place] [address]- 9330 Jun, [facility] [id number] [place] [address] 25427- 0228 Jun, [facility] [id number] [place] [address] 06661- 9966 Jun, [facility] [id number] [place] [address] 06335- 7306 May, [facility] [id number] [place] [address] 55620- 9375 Apr, [facility] [id number] [place] [address] 80517- 1701 Apr, Absence of menstruation 626.0 [facility] [address], [place] [address]- 5994 Jan, [facility] [address] [address]- 7662 Jan, [facility] [address] [place] [address] 84057- 2353 Dec, [facility] [id number] [place] [address] [id number]- 7306 Dec, [facility] [address], [place] [address]- 8004 Dec, [facility] [place] [facility] [address] [id number] [place] [address]- 2216 Dec, [facility] [place] [facility] [address] [id number] [place] [address]- 5690 Nov, [facility] [place] [facility] [address] [id number] [place] [address]- 9656 Nov, [facility] [place] [facility] [address] [id number] [place] [address]- 1144 Nov, [facility] [place] [facility] [address] [id number] [place] [address]- 4136 Nov, [facility] [place] [facility] [address] [id number] [place] [address]- 2217 Nov, [facility] [place] [facility] [address] [id number] [place] [address]- 7572 Nov, [facility] [place] [facility] [address] [id number] [place] [address]- 7394 Nov, [facility] [place] [facility] [address] [id number] [place] [address]- 2154 Nov, [facility] [place] [facility] [address] [id number] [place] [address]- 2620 Oct, [facility] [place] [facility] [address] [id number] [place] [address]- 5562 Oct, [facility] [place] [facility] [address] [id number] [place] [address]- 9790 Oct, [facility] [place] [facility] [address] [id number] [place] [address]- 6267 Oct, [facility] [place] [facility] [address] [id number] [place] [address]- 1874 Sep, [facility] [place] [facility] [address] [id number] [place] [address]- 1516 Sep, [facility] [place] [facility] [address] [id number] [place] [address]- 8854 Jul, [facility] [place] [facility] [address] [id number] [place] [address]- 2261 Jul, [facility] [place] [facility] [address] [id number] [place] [address]- 0437 Apr, [facility] [place] [facility] [address] [id number] [place] [address]- 2019 Apr, [facility] [place] [facility] [address] [id number] [place] [address]- 3024 March, [facility] [place] [facility] [address] [id number] [place] [address]- 8143 March, [facility] [place] [facility] [address] [id number] [place] [address]- 3665 March, [facility] [place] [facility] [address] [id number] [place] [address]- 8821 March, [facility] [place] [facility] [address] [id number] [place] [address]- 1586 Nov, [facility] [place] [facility] [address] [id number] [place] [address]- 9529 Nov, [facility] [place] [facility] [address] [id number] [place] [address]- 8301 Nov, [facility] [place] [facility] [address] [id number], [place] [address]- 6094 Nov, [facility] [place] [facility] [address] [id number], [place] [address]- 0023 Nov, [facility] [place] [facility] [address] [id number] [place] [address]- 7732 Nov, [facility] [place] [facility] [address] [id number] [place] [address]- 4320 Nov, [facility] [place] [facility] [address] [id number] [place] [address]- 9730 Nov, [facility] [place] [facility] [address] [id number] [place] [address]- 5069 20 Nov, 2013 [facility] [address] [id number] [place] [address]- 0546 16 Nov, 2013 [facility] [address] [id number] [place] 9556 16 Nov, 2013 [facility] [address] [id number] [place] [address]- 6973 20 Oct, 2013 [facility] [place] [facility] [address] [id number] [place] [address]- 0289 16 Oct, 2013 [facility] [address] [id number] [place] [address]- 1370 16 Oct, 2013 [facility] [address] [id number] [place] [address]- 7763 13 Oct, 2013 [facility] [address] [id number] [place] [address]- 6487 13 Oct, 2013 [facility] [address] [id number] [place] [address]- 8233 12 Oct, 2013 [facility] [address] [id number] [place] [address]- 3036 11 Oct, 2013 [facility] [address] [id number] [place] [address]- 5310 11 Oct, 2013 [facility] [place] [facility] [address] [id number] [place] [address]- 9131 10 Oct, 2013 [facility] [place] [facility] [address] [id number] [place] [address]- 6222 10 Oct, 2013 [facility] [place] [facility] [address] [id number] [place]- 5831 09 Oct, 2013 [facility] [place] [facility] [address] [id number] [place]- 2854 09 Oct, 2013 [facility] [place] [facility] [address] [id number] [place] 4926 Sep, [facility] [place] [facility] [address] [id number] [place] [address]- 0599 Sep, [facility] [place] [facility] [address] [id number] [place] [address]- 6609 Sep, [facility] [place] [facility] [address] [id number] [place] [address]- 3433 Sep, [facility] [place] [facility] [address] [id number] [place] [address]- 8460 Aug, [facility] [address] [id number] [place] [address]- 5024 Aug, [facility] [place] [facility] [address] [id number] [place] [address]- 6336 Aug, [facility] [address] [id number] [place] [address]- 2436 Aug, [facility] [address] [id number] [place] [address]- 5411 Jun, [facility] [place] [facility] [address] [id number] [place] [address]- 7144 Jun, [facility] [place] [facility] [address] [id number] [place] [address]- 6081 Apr, [facility] [place] [facility] [address] [id number] [place] [address]- 3996 March, [facility] [place] [facility] [address] [id number], [place] [address]- 1788 17 Jan, 2013 [facility] [place] [facility] [address] [id number] [place] [address]- 5796 16 Jan, 2013 [facility] [place] [facility] [address] [id number] [place] [address]- 5004 15 Jan, 2013 [facility] [place] [facility] [address] [id number] [place] [address]- 8444 11 Jan, 2013 [facility] [place] [facility] [address] [id number], [place] [address] Dec, [facility] [place] [facility] [address] [id number] [place] [address] Dec, [facility] [place] [facility] [address] [id number] [place] [address] Dec, [facility] [place] [facility] [address] [facility] [id number] [place] [address] Dec, [facility] [place] [facility] [address] [id number] [place] [address] Oct, [facility] [place] [facility] [address] [id number] [place] [address] Oct, [facility] [place] [facility] [address] [facility] [id number] [place] [address] Oct, [facility] [place] [facility] [address] [facility] [id number] [place] [address] Oct, [facility] [place] [facility] [address] [facility] [id number] [place] [address] Oct, [facility] [place] [facility] [address] [facility] [id number] [place] [address] Oct, [facility] [place] [facility] [address] [facility] [id number] [place] [address] Sep, [facility] [place] [facility] [address] [facility] [id number], [place] [address] Sep, [facility] [place] [facility] [address] [facility] [id number], [place] [address] Aug, [facility] [place] [facility] [address] [facility] [id number] [place] [address] Aug, [facility] [place] [facility] [address] [facility] [id number], [place] [address] Aug, [facility] [place] [facility] [address] [facility] [id number] [place] [address] Jul, [facility] [place] [facility] [address] [id number] [place] [address] Jul, [facility] [place] [facility] [address] [id number] [place] [address] Jul, [facility] [place] [facility] [address] [id number] [place] [address] Jul, [facility] [place] [facility] [address] [id number] [place] [address]60 Jun, [facility] [place] [facility] [address] [id number] [place] [address] Jun, [facility] [place] [facility] [address] [id number] [place] [address] Jun, [facility] [place] [facility] [address] [id number] [place] [address] Jun, [facility] [place] [facility] [address] [id number] [place] [address] Jun, [facility] [place] [facility] [address] [id number] [place] [address] May, [facility] [place] [facility] [address] [id number] [place] [address] May, [facility] [place] [facility] [address] [id number] [place] [address] Apr, [facility] [place] [facility] [address] [id number] [place] [address] Apr, [facility] [place] [facility] [address] [id number] [place] [address] Apr, [facility] [place] [facility] [address] [id number] [place] [address] March, [facility] [place] [facility] [address] [id number] [place] [address] March, [facility] [place] [facility] [address] [id number] [place] [address] March, [facility] [place] [facility] [address] [id number] [place] [address] Jan, [facility] [place] [facility] [address] [id number] [place] [address] 26 Dec, 2011 [facility] [place] [facility] [address] [id number] [place] [address] 23 Dec, 2011 [facility] [place] [facility] [address] [id number] [place] [address] 22 Dec, 2011 [facility] [place] [facility] [address] [id number] [place] [address] 21 Dec, 2011 [facility] [place] [facility] [address] [id number] [place] [address] 19 Dec, 2011 [facility] [place] [facility] [address] [id number] [place] [address] 16 Dec, 2011 [facility] [place] [facility] [address] [id number] [place] [address] Dec, [facility] [place] [facility] [address] [id number] [place] [address] 29 Dec, 2011 [facility] [place] [facility] [address] [id number] [place] [address] 28 Dec, 2011 [facility] [place] [facility] [address] [id number] [place] [address] Dec, [facility] [place] [facility] [address] [id number] [place] [address] 13 Dec, 2011 [facility] [place] [facility] [address] [id number] [place] [address] 11 Dec, 2011 [facility] [place] [facility] [address] [id number] [place] [address] 10 Dec, 2011 [facility] [place] [facility] [address] [id number] [place] [address] 30 Nov, 2011 [facility] [place] [facility] [address] [id number] [place] [address] Nov, [facility] [address] [id number] [place] [address] Nov, [facility] [address] [id number] [place] [address] Nov, [facility] [address] [id number] [place] [address] Nov, [facility] [address] [id number] [place] [address] Nov, [facility] [address] [id number] [place] [address] Nov, [facility] [address] [id number] [place] [address] Nov, [facility] [address] [id number] [place] [address] Oct, [facility] [address] [id number] [place] [address] Oct, [facility] [address] [id number] [place] [address] Oct, [facility] [address] [id number] [place] [address] 15 Oct, 2011 [facility] [address] [id number] [place] [address] Oct, [facility] [address] [id number] [place] [address] Oct, [facility] [address] [id number] [place] [address] 07 Oct, 2011 [facility] [address] [id number] [place] [address] Sep, [facility] [address] [id number] [place] [address] Sep, [facility] [place] [facility] [address] [id number] [place] [address] Sep, [facility] [place] [facility] [address] [id number] [place] [address] Sep, [facility] [place] [facility] [address] [id number] [place] [address] 16 Sep, 2011 [facility] [place] [facility] [address] [id number] [place] [address] Sep, [facility] [place] [facility] [address] [id number] [place] [address] Sep, [facility] [place] [facility] [address] [id number] [place] [address] Aug, [facility] [place] [facility] [address] [id number] [place] [address] Aug, [facility] [place] [facility] [address] [id number] [place] [address] Jun, [facility] [place] [facility] [address] [id number] [place] [address] Oct, [facility] [place] [facility] [address] [id number] [place] [address] Oct, [facility] [place] [facility] [address] [id number] [place] [address] Oct, [facility] [place] [facility] [address] [id number], [place] [address] Dec, [facility] [place] [facility] [address] [id number] [place] [address]- [address] Dec, [facility] [place] [facility] [address] [id number] [place] [address] 18 Dec, 2009 [facility] [place] [facility] [address] [id number] [place] [address]- 1577 Dec, [facility] [place] [facility] [id number] [place] [address] Nov, [facility] [id number] [place] [address] 29 Oct, 2009 [facility] [id number] [address] Oct, [facility] [id number] [place] [address] Oct, [facility] [id number], [place] [address] Oct, [facility] [id number] [place] [address] Sep, [facility] [id number], [place] [address] Sep, [facility] [id number] [place] [address] Aug, [facility] [id number], [place] [address] Aug, [facility] [id number], [place] [address] Aug, [facility] [id number] [place] [address] Aug, [facility] [id number], [place] [address] Aug, [facility] [id number], [place] [address] Jun, IMMUNIZATIONS No Known Immunizations SOCIAL HISTORY Never Assessed REASON FOR VISIT lucian/Jerome MCDANIEL PLAN OF CARE Activity Details Follow Up 3 Months Reason: VITAL SIGNS Height 68 in 2017-09-22 Weight 257.8 lbs 2017-09-22 Heart Rate 98 bpm 2017-09-22 Respiratory Rate 20 2017-09-22 BMI 39.19 kg/m2 2017-09-22 Blood pressure systolic 130 mmHg 2017-09-22 Blood pressure diastolic 82 mmHg 2017-09-22 MEDICATIONS Medication Instructions Dosage Frequency Start Date End Date Duration Status Viibryd 20 MG Orally Once a day 1 tablet with food 24h 30 days Active Tizanidine HCl 4 MG Orally Three times a day 1 tablet as needed 8h 30 Active HydrOXYzine HCl 10 MG Orally twice a day as needed for anxiety 1 tablet Aug, 30 days Active RESULTS No Results PROCEDURES No Known procedures INSTRUCTIONS MEDICATIONS ADMINISTERED No Known Medications MEDICAL (GENERAL) HISTORY Type Description Date Medical History Tobacco abuse Surgical History tonsillectomy age 15 Surgical History cholecystectomy 2009 Surgical History colonoscopy 3 times Surgical History 4 natural births Hospitalization History Hospitalization for surgery only
--- OUTSIDE RECORDS SUMMARY | 2018-08-17 18:17 | XMS REPORT ---
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 Name Role Phone FABY GONZALEZ Unavailable PROBLEMS Type Condition ICD9-CM Code HUU86-KU Code Onset Dates Condition Status SNOMED Code Problem Major depressive disorder, recurrent episode, moderate F33.1 Active 801464350 Problem History of methamphetamine abuse Z87.898 Active 476252075 Problem Generalized anxiety disorder F41.1 Active 57633058 Problem Cervical high risk HPV (human papillomavirus) test positive R87.810 Active 882293976 Problem Atyp squam cell of undet signfc cyto smr crvx (ASC-US) R87.610 Active 191982888 Problem BMI 39.0-39.9,adult Z68.39 Active 239459477 Problem Recurrent major depressive disorder, in partial remission F33.41 Active 00000301 Problem Irritable bowel syndrome with diarrhea K58.0 Active 425049017 Problem Other chronic pain G89.29 Active 70940126 Problem Anxiety F41.9 Active 52838739 Problem Alkaline phosphatase elevation R74.8 Active 595410208 ALLERGIES No Information ENCOUNTERS Encounter Location Date Diagnosis [place] [id number] [place] [address] 52767- 4976 March, [facility], [place] [id number] [place] [address] 42208- 1371 Jan, Encounter for Depo-Provera contraception Z30.42 [facility], [place] [id number] [place] [address] 11266- 8494 Jan, Generalized anxiety disorder F41.1 and Major depressive disorder, recurrent episode, moderate F33.1 [place] [id number] [place] [address] 29204- 2613 Dec, Anxiety F41.9 and Recurrent major depressive disorder, in partial remission F33.41 [facility], [place] [id number] [place] [address] 74791- 7398 Nov, [place] [id number] [place] [address] 97760- 8240 Nov, Other chronic pain G89.29 ; Encounter for surveillance of injectable contraceptive Z30.42 ; BMI 39.0-39.9,adult Z68.39 and Encounter for Depo-Provera contraception Z30.42 [place] [id number] [place] [address] 92468- 7251 Sep, Anxiety F41.9 and Recurrent major depressive disorder, in partial remission F33.41 [place] [id number] [place] [address] 61391- 7923 Aug, Generalized anxiety disorder F41.1 and Major depressive disorder, recurrent episode, moderate F33.1 [place] [id number] [place] [address] 34768- 9676 Aug, [place] [id number] [place] [address] 23092- 8046 Aug, Anxiety F41.9 and Major depressive disorder, recurrent episode, moderate F33.1 [place] [id number] [place] [address] 70768- 0629 25 Jul, 2017 Encounter for immunization Z23 [place] [id number] [place] [address] 37165- 4447 19 Jul, 2017 [place] [id number] [place] [address] 87841- 8916 19 Jul, 2017 [place] [id number] [place] [address] 59488- 8681 14 Jul, 2017 Alkaline phosphatase elevation R74.8 [place] [id number] [place] [address] 09124- 6063 13 Jul, 2017 Encounter for annual physical exam Z00.00 [place] [id number] [address] 1156 13 Jul, 2017 [facility], [place] [id number] [place] [address] 73916- 8330 12 Jul, 2017 Routine gynecological examination Z01.419 ; Dysuria R30.0 and Screening breast examination Z12.31 [facility], [place] [id number] [place] [address] 17032- 7172 12 Jul, 2017 Generalized anxiety disorder F41.1 and Major depressive disorder, recurrent episode, moderate F33.1 [facility], [place] [id number] [place] [address] 44578- 1148 08 Jul, 2017 [facility], [place] [id number] [place] [address] 01504- 0241 Jun, Generalized anxiety disorder F41.1 and Major depressive disorder, recurrent episode, moderate F33.1 [place] [id number] [place] [address] 26489- 8368 Jun, Other chronic pain G89.29 [facility] [id number] [place] [address] [id number] May, Dental caries K02.9 [place] [id number] [place] [address] 85595- 7831 10 May, 2017 Generalized anxiety disorder F41.1 and Major depressive disorder, recurrent episode, moderate F33.1 [facility] [id number] [place] [address] [id number] May, 2017 Dental examination Z01.20 [facility], [place] [address] [address] 3666 March, [facility], [place] [id number] [place] [address] 00762- 2944 March, Generalized anxiety disorder F41.1 and Major depressive disorder, recurrent episode, moderate F33.1 [facility], [place] [address] [address]- 3156 March, Encounter for annual physical exam Z00.00 and Other chronic pain G89.29 [facility], [place] [id number] [place] [address] 90029- 6397 Jan, Generalized anxiety disorder F41.1 and Major depressive disorder, recurrent episode, moderate F33.1 [facility], [place] [id number] [place] [address] 91504- 1592 Jan, [facility], [place] [id number] [place] [address] 85061- 7999 Dec, Generalized anxiety disorder F41.1 and Major depressive disorder, recurrent episode, moderate F33.1 [place] [id number] [place] [address] 11694- 9960 Dec, Generalized anxiety disorder F41.1 and Major depressive disorder, recurrent episode, moderate F33.1 [place] [id number] [place] [address] 77462- 2506 Dec, [facility], [place] [id number] [place] [address] 81190- 5079 Dec, Generalized anxiety disorder F41.1 and Major depressive disorder, recurrent episode, moderate F33.1 [place] [id number] [place] [address] 76666- 4008 15 Dec, 2016 Diarrhea, unspecified type R19.7 ; Irritable bowel syndrome with diarrhea K58.0 and Alkaline phosphatase elevation R74.8 [place] [id number] [place] [address] 03583- 4504 Dec, Diarrhea, unspecified type R19.7 and Alkaline phosphatase elevation R74.8 [place] [id number] [place] [address] 83109- 8218 Dec, Generalized anxiety disorder F41.1 and Major depressive disorder, recurrent episode, moderate F33.1 [facility], [place] [address] [address]- 2920 Dec, Low back pain M54.5 [facility], [place] [id number] [place] [address] 37231- 1546 Dec, Generalized anxiety disorder F41.1 and Major depressive disorder, recurrent episode, moderate F33.1 [place] [id number] [place] [address] 09728- 1123 Dec, Irritable bowel syndrome with diarrhea K58.0 and Diarrhea, unspecified type R19.7 [place] [address] 20297- 7845 Dec, [place] [address] 68438- 9248 Dec, Generalized anxiety disorder F41.1 and Major depressive disorder, recurrent episode, moderate F33.1 [facility] [id number] [place] [address] 27776 -2091 Nov, Cough R05 ; Viral illness B34.9 and Chronic diarrhea K52.9 [place] [id number] [place] [address] 31836- 7498 Nov, Generalized anxiety disorder F41.1 and Major depressive disorder, recurrent episode, moderate F33.1 [place] [address] [id number] [place] [address] 94258- 6880 Nov, Encounter for Depo-Provera contraception Z30.42 [place] [id number] [place] [address] 80880- 8322 Nov, Generalized anxiety disorder F41.1 and Major depressive disorder, recurrent episode, moderate F33.1 [place] [address] [id number] [place] [address] 22867- 0799 Nov, Low back pain M54.5 [place] [address] 33108- 7140 Oct, Generalized anxiety disorder F41.1 and Major depressive disorder, recurrent episode, moderate F33.1 [place] [address] [place] [id number] [place] [address] 10394- 4424 Sep, Low back pain M54.5 and Other chronic pain G89.29 [facility], [place] [id number] [place] [address] 20416- 9010 16 Sep, 2016 Generalized anxiety disorder F41.1 and Major depressive disorder, recurrent episode, moderate F33.1 [facility], [place] [id number] [place] [address] 30604- 2073 Sep, Encounter for Depo-Provera contraception Z30.42 [facility], [place] [id number] [place] [address] 21239- 0956 Jul, [facility], [place] [id number] [place] [address] 02837- 3515 Jul, [facility], [place] [id number] [place] [address] 16346- 7606 Jul, Encounter for immunization Z23 [facility], [place] [id number] [place] [address] 83153- 6938 Jun, Encounter for Depo-Provera contraception Z30.42 [facility], [place] [id number] [place] [address] 65594- 4716 Jun, Generalized anxiety disorder F41.1 and Major depressive disorder, recurrent episode, moderate F33.1 [facility], [place] [id number] [place] [address] 76310- 1341 May, Generalized anxiety disorder F41.1 and Major depressive disorder, recurrent episode, moderate F33.1 [facility], [place] [id number] [place] [address] 21921- 5831 Apr, Generalized anxiety disorder F41.1 and Major depressive disorder, recurrent episode, moderate F33.1 [place] [id number] [place] [address] 52325- 1244 March, Encounter for Depo-Provera contraception Z30.42 [facility], [place] [id number] [place] [address] 30326- 8672 March, Generalized anxiety disorder F41.1 and Major depressive disorder, recurrent episode, moderate F33.1 [place] [id number] [place] [address] 62116- 1016 Jan, Generalized anxiety disorder F41.1 and Major depressive disorder, recurrent episode, moderate F33.1 [place] [id number] [place] [address] 98085- 4063 Jan, [facility] [id number] [place] [address] 59730 -5097 Jan, Oral infection K12.2 [place] [id number] [place] [address] 08508- 7997 Jan, Tobacco abuse Z72.0 and Hypokalemia E87.6 [place] [address] [id number] [place] [address] 01626- 0072 Jan, [place] [address] 26610- 2347 Dec, Screening, lipid Z13.220 and Hypokalemia E87.6 [place] [id number] [place] [address] 91521- 7471 Dec, Screening, lipid Z13.220 ; Screening for diabetes mellitus Z13.1 and Tobacco abuse Z72.0 [place] [id number] [place] [address] 40336- 2443 Dec, Generalized anxiety disorder F41.1 and Major depressive disorder, recurrent episode, moderate F33.1 [place] [id number] [place] [address] 19537- 7674 03 Dec, 2015 Routine follow-up Z39.2 ; Encounter for Depo- Provera contraception Z30.42 ; Atyp squam cell of undet signfc cyto smr crvx ( ASC-US) R87.610 and Cervical high risk human papillomavirus (HPV) DNA test positive R87.810 [place] [address] [place] [address] 17483- 3855 Dec, Generalized anxiety disorder F41.1 and Major depressive disorder, recurrent episode, moderate F33.1 [place] [id number] [place] [address] 18967- 7821 Nov, Unspecified high-risk O09.90 and 39 weeks gestation of Z3A.39 [place] [id number] [place] [address] 96429- 5506 Nov, Unspecified high-risk O09.90 and 38 weeks gestation of Z3A.38 [place] [address] 54914- 5980 Nov, Unspecified high-risk O09.90 ; Dental infection K04.7 and 37 weeks gestation of Z3A.37 [place] [id number] [place] [address] 08747- 5345 Oct, screening for streptococcus B Z36 ; 36 weeks gestation of Z3A.36 and Breech presentation, not applicable or unspecified fetus O32.1XX0 [place] [address] 58587- 5668 Oct, Unspecified high-risk O09.90 and 34 weeks gestation of Z3A.34 [place] [id number] [place] [address] 56212- 5872 Oct, 32 weeks gestation of Z3A.32 and Unspecified high- risk O09.90 [place] [id number] [place] [address] 15661- 6239 Sep, Unspecified high-risk O09.90 ; Encounter for immunization Z23 and 30 weeks gestation of Z3A.30 [place] [id number] [place] [address] 89612- 4724 Sep, Generalized anxiety disorder F41.1 and Major depressive disorder, recurrent episode, moderate F33.1 [place] [id number] [place] [address] 47321- 4107 Aug, Unspecified high-risk O09.90 [place] [id number] [place] [address] 69916- 7993 Aug, Unspecified high-risk O09.90 [place] [address] 78452- 7689 Aug, Dental infection K04.7 [place] [address] 73879- 8448 Aug, Dysuria R30.0 [place] [address] 86616- 0453 Aug, Dysuria R30.0 [place] [address] 32379- 5983 Jul, Influenza vaccine administered V04.81 [place] [address] 79488- 8608 Jul, Unspecified high-risk V23.9 [place] [address] 04631- 5441 Jul, Unspecified high-risk V23.9 and ASCUS with positive high risk HPV 796.9 [place] [address] 20531- 0014 Jul, [place] [id number] [place] [address] 39226- 2812 Jun, [place] [address] 35101- 2309 Jun, Unspecified high-risk V23.9 ; Pap test, as part of routine gynecological examination V76.2 and Screen for STD (sexually transmitted disease) V74.5 [place] [id number] [place] [address] 31220- 5130 Jun, test positive V72.42 ; Unspecified high-risk V23.9 ; UTI in 646.60 and Vomiting 643.90 [place] [address] 08886- 2546 Jun, [facility] [address] [id number] [place] [address]- 7254 Jun, [facility] [place] [facility] [address] [id number] [place] [address]- 2000 Jun, [facility] [place] [facility] [address] [facility] [id number] [place] [address]- 4405 May, [facility] [place] [facility] [address] [id number] [place] [address]- 2631 Apr, [facility] [address] [facility] [id number] [place] [address]- 4651 Apr, Absence of menstruation 626.0 [facility] [address] [facility] [id number] [place] [address]- 7993 Jan, [facility] [address] [facility] [id number] [place] [address]- 6778 Jan, [facility] [place] [facility] [address] [facility] [id number] [place] [address]- 3076 Dec, [facility] [place] [facility] [address] [facility] [id number] [place] [address]- 6171 Dec, [facility] [place] [facility] [address] [facility] [id number] [place] [address]- 5096 Dec, [facility] [place] [facility] [address] [facility] [id number] [place] [address]- 4504 Dec, [facility] [place] [facility] [address] [facility] [id number] [place] [address]- 0089 Nov, [facility] [place] [facility] [address] [id number] [place] [address]- 9792 Nov, [facility] [place] [facility] [address] [facility] [id number] [place] [address]- 9774 Nov, [facility] [place] [facility] [address] [facility] [id number] [place] [address]- 0634 Nov, [facility] [place] [facility] [address] [id number] [place] [address]- 2470 Nov, [facility] [place] [facility] [address] [id number] [place] [address]- 8312 Nov, [facility] [place] [facility] [address] [id number] [place] [address]- 8163 Nov, [facility] [place] [facility] [address] [id number] [place] [address]- 9931 Nov, [facility] [place] [facility] [address] [id number] [place] [address]- 4443 Oct, [facility] [place] [facility] [address] [id number] [place] [address]- 1126 Oct, [facility] [place] [facility] [address] [id number] [place] [address]- 0418 Oct, [facility] [place] [facility] [address] [id number] [place] [address]- 3692 Oct, [facility] [place] [facility] [address] [id number] [place] [address]- 6525 Sep, [facility] [place] [facility] [address] [id number] [place] [address]- 3025 Sep, [facility] [place] [facility] [address] [id number] [place] [address]- 5624 Jul, [facility] [place] [facility] [address] [id number] [place] [address]- 3851 Jul, [facility] [place] [facility] [address] [id number] [place] [address]- 8382 Apr, [facility] [place] [facility] [address] [id number] [place] [address]- 4631 Apr, [facility] [place] [facility] [address] [id number] [place] [address]- 7506 March, [facility] [place] [facility] [address] [id number] [place] [address]- 2890 March, [facility] [address] [id number] [place] [address]- 7517 March, [facility] [place] [facility] [address] [id number] [place] [address]- 9192 March, [facility] [place] [facility] [address] [id number] [place] [address]- 0709 Nov, [facility] [place] [facility] [address] [id number] [place] [address]- 7700 Nov, [facility] [place] [facility] [address] [id number] [place] [address]- 3369 Nov, [facility] [place] [facility] [address] [id number] [place] [address]- 2523 Nov, [facility] [place] [facility] [address] [id number] [place] [address]- 8047 Nov, [facility] [place] [facility] [address] [id number] [place] [address]- 9387 Nov, [facility] [place] [facility] [address] [id number] [place] [address]- 2293 Nov, [facility] [place] [facility] [address] [id number] [place] [address]- 6100 Nov, [facility] [place] [facility] [address] [id number] [place] [address]- 2952 Nov, [facility] [place] [facility] [address] [id number] [place] [address]- 3795 Nov, [facility] [place] [facility] [address] [id number] [place] [address]- 2124 Nov, [facility] [place] [facility] [address] [id number] [place] [address]- 8799 Oct, [facility] [place] [facility] [address] [id number] [place] [address]- 4838 Oct, [facility] [place] [facility] [address] [id number] [place] [address]- 4735 16 Oct, 2013 [facility] [address] [id number] [place] [address]- 1352 13 Oct, 2013 [facility] [place] [facility] [address] [id number] [place] [address]- 5876 13 Oct, 2013 [facility] [place] [facility] [address] [id number] [place] [address]- 7985 12 Oct, 2013 [facility] [place] [facility] [address] [id number] [place] [address]- 6591 11 Oct, 2013 [facility] [place] [facility] [address] [id number] [place] [address]- 6585 Oct, [facility] [place] [facility] [address] [id number] [place] [address]- 3542 Oct, [facility] [place] [facility] [address] [id number] [place] [address] Oct, [facility] [address] [id number] [place] [address] Oct, [facility] [place] [facility] [address] [id number] [place] [address] Oct, [facility] [place] [facility] [address] [id number] [place] [address] Sep, [facility] [place] [facility] [address] [id number] [place] [address] Sep, [facility] [place] [facility] [address] [id number] [place] [address] Sep, [facility] [place] [facility] [address] [id number] [place] [address] Sep, [facility] [place] [facility] [address] [id number] [place] [address] Aug, [facility] [place] [facility] [address] [id number] [place] [address] Aug, [facility] [address] [id number] [place] [address] Aug, [facility] [place] [facility] [address] [id number] [place] [address] Aug, [facility] [place] [facility] [address] [id number] [place] [address] Jun, [facility] [place] [facility] [address] [id number] [place] [address] Jun, [facility] [address] [id number] [place] [address] Apr, [facility] [place] [facility] [address] [id number] [place] [address] March, [facility] [place] [facility] [address] [id number] [place] [address] 17 Jan, 2013 [facility] [place] [facility] [address] [id number] [address] 16 Jan, 2013 [facility] [place] [facility] [address] [id number] [place] [address] 15 Jan, 2013 [facility] [place] [facility] [address] [id number] [place] [address] Jan, [facility] [place] [facility] [address] [id number] [address] Dec, [facility] [place] [facility] [address] [id number] [place] [address] Dec, [facility] [place] [facility] [address] [id number] [place] [address] Dec, [facility] [place] [facility] [address] [id number] [place] [address] Dec, [facility] [place] [facility] [address] [id number] [place] [address] Oct, [facility] [place] [facility] [address] [id number] [place] [address] Oct, [facility] [place] [facility] [address] [id number] [place] [address] Oct, [facility] [place] [facility] [address] [id number] [place] [address] Oct, [facility] [place] [facility] [address] [id number] [place] [address] Oct, [facility] [place] [facility] [address] [id number] [place] [address] Oct, [facility] [place] [facility] [address] [id number] [place] [address] Sep, [facility] [place] [facility] [address] [id number] [place] [address] Sep, [facility] [place] [facility] [address] [facility] [id number] [place] [address] Aug, [facility] [place] [facility] [address] [id number] [place] [address] Aug, [facility] [place] [facility] [address] [id number] [place] [address] Aug, [facility] [place] [facility] [address] [facility] [id number] [place] [address] Jul, [facility] [place] [facility] [address] [id number] [place] [address] Jul, [facility] [place] [facility] [address] [id number] [place] [address] Jul, [facility] [place] [facility] [address] [id number] [place] [address] Jul, [facility] [place] [facility] [address] [facility] [id number] [place] [address] Jun, [facility] [place] [facility] [address] [facility] [id number] [place] [address] Jun, [facility] [place] [facility] [address] [id number] [place] [address] 2545 Jun, [facility] [place] [facility] [address] [id number] [place] [address] Jun, [facility] [place] [facility] [address] [id number] [place] [address] Jun, [facility] [place] [facility] [address] [id number] [place] [address] 14[address] May, [facility] [address] [id number] [place] [address] May, [facility] [place] [facility] [address] [id number] [place] [address] Apr, [facility] [address] [id number] [place] [address] Apr, [facility] [address] [id number] [place] [address] Apr, [facility] [place] [facility] [address] [id number] [place] [address] March, [facility] [place] [facility] [address] [id number] [place] [address] March, [facility] [place] [facility] [address] [id number] [place] [address] March, [facility] [place] [facility] [address] [id number] [place] [address] Jan, [facility] [place] [facility] [address] [id number] [place] [address] Dec, [facility] [place] [facility] [address] [id number] [place] [address]67 Dec, [facility] [place] [facility] [address] [id number] [place] [address] Dec, [facility] [place] [facility] [address] [id number] [place] [address] Dec, [facility] [address] [id number] [place] [address] Dec, [facility] [place] [facility] [address] [id number] [place] [address] 16 Dec, 2011 [facility] [address] [id number] [place] [address] Dec, [facility] [place] [facility] [address] [id number] [place] [address] 29 Dec, 2011 [facility] [place] [facility] [address] [id number] [place] [address]46 28 Dec, 2011 [facility] [place] [facility] [address] [id number] [place] [address]- [address] 21 Dec, 2011 [facility] [address] [id number] [place] [address] 13 Dec, 2011 [facility] [place] [facility] [address] [id number] [place] [address] 269[address] Dec, [facility] [place] [facility] [address] [id number] [place] [address] 10 Dec, 2011 [facility] [place] [facility] [address] [facility] [id number] [place] [address]35 Nov, [facility] [place] [facility] [address] [id number] [place] [address]69 24 Nov, 2011 [facility] [place] [facility] [address] [id number] [place] [address] 2545 Nov, [facility] [place] [facility] [address] [id number] [place] [address]- 1796 Nov, [facility] [place] [facility] [address] [id number] [place] [address] 7766 17 Nov, 2011 [facility] [place] [facility] [address] [facility] [id number] [place] [address]- [address]16 16 Nov, 2011 [facility] [place] [facility] [address] [id number] [place] [address]- [address] Nov, [facility] [place] [facility] [address] [id number] [place] [address]- [address] Nov, [facility] [place] [facility] [address] [id number] [place] [address]- 9580 Oct, [facility] [place] [facility] [address] [id number] [place] [address]- 14[address] Oct, [facility] [place] [facility] [address] [id number] [place] [address]- [address] 15 Oct, 2011 [facility] [place] [facility] [address] [id number] [place] [address]- 8318 15 Oct, 2011 [facility] [place] [facility] [address] [id number] [place] [address] Oct, [facility] [place] [facility] [address] [id number] [place] [address] 0943 Oct, [facility] [place] [facility] [address] [id number] [place] [address]- 6634 Oct, [facility] [place] [facility] [address] [id number] [place] [address]- 8[address] 23 Sep, 2011 [facility] [place] [facility] [address] [id number] [place] [address]- 0872 18 Sep, 2011 [facility] [place] [facility] [address] [id number] [place] [address]- [address] 18 Sep, 2011 [facility] [place] [facility] [address] [id number] [place] [address]- 6148 16 Sep, 2011 [facility] [place] [facility] [address] [id number] [place] [address]- 1276 16 Sep, 2011 [facility] [place] [facility] [address] [id number] [place] [address]- 28[address] 08 Sep, 2011 [facility] [place] [facility] [address] [id number] [place] [address]- 2864 Sep, [facility] [place] [facility] [address] [id number] [place] [address]- 2440 Aug, [facility] [place] [facility] [address] [id number] [place] [address]- 3711 Aug, [facility] [place] [facility] [address] [id number] [place] [address]- 3031 Jun, [facility] [place] [facility] [address] [id number] [place] [address] Oct, [facility] [place] [facility] [address] [id number] [place] [address]- 4801 Oct, [facility] [place] [facility] [address] [id number] [place] [address] 08 Oct, 2010 [facility] [place] [facility] [address] [id number] [place] [address]- 5063 16 Dec, 2009 [facility] [place] [facility] [address] [id number] [place] [address]- 4436 Dec, [facility] [place] [facility] [address] [id number] [place] [address]- 3538 18 Dec, 2009 [facility] [place] [facility] [address] [id number] [place] [address]- 5363 Dec, [facility] [place] [facility] [address] [id number] [place] [address]- 7283 Nov, [facility] [place] [facility] [address] [id number] [place] [address]- 6769 29 Oct, 2009 [facility] [place] [facility] [address] [id number] [place] [address]- 8733 17 Oct, 2009 [facility] [place] [facility] [address] [id number] [place] [address] 15 Oct, 2009 [facility] [place] [facility] [address] [id number] [place] [address] 15 Oct, 2009 [facility] [place] [facility] [address] [id number] [address] Sep, [facility] [place] [address] [id number] [address] Sep, [facility] [place] [id number] [address] Aug, [facility] [place] [id number] [address]- [address] Aug, [facility] [place] [id number] [address]- [address] Aug, [facility] [place] [id number] [address]- [address]28 Aug, [facility] [place] [id number] [address]- 89[address] Aug, [facility] [place] [id number] [address] Jun, IMMUNIZATIONS Vaccine Route Administration Date Status FLUARIX QUAD (3 AND UP) 2017 IM Intramuscular Jul 26, 2017 Administered SOCIAL HISTORY Never Assessed REASON FOR VISIT Flu shot--tcuppettRN PLAN OF CARE VITAL SIGNS MEDICATIONS Unknown Medications RESULTS No Results PROCEDURES Procedure Date Ordered Result Body Site FLUARIX QUAD (3 & UP)-[id number] 26, 2017 SINGLE IMMUNIZATION ADMIN Jul 26, 2017 INSTRUCTIONS MEDICATIONS ADMINISTERED No Known Medications MEDICAL (GENERAL) HISTORY Type Description Date Medical History Tobacco abuse Surgical History tonsillectomy age 15 Surgical History cholecystectomy 2010 Surgical History colonoscopy 3 times Surgical History 4 natural births Hospitalization History Hospitalization for surgery only
--- OUTSIDE RECORDS SUMMARY | 2018-08-17 18:18 | XMS REPORT ---
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 Name Role Phone DERICK IBRAHIM Unavailable PROBLEMS Type Condition ICD9-CM Code [id number] Code Onset Dates Condition Status SNOMED Code Problem Major depressive disorder, recurrent episode, moderate F33.1 Active 029620061 Problem History of methamphetamine abuse Z87.898 Active 670161972 Problem Generalized anxiety disorder F41.1 Active 83791765 Problem Cervical high risk HPV (human papillomavirus) test positive R87.810 Active 381761354 Problem Atyp squam cell of undet signfc cyto smr crvx (ASC-US) R87.610 Active 223862694 Problem BMI 39.0-39.9,adult Z68.39 Active 729401854 Problem Recurrent major depressive disorder, in partial remission F33.41 Active 95830201 Problem Irritable bowel syndrome with diarrhea K58.0 Active 809390380 Problem Other chronic pain G89.29 Active 25785998 Problem Anxiety F41.9 Active 01057117 Problem Alkaline phosphatase elevation R74.8 Active 226456812 ALLERGIES Substance Reaction Event Type Date Status Naproxen Unknown Drug Allergy Jul, Active ENCOUNTERS Encounter Location Date Diagnosis [facility] [id number] [place] [address] 90880- 5683 March, [facility] [id number] [place] [address] 83283- 9148 Jan, Encounter for Depo-Provera contraception Z30.42 [facility] [id number] [place] [address] 85703- 9934 Jan, Generalized anxiety disorder F41.1 and Major depressive disorder, recurrent episode, moderate F33.1 [facility] [id number] [place] [address] 84888- 2662 Dec, Anxiety F41.9 and Recurrent major depressive disorder, in partial remission F33.41 [facility] [id number] [place] [address] 00355- 6339 Nov, [facility] [id number] [place] [address] 45115- 4408 Nov, Other chronic pain G89.29 ; Encounter for surveillance of injectable contraceptive Z30.42 ; BMI 39.0-39.9,adult Z68.39 and Encounter for Depo-Provera contraception Z30.42 [facility] [id number] [place] [address] 42355- 1756 Sep, Anxiety F41.9 and Recurrent major depressive disorder, in partial remission F33.41 [facility] [id number] [place] [address] 57156- 8421 Aug, Generalized anxiety disorder F41.1 and Major depressive disorder, recurrent episode, moderate F33.1 [facility] [id number] [place] [address] 74258- 3348 Aug, [facility] [address] 03831- 0064 Aug, Anxiety F41.9 and Major depressive disorder, recurrent episode, moderate F33.1 [facility] [id number] [place] [address] 16037- 5770 Jul, Encounter for immunization Z23 [facility] [id number] [place] [address] 41704- 0907 19 Jul, 2017 [facility] [id number] [place] [address] 07094- 8220 19 Jul, 2017 [facility] [address] 57638- 6636 14 Jul, 2017 Alkaline phosphatase elevation R74.8 [facility] [id number] [place] [address] 85323- 2358 13 Jul, 2017 Encounter for annual physical exam Z00.00 [facility] [address] [address]- 7818 13 Jul, 2017 [facility] [id number] [place] [address] 90046- 0046 12 Jul, 2017 Routine gynecological examination Z01.419 ; Dysuria R30.0 and Screening breast examination Z12.31 [facility] [id number] [place] [address] 03581- 5012 12 Jul, 2017 Generalized anxiety disorder F41.1 and Major depressive disorder, recurrent episode, moderate F33.1 [facility] [id number] [place] [address] 57452- 2127 08 Jul, 2017 [facility] [id number] [place] [address] 83454- 4711 Jun, Generalized anxiety disorder F41.1 and Major depressive disorder, recurrent episode, moderate F33.1 [facility] [id number] [place] [address] 95129- 3526 Jun, Other chronic pain G89.29 [facility] [id number] [place] [address] [id number] May, Dental caries K02.9 [facility] [id number] [place] [address] 62233- 9187 May, Generalized anxiety disorder F41.1 and Major depressive disorder, recurrent episode, moderate F33.1 [facility] [id number] [place] [address] [id number] May, Dental examination Z01.20 [facility] [id number] [place] [address] 10716- 2551 March, [facility] [id number] [place] [address] 27555- 0005 March, Generalized anxiety disorder F41.1 and Major depressive disorder, recurrent episode, moderate F33.1 [facility] [id number] [place] [address] 23204- 4580 March, Encounter for annual physical exam Z00.00 and Other chronic pain G89.29 [facility] [address] [place] [address] 16997- 9473 Jan, Generalized anxiety disorder F41.1 and Major depressive disorder, recurrent episode, moderate F33.1 [facility] [id number] [place] [address] 11369- 2874 Jan, [facility] [id number] [place] [address] 20103- 3372 Dec, Generalized anxiety disorder F41.1 and Major depressive disorder, recurrent episode, moderate F33.1 [facility] [id number] [place] [address] 17444- 9527 Dec, Generalized anxiety disorder F41.1 and Major depressive disorder, recurrent episode, moderate F33.1 [facility] [id number] [place] [address] 30908- 0204 Dec, [facility] [id number] [place] [address] 21531- 8241 Dec, Generalized anxiety disorder F41.1 and Major depressive disorder, recurrent episode, moderate F33.1 [facility] [address] [place] [address] 99664- 8782 Dec, Diarrhea, unspecified type R19.7 ; Irritable bowel syndrome with diarrhea K58.0 and Alkaline phosphatase elevation R74.8 [facility] [id number] [place] [address] 09732- 4620 Dec, Diarrhea, unspecified type R19.7 and Alkaline phosphatase elevation R74.8 [facility] [id number] [place] [address] 64490- 1374 Dec, Generalized anxiety disorder F41.1 and Major depressive disorder, recurrent episode, moderate F33.1 [facility] [address] [place] [address] 49548- 3107 Dec, Low back pain M54.5 [facility] [id number] [place] [address] 29479- 4928 Dec, Generalized anxiety disorder F41.1 and Major depressive disorder, recurrent episode, moderate F33.1 [facility] [address] 03521- 6538 Dec, Irritable bowel syndrome with diarrhea K58.0 and Diarrhea, unspecified type R19.7 [facility] [address] 02047- 8082 Dec, [facility] [address] 66859- 5274 Dec, Generalized anxiety disorder F41.1 and Major depressive disorder, recurrent episode, moderate F33.1 [facility] [address] 04692 -0039 Nov, Cough R05 ; Viral illness B34.9 and Chronic diarrhea K52.9 [facility] [id number] [place] [address] 92793- 7075 Nov, Generalized anxiety disorder F41.1 and Major depressive disorder, recurrent episode, moderate F33.1 [facility] [address] 04183- 2395 Nov, Encounter for Depo-Provera contraception Z30.42 [facility] [id number] [place] [address] 22081- 5893 Nov, Generalized anxiety disorder F41.1 and Major depressive disorder, recurrent episode, moderate F33.1 [facility] [id number] [place] [address] 44440- 4663 Nov, Low back pain M54.5 [facility] [address] 44741- 9521 14 Oct, 2016 Generalized anxiety disorder F41.1 and Major depressive disorder, recurrent episode, moderate F33.1 [facility] [address] 67275- 1889 Sep, Low back pain M54.5 and Other chronic pain G89.29 [facility] [id number] [place] [address] 31159- 6320 Sep, Generalized anxiety disorder F41.1 and Major depressive disorder, recurrent episode, moderate F33.1 [facility] [id number] [place] [address] 84164- 7986 Sep, Encounter for Depo-Provera contraception Z30.42 [facility] [id number] [place] [address] 03584- 5488 Jul, [facility] [id number] [place] [address] 50211- 7607 Jul, [facility] [id number] [place] [address] 84786- 6323 Jul, Encounter for immunization Z23 [facility] [address] 36026- 8813 Jun, Encounter for Depo-Provera contraception Z30.42 [facility] [id number] [place] [address] 39396- 6175 Jun, Generalized anxiety disorder F41.1 and Major depressive disorder, recurrent episode, moderate F33.1 [facility] [id number] [place] [address] 33739- 9477 May, Generalized anxiety disorder F41.1 and Major depressive disorder, recurrent episode, moderate F33.1 [facility] [address] [place] [address] 66330- 0789 Apr, Generalized anxiety disorder F41.1 and Major depressive disorder, recurrent episode, moderate F33.1 [facility] [id number] [place] [address] 18214- 4954 March, Encounter for Depo-Provera contraception Z30.42 [facility] [id number] [place] [address] 71012- 8871 25 May, 2016 Generalized anxiety disorder F41.1 and Major depressive disorder, recurrent episode, moderate F33.1 [facility] [id number] [place] [address] 08801- 1401 Jan, Generalized anxiety disorder F41.1 and Major depressive disorder, recurrent episode, moderate F33.1 [facility] [id number] [place] [address] 91208- 9363 Jan, [facility] [address] 49274 -6736 Jan, Oral infection K12.2 [facility] [address] 52574- 0630 Jan, Tobacco abuse Z72.0 and Hypokalemia E87.6 [facility] [id number] [place] [address] 52607- 6480 Jan, [facility] [address] 84448- 0683 Dec, Screening, lipid Z13.220 and Hypokalemia E87.6 [facility] [id number] [place] [address] 87170- 6805 Dec, Screening, lipid Z13.220 ; Screening for diabetes mellitus Z13.1 and Tobacco abuse Z72.0 [facility] [id number] [place] [address] 86573- 2999 Dec, Generalized anxiety disorder F41.1 and Major depressive disorder, recurrent episode, moderate F33.1 [facility] [id number] [place] [address] 61918- 8951 03 Dec, 2016 Routine follow-up Z39.2 ; Encounter for Depo- Provera contraception Z30.42 ; Atyp squam cell of undet signfc cyto smr crvx ( ASC-US) R87.610 and Cervical high risk human papillomavirus (HPV) DNA test positive R87.810 [facility] [id number] [place] [address] 03753- 2620 Dec, Generalized anxiety disorder F41.1 and Major depressive disorder, recurrent episode, moderate F33.1 [facility] [id number] [place] [address] 79170- 6093 Nov, Unspecified high-risk O09.90 and 39 weeks gestation of Z3A.39 [facility] [id number] [place] [address] 93573- 7094 Nov, Unspecified high-risk O09.90 and 38 weeks gestation of Z3A.38 [facility] [address] 68659- 2051 Nov, Unspecified high-risk O09.90 ; Dental infection K04.7 and 37 weeks gestation of Z3A.37 [facility] [address] 90960- 3387 Oct, screening for streptococcus B Z36 ; 36 weeks gestation of Z3A.36 and Breech presentation, not applicable or unspecified fetus O32.1XX0 [facility] [id number] [place] [address] 31597- 3701 Oct, Unspecified high-risk O09.90 and 34 weeks gestation of Z3A.34 [facility] [id number] [place] [address] 43879- 4775 Oct, 32 weeks gestation of Z3A.32 and Unspecified high- risk O09.90 [facility] [address] 46116- 7485 Sep, Unspecified high-risk O09.90 ; Encounter for immunization Z23 and 30 weeks gestation of Z3A.30 [facility] [address] 49735- 4610 Sep, Generalized anxiety disorder F41.1 and Major depressive disorder, recurrent episode, moderate F33.1 [facility] [address] 15056- 9388 Aug, Unspecified high-risk O09.90 [facility] [address] [address]- 1513 Aug, Unspecified high-risk O09.90 [facility] [address] [place] [address] 28824- 6032 Aug, Dental infection K04.7 [facility] [id number] [place] [address] 74313- 3245 Aug, Dysuria R30.0 [facility] [id number] [place] [address] 19979- 9080 Aug, Dysuria R30.0 [facility] [id number] [place] [address] 53411- 6370 Jul, Influenza vaccine administered V04.81 [facility] [id number] [place] [address] 09535- 9696 Jul, Unspecified high-risk V23.9 [facility] [address] [place] [address] 01628- 5893 Jul, Unspecified high-risk V23.9 and ASCUS with positive high risk HPV 796.9 [facility] [id number] [place] [address] 13439- 6063 Jul, [facility] [address] [place] [address] 54748- 2297 Jun, [facility] [id number] [place] [address] 79445- 6541 Jun, Unspecified high-risk V23.9 ; Pap test, as part of routine gynecological examination V76.2 and Screen for STD (sexually transmitted disease) V74.5 [facility] [address] [place] [address] 03809- 4038 Jun, test positive V72.42 ; Unspecified high-risk V23.9 ; UTI in 646.60 and Vomiting 643.90 [place] [address] [facility] [id number] [place] [address]- 4488 Jun, [facility] [place] [facility] [address] [id number] [place] [address]- 9694 Jun, [facility] [place] [facility] [address] [id number] [place] [address]- 1241 Jun, [facility] [place] [facility] [address] [id number] [place] [address]- 7771 May, [facility] [place] [facility] [address] [id number] [place] [address]- 3454 Apr, [facility] [place] [facility] [address] [facility] [id number] [place] [address]- 1318 Apr, Absence of menstruation 626.0 [facility] [place] [facility] [address] [facility] [id number], [place] [address]- 7396 Jan, [facility] [place] [facility] [address] [facility] [id number], [place] [address]- 4391 Jan, [facility] [place] [facility] [address] [facility] [id number] [place] [address]- 0345 Dec, [facility] [place] [facility] [address] [facility] [id number][place] [address]- 6369 Dec, [facility] [place] [facility] [id number] [address]- 4313 Dec, [facility] [place] [facility] [address] [facility] [id number] 3253 Dec, [facility] [place] [facility] [address] [facility] [id number][place] [address]- 2600 Nov, [facility] [place] [facility] [address] [id number], [place] [address]- 5008 Nov, [facility] [place] [facility] [address] [facility] [id number], [place] [address]- 6977 Nov, [facility] [place] [facility] [address] [id number], [place] [address]- 4986 Nov, [facility] [address] [id number] [place] [address]- 5373 Nov, [facility] [place] [facility] [address] [id number] [place] [address]- 2748 Nov, [facility] [place] [facility] [address] [facility] [id number] [place] [address]- 9277 Nov, [facility] [place] [facility] [address] [id number] [place] [address]- 1300 Nov, [facility] [place] [facility] [address] [id number] [place] [address]- 3070 Oct, [facility] [place] [facility] [address] [id number] [place] [address]- 4223 Oct, [facility] [place] [facility] [address] [facility] [id number] [place] [address]- 7948 Oct, [facility] [place] [facility] [address] [id number] [place] [address]- 3855 Oct, [facility] [place] [facility] [address] [id number] [place] [address]- 4110 Sep, [facility] [place] [facility] [address] [facility] [id number] [place] [address]- 7705 Sep, [facility] [place] [facility] [address] [id number] [place] [address]- 9742 Jul, [facility] [place] [facility] [address] [id number], [place] [address]- 9244 Jul, [facility] [place] [facility] [address] [id number] [place] [address]- 6471 Apr, [facility] [place] [facility] [address] [facility] [id number] [place] [address]- 5085 Apr, [facility] [place] [facility] [address] [facility] [id number] [place] [address]- 6821 March, [facility] [place] [facility] [address] [id number] [place] [address]- 1785 March, [facility] [place] [facility] [address] [id number] [place] [address]- 2936 March, [facility] [place] [facility] [address] [id number] [place] [address]- 5406 March, [facility] [place] [facility] [address] [id number] [place] [address]- 0371 Nov, [facility] [place] [facility] [address] [id number] [place] [address]- 0496 Nov, [facility] [place] [facility] [address] [id number] [place] [address]- 3543 Nov, [facility] [place] [facility] [address] [id number] [place] [address]- 9039 Nov, [facility] [place] [facility] [address] [id number] [place] [address]- 3092 Nov, [facility] [place] [facility] [address] [id number] [place] [address]- 6255 Nov, [facility] [place] [facility] [address] [id number] [place] [address]- 6705 Nov, [facility] [place] [facility] [address] [id number] [place] [address]- 0035 Nov, [facility] [place] [facility] [address] [id number] [place] [address]- 3951 Nov, [facility] [place] [facility] [address] [id number] [place] [address]- 1583 Nov, [facility] [place] [facility] [address] [id number] [place] [address]- 3556 Nov, [facility] [place] [facility] [address] [id number] [place] [address]- 6934 Oct, [facility] [place] [facility] [address] [id number] [place] [address]- 7847 16 Oct, 2013 [facility] [address] [id number] [place] [address]- 6301 16 Oct, 2013 [facility] [place] [facility] [address] [id number] [place] [address]- 5873 13 Oct, 2013 [facility] [place] [facility] [address] [id number] [place] [address]- 4277 13 Oct, 2013 [facility] [place] [facility] [address] [id number] [place] [address]- 0919 12 Oct, 2013 [facility] [place] [facility] [address] [id number] [place] [address]- 2323 Oct, [facility] [place] [facility] [address] [id number] [place] [address]- 5311 Oct, [facility] [place] [facility] [address] [id number] [place] [address]- 4190 Oct, [facility] [place] [facility] [address] [id number] [place] [address]- 8836 Oct, [facility] [place] [facility] [address] [id number] [place] [address]- 5091 Oct, [facility] [place] [facility] [address] [id number] [place] [address]- 1414 09 Oct, 2013 [facility] [place] [facility] [address] [id number], [place] [address]- 2065 Sep, [facility] [place] [facility] [address] [id number], [place] [address]- 2259 Sep, [facility] [place] [facility] [address] [id number] [place] [address]- 9272 Sep, [facility] [place] [facility] [address] [id number], [place] [address]- 8591 08 Sep, 2013 [facility] [place] [facility] [address] [id number], [place] [address]- 5428 24 Aug, 2013 [facility] [place] [facility] [address] [id number] [place] [address]- 2119 Aug, [facility] [address] [id number] [place] [address]- 3334 Aug, [facility] [address] [id number] [place] [address]- 8499 Aug, [facility] [address] [id number] [place] [address] Jun, [facility] [address] [id number] [place] [address] Jun, [facility] [address] [id number] [place] [address] Apr, [facility] [address] [id number] [place] [address] March, [facility] [address] [id number] [place] [address] Jan, [facility] [address] [id number] [place] [address] 16 Jan, 2013 [facility] [address] [id number] [place] [address] Jan, [facility] [address] [facility] [id number] [place] [address] Jan, [facility] [address] [id number] [place] [address] Dec, [facility] [address] [id number] [place] [address] Dec, [facility] [place] [facility] [address] [id number] [place] [address] Dec, [facility] [place] [facility] [address] [facility] [id number] [place] [address] Dec, [facility] [place] [facility] [address] [id number] [place] [address] Oct, [facility] [place] [facility] [address] [id number] [place] [address] Oct, [facility] [place] [facility] [address] [id number] [place] [address] Oct, [facility] [place] [facility] [address] [id number] [place] [address] Oct, [facility] [place] [facility] [address] [id number] [place] [address] Oct, [facility] [place] [facility] [address] [id number] [place] [address] Oct, [facility] [place] [facility] [address] [id number] [place] [address] Sep, [facility] [place] [facility] [address] [id number] [place] [address] Sep, [facility] [place] [facility] [address] [id number] [place] [address] Aug, [facility] [place] [facility] [address] [id number] [place] [address] Aug, [facility] [place] [facility] [address] [id number] [place] [address] Aug, [facility] [place] [facility] [address] [facility] [id number] [place] [address] Jul, [facility] [place] [facility] [address] [id number], [place] [address] Jul, [facility] [place] [facility] [address] [id number] [place] [address] Jul, [facility] [place] [facility] [address] [id number] [place] [address] Jul, [facility] [place] [facility] [address] [id number] [place] [address] Jun, [facility] [place] [facility] [address] [id number], [place] [address] Jun, [facility] [place] [facility] [address] [id number] [place] [address] Jun, [facility] [place] [facility] [address] [id number] [place] [address] Jun, [facility] [place] [facility] [address] [id number] [place] [address] Jun, [facility] [place] [facility] [address] [id number] [place] [place] [address] May, [facility] [place] [facility] [address] [id number] [place] [address] May, [facility] [place] [facility] [address] [id number] [place] [address] Apr, [facility] [place] [facility] [address] [id number] [place] [address] Apr, [facility] [place] [facility] [address] [id number] [place] [address] Apr, [facility] [place] [facility] [address] [id number] [place] [address] March, [facility] [place] [facility] [address] [id number] [place] [address] March, [facility] [place] [facility] [address] [id number] [place] [address] March, [facility] [place] [facility] [address] [id number] [place] [address] Jan, [facility] [place] [facility] [address] [id number] [place] [address] Dec, [facility] [place] [facility] [address] [id number] [place] [address] Dec, [facility] [place] [facility] [address] [id number] [place] [address] Dec, [facility] [place] [facility] [address] [id number] [place] [address] 21 Dec, 2011 [facility] [address] [id number] [place] [address] 19 Dec, 2011 [facility] [place] [facility] [address] [id number] [place] [address]- 4666 16 Dec, 2011 [facility] [place] [facility] [address] [id number] [place] [address] 09 Dec, 2011 [facility] [place] [facility] [address] [id number] [place] [address] 29 Dec, 2011 [facility] [place] [facility] [address] [id number] [place] [address] 1414 28 Dec, 2011 [facility] [place] [facility] [address] [id number] [place] [address] 21 Dec, 2011 [facility] [place] [facility] [address] [id number] [place] [address] 4[address] 13 Dec, 2011 [facility] [place] [facility] [address] [id number] [place] [address] 11 Dec, 2011 [facility] [place] [facility] [address] [id number] [place] [address]10 10 Dec, 2011 [facility] [place] [facility] [address] [id number] [place] [address] 6[address] 30 Nov, 2011 [facility] [place] [facility] [address] [id number] [place] [address]- [address]26 24 Nov, 2011 [facility] [place] [facility] [address] [id number] [place] [address] Nov, [facility] [place] [facility] [address] [id number] [place] [address] Nov, [facility] [place] [facility] [address] [id number] [place] [address]- 0190 17 Nov, 2011 [facility] [place] [facility] [address] [id number] [place] [address]- 1746 16 Nov, 2011 [facility] [place] [facility] [address] [id number] [place] [address] Nov, [facility] [place] [facility] [address] [id number] [place] [address] Nov, [facility] [place] [facility] [address] [id number] [place] [address] Oct, [facility] [place] [facility] [address] [id number] [place] [address] Oct, [facility] [place] [facility] [address] [id number] [place] [address]- 406[address] 15 Oct, 2011 [facility] [place] [facility] [address] [id number] [place] [address]- 3714 15 Oct, 2011 [facility] [place] [facility] [address] [id number] [place] [address] Oct, [facility] [place] [facility] [address] [id number] [place] [address] 6185 13 Oct, 2011 [facility] [place] [facility] [address] [id number] [place] [address]- 4094 07 Oct, 2011 [facility] [place] [facility] [address] [id number] [place] [address]- 1803 23 Sep, 2011 [facility] [place] [facility] [address] [id number] [place] [address]- 6927 18 Sep, 2011 [facility] [place] [facility] [address] [id number] [place] [address] 18 Sep, 2011 [facility] [place] [facility] [address] [id number] [place] [address]- 7[address] 16 Sep, 2011 [facility] [place] [facility] [address] [id number] [place] [address]- 8278 16 Sep, 2011 [facility] [place] [facility] [address] [id number] [place] [address]- [address]30 08 Sep, 2011 [facility] [place] [facility] [address] [id number] [place] [address] 2546 Sep, [facility] [address] [id number] [place] [address] Aug, [facility] [address] [id number] [place] [address] 28[address] Aug, [facility] [address] [id number] [place] [address] 8960 Jun, [facility] [address] [id number] [place] [address]- 1343 Oct, [facility] [address] [id number] [place] [address]- [address]883 Oct, [facility] [address] [id number] [place] [address]- 2616 08 Oct, 2010 [facility] [address] [id number] [place] [address]- 8855 16 Dec, 2009 [facility] [address] [id number] [place] [address]- 8519 11 Dec, 2009 [facility] [address] [id number] [place] [address]- 6188 18 Dec, 2009 [facility] [address] [id number] [place] [address]- 5680 11 Dec, 2009 [facility] [address] [id number] [place] [address]- [address]324 Nov, [facility] [address] [id number] [place] [address] 2540 29 Oct, 2009 [facility] [place] [facility] [address] [id number] [place] [address] 2546 Oct, [facility] [place] [facility] [address] [id number] [place] [address]- 2546 15 Oct, 2009 [facility] [place] [facility] [address] [id number] [place] [address] 254 Oct, [facility] [id number] [address] Sep, [facility] [id number] [place] [address] Sep, [facility] [id number] [place] [address] Aug, [facility] [id number] [address] Aug, [facility] [id number] [place] [address] 0915 Aug, [facility] [id number] [place] [address]- [address] Aug, [facility] [id number] [place] [address] Aug, [facility] [id number] [place] [address] Jun, IMMUNIZATIONS No Known Immunizations SOCIAL HISTORY Never Assessed REASON FOR VISIT Well Woman Exam--Travon PLAN OF CARE Activity Details Follow Up 1 Year, sooner prn Reason: VITAL SIGNS Height 68 in 2017-07-13 Weight 258.8 lbs 2017-07-13 Temperature 99.8 degrees Fahrenheit 2017-07-13 Heart Rate 84 bpm 2017-07-13 Respiratory Rate 20 2017-07-13 BMI 39.35 kg/m2 2017-07-13 Blood pressure systolic 132 mmHg 2017-07-13 Blood pressure diastolic 84 mmHg 2017-07-13 MEDICATIONS Medication Instructions Dosage Frequency Start Date End Date Duration Status Tizanidine HCl 4 MG Orally Three times a day 1 tablet as needed 8h 30 Sep, 2016 Active RESULTS No Results PROCEDURES Procedure Date Ordered Result Body Site SPECIMEN HANDLING Jul 13, 2017 LAB NOT BILLED BY [facility] Jul 13, 2017 No Charge Jul 13, 2017 Bacterial Vaginosis In House Jul 13, 2017 URINALYSIS, AUTO, W/O SCOPE Jul 13, 2017 INSTRUCTIONS MEDICATIONS ADMINISTERED No Known Medications MEDICAL (GENERAL) HISTORY Type Description Date Medical History Tobacco abuse Surgical History tonsillectomy age 15 Surgical History cholecystectomy 2009 Surgical History colonoscopy 3 times Surgical History 4 natural births Hospitalization History Hospitalization for surgery only
--- OUTSIDE RECORDS SUMMARY | 2018-08-17 18:19 | XMS REPORT ---
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 Name Role Phone SKY ANDERSON Unavailable PROBLEMS Type Condition ICD9-CM Code [id number] Code Onset Dates Condition Status SNOMED Code Problem Major depressive disorder, recurrent episode, moderate F33.1 Active 197346149 Problem History of methamphetamine abuse Z87.898 Active 000393135 Problem Generalized anxiety disorder F41.1 Active 61725861 Problem Cervical high risk HPV (human papillomavirus) test positive R87.810 Active 273691462 Problem Atyp squam cell of undet signfc cyto smr crvx (ASC-US) R87.610 Active 054831046 Problem BMI 39.0-39.9,adult Z68.39 Active 276065395 Problem Recurrent major depressive disorder, in partial remission F33.41 Active 60498668 Problem Irritable bowel syndrome with diarrhea K58.0 Active 897018236 Problem Other chronic pain G89.29 Active 16617902 Problem Anxiety F41.9 Active 92923886 Problem Alkaline phosphatase elevation R74.8 Active [id number] ALLERGIES No Information ENCOUNTERS Encounter Location Date Diagnosis [place] [id number] [place] [address] 65227- 4053 March, [facility] [id number] [place] [address] 45958- 3647 Jan, Encounter for Depo-Provera contraception Z30.42 [facility] [id number] [place] [address] 20596- 7378 Jan, Generalized anxiety disorder F41.1 and Major depressive disorder, recurrent episode, moderate F33.1 [place] [id number] [place] [address] 64441- 0827 Dec, Anxiety F41.9 and Recurrent major depressive disorder, in partial remission F33.41 [facility] [id number] [place] [address] 34625- 0176 Nov, [facility] [id number] [place] [address] 25611- 5837 Nov, Other chronic pain G89.29 ; Encounter for surveillance of injectable contraceptive Z30.42 ; BMI 39.0-39.9,adult Z68.39 and Encounter for Depo-Provera contraception Z30.42 [place] [id number] [place] [address] 03930- 6530 Sep, Anxiety F41.9 and Recurrent major depressive disorder, in partial remission F33.41 [place] [id number] [place] [address] 16000- 9957 Aug, Generalized anxiety disorder F41.1 and Major depressive disorder, recurrent episode, moderate F33.1 [place] [id number] [place] [address] 64215- 9197 Aug, [place] [address] [address] [id number] [place] [address] 65892- 0496 Aug, Anxiety F41.9 and Major depressive disorder, recurrent episode, moderate F33.1 [place] [address] [address] [id number] [place] [address] 05042- 7961 25 Jul, 2017 Encounter for immunization Z23 [place] [address] [address] [id number] [place] [address] 13985- 3442 19 Jul, 2017 [place] [id number] [place] [address] 54661- 9418 19 Jul, 2017 [place] [address] [address] [id number] [place] [address] 65448- 2945 14 Jul, 2017 Alkaline phosphatase elevation R74.8 [place] [address] [id number] [place] [address] 67804- 8210 13 Jul, 2017 Encounter for annual physical exam Z00.00 [place] [address] [place] [address]- 1892 13 Jul, 2017 [facility] [id number] [place] [address] 96761- 6328 12 Jul, 2017 Dysuria R30.0 ; Routine gynecological examination Z01.419 and Screening breast examination Z12.31 [facility] [id number] [place] [address] 87865- 4269 12 Jul, 2017 Generalized anxiety disorder F41.1 and Major depressive disorder, recurrent episode, moderate F33.1 [facility] [id number] [place] [address] 44823- 9084 08 Jul, 2017 [facility] [id number] [place] [address] 88654- 4666 Jun, Generalized anxiety disorder F41.1 and Major depressive disorder, recurrent episode, moderate F33.1 [place] [id number] [place] [address] 85377- 9191 Jun, Other chronic pain G89.29 [facility] [id number] [place] [address] [id number] May, Dental caries K02.9 [facility] [id number] [place] [address] 89175- 1108 May, Generalized anxiety disorder F41.1 and Major depressive disorder, recurrent episode, moderate F33.1 [facility] [id number] [place] [address] [id number] May, Dental examination Z01.20 [facility] [id number] [place] [address] 40140- 7262 March, [facility] [id number] [place] [address] 98943- 3088 March, Generalized anxiety disorder F41.1 and Major depressive disorder, recurrent episode, moderate F33.1 [facility] [id number] [place] [address] 11879- 2006 March, Encounter for annual physical exam Z00.00 and Other chronic pain G89.29 [facility] [address] [address]- 7682 Jan, Generalized anxiety disorder F41.1 and Major depressive disorder, recurrent episode, moderate F33.1 [facility] [address] [address]- 9816 Jan, [facility] [id number] [place] [address] 89155- 9016 Dec, Generalized anxiety disorder F41.1 and Major depressive disorder, recurrent episode, moderate F33.1 [place] [id number] [place] [address] 80298- 5641 Dec, Generalized anxiety disorder F41.1 and Major depressive disorder, recurrent episode, moderate F33.1 [place] [address] [place] [id number] [place] [address] 83845- 5630 Dec, [place] [address] [address] [id number] [place] [address] 28577- 4764 Dec, Generalized anxiety disorder F41.1 and Major depressive disorder, recurrent episode, moderate F33.1 [place] [id number] [place] [address] 33437- 7836 15 Dec, 2016 Diarrhea, unspecified type R19.7 ; Irritable bowel syndrome with diarrhea K58.0 and Alkaline phosphatase elevation R74.8 [place] [address] [address]- 4540 Dec, Diarrhea, unspecified type R19.7 and Alkaline phosphatase elevation R74.8 [place] [id number] [place] [address] 61786- 5383 Dec, Generalized anxiety disorder F41.1 and Major depressive disorder, recurrent episode, moderate F33.1 [facility] [address] [address]- 6712 Dec, Low back pain M54.5 [facility] [id number] [place] [address] 73807- 6578 Dec, Generalized anxiety disorder F41.1 and Major depressive disorder, recurrent episode, moderate F33.1 [place] [address] [id number] [place] [address] 50780- 6192 Dec, Irritable bowel syndrome with diarrhea K58.0 and Diarrhea, unspecified type R19.7 [place] [address] [address] [id number] [place] [address] 37406- 7374 Dec, [place] [address] 35560- 0656 Dec, Generalized anxiety disorder F41.1 and Major depressive disorder, recurrent episode, moderate F33.1 [facility] [id number] [place] [address] 73451 -7785 Nov, Cough R05 ; Viral illness B34.9 and Chronic diarrhea K52.9 [place] [address] 61091- 4604 Nov, Generalized anxiety disorder F41.1 and Major depressive disorder, recurrent episode, moderate F33.1 [place] [address] 32212- 3289 Nov, Encounter for Depo-Provera contraception Z30.42 [place] [address] [place] [id number] [place] [address] 31887- 2481 Nov, Generalized anxiety disorder F41.1 and Major depressive disorder, recurrent episode, moderate F33.1 [place] [address] [id number] [place] [address] 15733- 5245 Nov, Low back pain M54.5 [place] [address] 04300- 1924 Oct, Generalized anxiety disorder F41.1 and Major depressive disorder, recurrent episode, moderate F33.1 [place] [address] [id number] [place] [address] 61566- 0874 Sep, Low back pain M54.5 and Other chronic pain G89.29 [facility] [address] [address]- 4486 16 Sep, 2016 Generalized anxiety disorder F41.1 and Major depressive disorder, recurrent episode, moderate F33.1 [facility] [id number] [place] [address] 18485- 3071 Sep, Encounter for Depo-Provera contraception Z30.42 [facility] [id number] [place] [address] 77783- 4556 Jul, [place] [address] [id number] [place] [address] 92322- 1699 Jul, [place] [address] [id number] [place] [address] 65776- 0425 Jul, Encounter for immunization Z23 [facility] [id number] [place] [address] 03620- 9461 Jun, Encounter for Depo-Provera contraception Z30.42 [facility] [id number] [place] [address] 05189- 7240 Jun, Generalized anxiety disorder F41.1 and Major depressive disorder, recurrent episode, moderate F33.1 [facility] [id number] [place] [address] 38886- 3304 May, Generalized anxiety disorder F41.1 and Major depressive disorder, recurrent episode, moderate F33.1 [place] [id number] [place] [address] 54656- 4895 Apr, Generalized anxiety disorder F41.1 and Major depressive disorder, recurrent episode, moderate F33.1 [place] [address] [id number] [place] [address] 40244- 0459 March, Encounter for Depo-Provera contraception Z30.42 [facility] [id number] [place] [address] 01756- 5377 March, Generalized anxiety disorder F41.1 and Major depressive disorder, recurrent episode, moderate F33.1 [place] [id number] [place] [address] 31031- 2572 Jan, Generalized anxiety disorder F41.1 and Major depressive disorder, recurrent episode, moderate F33.1 [place] [address] [address] [id number] [place] [address] 21766- 6942 Jan, [facility] [id number] [place] [address] 34122 -6944 Jan, Oral infection K12.2 [place] [address] 92053- 2844 Jan, Tobacco abuse Z72.0 and Hypokalemia E87.6 [place] [address] 96277- 7157 Jan, [place] [address] [id number] [place] [address] 75417- 2452 Dec, Screening, lipid Z13.220 and Hypokalemia E87.6 [place] [address] [id number] [place] [address] 99143- 3158 Dec, Screening, lipid Z13.220 ; Screening for diabetes mellitus Z13.1 and Tobacco abuse Z72.0 [place] [address] [id number] [place] [address] 19082- 4772 Dec, Generalized anxiety disorder F41.1 and Major depressive disorder, recurrent episode, moderate F33.1 [place] [address] [id number] [place] [address] 38920- 6998 03 Dec, 2015 Routine follow-up Z39.2 ; Encounter for Depo- Provera contraception Z30.42 ; Atyp squam cell of undet signfc cyto smr crvx ( ASC-US) R87.610 and Cervical high risk human papillomavirus (HPV) DNA test positive R87.810 [place] [id number] [place] [address] 01197- 7263 08 Dec, 2015 Generalized anxiety disorder F41.1 and Major depressive disorder, recurrent episode, moderate F33.1 [place] [address] [id number] [place] [address] 05688- 2342 Nov, Unspecified high-risk O09.90 and 39 weeks gestation of Z3A.39 [place] [address] [id number] [place] [address] 42227- 6585 Nov, Unspecified high-risk O09.90 and 38 weeks gestation of Z3A.38 [place] [address] 24277- 0281 Nov, Unspecified high-risk O09.90 ; Dental infection K04.7 and 37 weeks gestation of Z3A.37 [place] [address] 30073- 7877 Oct, screening for streptococcus B Z36 ; 36 weeks gestation of Z3A.36 and Breech presentation, not applicable or unspecified fetus O32.1XX0 [place] [address] 30566- 9098 Oct, Unspecified high-risk O09.90 and 34 weeks gestation of Z3A.34 [place] [address] [place] [id number] [place] [address] 78649- 0669 Oct, 32 weeks gestation of Z3A.32 and Unspecified high- risk O09.90 [place] [address] [id number] [place] [address] 48048- 9355 Sep, Encounter for immunization Z23 ; Unspecified high-risk O09.90 and 30 weeks gestation of Z3A.30 [place] [address] [id number] [place] [address] 93095- 8178 Sep, Generalized anxiety disorder F41.1 and Major depressive disorder, recurrent episode, moderate F33.1 [place] [address] [id number] [place] [address] 54418- 8180 Aug, Unspecified high-risk O09.90 [place] [address] [place] [address]- 2781 Aug, Unspecified high-risk O09.90 [place] [id number] [place] [address] 03815- 8213 Aug, Dental infection K04.7 [place] [id number] [place] [address] 96190- 5563 Aug, Dysuria R30.0 [place] [address] 29003- 3647 Aug, Dysuria R30.0 [place] [id number] [place] [address] 80558- 6418 Jul, Influenza vaccine administered V04.81 [place] [address] [place] [id number] [place] [address] 31013- 9134 Jul, Unspecified high-risk V23.9 [place] [id number] [place] [address] 74862- 1766 Jul, Unspecified high-risk V23.9 and ASCUS with positive high risk HPV 796.9 [place] [id number] [place] [address] 56480- 0120 Jul, [place] [id number] [place] [address] 58582- 8629 Jun, [place] [id number] [place] [address] 00888- 0523 Jun, Unspecified high-risk V23.9 ; Pap test, as part of routine gynecological examination V76.2 and Screen for STD (sexually transmitted disease) V74.5 [place] [id number] [place] [address] 24550- 9907 Jun, test positive V72.42 ; Unspecified high-risk V23.9 ; UTI in 646.60 and Vomiting 643.90 [place] [id number] [place] [address] 26046- 6496 Jun, [facility] [address] [facility] [id number] [place] [address]- 6582 Jun, [facility] [place] [facility] [address] [facility] [id number] [place] [address]- 0643 Jun, [facility] [place] [facility] [address] [facility] [id number] [place] [address]- 8890 May, [facility] [place] [facility] [address] [facility] [id number] [place] [address]- 5982 Apr, [facility] [address] [facility] [id number] [place] [address]- 4511 Apr, Absence of menstruation 626.0 [facility] [address] [facility] [id number] [place] [address]- 2881 Jan, [facility] [id number] [place] [address], [place] [address]- 6458 Jan, [facility] [place] [facility] [address] [facility] [id number] [place] [address]- 3369 Dec, [facility] [place] [facility] [address] [place] [id number] [place] [address]- 9297 Dec, [facility] [place] [facility] [address] [id number] [place] [address]- 5577 Dec, [facility] [place] [facility] [address] [place] [id number] [place] [address]- 2987 Dec, [facility] [place] [facility] [address] [facility] [id number] [address]- 3841 Nov, [facility] [place] [facility] [address] [facility] [id number] [place] [address]- 2431 Nov, [facility] [place] [facility] [address] [facility] [id number], [place] [address]- 9573 Nov, [facility] [place] [facility] [address] [facility] [id number], [place] [address]- 0500 Nov, [facility] [place] [facility] [address] [id number] [place] [address]- 3208 Nov, [facility] [place] [facility] [address] [id number] [place] [address]- 2901 Nov, [facility] [place] [facility] [address] [id number] [place] [address]- 2027 Nov, [facility] [place] [facility] [address] [id number] [place] [address]- 6930 Nov, [facility] [place] [facility] [address] [id number] [place] [address]- 5910 Oct, [facility] [place] [facility] [address] [id number] [place] [address]- 9317 Oct, [facility] [place] [facility] [address] [id number] [place] [address]- 4575 Oct, [facility] [place] [facility] [address] [id number] [place] [address]- 8392 Oct, [facility] [place] [facility] [address] [id number] [place] [address]- 5425 Sep, [facility] [place] [facility] [address] [id number] [place] [address]- 8414 Sep, [facility] [place] [facility] [address] [id number] [place] [address]- 5920 Jul, [facility] [place] [facility] [address] [id number] [place] [address]- 9996 Jul, [facility] [place] [facility] [address] [id number] [place] [address]- 4036 Apr, [facility] [place] [facility] [address] [id number] [place] [address]- 9597 Apr, [facility] [place] [facility] [address] [id number] [place] [address]- 6649 March, [facility] [place] [facility] [address] [id number] [place] [address]- 6650 March, [facility] [place] [facility] [address] [id number] [place] [address]- 3687 March, [facility] [place] [facility] [address] [id number] [place] [address]- 3838 March, [facility] [place] [facility] [address] [id number] [place] [address]- 4012 Nov, [facility] [place] [facility] [address] [id number] [place] [address]- 2806 Nov, [facility] [place] [facility] [address] [id number] [place] [address]- 1498 Nov, [facility] [place] [facility] [address] [id number] [place] [address]- 0921 Nov, [facility] [place] [facility] [address] [id number] [place] [address]- 9970 Nov, [facility] [place] [facility] [address] [id number] [place] [address]- 5588 Nov, [facility] [place] [facility] [address] [id number] [place] [address]- 0145 Nov, [facility] [place] [facility] [address] [id number] [place] [address]- 3303 Nov, [facility] [place] [facility] [address] [id number] [place] [address]- 9898 Nov, [facility] [place] [facility] [address] [id number], [place] [address]- 9561 Nov, [facility] [place] [facility] [address] [id number] [place] [address]- 8391 Nov, [facility] [place] [facility] [address] [id number] [place] [address]- 0197 Oct, [facility] [place] [facility] [address] [id number] [place] [address]- 0099 Oct, [facility] [place] [facility] [address] [id number] [place] [address]- 4704 16 Oct, 2013 [facility] [address] [id number] [place] [address]- 0786 13 Oct, 2013 [facility] [address] [id number] [place] [address]- 5046 13 Oct, 2013 [facility] [address] [id number] [place] [address]- 5903 12 Oct, 2013 [facility] [address] [id number] [place] [address]- 6802 11 Oct, 2013 [facility] [address] [id number] [place] [address]- 6241 11 Oct, 2013 [facility] [address] [id number] [place] [address]- 0738 Oct, [facility] [address] [id number] [place] [address]- 1305 Oct, [facility] [address] [id number] [place] [address]- 0972 Oct, [facility] [address] [id number] [place] [address]- 8209 Oct, [facility] [address] [facility] [id number] [place] [address]- 8817 Sep, [facility] [address] [id number] [place] [address]- 7161 Sep, [facility] [address] [id number] [place] [address]- 3822 Sep, [facility] [place] [facility] [address] [id number] [place] 1770 Sep, [facility] [place] [facility] [address] [id number] [place] [address]- 2301 Aug, [facility] [address] [id number] [place] [address]- 5796 Aug, [facility] [place] [facility] [address] [id number] [place] [address] Aug, [facility] [place] [facility] [address] [id number] [place] [address] Aug, [facility] [address] [id number] [place] [address] Jun, [facility] [place] [facility] [address] [id number] [place] [address] Jun, [facility] [address] [id number] [place] [address] Apr, [facility] [place] [facility] [address] [id number] [place] [address] March, [facility] [address] [id number] [place] [address] 17 Jan, 2013 [facility] [address] [id number], [place] [address] 16 Jan, 2013 [facility] [address] [id number] [place] [address] 15 Jan, 2013 [facility] [address] [id number], [place] [address] Jan, [facility] [place] [facility] [address] [id number], [place] [address] Dec, [facility] [place] [facility] [address] [id number], [place] [address] Dec, [facility] [place] [facility] [address] [id number] [place] [address] Dec, [facility] [place] [facility] [address] [id number], [place] [address] Dec, [facility] [place] [facility] [address] [id number], [place] [address] Oct, [facility] [place] [facility] [address] [id number], [place] [address] Oct, [facility] [place] [facility] [address] [id number] [place] [address] Oct, [facility] [place] [facility] [address] [facility] [id number] [place] [address] Oct, [facility] [place] [facility] [address] [id number] [place] [address] Oct, [facility] [place] [facility] [address] [facility] [id number] [place] [address] Oct, [facility] [place] [facility] [id number] [place] [address], [place] [address] Sep, [facility] [place] [facility] [address] [facility] [id number] [place] [address] Sep, [facility] [place] [facility] [id number], [place] [address] Aug, [facility] [place] [facility] [address] [facility] [id number] [place] [address] Aug, [facility] [place] [facility] [address] [id number] [place] [address] Aug, [facility] [place] [facility] [address] [id number], [place] [address] Jul, [facility] [place] [facility] [address] [facility] [id number], [place] [address] Jul, [facility] [place] [facility] [address] [facility] [id number], [place] [address] Jul, [facility] [place] [facility] [address] [facility] [id number] [place] [address] Jul, [facility] [place] [facility] [address] [facility] [id number], [place] [address] Jun, [facility] [place] [facility] [address] [id number] [address] Jun, [facility] [place] [facility] [address] [id number] [place] [address] Jun, [facility] [place] [facility] [address] [id number] [place] [address] Jun, [facility] [place] [facility] [address] [id number] [place] [address] Jun, [facility] [place] [facility] [address] [id number] [place] [address] May, [facility] [place] [facility] [address] [id number] [place] [address] May, [facility] [place] [facility] [address] [id number] [place] [address] Apr, [facility] [place] [facility] [address] [id number] [place] [address] Apr, [facility] [place] [facility] [address] [id number] [place] [address] Apr, [facility] [place] [facility] [address] [id number] [place] [address] March, [facility] [place] [facility] [address] [id number] [place] [address] March, [facility] [place] [facility] [address] [id number] [place] [address] March, [facility] [place] [facility] [address] [id number] [place] [address] Jan, [facility] [place] [facility] [address] [id number] [place] [address] Dec, [facility] [place] [facility] [address] [id number] [place] [address] Dec, [facility] [place] [facility] [address] [id number] [place] [address] Dec, [facility] [place] [facility] [address] [id number] [place] [address] 1998 Dec, [facility] [address] [id number] [place] [address] Dec, [facility] [place] [facility] [address] [id number] [place] [address] 16 Dec, 2011 [facility] [place] [facility] [address] [id number] [place] [address] Dec, [facility] [place] [facility] [address] [id number] [place] [address] 29 Dec, 2011 [facility] [place] [facility] [address] [id number] [place] [address]- [address] Dec, [facility] [place] [facility] [address] [id number] [place] [address]- 1663 Dec, [facility] [place] [facility] [address] [id number] [place] [address] 13 Dec, 2011 [facility] [place] [facility] [address] [id number] [place] [address]- 9635 Dec, [facility] [place] [facility] [address] [id number] [place] [address] 1472 10 Dec, 2011 [facility] [place] [facility] [address] [id number] [place] [address]- [address] Nov, [facility] [place] [facility] [address] [id number] [place] [address]- [address] 24 Nov, 2011 [facility] [place] [facility] [address] [id number] [place] [address]- [address] Nov, [facility] [place] [facility] [address] [id number] [place] [address]236 Nov, [facility] [place] [facility] [address] [id number] [place] [address] Nov, [facility] [place] [facility] [address] [id number] [place] [address]- [address]166 16 Nov, 2011 [facility] [place] [facility] [address] [id number] [place] [address]- [address]26 Nov, [facility] [address] [id number] [place] [address]- 57[address] Nov, [facility] [place] [facility] [address] [id number] [place] [address] 1556 Oct, [facility] [place] [facility] [address] [id number] [place] [address] 1235 Oct, [facility] [place] [facility] [address] [id number] [place] [address] 7741 15 Oct, 2011 [facility] [place] [facility] [address] [id number] [place] [address] 15 Oct, 2011 [facility] [place] [facility] [address] [id number] [place] [address] 13 Oct, 2011 [facility] [place] [facility] [address] [id number] [place] [address] Oct, [facility] [address] [id number] [place] [address] 07 Oct, 2011 [facility] [place] [facility] [address] [id number] [place] [address] 23 Sep, 2011 [facility] [place] [facility] [address] [id number] [place] [address]89 18 Sep, 2011 [facility] [place] [facility] [address] [id number] [place] [address] 18 Sep, 2011 [facility] [place] [facility] [address] [id number] [place] [address] 16 Sep, 2011 [facility] [place] [facility] [address] [id number] [place] [address]- 7129 16 Sep, 2011 [facility] [place] [facility] [address] [id number] [place] [address]696 08 Sep, 2011 [facility] [place] [facility] [address] [id number] [place] [address] 7712 Sep, [facility] [address] [id number] [place] [address] Aug, [facility] [place] [facility] [address] [id number] [place] [address]- 4585 Aug, [facility] [place] [facility] [address] [id number] [place] [address] 3900 Jun, [facility] [place] [facility] [address] [id number] [place] [address] 5573 Oct, [facility] [place] [facility] [address] [id number] [place] [address]- 1625 Oct, [facility] [place] [facility] [address] [id number] [place] [address]- 6178 08 Oct, 2010 [facility] [place] [facility] [address] [facility] [id number] [place] [address]- 3786 16 Dec, 2009 [facility] [place] [facility] [address] [id number] [place] [address]- 1672 11 Dec, 2009 [facility] [place] [facility] [address] [id number] [place] [address]- 0141 18 Dec, 2009 [facility] [place] [facility] [address] [id number] [place] [address]- 7789 11 Dec, 2009 [facility] [place] [facility] [address] [id number], [place] [address] 98[address] Nov, [facility] [place] [facility] [address] [id number], [place] [address] 29 Oct, 2009 [facility] [place] [facility] [address] [id number] [place] [address]- 7168 17 Oct, 2009 [facility] [place] [facility] [address] [id number] [place] [address] 15 Oct, 2009 [facility] [place] [facility] [address] [id number] [place] [address] 15 Oct, 2009 [facility] [place] [facility] [address] [id number] [address] Sep, [facility] [id number] Sep, [facility] [id number], [place] [address] Aug, [facility] [id number], [place] [address] Aug, [facility] [id number], [place] [address] Aug, [facility] [id number], [place] [address] Aug, [facility] [id number], [place] [address] Aug, [facility] [address] [id number], [place] [address] Jun, IMMUNIZATIONS No Known Immunizations SOCIAL HISTORY Never Assessed REASON FOR VISIT 1st repeat pap letter mailed PLAN OF CARE VITAL SIGNS MEDICATIONS Unknown Medications RESULTS No Results PROCEDURES No Known procedures INSTRUCTIONS MEDICATIONS ADMINISTERED No Known Medications MEDICAL (GENERAL) HISTORY Type Description Date Medical History Tobacco abuse Surgical History tonsillectomy age 15 Surgical History cholecystectomy 2009 Surgical History colonoscopy 3 times Surgical History 4 natural births Hospitalization History Hospitalization for surgery only
--- OUTSIDE RECORDS SUMMARY | 2018-08-17 18:20 | XMS REPORT ---
Author Author CARLOSFABY GRIGGS [facility] Address [address] [place] [address] Care Team Providers Care Assembler Convertible Top Name Role Phone FABY GONZALEZ Unavailable PROBLEMS Type Condition ICD9-CM Code [id number] Code Onset Dates Condition Status SNOMED Code Problem Major depressive disorder, recurrent episode, moderate F33.1 Active 343436592 Problem History of methamphetamine abuse Z87.898 Active 894174249 Problem Generalized anxiety disorder F41.1 Active 22053937 Problem Cervical high risk HPV (human papillomavirus) test positive R87.810 Active 884080465 Problem Atyp squam cell of undet signfc cyto smr crvx (ASC-US) R87.610 Active 665065177 Problem BMI 39.0-39.9,adult Z68.39 Active 232659187 Problem Recurrent major depressive disorder, in partial remission F33.41 Active 93906587 Problem Irritable bowel syndrome with diarrhea K58.0 Active 817147204 Problem Other chronic pain G89.29 Active 14994643 Problem Anxiety F41.9 Active 01778688 Problem Alkaline phosphatase elevation R74.8 Active [id number] ALLERGIES No Information ENCOUNTERS Encounter Location Date Diagnosis [place] [id number] [place] [address] 89424- 6186 March, [facility] [id number] [place] [address] 56880- 3753 Jan, Encounter for Depo-Provera contraception Z30.42 [facility] [id number] [place] [address] 24667- 8481 Jan, Generalized anxiety disorder F41.1 and Major depressive disorder, recurrent episode, moderate F33.1 [place] [id number] [place] [address] 71188- 0357 Dec, Anxiety F41.9 and Recurrent major depressive disorder, in partial remission F33.41 [facility] [id number] [place] [address] 92095- 5627 Nov, [place] [id number] [place] [address] 70985- 7982 Nov, Other chronic pain G89.29 ; Encounter for surveillance of injectable contraceptive Z30.42 ; BMI 39.0-39.9,adult Z68.39 and Encounter for Depo-Provera contraception Z30.42 [place] [id number] [place] [address] 14880- 5223 Sep, Anxiety F41.9 and Recurrent major depressive disorder, in partial remission F33.41 [place] [id number] [place] [address] 08547- 4331 Aug, Generalized anxiety disorder F41.1 and Major depressive disorder, recurrent episode, moderate F33.1 [place] [id number] [place] [address] 07459- 7669 Aug, [place] [id number] [place] [address] 05721- 5788 Aug, Anxiety F41.9 and Major depressive disorder, recurrent episode, moderate F33.1 [place] [id number] [place] [address] 96881- 2024 25 Jul, 2017 Encounter for immunization Z23 [place] [id number] [place] [address] 82924- 6282 19 Jul, 2017 [place] [id number] [place] [address] 18504- 1267 19 Jul, 2017 [place] [id number] [place] [address] 09662- 9951 14 Jul, 2017 Alkaline phosphatase elevation R74.8 [place] [id number] [place] [address] 11342- 1306 13 Jul, 2017 Encounter for annual physical exam Z00.00 [place] [id number] [address]- 0627 13 Jul, 2017 [facility] [id number] [place] [address] 38719- 0086 12 Jul, 2017 Routine gynecological examination Z01.419 ; Dysuria R30.0 and Screening breast examination Z12.31 [facility] [id number] [place] [address] 54360- 4342 12 Jul, 2017 Generalized anxiety disorder F41.1 and Major depressive disorder, recurrent episode, moderate F33.1 [facility] [id number] [place] [address] 08090- 6893 08 Jul, 2017 [facility] [id number] [place] [address] 22643- 2074 Jun, Generalized anxiety disorder F41.1 and Major depressive disorder, recurrent episode, moderate F33.1 [place] [id number] [place] [address] 79995- 3846 Jun, Other chronic pain G89.29 [facility] [id number] [place] [address] [id number] May, Dental caries K02.9 [place] [id number] [place] [address] 59415- 1939 10 May, 2017 Generalized anxiety disorder F41.1 and Major depressive disorder, recurrent episode, moderate F33.1 [facility] [address] [place] [address] [id number] May, 2017 Dental examination Z01.20 [facility] [address] [address]- 6829 March, [facility] [id number] [place] [address] 45153- 2644 March, Generalized anxiety disorder F41.1 and Major depressive disorder, recurrent episode, moderate F33.1 [facility] [address] [address]- 8094 March, Encounter for annual physical exam Z00.00 and Other chronic pain G89.29 [facility] [id number] [place] [address] 25290- 6644 Jan, Generalized anxiety disorder F41.1 and Major depressive disorder, recurrent episode, moderate F33.1 [facility] [id number] [place] [address] 14328- 8697 Jan, [facility] [id number] [place] [address] 38503- 2161 Dec, Generalized anxiety disorder F41.1 and Major depressive disorder, recurrent episode, moderate F33.1 [place] [id number] [place] [address] 02895- 4680 Dec, Generalized anxiety disorder F41.1 and Major depressive disorder, recurrent episode, moderate F33.1 [place] [id number] [place] [address] 44131- 8188 Dec, [facility] [id number] [place] [address] 54119- 5223 Dec, Generalized anxiety disorder F41.1 and Major depressive disorder, recurrent episode, moderate F33.1 [place] [id number] [place] [address] 57498- 0986 15 Dec, 2016 Diarrhea, unspecified type R19.7 ; Irritable bowel syndrome with diarrhea K58.0 and Alkaline phosphatase elevation R74.8 [place] [id number] [place] [address] 98210- 5787 Dec, Diarrhea, unspecified type R19.7 and Alkaline phosphatase elevation R74.8 [place] [id number] [place] [address] 53766- 7645 Dec, Generalized anxiety disorder F41.1 and Major depressive disorder, recurrent episode, moderate F33.1 [facility] [address] [address]- 6771 Dec, Low back pain M54.5 [facility] [id number] [place] [address] 13736- 6036 Dec, Generalized anxiety disorder F41.1 and Major depressive disorder, recurrent episode, moderate F33.1 [place] [id number] [place] [address] 58662- 1704 Dec, Irritable bowel syndrome with diarrhea K58.0 and Diarrhea, unspecified type R19.7 [place] [address] 52836- 7590 Dec, [place] [address] 63242- 1292 Dec, Generalized anxiety disorder F41.1 and Major depressive disorder, recurrent episode, moderate F33.1 [facility] [id number] [place] [address] 07531 -0758 Nov, Cough R05 ; Viral illness B34.9 and Chronic diarrhea K52.9 [place] [id number] [place] [address] 85204- 4384 Nov, Generalized anxiety disorder F41.1 and Major depressive disorder, recurrent episode, moderate F33.1 [place] [id number] [place] [address] 55995- 2137 Nov, Encounter for Depo-Provera contraception Z30.42 [place] [id number] [place] [address] 49841- 9215 Nov, Generalized anxiety disorder F41.1 and Major depressive disorder, recurrent episode, moderate F33.1 [place] [id number] [place] [address] 02920- 9024 Nov, Low back pain M54.5 [place] [address] 07356- 0222 Oct, Generalized anxiety disorder F41.1 and Major depressive disorder, recurrent episode, moderate F33.1 [place] [id number] [place] [address] 72849- 7619 Sep, Low back pain M54.5 and Other chronic pain G89.29 [facility] [address] [place] [address] 50568- 3028 16 Sep, 2016 Generalized anxiety disorder F41.1 and Major depressive disorder, recurrent episode, moderate F33.1 [facility] [id number] [place] [address] 41609- 1219 Sep, Encounter for Depo-Provera contraception Z30.42 [facility] [id number] [place] [address] 04249- 2037 Jul, [facility] [id number] [place] [address] 01313- 2684 Jul, [facility] [id number] [place] [address] 67733- 9310 Jul, Encounter for immunization Z23 [facility] [id number] [place] [address] 84985- 1353 Jun, Encounter for Depo-Provera contraception Z30.42 [facility] [id number] [place] [address] 33625- 4703 Jun, Generalized anxiety disorder F41.1 and Major depressive disorder, recurrent episode, moderate F33.1 [facility] [id number] [place] [address] 78081- 9969 May, Generalized anxiety disorder F41.1 and Major depressive disorder, recurrent episode, moderate F33.1 [facility] [id number] [place] [address] 62270- 5452 Apr, Generalized anxiety disorder F41.1 and Major depressive disorder, recurrent episode, moderate F33.1 [place] [id number] [place] [address] 71615- 9060 March, Encounter for Depo-Provera contraception Z30.42 [facility] [address] [place] [address] 27647- 7425 March, Generalized anxiety disorder F41.1 and Major depressive disorder, recurrent episode, moderate F33.1 [place] [id number] [place] [address] 11863- 9225 Jan, Generalized anxiety disorder F41.1 and Major depressive disorder, recurrent episode, moderate F33.1 [place] [id number] [place] [address] 58005- 1779 Jan, [facility] [id number] [place] [address] 26222 -2607 Jan, Oral infection K12.2 [place] [id number] [place] [address] 01783- 2324 Jan, Tobacco abuse Z72.0 and Hypokalemia E87.6 [place] [id number] [place] [address] 85950- 4090 Jan, [place] [address] 26082- 6653 Dec, Screening, lipid Z13.220 and Hypokalemia E87.6 [place] [id number] [place] [address] 25341- 9234 Dec, Screening, lipid Z13.220 ; Screening for diabetes mellitus Z13.1 and Tobacco abuse Z72.0 [place] [id number] [place] [address] 86306- 7528 Dec, Generalized anxiety disorder F41.1 and Major depressive disorder, recurrent episode, moderate F33.1 [place] [id number] [place] [address] 26262- 8810 03 Dec, 2015 Routine follow-up Z39.2 ; Encounter for Depo- Provera contraception Z30.42 ; Atyp squam cell of undet signfc cyto smr crvx ( ASC-US) R87.610 and Cervical high risk human papillomavirus (HPV) DNA test positive R87.810 [place] [address] [place] [address] 33713- 3956 Dec, Generalized anxiety disorder F41.1 and Major depressive disorder, recurrent episode, moderate F33.1 [place] [address] [place] [address] 84901- 6333 Nov, Unspecified high-risk O09.90 and 39 weeks gestation of Z3A.39 [place] [id number] [place] [address] 07269- 7076 Nov, Unspecified high-risk O09.90 and 38 weeks gestation of Z3A.38 [place] [address] 12999- 8244 Nov, Unspecified high-risk O09.90 ; Dental infection K04.7 and 37 weeks gestation of Z3A.37 [place] [id number] [place] [address] 43523- 9131 Oct, screening for streptococcus B Z36 ; 36 weeks gestation of Z3A.36 and Breech presentation, not applicable or unspecified fetus O32.1XX0 [place] [address] 30659- 8173 Oct, Unspecified high-risk O09.90 and 34 weeks gestation of Z3A.34 [place] [id number] [place] [address] 41225- 7661 Oct, 32 weeks gestation of Z3A.32 and Unspecified high- risk O09.90 [place] [id number] [place] [address] 10781- 3181 Sep, Unspecified high-risk O09.90 ; Encounter for immunization Z23 and 30 weeks gestation of Z3A.30 [place] [id number] [place] [address] 29024- 9648 Sep, Generalized anxiety disorder F41.1 and Major depressive disorder, recurrent episode, moderate F33.1 [place] [id number] [place] [address] 21145- 2250 Aug, Unspecified high-risk O09.90 [place] [id number] [place] [address] 15462- 5658 Aug, Unspecified high-risk O09.90 [place] [address] 82026- 9030 Aug, Dental infection K04.7 [place] [address] 21065- 7854 Aug, Dysuria R30.0 [place] [address] 64187- 3376 Aug, Dysuria R30.0 [place] [address] 75629- 4106 Jul, Influenza vaccine administered V04.81 [place] [address] 33612- 0576 Jul, Unspecified high-risk V23.9 [place] [address] 12514- 0856 Jul, Unspecified high-risk V23.9 and ASCUS with positive high risk HPV 796.9 [place] [address] 15046- 0282 Jul, [place] [id number] [place] [address] 33145- 1220 Jun, [place] [address] 41207- 7116 Jun, Unspecified high-risk V23.9 ; Pap test, as part of routine gynecological examination V76.2 and Screen for STD (sexually transmitted disease) V74.5 [place] [id number] [place] [address] 96605- 2143 Jun, test positive V72.42 ; Unspecified high-risk V23.9 ; UTI in 646.60 and Vomiting 643.90 [place] [address] 83172- 2546 Jun, [facility] [address] [id number] [place] [address]- 3321 Jun, [facility] [place] [facility] [address] [id number] [place] [address]- 6452 Jun, [facility] [place] [facility] [address] [facility] [id number] [place] [address]- 9260 May, [facility] [place] [facility] [address] [id number] [place] [address]- 0198 Apr, [facility] [address] [facility] [id number] [place] [address]- 2193 Apr, Absence of menstruation 626.0 [facility] [address] [facility] [id number] [place] [address]- 1901 Jan, [facility] [address] [facility] [id number] [place] [address]- 7426 Jan, [facility] [place] [facility] [address] [facility] [id number] [place] [address]- 1558 Dec, [facility] [place] [facility] [address] [facility] [id number] [place] [address]- 9793 Dec, [facility] [place] [facility] [address] [facility] [id number] [place] [address]- 4169 Dec, [facility] [place] [facility] [address] [facility] [id number] [place] [address]- 8077 Dec, [facility] [place] [facility] [address] [facility] [id number] [place] [address]- 0096 Nov, [facility] [place] [facility] [address] [id number] [place] [address]- 7304 Nov, [facility] [place] [facility] [address] [facility] [id number] [place] [address]- 7560 Nov, [facility] [place] [facility] [address] [facility] [id number] [place] [address]- 5788 Nov, [facility] [place] [facility] [address] [id number] [place] [address]- 8784 Nov, [facility] [place] [facility] [address] [id number] [place] [address]- 9908 Nov, [facility] [place] [facility] [address] [id number] [place] [address]- 7610 Nov, [facility] [place] [facility] [address] [id number] [place] [address]- 7473 Nov, [facility] [place] [facility] [address] [id number] [place] [address]- 5665 Oct, [facility] [place] [facility] [address] [id number] [place] [address]- 7515 Oct, [facility] [place] [facility] [address] [id number] [place] [address]- 0063 Oct, [facility] [place] [facility] [address] [id number] [place] [address]- 3632 Oct, [facility] [place] [facility] [address] [id number] [place] [address]- 1968 Sep, [facility] [place] [facility] [address] [id number] [place] [address]- 0779 Sep, [facility] [place] [facility] [address] [id number] [place] [address]- 6179 Jul, [facility] [place] [facility] [address] [id number] [place] [address]- 2851 Jul, [facility] [place] [facility] [address] [id number] [place] [address]- 5255 Apr, [facility] [place] [facility] [address] [id number] [place] [address]- 4613 Apr, [facility] [place] [facility] [address] [id number] [place] [address]- 6672 March, [facility] [place] [facility] [address] [id number] [place] [address]- 5435 March, [facility] [address] [id number] [place] [address]- 9550 March, [facility] [place] [facility] [address] [id number] [place] [address]- 7864 March, [facility] [place] [facility] [address] [id number] [place] [address]- 5776 Nov, [facility] [place] [facility] [address] [id number] [place] [address]- 8112 Nov, [facility] [place] [facility] [address] [id number] [place] [address]- 3699 Nov, [facility] [place] [facility] [address] [id number] [place] [address]- 4917 Nov, [facility] [place] [facility] [address] [id number] [place] [address]- 1420 Nov, [facility] [place] [facility] [address] [id number] [place] [address]- 4137 Nov, [facility] [place] [facility] [address] [id number] [place] [address]- 0194 Nov, [facility] [place] [facility] [address] [id number] [place] [address]- 3137 Nov, [facility] [place] [facility] [address] [id number] [place] [address]- 7821 Nov, [facility] [place] [facility] [address] [id number] [place] [address]- 6256 Nov, [facility] [place] [facility] [address] [id number] [place] [address]- 3533 Nov, [facility] [place] [facility] [address] [id number] [place] [address]- 2766 Oct, [facility] [place] [facility] [address] [id number] [place] [address]- 9976 Oct, [facility] [place] [facility] [address] [id number] [place] [address]- 4539 16 Oct, 2013 [facility] [address] [id number] [place] [address]- 7565 13 Oct, 2013 [facility] [place] [facility] [address] [id number] [place] [address]- 5036 13 Oct, 2013 [facility] [place] [facility] [address] [id number] [place] [address]- 9777 12 Oct, 2013 [facility] [place] [facility] [address] [id number] [place] [address]- 6834 11 Oct, 2013 [facility] [place] [facility] [address] [id number] [place] [address]- 0621 Oct, [facility] [place] [facility] [address] [id number] [place] [address]- 8379 Oct, [facility] [place] [facility] [address] [id number] [place] [address]- 5357 Oct, [facility] [address] [id number] [place] [address]- 4223 Oct, [facility] [place] [facility] [address] [id number] [place] [address]- 7320 Oct, [facility] [place] [facility] [address] [id number] [place] [address]- 8265 Sep, [facility] [place] [facility] [address] [id number] [place] [address]- 7111 Sep, [facility] [place] [facility] [address] [id number] [place] [address] Sep, [facility] [place] [facility] [address] [id number] [place] [address] Sep, [facility] [place] [facility] [address] [id number] [place] [address] Aug, [facility] [place] [facility] [address] [id number] [place] [address] Aug, [facility] [address] [id number] [place] [address] Aug, [facility] [place] [facility] [address] [id number] [place] [address] Aug, [facility] [place] [facility] [address] [id number] [place] [address] Jun, [facility] [place] [facility] [address] [id number] [place] [address] Jun, [facility] [address] [id number] [place] [address] Apr, [facility] [place] [facility] [address] [id number] [place] [address] March, [facility] [place] [facility] [address] [id number] [place] [address] 17 Jan, 2013 [facility] [place] [facility] [address] [id number] [place] [address] 16 Jan, 2013 [facility] [place] [facility] [address] [id number] [place] [address] 15 Jan, 2013 [facility] [place] [facility] [address] [id number] [place] [address] Jan, [facility] [place] [facility] [address] [id number] [place] [address] Dec, [facility] [place] [facility] [address] [id number] [place] [address] Dec, [facility] [place] [facility] [address] [id number] [place] [address] Dec, [facility] [place] [facility] [address] [id number] [place] [address] Dec, [facility] [place] [facility] [address] [id number] [place] [address] Oct, [facility] [place] [facility] [address] [id number] [place] [address] Oct, [facility] [place] [facility] [address] [id number] [place] [address] Oct, [facility] [place] [facility] [address] [id number] [place] [address] Oct, [facility] [place] [facility] [address] [id number] [place] [address] Oct, [facility] [place] [facility] [address] [id number] [place] [address] Oct, [facility] [place] [facility] [address] [id number] [place] [address] Sep, [facility] [place] [facility] [address] [id number] [place] [address] Sep, [facility] [place] [facility] [address] [facility] [id number] [place] [address] Aug, [facility] [place] [facility] [address] [id number] [place] [address] Aug, [facility] [place] [facility] [address] [id number] [place] [address] Aug, [facility] [place] [facility] [address] [facility] [id number] [place] [address] Jul, [facility] [place] [facility] [address] [id number] [place] [address] Jul, [facility] [place] [facility] [address] [id number] [place] [address] Jul, [facility] [place] [facility] [address] [id number] [place] [address] Jul, [facility] [place] [facility] [address] [facility] [id number] [place] [address] Jun, [facility] [place] [facility] [address] [facility] [id number] [place] [address] Jun, [facility] [place] [facility] [address] [id number] [place] [address] 2548 Jun, [facility] [place] [facility] [address] [id number] [place] [address] Jun, [facility] [place] [facility] [address] [id number] [place] [address] Jun, [facility] [place] [facility] [address] [id number] [place] [address] May, [facility] [address] [id number] [place] [address] May, [facility] [place] [facility] [address] [id number] [place] [address] Apr, [facility] [address] [id number] [place] [address] Apr, [facility] [address] [id number] [place] [address] Apr, [facility] [place] [facility] [address] [id number] [place] [address] March, [facility] [place] [facility] [address] [id number] [place] [address] March, [facility] [place] [facility] [address] [id number] [place] [address] March, [facility] [place] [facility] [address] [id number] [place] [address] Jan, [facility] [place] [facility] [address] [id number] [place] [address] Dec, [facility] [place] [facility] [address] [id number] [place] [address] 9361 Dec, [facility] [place] [facility] [address] [id number] [place] [address] Dec, [facility] [place] [facility] [address] [id number] [place] [address]446 Dec, [facility] [address] [id number] [place] [address] Dec, [facility] [place] [facility] [address] [id number] [place] [address]456 16 Dec, 2011 [facility] [address] [id number] [place] [address] Dec, [facility] [place] [facility] [address] [id number] [place] [address] 2814 29 Dec, 2011 [facility] [place] [facility] [address] [id number] [place] [address] 4099 28 Dec, 2011 [facility] [place] [facility] [address] [id number] [place] [address] 8736 21 Dec, 2011 [facility] [address] [id number] [place] [address] 4[address] 13 Dec, 2011 [facility] [place] [facility] [address] [id number] [place] [address]116 Dec, [facility] [place] [facility] [address] [id number] [place] [address]371 10 Dec, 2011 [facility] [place] [facility] [address] [facility] [id number] [place] [address] Nov, [facility] [place] [facility] [address] [id number] [place] [address] 24 Nov, 2011 [facility] [place] [facility] [address] [id number] [place] [address] 254 Nov, [facility] [place] [facility] [address] [id number] [place] [address] Nov, [facility] [place] [facility] [address] [id number] [place] [address] 8536 17 Nov, 2011 [facility] [place] [facility] [address] [facility] [id number] [place] [address] 4926 16 Nov, 2011 [facility] [place] [facility] [address] [id number] [place] [address] 6260 Nov, [facility] [place] [facility] [address] [id number] [place] [address] Nov, [facility] [place] [facility] [address] [id number] [place] [address] 9557 Oct, [facility] [place] [facility] [address] [id number] [place] [address] 384[address] Oct, [facility] [place] [facility] [address] [id number] [place] [address] 1129 15 Oct, 2011 [facility] [place] [facility] [address] [id number] [place] [address]366 15 Oct, 2011 [facility] [place] [facility] [address] [id number] [place] [address] Oct, [facility] [place] [facility] [address] [id number] [place] [address] 4852 Oct, [facility] [place] [facility] [address] [id number] [place] [address] 7866 Oct, [facility] [place] [facility] [address] [id number] [place] [address] 2828 23 Sep, 2011 [facility] [place] [facility] [address] [id number] [place] [address] 2058 18 Sep, 2011 [facility] [place] [facility] [address] [id number] [place] [address]- 4150 18 Sep, 2011 [facility] [place] [facility] [address] [id number] [place] [address]- 2011 16 Sep, 2011 [facility] [place] [facility] [address] [id number] [place] [address]- 7816 16 Sep, 2011 [facility] [place] [facility] [address] [id number] [place] [address]- 3053 08 Sep, 2011 [facility] [place] [facility] [address] [id number] [place] [address] 7501 Sep, [facility] [place] [facility] [address] [id number] [place] [address]- 0273 Aug, [facility] [place] [facility] [address] [id number] [place] [address]- 8066 Aug, [facility] [place] [facility] [address] [id number] [place] [address]- 9988 Jun, [facility] [place] [facility] [address] [id number] [place] [address] Oct, [facility] [place] [facility] [address] [id number] [place] [address] 5145 Oct, [facility] [place] [facility] [address] [id number] [place] [address] 08 Oct, 2010 [facility] [place] [facility] [address] [id number] [place] [address]- 5612 16 Dec, 2009 [facility] [place] [facility] [address] [id number] [place] [address]- 3188 Dec, [facility] [place] [facility] [address] [id number] [place] [address]- 7166 18 Dec, 2009 [facility] [place] [facility] [address] [id number] [place] [address]- 0865 Dec, [facility] [place] [facility] [address] [id number] [place] [address]- 9097 Nov, [facility] [place] [facility] [address] [id number] [place] [address]- 2096 29 Oct, 2009 [facility] [place] [facility] [address] [id number] [place] [address]- 4495 17 Oct, 2009 [facility] [place] [facility] [address] [id number] [place] [address] 15 Oct, 2009 [facility] [place] [facility] [address] [id number] [place] [address] 15 Oct, 2009 [facility] [place] [facility] [address] [id number] [address] Sep, [facility] [id number] [address] Sep, [facility] [id number] [address] Aug, [facility] [id number] [place] [address]- 2079 Aug, [facility] [id number] [place] [address]- 4705 Aug, [facility] [id number] [place] [address]- [address] Aug, [facility] [id number] [address] Aug, [facility] [id number] [address]33 Jun, IMMUNIZATIONS No Known Immunizations SOCIAL HISTORY Never Assessed REASON FOR VISIT Lab (walk-in) PLAN OF CARE VITAL SIGNS MEDICATIONS Unknown Medications RESULTS Name Result Date Reference Range GGT 2017-07-14 GGT 13 0-60 LIPID PANEL 2017-07-14 Cholesterol, Total 149 100-199 Triglycerides 170 0-149 HDL Cholesterol 25 >39 VLDL Cholesterol Attila 34 5-40 LDL Cholesterol Calc 90 0-99 Comment: CMP 2017-07-14 Glucose, Serum 103 65-99 BUN 10 6-20 Creatinine, Serum 0.84 0.57-1.00 eGFR If NonAfricn Am 91 >59 eGFR If Africn Am 105 >59 BUN/Creatinine Ratio 12 9-23 Sodium, Serum 139 134-144 Potassium, Serum 4.2 3.5-5.2 Chloride, Serum 99 96-106 Carbon Dioxide, Total 25 18-29 Calcium, Serum 8.8 8.7-10.2 Protein, Total, Serum 6.9 6.0-8.5 Albumin, Serum 4.2 3.5-5.5 Globulin, Total 2.7 1.5-4.5 A/G Ratio 1.6 1.2-2.2 Bilirubin, Total 0.6 0.0-1.2 Alkaline Phosphatase, S 156 39-117 AST (SGOT) 22 0-40 ALT (SGPT) 17 0-32 Written Authorization 2017-07-14 Written Authorization PROCEDURES Procedure Date Ordered Result Body Site LAB NOT BILLED BY [facility] Jul 14, 2017 VENIPUNCT, ROUTINE* Jul 14, 2017 INSTRUCTIONS MEDICATIONS ADMINISTERED No Known Medications MEDICAL (GENERAL) HISTORY Type Description Date Medical History Tobacco abuse Surgical History tonsillectomy age 15 Surgical History cholecystectomy 2009 Surgical History colonoscopy 3 times Surgical History 4 natural births Hospitalization History Hospitalization for surgery only
[2018-08-17 18:21] LABS: BASOPHILS % (AUTO) 0 % (0-10); EOSINOPHILS # (AUTO) 0.1 10^3/uL (0.0-0.3); EOSINOPHILS % (AUTO) 1 % (0-10); HEMATOCRIT 38 % (35-52); HEMOGLOBIN 12.7 G/DL (11.5-16.0); LYMPHOCYTES # (AUTO) 3.1 X 10^3 (1.0-4.0); LYMPHOCYTES % (AUTO) 33 % (12-44); MEAN CORPUSCULAR HEMOGLOBIN 27 PG (25-34); MEAN CORPUSCULAR HGB CONC 33 G/DL (32-36); MEAN CORPUSCULAR VOLUME 81 FL (80-99); MEAN PLATELET VOLUME 9.7 FL (7.4-10.4); MONOCYTES # (AUTO) 0.6 X 10^3 (0.0-1.0); MONOCYTES % (AUTO) 6 % (0-12); NEUTROPHILS # (AUTO) 5.7 X 10^3 (1.8-7.8); NEUTROPHILS % (AUTO) 60 % (42-75); PLATELET COUNT 329 10^3/uL (130-400); RED BLOOD COUNT 4.74 10^6/uL (4.35-5.85); RED CELL DISTRIBUTION WIDTH 14.1 % (10.0-14.5); WHITE BLOOD COUNT 9.5 10^3/uL (4.3-11.0)
--- OUTSIDE RECORDS SUMMARY | 2018-08-17 18:21 | XMS REPORT ---
Author Author SUZANNE BURNHAM [facility] Address [address] [place] [address] Care Team Providers Care Data Review Specialist Name Role Phone SUZANNE BURNHAM Unavailable PROBLEMS Type Condition ICD9-CM Code TLA78-XZ Code Onset Dates Condition Status SNOMED Code Problem Major depressive disorder, recurrent episode, moderate F33.1 Active 943709706 Problem History of methamphetamine abuse Z87.898 Active 868469190 Problem Generalized anxiety disorder F41.1 Active 97035032 Problem Cervical high risk HPV (human papillomavirus) test positive R87.810 Active 988862075 Problem Atyp squam cell of undet signfc cyto smr crvx (ASC-US) R87.610 Active 730690765 Problem BMI 39.0-39.9,adult Z68.39 Active 279386872 Problem Recurrent major depressive disorder, in partial remission F33.41 Active 46006789 Problem Irritable bowel syndrome with diarrhea K58.0 Active 470397276 Problem Other chronic pain G89.29 Active 38897442 Problem Anxiety F41.9 Active 77753068 Problem Alkaline phosphatase elevation R74.8 Active 685678951 ALLERGIES No Information ENCOUNTERS Encounter Location Date Diagnosis [facility] [id number] [place] [address] 26105- 2561 Jan, [facility] [id number] [place] [address] 65075- 7905 Dec, Anxiety F41.9 and Recurrent major depressive disorder, in partial remission F33.41 [facility] [id number] [place] [address] 94665- 7251 Nov, [facility] [id number] [place] [address] 86010- 6546 Nov, Other chronic pain G89.29 ; Encounter for surveillance of injectable contraceptive Z30.42 ; BMI 39.0-39.9,adult Z68.39 and Encounter for Depo-Provera contraception Z30.42 [place] [id number]- 3258 Sep, Anxiety F41.9 and Recurrent major depressive disorder, in partial remission F33.41 [facility] [address] 18245- 5408 Aug, Generalized anxiety disorder F41.1 and Major depressive disorder, recurrent episode, moderate F33.1 [facility] [address] 05303- 6930 Aug, [facility] [address] 89163- 2121 Aug, Anxiety F41.9 and Major depressive disorder, recurrent episode, moderate F33.1 [facility] [facility] [address] 83585- 3063 Jul, Encounter for immunization Z23 [facility] [address] 77135- 5352 19 Jul, 2017 [place] [address] 70199- 7627 Jul, [facility] [address] 68964- 1822 14 Jul, 2017 Alkaline phosphatase elevation R74.8 [facility] [facility] [address] 12144- 3310 13 Jul, 2017 Encounter for annual physical exam Z00.00 [place] [address] 97997- 1990 13 Jul, 2017 [place] [address] 24501- 0294 12 Jul, 2017 Routine gynecological examination Z01.419 ; Dysuria R30.0 and Screening breast examination Z12.31 [place] [address] 639732- 2546 Jul, Generalized anxiety disorder F41.1 and Major depressive disorder, recurrent episode, moderate F33.1 [facility] [id number] [place] [address] 89300- 7566 Jul, [facility] [id number] [place] [address] 91854- 8446 Jun, Generalized anxiety disorder F41.1 and Major depressive disorder, recurrent episode, moderate F33.1 [facility] [id number] [place] [address] 25488- 8933 Jun, Other chronic pain G89.29 [facility] [id number] [place] [address] [id number] May, Dental caries K02.9 [facility] [id number] [place] [address] 10677- 9122 May, Generalized anxiety disorder F41.1 and Major depressive disorder, recurrent episode, moderate F33.1 [facility] [address] [place] [address] [id number] May, Dental examination Z01.20 [facility] [id number] [place] [address] 18196- 5023 March, [facility] [id number] [place] [address] 58799- 2704 March, Generalized anxiety disorder F41.1 and Major depressive disorder, recurrent episode, moderate F33.1 [facility] [address] [place] [address] 94324- 2125 March, Encounter for annual physical exam Z00.00 and Other chronic pain G89.29 [facility] [address] [place] [address] 78512- 9489 Jan, Generalized anxiety disorder F41.1 and Major depressive disorder, recurrent episode, moderate F33.1 [facility] [address] [place] [address] 27648- 5032 Jan, [facility] [address] [address]- 6483 29 Dec, 2016 Generalized anxiety disorder F41.1 and Major depressive disorder, recurrent episode, moderate F33.1 [facility] [address] [address]- 8233 17 Dec, 2016 Generalized anxiety disorder F41.1 and Major depressive disorder, recurrent episode, moderate F33.1 [facility] [place] [address] [place] [address] 19891- 1767 Dec, [facility] [address] [place] [address] 35894- 5714 Dec, Generalized anxiety disorder F41.1 and Major depressive disorder, recurrent episode, moderate F33.1 [facility] [address] [address]- 0532 Dec, Diarrhea, unspecified type R19.7 ; Irritable bowel syndrome with diarrhea K58.0 and Alkaline phosphatase elevation R74.8 [facility] [address] [address]- 7100 Dec, Diarrhea, unspecified type R19.7 and Alkaline phosphatase elevation R74.8 [facility] [address] [address]- 4998 Dec, Generalized anxiety disorder F41.1 and Major depressive disorder, recurrent episode, moderate F33.1 [facility] [address] [address]- 8149 Dec, Low back pain M54.5 [facility] [address] [place] [address] 48380- 2968 Dec, Generalized anxiety disorder F41.1 and Major depressive disorder, recurrent episode, moderate F33.1 [facility] [address] [address]- 7425 Dec, Irritable bowel syndrome with diarrhea K58.0 and Diarrhea, unspecified type R19.7 [facility] [id number] [place] [address] 49666- 1506 Dec, [facility] [address] 83205- 5856 Dec, Generalized anxiety disorder F41.1 and Major depressive disorder, recurrent episode, moderate F33.1 [facility] [id number] [place] [address] 40245 -0894 Nov, Cough R05 ; Viral illness B34.9 and Chronic diarrhea K52.9 [facility] [id number] [place] [address] 94694- 9941 Nov, Generalized anxiety disorder F41.1 and Major depressive disorder, recurrent episode, moderate F33.1 [facility] [id number] [place] [address] 93443- 7219 Nov, Encounter for Depo-Provera contraception Z30.42 [place] [address] 43414- 2938 Nov, Generalized anxiety disorder F41.1 and Major depressive disorder, recurrent episode, moderate F33.1 [facility] [id number] [place] [address] 71593- 9875 Nov, Low back pain M54.5 [facility] [place] [id number] [place] [address] 46266- 5932 Oct, Generalized anxiety disorder F41.1 and Major depressive disorder, recurrent episode, moderate F33.1 [facility] [id number] [place] [address] 91978- 8516 Sep, Low back pain M54.5 and Other chronic pain G89.29 [facility] [address] 70027- 9478 Sep, Generalized anxiety disorder F41.1 and Major depressive disorder, recurrent episode, moderate F33.1 [facility] [id number] [place] [address] 06773- 2612 Sep, Encounter for Depo-Provera contraception Z30.42 [facility] [address] [address]- 0025 Jul, [facility] [id number] [place] [address] 92028- 6399 Jul, [facility] [id number] [place] [address] 02883- 2081 Jul, Encounter for immunization Z23 [facility] [id number] [place] [address] 30472- 4716 Jun, Encounter for Depo-Provera contraception Z30.42 [facility] [id number] [place] [address] 15676- 6525 Jun, Generalized anxiety disorder F41.1 and Major depressive disorder, recurrent episode, moderate F33.1 [facility] [id number] [place] [address] 89232- 7489 May, Generalized anxiety disorder F41.1 and Major depressive disorder, recurrent episode, moderate F33.1 [facility] [address] [place] [address] 59719- 7487 Apr, Generalized anxiety disorder F41.1 and Major depressive disorder, recurrent episode, moderate F33.1 [facility] [address] [place] [address] 25486- 4343 March, Encounter for Depo-Provera contraception Z30.42 [facility] [id number] [place] [address] 65763- 1853 March, Generalized anxiety disorder F41.1 and Major depressive disorder, recurrent episode, moderate F33.1 [facility] [id number] [place] [address] 25313- 0196 Jan, Generalized anxiety disorder F41.1 and Major depressive disorder, recurrent episode, moderate F33.1 [facility] [address] [address]- 3112 Jan, [facility] [id number] [place] [address] 42702 -8127 Jan, Oral infection K12.2 [place] [address] 87108- 5331 Jan, Tobacco abuse Z72.0 and Hypokalemia E87.6 [facility] [id number] [place] [address] 55195- 1204 Jan, [facility] [address] 10466- 7684 Dec, Screening, lipid Z13.220 and Hypokalemia E87.6 [place] [address] 08736- 3488 Dec, Screening, lipid Z13.220 ; Screening for diabetes mellitus Z13.1 and Tobacco abuse Z72.0 [place] [address] 39547- 3281 Dec, Generalized anxiety disorder F41.1 and Major depressive disorder, recurrent episode, moderate F33.1 [place] [address] 37811- 1667 Dec, Routine follow-up Z39.2 ; Encounter for Depo- Provera contraception Z30.42 ; Atyp squam cell of undet signfc cyto smr crvx ( ASC-US) R87.610 and Cervical high risk human papillomavirus (HPV) DNA test positive R87.810 [facility] [id number] [place] [address] 87348- 6229 Dec, Generalized anxiety disorder F41.1 and Major depressive disorder, recurrent episode, moderate F33.1 [place] [id number] [place] [address] 98505- 4467 Nov, Unspecified high-risk O09.90 and 39 weeks gestation of Z3A.[address] 88788- 4295 Nov, Unspecified high-risk O09.90 and 38 weeks gestation of Z3A.38 [facility] [place] [id number] [place] [address] 96575- 9816 Nov, Unspecified high-risk O09.90 ; Dental infection K04.7 and 37 weeks gestation of Z3A.37 [place] [id number] [place] [address] 88930- 9662 Oct, screening for streptococcus B Z36 ; 36 weeks gestation of Z3A.36 and Breech presentation, not applicable or unspecified fetus O32.1XX0 [place] [id number] [place] [address] 10528- 5855 Oct, Unspecified high-risk O09.90 and 34 weeks gestation of Z3A.34 [facility] [id number] [place] [address] 74988- 7644 Oct, 32 weeks gestation of Z3A.32 and Unspecified high- risk O09.90 [place] [id number] [place] [address] 87428- 0974 Sep, Unspecified high-risk O09.90 ; Encounter for immunization Z23 and 30 weeks gestation of Z3A.30 [facility] [id number] [place] [address] 88794- 4807 Sep, Generalized anxiety disorder F41.1 and Major depressive disorder, recurrent episode, moderate F33.1 [facility] [id number] [place] [address] 21645- 6180 Aug, Unspecified high-risk O09.90 [place] [id number] [place] [address] 23925- 5673 Aug, Unspecified high-risk O09.90 [place] [id number] [place] [address] 08280- 5243 Aug, Dental infection K04.7 [facility] [id number] [place] [address] 73789- 3635 Aug, Dysuria R30.0 [facility] [address] [place] [address] 68150- 0077 Aug, Dysuria R30.0 [place] [id number] [place] [address] 37004- 8392 Jul, Influenza vaccine administered V04.81 [place] [id number] [place] [address] 23797- 3387 Jul, Unspecified high-risk V23.9 [place] [id number] [place] [address] 49252- 3075 Jul, Unspecified high-risk V23.9 and ASCUS with positive high risk HPV 796.9 [place] [id number] [place] [address] 11335- 8983 Jul, [place] [id number] [place] [address] 52867- 8761 Jun, [place] [id number] [place] [address] 23923- 8331 Jun, Unspecified high-risk V23.9 ; Pap test, as part of routine gynecological examination V76.2 and Screen for STD (sexually transmitted disease) V74.5 [place] [id number] [place] [address] 53497- 5536 Jun, test positive V72.42 ; Unspecified high-risk V23.9 ; UTI in 646.60 and Vomiting 643.90 [place] [address] [place] [address] 45168- 3027 Jun, [place] [id number] [place] [address] 30903- 7380 Jun, [place] [id number] [place] [address] 11423- 1076 Jun, [place] [id number] [place] [address] 25041- 2546 May, [facility] [address] [id number] [place] [address]- 3163 Apr, [facility] [address] [facility] [id number] [place] [address]- 7752 Apr, Absence of menstruation 626.0 [facility] [address] [id number] [place] [address]- 9646 Jan, [facility] [place] [facility] [address] [id number] [address]- 6830 Jan, [facility] [address] [facility] [id number] [place] [address]- 3642 Dec, [facility] [place] [facility] [address] [facility] [id number] [place] [address]- 9472 Dec, [facility] [id number] [place] [address]- 3797 Dec, [facility] [address] [facility] [id number] [place] [address]- 8615 Dec, [facility] [place] [facility] [id number] [place] [address]- 3976 Nov, [facility] [address] [facility] [id number] [address]- 5788 Nov, [facility] [place] [facility] [address] [facility] [id number] [address]- 1681 Nov, [facility] [place] [facility] [address] [facility] [id number] [address]- 6034 Nov, [facility] [place] [facility] [address] [facility] [id number] [place] [address]- 6915 Nov, [facility] [place] [facility] [address] [facility] [id number] 5052 Nov, [facility] [place] [facility] [address] [facility] [id number] [address]- 8180 Nov, [facility] [place] [facility] [address] [id number] [place] [address]- 1357 Nov, [facility] [place] [facility] [address] [id number] [place] 9438 Oct, [facility] [place] [facility] [address] [id number] [place] [address]- 3693 Oct, [facility] [place] [facility] [address] [id number] [place] [address]- 0026 Oct, [facility] [place] [facility] [address] [id number] [place] [address]- 8185 Oct, [facility] [place] [facility] [address] [id number] [place] [address]- 5002 Sep, [facility] [place] [facility] [address] [id number] [place] [address]- 3740 Sep, [facility] [place] [facility] [address] [id number] [place] [address]- 9187 Jul, [facility] [place] [facility] [address] [id number] [place] [address]- 7304 Jul, [facility] [place] [facility] [address] [id number] [place] [address]- 6245 Apr, [facility] [place] [facility] [address] [id number] [place] [address]- 4308 Apr, [facility] [place] [facility] [address] [id number] [address]- 1937 March, [facility] [place] [facility] [address] [id number] [place] [address]- 2645 March, [facility] [place] [facility] [address] [id number] [place] [address]- 1328 March, [facility] [place] [facility] [address] [id number] [place] [address]- 1653 March, [facility] [place] [facility] [address] [id number] [address]- 4970 Nov, [facility] [address] [id number] [place] [address]- 8225 Nov, [facility] [place] [facility] [address] [id number] [place] [address]- 7523 Nov, [facility] [place] [facility] [address] [id number] [place] [address]- 4738 Nov, [facility] [place] [facility] [address] [id number] [place] [address]- 0676 Nov, [facility] [place] [facility] [address] [id number] [place] [address]- 1631 Nov, [facility] [place] [facility] [address] [id number] [place] [address]- 8061 Nov, [facility] [address] [id number] [place] [address]- 5691 Nov, [facility] [place] [facility] [address] [id number] [place] [address]- 1190 Nov, [facility] [address] [id number] [place] [address]- 6584 Nov, [facility] [place] [facility] [address] [id number] [place] [address]- 1108 Nov, [facility] [place] [facility] [address] [id number] [place] [address]- 2617 Oct, [facility] [place] [facility] [address] [id number] [place] [address]- 4906 16 Oct, 2013 [facility] [place] [facility] [address] [id number] [place] [address]- 2071 16 Oct, 2013 [facility] [place] [facility] [address] [id number] [place] [address]- 5370 13 Oct, 2013 [facility] [place] [facility] [address] [id number] [place] [address]- 6524 13 Oct, 2013 [facility] [place] [facility] [address] [id number] [place] [address]- 3997 Oct, [facility] [address] [id number] [place] [address]- 3979 Oct, [facility] [place] [facility] [address] [id number] [place] 4185 Oct, [facility] [place] [facility] [address] [id number] [place] [address]- 6357 Oct, [facility] [place] [facility] [address] [id number] [place] [address]- 8957 Oct, [facility] [place] [facility] [address] [id number] [place] [address]- 0647 Oct, [facility] [place] [facility] [address] [id number] [place] [address]- 2034 Oct, [facility] [place] [facility] [address] [id number] [place] [address]- 4294 Sep, [facility] [place] [facility] [address] [id number] [place] [address]- 7702 Sep, [facility] [place] [facility] [address] [id number] [place] [address]- 8628 Sep, [facility] [place] [facility] [address] [id number] [place] [address]- 5364 Sep, [facility] [place] [facility] [address] [id number] [place] [address]- 7211 Aug, [facility] [place] [facility] [address] [id number] [place] [address]- 2367 Aug, [facility] [place] [facility] [address] [id number] [place] [address]- 3410 Aug, [facility] [place] [facility] [address] [id number] [place] [address]- 2546 Aug, [facility] [place] [facility] [address] [id number] [place] [address]- 3406 Jun, [facility] [address] [id number] [place] [address]- 5261 Jun, [facility] [place] [facility] [address] [id number] [place] [address]- 5536 Apr, [facility] [place] [facility] [address] [id number] [place] [address]- 9645 March, [facility] [place] [facility] [address] [id number] [place] [address]- 2102 Jan, [facility] [address] [id number] [place] [address]- 6849 16 Jan, 2013 [facility] [place] [facility] [address] [id number] [place] [address]- 7040 15 Jan, 2013 [facility] [address] [id number] [place] [address]- 4335 Jan, [facility] [place] [facility] [address] [id number] [place] [address]- 4106 Dec, [facility] [place] [facility] [address] [id number] [place] [address] Dec, [facility] [place] [facility] [address] [id number] [place] [address] Dec, [facility] [place] [facility] [address] [id number] [place] [address] Dec, [facility] [place] [facility] [address] [id number] [place] [address] Oct, [facility] [place] [facility] [address] [id number] [place] [address] Oct, [facility] [place] [facility] [address] [id number] [place] [address] Oct, [facility] [place] [facility] [address] [id number] [place] [address] Oct, [facility] [place] [facility] [address] [id number] [place] [address] Oct, [facility] [place] [facility] [address] [id number] [place] [address] Oct, [facility] [place] [facility] [address] [id number] [place] [address] Sep, [facility] [place] [facility] [address] [id number] [place] [address] Sep, [facility] [place] [facility] [address] [id number] [place] [address] Aug, [facility] [place] [facility] [address] [id number] [place] [address] Aug, [facility] [place] [facility] [address] [id number] [place] [address] Aug, [facility] [place] [facility] [address] [id number] [place] [address] Jul, [facility] [place] [facility] [address] [id number] [place] [address] Jul, [facility] [place] [facility] [address] [id number] [place] [address] Jul, [facility] [place] [facility] [address] [facility] [id number] [place] [address] Jul, [facility] [place] [facility] [address] [id number] [place] [address] Jun, [facility] [place] [facility] [address] [id number] [place] [address] Jun, [facility] [place] [facility] [address] [id number] [place] [address] Jun, [facility] [place] [facility] [address] [facility] [id number] [place] [address] Jun, [facility] [place] [facility] [address] [id number] [place] [address] Jun, [facility] [place] [facility] [address] [id number] [place] [address] May, [facility] [place] [facility] [address] [id number] [place] [address] May, [facility] [place] [facility] [address] [id number] [place] [address] Apr, [facility] [place] [facility] [address] [id number] [place] [address] Apr, [facility] [address] [id number] [place] [address] Apr, [facility] [address] [id number] [place] [address] March, [facility] [address] [id number] [place] [address] March, [facility] [address] [address] [id number] [place] [address] March, [facility] [address] [id number] [place] [address] Jan, [facility] [address] [id number] [place] [address] Dec, [facility] [place] [facility] [address] [id number] [place] [address] Dec, [facility] [place] [facility] [address] [id number] [place] [address] Dec, [facility] [place] [facility] [address] [id number] [place] [address] Dec, [facility] [place] [facility] [address] [id number] [place] [address] 19 Dec, 2011 [facility] [place] [facility] [address] [id number] [place] [address] 16 Dec, 2011 [facility] [place] [facility] [address] [id number] [place] [address] Dec, [facility] [address] [id number] [place] [address] 29 Dec, 2011 [facility] [place] [facility] [address] [id number] [place] [address] 28 Dec, 2011 [facility] [address] [id number] [place] [address] 21 Dec, 2011 [facility] [place] [facility] [address] [id number] [place] [address] 13 Dec, 2011 [facility] [address] [id number] [place] [address] Dec, [facility] [address] [id number] [place] [address] Dec, [facility] [address] [id number] [place] [address] Nov, [facility] [address] [id number] [place] [address] Nov, [facility] [address] [id number] [place] [address] Nov, [facility] [address] [facility] [id number] [place] [address] Nov, [facility] [address] [id number] [place] [address] Nov, [facility] [place] [facility] [address] [id number] [place] [address] Nov, [facility] [place] [facility] [address] [id number] [place] [address] Nov, [facility] [place] [facility] [address] [id number] [place] [address] Nov, [facility] [place] [facility] [address] [id number] [place] [address] Oct, [facility] [place] [facility] [address] [id number] [place] [address] Oct, [facility] [place] [facility] [address] [id number] [place] [address] 15 Oct, 2011 [facility] [place] [facility] [address] [id number] [place] [address] 15 Oct, 2011 [facility] [place] [facility] [address] [id number] [place] [address] Oct, [facility] [place] [facility] [address] [id number] [place] [address] 13 Oct, 2011 [facility] [place] [facility] [address] [id number] [place] [address] Oct, [facility] [place] [facility] [address] [id number] [place] [address] 23 Sep, 2011 [facility] [place] [facility] [address] [id number] [place] [address] 18 Sep, 2011 [facility] [place] [facility] [address] [id number] [place] [address] 18 Sep, 2011 [facility] [place] [facility] [address] [id number] [place] [address] 16 Sep, 2011 [facility] [place] [facility] [address] [id number] [place] [address] 16 Sep, 2011 [facility] [place] [facility] [address] [id number] [place] [address] 08 Sep, 2011 [facility] [place] [facility] [address] [id number] [place] [address] Sep, [facility] [place] [facility] [address] [id number] [place] [address] 24 Aug, 2011 [facility] [place] [facility] [address] [id number] [place] [address] 24 Aug, 2011 [facility] [place] [facility] [address] [id number] [place] [address] Jun, [facility] [address] [id number] [place] [address] 23 Oct, 2010 [facility] [place] [facility] [address] [id number] [place] [address] 19 Oct, 2010 [facility] [place] [facility] [address] [id number] [place] [address] 77[address] 08 Oct, 2010 [facility] [place] [facility] [address] [id number] [place] [address] 9795 16 Dec, 2009 [facility] [place] [facility] [address] [id number] [place] [address] Dec, [facility] [place] [facility] [address] [id number] [place] [address] 18 Dec, 2009 [facility] [place] [facility] [address] [id number] [place] [address] Dec, [facility] [place] [facility] [address] [id number] [place] [address] Nov, [facility] [place] [facility] [address] [id number] [place] [address] 29 Oct, 2009 [facility] [place] [facility] [address] [id number] [place] [address] 135[address] 17 Oct, 2009 [facility] [place] [facility] [address] [id number] [address] 15 Oct, 2009 [facility] [place] [facility] [address] [id number] [address] 15 Oct, 2009 [facility] [place] [facility] [address] [id number] [place] [address] 254 24 Sep, 2009 [facility] [place] [facility] [address] [id number] [address] 03 Sep, 2009 [facility] [place] [facility] [address] [id number] [place] [address]26 29 Aug, 2009 [facility] [place] [facility] [address] [facility] [id number] [place] [address] Aug, [facility] [address] [facility] [id number] [address] Aug, [facility] [address] [id number] [address] Aug, [facility] [address] [facility] [id number] [address] Aug, [facility] [address] [facility] [id number] [address] Jun, IMMUNIZATIONS No Known Immunizations SOCIAL HISTORY Never Assessed REASON FOR VISIT f/u PLAN OF CARE Activity Details Follow Up 4 Weeks Reason: F/U VITAL SIGNS MEDICATIONS Unknown Medications RESULTS No Results PROCEDURES Procedure Date Ordered Result Body Site Psychotherapy, patient &/family, 45 minutes, established patient May 10, 2017 INSTRUCTIONS MEDICATIONS ADMINISTERED No Known Medications MEDICAL (GENERAL) HISTORY Type Description Date Medical History Tobacco abuse Surgical History tonsillectomy age 15 Surgical History cholecystectomy 2009 Surgical History colonoscopy 3 times Surgical History 4 natural births Hospitalization History Hospitalization for surgery only
--- OUTSIDE RECORDS SUMMARY | 2018-08-17 18:22 | XMS REPORT ---
Author Author CARLOSFABY GRIGGS [facility] Address [address] [place] [address] Care Team Providers Care [employer] Name Role Phone FABY GONZALEZ Unavailable PROBLEMS Type Condition ICD9-CM Code BRX59-FL Code Onset Dates Condition Status SNOMED Code Problem Major depressive disorder, recurrent episode, moderate F33.1 Active 407446705 Problem History of methamphetamine abuse Z87.898 Active 860166034 Problem Generalized anxiety disorder F41.1 Active 43037712 Problem Cervical high risk HPV (human papillomavirus) test positive R87.810 Active 734989322 Problem Atyp squam cell of undet signfc cyto smr crvx (ASC-US) R87.610 Active 257744223 Problem BMI 39.0-39.9,adult Z68.39 Active 781601174 Problem Recurrent major depressive disorder, in partial remission F33.41 Active 99317039 Problem Irritable bowel syndrome with diarrhea K58.0 Active 585689956 Problem Other chronic pain G89.29 Active 41138293 Problem Anxiety F41.9 Active 12929651 Problem Alkaline phosphatase elevation R74.8 Active [id number] ALLERGIES No Information ENCOUNTERS Encounter Location Date Diagnosis [place] [id number] [place] [address] 10989- 6004 March, [facility] [id number] [place] [address] 38381- 7054 Jan, Encounter for Depo-Provera contraception Z30.42 [facility] [id number] [place] [address] 89474- 4628 Jan, Generalized anxiety disorder F41.1 and Major depressive disorder, recurrent episode, moderate F33.1 [place] [id number] [place] [address] 28349- 9967 Dec, Anxiety F41.9 and Recurrent major depressive disorder, in partial remission F33.41 [facility] [id number] [place] [address] 90122- 4187 Nov, [place] [id number] [place] [address] 08006- 4105 Nov, Other chronic pain G89.29 ; Encounter for surveillance of injectable contraceptive Z30.42 ; BMI 39.0-39.9,adult Z68.39 and Encounter for Depo-Provera contraception Z30.42 [place] [id number] [place] [address] 71881- 3425 Sep, Anxiety F41.9 and Recurrent major depressive disorder, in partial remission F33.41 [place] [id number] [place] [address] 05700- 8570 Aug, Generalized anxiety disorder F41.1 and Major depressive disorder, recurrent episode, moderate F33.1 [place] [id number] [place] [address] 56430- 9575 Aug, [place] [id number] [place] [address] 41523- 3204 Aug, Anxiety F41.9 and Major depressive disorder, recurrent episode, moderate F33.1 [place] [id number] [place] [address] 98816- 9198 25 Jul, 2017 Encounter for immunization Z23 [place] [id number] [place] [address] 16024- 4785 19 Jul, 2017 [place] [id number] [place] [address] 41641- 7633 19 Jul, 2017 [place] [id number] [place] [address] 11766- 1099 14 Jul, 2017 Alkaline phosphatase elevation R74.8 [place] [id number] [place] [address] 63571- 0404 13 Jul, 2017 Encounter for annual physical exam Z00.00 [place] [id number] [address]- 4682 13 Jul, 2017 [facility] [id number] [place] [address] 87577- 2555 12 Jul, 2017 Dysuria R30.0 ; Routine gynecological examination Z01.419 and Screening breast examination Z12.31 [facility] [id number] [place] [address] 76155- 9049 12 Jul, 2017 Generalized anxiety disorder F41.1 and Major depressive disorder, recurrent episode, moderate F33.1 [place] [id number] [place] [address] 90020- 8328 08 Jul, 2017 [place] [id number] [place] [address] 33605- 8413 Jun, Generalized anxiety disorder F41.1 and Major depressive disorder, recurrent episode, moderate F33.1 [place] [id number] [place] [address] 06741- 5515 Jun, Other chronic pain G89.29 [facility] [id number] [place] [address] [id number] May, Dental caries K02.9 [place] [id number] [place] [address] 77596- 2671 10 May, 2017 Generalized anxiety disorder F41.1 and Major depressive disorder, recurrent episode, moderate F33.1 [facility] [id number] [place] [address] [id number] May, 2017 Dental examination Z01.20 [facility] [address] [address]- 6512 March, [facility] [id number] [place] [address] 36717- 1242 March, Generalized anxiety disorder F41.1 and Major depressive disorder, recurrent episode, moderate F33.1 [facility] [address] [address]- 3296 March, Encounter for annual physical exam Z00.00 and Other chronic pain G89.29 [facility] [id number] [place] [address] 27366- 8117 Jan, Generalized anxiety disorder F41.1 and Major depressive disorder, recurrent episode, moderate F33.1 [facility] [id number] [place] [address] 72105- 1684 Jan, [facility] [id number] [place] [address] 66329- 6694 Dec, Generalized anxiety disorder F41.1 and Major depressive disorder, recurrent episode, moderate F33.1 [place] [id number] [place] [address] 92766- 0445 Dec, Generalized anxiety disorder F41.1 and Major depressive disorder, recurrent episode, moderate F33.1 [place] [id number] [place] [address] 26604- 1158 Dec, [facility] [id number] [place] [address] 28343- 6800 Dec, Generalized anxiety disorder F41.1 and Major depressive disorder, recurrent episode, moderate F33.1 [place] [id number] [place] [address] 55006- 0590 15 Dec, 2016 Diarrhea, unspecified type R19.7 ; Irritable bowel syndrome with diarrhea K58.0 and Alkaline phosphatase elevation R74.8 [place] [address] [place] [address] 98110- 5312 Dec, Diarrhea, unspecified type R19.7 and Alkaline phosphatase elevation R74.8 [place] [address] [place] [address] 95215- 0986 Dec, Generalized anxiety disorder F41.1 and Major depressive disorder, recurrent episode, moderate F33.1 [facility] [address] [address]- 0318 Dec, Low back pain M54.5 [facility] [id number] [place] [address] 86945- 3672 Dec, Generalized anxiety disorder F41.1 and Major depressive disorder, recurrent episode, moderate F33.1 [place] [id number] [place] [address] 58976- 6297 Dec, Irritable bowel syndrome with diarrhea K58.0 and Diarrhea, unspecified type R19.7 [place] [address] 12116- 9496 Dec, [place] [address] 17790- 1040 Dec, Generalized anxiety disorder F41.1 and Major depressive disorder, recurrent episode, moderate F33.1 [facility] [id number] [place] [address] 75838 -2841 Nov, Cough R05 ; Viral illness B34.9 and Chronic diarrhea K52.9 [place] [id number] [place] [address] 09853- 1195 Nov, Generalized anxiety disorder F41.1 and Major depressive disorder, recurrent episode, moderate F33.1 [place] [id number] [place] [address] 89228- 7453 Nov, Encounter for Depo-Provera contraception Z30.42 [place] [id number] [place] [address] 85598- 4260 Nov, Generalized anxiety disorder F41.1 and Major depressive disorder, recurrent episode, moderate F33.1 [place] [id number] [place] [address] 79710- 1849 Nov, Low back pain M54.5 [place] [address] 02944- 8664 Oct, Generalized anxiety disorder F41.1 and Major depressive disorder, recurrent episode, moderate F33.1 [place] [id number] [place] [address] 94283- 0347 Sep, Low back pain M54.5 and Other chronic pain G89.29 [facility] [address] [place] [address] 19027- 4134 16 Sep, 2016 Generalized anxiety disorder F41.1 and Major depressive disorder, recurrent episode, moderate F33.1 [facility] [id number] [place] [address] 35858- 8796 Sep, Encounter for Depo-Provera contraception Z30.42 [facility] [id number] [place] [address] 00074- 2682 Jul, [facility] [id number] [place] [address] 26411- 0866 Jul, [facility] [id number] [place] [address] 56925- 3660 Jul, Encounter for immunization Z23 [facility] [id number] [place] [address] 39326- 4076 Jun, Encounter for Depo-Provera contraception Z30.42 [facility] [id number] [place] [address] 34477- 3728 Jun, Generalized anxiety disorder F41.1 and Major depressive disorder, recurrent episode, moderate F33.1 [facility] [address] [place] [address] 43623- 4726 May, Generalized anxiety disorder F41.1 and Major depressive disorder, recurrent episode, moderate F33.1 [facility] [id number] [place] [address] 15475- 3645 Apr, Generalized anxiety disorder F41.1 and Major depressive disorder, recurrent episode, moderate F33.1 [place] [id number] [place] [address] 64329- 0810 March, Encounter for Depo-Provera contraception Z30.42 [facility] [id number] [place] [address] 01510- 9080 March, Generalized anxiety disorder F41.1 and Major depressive disorder, recurrent episode, moderate F33.1 [place] [address] [place] [address] 55917- 2683 Jan, Generalized anxiety disorder F41.1 and Major depressive disorder, recurrent episode, moderate F33.1 [place] [id number] [place] [address] 54848- 0682 Jan, [facility] [id number] [place] [address] 38037 -1557 Jan, Oral infection K12.2 [place] [id number] [place] [address] 83157- 1328 Jan, Tobacco abuse Z72.0 and Hypokalemia E87.6 [place] [id number] [place] [address] 40153- 9719 Jan, [place] [address] 25673- 6003 Dec, Screening, lipid Z13.220 and Hypokalemia E87.6 [place] [id number] [place] [address] 34068- 0437 Dec, Screening, lipid Z13.220 ; Screening for diabetes mellitus Z13.1 and Tobacco abuse Z72.0 [place] [id number] [place] [address] 51880- 2694 Dec, Generalized anxiety disorder F41.1 and Major depressive disorder, recurrent episode, moderate F33.1 [place] [id number] [place] [address] 16369- 8144 03 Dec, 2015 Routine follow-up Z39.2 ; Encounter for Depo- Provera contraception Z30.42 ; Atyp squam cell of undet signfc cyto smr crvx ( ASC-US) R87.610 and Cervical high risk human papillomavirus (HPV) DNA test positive R87.810 [place] [address] [place] [address] 94395- 1290 Dec, Generalized anxiety disorder F41.1 and Major depressive disorder, recurrent episode, moderate F33.1 [place] [address] [place] [address] 63844- 8475 Nov, Unspecified high-risk O09.90 and 39 weeks gestation of Z3A.39 [place] [id number] [place] [address] 14217- 2405 Nov, Unspecified high-risk O09.90 and 38 weeks gestation of Z3A.38 [place] [address] 47041- 0679 Nov, Unspecified high-risk O09.90 ; Dental infection K04.7 and 37 weeks gestation of Z3A.37 [place] [id number] [place] [address] 29707- 5420 Oct, screening for streptococcus B Z36 ; 36 weeks gestation of Z3A.36 and Breech presentation, not applicable or unspecified fetus O32.1XX0 [place] [address] 28830- 2872 Oct, Unspecified high-risk O09.90 and 34 weeks gestation of Z3A.34 [place] [id number] [place] [address] 45694- 5992 Oct, 32 weeks gestation of Z3A.32 and Unspecified high- risk O09.90 [place] [id number] [place] [address] 47750- 6489 Sep, Encounter for immunization Z23 ; Unspecified high-risk O09.90 and 30 weeks gestation of Z3A.30 [place] [id number] [place] [address] 02792- 3615 Sep, Generalized anxiety disorder F41.1 and Major depressive disorder, recurrent episode, moderate F33.1 [place] [id number] [place] [address] 03413- 0649 Aug, Unspecified high-risk O09.90 [place] [id number] [place] [address] 36660- 4824 Aug, Unspecified high-risk O09.90 [place] [address] 68602- 9420 Aug, Dental infection K04.7 [place] [address] 90259- 2650 Aug, Dysuria R30.0 [place] [address] 26687- 1017 Aug, Dysuria R30.0 [place] [address] 43786- 5347 Jul, Influenza vaccine administered V04.81 [place] [address] 49852- 7833 Jul, Unspecified high-risk V23.9 [place] [address] 52671- 3569 Jul, Unspecified high-risk V23.9 and ASCUS with positive high risk HPV 796.9 [place] [address] 49717- 3587 Jul, [place] [id number] [place] [address] 68475- 5844 Jun, [place] [address] 98393- 5837 Jun, Unspecified high-risk V23.9 ; Pap test, as part of routine gynecological examination V76.2 and Screen for STD (sexually transmitted disease) V74.5 [place] [id number] [place] [address] 42671- 1882 Jun, test positive V72.42 ; Unspecified high-risk V23.9 ; UTI in 646.60 and Vomiting 643.90 [place] [address] 41566- 2546 Jun, [facility] [address] [id number] [place] [address]- 9114 Jun, [facility] [place] [facility] [address] [id number] [place] [address]- 8186 Jun, [facility] [place] [facility] [address] [facility] [id number] [place] [address]- 2538 May, [facility] [place] [facility] [address] [id number] [place] [address]- 7166 Apr, [facility] [address] [facility] [id number] [place] [address]- 2589 Apr, Absence of menstruation 626.0 [facility] [address] [facility] [id number] [place] [address]- 4128 Jan, [facility] [address] [facility] [id number] [place] [address]- 1401 Jan, [facility] [place] [facility] [address] [facility] [id number] [place] [address]- 5647 Dec, [facility] [place] [facility] [address] [facility] [id number] [place] [address]- 5886 Dec, [facility] [place] [facility] [address] [facility] [id number] [place] [address]- 8183 Dec, [facility] [place] [facility] [address] [facility] [id number] [place] [address]- 4852 Dec, [facility] [place] [facility] [address] [facility] [id number] [place] [address]- 1111 Nov, [facility] [place] [facility] [address] [id number] [place] [address]- 8931 Nov, [facility] [place] [facility] [address] [facility] [id number] [place] [address]- 8461 Nov, [facility] [place] [facility] [address] [facility] [id number] [place] [address]- 6034 Nov, [facility] [place] [facility] [address] [id number] [place] [address]- 6767 Nov, [facility] [place] [facility] [address] [id number] [place] [address]- 7797 Nov, [facility] [place] [facility] [address] [id number] [place] [address]- 8453 Nov, [facility] [place] [facility] [address] [id number] [place] [address]- 5150 Nov, [facility] [place] [facility] [address] [id number] [place] [address]- 7623 Oct, [facility] [place] [facility] [address] [id number] [place] [address]- 1211 Oct, [facility] [place] [facility] [address] [id number] [place] [address]- 2487 Oct, [facility] [place] [facility] [address] [id number] [place] [address]- 6124 Oct, [facility] [place] [facility] [address] [id number] [place] [address]- 8057 Sep, [facility] [place] [facility] [address] [id number] [place] [address]- 3811 Sep, [facility] [place] [facility] [address] [id number] [place] [address]- 3995 Jul, [facility] [place] [facility] [address] [id number] [place] [address]- 8941 Jul, [facility] [place] [facility] [address] [id number] [place] [address]- 1850 Apr, [facility] [place] [facility] [address] [id number] [place] [address]- 1178 Apr, [facility] [place] [facility] [address] [id number] [place] [address]- 8729 March, [facility] [place] [facility] [address] [id number] [place] [address]- 8020 March, [facility] [address] [id number] [place] [address]- 6489 March, [facility] [place] [facility] [address] [id number] [place] [address]- 8986 March, [facility] [place] [facility] [address] [id number] [place] [address]- 9205 Nov, [facility] [place] [facility] [address] [id number] [place] [address]- 0002 Nov, [facility] [place] [facility] [address] [id number] [place] [address]- 6391 Nov, [facility] [place] [facility] [address] [id number] [place] [address]- 0949 Nov, [facility] [place] [facility] [address] [id number] [place] [address]- 1254 Nov, [facility] [place] [facility] [address] [id number] [place] [address]- 9730 Nov, [facility] [place] [facility] [address] [id number] [place] [address]- 2611 Nov, [facility] [place] [facility] [address] [id number] [place] [address]- 2298 Nov, [facility] [place] [facility] [address] [id number] [place] [address]- 1850 Nov, [facility] [place] [facility] [address] [id number] [place] [address]- 4610 Nov, [facility] [place] [facility] [address] [id number] [place] [address]- 8279 Nov, [facility] [place] [facility] [address] [id number] [place] [address]- 1649 Oct, [facility] [place] [facility] [address] [id number] [place] [address]- 6128 Oct, [facility] [place] [facility] [address] [id number] [place] [address]- 4717 16 Oct, 2013 [facility] [address] [id number] [place] [address]- 2277 13 Oct, 2013 [facility] [place] [facility] [address] [id number] [place] [address]- 0206 13 Oct, 2013 [facility] [place] [facility] [address] [id number] [place] [address]- 1418 12 Oct, 2013 [facility] [place] [facility] [address] [id number] [place] [address]- 6672 11 Oct, 2013 [facility] [place] [facility] [address] [id number] [place] [address]- 1221 Oct, [facility] [place] [facility] [address] [id number] [place] [address]- 8401 Oct, [facility] [place] [facility] [address] [id number] [place] [address]- 0789 Oct, [facility] [address] [id number] [place] [address]- 7592 Oct, [facility] [place] [facility] [address] [id number] [place] [address]- 0362 Oct, [facility] [place] [facility] [address] [id number] [place] [address]- 0510 Sep, [facility] [place] [facility] [address] [id number] [place] [address]- 8806 Sep, [facility] [place] [facility] [address] [id number] [place] [address]- 3596 Sep, [facility] [place] [facility] [address] [id number] [place] [address]- 1958 Sep, [facility] [place] [facility] [address] [id number] [place] [address] Aug, [facility] [place] [facility] [address] [id number] [place] [address] Aug, [facility] [address] [id number] [place] [address] Aug, [facility] [place] [facility] [address] [id number] [place] [address] Aug, [facility] [place] [facility] [address] [id number] [place] [address] Jun, [facility] [place] [facility] [address] [id number] [place] [address] Jun, [facility] [address] [id number] [place] [address] Apr, [facility] [place] [facility] [address] [id number] [place] [address] March, [facility] [place] [facility] [address] [id number] [place] [address] 17 Jan, 2013 [facility] [place] [facility] [address] [id number] [place] [address] 16 Jan, 2013 [facility] [place] [facility] [address] [id number] [place] [address] 15 Jan, 2013 [facility] [place] [facility] [address] [id number] [place] [address] Jan, [facility] [place] [facility] [address] [id number] [place] [address] Dec, [facility] [place] [facility] [address] [id number] [place] [address] Dec, [facility] [place] [facility] [address] [id number] [place] [address] Dec, [facility] [place] [facility] [address] [id number] [address] Dec, [facility] [place] [facility] [address] [id number] [place] [address] Oct, [facility] [place] [facility] [address] [id number] [place] [address] Oct, [facility] [place] [facility] [address] [id number] [place] [address] Oct, [facility] [place] [facility] [address] [id number] [place] [address] Oct, [facility] [place] [facility] [address] [id number] [place] [address] Oct, [facility] [place] [facility] [address] [id number] [place] [address] Oct, [facility] [place] [facility] [address] [id number] [place] [address] Sep, [facility] [place] [facility] [address] [id number] [place] [address] Sep, [facility] [place] [facility] [address] [facility] [id number] [place] [address] Aug, [facility] [place] [facility] [address] [id number] [place] [address] Aug, [facility] [place] [facility] [address] [id number] [place] [address] Aug, [facility] [place] [facility] [address] [facility] [id number] [place] [address] Jul, [facility] [place] [facility] [address] [id number] [place] [address] Jul, [facility] [place] [facility] [address] [id number] [place] [address] Jul, [facility] [place] [facility] [address] [id number] [place] [address] Jul, [facility] [place] [facility] [address] [facility] [id number] [place] [address] Jun, [facility] [place] [facility] [address] [facility] [id number] [place] [address] Jun, [facility] [place] [facility] [address] [id number] [place] [address] Jun, [facility] [place] [facility] [address] [id number] [place] [address] Jun, [facility] [place] [facility] [address] [id number] [place] [address] Jun, [facility] [place] [facility] [address] [id number] [place] [address] May, [facility] [address] [id number] [place] [address] May, [facility] [place] [facility] [address] [id number] [place] [address] Apr, [facility] [address] [id number] [place] [address] Apr, [facility] [address] [id number] [place] [address] Apr, [facility] [place] [facility] [address] [id number] [place] [address] March, [facility] [place] [facility] [address] [id number] [place] [address] March, [facility] [place] [facility] [address] [id number] [place] [address] March, [facility] [place] [facility] [address] [id number] [place] [address] Jan, [facility] [place] [facility] [address] [id number] [place] [address] Dec, [facility] [place] [facility] [address] [id number] [place] [address] Dec, [facility] [place] [facility] [address] [id number] [place] [address] Dec, [facility] [place] [facility] [address] [id number] [place] [address] Dec, [facility] [address] [id number] [place] [address] Dec, [facility] [place] [facility] [address] [id number] [place] [address] 16 Dec, 2011 [facility] [address] [id number] [place] [address] Dec, [facility] [place] [facility] [address] [id number] [place] [address] 29 Dec, 2011 [facility] [place] [facility] [address] [id number] [place] [address] 8427 28 Dec, 2011 [facility] [place] [facility] [address] [id number] [place] [address]36 21 Dec, 2011 [facility] [address] [id number] [place] [address] 13 Dec, 2011 [facility] [place] [facility] [address] [id number] [place] [address] Dec, [facility] [place] [facility] [address] [id number] [place] [address] 10 Dec, 2011 [facility] [place] [facility] [address] [facility] [id number] [place] [address] Nov, [facility] [place] [facility] [address] [id number] [place] [address] 24 Nov, 2011 [facility] [place] [facility] [address] [id number] [place] [address] 2541 Nov, [facility] [place] [facility] [address] [id number] [place] [address] Nov, [facility] [place] [facility] [address] [id number] [place] [address] 17 Nov, 2011 [facility] [place] [facility] [address] [facility] [id number] [place] [address]266 16 Nov, 2011 [facility] [place] [facility] [address] [id number] [place] [address] Nov, [facility] [place] [facility] [address] [id number] [place] [address] Nov, [facility] [place] [facility] [address] [id number] [place] [address] Oct, [facility] [place] [facility] [address] [id number] [place] [address] Oct, [facility] [place] [facility] [address] [id number] [place] [address] 15 Oct, 2011 [facility] [place] [facility] [address] [id number] [place] [address]286 15 Oct, 2011 [facility] [place] [facility] [address] [id number] [place] [address] Oct, [facility] [place] [facility] [address] [id number] [place] [address] Oct, [facility] [place] [facility] [address] [id number] [place] [address] 3467 Oct, [facility] [place] [facility] [address] [id number] [place] [address]- 1777 23 Sep, 2011 [facility] [place] [facility] [address] [id number] [place] [address] 18 Sep, 2011 [facility] [place] [facility] [address] [id number] [place] [address] 1464 18 Sep, 2011 [facility] [place] [facility] [address] [id number] [place] [address]- 42[address] 16 Sep, 2011 [facility] [place] [facility] [address] [id number] [place] [address]- 7061 16 Sep, 2011 [facility] [place] [facility] [address] [id number] [place] [address]- 113[address] 08 Sep, 2011 [facility] [place] [facility] [address] [id number] [place] [address] Sep, [facility] [place] [facility] [address] [id number] [place] [address]- [address]697 Aug, [facility] [place] [facility] [address] [id number] [place] [address]- [address] Aug, [facility] [place] [facility] [address] [id number] [place] [address]- [address]708 Jun, [facility] [place] [facility] [address] [id number] [place] [address] Oct, [facility] [place] [facility] [address] [id number] [place] [address]- [address] Oct, [facility] [place] [facility] [address] [id number] [place] [address] 08 Oct, 2010 [facility] [place] [facility] [address] [id number] [place] [address]- [address]958 16 Dec, 2009 [facility] [place] [facility] [address] [id number] [place] [address]- 2008 Dec, [facility] [place] [facility] [address] [id number] [place] [address]286 18 Dec, 2009 [facility] [place] [facility] [address] [id number] [place] [address]- 6771 Dec, [facility] [place] [facility] [address] [id number] [place] [address]- 4385 Nov, [facility] [place] [facility] [address] [id number] [place] [address]- [address] 29 Oct, 2009 [facility] [place] [facility] [address] [id number] [place] [address] 8344 17 Oct, 2009 [facility] [place] [facility] [address] [id number] [place] [address] 15 Oct, 2009 [facility] [place] [facility] [address] [id number] [place] [address] 15 Oct, 2009 [facility] [place] [facility] [id number] [address] Sep, [facility] [id number] [address] Sep, [facility] [id number] [address] Aug, [facility] [id number] [address] Aug, [facility] [id number] [address] Aug, [facility] [id number] [address] Aug, [facility] [id number] [address]- [address] Aug, [facility] [id number] [address] Jun, IMMUNIZATIONS No Known Immunizations SOCIAL HISTORY Never Assessed REASON FOR VISIT Add on lab PLAN OF CARE VITAL SIGNS MEDICATIONS Unknown Medications RESULTS No Results PROCEDURES Procedure Date Ordered Result Body Site LAB NOT BILLED BY [facility] Jul 15, 2017 INSTRUCTIONS MEDICATIONS ADMINISTERED No Known Medications MEDICAL (GENERAL) HISTORY Type Description Date Medical History Tobacco abuse Surgical History tonsillectomy age 15 Surgical History cholecystectomy 2009 Surgical History colonoscopy 3 times Surgical History 4 natural births Hospitalization History Hospitalization for surgery only
--- OUTSIDE RECORDS SUMMARY | 2018-08-17 18:23 | XMS REPORT ---
Author Author CHEKO BURNETT [facility] Address Unknown Care Team Providers Care Lidar Technician Name Role Phone CHEKO BURNETT Unavailable PROBLEMS Type Condition ICD9-CM Code XQU28-SP Code Onset Dates Condition Status SNOMED Code Problem Major depressive disorder, recurrent episode, moderate F33.1 Active 309827513 Problem History of methamphetamine abuse Z87.898 Active 479605374 Problem Generalized anxiety disorder F41.1 Active 24968184 Problem Cervical high risk HPV (human papillomavirus) test positive R87.810 Active 876008865 Problem Atyp squam cell of undet signfc cyto smr crvx (ASC-US) R87.610 Active 437125376 Problem BMI 39.0-39.9,adult Z68.39 Active 757112770 Problem Recurrent major depressive disorder, in partial remission F33.41 Active 84294445 Problem Irritable bowel syndrome with diarrhea K58.0 Active 881560460 Problem Other chronic pain G89.29 Active 34116073 Problem Anxiety F41.9 Active 06107359 Problem Alkaline phosphatase elevation R74.8 Active 139208439 ALLERGIES Substance Reaction Event Type Date Status Naproxen Unknown Drug Allergy May, Active ENCOUNTERS Encounter Location Date Diagnosis [facility] [id number] [place] [address] 34036- 3215 Jan, [facility] [id number] [place] [address] 77240- 8276 Dec, Anxiety F41.9 and Recurrent major depressive disorder, in partial remission F33.41 [facility] [id number] [place] [address] 17225- 6126 Nov, [facility] [id number] [place] [address] 06286- 4086 Nov, Other chronic pain G89.29 ; Encounter for surveillance of injectable contraceptive Z30.42 ; BMI 39.0-39.9,adult Z68.39 and Encounter for Depo-Provera contraception Z30.42 [place] [address] [id number]- 6095 Sep, Anxiety F41.9 and Recurrent major depressive disorder, in partial remission F33.41 [place] [address] 22217- 3871 Aug, Generalized anxiety disorder F41.1 and Major depressive disorder, recurrent episode, moderate F33.1 [place] [address] 35172- 3797 Aug, [place] [address] 57992- 0072 Aug, Anxiety F41.9 and Major depressive disorder, recurrent episode, moderate F33.1 [place] [address] 04668- 5900 Jul, Encounter for immunization Z23 [place] [address] 65296- 0182 19 Jul, 2017 [place] [address] 41369- 0559 Jul, [place] [address] 78119- 2253 14 Jul, 2017 Alkaline phosphatase elevation R74.8 [place] [address] 04116- 9601 13 Jul, 2017 Encounter for annual physical exam Z00.00 [place] [address] 53791- 2178 13 Jul, 2017 [place] [address] 86779- 1322 12 Jul, 2017 Routine gynecological examination Z01.419 ; Dysuria R30.0 and Screening breast examination Z12.31 [place] [address] 877822- 2546 Jul, Generalized anxiety disorder F41.1 and Major depressive disorder, recurrent episode, moderate F33.1 [facility] [id number] [place] [address] 21601- 5745 Jul, [facility] [id number] [place] [address] 44467- 0862 Jun, Generalized anxiety disorder F41.1 and Major depressive disorder, recurrent episode, moderate F33.1 [facility] [id number] [place] [address] 62699- 7931 Jun, Other chronic pain G89.29 [facility] [id number] [place] [address] [id number] May, Dental caries K02.9 [facility] [id number] [place] [address] 11503- 3532 May, Generalized anxiety disorder F41.1 and Major depressive disorder, recurrent episode, moderate F33.1 [facility] [id number] [place] [address] [id number] May, Dental examination Z01.20 [facility] [id number] [place] [address] 74503- 9910 March, [facility] [id number] [place] [address] 67258- 2424 March, Generalized anxiety disorder F41.1 and Major depressive disorder, recurrent episode, moderate F33.1 [facility] [id number] [place] [address] 24831- 2000 March, Encounter for annual physical exam Z00.00 and Other chronic pain G89.29 [facility] [id number] [place] [address] 93356- 5028 Jan, Generalized anxiety disorder F41.1 and Major depressive disorder, recurrent episode, moderate F33.1 [facility] [id number] [place] [address] 98183- 7125 Jan, [facility] [address] [address]- 4394 29 Dec, 2016 Generalized anxiety disorder F41.1 and Major depressive disorder, recurrent episode, moderate F33.1 [place] [address] [address]- 6500 17 Dec, 2016 Generalized anxiety disorder F41.1 and Major depressive disorder, recurrent episode, moderate F33.1 [place] [address] [place] [address] 27270- 2272 Dec, [place] [address] [place] [address] 46591- 4505 Dec, Generalized anxiety disorder F41.1 and Major depressive disorder, recurrent episode, moderate F33.1 [place] [address] [address]- 0155 Dec, Diarrhea, unspecified type R19.7 ; Irritable bowel syndrome with diarrhea K58.0 and Alkaline phosphatase elevation R74.8 [place] [address] [address]- 7822 Dec, Diarrhea, unspecified type R19.7 and Alkaline phosphatase elevation R74.8 [place] [address] [address]- 6307 Dec, Generalized anxiety disorder F41.1 and Major depressive disorder, recurrent episode, moderate F33.1 [place] [address] [address]- 7329 Dec, Low back pain M54.5 [place] [address] [place] [address] 26827- 0794 Dec, Generalized anxiety disorder F41.1 and Major depressive disorder, recurrent episode, moderate F33.1 [place] [address] [address]- 9239 Dec, Irritable bowel syndrome with diarrhea K58.0 and Diarrhea, unspecified type R19.7 [place] [id number] [place] [address] 67191- 6570 Dec, [place] [address] 68443- 2872 Dec, Generalized anxiety disorder F41.1 and Major depressive disorder, recurrent episode, moderate F33.1 [facility] [id number] [place] [address] 69745 -6995 Nov, Cough R05 ; Viral illness B34.9 and Chronic diarrhea K52.9 [place] [id number] [place] [address] 10802- 9733 Nov, Generalized anxiety disorder F41.1 and Major depressive disorder, recurrent episode, moderate F33.1 [place] [id number] [place] [address] 31401- 0396 Nov, Encounter for Depo-Provera contraception Z30.42 [place] [address] 26796- 4576 Nov, Generalized anxiety disorder F41.1 and Major depressive disorder, recurrent episode, moderate F33.1 [place] [id number] [place] [address] 53459- 8936 Nov, Low back pain M54.5 [place] [id number] [place] [address] 54034- 5006 Oct, Generalized anxiety disorder F41.1 and Major depressive disorder, recurrent episode, moderate F33.1 [place] [id number] [place] [address] 64756- 3823 Sep, Low back pain M54.5 and Other chronic pain G89.29 [place] [address] 36481- 7677 Sep, Generalized anxiety disorder F41.1 and Major depressive disorder, recurrent episode, moderate F33.1 [place] [id number] [place] [address] 49722- 2383 Sep, Encounter for Depo-Provera contraception Z30.42 [facility] [address] [address]- 6198 Jul, [facility] [id number] [place] [address] 52153- 4515 Jul, [facility] [id number] [place] [address] 59476- 7447 Jul, Encounter for immunization Z23 [facility] [id number] [place] [address] 15404- 8876 Jun, Encounter for Depo-Provera contraception Z30.42 [facility] [id number] [place] [address] 01338- 6130 Jun, Generalized anxiety disorder F41.1 and Major depressive disorder, recurrent episode, moderate F33.1 [facility] [id number] [place] [address] 68547- 2978 May, Generalized anxiety disorder F41.1 and Major depressive disorder, recurrent episode, moderate F33.1 [facility] [address] [place] [address] 53999- 5829 Apr, Generalized anxiety disorder F41.1 and Major depressive disorder, recurrent episode, moderate F33.1 [facility] [address] [place] [address] 57539- 8076 March, Encounter for Depo-Provera contraception Z30.42 [facility] [id number] [place] [address] 28001- 4616 March, Generalized anxiety disorder F41.1 and Major depressive disorder, recurrent episode, moderate F33.1 [facility] [id number] [place] [address] 64385- 7026 Jan, Generalized anxiety disorder F41.1 and Major depressive disorder, recurrent episode, moderate F33.1 [facility] [address] [address]- 0491 Jan, [facility] [id number] [place] [address] 73150 -8505 Jan, Oral infection K12.2 [place] [address] 49593- 2623 Jan, Tobacco abuse Z72.0 and Hypokalemia E87.6 [place] [id number] [place] [address] 54982- 7591 Jan, [place] [address] 10030- 7450 Dec, Screening, lipid Z13.220 and Hypokalemia E87.6 [place] [address] 44312- 1045 Dec, Screening, lipid Z13.220 ; Screening for diabetes mellitus Z13.1 and Tobacco abuse Z72.0 [place] [address] 89279- 8759 Dec, Generalized anxiety disorder F41.1 and Major depressive disorder, recurrent episode, moderate F33.1 [place] [address] 91914- 9610 Dec, Routine follow-up Z39.2 ; Encounter for Depo- Provera contraception Z30.42 ; Atyp squam cell of undet signfc cyto smr crvx ( ASC-US) R87.610 and Cervical high risk human papillomavirus (HPV) DNA test positive R87.810 [place] [id number] [place] [address] 41170- 1178 Dec, Generalized anxiety disorder F41.1 and Major depressive disorder, recurrent episode, moderate F33.1 [id number] [place] [address] 31978- 8559 Nov, Unspecified high-risk O09.90 and 39 weeks gestation of Z3A.[address] 14868- 5340 Nov, Unspecified high-risk O09.90 and 38 weeks gestation of Z3A.38 [place] [id number] [place] [address] 26232- 8661 Nov, Unspecified high-risk O09.90 ; Dental infection K04.7 and 37 weeks gestation of Z3A.37 [place] [id number] [place] [address] 64175- 1437 Oct, screening for streptococcus B Z36 ; 36 weeks gestation of Z3A.36 and Breech presentation, not applicable or unspecified fetus O32.1XX0 [place] [id number] [place] [address] 57197- 7836 Oct, Unspecified high-risk O09.90 and 34 weeks gestation of Z3A.34 [place] [id number] [place] [address] 13223- 9223 Oct, 32 weeks gestation of Z3A.32 and Unspecified high- risk O09.90 [place] [id number] [place] [address] 28621- 3048 Sep, Unspecified high-risk O09.90 ; Encounter for immunization Z23 and 30 weeks gestation of Z3A.30 [place] [id number] [place] [address] 56221- 3602 Sep, Generalized anxiety disorder F41.1 and Major depressive disorder, recurrent episode, moderate F33.1 [place] [id number] [place] [address] 86316- 2008 Aug, Unspecified high-risk O09.90 [place] [id number] [place] [address] 82301- 7062 Aug, Unspecified high-risk O09.90 [place] [id number] [place] [address] 47224- 4454 Aug, Dental infection K04.7 [place] [id number] [place] [address] 17204- 4216 Aug, Dysuria R30.0 [place] [address] [place] [address] 91253- 5180 Aug, Dysuria R30.0 [place] [id number] [place] [address] 55796- 7910 Jul, Influenza vaccine administered V04.81 [place] [id number] [place] [address] 76395- 5941 Jul, Unspecified high-risk V23.9 [place] [id number] [place] [address] 66775- 5607 Jul, Unspecified high-risk V23.9 and ASCUS with positive high risk HPV 796.9 [place] [id number] [place] [address] 88009- 5199 Jul, [place] [id number] [place] [address] 82527- 5105 Jun, [place] [id number] [place] [address] 25328- 0599 Jun, Unspecified high-risk V23.9 ; Pap test, as part of routine gynecological examination V76.2 and Screen for STD (sexually transmitted disease) V74.5 [place] [id number] [place] [address] 88031- 1683 Jun, test positive V72.42 ; Unspecified high-risk V23.9 ; UTI in 646.60 and Vomiting 643.90 [place] [address] [place] [address] 10500- 0913 Jun, [place] [id number] [place] [address] 84477- 3940 Jun, [place] [id number] [place] [address] 04005- 2098 Jun, [place] [id number] [place] [address] 96049- 2546 May, [facility] [address] [id number] [place] [address]- 6585 Apr, [facility] [address] [facility] [id number] [place] [address]- 6958 Apr, Absence of menstruation 626.0 [facility] [address] [id number] [place] [address]- 9296 Jan, [facility] [place] [facility] [address] [id number] [address]- 2333 Jan, [facility] [address] [facility] [id number] [place] [address]- 3977 Dec, [facility] [place] [facility] [address] [facility] [id number] [place] [address]- 9463 Dec, [facility] [id number] [place] [address]- 5335 Dec, [facility] [address] [facility] [id number] [place] [address]- 6021 Dec, [facility] [place] [facility] [id number] [place] [address]- 2324 Nov, [facility] [address] [facility] [id number], [place] [address]- 3637 Nov, [facility] [place] [facility] [address] [facility] [id number] [address]- 6180 Nov, [facility] [place] [facility] [address] [facility] [id number], [place] [address]- 9770 Nov, [facility] [place] [facility] [address] [facility] [id number] [place] [address]- 6640 Nov, [facility] [place] [facility] [address] [facility] [id number]- 1576 Nov, [facility] [place] [facility] [address] [facility] [id number], [place] [address]- 7037 Nov, [facility] [place] [facility] [address] [id number] [place] [address]- 3398 Nov, [facility] [place] [facility] [address] [id number] [place] 8550 Oct, [facility] [place] [facility] [address] [id number] [place] [address]- 5865 Oct, [facility] [place] [facility] [address] [id number] [place] [address]- 7608 Oct, [facility] [place] [facility] [address] [id number] [place] [address]- 2749 Oct, [facility] [place] [facility] [address] [id number] [place] [address]- 1357 Sep, [facility] [place] [facility] [address] [id number] [place] [address]- 0920 Sep, [facility] [place] [facility] [address] [id number] [place] [address]- 5186 Jul, [facility] [place] [facility] [address] [id number] [place] [address]- 7952 Jul, [facility] [place] [facility] [address] [id number] [place] [address]- 5963 Apr, [facility] [place] [facility] [address] [id number] [place] [address]- 7676 Apr, [facility] [place] [facility] [address] [id number], [place] [address]- 2908 March, [facility] [place] [facility] [address] [id number] [place] [address]- 5512 March, [facility] [place] [facility] [address] [id number] [place] [address]- 9514 March, [facility] [place] [facility] [address] [id number] [place] [address]- 3210 March, [facility] [place] [facility] [address] [id number], [place] [address]- 7821 Nov, [facility] [address] [id number] [place] [address]- 1607 Nov, [facility] [place] [facility] [address] [id number] [place] [address]- 8233 Nov, [facility] [place] [facility] [address] [id number] [place] [address]- 0842 Nov, [facility] [place] [facility] [address] [id number] [place] [address]- 5923 Nov, [facility] [place] [facility] [address] [id number] [place] [address]- 9452 Nov, [facility] [place] [facility] [address] [id number] [place] [address]- 8160 Nov, [facility] [address] [id number] [place] [address]- 0770 Nov, [facility] [place] [facility] [address] [id number] [place] [address]- 7512 Nov, [facility] [address] [id number] [place] [address]- 5663 Nov, [facility] [place] [facility] [address] [id number] [place] [address]- 2667 Nov, [facility] [place] [facility] [address] [id number] [place] [address]- 9609 Oct, [facility] [place] [facility] [address] [id number] [place] [address]- 6851 16 Oct, 2013 [facility] [place] [facility] [address] [id number] [place] [address]- 8165 16 Oct, 2013 [facility] [place] [facility] [address] [id number] [place] [address]- 5458 13 Oct, 2013 [facility] [place] [facility] [address] [id number] [place] [address]- 0339 13 Oct, 2013 [facility] [place] [facility] [address] [id number] [place] [address]- 9704 Oct, [facility] [address] [id number] [place] [address]- 1263 Oct, [facility] [place] [facility] [address] [id number] [place] 8782 Oct, [facility] [place] [facility] [address] [id number] [place] [address]- 5311 Oct, [facility] [place] [facility] [address] [id number] [place] [address]- 4394 Oct, [facility] [place] [facility] [address] [id number] [place] [address]- 3535 Oct, [facility] [place] [facility] [address] [id number] [place] [address]- 5153 Oct, [facility] [place] [facility] [address] [id number] [place] [address]- 2247 Sep, [facility] [place] [facility] [address] [id number] [place] [address]- 5988 Sep, [facility] [place] [facility] [address] [id number] [place] [address]- 0345 Sep, [facility] [place] [facility] [address] [id number] [place] [address]- 4632 Sep, [facility] [place] [facility] [address] [id number] [place] [address]- 6940 Aug, [facility] [place] [facility] [address] [id number] [place] [address]- 4892 Aug, [facility] [place] [facility] [address] [id number] [place] [address]- 4508 Aug, [facility] [place] [facility] [address] [id number] [place] [address]- 2546 Aug, [facility] [place] [facility] [address] [id number] [place] [address]- 5162 Jun, [facility] [address] [id number] [place] [address]- 8694 Jun, [facility] [place] [facility] [address] [id number] [place] [address]- 3871 Apr, [facility] [place] [facility] [address] [id number] [place] [address]- 8826 March, [facility] [place] [facility] [address] [id number] [place] [address]- 6330 Jan, [facility] [address] [id number] [place] [address]- 9236 16 Jan, 2013 [facility] [place] [facility] [address] [id number] [place] [address]- 9010 15 Jan, 2013 [facility] [address] [id number] [place] [address]- 2610 Jan, [facility] [place] [facility] [address] [id number] [place] [address] Dec, [facility] [place] [facility] [address] [id number] [place] [address] Dec, [facility] [place] [facility] [address] [id number] [place] [address] Dec, [facility] [place] [facility] [address] [id number] [place] [address] Dec, [facility] [place] [facility] [address] [id number] [place] [address] Oct, [facility] [place] [facility] [address] [id number] [place] [address] Oct, [facility] [place] [facility] [address] [id number] [place] [address] Oct, [facility] [place] [facility] [address] [id number] [place] [address] Oct, [facility] [place] [facility] [address] [id number] [place] [address] Oct, [facility] [place] [facility] [address] [id number] [place] [address] Oct, [facility] [place] [facility] [address] [id number] [place] [address] Sep, [facility] [place] [facility] [address] [id number] [place] [address] Sep, [facility] [place] [facility] [address] [id number] [place] [address] Aug, [facility] [place] [facility] [address] [id number] [place] [address] Aug, [facility] [place] [facility] [address] [id number] [place] [address] Aug, [facility] [place] [facility] [address] [id number] [place] [address] Jul, [facility] [place] [facility] [address] [id number] [place] [address] Jul, [facility] [place] [facility] [address] [id number] [place] [address] Jul, [facility] [place] [facility] [address] [facility] [id number] [place] [address] Jul, [facility] [place] [facility] [address] [id number] [place] [address] Jun, [facility] [place] [facility] [address] [id number] [place] [address] Jun, [facility] [place] [facility] [address] [id number] [place] [address] Jun, [facility] [place] [facility] [address] [facility] [id number] [place] [address] Jun, [facility] [place] [facility] [address] [id number] [place] [address] Jun, [facility] [place] [facility] [address] [id number] [place] [address] May, [facility] [place] [facility] [address] [id number] [place] [address] May, [facility] [place] [facility] [address] [id number] [place] [address] Apr, [facility] [place] [facility] [address] [id number] [place] [address] Apr, [facility] [address] [id number] [place] [address] Apr, [facility] [address] [id number] [place] [address] March, [facility] [address] [id number] [place] [address] March, [facility] [address] [id number] [place] [address] March, [facility] [address] [id number] [place] [address] Jan, [facility] [address] [id number] [place] [address] Dec, [facility] [place] [facility] [address] [id number] [place] [address] Dec, [facility] [place] [facility] [address] [id number] [place] [address] Dec, [facility] [place] [facility] [address] [id number] [place] [address] Dec, [facility] [place] [facility] [address] [id number] [place] [address] 19 Dec, 2011 [facility] [place] [facility] [address] [id number] [place] [address] 16 Dec, 2011 [facility] [place] [facility] [address] [id number] [place] [address] Dec, [facility] [address] [id number] [place] [address] 29 Dec, 2011 [facility] [place] [facility] [address] [id number] [place] [address] 1996 28 Dec, 2011 [facility] [address] [id number] [place] [address] 21 Dec, 2011 [facility] [place] [facility] [address] [id number] [place] [address] 13 Dec, 2011 [facility] [address] [id number] [place] [address] Dec, [facility] [address] [id number] [place] [address] Dec, [facility] [address] [id number] [place] [address] Nov, [facility] [address] [id number] [place] [address] Nov, [facility] [address] [id number] [place] [address] 1994 Nov, [facility] [address] [facility] [id number] [place] [address] Nov, [facility] [address] [id number] [place] [address] Nov, [facility] [place] [facility] [address] [id number] [place] [address] Nov, [facility] [place] [facility] [address] [id number] [place] [address] Nov, [facility] [place] [facility] [address] [id number] [place] [address] Nov, [facility] [place] [facility] [address] [id number] [place] [address] Oct, [facility] [place] [facility] [address] [id number] [place] [address] Oct, [facility] [place] [facility] [address] [id number] [place] [address] 15 Oct, 2011 [facility] [place] [facility] [address] [id number] [place] [address] 15 Oct, 2011 [facility] [place] [facility] [address] [id number] [place] [address] Oct, [facility] [place] [facility] [address] [id number] [place] [address] 13 Oct, 2011 [facility] [place] [facility] [address] [id number] [place] [address] Oct, [facility] [place] [facility] [address] [id number] [place] [address] 23 Sep, 2011 [facility] [place] [facility] [address] [id number] [place] [address] 18 Sep, 2011 [facility] [place] [facility] [address] [id number] [place] [address]68 18 Sep, 2011 [facility] [place] [facility] [address] [id number] [place] [address] 16 Sep, 2011 [facility] [place] [facility] [address] [id number] [place] [address]225 16 Sep, 2011 [facility] [place] [facility] [address] [id number] [place] [address] 08 Sep, 2011 [facility] [place] [facility] [address] [id number] [place] [address] Sep, [facility] [place] [facility] [address] [id number] [place] [address] 24 Aug, 2011 [facility] [place] [facility] [address] [id number] [place] [address] 24 Aug, 2011 [facility] [place] [facility] [address] [id number] [place] [address] Jun, [facility] [address] [id number] [place] [address] 23 Oct, 2010 [facility] [place] [facility] [address] [id number] [place] [address] 19 Oct, 2010 [facility] [place] [facility] [address] [id number] [place] [address]- [address] 08 Oct, 2010 [facility] [place] [facility] [address] [id number] [place] [address]30 16 Dec, 2009 [facility] [place] [facility] [address] [id number] [place] [address] Dec, [facility] [place] [facility] [address] [id number] [place] [address] 18 Dec, 2009 [facility] [place] [facility] [address] [id number] [place] [address] Dec, [facility] [place] [facility] [address] [id number] [place] [address] Nov, [facility] [place] [facility] [address] [id number] [place] [address] 29 Oct, 2009 [facility] [place] [facility] [address] [id number] [place] [address]- 8914 17 Oct, 2009 [facility] [place] [facility] [address] [id number], [place] [address] 15 Oct, 2009 [facility] [place] [facility] [address] [id number] [address] 15 Oct, 2009 [facility] [place] [facility] [address] [id number] [place] [address]40 24 Sep, 2009 [facility] [place] [facility] [address] [id number], [place] [address] 03 Sep, 2009 [facility] [place] [facility] [address] [id number] [place] [address] 89[address] 29 Aug, 2009 [facility] [place] [facility] [address] [facility] [id number] [place] [address] Aug, [facility] [address] [facility] [id number] [address] Aug, [facility] [address] [facility] [id number], [place] [address] Aug, [facility] [address] [facility] [id number], [place] [address] Aug, [facility] [address] [facility] [id number], [place] [address] Jun, IMMUNIZATIONS No Known Immunizations SOCIAL HISTORY Never Assessed REASON FOR VISIT WALK IN PAIN PLAN OF CARE Activity Details Follow Up 1 Week Reason:TE #28 & 27 VITAL SIGNS Blood pressure systolic 138 mmHg 2017-05-05 Blood pressure diastolic 98 mmHg 2017-05-05 MEDICATIONS Medication Instructions Dosage Frequency Start Date End Date Duration Status Zithromax 250 MG Orally Once a day 2 tablets on the first day, then 1 tablet daily for 4 days 24h 5 day(s) Active Viibryd 20 MG Orally Once a day 1 tablets with food 24h Active RESULTS No Results PROCEDURES Procedure Date Ordered Result Body Site LTD ORAL EVALUATION - PROBLEM FOCUS May 05, 2017 INTRAORL-PERIAPICAL 1 FILM [id number] May 05, 2017 INSTRUCTIONS MEDICATIONS ADMINISTERED No Known Medications MEDICAL (GENERAL) HISTORY Type Description Date Medical History Tobacco abuse Surgical History tonsillectomy age 15 Surgical History cholecystectomy 2010 Surgical History colonoscopy 3 times Surgical History 4 natural births Hospitalization History Hospitalization for surgery only
--- OUTSIDE RECORDS SUMMARY | 2018-08-17 18:24 | XMS REPORT ---
Author Author CHEKO BURNETT [facility] Address Unknown Care Team Providers Care Geodetic Computator Name Role Phone CHEKO BURNETT Unavailable PROBLEMS Type Condition ICD9-CM Code [id number] Code Onset Dates Condition Status SNOMED Code Problem Major depressive disorder, recurrent episode, moderate F33.1 Active 616227293 Problem History of methamphetamine abuse Z87.898 Active 243734133 Problem Generalized anxiety disorder F41.1 Active 41127128 Problem Cervical high risk HPV (human papillomavirus) test positive R87.810 Active 957232990 Problem Atyp squam cell of undet signfc cyto smr crvx (ASC-US) R87.610 Active 577650621 Problem BMI 39.0-39.9,adult Z68.39 Active 176667409 Problem Recurrent major depressive disorder, in partial remission F33.41 Active 70599266 Problem Irritable bowel syndrome with diarrhea K58.0 Active 031119924 Problem Other chronic pain G89.29 Active 20270329 Problem Anxiety F41.9 Active 32634781 Problem Alkaline phosphatase elevation R74.8 Active 078566142 ALLERGIES Substance Reaction Event Type Date Status Naproxen Unknown Drug Allergy May, Active ENCOUNTERS Encounter Location Date Diagnosis [facility] [id number] [place] [address] 95951- 7160 Jan, [facility] [id number] [place] [address] 19123- 2600 Dec, Anxiety F41.9 and Recurrent major depressive disorder, in partial remission F33.41 [facility] [id number] [place] [address] 12776- 5741 Nov, [facility] [id number] [place] [address] 22697- 4490 Nov, Other chronic pain G89.29 ; Encounter for surveillance of injectable contraceptive Z30.42 ; BMI 39.0-39.9,adult Z68.39 and Encounter for Depo-Provera contraception Z30.42 [place] [id number]- 3021 Sep, Anxiety F41.9 and Recurrent major depressive disorder, in partial remission F33.41 [place] [address] 36045- 8767 Aug, Generalized anxiety disorder F41.1 and Major depressive disorder, recurrent episode, moderate F33.1 [place] [address] 23854- 1640 Aug, [place] [address] 10558- 0214 Aug, Anxiety F41.9 and Major depressive disorder, recurrent episode, moderate F33.1 [place] [address] 60102- 3174 Jul, Encounter for immunization Z23 [place] [address] 66541- 9731 19 Jul, 2017 [place] [address] 19487- 4671 Jul, [place] [address] 06079- 8395 14 Jul, 2017 Alkaline phosphatase elevation R74.8 [place] [address] 62682- 8737 13 Jul, 2017 Encounter for annual physical exam Z00.00 [place] [address] 71209- 9768 13 Jul, 2017 [place] [address] 01230- 7156 12 Jul, 2017 Routine gynecological examination Z01.419 ; Dysuria R30.0 and Screening breast examination Z12.31 [place] [address] 277842- 2546 Jul, Generalized anxiety disorder F41.1 and Major depressive disorder, recurrent episode, moderate F33.1 [facility] [id number] [place] [address] 89753- 6165 Jul, [facility] [id number] [place] [address] 53093- 7525 Jun, Generalized anxiety disorder F41.1 and Major depressive disorder, recurrent episode, moderate F33.1 [facility] [id number] [place] [address] 54879- 9702 Jun, Other chronic pain G89.29 [facility] [id number] [place] [address] [id number] May, Dental caries K02.9 [facility] [id number] [place] [address] 36745- 1212 May, Generalized anxiety disorder F41.1 and Major depressive disorder, recurrent episode, moderate F33.1 [facility] [id number] [place] [address] [id number] May, Dental examination Z01.20 [facility] [id number] [place] [address] 36986- 9617 March, [facility] [id number] [place] [address] 20616- 7422 March, Generalized anxiety disorder F41.1 and Major depressive disorder, recurrent episode, moderate F33.1 [facility] [id number] [place] [address] 27013- 9022 March, Encounter for annual physical exam Z00.00 and Other chronic pain G89.29 [facility] [id number] [place] [address] 71350- 0830 Jan, Generalized anxiety disorder F41.1 and Major depressive disorder, recurrent episode, moderate F33.1 [facility] [id number] [place] [address] 58265- 1017 Jan, [facility] [address] [address]- 9918 29 Dec, 2016 Generalized anxiety disorder F41.1 and Major depressive disorder, recurrent episode, moderate F33.1 [place] [address] [address]- 2169 17 Dec, 2016 Generalized anxiety disorder F41.1 and Major depressive disorder, recurrent episode, moderate F33.1 [place] [id number] [place] [address] 43749- 4965 Dec, [place] [id number] [place] [address] 94410- 5236 Dec, Generalized anxiety disorder F41.1 and Major depressive disorder, recurrent episode, moderate F33.1 [place] [address] [address]- 0121 Dec, Diarrhea, unspecified type R19.7 ; Irritable bowel syndrome with diarrhea K58.0 and Alkaline phosphatase elevation R74.8 [place] [address] [address]- 0154 Dec, Diarrhea, unspecified type R19.7 and Alkaline phosphatase elevation R74.8 [place] [address] [address]- 1610 Dec, Generalized anxiety disorder F41.1 and Major depressive disorder, recurrent episode, moderate F33.1 [place] [address] [address]- 4109 Dec, Low back pain M54.5 [place] [id number] [place] [address] 29185- 7621 Dec, Generalized anxiety disorder F41.1 and Major depressive disorder, recurrent episode, moderate F33.1 [place] [address] [address]- 0231 Dec, Irritable bowel syndrome with diarrhea K58.0 and Diarrhea, unspecified type R19.7 [place] [id number] [place] [address] 98831- 6177 Dec, [place] [address] 53979- 7401 Dec, Generalized anxiety disorder F41.1 and Major depressive disorder, recurrent episode, moderate F33.[address] [facility] [id number] [place] [address] 75348 -1399 Nov, Cough R05 ; Viral illness B34.9 and Chronic diarrhea K52.9 [place] [id number] [place] [address] 58646- 3052 Nov, Generalized anxiety disorder F41.1 and Major depressive disorder, recurrent episode, moderate F33.1 [place] [id number] [place] [address] 52289- 7972 Nov, Encounter for Depo-Provera contraception Z30.42 [place] [address] 20911- 5882 Nov, Generalized anxiety disorder F41.1 and Major depressive disorder, recurrent episode, moderate F33.1 [place] [id number] [place] [address] 85631- 6381 Nov, Low back pain M54.5 [place] [id number] [place] [address] 66848- 2450 Oct, Generalized anxiety disorder F41.1 and Major depressive disorder, recurrent episode, moderate F33.1 [place] [id number] [place] [address] 62443- 5545 Sep, Low back pain M54.5 and Other chronic pain G89.29 [place] [address] 46322- 9118 Sep, Generalized anxiety disorder F41.1 and Major depressive disorder, recurrent episode, moderate F33.1 [place] [id number] [place] [address] 29729- 0458 Sep, Encounter for Depo-Provera contraception Z30.42 [facility] [address], [place] [address]- 4410 Jul, [facility] [id number] [place] [address] 58605- 5896 Jul, [facility] [id number] [place] [address] 78795- 0103 Jul, Encounter for immunization Z23 [facility] [id number] [place] [address] 84838- 2100 Jun, Encounter for Depo-Provera contraception Z30.42 [facility] [id number] [place] [address] 63904- 7487 Jun, Generalized anxiety disorder F41.1 and Major depressive disorder, recurrent episode, moderate F33.1 [facility] [id number] [place] [address] 00357- 7644 May, Generalized anxiety disorder F41.1 and Major depressive disorder, recurrent episode, moderate F33.1 [facility] [id number] [place] [address] 02594- 7489 Apr, Generalized anxiety disorder F41.1 and Major depressive disorder, recurrent episode, moderate F33.1 [facility] [id number] [place] [address] 91392- 5720 March, Encounter for Depo-Provera contraception Z30.42 [facility] [id number] [place] [address] 38584- 5259 March, Generalized anxiety disorder F41.1 and Major depressive disorder, recurrent episode, moderate F33.1 [facility] [id number] [place] [address] 94361- 8160 Jan, Generalized anxiety disorder F41.1 and Major depressive disorder, recurrent episode, moderate F33.1 [facility] [address], [place] [address]- 9254 Jan, [facility] [id number] [place] [address] 53155 -5904 Jan, Oral infection K12.2 [place] [address] 23316- 4346 Jan, Tobacco abuse Z72.0 and Hypokalemia E87.6 [place] [id number] [place] [address] 33672- 3509 Jan, [place] [address] 19605- 3782 Dec, Screening, lipid Z13.220 and Hypokalemia E87.6 [place] [address] 40515- 0928 Dec, Screening, lipid Z13.220 ; Screening for diabetes mellitus Z13.1 and Tobacco abuse Z72.0 [place] [address] 73282- 0201 Dec, Generalized anxiety disorder F41.1 and Major depressive disorder, recurrent episode, moderate F33.1 [place] [address] 36830- 6114 Dec, Routine follow-up Z39.2 ; Encounter for Depo- Provera contraception Z30.42 ; Atyp squam cell of undet signfc cyto smr crvx ( ASC-US) R87.610 and Cervical high risk human papillomavirus (HPV) DNA test positive R87.810 [place] [id number] [place] [address] 38226- 0124 Dec, Generalized anxiety disorder F41.1 and Major depressive disorder, recurrent episode, moderate F33.1 [place] [id number] [place] [address] 88597- 6459 Nov, Unspecified high-risk O09.90 and 39 weeks gestation of Z3A.[address] 17484- 8003 Nov, Unspecified high-risk O09.90 and 38 weeks gestation of Z3A.38 [place] [id number] [place] [address] 63896- 3922 Nov, Unspecified high-risk O09.90 ; Dental infection K04.7 and 37 weeks gestation of Z3A.37 [place] [id number] [place] [address] 20974- 9924 Oct, screening for streptococcus B Z36 ; 36 weeks gestation of Z3A.36 and Breech presentation, not applicable or unspecified fetus O32.1XX0 [place] [id number] [place] [address] 44121- 5324 Oct, Unspecified high-risk O09.90 and 34 weeks gestation of Z3A.34 [place] [id number] [place] [address] 74257- 8389 Oct, 32 weeks gestation of Z3A.32 and Unspecified high- risk O09.90 [place] [id number] [place] [address] 79262- 7490 Sep, Unspecified high-risk O09.90 ; Encounter for immunization Z23 and 30 weeks gestation of Z3A.30 [place] [id number] [place] [address] 61832- 4583 Sep, Generalized anxiety disorder F41.1 and Major depressive disorder, recurrent episode, moderate F33.1 [place] [id number] [place] [address] 59921- 8011 Aug, Unspecified high-risk O09.90 [place] [id number] [place] [address] 98898- 3850 Aug, Unspecified high-risk O09.90 [place] [id number] [place] [address] 27526- 4241 Aug, Dental infection K04.7 [place] [id number] [place] [address] 55488- 1279 Aug, Dysuria R30.0 [place] [id number] [place] [address] 20475- 6626 Aug, Dysuria R30.0 [place] [id number] [place] [address] 13321- 2986 Jul, Influenza vaccine administered V04.81 [place] [id number] [place] [address] 45957- 0092 Jul, Unspecified high-risk V23.9 [place] [id number] [place] [address] 73478- 1845 Jul, Unspecified high-risk V23.9 and ASCUS with positive high risk HPV 796.9 [place] [id number] [place] [address] 42621- 1530 Jul, [place] [id number] [place] [address] 74241- 4875 Jun, [place] [id number] [place] [address] 51911- 8057 Jun, Unspecified high-risk V23.9 ; Pap test, as part of routine gynecological examination V76.2 and Screen for STD (sexually transmitted disease) V74.5 [place] [id number] [place] [address] 53735- 7362 Jun, test positive V72.42 ; Unspecified high-risk V23.9 ; UTI in 646.60 and Vomiting 643.90 [place] [address] [place] [address] 34641- 0020 Jun, [place] [id number] [place] [address] 39050- 5089 Jun, [place] [id number] [place] [address] 54307- 3446 Jun, [place] [id number] [place] [address] 01088- 2546 May, [facility] [address] [id number] [place] [address]- 8696 Apr, [facility] [address] [facility] [id number] [place] [address]- 4989 Apr, Absence of menstruation 626.0 [facility] [address] [id number] [place] [address]- 9481 Jan, [facility] [place] [facility] [address] [id number], [place] [address]- 6431 Jan, [facility] [address] [facility] [id number] [place] [address]- 2693 Dec, [facility] [place] [facility] [address] [facility] [id number] [place] [address]- 3225 Dec, [facility] [id number] [place] [address]- 5896 Dec, [facility] [address] [facility] [id number] [place] [address]- 5726 Dec, [facility] [place] [facility] [id number] [place] [address]- 1700 Nov, [facility] [address] [facility] [id number], [place] [address]- 0208 Nov, [facility] [place] [facility] [address] [facility] [id number], [place] [address]- 2032 Nov, [facility] [place] [facility] [address] [facility] [id number], [place] [address]- 3489 Nov, [facility] [place] [facility] [address] [facility] [id number] [place] [address]- 6295 Nov, [facility] [place] [facility] [address] [facility] [id number] 8921 Nov, [facility] [place] [facility] [address] [facility] [id number], [place] [address]- 3600 Nov, [facility] [place] [facility] [address] [id number] [place] [address]- 7849 Nov, [facility] [place] [facility] [address] [id number] [place] 7668 Oct, [facility] [place] [facility] [address] [id number] [place] [address]- 3682 Oct, [facility] [place] [facility] [address] [id number] [place] [address]- 8713 Oct, [facility] [place] [facility] [address] [id number] [place] [address]- 3840 Oct, [facility] [place] [facility] [address] [id number] [place] [address]- 5251 Sep, [facility] [place] [facility] [address] [id number] [place] [address]- 9738 Sep, [facility] [place] [facility] [address] [id number] [place] [address]- 4874 Jul, [facility] [place] [facility] [address] [id number] [place] [address]- 8000 Jul, [facility] [place] [facility] [address] [id number] [place] [address]- 6072 Apr, [facility] [place] [facility] [address] [id number] [place] [address]- 4068 Apr, [facility] [place] [facility] [address] [id number], [place] [address]- 0800 March, [facility] [place] [facility] [address] [id number] [place] [address]- 3137 March, [facility] [place] [facility] [address] [id number] [place] [address]- 6752 March, [facility] [place] [facility] [address] [id number] [place] [address]- 1478 March, [facility] [place] [facility] [address] [id number], [place] [address]- 8051 Nov, [facility] [address] [id number] [place] [address]- 7831 Nov, [facility] [place] [facility] [address] [id number] [place] [address]- 0395 Nov, [facility] [place] [facility] [address] [id number] [place] [address]- 4326 Nov, [facility] [place] [facility] [address] [id number] [place] [address]- 1049 Nov, [facility] [place] [facility] [address] [id number] [place] [address]- 8167 Nov, [facility] [place] [facility] [address] [id number] [place] [address]- 3407 Nov, [facility] [address] [id number] [place] [address]- 4130 Nov, [facility] [place] [facility] [address] [id number] [place] [address]- 4426 Nov, [facility] [address] [id number] [place] [address]- 3954 Nov, [facility] [place] [facility] [address] [id number] [place] [address]- 0465 Nov, [facility] [place] [facility] [address] [id number] [place] [address]- 5570 Oct, [facility] [place] [facility] [address] [id number] [place] [address]- 4820 16 Oct, 2013 [facility] [place] [facility] [address] [id number] [place] [address]- 9050 16 Oct, 2013 [facility] [place] [facility] [address] [id number] [place] [address]- 9832 13 Oct, 2013 [facility] [place] [facility] [address] [id number] [place] [address]- 7349 13 Oct, 2013 [facility] [place] [facility] [address] [id number] [place] [address]- 7351 Oct, [facility] [address] [id number] [place] [address]- 7939 Oct, [facility] [place] [facility] [address] [id number] [place] 8353 Oct, [facility] [place] [facility] [address] [id number] [place] [address]- 9266 Oct, [facility] [place] [facility] [address] [id number] [place] [address]- 3059 Oct, [facility] [place] [facility] [address] [id number] [place] [address]- 6298 Oct, [facility] [place] [facility] [address] [id number] [place] [address]- 9499 Oct, [facility] [place] [facility] [address] [id number] [place] [address]- 2255 Sep, [facility] [place] [facility] [address] [id number] [place] [address]- 6521 Sep, [facility] [place] [facility] [address] [id number] [place] [address]- 5921 Sep, [facility] [place] [facility] [address] [id number] [place] [address]- 0469 Sep, [facility] [place] [facility] [address] [id number] [place] [address]- 2383 Aug, [facility] [place] [facility] [address] [id number] [place] [address]- 6150 Aug, [facility] [place] [facility] [address] [id number] [place] [address]- 7085 Aug, [facility] [place] [facility] [address] [id number] [place] [address]- 2546 Aug, [facility] [place] [facility] [address] [id number] [place] [address]- 3179 Jun, [facility] [address] [id number] [place] [address]- 4885 Jun, [facility] [place] [facility] [address] [id number] [place] [address]- 3717 Apr, [facility] [place] [facility] [address] [id number] [place] [address]- 9756 March, [facility] [place] [facility] [address] [id number] [place] [address]- 8368 Jan, [facility] [address] [id number] [place] [address]- 0660 16 Jan, 2013 [facility] [place] [facility] [address] [id number] [place] [address]- 3756 15 Jan, 2013 [facility] [address] [id number] [place] [address]- 7028 Jan, [facility] [place] [facility] [address] [id number] [place] [address]- 0747 Dec, [facility] [place] [facility] [address] [id number] [place] [address]- 6505 Dec, [facility] [place] [facility] [address] [id number] [place] [address]- 5304 Dec, [facility] [place] [facility] [address] [id number] [place] [address]- 0182 Dec, [facility] [place] [facility] [address] [id number] [place] [address]- 1347 Oct, [facility] [place] [facility] [address] [id number] [place] [address]- 2641 Oct, [facility] [place] [facility] [address] [id number] [place] [address] Oct, [facility] [place] [facility] [address] [id number] [place] [address] Oct, [facility] [place] [facility] [address] [id number] [place] [address] Oct, [facility] [place] [facility] [address] [id number] [place] [address] Oct, [facility] [place] [facility] [address] [id number] [place] [address] Sep, [facility] [place] [facility] [address] [id number] [place] [address] Sep, [facility] [place] [facility] [address] [id number] [place] [address] Aug, [facility] [place] [facility] [address] [id number] [place] [address] Aug, [facility] [place] [facility] [address] [id number] [place] [address] Aug, [facility] [place] [facility] [address] [id number] [place] [address] Jul, [facility] [place] [facility] [address] [id number] [place] [address] Jul, [facility] [place] [facility] [address] [id number] [place] [address] Jul, [facility] [place] [facility] [address] [facility] [id number] [place] [address] Jul, [facility] [place] [facility] [address] [id number] [place] [address] Jun, [facility] [place] [facility] [address] [id number] [place] [address] Jun, [facility] [place] [facility] [address] [id number] [place] [address] Jun, [facility] [place] [facility] [address] [facility] [id number] [place] [address] Jun, [facility] [place] [facility] [address] [id number] [place] [address] Jun, [facility] [place] [facility] [address] [id number] [place] [address] May, [facility] [place] [facility] [address] [id number] [place] [address] May, [facility] [place] [facility] [address] [id number] [place] [address] Apr, [facility] [place] [facility] [address] [id number] [place] [address] Apr, [facility] [address] [id number] [place] [address] Apr, [facility] [address] [id number] [place] [address] March, [facility] [address] [id number] [place] [address] March, [facility] [address] [id number] [place] [address] March, [facility] [address] [id number] [place] [address] Jan, [facility] [address] [id number] [place] [address] Dec, [facility] [place] [facility] [address] [id number] [place] [address] Dec, [facility] [place] [facility] [address] [id number] [place] [address] Dec, [facility] [place] [facility] [address] [id number] [place] [address] Dec, [facility] [place] [facility] [address] [id number] [place] [address] Dec, 2011 [facility] [place] [facility] [address] [id number] [place] [address] 16 Dec, 2011 [facility] [place] [facility] [address] [id number] [place] [address] Dec, [facility] [address] [id number] [place] [address] 29 Dec, 2011 [facility] [place] [facility] [address] [id number] [place] [address] 28 Dec, 2011 [facility] [address] [id number] [place] [address] 21 Dec, 2011 [facility] [place] [facility] [address] [id number] [place] [address] 13 Dec, 2011 [facility] [address] [id number] [place] [address] Dec, [facility] [address] [id number] [place] [address] Dec, [facility] [address] [id number] [place] [address] Nov, [facility] [address] [id number] [place] [address] Nov, [facility] [address] [id number] [place] [address] Nov, [facility] [address] [facility] [id number] [place] [address] Nov, [facility] [address] [id number] [place] [address] Nov, [facility] [place] [facility] [address] [id number] [place] [address] Nov, [facility] [place] [facility] [address] [id number] [place] [address] Nov, [facility] [place] [facility] [address] [id number] [place] [address] Nov, [facility] [place] [facility] [address] [id number] [place] [address] Oct, [facility] [place] [facility] [address] [id number] [place] [address]27 Oct, [facility] [place] [facility] [address] [id number] [place] [address] 15 Oct, 2011 [facility] [place] [facility] [address] [id number] [place] [address] 15 Oct, 2011 [facility] [place] [facility] [address] [id number] [place] [address] Oct, [facility] [place] [facility] [address] [id number] [place] [address] 13 Oct, 2011 [facility] [place] [facility] [address] [id number] [place] [address] Oct, [facility] [place] [facility] [address] [id number] [place] [address] 23 Sep, 2011 [facility] [place] [facility] [address] [id number] [place] [address]605 18 Sep, 2011 [facility] [place] [facility] [address] [id number] [place] [address] 8018 18 Sep, 2011 [facility] [place] [facility] [address] [id number] [place] [address] 1641 16 Sep, 2011 [facility] [place] [facility] [address] [id number] [place] [address]59 16 Sep, 2011 [facility] [place] [facility] [address] [id number] [place] [address] 08 Sep, 2011 [facility] [place] [facility] [address] [id number] [place] [address] Sep, [facility] [place] [facility] [address] [id number] [place] [address] 1602 24 Aug, 2011 [facility] [place] [facility] [address] [id number] [place] [address]1 24 Aug, 2011 [facility] [place] [facility] [address] [id number] [place] [address] Jun, [facility] [address] [id number] [place] [address]65 23 Oct, 2010 [facility] [place] [facility] [address] [id number] [place] [address] 19 Oct, 2010 [facility] [place] [facility] [address] [id number] [place] [address] 08 Oct, 2010 [facility] [place] [facility] [address] [id number] [place] [address] 3541 16 Dec, 2009 [facility] [place] [facility] [address] [id number] [place] [address] 1134 Dec, [facility] [place] [facility] [address] [id number] [place] [address] 18 Dec, 2009 [facility] [place] [facility] [address] [id number] [place] [address] 2868 Dec, [facility] [place] [facility] [address] [id number] [place] [address]60 Nov, [facility] [place] [facility] [address] [id number] [place] [address]- [address]37 29 Oct, 2009 [facility] [place] [facility] [address] [id number] [place] [address]647 17 Oct, 2009 [facility] [place] [facility] [address] [id number], [place] [address] 15 Oct, 2009 [facility] [place] [facility] [address] [id number] [address] 15 Oct, 2009 [facility] [place] [facility] [address] [id number] [place] [address] 2540 24 Sep, 2009 [facility] [place] [facility] [address] [id number], [place] [address] 03 Sep, 2009 [facility] [place] [facility] [address] [id number] [place] [address] 1836 29 Aug, 2009 [facility] [place] [facility] [address] [facility] [id number] [place] [id number] Aug, [facility] [address] [facility] [id number], [place] [address] Aug, [facility] [address] [facility] [id number], [place] [address] Aug, [facility] [address] [facility] [id number], [place] [address] Aug, [facility] [address] [facility] [id number], [place] [address] Jun, IMMUNIZATIONS No Known Immunizations SOCIAL HISTORY Never Assessed REASON FOR VISIT 1 WK TE PLAN OF CARE Activity Details Follow Up prn Reason:TE VITAL SIGNS Height 68 in 2017-05-18 Blood pressure systolic 129 mmHg 2017-05-18 Blood pressure diastolic 83 mmHg 2017-05-18 MEDICATIONS Medication Instructions Dosage Frequency Start Date End Date Duration Status Zithromax 250 MG Orally Once a day 2 tablets on the first day, then 1 tablet daily for 4 days 24h 5 day(s) Active Viibryd 20 MG Orally Once a day 1 tablets with food 24h Active RESULTS No Results PROCEDURES Procedure Date Ordered Result Body Site EXTRAC ERUPTED TOOTH/EXPOSED ROOT May 18, 2017 EXTRAC ERUPTED TOOTH/EXPOSED ROOT May 18, 2017 INSTRUCTIONS MEDICATIONS ADMINISTERED No Known Medications MEDICAL (GENERAL) HISTORY Type Description Date Medical History Tobacco abuse Surgical History tonsillectomy age 15 Surgical History cholecystectomy 2010 Surgical History colonoscopy 3 times Surgical History 4 natural births Hospitalization History Hospitalization for surgery only
--- OUTSIDE RECORDS SUMMARY | 2018-08-17 18:26 | XMS REPORT ---
Author Author LARRY HILDA Organization [facility] Address [address] [place] [address] Care Team Providers Care Chip Crusher Operator Name Role Phone ELISEJUAN MANUEL NASHA Unavailable PROBLEMS Type Condition ICD9-CM Code EXR67-DX Code Onset Dates Condition Status SNOMED Code Problem Major depressive disorder, recurrent episode, moderate F33.1 Active 521081334 Problem History of methamphetamine abuse Z87.898 Active 427339113 Problem Generalized anxiety disorder F41.1 Active 20622973 Problem Cervical high risk HPV (human papillomavirus) test positive R87.810 Active 720506329 Problem Atyp squam cell of undet signfc cyto smr crvx (ASC-US) R87.610 Active 505387847 Problem BMI 39.0-39.9,adult Z68.39 Active 634726718 Problem Recurrent major depressive disorder, in partial remission F33.41 Active 45759276 Problem Irritable bowel syndrome with diarrhea K58.0 Active 188741170 Problem Other chronic pain G89.29 Active 71673875 Problem Anxiety F41.9 Active 31497284 Problem Alkaline phosphatase elevation R74.8 Active [id number] ALLERGIES No Information ENCOUNTERS Encounter Location Date Diagnosis [facility] [id number] [place] [address] 04813- 3441 May, [facility] [id number] [place] [address] 16590- 1861 Apr, [facility] [id number] [place] [address] 45463- 4343 March, Generalized anxiety disorder F41.1 and Major depressive disorder, recurrent episode, moderate F33.1 [facility] [id number] [place] [address] 53040- 9106 Jan, Encounter for Depo-Provera contraception Z30.42 [facility] [id number] [place] [address] 72455- 0821 Jan, Generalized anxiety disorder F41.1 and Major depressive disorder, recurrent episode, moderate F33.1 [facility] [id number] [place] [address] 23510- 7556 Dec, Anxiety F41.9 and Recurrent major depressive disorder, in partial remission F33.41 [place] [address] 00315- 5562 Nov, [facility] [address] 13316- 1263 Nov, Other chronic pain G89.29 ; Encounter for surveillance of injectable contraceptive Z30.42 ; BMI 39.0-39.9,adult Z68.39 and Encounter for Depo-Provera contraception Z30.42 [facility] [address] 44027- 2082 Sep, Anxiety F41.9 and Recurrent major depressive disorder, in partial remission F33.41 [facility] [id number] [place] [address] 98210- 0415 Aug, Generalized anxiety disorder F41.1 and Major depressive disorder, recurrent episode, moderate F33.1 [facility] [id number] [place] [address] 93373- 4470 Aug, [facility] [address] 34045- 4024 Aug, Anxiety F41.9 and Major depressive disorder, recurrent episode, moderate F33.1 [facility] [id number] [place] [address] 24645- 5357 Jul, Encounter for immunization Z23 [facility] [address] 88778- 9665 Jul, [facility] [id number] [place] [address] 94696- 4301 Jul, [facility] [id number] [place] [address] 89149- 2299 14 Jul, 2017 Alkaline phosphatase elevation R74.8 [facility] [id number] [place] [address] 84446- 3380 13 Jul, 2017 Encounter for annual physical exam Z00.00 [facility] [id number] [place] [address] 41717- 6641 13 Jul, 2017 [facility] [id number] [place] [address] 24750- 3525 12 Jul, 2017 Routine gynecological examination Z01.419 ; Dysuria R30.0 and Screening breast examination Z12.31 [facility] [id number] [place] [address] 49688- 7458 12 Jul, 2017 Generalized anxiety disorder F41.1 and Major depressive disorder, recurrent episode, moderate F33.1 [facility] [id number] [place] [address] 65640- 7054 08 Jul, 2017 [facility] [id number] [place] [address] 57990- 7433 10 Jun, 2017 Generalized anxiety disorder F41.1 and Major depressive disorder, recurrent episode, moderate F33.1 [facility] [id number] [place] [address] 02030- 0877 09 Jun, 2017 Other chronic pain G89.29 [facility] [id number] [place] [address] [id number] May, Dental caries K02.9 [facility] [id number] [place] [address] 00733- 5504 May, Generalized anxiety disorder F41.1 and Major depressive disorder, recurrent episode, moderate F33.1 [facility] [id number] [place] [address] [id number] May, Dental examination Z01.20 [facility] [id number] [place] [address] 70513- 5301 March, [facility] [place] [id number] [place] [address] 91583- 1825 March, Generalized anxiety disorder F41.1 and Major depressive disorder, recurrent episode, moderate F33.1 [facility] [id number] [place] [address] 63513- 1795 March, Encounter for annual physical exam Z00.00 and Other chronic pain G89.29 [facility] [id number] [place] [address] 90170- 3210 Jan, Generalized anxiety disorder F41.1 and Major depressive disorder, recurrent episode, moderate F33.1 [facility] [id number] [place] [address] 43735- 3741 Jan, [facility] [id number] [place] [address] 52699- 4171 Dec, Generalized anxiety disorder F41.1 and Major depressive disorder, recurrent episode, moderate F33.1 [facility] [id number] [place] [address] 58567- 9272 Dec, Generalized anxiety disorder F41.1 and Major depressive disorder, recurrent episode, moderate F33.1 [facility] [id number] [place] [address] 34564- 6175 Dec, [facility] [id number] [place] [address] 31298- 8465 Dec, Generalized anxiety disorder F41.1 and Major depressive disorder, recurrent episode, moderate F33.1 [facility] [place] [id number] [place] [address] 17529- 8089 15 Dec, 2016 Diarrhea, unspecified type R19.7 ; Irritable bowel syndrome with diarrhea K58.0 and Alkaline phosphatase elevation R74.8 [facility] [id number] [place] [address] 49039- 0129 Dec, Diarrhea, unspecified type R19.7 and Alkaline phosphatase elevation R74.8 [facility] [id number] [place] [address] 32193- 2873 Dec, Generalized anxiety disorder F41.1 and Major depressive disorder, recurrent episode, moderate F33.1 [facility] [address] 64459- 8088 Dec, Low back pain M54.5 [facility] [address] 23121- 3045 Dec, Generalized anxiety disorder F41.1 and Major depressive disorder, recurrent episode, moderate F33.1 [facility] [address] 09214- 9509 Dec, Irritable bowel syndrome with diarrhea K58.0 and Diarrhea, unspecified type R19.7 [place] [address] 85385- 9850 Dec, [facility] [facility] [address] 54116- 9279 Dec, Generalized anxiety disorder F41.1 and Major depressive disorder, recurrent episode, moderate F33.1 [facility] [address] 11433 -5024 Nov, Cough R05 ; Viral illness B34.9 and Chronic diarrhea K52.9 [facility] [place] [id number] [place] [address] 21439- 5835 Nov, Generalized anxiety disorder F41.1 and Major depressive disorder, recurrent episode, moderate F33.1 [facility] [id number] [place] [address] 19056- 8479 Nov, Encounter for Depo-Provera contraception Z30.42 [place] [address] 47608- 4774 Nov, Generalized anxiety disorder F41.1 and Major depressive disorder, recurrent episode, moderate F33.1 [facility] [address] 89505- 7698 Nov, Low back pain M54.5 [facility] [id number] [place] [address] 09866- 7281 Oct, Generalized anxiety disorder F41.1 and Major depressive disorder, recurrent episode, moderate F33.1 [facility] [id number] [place] [address] 77414- 3373 Sep, Low back pain M54.5 and Other chronic pain G89.29 [facility] [id number] [place] [address] 17158- 0591 Sep, Generalized anxiety disorder F41.1 and Major depressive disorder, recurrent episode, moderate F33.1 [facility] [id number] [place] [address] 61037- 3591 Sep, Encounter for Depo-Provera contraception Z30.42 [place] [id number] [place] [address] 87308- 8467 Jul, [place] [address] 91714- 4459 Jul, [facility] [id number] [place] [address] 48560- 8262 Jul, Encounter for immunization Z23 [facility] [id number] [place] [address] 96874- 6940 Jun, Encounter for Depo-Provera contraception Z30.42 [facility] [id number] [place] [address] 46453- 1148 Jun, Generalized anxiety disorder F41.1 and Major depressive disorder, recurrent episode, moderate F33.1 [place] [address] [place] [address] 82554- 1799 May, Generalized anxiety disorder F41.1 and Major depressive disorder, recurrent episode, moderate F33.1 [facility] [address] [place] [address] 91368- 9275 Apr, Generalized anxiety disorder F41.1 and Major depressive disorder, recurrent episode, moderate F33.1 [place] [id number] [place] [address] 10453- 6508 March, Encounter for Depo-Provera contraception Z30.42 [place] [id number] [place] [address] 31148- 0930 March, Generalized anxiety disorder F41.1 and Major depressive disorder, recurrent episode, moderate F33.1 [place] [id number] [place] [address] 42116- 0144 Jan, Generalized anxiety disorder F41.1 and Major depressive disorder, recurrent episode, moderate F33.1 [place] [id number] [place] [address] 73615- 5247 Jan, [facility] [id number] [place] [address] 64037 -1811 Jan, Oral infection K12.2 [place] [id number] [place] [address] 43531- 2599 Jan, Tobacco abuse Z72.0 and Hypokalemia E87.6 [place] [id number] [place] [address] 56495- 2038 Jan, [place] [id number] [place] [address] 79809- 3924 Dec, Screening, lipid Z13.220 and Hypokalemia E87.6 [place] [id number] [place] [address] 31755- 1604 Dec, Screening, lipid Z13.220 ; Screening for diabetes mellitus Z13.1 and Tobacco abuse Z72.0 [place] [id number] [place] [address] 87839- 6173 Dec, Generalized anxiety disorder F41.1 and Major depressive disorder, recurrent episode, moderate F33.1 [place] [address] [place] [address] 93698- 0886 Dec, Routine follow-up Z39.2 ; Encounter for Depo- Provera contraception Z30.42 ; Atyp squam cell of undet signfc cyto smr crvx ( ASC-US) R87.610 and Cervical high risk human papillomavirus (HPV) DNA test positive R87.810 [place] [address] 56026- 3553 08 Dec, 2015 Generalized anxiety disorder F41.1 and Major depressive disorder, recurrent episode, moderate F33.1 [place] [address] 26987- 4158 Nov, Unspecified high-risk O09.90 and 39 weeks gestation of Z3A.[address] 91881- 1836 Nov, Unspecified high-risk O09.90 and 38 weeks gestation of Z3A.[address] 92393- 6261 Nov, Unspecified high-risk O09.90 ; Dental infection K04.7 and 37 weeks gestation of Z3A.37 [place] [address] 60354- 5259 Oct, screening for streptococcus B Z36 ; 36 weeks gestation of Z3A.36 and Breech presentation, not applicable or unspecified fetus O32.1XX0 [address] 99313- 2633 Oct, Unspecified high-risk O09.90 and 34 weeks gestation of Z3A.34 [place] [address] 09393- 4026 Oct, 32 weeks gestation of Z3A.32 and Unspecified high- risk O09.[address] 00146- 2817 Sep, Unspecified high-risk O09.90 ; Encounter for immunization Z23 and 30 weeks gestation of Z3A.[address] 37062- 1839 Sep, Generalized anxiety disorder F41.1 and Major depressive disorder, recurrent episode, moderate F33.1 [place] [place] [id number] [place] [address] 85095- 5720 Aug, Unspecified high-risk O09.90 [facility] [id number] [place] [address] 38065- 9864 Aug, Unspecified high-risk O09.90 [place] [place] [id number] [place] [address] 15038- 1295 Aug, Dental infection K04.7 [facility] [place] [id number] [place] [address] 00759- 0542 Aug, Dysuria R30.0 [place] [place] [id number] [place] [address] 35055- 1030 Aug, Dysuria R30.0 [facility] [place] [id number] [place] [address] 65063- 5178 Jul, Influenza vaccine administered V04.81 [place] [id number] [place] [address] 97613- 3292 Jul, Unspecified high-risk V23.9 [facility] [place] [id number] [place] [address] 12500- 6951 Jul, Unspecified high-risk V23.9 and ASCUS with positive high risk HPV 796.9 [place] [id number] [place] [address] 32300- 1461 Jul, [place] [id number] [place] [address] 73411- 2926 Jun, [place] [id number] [place] [address] 78410- 4275 Jun, Unspecified high-risk V23.9 ; Pap test, as part of routine gynecological examination V76.2 and Screen for STD (sexually transmitted disease) V74.5 [facility] [address] [address]- 6012 Jun, test positive V72.42 ; Unspecified high-risk V23.9 ; UTI in 646.60 and Vomiting 643.90 [facility] [address] [address]- 1343 Jun, [facility] [id number] [place] [address] 77455- 1027 Jun, [facility] [address] [address]- 2324 Jun, [facility] [id number] [place] [address] 96180- 2424 May, [facility] [address] [address]- 2929 Apr, [facility] [id number] [place] [address] 17167- 4547 Apr, Absence of menstruation 626.0 [facility] [address], [place] [address]- 7011 Jan, [facility] [address] [address]- 9247 Jan, [facility] [address] [address]- 0154 Dec, [facility] [address], [place] [address]- 5199 Dec, [facility] [id number] 6178 Dec, [facility] [address] 1380 Dec, [facility] [id number] [address]- 6596 Nov, [facility] [id number] [place] [address]- 8321 Nov, [facility] [address] [id number] [place] [address]- 2478 Nov, [facility] [address] [id number] [place] [address]- 7609 Nov, [facility] [address] [id number] [place] [address]- 6755 Nov, [facility] [address] [id number] [place] [address]- 9333 Nov, [facility] [address] [id number] [place] [address]- 1805 Nov, [facility] [address] [id number] [place] [address]- 5538 Nov, [facility] [address] [id number] [place] [address]- 2658 Oct, [facility] [address] [id number] [place] [address]- 6777 Oct, [facility] [address] [id number] [place] [address]- 4564 Oct, [facility] [address] [id number] [place] [address]- 0362 Oct, [facility] [place] [facility] [address] [id number] [place] [address]- 9717 Sep, [facility] [place] [facility] [address] [id number] [place] [address]- 5176 Sep, [facility] [place] [facility] [address] [id number] [place] [address]- 8890 Jul, [facility] [place] [facility] [address] [id number] [place] [address]- 6645 Jul, [facility] [place] [facility] [address] [id number] [place] [address]- 0903 Apr, [facility] [place] [facility] [address] [id number] [place] [address]- 7620 Apr, [facility] [place] [facility] [address] [id number] [place] [address]- 2002 March, [facility] [place] [facility] [address] [id number] [place] [address]- 3801 March, [facility] [place] [facility] [address] [id number] [place] [address]- 8131 March, [facility] [place] [facility] [address] [id number] [place] [address]- 4723 March, [facility] [place] [facility] [address] [id number] [place] [address]- 0750 Nov, [facility] [place] [facility] [address] [id number] [place] [address]- 3594 Nov, [facility] [place] [facility] [address] [id number] [place] [address]- 5514 Nov, [facility] [place] [facility] [address] [id number] [place] [address]- 1727 Nov, [facility] [place] [facility] [address] [id number] [place] [address]- 5417 Nov, [facility] [place] [facility] [address] [id number] [place] [address]- 1918 Nov, [facility] [place] [facility] [address] [id number] [place] [address]- 2361 Nov, [facility] [place] [facility] [address] [id number] [place] [address]- 5614 Nov, [facility] [place] [facility] [address] [id number] [place] [address]- 0482 Nov, [facility] [place] [facility] [address] [id number] [place] 9226 Nov, [facility] [place] [facility] [address] [id number], [place] [address]- 1177 16 Nov, 2013 [facility] [address] [id number] [place] [address]- 0007 20 Oct, 2013 [facility] [place] [facility] [address] [id number] [place] 9126 16 Oct, 2013 [facility] [place] [facility] [address] [id number] [place] [address]- 7966 16 Oct, 2013 [facility] [place] [facility] [address] [id number] [place] [address]- 6936 13 Oct, 2013 [facility] [place] [facility] [address] [id number] [place] [address]- 0591 13 Oct, 2013 [facility] [place] [facility] [address] [id number] [place] [address]- 5320 12 Oct, 2013 [facility] [address] [id number] [place] [address]- 3879 11 Oct, 2013 [facility] [place] [facility] [address] [id number] [place] [address]- 5693 11 Oct, 2013 [facility] [place] [facility] [address] [id number] [place] [address]- 6342 10 Oct, 2013 [facility] [place] [facility] [address] [id number] [place] [address]- 5628 10 Oct, 2013 [facility] [place] [facility] [address] [id number] [place] [address]- 9311 09 Oct, 2013 [facility] [place] [facility] [address] [id number] [place] [address]- 0280 09 Oct, 2013 [facility] [place] [facility] [address] [id number] [place] [address]- 6758 Sep, [facility] [place] [facility] [address] [id number] [place] [address]- 7890 Sep, [facility] [place] [facility] [address] [id number] [place] [address]- 8327 08 Sep, 2013 [facility] [place] [facility] [address] [id number] [place] [address] 2540 Sep, [facility] [address] [id number] [place] [address]- 7569 Aug, [facility] [place] [facility] [address] [id number] [place] [address] 2546 Aug, [facility] [address] [id number] [place] [address]- 5023 Aug, [facility] [place] [facility] [address] [id number] [place] [address] 2542 Aug, [facility] [address] [id number] [place] [address]- 1016 Jun, [facility] [address] [id number] [place] [address]- 8553 Jun, [facility] [address] [id number] [place] [address]- 2527 Apr, [facility] [address] [id number] [place] [address]- 0749 March, [facility] [address] [id number] [place] [address] 17 Jan, 2013 [facility] [address] [id number] [place] [address] 16 Jan, 2013 [facility] [place] [facility] [address] [id number] [place] [address] 15 Jan, 2013 [facility] [place] [facility] [address] [id number] [place] [address] Jan, [facility] [place] [facility] [address] [id number] [place] [address] Dec, [facility] [place] [facility] [address] [id number] [place] [address] Dec, [facility] [place] [facility] [address] [id number] [place] [address] Dec, [facility] [place] [facility] [address] [id number] [place] [address] Dec, [facility] [place] [facility] [address] [id number] [place] [address] Oct, [facility] [place] [facility] [address] [id number] [place] [address] Oct, [facility] [place] [facility] [address] [id number] [place] [address] Oct, [facility] [place] [facility] [address] [id number] [place] [address] Oct, [facility] [place] [facility] [address] [id number] [place] [address] Oct, [facility] [place] [facility] [address] [facility] [id number] [place] [address] Oct, [facility] [place] [facility] [address] [id number] [place] [address] Sep, [facility] [place] [facility] [address] [id number] [place] [address] Sep, [facility] [place] [facility] [address] [facility] [id number] [place] [address] Aug, [facility] [place] [facility] [address] [id number], [place] [address] Aug, [facility] [place] [facility] [address] [id number], [place] [address] Aug, [facility] [place] [facility] [address] [id number] [place] [address] Jul, [facility] [place] [facility] [address] [id number], [place] [address] Jul, [facility] [place] [facility] [address] [facility] [id number] [place] [address] Jul, [facility] [place] [facility] [address] [id number] [place] [address] Jul, [facility] [place] [facility] [address] [id number] [place] [address] Jun, [facility] [place] [facility] [address] [id number] [place] [address] Jun, [facility] [place] [facility] [address] [id number] [place] [address] Jun, [facility] [place] [facility] [address] [id number] [place] [address] Jun, [facility] [facility] [address] [id number] [place] [address] Jun, [facility] [place] [facility] [address] [id number] [place] [address] May, [facility] [place] [facility] [address] [id number] [place] [address] May, [facility] [place] [facility] [address] [id number] [place] [address] Apr, [facility] [place] [facility] [address] [id number] [place] [address] Apr, [facility] [place] [facility] [address] [id number] [place] [address] Apr, [facility] [place] [facility] [address] [id number] [place] [address] March, [facility] [place] [facility] [address] [id number] [place] [address] March, [facility] [place] [facility] [address] [id number] [place] [address] March, [facility] [place] [facility] [address] [id number] [place] [address] Jan, [facility] [place] [facility] [address] [id number] [place] [address] Dec, [facility] [place] [facility] [address] [id number] [place] [address] 23 Dec, 2011 [facility] [place] [facility] [address] [id number] [place] [address] Dec, [facility] [place] [address] [id number] [place] [address] Dec, [facility] [place] [facility] [address] [id number] [place] [address] 19 Dec, 2011 [facility] [place] [facility] [address] [id number] [place] [address] 16 Dec, 2011 [facility] [place] [address] [id number] [place] [address] 09 Dec, 2011 [facility] [place] [facility] [address] [id number] [place] [address] 29 Dec, 2011 [facility] [place] [facility] [address] [id number] [place] [address] 28 Dec, 2011 [facility] [place] [address] [id number] [place] [address] Dec, [facility] [place] [address] [id number] [place] [address] 13 Dec, 2011 [facility] [address] [id number] [place] [address] Dec, [facility] [place] [facility] [address] [id number] [place] [address] Dec, [facility] [place] [facility] [address] [id number] [place] [address] Nov, [facility] [place] [address] [id number] [place] [address] 24 Nov, 2011 [facility] [address] [id number] [place] [address] Nov, [facility] [facility] [address] [id number] [place] [address] 17 Nov, 2011 [facility] [address] [id number] [place] [address] 17 Nov, 2011 [facility] [address] [id number] [place] [address] 16 Nov, 2011 [facility] [address] [id number] [place] [address] Nov, [facility] [address] [id number] [place] [address] 06 Nov, 2011 [facility] [address] [id number] [place] [address] Oct, [facility] [address] [id number] [place] [address] Oct, [facility] [address] [id number] [place] [address] 15 Oct, 2011 [facility] [address] [id number] [place] [address] 15 Oct, 2011 [facility] [address] [id number] [place] [address] 13 Oct, 2011 [facility] [address] [facility] [id number] [place] [address] 13 Oct, 2011 [facility] [address] [id number] [place] [address] 07 Oct, 2011 [facility] [address] [id number] [place] [address] 23 Sep, 2011 [facility] [address] [id number] [place] [address] 18 Sep, 2011 [facility] [address] [id number] [place] [address] 18 Sep, 2011 [facility] [address] [id number] [place] [address] 78[address] 16 Sep, 2011 [facility] [address] [id number] [place] [address] Sep, [facility] [address] [id number] [place] [address] Sep, [facility] [address] [id number] [place] [address]- [address]68 Sep, [facility] [address] [id number] [place] [address] Aug, [facility] [address] [id number] [place] [address] Aug, [facility] [address] [id number] [place] [address] Jun, [facility] [address] [id number] [place] [address] Oct, [facility] [address] [id number] [place] [address] Oct, [facility] [address] [id number] [place] [address]478 Oct, [facility] [address] [id number] [place] [address]- [address]684 Dec, [facility] [address] [id number] [place] [address]- [address] Dec, [facility] [address] [id number] [place] [address]- [address] Dec, [facility] [address] [id number] [place] [address] 8880 Dec, [facility] [address] [id number] [place] [address] 8676 Nov, [facility] [address] [id number] [place] [address] 68[address] Oct, [facility] [address] [id number], [place] [address] Oct, [facility] [address] [facility] [id number], [place] [address] Oct, [facility] [address] [facility] [id number], [place] [address] Oct, [facility] [address] [facility] [id number], [place] [address] Sep, [facility] [address] [facility] [id number], [place] [address] Sep, [facility] [address] [facility] [id number], [place] [address] Aug, [facility] [address] [facility] [id number], [place] [address] Aug, [facility] [id number], [place] [address] Aug, [facility] [address] [facility] [id number], [place] [address] Aug, [facility] [address] [id number] [address] [address] Aug, [facility] [address] [facility] [id number], [place] [address] Jun, IMMUNIZATIONS No Known Immunizations SOCIAL HISTORY Never Assessed REASON FOR VISIT Med clarification PLAN OF CARE VITAL SIGNS MEDICATIONS Medication Instructions Dosage Frequency Start Date End Date Duration Status HydrOXYzine HCl 10 mg Orally twice a day as needed for [...]
--- NOTE | 2018-08-17 18:27 | ED General ---
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 Nursing Sepsis Screen: No Definite Risk Source of Information: Patient History of Present Illness Date Seen by Provider: Aug 17, 2018 Time Seen by Provider: 18:10 Initial Comments PT ARRIVES VIA EMS FROM HOME ( BROUGHT SMALL CHILD/TODDLER WITH HER IN AMBULANCE ) PT STATES "MY DIZZINESS AND STOMACH ISSUES" STATES SHE HAS NOT FELT WELL FOR 3 DAYS--STARTED ON Wednesday08/15/18 STATES SHE HAS HAD NAUSEA/VOMITING / DIARRHEA HAS VOMITED X 5 TODAY AND HAS HAD DIARRHEA "EVERY 5 MINUTES ALL DAY FOR THE LAST 3 DAYS AND IT'S ALL WATER" (HOWEVER ON REVIEW OF PMH, PT HAS STATED SHE HAS "CHRONIC DIARRHEA" ) PT HAS CONTINUED TO EAT AND DRINK USUAL--STATES SHE HAS HAD AT LEAST THREE 20 OZ BOTTLES OF FLAVORED WATER, HAS DRANK 2 HERBALIFE DRINKS--ONE FOR BREAKFAST AND ONE FOR LUNCH", AND ATE FRIED CHICKEN AND SALAD TONIGHT FOR SUPPER IS VOIDING A NORMAL AMOUNT AND IS NOT HAVING ANY URINARY SYMPTOMS STATES TO ME HER STOMACH DOES NOT ACTUALLY HURT, SHE IS JUST NAUSEATED NO FEVER/SWEATS/CHILLS NO KNOWN SICK CONTACTS OR SUSPICIOUS FOODS HAS NOT TAKEN ANYTHING FOR SYMPTOMS HAS NOT SOUGHT CARE UNTIL TODAY LMP 07/16/18. NORMAL. NO CONTROL PCP: DR. CARLOS MCCRAY Allergies and Home Medications Allergies Coded Allergies: naproxen (Unverified Allergy, Severe, 09/14/08) Home Medications Hydroxyzine HCl 10 Mg Tablet, 10 MG PO DAILY, (Reported) Tizanidine HCl 4 Mg Tablet, 8 MG PO HS, (Reported) Vilazodone Hydrochloride 20 Mg Tablet, 20 MG PO HS, (Reported) Patient Home Medication List Home Medication List Reviewed: Yes Review of Systems Review of Systems Constitutional: see HPI; No chills, No diaphoresis; dizziness; No fever EENTM: blurred vision Respiratory: no symptoms reported Cardiovascular: no symptoms reported Gastrointestinal: see HPI; No abdominal pain; diarrhea; No loss of appetite; nausea, vomiting Genitourinary: no symptoms reported : No LMP: Jul 16, 2018 Musculoskeletal: no symptoms reported Skin: no symptoms reported Psychiatric/Neurological: No Symptoms Reported Hematologic/Lymphatic: No Symptoms Reported Immunological/Allergic: no symptoms reported Past Bwydavc-Eqduhn-Pzldxw Hx Patient Social History Alcohol Use: Denies Use Recreational Drug Use: Yes (HX OF METH USE, DENIES IV USE) Smoking Status: Current Everyday Smoker (1 PPD, HAS "VAPED" FOR THE LAST 2 EYARS) Type Used: Cigarettes, Electronic/Vapor 2nd Hand Smoke Exposure: No Recent Foreign Travel: No Contact w/Someone Who Travel: No Recent Infectious Disease Expo: No Recent Hopitalizations: No Immunizations Up To Date Tetanus Booster (TDap): Unknown PED Vaccines UTD: Yes Date of Influenza Vaccine: Aug 27, 2016 Seasonal Allergies Seasonal Allergies: No Past Medical History Surgeries: Yes (COLONOSCOPIES) Adenoidectomy, Gallbladder, Tonsillectomy Respiratory: No Cardiac: No Neurological: No Reproductive Disorders: No Genitourinary: No Gastrointestinal: Yes Chronic Diarrhea Musculoskeletal: Yes Chronic Back Pain Endocrine: No HEENT: Yes (POOR DENTITION; S/P T&A) Tonsilitis Loss of Vision: Denies Hearing Impairment: Denies Cancer: No Psychosocial: Yes Anxiety, Bipolar, Depression Integumentary: Yes (scarred arms and legs) Blood Disorders: No Adverse Reaction/Blood Tranf: No Family Medical History Patient reports no known family medical history. Heart Disease, Stroke Physical Exam Vital Signs Vital Signs - First Documented 08/17/18 18:01 Temp 99.5 Pulse 84 Resp 18 B/P (MAP) 145/104 (118) Pulse Ox 99 O2 Delivery Room Air Capillary Refill : Less Than 3 Seconds Height, Weight, BMI Height: 5'7.00" Weight: 230lbs. 0.0oz. 104.431201dx; 34.8 BMI Method:Stated General Appearance: No Apparent Distress, WD/WN, Obese, Other (DOES NOT APPEAR ILL OR TO BE IN ANY DISCOMFORT OR DISTRESS) HEENT: PERRL/EOMI, TMs Normal, Normal ENT Inspection, Pharynx Normal, Other ( EXTREMELY POOR DENTITION WITH MULTIPLE MISSING TEETH AND NEARLY ALL TEETH DECAYED DOWN TO GUMS) Neck: Full Range of Motion, Normal Inspection, Non Tender, Supple Respiratory: Normal Breath Sounds, No Accessory Muscle Use, No Respiratory Distress Cardiovascular: Regular Rate, Rhythm, No Edema, No JVD, No Murmur, Normal Peripheral Pulses Gastrointestinal: Normal Bowel Sounds, No Organomegaly, Non Tender, Soft; No Hernia, No Mass, No Rebound Back: Normal Inspection, No CVA Tenderness, No Vertebral Tenderness Extremity: Normal Capillary Refill, Normal Inspection, Normal Range of Motion, Non Tender, No Calf Tenderness, No Pedal Edema Neurologic/Psychiatric: Alert, Oriented x3, No Motor/Sensory Deficits, Normal Mood/Affect, fund director II-XII Norm as Tested Skin: Normal Color, Warm/Dry Focused Exam Lactate Level 08/17/18 18:09: Lactic Acid Level 1.21 Lactic Acid Level Laboratory Tests Test 08/17/18 18:09 Lactic Acid Level 1.21 MMOL/L (0.50-2.00) Progress/Results/Core Measures Suspected Sepsis Recent Fever Within 48 Hours: No Infection Criteria Present: None New/Unexplained Altered Menta: No Sepsis Screen: No Definite Risk SIRS Temperature:99.5 Pulse: 84 Respiratory Rate: 18 Laboratory Tests 08/17/18 18:09: White Blood Count 9.5 Blood Pressure 145 /104 Mean: 118 08/17/18 18:09: Lactic Acid Level 1.21 Laboratory Tests 08/17/18 18:09: Creatinine 0.99, INR Comment 1.0, Platelet Count 329, Total Bilirubin 0.7 Results/Orders Lab Results Laboratory Tests Test 08/17/18 18:09 18 18:29 Range/Units White Blood Count 9.5 4.3-11.0 10^3/uL Red Blood Count 4.74 4.35-5.85 10^6/uL Hemoglobin 12.7 11.5-16.0 G/DL Hematocrit 38 35-52 % Mean Corpuscular Volume 81 80-99 FL Mean Corpuscular Hemoglobin 27 25-34 PG Mean Corpuscular Hemoglobin Concent 33 32-36 G/DL Red Cell Distribution Width 14.1 10.0-14.5 % Platelet Count 329 130-400 10^3/uL Mean Platelet Volume 9.7 7.4-10.4 FL Neutrophils (%) (Auto) 60 42-75 % Lymphocytes (%) (Auto) 33 12-44 % Monocytes (%) (Auto) 6 0-12 % Eosinophils (%) (Auto) 1 0-10 % Basophils (%) (Auto) 0 0-10 % Neutrophils # (Auto) 5.7 1.8-7.8 X 10^3 Lymphocytes # (Auto) 3.1 1.0-4.0 X 10^3 Monocytes # (Auto) 0.6 0.0-1.0 X 10^3 Eosinophils # (Auto) 0.1 0.0-0.3 10^3/uL Basophils # (Auto) 0.0 0.0-0.1 10^3/uL Prothrombin Time 12.6 12.2-14.7 SEC INR Comment 1.0 0.8-1.4 Activated Partial Thromboplast Time 30 24-35 SEC Sodium Level 140 135-145 MMOL/L Potassium Level 3.6 3.6-5.0 MMOL/L Chloride Level 106 98-107 MMOL/L Carbon Dioxide Level 23 21-32 MMOL/L Anion Gap 11 5-14 MMOL/L Blood Urea Nitrogen 12 7-18 MG/DL Creatinine 0.99 0.60-1.30 MG/DL Estimat Glomerular Filtration Rate > 60 BUN/Creatinine Ratio 12 Glucose Level 106 H 70-105 MG/DL Lactic Acid Level 1.21 0.50-2.00 MMOL/L Calcium Level 9.0 8.5-10.1 MG/DL Corrected Calcium 8.9 8.5-10.1 MG/DL Magnesium Level 1.8 1.8-2.4 MG/DL Total Bilirubin 0.7 0.1-1.0 MG/DL Aspartate Amino Transf (AST/SGOT) 33 5-34 U/L Alanine Aminotransferase (ALT/SGPT) 46 0-55 U/L Alkaline Phosphatase 122 40-136 U/L Total Protein 7.4 6.4-8.2 GM/DL Albumin 4.1 3.2-4.5 GM/DL Amylase Level 78 25-125 U/L Lipase 49 8-78 U/L Serum Test, Qualitative NEGATIVE NEGATIVE Monoscreen NEGATIVE NEGATIVE Urine Color YELLOW Urine Clarity CLEAR Urine pH 6.5 5-9 Urine Specific Lyons 1.015 L 1.016-1.022 Urine Protein NEGATIVE NEGATIVE Urine Glucose (UA) NEGATIVE NEGATIVE Urine Ketones NEGATIVE NEGATIVE Urine Nitrite NEGATIVE NEGATIVE Urine Bilirubin NEGATIVE NEGATIVE Urine Urobilinogen 1 NORMAL MG/DL Urine Leukocyte Esterase NEGATIVE NEGATIVE Urine RBC (Auto) NEGATIVE NEGATIVE Urine RBC NONE /HPF Urine WBC 0-2 /HPF Urine Squamous Epithelial Cells 5-10 /HPF Urine Crystals NONE /LPF Urine Bacteria TRACE /HPF Urine Casts NONE /LPF Urine Mucus NEGATIVE /LPF Urine Culture Indicated NO Urine Opiates Screen NEGATIVE NEGATIVE Urine Oxycodone Screen NEGATIVE NEGATIVE Urine Methadone Screen NEGATIVE NEGATIVE Urine Propoxyphene Screen NEGATIVE NEGATIVE Urine Barbiturates Screen NEGATIVE NEGATIVE Ur Tricyclic Antidepressants Screen NEGATIVE NEGATIVE Urine Phencyclidine Screen NEGATIVE NEGATIVE Urine Amphetamines Screen NEGATIVE NEGATIVE Urine Methamphetamines Screen NEGATIVE NEGATIVE Urine Benzodiazepines Screen NEGATIVE NEGATIVE Urine Cocaine Screen NEGATIVE NEGATIVE Urine Cannabinoids Screen NEGATIVE NEGATIVE Group A Streptococcus Screen NEGATIVE NEGATIVE Micro Results Microbiology 08/17/18 Influenza Types A,B Antigen ([facility]) - Final, Complete My Orders Orders - MANDY ALDRIDGE DO Saline Lock/Iv-Start (08/17/18 18:11) Monitor-Rhythm Ecg Trace Only (08/17/18 18:11) Amylase (08/17/18 18:11) Cbc With Automated Diff (08/17/18 18:11) Comprehensive Metabolic Panel (08/17/18 18:11) Drug Screen Stat (Urine) (08/17/18 18:11) Hcg,Qualitative Serum (08/17/18 18:11) Lactic Acid Analyzer (08/17/18 18:11) Lipase (08/17/18 18:11) Magnesium (08/17/18 18:11) Monotest (08/17/18 18:11) Protime With Inr (08/17/18 18:11) Partial Thromboplastin Time (08/17/18 18:11) Rapid Strep A Screen (08/17/18 18:11) Ua Culture If Indicated (08/17/18 18:11) Blood Culture (08/17/18 18:11) Influenza A And B Antigens (08/17/18 18:11) Chest Pa/Lat (2 View) (08/17/18 18:11) Saline Lock/Iv-Start (08/17/18 18:11) Lactated Ringers (Lr 1000 Ml Iv Solution (08/17/18 18:11) Straight Cath For Spec.-Adult (08/17/18 18:19) Ondansetron Injection (Zofran Injectio (08/17/18 18:30) Orthostatic Vital Signs (Adult (08/17/18 18:22) Medications Given in ED Current Medications Medications Dose Ordered Sig/Jose G Route Start Time Stop Time Status Last Admin Dose Admin Lactated Ringer's 1,000 ml @ 0 mls/hr Q0M ONCE IV 08/17/18 18:11 08/17/18 18:14 DC 08/17/18 18:37 1,000 MLS/HR Ondansetron HCl 4 mg ONCE ONCE IVP 08/17/18 18:30 08/17/18 18:31 DC 08/17/18 18:38 4 MG Vital Signs/I&O 08/17/18 18:01 Temp 99.5 Pulse 84 Resp 18 B/P (MAP) 145/104 (118) Pulse Ox 99 O2 Delivery Room Air Capillary Refill : Less Than 3 Seconds Blood Pressure Mean: 118 Progress Note : Progress Note NO VOMITING OR DIARRHEA DURING ER STAY Diagnostic Imaging Comments CXR--NO ACUTE PROCESS, PER RADIOLOGIST REPORT @ Reviewed: Reviewed by Me Departure Impression Primary Impression: Gastroenteritis Disposition: HOME, SELF-CARE Condition: Stable Departure-Patient Inst. Referrals: FABY GONZALEZ MD (PCP/Family) Primary Care Physician Patient Instructions: Viral Gastroenteritis, Adult (DC) Add. Discharge Instructions: CLEAR LIQUIDS--WATER, BROTH, JELLO, GATORADE BRATS DIET--BANANAS, RICE, APPLESAUCE, TOAST, SALTINES FOLLOW UP WITH YOUR DR IN 2-3 DAYS IF NO BETTER All discharge instructions reviewed with patient and/or family. Voiced understanding. Scripts Lactobacillus Acidophilus (Acidophilus) 1 Each Capsule 2 EACH PO QID, #80 CAP Prov: MANDY ALDRIDGE DO 08/17/18 Ondansetron (Zofran Odt) 4 Mg Tab.rapdis 4 MG PO Q4H for Nausea/Vomiting, #10 TAB Prov: MANDY ALDRIDGE DO 08/17/18 MANDY ALDRIDGE DO Aug 17, 2018 18:27
[2018-08-17 18:29] LABS: PROTHROMBIN TIME PATIENT 12.6 SEC (12.2-14.7)
--- OUTSIDE RECORDS SUMMARY | 2018-08-17 18:29 | XMS REPORT | Continuity of Care Document ---
Author Author [facility] Address Unknown Phone Unavailable Allergies Active Description Code Type Severity Reaction Onset Reported/Identified Relationship to Patient Clinical Status Yes naproxen [id number] Drug Allergy Severe N/A 09/14/2008 Yes naproxen [...] Of Normal First 05/25/2009 RICHARD NELSON APRN V22.0 Supervision Of Normal First 05/25/2009 MAN [...] BUCHANAN APRNH 616.10 Vaginitis 08/13/2009 DEWAYNE HAND EHSAN OSMEL 795.03 Pap Smear (+) Low Grade Squamous Intraepithelial Lesion 08/13/2009 EHSAN BUCHANAN APRN 599.0 Urinary Tract Infection 08/13/2009 DEWAYNE HAND, EHSAN OSMEL 616.10 Vaginitis 08/13/2009 DEWAYNE HAND [facility] 795.03 Pap Smear (+) Low Grade Squamous [...] DDS, DEBORAH J 133.0 Scabies 10/15/2009 MIGUELINA EXPENDITURE REQUISITION CLERK, ARMEN R 133.0 Scabies 10/15/2009 OMAR HAND, RICHARD R 133.0 Scabies 10/15/2009 MAN PHD, DAVID Finney 133.0 Scabies 10/29/2009 599.0 Urinary Tract Infection, Site Not Specified 10/29/2009 YESSY CHINO MD 599.0 Urinary Tract Infection, Site Not Specified 10/29/2009 BUCHANAN EXPENDITURE REQUISITION CLERK, EHSAN OSMEL 599.0 Urinary Tract Infection, Site Not Specified 10/29/2009 BUCHANAN EXPENDITURE REQUISITION CLERK, EHSAN OSMEL 599.0 Urinary Tract Infection, Site Not Specified 10/29/2009 MERYL EXPENDITURE REQUISITION CLERK, IRENA A 599.0 Urinary Tract Infection, Site Not Specified 10/29/2009 MERYL EXPENDITURE REQUISITION CLERK, IRENA A 599.0 Urinary Tract Infection, Site [...] CHINO MD 466.0 Acute Bronchitis 11/20/2009 BUCHANAN EXPENDITURE REQUISITION CLERK, EHSAN OSMEL 466.0 Acute Bronchitis 11/20/2009 BUCHANAN EXPENDITURE REQUISITION CLERK, EHSAN OSMEL 466.0 Acute Bronchitis 11/20/2009 MERYL EXPENDITURE REQUISITION CLERK, IRENA A 466.0 Acute Bronchitis 11/20/2009 MERYL EXPENDITURE REQUISITION CLERK, IRENA A 466.0 Acute Bronchitis 11/20/2009 WHITE [...] And Other Nonspecific Skin Eruption 12/04/2009 BUCHANAN EXPENDITURE REQUISITION CLERKEHSAN 782.1 Rash And Other Nonspecific Skin Eruption 12/04/2009 BUCHANAN EXPENDITURE REQUISITION CLERKEHSAN 782.1 Rash And Other Nonspecific Skin Eruption 12/04/2009 MERYL EXPENDITURE REQUISITION CLERK, IRENA A 782.1 Rash And Other Nonspecific Skin Eruption 12/04/2009 MERYL EXPENDITURE REQUISITION CLERK, IRENA A 782.1 Rash And Other Nonspecific Skin Eruption 12/04/2009 WHITE DDS, DEBORAH J 782.1 Rash And Other Nonspecific Skin Eruption 12/04/2009 WHITE DDS, DEBORAH J 782.1 Rash And Other Nonspecific Skin Eruption 12/04/2009 MCINTYRE EXPENDITURE REQUISITION CLERK, ARMEN R 782.1 Rash And Other Nonspecific Skin Eruption 12/04/2009 OMAR EXPENDITURE REQUISITION CLERK, RICHARD R 782.1 Rash And Other Nonspecific [...] APRN R 132.0 Lice Head 05/09/2010 ILIA NELSON APRNINA R 132.0 Lice Head 05/09/2010 [...] IRENA A 305.1 NICOTINE DEPENDENCE 10/08/2010 MERYL EXPENDITURE REQUISITION CLERK, IRENA A 346.90 MIGRAINE HEADACHE 10/08/2010 MERYL EXPENDITURE REQUISITION CLERK, IRENA A 305.1 NICOTINE DEPENDENCE 10/08/2010 MERYL EXPENDITURE REQUISITION CLERK, IRENA A 346.90 MIGRAINE HEADACHE 10/08/2010 WHITE DDS, DEBORAH J 305.1 NICOTINE DEPENDENCE 10/08/2010 WHITE DDS, DEBORAH J 346.90 MIGRAINE HEADACHE 10/08/2010 WHITE DDS, DEBROAH J 305.1 NICOTINE DEPENDENCE 10/08/2010 WHITE DDS, [...] EHSAN OSMEL 298.9 UNSPECIFIED PSYCHOSIS 10/16/2010 BUCHANAN EXPENDITURE REQUISITION CLERK, EHSAN OSEML 300.00 AN ANXIETY UNSPEC 10/16/2010 BUCHANAN EXPENDITURE REQUISITION CLERK, EHSAN OSMEL 311 MO DEPRESS NOS 10/16/2010 BUCHANANNANCY FRANKBecki EHSAN OSMEL 298.9 UNSPECIFIED PSYCHOSIS 10/16/2010 BUCHANAN EXPENDITURE REQUISITION CLERK, EHSAN OSMEL 300.00 AN ANXIETY UNSPEC 10/16/2010 BUCHANAN EXPENDITURE REQUISITION CLERK, EHSAN OSMEL 311 MO DEPRESS NOS 10/16/2010 MERYL EXPENDITURE REQUISITION CLERK, IRENA A 298.9 UNSPECIFIED PSYCHOSIS 10/16/2010 MERYL EXPENDITURE REQUISITION CLERK, IRENA A 300.00 AN ANXIETY UNSPEC 10/16/2010 MERYL HAND IRENA A 311 MO DEPRESS NOS 10/16/2010 MERYL EXPENDITURE REQUISITION CLERK, IRENA A 298.9 UNSPECIFIED PSYCHOSIS 10/16/2010 MERYL EXPENDITURE REQUISITION CLERK, IRENA A 300.00 AN ANXIETY UNSPEC 10/16/2010 [...] EHSAN BUCHANAN APRN 616.10 Vaginitis 12/05/2010 DEWAYNE AHND EHSAN OSMEL V25.01 Oral Contraceptives 12/05/2010 DEWAYNE [...] Screening Exam Bact/spirochetal Venereal Disease 12/05/2010 OMAR EXPENDITURE REQUISITION CLERK, RICHARD R 616.10 Vaginitis 12/05/2010 OMAR EXPENDITURE REQUISITION CLERK, RICHARD R V25.01 Oral Contraceptives 12/05/2010 OMAR EXPENDITURE REQUISITION CLERK, RICHARD R V72.31 Routine Pelvic Exam 12/05/2010 OMAR EXPENDITURE REQUISITION CLERK, RICHARD R V74.5 Visit For: Screening Exam [...] MD 786.52 Chest Wall Pain 03/05/2011 BUCHANAN EXPENDITURE REQUISITION CLERK, EHSAN BOLIVAR 785.1 Palpitations 03/05/2011 BUCHANAN EXPENDITURE REQUISITION CLERK, EHSAN BOLIVAR 786.52 Chest Wall Pain 03/05/2011 BUCHANAN EXPENDITURE REQUISITION CLERK, EHSAN BOLIVAR 785.1 Palpitations 03/05/2011 BUCHANAN EXPENDITURE REQUISITION CLERK, EHSAN BOLIVAR 786.52 Chest Wall Pain 03/05/2011 MERYL EXPENDITURE REQUISITION CLERK, IRENA A 785.1 Palpitations 03/05/2011 MERYL EXPENDITURE REQUISITION CLERK, IRENA A 786.52 Chest Wall Pain 03/05/2011 MERYL EXPENDITURE REQUISITION CLERK, IRENA A 785.1 Palpitations 03/05/2011 MERYL EXPENDITURE REQUISITION CLERK, IRENA A 786.52 Chest Wall Pain 03/05/2011 [...] MD V22.1 , NORMAL OTHER 08/24/2011 BUCHANAN EXPENDITURE REQUISITION CLERK, EHSAN BOLIVAR V22.1 , NORMAL OTHER 08/24/2011 BUCHANAN EXPENDITURE REQUISITION CLERK, EHSAN BOLIVAR V22.1 , NORMAL OTHER 08/24/2011 MERYL EXPENDITURE REQUISITION CLERK, IRENA A V22.1 , NORMAL OTHER 08/24/2011 MERYL EXPENDITURE REQUISITION CLERK, IRENA A V22.1 , NORMAL OTHER 08/24/2011 WHITE DDS, DEBORAH J V22.1 , NORMAL OTHER 08/24/2011 WHITE DDS, DEBORAH J V22.1 , NORMAL OTHER 08/24/2011 MIGUELINA EXPENDITURE REQUISITION CLERK, ARMEN R V22.1 , NORMAL OTHER 08/24/2011 OMAR EXPENDITURE REQUISITION CLERK, RICHARD R V22.1 , NORMAL OTHER 08/24/2011 MAN PHD, DAVID Finney V22.1 , NORMAL OTHER 09/02/2011 789.00 Abdominal Pain Unspecified Site 09/02/2011 LULÚ IBRAHIM, YESSY 789.00 Abdominal Pain Unspecified Site 09/02/2011 DEWAYNE EXPENDITURE REQUISITION CLERK, EHSAN BOLIVAR 789.00 Abdominal Pain Unspecified Site 09/02/2011 BUCHANAN EXPENDITURE REQUISITION CLERK, EHSAN SANCHEZH 789.00 Abdominal Pain Unspecified Site 09/02/2011 MERYL EXPENDITURE REQUISITION CLERK, IRENA A 789.00 Abdominal Pain Unspecified Site 09/02/2011 MERYL EXPENDITURE REQUISITION CLERK, IRENA A 789.00 Abdominal Pain Unspecified Site [...] APRN 692.9 Dermatitis Contact Unspecified 10/15/2011 BUCHANAN EXPENDITURE REQUISITION CLERKEHSAN Connell 692.9 Dermatitis Contact Unspecified 10/15/2011 MERYL EXPENDITURE REQUISITION CLERK, IRENA A 692.9 Dermatitis Contact Unspecified 10/15/2011 MERYL EXPENDITURE REQUISITION CLERK, IRENA A 692.9 Dermatitis Contact Unspecified 10/15/2011 [...] APRN 599.0 Urinary Tract Infection 10/21/2011 BUCHANAN EXPENDITURE REQUISITION CLERKEHSAN Connell 616.10 Vaginitis Vulvovaginitis Unspecified 10/21/2011 MERYL EXPENDITURE REQUISITION CLERK, IRENA A 599.0 Urinary Tract Infection 10/21/2011 MERYL EXPENDITURE REQUISITION CLERK, IRENA A 616.10 Vaginitis Vulvovaginitis Unspecified 10/21/2011 MERYL EXPENDITURE REQUISITION CLERK, IRENA A 599.0 Urinary Tract Infection 10/21/2011 MERYL EXPENDITURE REQUISITION CLERK, IRENA A 616.10 Vaginitis Vulvovaginitis Unspecified 10/21/2011 [...] MO DEPRESSIVE RECURRENT MODERATE 12/12/2011 OMAR HAND RICAHRD R 296.32 MO DEPRESSIVE RECURRENT MODERATE 12/12/2011 [...] EHSAN BUCHANAN APRN 780.79 FATIGUE 10/05/2012 MERYL EXPENDITURE REQUISITION CLERK, IRENA A 611.72 breast lump 10/05/2012 MERYL [...] ARMEN R 611.72 breast lump 10/05/2012 MCINTYRE EXPENDITURE REQUISITION CLERK, ARMEN R 780.79 FATIGUE 10/05/2012 OMAR EXPENDITURE REQUISITION CLERK, RICHARD R 611.72 breast lump 10/05/2012 OMAR EXPENDITURE REQUISITION CLERK, RICHARD R 780.79 FATIGUE 10/05/2012 MAN PHD, [...] 646.60 COMPL OF - UTI 11/22/2013 MERYL RFANKBecki IRENA A 648.30 COMPL OF - DRUG [...] J V23.9 , HIGH-RISK (UNSPEC) 11/22/2013 MIGUELINA EXPENDITURE REQUISITION CLERK, ARMEN R 646.60 COMPL OF - UTI 11/22/2013 MIGUELINA EXPENDITURE REQUISITION CLERK, ARMEN R 648.30 COMPL OF - DRUG DEPENDENCE 11/22/2013 MIGUELINA EXPENDITURE REQUISITION CLERK, ARMEN R 649.00 COMPL OF - TOBACCO [...] Sorto Ot 525.9 DENTAL DISORDER NOS 02/14/2014 IWLLIAM IBRAHIM, RIMMA Sorto Ot 648.93 OTH CURR [...] 611.72 10/30/2014 Ot V16.3 10/30/2014 LUPE ANTONY EXPENDITURE REQUISITION CLERK Ot 599.0 URIN TRACT INFECTION NOS 10/30/2014 LUPE ANTONY EXPENDITURE REQUISITION CLERK Ot 620.2 OVARIAN CYST NEC/NOS 10/30/2014 LUPE ANTONY EXPENDITURE REQUISITION CLERK Ot 626.4 IRREGULAR MENSTRUATION 10/30/2014 LUPE ANTONY EXPENDITURE REQUISITION CLERK Ot 789.04 ABDOMINAL PAIN, LEFT LOWER QUADRANT 10/31/2014 OMAR EXPENDITURE REQUISITION CLERK, RICHARD R 787.91 DIARRHEA 10/31/2014 OMAR EXPENDITURE REQUISITION CLERK, RICHARD R 789.00 ABDOMINAL PAIN UNSPECIFIED SITE [...] SANDOR Garcia Ot 724.2 07/09/2015 IRENA SHETH EXPENDITURE REQUISITION CLERK Ot V23.9 07/09/2015 IRENA SHETH EXPENDITURE REQUISITION CLERK Ot V28.81 07/15/2015 IRENA SHETH EXPENDITURE REQUISITION CLERK Ot V23.9 07/15/2015 IRENA SHETH EXPENDITURE REQUISITION CLERK Ot V28.81 08/05/2015 JACQUELINE IBRAHIM, DANAE Berg [...] FAMILY HX- BREAST MALIG 02/03/2017 LEONILA IBRAHIM, SANDRO L Ot 724.2 LUMBAGO 02/03/2017 IRENA SHETH [...] SUPRV HIGH-RISK PREG NOS 02/03/2017 IRENA SHETH EXPENDITURE REQUISITION CLERK Ot V28.81 ENCOUNTER FOR ANATOMIC SURVEY 02/03/2017 [...] FAMILY HX- BREAST MALIG 03/16/2017 LEONILA IBRAHIM, ASNDOR Garcia Ot 724.2 LUMBAGO 03/16/2017 IRENA SHETH APRN Ot V23.9 SUPRV HIGH-RISK PREG NOS 03/16/2017 IRENA SHETH EXPENDITURE REQUISITION CLERK Ot V28.81 ENCOUNTER FOR ANATOMIC SURVEY 03/16/2017 [...] K05.10 CHRONIC GINGIVITIS, PLAQUE INDUCED 03/16/2017 DANAE PHILLISP MD Ot R07.89 OTHER CHEST PAIN 03/16/2017 [...] DANAE Berg Ot R42 DIZZINESS AND GIDDINESS 10/31/2017 Ot 611.71 MASTODYNIA 10/31/2017 Ot 611.72 LUMP OR MASS IN BREAST 10/31/2017 Ot V16.3 FAMILY HX- BREAST MALIG 10/31/2017 LEONILA IBRAHIM, SANDOR Garcia Ot 724.2 LUMBAGO 10/31/2017 MERYLIRENA PEREZ APRN Ot V23.9 SUPRV HIGH-RISK PREG NOS 10/31/2017 MERYLIRENA Connell EXPENDITURE REQUISITION CLERK Ot V28.81 ENCOUNTER FOR ANATOMIC SURVEY 10/31/2017 FABY GONZALEZ MD Ot V23.9 SUPRV HIGH-RISK PREG NOS 10/31/2017 FABY GONZALEZ MD Ot V28.81 ENCOUNTER FOR ANATOMIC SURVEY 10/31/2017 ANGLE GARCIA MD Ot F32.9 MAJOR DEPRESSIVE DISORDER, SINGLE EPISOD 10/31/2017 ANGLE GARCIA MD, Ot F41.9 ANXIETY DISORDER, UNSPECIFIED 10/31/2017 ANGLE GARCIA MD Ot I10 ESSENTIAL (PRIMARY) HYPERTENSION 10/31/2017 ANGLE GARCIA MD Ot K62.9 DISEASE OF ANUS AND RECTUM, UNSPECIFIED 10/31/2017 ANGLE GARCIA MD Ot K64.1 SECOND DEGREE HEMORRHOIDS 10/31/2017 LUPE ANTONY APRN Ot B34.9 VIRAL INFECTION, UNSPECIFIED 10/31/2017 LUPE ANTONY APRN Ot F31.9 BIPOLAR DISORDER, UNSPECIFIED 10/31/2017 LUPE ANTONY APRN Ot F41.9 ANXIETY DISORDER, UNSPECIFIED 10/31/2017 LUPE ANTONY APRN Ot R05 COUGH 10/31/2017 LUPE ANTONY APRN Ot Z82.49 FAMILY HX OF ISCHEM HEART DIS AND OTH DI 10/31/2017 LUPE ANTONY APRN Ot Z87.19 PERSONAL HISTORY OF OTHER DISEASES OF TH 10/31/2017 LUPE ANTONY APRN Ot Z87.891 PERSONAL HISTORY OF NICOTINE DEPENDENCE 10/31/2017 LUPE ANTONY APRN Ot Z90.89 ACQUIRED ABSENCE OF OTHER ORGANS 12/17/2017 BHAVANI SOMMERS DO Ot R74.8 ABNORMAL LEVELS OF OTHER SERUM ENZYMES 12/21/2017 Ot 611.71 MASTODYNIA 12/21/2017 Ot 611.72 LUMP OR MASS IN BREAST 12/21/2017 Ot V16.3 FAMILY HX- BREAST MALIG 12/21/2017 LEONILA IBRAHIM, SANDOR Garcia Ot 724.2 LUMBAGO 12/21/2017 IRENA SHETH APRN Ot V23.9 SUPRV HIGH-RISK PREG NOS 12/21/2017 IRENA SHETH EXPENDITURE REQUISITION CLERK Ot V28.81 ENCOUNTER FOR ANATOMIC SURVEY 12/21/2017 CARLOS IBRAHIM, FABY Connell Ot V23.9 SUPRV HIGH-RISK PREG NOS 12/21/2017 FABY GONZALEZ MD Ot V28.81 ENCOUNTER FOR ANATOMIC SURVEY 12/21/2017 ANGLE GARCIA MD Ot F32.9 MAJOR DEPRESSIVE DISORDER, SINGLE EPISOD 12/21/2017 ANGLE GARCIA MD, Ot F41.9 ANXIETY DISORDER, UNSPECIFIED 12/21/2017 ANGLE GARCIA MD Ot I10 ESSENTIAL (PRIMARY) HYPERTENSION 12/21/2017 ANGLE GARCIA MD Ot K62.9 DISEASE OF ANUS AND RECTUM, UNSPECIFIED 12/21/2017 ANGLE GARCIA MD Ot K64.1 SECOND DEGREE HEMORRHOIDS 12/21/2017 BHAVANI SOMMERS DO Ot R74.8 ABNORMAL LEVELS OF OTHER SERUM ENZYMES 12/24/2017 RODOLFO SOMMERS DOISON L Ot R74.8 ABNORMAL LEVELS OF OTHER SERUM ENZYMES 12/24/2017 RODOLFO SOMMERS DOISON L Ot R74.8 ABNORMAL LEVELS OF OTHER SERUM ENZYMES 01/10/2018 BHAVANI SOMMERS DO Ot R74.8 ABNORMAL LEVELS OF OTHER SERUM ENZYMES 01/10/2018 RODOLFO SOMMERS DOISON L Ot R74.8 ABNORMAL LEVELS OF OTHER SERUM ENZYMES 04/12/2018 LUPE ANTONY APRN Ot F31.9 BIPOLAR DISORDER, UNSPECIFIED 04/12/2018 LUPE ANTONY APRN Ot F41.9 ANXIETY DISORDER, UNSPECIFIED 04/12/2018 LUPE ANTONY APRN Ot R00.2 PALPITATIONS 04/12/2018 LUPE ANTONY APRN Ot T50.5X5A ADVERSE EFFECT OF APPETITE DEPRESSANTS, 04/12/2018 LUPE ANTONY APRN Ot Z82.49 FAMILY HX OF ISCHEM HEART DIS AND OTH DI 04/12/2018 LUPE ANTONY APRN Ot Z87.891 PERSONAL HISTORY OF NICOTINE DEPENDENCE 04/12/2018 LUPE ANTONY APRN Ot Z88.8 ALLERGY STATUS TO OTH DRUG/MEDS/BIOL SUB 04/12/2018 LUPE ANTONY APRN Ot Z90.89 ACQUIRED ABSENCE OF OTHER ORGANS 04/14/2018 LUPE ANTONY APRN Ot F31.9 BIPOLAR DISORDER, UNSPECIFIED 04/14/2018 LUPE ANTONY APRN Ot F41.9 ANXIETY DISORDER, UNSPECIFIED 04/14/2018 LUPE ANTONY APRN Ot R00.2 PALPITATIONS 04/14/2018 LUPE ANTONY APRN Ot T50.5X5A ADVERSE EFFECT OF APPETITE DEPRESSANTS, 04/14/2018 LUPE ANTONY APRN Ot Z82.49 FAMILY HX OF ISCHEM HEART DIS AND OTH DI 04/14/2018 LUPE ANTONY APRN Ot Z87.891 PERSONAL HISTORY OF NICOTINE DEPENDENCE 04/14/2018 LUPE ANTONY APRN Ot Z88.8 ALLERGY STATUS TO OTH DRUG/MEDS/BIOL SUB 04/14/2018 LUPE ANTONY APRN Ot Z90.89 ACQUIRED ABSENCE OF OTHER ORGANS 05/18/2018 BHAVANI SOMMERS DO Ot E55.9 VITAMIN D DEFICIENCY, UNSPECIFIED Procedures Code Description Performed By Performed On 96.49 OTHER INSTILLATION 02/02/2012 75.62 REPAIR OB LAC RECT/ANUS 02/03/2012 40527 URINE TEST (IN- HOUSE) 09/01/2012 82528 PSYCH IND W/MED CK 20 10/05/2012 11632 OB - EARLY <14 WEEKS 11/22/2013 62146 TEST, URINE (IN- HOUSE) 11/22/2013 95445 UA W/ CULTURE IF INDICATED 11/22/2013 75782 URINE DRUG SCREEN (IN-HOUSE ) 11/22/2013 59304 CULTURE URINE 11/23/2013 73.59 MANUAL ASSIST DELIV NEC 07/15/2014 26941 TEST, URINE (IN- HOUSE) 10/19/2014 05820 OXIMETRY 10/19/2014 09641 AMERITOX 10/31/2014 83926 PSYCH DIAGNOSTIC EVALUATION 11/09/2014 [id number] DELIVERY OF PRODUCTS OF CONCEPTION, EXTE 11/20/2015 [id number] INTRODUCTION OF OTH HORMONE INTO PERIPH 11/20/2015 Results Test Result Range Comp. Metabolic Panel (14) - 12/09/17 09:35 Glucose, Serum 121 mg/dL 65-99 BUN 27 mg/dL 6-24 Creatinine, Serum 0.88 mg/dL 0.76-1.27 eGFR If NonAfricn Am 99 mL/min/1.73 >59 eGFR If Africn Am 115 mL/min/1.73 >59 BUN/Creatinine Ratio 31 9-20 Sodium, Serum 144 mmol/L 134-144 Potassium, Serum 4.7 mmol/L 3.5-5.2 Chloride, Serum 103 mmol/L 96-106 Carbon Dioxide, Total 26 mmol/L 18-29 Calcium, Serum 9.9 mg/dL 8.7-10.2 Protein, Total, Serum 6.8 g/dL 6.0-8.5 Albumin, Serum 4.4 g/dL 3.5-5.5 Globulin, Total 2.4 g/dL 1.5-4.5 A/G Ratio 1.8 1.2-2.2 Bilirubin, Total 0.3 mg/dL 0.0-1.2 Alkaline Phosphatase, S 102 IU/L 39-117 AST (SGOT) 14 IU/L 0-40 ALT (SGPT) 16 IU/L 0-44 Hemoglobin A1c - 12/09/17 09:35 Hemoglobin A1c 5.8 % 4.8-5.6 Valproic Acid (Depakote)(R),S - 12/09/17 09:35 Valproic Acid (Depakote),S 45 ug/mL 50-100 Comp. Metabolic Panel (14) - 01/05/17 14:33 Glucose, Serum 113 mg/dL 65-99 BUN 7 mg/dL 6-20 Creatinine, Serum 0.84 mg/dL 0.57-1.00 eGFR If NonAfricn Am 92 mL/min/1.73 >59 eGFR If Africn Am 106 mL/min/1.73 >59 BUN/Creatinine Ratio 8 8-20 Sodium, Serum 142 mmol/L 134-144 Potassium, Serum 3.5 mmol/L 3.5-5.2 Chloride, Serum 105 mmol/L 96-106 Carbon Dioxide, Total 24 mmol/L 18-29 Calcium, Serum 8.4 mg/dL 8.7-10.2 Protein, Total, Serum 6.4 g/dL 6.0-8.5 Albumin, Serum 3.8 g/dL 3.5-5.5 Globulin, Total 2.6 g/dL 1.5-4.5 A/G Ratio 1.5 1.1-2.5 Bilirubin, Total 0.4 mg/dL 0.0-1.2 Alkaline Phosphatase, S 115 IU/L 39-117 AST (SGOT) 12 IU/L 0-40 ALT (SGPT) 7 IU/L 0-32 GGT - 01/05/17 14:33 GGT 17 IU/L 0-60 Sedimentation Rate-Westergren - 01/05/17 14:33 Sedimentation Rate-Westergren 24 mm/hr 0-32 Stool Culture - 01/13/17 12:19 Stool Culture Note Ova + Parasite Exam - 01/13/17 12:19 Ova + Parasite Exam Note White Blood Cells (WBC), Stool - 01/13/17 12:19 White Blood Cells (WBC), Stool Note Urine beta human chorionic gonadotropin (hCG) measurement [...] - 03/16/17 17:28 Magnesium 2.3 mg/dL 1.8-2.4 Pap Lb, HPV-hr - 07/13/17 15:20 HPV, high-risk Negative Negative DIAGNOSIS: Comment Specimen adequacy: Comment Clinician provided ICD10: Comment Performed by: Comment . . Note: Comment Genital Culture, Routine - 07/13/17 15:20 Genital Culture, Routine Note CULTURE, GENITAL - 07/13/17 15:20 Genital Culture, Routine Final report NR Result 1 [facility] PDF Report - 07/13/17 15:20 PDF Report1 [facility] GGT - 07/14/17 08:43 GGT 13 IU/L 0-60 Written Authorization - 07/14/17 08:43 Written Authorization Comment Written Authorization - 07/14/17 08:43 Written Authorization [facility] CMP - 07/14/17 08:43 Glucose, Serum 103 mg/dL 65-99 BUN 10 mg/dL 6-20 Creatinine, Serum 0.84 mg/dL 0.57-1.00 eGFR If NonAfricn Am 91 mL/min/1.73 >59 eGFR If Africn Am 105 mL/min/1.73 >59 BUN/Creatinine Ratio 12 9-23 Sodium, Serum 139 mmol/L 134-144 Potassium, Serum 4.2 mmol/L 3.5-5.2 Chloride, Serum 99 mmol/L 96-106 Carbon Dioxide, Total 25 mmol/L 18-29 Calcium, Serum 8.8 mg/dL 8.7-10.2 Protein, Total, Serum 6.9 g/dL 6.0-8.5 Albumin, Serum 4.2 g/dL 3.5-5.5 Globulin, Total 2.7 g/dL 1.5-4.5 A/G Ratio 1.6 1.2-2.2 Bilirubin, Total 0.6 mg/dL 0.0-1.2 Alkaline Phosphatase, S 156 IU/L 39-117 AST (SGOT) 22 IU/L 0-40 ALT (SGPT) 17 IU/L 0-32 Comp. Metabolic Panel (14) - 07/14/17 08:43 Glucose, Serum 103 mg/dL 65-99 BUN 10 mg/dL 6-20 Creatinine, Serum 0.84 mg/dL 0.57-1.00 eGFR If NonAfricn Am 91 mL/min/1.73 >59 eGFR If Africn Am 105 mL/min/1.73 >59 BUN/Creatinine Ratio 12 9-23 Sodium, Serum 139 mmol/L 134-144 Potassium, Serum 4.2 mmol/L 3.5-5.2 Chloride, Serum 99 mmol/L 96-106 Carbon Dioxide, Total 25 mmol/L 18-29 Calcium, Serum 8.8 mg/dL 8.7-10.2 Protein, Total, Serum 6.9 g/dL 6.0-8.5 Albumin, Serum 4.2 g/dL 3.5-5.5 Globulin, Total 2.7 g/dL 1.5-4.5 A/G Ratio 1.6 1.2-2.2 Bilirubin, Total 0.6 mg/dL 0.0-1.2 Alkaline Phosphatase, S 156 IU/L 39-117 AST (SGOT) 22 IU/L 0-40 ALT (SGPT) 17 IU/L 0-32 Lipid Panel - 07/14/17 08:43 Cholesterol, Total 149 mg/dL 100-199 Triglycerides 170 mg/dL 0-149 HDL Cholesterol 25 mg/dL >39 VLDL Cholesterol Attila 34 mg/dL 5-40 LDL Cholesterol Calc 90 mg/dL 0-99 Complete blood count (CBC) with automated white blood cell (WBC) differential - 10/31/17 19:17 Blood leukocytes automated count (number/volume) 7.5 10*3/uL 4.3-11.0 Blood erythrocytes automated count (number/volume) 4.88 10*6/uL 4.35-5.85 Venous blood hemoglobin measurement (mass/volume) 12.8 g/dL 11.5-16.0 Blood hematocrit (volume fraction) 39 % 35-52 Automated erythrocyte mean corpuscular volume 80 [foz_us] 80-99 Automated erythrocyte mean corpuscular hemoglobin (mass per erythrocyte) 26 pg 25-34 Automated erythrocyte mean corpuscular hemoglobin concentration measurement ( mass/volume) 33 g/dL 32-36 Automated erythrocyte distribution width ratio 13.8 % 10.0-14.5 Automated blood platelet count (count/volume) 278 10*3/uL 130-400 Automated blood platelet mean volume measurement 9.8 [foz_us] 7.4-10.4 Automated blood neutrophils/100 leukocytes 64 % 42-75 Automated blood lymphocytes/100 leukocytes 23 % 12-44 Blood monocytes/100 leukocytes 12 % 0-12 Automated blood eosinophils/100 leukocytes 1 % 0-10 Automated blood basophils/100 leukocytes 0 % 0-10 Blood neutrophils automated count (number/volume) 4.8 10*3 1.8-7.8 Blood lymphocytes automated count (number/volume) 1.7 10*3 1.0-4.0 Blood monocytes automated count (number/volume) 0.9 10*3 0.0-1.0 Automated eosinophil count 0.1 10*3/uL 0.0-0.3 Automated blood basophil count (count/volume) 0.0 10*3/uL 0.0-0.1 Influenza virus A and B antigen detection - 10/31/17 19:17 FLU RESULT NEGATIVE FOR INFLUENZA A AND B ANTIGENS BY IA [facility] Comprehensive metabolic panel - 12/16/17 10:39 Serum or plasma sodium measurement (moles/volume) 142 mmol/L 135-145 Serum or plasma potassium measurement (moles/volume) 3.2 mmol/L 3.6-5.0 Serum or plasma chloride measurement (moles/volume) 109 mmol/L 98-107 Carbon dioxide 22 mmol/L 21-32 Serum or plasma anion gap determination (moles/volume) 11 mmol/L 5-14 Serum or plasma urea nitrogen measurement (mass/volume) 6 mg/dL 7-18 Serum or plasma creatinine measurement (mass/volume) 0.79 mg/dL 0.60-1.30 Serum or plasma urea nitrogen/creatinine mass ratio 8 [facility] Serum or plasma creatinine measurement with calculation of estimated glomerular filtration rate > [facility] Serum or plasma glucose measurement (mass/volume) 103 mg/dL 70-105 Serum or plasma calcium measurement (mass/volume) 8.5 mg/dL 8.5-10.1 Serum or plasma total bilirubin measurement (mass/volume) 0.8 mg/dL 0.1-1.0 Serum or plasma alkaline phosphatase measurement (enzymatic activity/volume) 124 U/L 40-136 Serum or plasma aspartate aminotransferase measurement (enzymatic activity/ volume) 18 U/L 5-34 Serum or plasma alanine aminotransferase measurement (enzymatic activity/volume ) 14 U/L 0-55 Serum or plasma protein measurement (mass/volume) 6.8 g/dL 6.4-8.2 Serum or plasma albumin measurement (mass/volume) 3.8 g/dL 3.2-4.5 Serum or plasma phosphate measurement (mass/volume) - 12/16/17 10:39 Serum or plasma phosphate measurement (mass/volume) 3.2 mg/dL 2.3-4.7 Magnesium - 12/16/17 10:39 Magnesium 1.9 mg/dL 1.8-2.4 Serum or plasma intact pararthyroid hormone measurement (mass/volume) - 10:39 Serum or plasma intact parathyroid hormone measurement (mass/volume) 69.0 pg/mL 10.0-65.0 Bio-intact parathyroid hormone (PTH) measurement with calcium 8.6 % 8.5-10.5 25-hydroxyvitamin D measurement - 12/16/17 10:39 25-hydroxy vitamin D measurement 10 % 30-100 ALK PHOSPHATASE BONE SPECIFIC - 12/16/17 10:39 Alkaline phosphatase.bone [Presence] in Serum or Plasma 31.2 [facility] Complete blood count (CBC) with automated white blood cell (WBC) differential - 04/12/18 11:36 Blood leukocytes automated count (number/volume) 6.9 10*3/uL 4.3-11.0 Blood erythrocytes automated count (number/volume) 4.70 10*6/uL 4.35-5.85 Venous blood hemoglobin measurement (mass/volume) 12.5 g/dL 11.5-16.0 Blood hematocrit (volume fraction) 38 % 35-52 Automated erythrocyte mean corpuscular volume 80 [foz_us] 80-99 Automated erythrocyte mean corpuscular hemoglobin (mass per erythrocyte) 27 pg 25-34 Automated erythrocyte mean corpuscular hemoglobin concentration measurement ( mass/volume) 33 g/dL 32-36 Automated erythrocyte distribution width ratio 14.8 % 10.0-14.5 Automated blood platelet count (count/volume) 285 10*3/uL 130-400 Automated blood platelet mean volume measurement 10.5 [foz_us] 7.4-10.4 Automated blood neutrophils/100 leukocytes 62 % 42-75 Automated blood lymphocytes/100 leukocytes 31 % 12-44 Blood monocytes/100 leukocytes 6 % 0-12 Automated blood eosinophils/100 leukocytes 1 % 0-10 Automated blood basophils/100 leukocytes 0 % 0-10 Blood neutrophils automated count (number/volume) 4.2 10*3 1.8-7.8 Blood lymphocytes automated count (number/volume) 2.1 10*3 1.0-4.0 Blood monocytes automated count (number/volume) 0.4 10*3 0.0-1.0 Automated eosinophil count 0.1 10*3/uL 0.0-0.3 Automated blood basophil count (count/volume) 0.0 10*3/uL 0.0-0.1 Comprehensive metabolic panel - 04/12/18 11:36 Serum or plasma sodium measurement (moles/volume) 140 mmol/L 135-145 Serum or plasma potassium measurement (moles/volume) 3.9 mmol/L 3.6-5.0 Serum or plasma chloride measurement (moles/volume) 111 mmol/L 98-107 Carbon dioxide 21 mmol/L 21-32 Serum or plasma anion gap determination (moles/volume) 8 mmol/L 5-14 Serum or plasma urea nitrogen measurement (mass/volume) 10 mg/dL 7-18 Serum or plasma creatinine measurement (mass/volume) 0.84 mg/dL 0.60-1.30 Serum or plasma urea nitrogen/creatinine mass ratio 12 NRG Serum or plasma creatinine measurement with calculation of estimated glomerular filtration rate > NRG Serum or plasma glucose measurement (mass/volume) 106 mg/dL 70-105 Serum or plasma calcium measurement (mass/volume) 8.8 mg/dL 8.5-10.1 Serum or plasma total bilirubin measurement (mass/volume) 0.8 mg/dL 0.1-1.0 Serum or plasma alkaline phosphatase measurement (enzymatic activity/volume) 112 U/L 40-136 Serum or plasma aspartate aminotransferase measurement (enzymatic activity/ volume) 31 U/L 5-34 Serum or plasma alanine aminotransferase measurement (enzymatic activity/volume ) 36 U/L 0-55 Serum or plasma protein measurement (mass/volume) 7.4 g/dL 6.4-8.2 Serum or plasma albumin measurement (mass/volume) 4.1 g/dL 3.2-4.5 Serum or plasma troponin i.cardiac measurement (mass/volume) - 04/12/18 11:36 Serum or plasma troponin i.cardiac measurement (mass/volume) < ng/ mL <0.30 Comprehensive metabolic panel - 05/06/18 09:34 Serum or plasma sodium measurement (moles/volume) 138 mmol/L 135-145 Serum or plasma potassium measurement (moles/volume) 3.6 mmol/L 3.6-5.0 Serum or plasma chloride measurement (moles/volume) 110 mmol/L 98-107 Carbon dioxide 22 mmol/L 21-32 Serum or plasma anion gap determination (moles/volume) 6 mmol/L 5-14 Serum or plasma urea nitrogen measurement (mass/volume) 12 mg/dL 7-18 Serum or plasma creatinine measurement (mass/volume) 0.83 mg/dL 0.60-1.30 Serum or plasma urea nitrogen/creatinine mass ratio 14 NRG Serum or plasma creatinine measurement with calculation of estimated glomerular filtration rate > NRG Serum or plasma glucose measurement (mass/volume) 108 mg/dL 70-105 Serum or plasma calcium measurement (mass/volume) 8.9 mg/dL 8.5-10.1 Serum or plasma total bilirubin measurement (mass/volume) 1.0 mg/dL 0.1-1.0 Serum or plasma alkaline phosphatase measurement (enzymatic activity/volume) 120 U/L 40-136 Serum or plasma aspartate aminotransferase measurement (enzymatic activity/ volume) 21 U/L 5-34 Serum or plasma alanine aminotransferase measurement (enzymatic activity/volume ) 23 U/L 0-55 Serum or plasma protein measurement (mass/volume) 7.1 g/dL 6.4-8.2 Serum or plasma albumin measurement (mass/volume) 4.1 g/dL 3.2-4.5 Serum or plasma intact pararthyroid hormone measurement (mass/volume) - 09:34 Serum or plasma intact parathyroid hormone measurement (mass/volume) 63.1 pg/mL 9.0-77.0 Bio-intact parathyroid hormone (PTH) measurement with calcium 9.1 % 8.5-10.5 VITAMIN D 25-HYDROXY - 05/06/18 09:34 VITAMIN D 25-HYDROXY (TOTAL) 28.0 % 30.0-100.0 Encounters ACCT No. Visit Date/Time Discharge Status Pt. Type Provider Facility Loc./Unit Complaint [id number] 11/09/2014 14:55:00 11/09/2014 23:59:59 CLS Outpatient DAVID CONWAY PHD [id number] 10/31/2014 13:40:00 10/31/2014 23:59:59 CLS Outpatient RICHARD NELSON APRN [id number] 10/19/2014 14:19:00 10/19/2014 23:59:59 CLS Outpatient ARMEN MCINTYRE APRN [id number] 04/09/2014 13:50:00 04/09/2014 23:59:59 CLS Outpatient DEBORAH BRYANT DDS Oly [id number] 02/16/2014 09:59:00 02/16/2014 23:59:59 CLS Outpatient DEBORAH BRYANT DDS Oly [id number] 11/22/2013 08:23:00 11/22/2013 23:59:59 CLS Outpatient IRENA SHETH APRN Noreen [id number] 11/22/2013 08:23:00 11/22/2013 23:59:59 CLS Outpatient MERYL FRANKNKOREYIRENA A [id number] 08/30/2013 00:00:00 08/30/2013 23:59:59 CLS Outpatient EHSAN BUCHANAN APRN [id number] 06/09/2013 10:04:00 06/09/2013 23:59:59 CLS Outpatient EHSAN BUCHANAN APRN [id number] 10/05/2012 15:02:00 10/05/2012 23:59:59 CLS Outpatient LULÚ IBRAHIM, YESSY [id number] 09/01/2012 10:39:00 09/01/2012 23:59:59 CLS Outpatient [id number] 12/10/2017 08:36:00 Document Registration [id number] 12/10/2016 09:12:00 Document Registration [id number] 01/06/2017 10:11:00 Document Registration [id number] 05/06/2018 09:23:00 05/06/2018 23:59:59 CLS Outpatient BHAVANI SOMMERS DO [facility] LAB VITAMIN D DEFICIENCY [id number] 04/12/2018 11:24:00 04/12/2018 12:31:00 DIS Emergency LUPE ANTONY 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 REQUISITION CLERK [facility] ER PRESCRIPTION REACTION - REACTION TO PHENTERMINE [id number] 12/23/2017 09:00:00 12/23/2017 23:59:59 CLS Preadmit BHAVANI SOMMERS DO [facility] RAD ELEVATED ALKALINE PHOSPHATASE [id number] 12/23/2017 07:43:00 12/23/2017 23:59:59 CLS Outpatient BHAVANI SOMMERS DO [facility] RAD ELEVATED ALKALINE PHOPHATASE [id number] 12/16/2017 10:21:00 12/16/2017 23:59:59 CLS Outpatient BHAVANI SOMMERS DO [facility] LAB R74.8 [id number] 10/31/2017 17:34:00 10/31/2017 20:08:00 DIS Emergency LUPE ANTONY APRN [facility] ER CONGESTION/COUGH/CP/ DIZZINESS [id number] 03/16/2017 16:56:00 03/16/2017 19:03:00 DIS Emergency DANAE PHILLIPS MD [facility] ER VOMITING/DIZZINESS/CP/ DENTAL PAIN [id number] 02/03/2017 08:48:00 02/03/2017 23:59:59 CLS Outpatient ANGLE GARCIA MD [facility] ENDO POSITIVE OCCULT BLOOD; DIARRHEA [id number] 02/01/2017 05:39:00 02/01/2017 14:26:00 DIS Outpatient ANGLE GARCIA MD [facility] PREOP POSITIVE OCCULT BLOOD; DIARRHEA [id number] 11/20/2015 06:08:00 11/22/2015 12:05:00 DIS Inpatient FABY GONZALEZ MD [facility] LDRP INDUCTION [id number] 10/27/2015 19:37:00 10/27/2015 22:36:00 DIS Outpatient FABY GONZALEZ MD [facility] WSo CONTRACTIONS [id number] 08/05/2015 11:40:00 08/05/2015 13:28:00 DIS Emergency DANAE PHILLIPS MD [facility] ER DIZZINESS/SOA 24 WKS PREG [id number] 07/30/2015 15:20:00 07/30/2015 23:59:59 CLS Outpatient FABY GONZALEZ MD [facility] RAD FOLLOW POOR VISUALIZATION OF HEART AND SPINE [id number] 07/02/2015 12:48:00 07/02/2015 23:59:59 CLS Outpatient MERYL, IRENA Noreen EXPENDITURE REQUISITION CLERK [facility] RAD SURVEY, LATE CARE [id number] 06/08/2015 01:48:00 06/08/2015 02:38:00 DIS Emergency WILLIAM IBRAHIM, RIMMA Sorto [facility] ER UPPER ABD PAIN,POSS SEPSIS [id number] 06/02/2015 03:41:00 06/05/2015 16:35:00 DIS Inpatient DEYSI BLACKMON MD [facility] 4TH HYPOKALEMIA,N/V,ABD PAIN, ACUTE HEPATITIS, [id number] 04/29/2015 09:16:00 05/07/2015 13:55:00 DIS Outpatient SANDOR KEEN MD [facility] REHAB CHRONIC LOW BACK PAIN [id number] 11/23/2014 13:57:00 11/23/2014 23:59:59 CLS Preadmit SANDOR KEEN MD [facility] REHAB [id number] 11/21/2014 10:26:00 11/21/2014 23:59:59 CLS Outpatient SANDOR KEEN MD [facility] RAD CHRONIC LBP [id number] 11/01/2014 20:54:00 11/01/2014 21:24:00 DIS Emergency RIMMA THOMAS MD [facility] ER OVERDOSE [id number] 10/30/2014 19:58:00 10/30/2014 22:32:00 DIS Emergency LUPE ANTONY APRN [facility] ER HIGH BP;DIZZINESS;DIARRHEA ;BLOODY STOOL;WEIGHT LOS [id number] 07/15/2014 13:14:00 07/17/2014 13:55:00 DIS Inpatient TANO GRANDA DO [facility] LDRP LABOR [id number] 06/30/2014 18:18:00 07/01/2014 09:17:00 DIS Inpatient JACKI REID MD [facility] LD CTXS [id number] 06/19/2014 12:15:00 06/19/2014 14:05:00 DIS Outpatient JACKI REID MD [facility] CRAMPING [id number] 06/10/2014 19:31:00 06/10/2014 22:45:00 DIS Outpatient SKY ANDERSON DO [facility] FALL [id number] 05/24/2014 14:20:00 05/24/2014 15:45:00 DIS Outpatient JACKI REID MD [facility] C/O ABD CRAMPING [id number] 04/09/2014 03:57:00 04/09/2014 04:34:00 DIS Emergency JACQUELINE IBRAHIM, DANAE Berg [facility] ER DENTAL PAIN [id number] 04/09/2014 03:26:00 04/09/2014 03:53:00 DIS Outpatient JACKI REID MD [facility] DENTAL PAIN [id number] 03/05/2014 01:34:00 03/05/2014 10:10:00 DIS Outpatient JACKI REID MD [facility] CTXS;ABD PAIN [id number] 02/14/2014 19:49:00 02/14/2014 21:10:00 DIS Emergency RIMMA THOMAS MD [facility] ER ABD PAIN [id number] 10/30/2014 19:57:00 Document Registration [id number] 10/30/2014 19:57:00 Document Registration [id number] 10/30/2014 19:57:00 Document Registration [id number] 11/02/2012 10:50:00 Document Registration [id number] 06/09/2012 19:52:00 Document Registration [id number] 02/02/2012 16:38:00 Document Registration [id number] 01/31/2012 21:13:00 Document Registration [id number] 01/13/2012 19:41:00 Document Registration [id number] 12/29/2011 19:17:00 Document Registration [id number] 12/14/2011 16:34:00 Document Registration [id number] 11/25/2011 22:14:00 Document Registration [id number] 11/20/2011 12:40:00 Document Registration [id number] 10/12/2011 18:41:00 Document Registration [id number] 09/07/2011 13:55:00 Document Registration [id number] 08/28/2011 12:37:00 Document Registration [id number] 01/25/2011 22:53:00 Document Registration [id number] 10/17/2010 20:56:00 Document Registration [id number] 08/29/2010 19:57:00 Document Registration [id number] 12/12/2009 12:29:00 Document Registration [id number] 11/22/2009 22:35:00 Document Registration [id number] 11/19/2009 23:30:00 Document Registration [id number] 10/16/2009 09:46:00 Document Registration [id number] 07/30/2009 12:35:00 Document Registration [id number] 01/19/2017 06:09:00 Document Registration [id number] 07/15/2017 19:07:00 Document Registration [id number] 07/16/2017 05:06:00 Document Registration [id number] 07/16/2017 12:08:00 Document Registration [id number] 05/09/2018 10:30:00 05/09/2018 23:59:59 [facility] FABY GONZALEZ MD [facility] [id number] 07/14/2017 08:40:00 Document Registration [id number] 07/13/2017 14:20:00 Document Registration [id number] 08/06/2015 04:39:56 [place] Document Registration [id number] 01/06/2017 08:07:00 Document Registration [id number] 07/15/2017 07:06:00 Document Registration
[2018-08-17] MEDS ORDERED: ONDANSETRON 4 MG/2 ML (SDV) Z0FRAN IVP ONE (18:30)
[2018-08-17 18:37] LABS: BILIRUBIN,URINE NEGATIVE (NEGATIVE); CLARITY,URINE CLEAR; COLOR,URINE YELLOW; GLUCOSE, URINE (UA) NEGATIVE (NEGATIVE); KETONES,URINE NEGATIVE (NEGATIVE); LEUKOCYTE ESTERASE ,URINE NEGATIVE (NEGATIVE); NITRITE,URINE NEGATIVE (NEGATIVE); PH,URINE 6.5 (5-9); PROTEIN,URINE NEGATIVE (NEGATIVE); UROBILINOGEN,URINE 1 MG/DL (NORMAL)
[2018-08-17 18:38] LABS: ALANINE AMINOTRANSFERASE 46 U/L (0-55); ALBUMIN 4.1 GM/DL (3.2-4.5); ALKALINE PHOSPHATASE 122 U/L (40-136); AMYLASE 78 U/L (25-125); BILIRUBIN,TOTAL 0.7 MG/DL (0.1-1.0); BUN/CREATININE RATIO 12; CARBON DIOXIDE 23 MMOL/L (21-32); CHLORIDE 106 MMOL/L (98-107); CREATININE SERUM 0.99 MG/DL (0.60-1.30); GFR ESTIMATED > 60; GLUCOSE 106 MG/DL (70-105); LIPASE 49 U/L (8-78); MAGNESIUM 1.8 MG/DL (1.8-2.4); POTASSIUM 3.6 MMOL/L (3.6-5.0); SODIUM 140 MMOL/L (135-145); TOTAL PROTEIN 7.4 GM/DL (6.4-8.2)
[2018-08-17 18:47] LABS: BACTERIA,URINE TRACE /HPF; WBC,URINE 0-2 /HPF
[2018-08-17 18:48] LABS: AMPHETAMINE SCREEN, URINE NEGATIVE (NEGATIVE); BARBITURATE SCREEN URINE NEGATIVE (NEGATIVE); BENZODIAZEPINES SCREEN URINE NEGATIVE (NEGATIVE); CANNABINOID SCREEN, URINE NEGATIVE (NEGATIVE); COCAINE SCREEN URINE NEGATIVE (NEGATIVE); METHADONE STAT NEGATIVE (NEGATIVE); METHAMPHETAMINE SCREEN URINE S NEGATIVE (NEGATIVE); OPIATE SCREEN URINE NEGATIVE (NEGATIVE); OXYCODONE STAT NEGATIVE (NEGATIVE); PROPOXYPHENE STAT NEGATIVE (NEGATIVE); TRICYCLIC ANTIDEPRESSANTS SCRE NEGATIVE (NEGATIVE)
--- NOTE | 2018-08-17 19:04 | Diagnostic Imaging Report ---
INDICATION: Sepsis. EXAMINATION: PA and lateral views of the chest. FINDINGS: The heart size and vascularity are normal. Lungs are clear. There is no effusion. There is no acute bony abnormality. IMPRESSION: No acute abnormality is seen. There is no change from 04/12/2018. Dictated by: Dictated on workstation # [id number]
[2018-08-17] MEDS ORDERED: ONDA4TAB8 PO (19:13)
[2018-08-17] MEDS ORDERED: LACT1CAP8 PO (19:13)
[2018-08-17 19:14] VITALS: BP_SYST 137; BP_SYST 140; BP_SYST 144; BP_DIAS 102; BP_DIAS 68; BP_DIAS 89
[2018-08-17 19:24] VITALS: BP 140/81
== END 2018-08-17 19:30 | disposition home or self-care (01) ==
LOC: EDUNIT# 17:58 → ER 17:59
DX: K52.9 Noninfective gastroenteritis and colitis, unspecified (principal); F41.9 Anxiety disorder, unspecified; F32.9 Major depressive disorder, single episode, unspecified; F17.210 Nicotine dependence, cigarettes, uncomplicated; Z88.8 Allergy status to other drugs, medicaments and biological substances; Z90.89 Acquired absence of other organs; Z87.19 Personal history of other diseases of the digestive system; Z82.49 Family history of ischemic heart disease and other diseases of the circulatory system
CPT/HCPCS: 36415; 51701; 71046; 80053; 80306; 81000; 82150; 83605; 83690; 83735; 84703; 85025; 85610; 85730; 86308; 87040; 87430; 87804; 93041; 96361; 96374